=== PATIENT | male | born 1960 | race Caucasian/White ===

== ENCOUNTER 2018-05-01 13:42 | Emergency (ER) | payer OTHER ==
[2018-05-01 14:14] VITALS: TEMP 98.1
[2018-05-01] MEDS ORDERED: ONDANSETRON 4 MG/2 ML VIAL IVP STA (15:12)
[2018-05-01] MEDS ORDERED: SODIUM CHLORIDE 0.9% 1,000 ML IV STA (15:12)
--- NOTE | 2018-05-01 15:19 | ED ---
General Adult HPI - General Chief complaint: Abdominal Pain Stated complaint: vomiting/poss bowel obstruction-sent by Time Seen by Provider: 05/01/18 15:07 Source: patient, RN notes reviewed Mode of arrival: wheelchair Limitations: no limitations - History of Present Illness Initial comments: Patient 58-year-old male presenting to the emergency room today by his family doctor for rule out bowel obstruction. Patient does admit that he's had increased nausea vomiting. States he did not have a bowel today but did have 1 yesterday. States he was having diarrhea off and on. Does to some abdominal pain off and on over the last week. Patient denies any other complaints or symptoms. Patient denies any recent fever, chills, shortness of breath, chest pain, back pain, numbness or tingling, dysuria or hematuria, constipation, headaches or visual changes, or any other complaints. - Related Data Home Medications Medication Instructions Recorded Confirmed Lovastatin [Mevacor] 40 mg PO DAILY 05/01/18 05/01/18 Pioglitazone [Actos] 30 mg PO DAILY 05/01/18 05/01/18 metFORMIN HCL [Glucophage] 850 mg PO TID 05/01/18 05/01/18 Previous Rx's Medication Instructions Recorded Omeprazole [PriLOSEC] 20 mg PO AC-BRKFST 14 Days cap 05/01/18 Ondansetron Odt [Zofran ODT] 4 mg PO Q8HR PRN #20 tab 05/01/18 Allergies Allergy/AdvReac Type Severity Reaction Status Date / Time No Known Allergies Allergy Verified 05/01/18 15:24 Review of Systems ROS Statement: Those systems with pertinent positive or pertinent negative responses have been documented in the HPI. ROS Other: All systems not noted in ROS Statement are negative. Past Medical History Past Medical History: Diabetes Mellitus, Hyperlipidemia History of Any Multi-Drug Resistant Organisms: None Reported Past Surgical History: Orthopedic Surgery Past Psychological History: No Psychological Hx Reported Smoking Status: Never smoker Past Alcohol Use History: None Reported Past Drug Use History: None Reported General Exam - General Exam Comments Initial Comments: General: The patient is awake and alert, in no distress, and does not appear acutely ill. Eye: Pupils are equal, round and reactive to light, extra-ocular movements are intact. No nystagmus. There is normal conjunctiva bilaterally. No signs of icterus. Ears, nose, mouth and throat: There are moist mucous membranes and no oral lesions. Neck: The neck is supple, there is no tenderness or JVD. Cardiovascular: There is a regular rate and rhythm. No murmur, rub or gallop is appreciated. Respiratory: Lungs are clear to auscultation, respirations are non-labored, breath sounds are equal. No wheezes, stridor, rales, or rhonchi. Gastrointestinal: Soft, non-distended, non-tender abdomen without masses or organomegaly noted. There is no rebound or guarding present. No CVA tenderness. Musculoskeletal: Normal ROM, no tenderness. Strength 5/5. Sensation intact. Neurological: A&O x 3. CN II-XII intact, There are no obvious motor or sensory deficits. Coordination appears grossly intact. Speech is normal. Skin: Skin is warm and dry and no rashes or lesions are noted. Psychiatric: Cooperative, appropriate mood & affect, normal judgment. Limitations: no limitations Course Vital Signs 05/01/18 05/01/18 14:12 15:39 Temperature 98.1 F Pulse Rate 100 91 Respiratory 20 18 Rate Blood Pressure 135/89 153/103 O2 Sat by Pulse 99 98 Oximetry Medical Decision Making - Medical Decision Making Patient's labs were reviewed that showed 12,000 white count is had multiple episodes of nausea vomiting diarrhea over the last few weeks. Patient Creatinine mildly elevated was given fluids here in emergency room. Patient is resting comfortable. CT of the abdomen and pelvis does show inflammation obvious soft tissue is no sign of bowel obstruction. Shows chronic inflammation around terminal ileum. Results were discussed with patient. At this time patient resting, appears abdomen was soft. He said no nausea vomiting here in the emergency room. Patient will be discharged home on nausea medication and Prilosec for his symptoms. Advised to follow-up family doctor and also GI for further evaluation. Patient was returning if symptoms increase worsen. - Lab Data Result diagrams: 05/01/18 15:32 05/01/18 15:32 Lab Results 05/01/18 05/01/18 05/01/18 Range/Units 15:32 15:32 15:32 WBC 12.8 H (3.8-10.6) k/uL RBC 5.03 (4.30-5.90) m/uL Hgb 14.0 (13.0-17.5) gm/dL Hct 42.2 (39.0-53.0) % MCV 83.9 (80.0-100.0) fL MCH 27.9 (25.0-35.0) pg MCHC 33.2 (31.0-37.0) g/dL RDW 13.5 (11.5-15.5) % Plt Count 254 (150-450) k/uL Neutrophils % 81 % Lymphocytes % 12 % Monocytes % 4 % Eosinophils % 1 % Basophils % 0 % Neutrophils # 10.4 H (1.3-7.7) k/uL Lymphocytes # 1.5 (1.0-4.8) k/uL Monocytes # 0.6 (0-1.0) k/uL Eosinophils # 0.2 (0-0.7) k/uL Basophils # 0.0 (0-0.2) k/uL PT 10.5 (9.0-12.0) sec INR 1.1 (<1.2) APTT 22.3 (22.0-30.0) sec Sodium 137 (137-145) mmol/L Potassium 5.6 H (3.5-5.1) mmol/L Chloride 97 L (98-107) mmol/L Carbon Dioxide 26 (22-30) mmol/L Anion Gap 14 mmol/L BUN 31 H (9-20) mg/dL Creatinine 1.58 H (0.66-1.25) mg/dL Est GFR (CKD-EPI)AfAm 55 (>60 ml/min/1.73 sqM) Est GFR (CKD-EPI)NonAf 47 (>60 ml/min/1.73 sqM) Glucose 203 H (74-99) mg/dL Calcium 10.3 H (8.4-10.2) mg/dL Total Bilirubin 0.5 (0.2-1.3) mg/dL AST 22 (17-59) U/L ALT 37 (21-72) U/L Alkaline Phosphatase 62 (38-126) U/L Total Protein 7.4 (6.3-8.2) g/dL Albumin 4.8 (3.5-5.0) g/dL Amylase 40 (30-110) U/L Lipase 75 (23-300) U/L Urine Color Urine Appearance (Clear) Urine pH (5.0-8.0) Ur Specific [place] (1.001-1.035) Urine Protein (Negative) Urine Glucose (UA) (Negative) Urine Ketones (Negative) Urine Blood (Negative) Urine Nitrite (Negative) Urine Bilirubin (Negative) Urine Urobilinogen (<2.0) mg/dL Ur Leukocyte Esterase (Negative) 05/01/18 Range/Units 16:30 WBC (3.8-10.6) k/uL RBC (4.30-5.90) m/uL Hgb (13.0-17.5) gm/dL Hct (39.0-53.0) % MCV (80.0-100.0) fL MCH (25.0-35.0) pg MCHC (31.0-37.0) g/dL RDW (11.5-15.5) % Plt Count (150-450) k/uL Neutrophils % % Lymphocytes % % Monocytes % % Eosinophils % % Basophils % % Neutrophils # (1.3-7.7) k/uL Lymphocytes # (1.0-4.8) k/uL Monocytes # (0-1.0) k/uL Eosinophils # (0-0.7) k/uL Basophils # (0-0.2) k/uL PT (9.0-12.0) sec INR (<1.2) APTT (22.0-30.0) sec Sodium (137-145) mmol/L Potassium (3.5-5.1) mmol/L Chloride (98-107) mmol/L Carbon Dioxide (22-30) mmol/L Anion Gap mmol/L BUN (9-20) mg/dL Creatinine (0.66-1.25) mg/dL Est GFR (CKD-EPI)AfAm (>60 ml/min/1.73 sqM) Est GFR (CKD-EPI)NonAf (>60 ml/min/1.73 sqM) Glucose (74-99) mg/dL Calcium (8.4-10.2) mg/dL Total Bilirubin (0.2-1.3) mg/dL AST (17-59) U/L ALT (21-72) U/L Alkaline Phosphatase (38-126) U/L Total Protein (6.3-8.2) g/dL Albumin (3.5-5.0) g/dL Amylase (30-110) U/L Lipase (23-300) U/L Urine Color Yellow Urine Appearance Clear (Clear) Urine pH 5.0 (5.0-8.0) Ur Specific [place] 1.021 (1.001-1.035) Urine Protein Trace H (Negative) Urine Glucose (UA) 2+ H (Negative) Urine Ketones Negative (Negative) Urine Blood Negative (Negative) Urine Nitrite Negative (Negative) Urine Bilirubin Negative (Negative) Urine Urobilinogen <2.0 (<2.0) mg/dL Ur Leukocyte Esterase Negative (Negative) Disposition Clinical Impression: Esophagitis Disposition: HOME SELF-CARE Condition: Good Instructions: Esophagitis (ED) Additional Instructions: Please use medication as discussed. Please follow-up with GI/family doctor in the next 2 days. Please return to emergency room if the symptoms increase or worsen or for any other concerns. Prescriptions: Omeprazole [PriLOSEC] 20 mg PO AC-BRKFST 14 Days cap Ondansetron Odt [Zofran ODT] 4 mg PO Q8HR PRN #20 tab PRN Reason: Nausea Is patient prescribed a controlled substance at d/c from ED?: No Referrals: Romel Martinez DO [Primary Care Provider] - 1-2 days Madhavi Boland MD [STAFF PHYSICIAN] - 1-2 days Time of Disposition: 16:55
[2018-05-01 15:40] VITALS: RESP 18
[2018-05-01 15:44] LABS: Basophils % (A) 0 %; Eosinophils # (A) 0.2 k/uL (0-0.7); Eosinophils % (A) 1 %; HCT 42.2 % (39.0-53.0); Lymphocytes # (A) 1.5 k/uL (1.0-4.8); Lymphocytes % (A) 12 %; MCH 27.9 pg (25.0-35.0); MCHC 33.2 g/dL (31.0-37.0); MCV 83.9 fL (80.0-100.0); Mean Platelet Volume 7.5; Monocytes # (A) 0.6 k/uL (0-1.0); Monocytes % (A) 4 %; Neutrophils # (A) 10.4 k/uL (1.3-7.7); Neutrophils % (A) 81 %; Platelet Count 254 k/uL (150-450); RBC 5.03 m/uL (4.30-5.90); RDW 13.5 % (11.5-15.5); WBC 12.8 k/uL (3.8-10.6)
[2018-05-01 15:50] LABS: Albumin 4.8 g/dL (3.5-5.0); Calcium 10.3 mg/dL (8.4-10.2); Potassium 5.6 mmol/L (3.5-5.1); Total Bilirubin 0.5 mg/dL (0.2-1.3); Total Protein 7.4 g/dL (6.3-8.2)
[2018-05-01 16:26] LABS: INR 1.1 (<1.2); Partial Thromboplastin Time 22.3 sec (22.0-30.0); Prothrombin Time 10.5 sec (9.0-12.0)
--- NOTE | 2018-05-01 16:36 | CT ---
EXAMINATION TYPE: CT abdomen pelvis w con DATE OF EXAM: 05/01/2018 COMPARISON: None HISTORY: Abdominal pain and vomiting. CT DLP: 1502 mGycm Automated exposure control for dose reduction was used. TECHNIQUE: Helical acquisition of images was performed from the lung bases through the pelvis. CONTRAST: Performed without Oral Contrast and with IV Contrast, patient injected with 80 mL of Isovue M300. FINDINGS: LUNG BASES: No significant abnormality is appreciated. Circumferential distal esophageal mucosal thickening is likely related to incomplete distention. Alte rnatively esophagitis could be considered. No proximal dilatation to suggest obstruction. LIVER/GB: No significant abnormality is appreciated. No cholelithiasis. Gallbladder is partially cont racted. PANCREAS: No ductal dilatation. Pancreas enhances homogeneously. SPLEEN: No splenomegaly. ADRENALS: No nodularity or thickening. KIDNEYS: Few too small to accurately characterize bilateral cortical renal lesions may represent cyst s. FREE AIR: No free air is visualized. RETROPERITONEAL ADENOPATHY: No greater than 1 cm short axis lymph nodes are seen within the abdomen or pelvis. REPRODUCTIVE ORGANS: No significant abnormality is seen URINARY BLADDER: No significant abnormality is seen. OSSEOUS STRUCTURES: Patchy geographic areas of lucency are seen within the right femur with probable geode in the left femoral head and lucent lesions of the posterior acetabulum that could represent s ubchondral cyst formation. However further nonemergent evaluation with MRI is recommended of the hips . BOWEL: There is no evidence of dilated large or small bowel. Terminal ileum demonstrates submucosal fat deposition which could relate to chronic inflammatory change however no surrounding inflammatory changes seen on the current examination. Appendix is air-filled and within normal limits. OTHER: Abdominal aorta is of normal course and caliber with moderate calcific atheromatous changes. P ost coil changes are seen in the inguinal canals. IMPRESSION: 1. NO EVIDENCE OF BOWEL OBSTRUCTION OR ACUTE COLITIS ON CT. CIRCUMFERENTIAL DISTAL ESOPHAGEAL MUCOSAL THICKENING MAY RELATE TO INCOMPLETE DISTENTION OR MILD ESOPHAGITIS. ADDITIONALLY SUBMUCOSAL FAT DEPO SITION WITHIN THE TERMINAL ILEUM MAY RELATE TO A CHRONIC INFLAMMATORY PROCESS. 2. NONSPECIFIC FINDINGS WITHIN THE BILATERAL HIPS THAT COULD BE DEGENERATIVE ALTHOUGH BONE MARROW REP LACING PROCESS IS POSSIBLE AND THEREFORE NONEMERGENT FULL CHARACTERIZATION WITH MR OF THE HIPS IS REC OMMENDED.
[2018-05-01 16:43] LABS: Appearance,Urine Clear (Clear); Bilirubin,Urine Negative (Negative); Color,Urine Yellow; Glucose,Urine (UA) 2+ (Negative); Ketones,Urine Negative (Negative); Protein,Urine Trace (Negative); Specific Gravity,Urine 1.021 (1.001-1.035)
[2018-05-01 16:44] LABS: Blood,Urine Negative (Negative); Leukocyte Esterase,Urine Negative (Negative); Nitrite,Urine Negative (Negative); Urobilinogen,Urine <2.0 mg/dL (<2.0)
[2018-05-01 17:34] VITALS: BP 122/78; PULSE 89
== END 2018-05-01 17:28 | disposition home or self-care (01) ==
LOC: EC 13:42
DX: K20.9 Esophagitis, unspecified (principal); E11.9 Type 2 diabetes mellitus without complications; E78.5 Hyperlipidemia, unspecified; Z79.84 Long term (current) use of oral hypoglycemic drugs; Z79.899 Other long term (current) drug therapy
CPT/HCPCS: 36415; 80053; 82150; 83690; 85025; 85610; 85730; 81003; 74177; 99284; 96374; 96361; J2405; Q9967

== ENCOUNTER → 2018-06-14 | Outpatient (CLI) | payer OTHER ==
--- NOTE | 2018-06-15 06:47 | MR ---
EXAMINATION TYPE: MR hip LT wo con DATE OF EXAM: 06/14/2018 COMPARISON: CT abdomen and pelvis May 01, 2018 HISTORY: Lt hip lesion, Abnormal CT scan Standard multiplanar, multisequence MRI departmental protocol Multiplanar, multisequence images of the pelvis focusing on left hip were acquired. FINDINGS: Bone marrow signal intensity shows overall heterogeneity consistent with red marrow reconve rsion. No suspicious focal edema is seen. There is 8 mm oval lesion of T1 hypointensity and T2 hyperi ntensity in the superior lateral left femoral head felt to reflect benign etiology. No additional foc al osseous lesions are present. No linear T1 signal to suggest avascular necrosis is identified. Ther e is mild to moderate symmetric axial joint space loss in both hips with small symmetric hip joint ef fusions. Sacroiliac joints are maintained. Pubic symphysis is intact. No suspicious edema seen at lev el of greater or lesser trochanters bilaterally. Muscle bulk is fairly well preserved bilaterally. No suspicious groin adenopathy or hernias are seen. There is small to moderate-sized left scrotal fluid collection or hydrocele incidentally noted. Bladd er is poorly distended and thus suboptimally evaluated. Prostate gland is normal in size. No suspicio us bowel dilatation is seen. No concerning pelvic fluid collection is noted. IMPRESSION: No suspicious osseous edema is evident. Findings consistent with red marrow reconversion noted.
== END | disposition home or self-care (01) ==
LOC: RADMRIMAIN 18:03
PROVIDERS: ATTEND Family Medicine
DX: R93.8 Abnormal findings on diagnostic imaging of other specified body structures (principal)

== ENCOUNTER → 2018-09-11 | Outpatient (CLI) | payer OTHER ==
--- NOTE | 2018-09-11 15:15 | MR ---
EXAMINATION TYPE: MR brain/orbits wo/w con DATE OF EXAM: 09/11/2018 COMPARISON: NONE HISTORY: 6th Nerve palsy. Left-sided hearing loss and eye issues per patient. TECHNIQUE: Multiplanar, multisequence images of the brain and brainstem is performed without and with IV contras t, utilizing 7.5 mL intravenous Gadavist . Dedicated imaging of the orbits was also performed after b rain imaging. FINDINGS: Diffusion weighted images demonstrate no evidence of a recent infarct or other diffusion ab normality. There is no worrisome extra-axial fluid collection. There is mild ventricular and sulcal prominence consistent with mild age-related cerebral atrophy. There is occasional focus of T2 hyperin tensity seen throughout the deep and periventricular white matter. Lesions are nonspecific in appeara nce and distribution but most likely on basis of product of chronic small vessel ischemic change in p atient of this age. Midline structures demonstrate normal morphology. The craniocervical junction appears within normal limits. Post contrast images demonstrate no abnormal enhancement. The dural venous sinuses appear pa tent. No some patchy fluid signal right mastoid air cells is present axial image 6. The globes are in tact bilaterally. Rectus muscles are symmetric and felt within normal limits. No suspicious intracona l mass is identified. No suspicious asymmetric enhancement is identified. Optic chiasm is not effaced . IMPRESSION: No significant finding is seen to account for patient's symptoms of cranial nerve pals y. No suspicious mass or enhancement is appreciated.
== END | disposition home or self-care (01) ==
LOC: RADMRIMAIN 13:31
PROVIDERS: ATTEND Ophthalmology
DX: H49.20 Sixth [abducent] nerve palsy, unspecified eye (principal)
CPT/HCPCS: 82565; 84520; 70543; 70553; 36415; A9585

== ENCOUNTER 2022-06-17 12:40 | Inpatient (IN) | payer MEDICARE, OTHER ==
--- NOTE | 2022-06-17 13:25 | XR ---
EXAMINATION TYPE: XR chest 2V DATE OF EXAM: 06/17/2022 1:19 PM COMPARISON: none TECHNIQUE: XR chest 2V Frontal and lateral views of the chest. CLINICAL INDICATION:Male, 62 years old with history of difficulty breathing; FINDINGS: Lungs/Pleura: There is no evidence of pleural effusion, focal consolidation, or pneumothorax. Pulmonary vascularity: Pulmonary vascular congestion. Heart/mediastinum: Cardiomediastinal silhouette is enlarged and stable. Musculoskeletal: No acute osseous pathology. IMPRESSION: Cardiomegaly and mild pulmonary vascular congestion. Correlate with BNP for congestive heart failure.
[2022-06-17 13:26] LABS: Basophils # (A) 0.1 k/uL (0-0.2); Basophils % (A) 1 %; Eosinophils # (A) 0.4 k/uL (0-0.7); Eosinophils % (A) 4 %; HCT 32.6 % (39.0-53.0); HGB 10.6 gm/dL (13.0-17.5); Lymphocytes % (A) 10 %; MCH 28.5 pg (25.0-35.0); MCHC 32.5 g/dL (31.0-37.0); MCV 87.7 fL (80.0-100.0); Mean Platelet Volume 7.4; Monocytes # (A) 0.7 k/uL (0-1.0); Monocytes % (A) 8 %; Neutrophils # (A) 7.2 k/uL (1.3-7.7); Neutrophils % (A) 75 %; Platelet Count 272 k/uL (150-450); RBC 3.71 m/uL (4.30-5.90); RDW 13.7 % (11.5-15.5); WBC 9.6 k/uL (3.8-10.6)
[2022-06-17 13:37] LABS: Calcium 9.4 mg/dL (8.4-10.2); Magnesium 1.2 mg/dL (1.6-2.3); Partial Thromboplastin Time 26.5 sec (22.0-30.0); Total Bilirubin 0.5 mg/dL (0.2-1.3); Total Protein 6.4 g/dL (6.3-8.2)
[2022-06-17] MEDS ORDERED: FUROSEMIDE 10 MG/ML 4 ML VIAL IV STA (14:37)
--- NOTE | 2022-06-17 14:46 | ED ---
General Adult HPI - General Chief complaint: Shortness of Breath Stated complaint: Congestive heart failure Time Seen by Provider: 06/17/22 12:54 Source: patient, RN notes reviewed Mode of arrival: ambulatory Limitations: no limitations - History of Present Illness Initial comments: 62-year-old male presents emergency Department chief complaint of shortness of breath. Patient's been having increasing shortness breath, leg swelling. Patient states that he was sent in by [facility] for concerns of CHF. Patient states she's been having difficulty laying flat states he has sees multiples, states that he's noticed that his been fractured 30 pounds. He has no history of CHF does have a history of hypertension states she's positives medications. Patient states he recently moved patient states his legs are painful from the swelling, feels short of breath a short distances of walking. Patient denies any. Chills no cough or cold-like symptoms. - Related Data Home Medications Medication Instructions Recorded Confirmed Lovastatin [Mevacor] 40 mg PO DAILY 05/01/18 06/17/22 Ferrous Sulfate [Feosol] 325 mg PO DAILY 06/17/22 06/17/22 Glimepiride [Amaryl] 2 mg PO W/BRKFST 06/17/22 06/17/22 amLODIPine [Norvasc] 5 mg PO DAILY 06/17/22 06/17/22 lisinopriL 40 mg PO DAILY 06/17/22 06/17/22 metFORMIN HCL 1,000 mg PO BID-W/MEALS 06/17/22 06/17/22 Allergies Allergy/AdvReac Type Severity Reaction Status Date / Time No Known Allergies Allergy Verified 06/17/22 14:33 Review of Systems ROS Statement: Those systems with pertinent positive or pertinent negative responses have been documented in the HPI. ROS Other: All systems not noted in ROS Statement are negative. Past Medical History Past Medical History: Diabetes Mellitus, Hyperlipidemia History of Any Multi-Drug Resistant Organisms: None Reported Past Surgical History: Orthopedic Surgery Past Psychological History: No Psychological Hx Reported Smoking Status: Never smoker Past Alcohol Use History: None Reported Past Drug Use History: None Reported General Exam Limitations: no limitations General appearance: alert, in no apparent distress Head exam: Present: atraumatic, normocephalic, normal inspection Eye exam: Present: normal appearance, PERRL, EOMI. Absent: scleral icterus, conjunctival injection, periorbital swelling ENT exam: Present: normal exam, normal oropharynx, mucous membranes moist Neck exam: Present: normal inspection, full ROM. Absent: tenderness, mening ismus, lymphadenopathy Respiratory exam: Present: rales, decreased breath sounds. Absent: normal lung sounds bilaterally, respiratory distress, wheezes, rhonchi, stridor Cardiovascular Exam: Present: regular rate, normal rhythm, normal heart sounds. Absent: systolic murmur, diastolic murmur, rubs, gallop, clicks Extremities exam: Present: pedal edema (Significant pedal edema) Course Vital Signs 06/17/22 06/17/22 06/17/22 12:42 13:59 14:00 Temperature 98.3 F Pulse Rate 89 78 Respiratory 23 17 17 Rate Blood Pressure 187/92 153/77 O2 Sat by Pulse 96 92 L Oximetry Medical Decision Making - Lab Data Result diagrams: 06/17/22 12:52 06/17/22 12:52 Lab Results 06/17/22 06/17/22 06/17/22 Range/Units 12:52 12:52 12:52 WBC 9.6 (3.8-10.6) k/uL RBC 3.71 L (4.30-5.90) m/uL Hgb 10.6 L (13.0-17.5) gm/dL Hct 32.6 L (39.0-53.0) % MCV 87.7 (80.0-100.0) fL MCH 28.5 (25.0-35.0) pg MCHC 32.5 (31.0-37.0) g/dL RDW 13.7 (11.5-15.5) % Plt Count 272 (150-450) k/uL MPV 7.4 Neutrophils % 75 % Lymphocytes % 10 % Monocytes % 8 % Eosinophils % 4 % Basophils % 1 % Neutrophils # 7.2 (1.3-7.7) k/uL Lymphocytes # 1.0 (1.0-4.8) k/uL Monocytes # 0.7 (0-1.0) k/uL Eosinophils # 0.4 (0-0.7) k/uL Basophils # 0.1 (0-0.2) k/uL PT 11.0 (9.0-12.0) sec INR 1.0 (<1.2) APTT 26.5 (22.0-30.0) sec Sodium 132 L (137-145) mmol/L Potassium 5.0 (3.5-5.1) mmol/L Chloride 98 (98-107) mmol/L Carbon Dioxide 23 (22-30) mmol/L Anion Gap 11 mmol/L BUN 22 H (9-20) mg/dL Creatinine 1.36 H (0.66-1.25) mg/dL Est GFR (CKD-EPI)AfAm 64 (>60 ml/min/1.73 sqM) Est GFR (CKD-EPI)NonAf 55 (>60 ml/min/1.73 sqM) Glucose 130 H (74-99) mg/dL Calcium 9.4 (8.4-10.2) mg/dL Magnesium 1.2 L (1.6-2.3) mg/dL Total Bilirubin 0.5 (0.2-1.3) mg/dL AST 25 (17-59) U/L ALT 21 (4-49) U/L Alkaline Phosphatase 69 (38-126) U/L Troponin I (0.000-0.034) ng/mL NT-Pro-B Natriuret Pep pg/mL Total Protein 6.4 (6.3-8.2) g/dL Albumin 4.0 (3.5-5.0) g/dL 06/17/22 06/17/22 Range/Units 12:52 12:52 WBC (3.8-10.6) k/uL RBC (4.30-5.90) m/uL Hgb (13.0-17.5) gm/dL Hct (39.0-53.0) % MCV (80.0-100.0) fL MCH (25.0-35.0) pg MCHC (31.0-37.0) g/dL RDW (11.5-15.5) % Plt Count (150-450) k/uL MPV Neutrophils % % Lymphocytes % % Monocytes % % Eosinophils % % Basophils % % Neutrophils # (1.3-7.7) k/uL Lymphocytes # (1.0-4.8) k/uL Monocytes # (0-1.0) k/uL Eosinophils # (0-0.7) k/uL Basophils # (0-0.2) k/uL PT (9.0-12.0) sec INR (<1.2) APTT (22.0-30.0) sec Sodium (137-145) mmol/L Potassium (3.5-5.1) mmol/L Chloride (98-107) mmol/L Carbon Dioxide (22-30) mmol/L Anion Gap mmol/L BUN (9-20) mg/dL Creatinine (0.66-1.25) mg/dL Est GFR (CKD-EPI)AfAm (>60 ml/min/1.73 sqM) Est GFR (CKD-EPI)NonAf (>60 ml/min/1.73 sqM) Glucose (74-99) mg/dL Calcium (8.4-10.2) mg/dL Magnesium (1.6-2.3) mg/dL Total Bilirubin (0.2-1.3) mg/dL AST (17-59) U/L ALT (4-49) U/L Alkaline Phosphatase (38-126) U/L Troponin I <0.012 (0.000-0.034) ng/mL NT-Pro-B Natriuret Pep 726 pg/mL Total Protein (6.3-8.2) g/dL Albumin (3.5-5.0) g/dL Disposition Clinical Impression: Pulmonary edema, Hypoxia, Dyspnea Disposition: ADMITTED IP TO THIS HOSP Condition: Poor Referrals: None,Stated [Primary Care Provider] - 1-2 days Time of Disposition: 14:46
[2022-06-17] MEDS ORDERED: ASPIRIN 325 MG TAB PO STA (15:04)
[2022-06-17 16:12] LABS: Appearance,Urine Clear (Clear); Bacteria,Urine Rare /hpf; Bilirubin,Urine Negative (Negative); Blood,Urine Negative (Negative); Color,Urine Light Yellow; Glucose,Urine (UA) Negative (Negative); Ketones,Urine Negative (Negative); Leukocyte Esterase,Urine Negative (Negative); Mucus,Urine Rare /hpf; Nitrite,Urine Negative (Negative); PH, Urine 6.5 (5.0-8.0); Protein,Urine 2+ (Negative); RBC,Urine 1 /hpf (0-5); Specific Gravity,Urine 1.008 (1.001-1.035); Squamous Epithelial Cell,Urine <1 /hpf (0-4); Urobilinogen,Urine <2.0 mg/dL (<2.0); WBC,Urine 1 /hpf (0-5)
[2022-06-17] MEDS ORDERED: DEXTROSE 50% SYRINGE 50 ML IVP PRN ×2 (18:48)
--- NOTE | 2022-06-17 18:52 | P.HPIM ---
History of Present Illness H&P Date: 06/17/22 This is a pleasant 62-year-old male who presents to [facility] for increased shortness of breath and lower extremity edema over the past month. She has a past medical history of hypertension, diabetes, morbid obesity and hyperlipidemia. Patient had an appointment with his PCP earlier today and due to symptoms as described was sent to the hospital for further evaluation. She has noted that when he climbs up and down the stairs a he does get winded and has to stop to catch his breath. Patient also admits that it is difficult to lay flat on his back. She denies alcohol or drug abuse. Cup in the ER did reveal acute kidney injury with a creatinine of 1.36 sodium of 132 and magnesium 1.2. Further lab abnormalities include hemoglobin of 10.6 hematocrit 32.6. At time of examination, patient was resting in bed comfortably and did not look in acute distress. Patient denied chest pain. Patient further denied nausea vomiting fevers or chills. Patient admits to exertional dyspnea. Review of Systems A 14 point review of systems was assessed patient was only positive for those pertinent in HPI Past Medical History Past Medical History: Diabetes Mellitus, Hyperlipidemia History of Any Multi-Drug Resistant Organisms: None Reported Past Surgical History: Orthopedic Surgery Past Psychological History: No Psychological Hx Reported Smoking Status: Never smoker Past Alcohol Use History: None Reported Past Drug Use History: None Reported Medications and Allergies Home Medications Medication Instructions Recorded Confirmed Type Lovastatin [Mevacor] 40 mg PO DAILY 05/01/18 06/17/22 History Ferrous Sulfate [Feosol] 325 mg PO DAILY 06/17/22 06/17/22 History Glimepiride [Amaryl] 2 mg PO W/BRKFST 06/17/22 06/17/22 History amLODIPine [Norvasc] 5 mg PO DAILY 06/17/22 06/17/22 History lisinopriL 40 mg PO DAILY 06/17/22 06/17/22 History metFORMIN HCL 1,000 mg PO BID-W/MEALS 06/17/22 06/17/22 History Allergies Allergy/AdvReac Type Severity Reaction Status Date / Time No Known Allergies Allergy Verified 06/17/22 14:33 Physical Exam Osteopathic Statement: *. No significant issues noted on an osteopathic structu ral exam other than those noted in the History and Physical/Consult. Vitals: Vital Signs Temp Pulse Resp BP Pulse Ox 06/17/22 18:28 82 15 161/48 92 L 06/17/22 15:10 78 16 146/86 96 06/17/22 14:00 17 06/17/22 13:59 78 17 153/77 92 L 06/17/22 12:42 98.3 F 89 23 187/92 96 Intake and Output 06/17/22 06/17/22 06/17/22 06:59 14:59 22:59 Other: Weight 108.862 kg General: [non toxic], [no distress], [appears at stated age obese] Derm: [warm], [dry] Head: [atraumatic], [normocephalic], [symmetric] Eyes: [EOMI], [no lid lag], [anicteric sclera] Mouth: [no lip lesion], [mucus membranes moist] Cardiovascular: [S1S2 reg], [no murmur], [positive posterior tibial pulse bilateral] bilateral lower extremity edema +3, Lungs: [CTA bilateral], [no rhonchi, no rales] , [no accessory muscle use] Abdominal: [soft], [ nontender to palpation], [no guarding], [no appreciable organomegaly] Ext: [no gross muscle atrophy], [no edema], [no contractures] Neuro: [ CN II-XI grossly intact], [no focal neuro deficits] Psych: [Alert], [oriented], [appropriate affect] Results CBC & Chem 7: 06/17/22 12:52 06/17/22 12:52 Labs: Abnormal Lab Results - Last 24 Hours (Table) 06/17/22 06/17/22 06/17/22 Range/Units 12:52 12:52 16:01 RBC 3.71 L (4.30-5.90) m/uL Hgb 10.6 L (13.0-17.5) gm/dL Hct 32.6 L (39.0-53.0) % Sodium 132 L (137-145) mmol/L BUN 22 H (9-20) mg/dL Creatinine 1.36 H (0.66-1.25) mg/dL Glucose 130 H (74-99) mg/dL Magnesium 1.2 L (1.6-2.3) mg/dL Urine Protein 2+ H (Negative) Urine Bacteria Rare H (None) /hpf Urine Mucus Rare H (None) /hpf Thrombosis Risk Factor Assmnt - DVT/VTE Prophylaxis DVT/VTE Prophylaxis: Pharmacologic Prophylaxis ordered Assessment and Plan Assessment: 1. Exertional dyspnea with bilateral lower extremity edema likely due to acute exacerbation of CHF ProBNP elevated at 726 Chest x-ray revealed cardiomegaly and mild pulmonary vascular congestion Obtain echo consult cardiology Telemetry IV diuresis Strict I's and O's Check d-dimer 2. CKD creatinine today is 1.36 average is 1.5 Monitor BUN and creatinine 3. Normocytic anemia Check iron levels Trend CBC 4. History of hypertension At metoprolol 50 mg by mouth twice a day with parameters Continue lisinopril Monitor vitals 5. History of hyperlipidemia Restart statin and aspirin 6. History of diabetes mellitus type 2 [id number] Restart home medication Amaryl hold metformin Insulin sliding scale 7. Hypomagnesemia Magnesium sulfate ordered 8. GI DVT prophylaxis 9. A.m. labs Disposition home with home care Anticipated length of stay is greater than 2 midnight days Patient is a full code Greater than 40 minutes spent coordinating care documenting and counseling patient Time with Patient: Greater than 30
[2022-06-17] MEDS: MAGNESIUM SULFATE-D5W PMX 1 GM in DEXTROSE/WATER 1 100ML.BAG IVPB SCH ×4 (19:54→23:09)
[2022-06-17] MEDS: FUROSEMIDE 10 MG/ML 2 ML VIAL IV SCH (19:55)
[2022-06-17] MEDS: METOPROLOL TARTRATE 50 MG TAB PO SCH (19:55)
[2022-06-17] MEDS: ATORVASTATIN 10 MG TAB PO SCH (19:58)
[2022-06-17] MEDS: HEPARIN SODIUM,PORCINE/PF 5,000 UNIT/0.5 ML SYRINGE SQ SCH ×2 (19:58→23:10)
[2022-06-17] MEDS: FERROUS SULFATE 325 MG TAB PO SCH (19:58)
[2022-06-17] MEDS ORDERED: FAMOTIDINE 20 MG TAB PO SCH (21:00)
[2022-06-18 00:04] LABS: Glucose,Whole Blood 173 mg/dL (70-110)
[2022-06-18 06:14] LABS: Glucose,Whole Blood 159 mg/dL (70-110)
[2022-06-18] MEDS: INSULIN ASPART (NovoLOG) 100 UNIT/ML VIAL SQ SCH ×3 (07:29→16:38)
[2022-06-18] MEDS: HEPARIN SODIUM,PORCINE/PF 5,000 UNIT/0.5 ML SYRINGE SQ SCH ×2 (07:29→16:38)
[2022-06-18] MEDS: GLIMEPIRIDE 2 MG TAB PO SCH (07:29)
[2022-06-18] MEDS ORDERED: IPRATROPIUM-ALBUTEROL 3 ML NEB INHALATION PRN (07:45)
[2022-06-18] MEDS: METOPROLOL TARTRATE 50 MG TAB PO SCH ×2 (08:04→19:49)
[2022-06-18] MEDS: ATORVASTATIN 10 MG TAB PO SCH (08:04)
[2022-06-18] MEDS: FUROSEMIDE 10 MG/ML 2 ML VIAL IV SCH ×2 (08:04→19:50)
[2022-06-18] MEDS: lisinopriL 20 MG TAB PO SCH (08:04)
[2022-06-18] MEDS: ASPIRIN 81 MG PO SCH (08:04)
[2022-06-18] MEDS: FERROUS SULFATE 325 MG TAB PO SCH (08:04)
[2022-06-18 08:34] LABS: ALT 21 U/L (4-49); AST 27 U/L (17-59); African American GFR (CKD) 54 (>60 ml/min/1.73 sqM); Albumin 4.1 g/dL (3.5-5.0); Albumin/Globulin Ratio 1.8; Alkaline Phosphatase 73 U/L (38-126); Anion Gap 10 mmol/L; Blood Urea Nitrogen 24 mg/dL (9-20); Calcium 9.4 mg/dL (8.4-10.2); Carbon Dioxide 27 mmol/L (22-30); Chloride 94 mmol/L (98-107); Globulin 2.3 g/dL; Glucose 177 mg/dL (74-99); Magnesium 1.9 mg/dL (1.6-2.3); Non-African American GFR(CKD) 46 (>60 ml/min/1.73 sqM); Potassium 5.1 mmol/L (3.5-5.1); Sodium 131 mmol/L (137-145); Total Bilirubin 0.6 mg/dL (0.2-1.3); Total Protein 6.4 g/dL (6.3-8.2)
[2022-06-18] MEDS: amLODIPine 5 MG TAB PO SCH (08:39)
[2022-06-18] MEDS ORDERED: ASPIRIN 325 MG TAB PO SCH (09:00)
--- NOTE | 2022-06-18 09:15 | US ---
EXAMINATION TYPE: US venous doppler duplex LE DATE OF EXAM: 06/18/2022 8:41 AM COMPARISON: NONE CLINICAL HISTORY: elevated d-dimer. Bilateral lower extremity edema SIDE PERFORMED: Bilateral TECHNIQUE: The lower extremity deep venous system is examined utilizing real time linear array sonog onofre with graded compression, doppler sonography and color-flow sonography. VESSELS IMAGED: Common Femoral Vein Deep Femoral Vein Greater Saphenous Vein * Femoral Vein Popliteal Vein Small Saphenous Vein * Proximal Calf Veins (* superficial vessels) Right Leg: Negative for DVT Left Leg: Negative for DVT IMPRESSION: No evidence for DVT.
--- NOTE | 2022-06-18 09:19 | P.CRDCN ---
History of Present Illness History of present illness: HISTORY OF PRESENTING ILLNESS This is a pleasant 62-year-old male past medical history significant for type 2 diabetes, hypertension, dyslipidemia, chronic kidney disease. 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 He is unsure who was PCP is, currently goes to [facility]. We have been asked to see in consultation for congestive heart failure. Patient presents to the emergency room with worsening shortness of breath, dyspnea on exertion, bilateral lower extremity edema, symptoms of o rthopnea and weight gain. He also noticed walking up the stairs is more difficult and has increased shortness of breath. Patient initially presented to [facility] and patient was recommended to go to the emergency department. He denies any history of CAD, NE, stroke. He does endorse someone telling him that he had kidney problems. Family history includes father had an NE. He denies any alcohol, tobacco or illicit drug use. He denies any chest pain, lightheadedness, dizziness, syncope or near syncope, palpitations. On admission patient's blood pressure was elevated 180s/90s. Chest xray was concerning for fluid overload. Patient was started on IV Lasix. Patient with documented 2L u rine output. DIAGNOSTICS * EKG reveals sinus rhythm, rate 84, slow R wave progression, no acute STT wave abnormalities suggest ischemia * Chest xray cardiomegaly, pulmonary vascular congestion. * Laboratory reviewed, WBC 9.6, hemoglobin 10.6, platelets 272, d-dimer 2.0, sodium 132, potassium 5.0, BUN 22, serum creatinine 1.36, magnesium 1.2, hemoglobin A1c 8.6, troponin negative, proBNP 726, TSH within normal limits * Current home medications include metformin 1000 mg twice a day, amlodipine 5 g daily, lovastatin 40 mg daily, glimepiride 2 mg daily, lisinopril 40 mg daily, ferrous sulfate REVIEW OF SYSTEMS At the time of my exam: CONSTITUTIONAL: Denies fever or chills. CARDIOVASCULAR: Denies chest pain,+ shortness of breath, +orthopnea, +LE edema Denies PND or palpitations. RESPIRATORY: Denies cough. GASTROINTESTINAL: Denies abdominal pain, diarrhea, constipation, nausea or vomiting. MUSCULOSKELETAL: Denies myalgias. NEUROLOGIC: Denies numbness, tingling, headacbe or weakness. ENDOCRINE: Denies fatigue, weight change, polydipsia or polyurina. GENITOURINARY: Denies burning, hematuria or urgency with micturation. HEMATOLOGIC: Denies history of anemia or bleeding. PHYSICAL EXAMINATION Blood pressure 155/53, heart rate 96, afebrile, saturations 90% on room air CONSTITUTIONAL: No apparent distress. HEENT: Head is normocephalic. Pupils are equal, round. Sclerae anicteric. Mucous membranes of the mouth are moist. +JVD. No carotid bruit. CHEST EXAMINATION: Lungs are crackles in the bases to auscultation. No chest wall tenderness is noted on palpation or with deep breathing. HEART EXAMINATION: Regular rate and rhythm. S1, S2 heard. No murmurs, gallops or rub. ABDOMEN: Distended, positive bowel sounds EXTREMITIES: 2+ peripheral pulses, 1-2+ bilateral lower extremity edema and no calf tenderness. NEUROLOGIC EXAMINATION: Patient is awake, alert and oriented x3. ASSESSMENT New onset acute heart failure exacerbation, unknown EF, echo pending Type 2 diabetes Chronic kidney disease, stage III Hypertension Dyslipidemia PLAN Continue IV Lasix Monitor I/Os daily weights, renal function and electrolytes Obtain 2D echocardiogram and doppler study to assess cardiac structure and function. Continue lisinopril, amlodipine and statin Continue beta carrie Further recommendations based on clinical course Nurse practitioner note has been reviewed by physician. Signing provider agrees with the documented findings, assessment, and plan of care. Past Medical History Past Medical History: Diabetes Mellitus, Hyperlipidemia History of Any Multi-Drug Resistant Organisms: None Reported Past Surgical History: Orthopedic Surgery Past Anesthesia/Blood Transfusion Reactions: No Reported Reaction Past Psychological History: No Psychological Hx Reported Smoking Status: Never smoker Past Alcohol Use History: None Reported Past Drug Use History: None Reported Medications and Allergies Home Medications Medication Instructions Recorded Confirmed Type Lovastatin [Mevacor] 40 mg PO DAILY 05/01/18 06/17/22 History Ferrous Sulfate [Feosol] 325 mg PO DAILY 06/17/22 06/17/22 History Glimepiride [Amaryl] 2 mg PO W/BRKFST 06/17/22 06/17/22 History amLODIPine [Norvasc] 5 mg PO DAILY 06/17/22 06/17/22 History lisinopriL 40 mg PO DAILY 06/17/22 06/17/22 History metFORMIN HCL 1,000 mg PO BID-W/MEALS 06/17/22 06/17/22 History Allergies Allergy/AdvReac Type Severity Reaction Status Date / Time No Known Allergies Allergy Verified 06/17/22 14:33 Physical Exam Vitals: Vital Signs Temp Pulse Pulse Resp BP BP Pulse Ox 06/18/22 02:18 97.9 F 70 18 153/72 93 L 06/17/22 20:04 98.0 F 84 20 184/86 94 L 06/17/22 20:00 98.0 F 84 20 189/86 94 L 06/17/22 18:28 82 15 161/48 92 L 06/17/22 15:10 78 16 146/86 96 06/17/22 14:00 17 06/17/22 13:59 78 17 153/77 92 L 06/17/22 12:42 98.3 F 89 23 187/92 96 Intake and Output 06/17/22 06/18/22 06/18/22 22:59 06:59 14:59 Intake Total 620 220 Output Total 875 1150 Balance -255 -930 Intake: Intake, IV Titration 300 100 Amount Magnesium Sulfate-D5w Pmx 300 100 1 gm In Dextrose/Water 1 100ml.bag @ 100 mls/hr IVPB Q1H [facility] Rx#: [id number] Oral 320 120 Output: Urine 875 1150 Other: Weight 108.862 kg 176 kg Results 06/17/22 12:52 06/18/22 07:29 Cardiac Enzymes 06/17/22 06/17/22 Range/Units 12:52 12:52 AST 25 (17-59) U/L Troponin I <0.012 (0.000-0.034) ng/mL Coagulation 06/17/22 Range/Units 12:52 PT 11.0 (9.0-12.0) sec APTT 26.5 (22.0-30.0) sec CBC 06/17/22 Range/Units 12:52 WBC 9.6 (3.8-10.6) k/uL RBC 3.71 L (4.30-5.90) m/uL Hgb 10.6 L (13.0-17.5) gm/dL Hct 32.6 L (39.0-53.0) % Plt Count 272 (150-450) k/uL Comprehensive Metabolic Panel 06/17/22 Range/Units 12:52 Sodium 132 L (137-145) mmol/L Potassium 5.0 (3.5-5.1) mmol/L Chloride 98 (98-107) mmol/L Carbon Dioxide 23 (22-30) mmol/L BUN 22 H (9-20) mg/dL Creatinine 1.36 H (0.66-1.25) mg/dL Glucose 130 H (74-99) mg/dL Calcium 9.4 (8.4-10.2) mg/dL AST 25 (17-59) U/L ALT 21 (4-49) U/L Alkaline Phosphatase 69 (38-126) U/L Total Protein 6.4 (6.3-8.2) g/dL Albumin 4.0 (3.5-5.0) g/dL Current Medications Generic Name Dose Route Start Last Admin Trade Name Freq PRN Reason Stop Dose Admin Aspirin 325 mg 06/18/22 09:00 Aspirin 325 Mg Tab PO DAILY [facility] Atorvastatin Calcium 10 mg 06/17/22 18:45 06/17/22 19:58 Atorvastatin 10 Mg Tab PO 10 mg DAILY [facility] Administration Dextrose/Water 25 ml 06/17/22 18:48 Dextrose 50% Syringe 50 Ml IVP PER PROTOCOL PRN Hypoglycemia Protocol Dextrose/Water 50 ml 06/17/22 18:48 Dextrose 50% Syringe 50 Ml IVP PER PROTOCOL PRN Hypoglycemia Protocol Famotidine 40 mg 06/17/22 21:00 06/17/22 19:55 Famotidine 20 Mg Tab PO 40 mg HS [facility] Administration Ferrous Sulfate 325 mg 06/17/22 18:45 06/17/22 19:58 Ferrous Sulfate 325 Mg Tab PO 325 mg DAILY [facility] Administration Furosemide 20 mg 06/17/22 21:00 06/17/22 19:55 Furosemide 10 Mg/Ml 2 Ml Vial IV 20 mg Q12HR [facility] Administration Glimepiride 2 mg 06/18/22 07:30 Glimepiride 2 Mg Tab PO W/BRKFST [facility] Heparin Sodium (Porcine) 5,000 unit 06/17/22 18:45 06/17/22 23:10 Heparin Sodium,Porcine/Pf 5,000 Unit/0.5 Ml Syringe SQ 5,000 unit Q8HR [facility] Administration Insulin Aspart 0 unit 06/18/22 07:30 Insulin Aspart (Novolog) 100 Unit/Ml Vial SQ AC-TID [facility] Protocol Lisinopril 40 mg 06/18/22 09:00 Lisinopril 20 Mg Tab PO DAILY [facility] Metoprolol Tartrate 50 mg 06/17/22 21:00 06/17/22 19:55 Metoprolol Tartrate 50 Mg Tab PO 50 mg BID [facility] Administration Intake and Output 06/17/22 06/18/22 06/18/22 22:59 06:59 14:59 Intake Total 620 220 Output Total 875 1150 Balance -255 -930 Intake: Intake, IV Titration 300 100 Amount Magnesium Sulfate-D5w Pmx 300 100 1 gm In Dextrose/Water 1 100ml.bag @ 100 mls/hr IVPB Q1H [facility] Rx#: [id number] Oral 320 120 Output: Urine 875 1150 Other: Weight 108.862 kg 176 kg 06/17/22 12:52 06/17/22 12:52
[2022-06-18 11:21] LABS: Glucose,Whole Blood 152 mg/dL (70-110)
[2022-06-18 13:31] LABS: Basophils # (A) 0.07 X 10*3/uL (0.00-0.10); Basophils % (A) 0.6 %; Eosinophils # (A) 0.33 X 10*3/uL (0.04-0.35); Eosinophils % (A) 2.9 %; HGB 9.9 g/dL (13.0-17.0); Immature Grans, Automated 0.5 %; Lymphocytes # (A) 1.09 X 10*3/uL (0.90-5.00); Lymphocytes % (A) 9.5 %; MCH 28.7 pg (27.0-32.0); Mean Platelet Volume 10.8 fL (9.5-12.2); Monocytes # (A) 1.14 X 10*3/uL (0.20-1.00); NRBC Per 100 WBC 0 /100 WBCS (0.0-0.0); Neutrophils # (A) 8.74 X 10*3/uL (1.80-7.70); Neutrophils % (A) 76.5 %; Platelet Count 215 X 10*3/uL (140-440); RBC 3.45 X 10*6/uL (4.40-5.60); RDW 13.7 % (11.5-14.5); WBC 11.43 X 10*3/uL (4.50-10.00)
--- NOTE | 2022-06-18 15:25 | CA ---
Transthoracic Echo Report Name: Gopi York Age: 62 Gender: M : 1960 Exam Date: 06/18/2022 13:53 Exam Location: [place] [facility] Ht (in): 64 Wt (lb): 388 Ordering Physician: Cayden Novoa Attending/Referring Phys: [id number], Bright [employer]ing Cutter Honey Patel, RDCS Procedure CPT: Indications: Pulmonary edema, dyspnea Cardiac Hx: Technical Quality: Fair Contrast 1: Total Dose (mL): Contrast 2: Total Dose (mL): MEASUREMENTS (Male / Female) Normal Values 2D ECHO LV Diastolic Diameter PLAX 4.3 cm 4.2 - 5.9 / 3.9 - 5.3 cm LV Systolic Diameter PLAX 3.2 cm IVS Diastolic Thickness 1.3 cm 0.6 - 1.0 / 0.6 - 0.9 cm LVPW Diastolic Thickness 1.9 cm 0.6 - 1.0 / 0.6 - 0.9 cm LV Relative Wall Thickness 0.8 RV Internal Dim ED PLAX 3.8 cm M-MODE Aortic Root Diameter MM 3.3 cm DOPPLER MV Area PHT 3.8 cm??? Mitral E Point Velocity 80.4 cm/s Mitral A Point Velocity 77.3 cm/s Mitral E to A Ratio 1.0 MV Deceleration Time 197.4 ms FINDINGS Left Ventricle Left ventricular ejection fraction is estimated at 50-55%. Mildly increased left ventricular wall thickness. Right Ventricle Mild right ventricular dilatation. Right Atrium Normal right atrial size. Left Atrium Normal left atrial size. Mitral Valve Structurally normal mitral valve. Mild mitral regurgitation. Aortic Valve Trileaflet aortic valve. Tricuspid Valve Structurally normal tricuspid valve. Mild tricuspid regurgitation. Pulmonic Valve Structurally normal pulmonic valve. Pericardium Normal pericardium. Aorta Normal size aortic root and proximal ascending aorta. CONCLUSIONS Normal LV systolic function Mild mitral regurgitation Previewed by: Dr. Gabriel Boalnd MD (Electronically Signed) Final Date: 18 June 2022 15:24
--- NOTE | 2022-06-18 16:13 | NM ---
EXAMINATION TYPE: NM pul vent and perfuse DATE OF EXAM: 06/18/2022 COMPARISON: NONE HISTORY: Shortness of breath TECHNIQUE: Utilizing inhalation of 62.6 mCi Tc 99m DTPA aerosol and intravenous injection of 4.5 mCi of Tc 99m MAA, ventilation and perfusion images are acquired post injection in multiple projections. FINDINGS: A couple of a small matched defects noted right lower lobe. No pulmonary perfusion ventilation mismat ch seen. IMPRESSION: Low probability for pulmonary embolism.
[2022-06-18 16:30] LABS: Glucose,Whole Blood 181 mg/dL (70-110)
[2022-06-18 16:31] LABS: % Iron Saturation 6.21 (15.00-50.00); Iron 24 ug/dL (65-175); LDL Cholesterol,Calculated 60.5 mg/dL (0.0-131.0); Total Iron Binding Capacity 385 ug/dL (228-460); VLDL Calculation 18.04 mg/dL (5.00-40.00)
--- NOTE | 2022-06-18 16:44 | P.PN ---
Subjective Progress Note Date: 06/18/22 Principal diagnosis: Patient seen and examined at bedside patient denies chest pain. Patient does have exertional dyspnea. Lower extremity edema is persistent. VQ scan was low probability for PE lower extremity Dopplers were negative for DVT. Echo revealed a preserved EF. Objective - Vital Signs Vital signs: Vital Signs Temp 98.6 F 06/18/22 07:43 Pulse 96 06/18/22 07:43 Resp 17 06/18/22 07:43 BP 155/53 06/18/22 07:43 Pulse Ox 98 06/18/22 07:43 FiO2 Intake & Output 06/17/22 06/18/22 06/18/22 18:59 06:59 18:59 Intake Total 840 Output Total 2024 Balance -1185 -700 Weight 108.862 kg 176 kg 176 kg Intake: Intake, IV Titration 400 Amount Magnesium Sulfate-D5w Pmx 400 1 gm In Dextrose/Water 1 100ml.bag @ 100 mls/hr IVPB Q1H [facility] Rx#: [id number] Oral 440 Output: Urine 2024 Other: # Voids 2 # Bowel Movements 0 - Exam General: [non toxic], [no distress], [appears at stated age] Derm: [warm], [dry] Head: [atraumatic], [normocephalic], [symmetric] Eyes: [EOMI], [no lid lag], [anicteric sclera] Mouth: [no lip lesion], [mucus membranes moist] Cardiovascular: [S1S2 reg], [no murmur], [positive posterior tibial pulse bilateral], Lungs: [CTA bilateral], [no rhonchi, no rales] , [no accessory muscle use] Abdominal: [soft], [ nontender to palpation], [no guarding], [no appreciable organomegaly] Ext: [no gross muscle atrophy], [S2 bilateral lower extremity edema], [no contractures] Neuro: [ CN II-XI grossly intact], [no focal neuro deficits] Psych: [Alert], [oriented], [appropriate affect] - Labs CBC & Chem 7: 06/18/22 07:29 06/18/22 07:29 Labs: Abnormal Lab Results - Last 24 Hours (Table) 06/17/22 06/17/22 06/18/22 Range/Units 19:11 19:11 00:03 WBC (4.50-10.00) X 10*3/uL RBC (4.40-5.60) X 10*6/uL Hgb (13.0-17.0) g/dL Hct (39.6-50.0) % Immature Gran # (0.00-0.04) X 10*3/uL Neutrophils # (1.80-7.70) X 10*3/uL Monocytes # (0.20-1.00) X 10*3/uL D-Dimer 2.02 H (<0.60) mg/L FEU Sodium (137-145) mmol/L Chloride (98-107) mmol/L BUN (9-20) mg/dL Creatinine (0.66-1.25) mg/dL Glucose (74-99) mg/dL POC Glucose (mg/dL) 173 H (70-110) mg/dL Hemoglobin A1c 8.6 H (0.0-6.0) % Iron (65-175) ug/dL % Saturation (15.00-50.00) HDL Cholesterol (40.00-60.00) mg/dL 06/18/22 06/18/22 06/18/22 Range/Units 06:13 07:29 07:29 WBC 11.43 H (4.50-10.00) X 10*3/uL RBC 3.45 L (4.40-5.60) X 10*6/uL Hgb 9.9 L (13.0-17.0) g/dL Hct 30.0 L (39.6-50.0) % Immature Gran # 0.06 H (0.00-0.04) X 10*3/uL Neutrophils # 8.74 H (1.80-7.70) X 10*3/uL Monocytes # 1.14 H (0.20-1.00) X 10*3/uL D-Dimer (<0.60) mg/L FEU Sodium (137-145) mmol/L Chloride (98-107) mmol/L BUN (9-20) mg/dL Creatinine (0.66-1.25) mg/dL Glucose (74-99) mg/dL POC Glucose (mg/dL) 159 H (70-110) mg/dL Hemoglobin A1c 8.3 H (0.0-6.0) % Iron (65-175) ug/dL % Saturation (15.00-50.00) HDL Cholesterol (40.00-60.00) mg/dL 06/18/22 06/18/22 06/18/22 Range/Units 07:29 11:19 16:29 WBC (4.50-10.00) X 10*3/uL RBC (4.40-5.60) X 10*6/uL Hgb (13.0-17.0) g/dL Hct (39.6-50.0) % Immature Gran # (0.00-0.04) X 10*3/uL Neutrophils # (1.80-7.70) X 10*3/uL Monocytes # (0.20-1.00) X 10*3/uL D-Dimer (<0.60) mg/L FEU Sodium 131 L (137-145) mmol/L Chloride 94 L (98-107) mmol/L BUN 24 H (9-20) mg/dL Creatinine 1.57 H (0.66-1.25) mg/dL Glucose 177 H (74-99) mg/dL POC Glucose (mg/dL) 152 H 181 H (70-110) mg/dL Hemoglobin A1c (0.0-6.0) % Iron 24 L (65-175) ug/dL % Saturation 6.21 L (15.00-50.00) HDL Cholesterol 60.50 H (40.00-60.00) mg/dL Assessment and Plan Assessment: 1. Exertional dyspnea with bilateral lower extremity edema likely due to acute exacerbation of diastolic CHF Echo reveals preserved EF of 50-55% Cardiology recommendations appreciated Telemetry IV diuresis Strict I's and O's 2. CKD creatinine today is 1.36 average is 1.5 Monitor BUN and creatinine 3. Normocytic anemia ferrous sulfate BID 4. History of hypertension Continue beta carrie ACEI calcium channel carrie and Lasix Monitor vitals 5. History of hyperlipidemia Restart statin and aspirin 6. History of diabetes mellitus type 2 [id number] Restart home medication Amaryl hold metformin Insulin sliding scale 7. Hypomagnesemia replaced Magnesium sulfate ordered 8. GI DVT prophylaxis 9. A.m. labs Disposition home with home care Anticipated length of stay is greater than 2 midnight days Patient is a full code
[2022-06-18] MEDS: FAMOTIDINE 20 MG TAB PO SCH (19:50)
[2022-06-18 20:26] LABS: Glucose,Whole Blood 182 mg/dL (70-110)
[2022-06-18 23:58] LABS: Glucose,Whole Blood 154 mg/dL (70-110)
[2022-06-19] MEDS: HEPARIN SODIUM,PORCINE/PF 5,000 UNIT/0.5 ML SYRINGE SQ SCH ×3 (00:16→14:37)
[2022-06-19 06:13] LABS: Glucose,Whole Blood 145 mg/dL (70-110)
[2022-06-19 06:59] LABS: Glucose,Whole Blood 148 mg/dL (70-110)
[2022-06-19] MEDS: INSULIN ASPART (NovoLOG) 100 UNIT/ML VIAL SQ SCH ×3 (07:37→17:10)
[2022-06-19] MEDS: lisinopriL 20 MG TAB PO SCH (07:42)
[2022-06-19] MEDS: GLIMEPIRIDE 2 MG TAB PO SCH (07:42)
[2022-06-19] MEDS: METOPROLOL TARTRATE 50 MG TAB PO SCH ×2 (07:42→20:22)
[2022-06-19] MEDS: ASPIRIN 81 MG PO SCH (07:42)
[2022-06-19] MEDS: FERROUS SULFATE 325 MG TAB PO SCH (07:42)
[2022-06-19] MEDS: amLODIPine 5 MG TAB PO SCH (07:42)
[2022-06-19] MEDS: ATORVASTATIN 10 MG TAB PO SCH (07:42)
[2022-06-19] MEDS: FUROSEMIDE 10 MG/ML 2 ML VIAL IV SCH (07:43)
[2022-06-19 12:06] LABS: Glucose,Whole Blood 208 mg/dL (70-110)
[2022-06-19 12:09] LABS: Basophils # (A) 0.08 X 10*3/uL (0.00-0.10); Basophils % (A) 0.8 %; Eosinophils # (A) 0.23 X 10*3/uL (0.04-0.35); Eosinophils % (A) 2.3 %; HCT 29.3 % (39.6-50.0); HGB 9.9 g/dL (13.0-17.0); Immature Grans, Automated 0.5 %; Lymphocytes % (A) 11.9 %; MCH 28.8 pg (27.0-32.0); MCHC 33.8 g/dL (32.0-37.0); MCV 85.2 fL (80.0-97.0); Mean Platelet Volume 10.2 fL (9.5-12.2); Monocytes # (A) 0.95 X 10*3/uL (0.20-1.00); Monocytes % (A) 9.4 %; NRBC Per 100 WBC 0 /100 WBCS (0.0-0.0); Neutrophils # (A) 7.56 X 10*3/uL (1.80-7.70); Neutrophils % (A) 75.1 %; Platelet Count 277 X 10*3/uL (140-440); RBC 3.44 X 10*6/uL (4.40-5.60); RDW 13.4 % (11.5-14.5); WBC 10.07 X 10*3/uL (4.50-10.00)
[2022-06-19 12:13] LABS: African American GFR (CKD) 52.4 (60.0-200.0); Albumin 3.8 g/dL (3.8-4.9); Albumin/Globulin Ratio 1.58 (1.60-3.17); Anion Gap 13.8 mmol/L (10.00-18.00); BUN/Creat Ratio 17.75 Ratio (12.00-20.00); Blood Urea Nitrogen 28.4 mg/dL (9.0-27.0); Calcium 9.3 mg/dL (8.7-10.3); Carbon Dioxide 24.2 mmol/L (20.0-27.5); Globulin 2.4 g/dL (1.6-3.3); Non-African American GFR(CKD) 45.2 (60.0-200.0); Potassium 4.8 mmol/L (3.5-5.5); Total Bilirubin 0.3 mg/dL (0.30-1.20); Total Protein 6.2 g/dL (6.2-8.2)
--- NOTE | 2022-06-19 13:05 | P.PN ---
Subjective Progress Note Date: 06/19/22 The patient was seen at bedside, no acute events overnight. Reports that his breathing is overall getting better. Objective - Vital Signs Vital signs: Vital Signs Temp 97.8 F 06/19/22 07:33 Pulse 68 06/19/22 07:33 Resp 17 06/19/22 07:45 BP 150/79 06/19/22 07:33 Pulse Ox 91 L 06/19/22 09:52 FiO2 Intake & Output 06/18/22 06/19/22 06/19/22 18:59 06:59 18:59 Intake Total 240 Output Total 700 1350 300 Balance -700 -1110 -300 Weight 106 kg 187 kg Intake: Oral 240 Output: Urine 700 1350 300 Other: # Voids 2 # Bowel Movements 0 - Exam General: [non toxic], [no distress], [appears at stated age] Derm: [warm], [dry] Head: [atraumatic], [normocephalic], [symmetric] Eyes: [EOMI], [no lid lag], [anicteric sclera] Mouth: [no lip lesion], [mucus membranes moist] Cardiovascular: [S1S2 reg], [no murmur], [positive posterior tibial pulse bilateral], Lungs: [CTA bilateral], [no rhonchi, no rales] , [no accessory muscle use] Abdominal: [soft], [ nontender to palpation], [no guarding], [no appreciable organomegaly] Ext: [no gross muscle atrophy], [S2 bilateral lower extremity edema], [no contractures] Neuro: [ CN II-XI grossly intact], [no focal neuro deficits] Psych: [Alert], [oriented], [appropriate affect] - Labs CBC & Chem 7: 06/19/22 07:40 06/19/22 07:44 Labs: Abnormal Lab Results - Last 24 Hours (Table) 06/18/22 06/18/22 06/18/22 Range/Units 07:29 07:29 07:29 WBC 11.43 H (4.50-10.00) X 10*3/uL RBC 3.45 L (4.40-5.60) X 10*6/uL Hgb 9.9 L (13.0-17.0) g/dL Hct 30.0 L (39.6-50.0) % Immature Gran # 0.06 H (0.00-0.04) X 10*3/uL Neutrophils # 8.74 H (1.80-7.70) X 10*3/uL Monocytes # 1.14 H (0.20-1.00) X 10*3/uL Sodium (135-145) mmol/L Chloride (96-109) mmol/L BUN (9.0-27.0) mg/dL Creatinine (0.6-1.5) mg/dL Est GFR (CKD-EPI)AfAm (60.0-200.0) Est GFR (CKD-EPI)NonAf (60.0-200.0) Glucose (70-110) mg/dL POC Glucose (mg/dL) (70-110) mg/dL Hemoglobin A1c 8.3 H (0.0-6.0) % Iron 24 L (65-175) ug/dL % Saturation 6.21 L (15.00-50.00) Albumin/Globulin Ratio (1.60-3.17) g/dL HDL Cholesterol 60.50 H (40.00-60.00) mg/dL Vitamin D 25-Hydroxy 23.8 L (30.0-100.0) ng/mL 06/18/22 06/18/22 06/18/22 Range/Units 16:29 20:19 23:56 WBC (4.50-10.00) X 10*3/uL RBC (4.40-5.60) X 10*6/uL Hgb (13.0-17.0) g/dL Hct (39.6-50.0) % Immature Gran # (0.00-0.04) X 10*3/uL Neutrophils # (1.80-7.70) X 10*3/uL Monocytes # (0.20-1.00) X 10*3/uL Sodium (135-145) mmol/L Chloride (96-109) mmol/L BUN (9.0-27.0) mg/dL Creatinine (0.6-1.5) mg/dL Est GFR (CKD-EPI)AfAm (60.0-200.0) Est GFR (CKD-EPI)NonAf (60.0-200.0) Glucose (70-110) mg/dL POC Glucose (mg/dL) 181 H 182 H 154 H (70-110) mg/dL Hemoglobin A1c (0.0-6.0) % Iron (65-175) ug/dL % Saturation (15.00-50.00) Albumin/Globulin Ratio (1.60-3.17) g/dL HDL Cholesterol (40.00-60.00) mg/dL Vitamin D 25-Hydroxy (30.0-100.0) ng/mL 06/19/22 06/19/22 06/19/22 Range/Units 06:11 06:57 07:40 WBC 10.07 H (4.50-10.00) X 10*3/uL RBC 3.44 L (4.40-5.60) X 10*6/uL Hgb 9.9 L (13.0-17.0) g/dL Hct 29.3 L (39.6-50.0) % Immature Gran # 0.05 H (0.00-0.04) X 10*3/uL Neutrophils # (1.80-7.70) X 10*3/uL Monocytes # (0.20-1.00) X 10*3/uL Sodium (135-145) mmol/L Chloride (96-109) mmol/L BUN (9.0-27.0) mg/dL Creatinine (0.6-1.5) mg/dL Est GFR (CKD-EPI)AfAm (60.0-200.0) Est GFR (CKD-EPI)NonAf (60.0-200.0) Glucose (70-110) mg/dL POC Glucose (mg/dL) 145 H 148 H (70-110) mg/dL Hemoglobin A1c (0.0-6.0) % Iron (65-175) ug/dL % Saturation (15.00-50.00) Albumin/Globulin Ratio (1.60-3.17) g/dL HDL Cholesterol (40.00-60.00) mg/dL Vitamin D 25-Hydroxy (30.0-100.0) ng/mL 06/19/22 06/19/22 Range/Units 07:44 12:04 WBC (4.50-10.00) X 10*3/uL RBC (4.40-5.60) X 10*6/uL Hgb (13.0-17.0) g/dL Hct (39.6-50.0) % Immature Gran # (0.00-0.04) X 10*3/uL Neutrophils # (1.80-7.70) X 10*3/uL Monocytes # (0.20-1.00) X 10*3/uL Sodium 133 L (135-145) mmol/L Chloride 95 L (96-109) mmol/L BUN 28.4 H (9.0-27.0) mg/dL Creatinine 1.6 H (0.6-1.5) mg/dL Est GFR (CKD-EPI)AfAm 52.4 L (60.0-200.0) Est GFR (CKD-EPI)NonAf 45.2 L (60.0-200.0) Glucose 161 H (70-110) mg/dL POC Glucose (mg/dL) 208 H (70-110) mg/dL Hemoglobin A1c (0.0-6.0) % Iron (65-175) ug/dL % Saturation (15.00-50.00) Albumin/Globulin Ratio 1.58 L (1.60-3.17) g/dL HDL Cholesterol (40.00-60.00) mg/dL Vitamin D 25-Hydroxy (30.0-100.0) ng/mL Assessment and Plan Assessment: 1. Exertional dyspnea with bilateral lower extremity edema likely due to acute exacerbation of diastolic CHF Echo reveals preserved EF of 50-55% Cardiology recommendations appreciated Telemetry IV diuresis Strict I's and O's 2. CKD creatinine today is 1.36 average is 1.5 Monitor BUN and creatinine 3. Normocytic anemia ferrous sulfate BID 4. History of hypertension Continue beta carrie ACEI calcium channel carrie and Lasix Monitor vitals 5. History of hyperlipidemia Restart statin and aspirin 6. History of diabetes mellitus type 2 [id number] Restart home medication Amaryl hold metformin Insulin sliding scale 7. Hypomagnesemia replaced Magnesium sulfate ordered 8. GI DVT prophylaxis 9. A.m. labs Disposition home with home care Anticipated length of stay is greater than 2 midnight days Patient is a full code
[2022-06-19] MEDS: ISOSORBIDE MONONITRATE ER 30 MG TAB.ER.24H PO SCH (14:37)
--- NOTE | 2022-06-19 14:45 | P.PN ---
Subjective This is a pleasant 62-year-old male past medical history significant for type 2 diabetes, hypertension, dyslipidemia, chronic kidney disease. 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 He is unsure who was PCP is, currently goes to [facility]. We have been asked to see in consultation for congestive heart failure. Patient presents to the emergency room with worsening shortness of breath, dyspnea on exertion, bilateral lower extremity edema, symptoms of orthopnea and weight gain. He also noticed walking up the stairs is more difficult and has increased shortness of breath. Patient initially presented to [facility] and patient was recommended to go to the emergency department. He denies any history of CAD, [place], stroke. He does endorse someone telling him that he had kidney problems. Family history includes father had an ND. He denies any alcohol, tobacco or illicit drug use. He denies any chest pain, lightheadedness, dizziness, syncope or near syncope, palpitations. On admission patient's blood pressure was elevated 180s/90s. Chest xray was concerning for fluid overload. Patient was started on IV Lasix. Patient with documented 2L urine output. DIAGNOSTICS * EKG reveals sinus rhythm, rate 84, slow R wave progression, no acute STT wave abnormalities suggest ischemia * Chest xray cardiomegaly, pulmonary vascular congestion. * Echocardiogram revealed EF 50-55% with mild MR, mild TR and mild RV dilatation * Labs showed a BNP of 771 and an overweight patient 06/19/2022 Patient was seen and examined lying flat in bed. Labs today show worsening renal function. He is currently on Lasix IV push 20 mg every 12 hours. He overall feels his breathing is better. He feels his edema has improved. Blood pressure is elevated. Objective - Vital Signs Vital signs: Vital Signs Temp 97.8 F 06/19/22 07:33 Pulse 68 06/19/22 07:33 Resp 17 06/19/22 07:45 BP 150/79 06/19/22 07:33 Pulse Ox 91 L 06/19/22 09:52 FiO2 Intake & Output 06/18/22 06/19/22 06/19/22 18:59 06:59 18:59 Intake Total 240 Output Total 700 1350 300 Balance -700 -1110 -300 Weight 106 kg 187 kg Intake: Oral 240 Output: Urine 700 1350 300 Other: # Voids 2 # Bowel Movements 0 - Exam CONSTITUTIONAL: No apparent distress. HEENT: Head is normocephalic. Pupils are equal, round. Sclerae anicteric. Mucous membranes of the mouth are moist. +JVD. No carotid bruit. CHEST EXAMINATION: Lungs are clear to auscultation. No chest wall tenderness is noted on palpation or with deep breathing. HEART EXAMINATION: Regular rate and rhythm. S1, S2 heard. No murmurs, gallops or rub. ABDOMEN: Distended, positive bowel sounds EXTREMITIES: 2+ peripheral pulses, 1+ bilateral lower extremity edema and no calf tenderness. NEUROLOGIC EXAMINATION: Patient is awake, alert and oriented x3. - Labs CBC & Chem 7: 06/19/22 07:40 06/19/22 07:44 Labs: Abnormal Lab Results - Last 24 Hours (Table) 06/18/22 06/18/22 06/18/22 Range/Units 07:29 16:29 20:19 WBC (4.50-10.00) X 10*3/uL RBC (4.40-5.60) X 10*6/uL Hgb (13.0-17.0) g/dL Hct (39.6-50.0) % Immature Gran # (0.00-0.04) X 10*3/uL Sodium (135-145) mmol/L Chloride (96-109) mmol/L BUN (9.0-27.0) mg/dL Creatinine (0.6-1.5) mg/dL Est GFR (CKD-EPI)AfAm (60.0-200.0) Est GFR (CKD-EPI)NonAf (60.0-200.0) Glucose (70-110) mg/dL POC Glucose (mg/dL) 181 H 182 H (70-110) mg/dL Iron 24 L (65-175) ug/dL % Saturation 6.21 L (15.00-50.00) Albumin/Globulin Ratio (1.60-3.17) g/dL HDL Cholesterol 60.50 H (40.00-60.00) mg/dL Vitamin D 25-Hydroxy 23.8 L (30.0-100.0) ng/mL 06/18/22 06/19/22 06/19/22 Range/Units 23:56 06:11 06:57 WBC (4.50-10.00) X 10*3/uL RBC (4.40-5.60) X 10*6/uL Hgb (13.0-17.0) g/dL Hct (39.6-50.0) % Immature Gran # (0.00-0.04) X 10*3/uL Sodium (135-145) mmol/L Chloride (96-109) mmol/L BUN (9.0-27.0) mg/dL Creatinine (0.6-1.5) mg/dL Est GFR (CKD-EPI)AfAm (60.0-200.0) Est GFR (CKD-EPI)NonAf (60.0-200.0) Glucose (70-110) mg/dL POC Glucose (mg/dL) 154 H 145 H 148 H (70-110) mg/dL Iron (65-175) ug/dL % Saturation (15.00-50.00) Albumin/Globulin Ratio (1.60-3.17) g/dL HDL Cholesterol (40.00-60.00) mg/dL Vitamin D 25-Hydroxy (30.0-100.0) ng/mL 06/19/22 06/19/22 06/19/22 Range/Units 07:40 07:44 12:04 WBC 10.07 H (4.50-10.00) X 10*3/uL RBC 3.44 L (4.40-5.60) X 10*6/uL Hgb 9.9 L (13.0-17.0) g/dL Hct 29.3 L (39.6-50.0) % Immature Gran # 0.05 H (0.00-0.04) X 10*3/uL Sodium 133 L (135-145) mmol/L Chloride 95 L (96-109) mmol/L BUN 28.4 H (9.0-27.0) mg/dL Creatinine 1.6 H (0.6-1.5) mg/dL Est GFR (CKD-EPI)AfAm 52.4 L (60.0-200.0) Est GFR (CKD-EPI)NonAf 45.2 L (60.0-200.0) Glucose 161 H (70-110) mg/dL POC Glucose (mg/dL) 208 H (70-110) mg/dL Iron (65-175) ug/dL % Saturation (15.00-50.00) Albumin/Globulin Ratio 1.58 L (1.60-3.17) g/dL HDL Cholesterol (40.00-60.00) mg/dL Vitamin D 25-Hydroxy (30.0-100.0) ng/mL Assessment and Plan Assessment: New onset acute heart failure exacerbation with preserved ejection fraction Type 2 diabetes Chronic kidney disease, stage III Hypertension Dyslipidemia Plan: From cardiology perspective we will switch the patient to by mouth Lasix. We will add hydralazine and oral nitrate. Consider addition of SGLT2 inhibitor dep ending on renal function. We will continue to follow the patient provide further recommendations accordingly. MOTOR ASSEMBLER note has been reviewed, I agree with a documented findings and plan of care. Patient was seen and examined.
[2022-06-19 16:45] LABS: Glucose,Whole Blood 165 mg/dL (70-110)
[2022-06-19] MEDS: FUROSEMIDE 20 MG TAB PO SCH (17:10)
[2022-06-19 19:44] LABS: Glucose,Whole Blood 182 mg/dL (70-110)
[2022-06-19] MEDS: hydrALAZINE HCL 25 MG TAB PO SCH (20:22)
[2022-06-19] MEDS: FAMOTIDINE 20 MG TAB PO SCH (20:22)
[2022-06-20] MEDS: HEPARIN SODIUM,PORCINE/PF 5,000 UNIT/0.5 ML SYRINGE SQ SCH ×4 (02:08→23:36)
[2022-06-20 07:02] LABS: African American GFR (CKD) 58 (>60 ml/min/1.73 sqM); Anion Gap 12 mmol/L; Blood Urea Nitrogen 31 mg/dL (9-20); Calcium 9.2 mg/dL (8.4-10.2); Carbon Dioxide 27 mmol/L (22-30); Chloride 92 mmol/L (98-107); Glucose 114 mg/dL (74-99); Magnesium 1.6 mg/dL (1.6-2.3); Non-African American GFR(CKD) 50 (>60 ml/min/1.73 sqM); Phosphorus 4.5 mg/dL (2.5-4.5); Potassium 4.6 mmol/L (3.5-5.1); Sodium 131 mmol/L (137-145)
[2022-06-20 07:12] LABS: Glucose,Whole Blood 126 mg/dL (70-110)
[2022-06-20] MEDS: INSULIN ASPART (NovoLOG) 100 UNIT/ML VIAL SQ SCH ×3 (07:59→16:49)
[2022-06-20] MEDS: ASPIRIN 81 MG PO SCH (08:03)
[2022-06-20] MEDS: METOPROLOL TARTRATE 50 MG TAB PO SCH ×2 (08:04→20:24)
[2022-06-20] MEDS: GLIMEPIRIDE 2 MG TAB PO SCH (08:04)
[2022-06-20] MEDS: FUROSEMIDE 20 MG TAB PO SCH ×2 (08:04→16:48)
[2022-06-20] MEDS: ATORVASTATIN 10 MG TAB PO SCH (08:04)
[2022-06-20] MEDS: hydrALAZINE HCL 25 MG TAB PO SCH (08:04)
[2022-06-20] MEDS: amLODIPine 5 MG TAB PO SCH (08:04)
[2022-06-20] MEDS: ISOSORBIDE MONONITRATE ER 30 MG TAB.ER.24H PO SCH (08:04)
[2022-06-20] MEDS: FERROUS SULFATE 325 MG TAB PO SCH (08:04)
[2022-06-20] MEDS: lisinopriL 20 MG TAB PO SCH (08:04)
[2022-06-20 10:19] LABS: Basophils # (A) 0.08 X 10*3/uL (0.00-0.10); Basophils % (A) 0.9 %; Eosinophils # (A) 0.26 X 10*3/uL (0.04-0.35); Eosinophils % (A) 2.8 %; HCT 30.1 % (39.6-50.0); HGB 10.1 g/dL (13.0-17.0); Immature Grans, Automated 0.4 %; Lymphocytes % (A) 16.1 %; MCH 28.5 pg (27.0-32.0); MCHC 33.6 g/dL (32.0-37.0); MCV 84.8 fL (80.0-97.0); Mean Platelet Volume 10.3 fL (9.5-12.2); Monocytes # (A) 0.86 X 10*3/uL (0.20-1.00); Monocytes % (A) 9.2 %; NRBC Per 100 WBC 0 /100 WBCS (0.0-0.0); Neutrophils # (A) 6.59 X 10*3/uL (1.80-7.70); Neutrophils % (A) 70.6 %; Platelet Count 314 X 10*3/uL (140-440); RBC 3.55 X 10*6/uL (4.40-5.60); RDW 13.3 % (11.5-14.5); WBC 9.33 X 10*3/uL (4.50-10.00)
[2022-06-20 11:10] LABS: Glucose,Whole Blood 175 mg/dL (70-110)
--- NOTE | 2022-06-20 11:56 | P.PN ---
Subjective Progress Note Date: 06/20/22 This is a pleasant 62-year-old male past medical history significant for type 2 diabetes, hypertension, dyslipidemia, chronic kidney disease. 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 He is unsure who was PCP is, currently goes to [facility]. We have been asked to see in consultation for congestive heart failure. Patient presents to the emergency room with worsening shortness of breath, dyspnea on exertion, bilateral lower extremity edema, symptoms of orthopnea and weight gain. He also noticed walking up the stairs is more difficult and has increased shortness of breath. Patient initially presented to [facility] and patient was recommended to go to the emergency department. He denies any history of CAD, [place], stroke. He does endorse someone telling him that he had kidney problems. Family history includes father had an [place]. He denies any alcohol, tobacco or illicit drug use. He denies any chest pain, lightheadedness, dizziness, syncope or near syncope, palpitations. On admission patient's blood pressure was elevated 180s/90s. Chest xray was concerning for fluid overload. Patient was started on IV Lasix. Patient with documented 2L urine output. DIAGNOSTICS * EKG reveals sinus rhythm, rate 84, slow R wave progression, no acute STT wave abnormalities suggest ischemia * Chest xray cardiomegaly, pulmonary vascular congestion. * Echocardiogram revealed EF 50-55% with mild MR, mild TR and mild RV dilatation * Labs showed a BNP of 771 and an overweight patient 06/19/2022 Patient was seen and examined lying flat in bed. Labs today show worsening renal function. He is currently on Lasix IV push 20 mg every 12 hours. He overall feels his breathing is better. He feels his edema has improved. Blood pressure is elevated. 06/20/2022 The patient was seen and examined this morning resting comfortably in bed. He feels his breathing is stable. He has no orthopnea, PND, edema is minimal. Denies chest pain, palpitations or dizziness. Blood pressure remains elevated. Renal function is somewhat improved. Objective - Vital Signs Vital signs: Vital Signs Temp 97.9 F 06/20/22 07:29 Pulse 66 06/20/22 07:29 Resp 17 06/20/22 07:45 BP 188/67 06/20/22 07:29 Pulse Ox 91 L 06/20/22 07:29 FiO2 Intake & Output 06/19/22 06/20/22 06/20/22 18:59 06:59 18:59 Output Total 300 300 Balance -300 -300 Output: Urine 300 300 Other: Voiding Method Toilet Toilet Urinal Urinal - Exam CONSTITUTIONAL: No apparent distress. HEENT: Head is normocephalic. Pupils are equal, round. Sclerae anicteric. Mucous membranes of the mouth are moist. No JVD. No carotid bruit. CHEST EXAMINATION: Lungs are clear to auscultation. No chest wall tenderness is noted on palpation or with deep breathing. HEART EXAMINATION: Regular rate and rhythm. S1, S2 heard. No murmurs, gallops or rub. ABDOMEN: Distended, positive bowel sounds EXTREMITIES: 2+ peripheral pulses, trace bilateral lower extremity edema and no calf tenderness. NEUROLOGIC EXAMINATION: Patient is awake, alert and oriented x3. - Labs CBC & Chem 7: 06/20/22 05:25 06/20/22 05:25 Labs: Abnormal Lab Results - Last 24 Hours (Table) 06/19/22 06/19/22 06/19/22 Range/Units 07:40 07:44 12:04 WBC 10.07 H (4.50-10.00) X 10*3/uL RBC 3.44 L (4.40-5.60) X 10*6/uL Hgb 9.9 L (13.0-17.0) g/dL Hct 29.3 L (39.6-50.0) % Immature Gran # 0.05 H (0.00-0.04) X 10*3/uL Sodium 133 L (135-145) mmol/L Chloride 95 L (96-109) mmol/L BUN 28.4 H (9.0-27.0) mg/dL Creatinine 1.6 H (0.6-1.5) mg/dL Est GFR (CKD-EPI)AfAm 52.4 L (60.0-200.0) Est GFR (CKD-EPI)NonAf 45.2 L (60.0-200.0) Glucose 161 H (70-110) mg/dL POC Glucose (mg/dL) 208 H (70-110) mg/dL Albumin/Globulin Ratio 1.58 L (1.60-3.17) g/dL 06/19/22 06/19/22 06/20/22 Range/Units 16:43 19:43 05:25 WBC (4.50-10.00) X 10*3/uL RBC (4.40-5.60) X 10*6/uL Hgb (13.0-17.0) g/dL Hct (39.6-50.0) % Immature Gran # (0.00-0.04) X 10*3/uL Sodium 131 L (135-145) mmol/L Chloride 92 L (96-109) mmol/L BUN 31 H (9.0-27.0) mg/dL Creatinine 1.47 H (0.6-1.5) mg/dL Est GFR (CKD-EPI)AfAm (60.0-200.0) Est GFR (CKD-EPI)NonAf (60.0-200.0) Glucose 114 H (70-110) mg/dL POC Glucose (mg/dL) 165 H 182 H (70-110) mg/dL Albumin/Globulin Ratio (1.60-3.17) g/dL 06/20/22 06/20/22 06/20/22 Range/Units 05:25 07:11 11:09 WBC (4.50-10.00) X 10*3/uL RBC 3.55 L (4.40-5.60) X 10*6/uL Hgb 10.1 L (13.0-17.0) g/dL Hct 30.1 L (39.6-50.0) % Immature Gran # (0.00-0.04) X 10*3/uL Sodium (135-145) mmol/L Chloride (96-109) mmol/L BUN (9.0-27.0) mg/dL Creatinine (0.6-1.5) mg/dL Est GFR (CKD-EPI)AfAm (60.0-200.0) Est GFR (CKD-EPI)NonAf (60.0-200.0) Glucose (70-110) mg/dL POC Glucose (mg/dL) 126 H 175 H (70-110) mg/dL Albumin/Globulin Ratio (1.60-3.17) g/dL Assessment and Plan Assessment: New onset acute heart failure exacerbation with preserved ejection fraction Type 2 diabetes Chronic kidney disease, stage III Hypertension Dyslipidemia Plan: From cardiology perspective blood pressure remains elevated. We will increase the hydralazine. Continue to monitor the renal function and electrolytes. Consider addition of SGLT2 inhibitor. We will continue to follow the patient provide further recommendations accordingly. INSPECTOR FLOOR SUB ASSEMBLY note has been reviewed, I agree with a documented findings and plan of care. Patient was seen and examined.
[2022-06-20] MEDS: hydrALAZINE HCL 50 MG TAB PO SCH ×2 (11:57→20:24)
--- NOTE | 2022-06-20 13:32 | P.PN ---
Subjective Progress Note Date: 06/20/22 The patient was seen at bedside, no acute events overnight. Reports that his breathing is overall getting better. Objective - Vital Signs Vital signs: Vital Signs Temp 97.9 F 06/20/22 07:29 Pulse 66 06/20/22 07:29 Resp 17 06/20/22 07:45 BP 188/67 06/20/22 07:29 Pulse Ox 91 L 06/20/22 07:29 FiO2 Intake & Output 06/19/22 06/20/22 06/20/22 18:59 06:59 18:59 Output Total 300 300 Balance -300 -300 Output: Urine 300 300 Other: Voiding Method Toilet Toilet Urinal Urinal - Exam General: [non toxic], [no distress], [appears at stated age] Derm: [warm], [dry] Head: [atraumatic], [normocephalic], [symmetric] Eyes: [EOMI], [no lid lag], [anicteric sclera] Mouth: [no lip lesion], [mucus membranes moist] Cardiovascular: [S1S2 reg], [no murmur], [positive posterior tibial pulse bilateral], Lungs: [CTA bilateral], [no rhonchi, no rales] , [no accessory muscle use] Abdominal: [soft], [ nontender to palpation], [no guarding], [no appreciable organomegaly] Ext: [no gross muscle atrophy], [S2 bilateral lower extremity edema], [no contractures] Neuro: [ CN II-XI grossly intact], [no focal neuro deficits] Psych: [Alert], [oriented], [appropriate affect] - Labs CBC & Chem 7: 06/20/22 05:25 06/20/22 05:25 Labs: Abnormal Lab Results - Last 24 Hours (Table) 06/19/22 06/19/22 06/20/22 Range/Units 16:43 19:43 05:25 RBC (4.40-5.60) X 10*6/uL Hgb (13.0-17.0) g/dL Hct (39.6-50.0) % Sodium 131 L (137-145) mmol/L Chloride 92 L (98-107) mmol/L BUN 31 H (9-20) mg/dL Creatinine 1.47 H (0.66-1.25) mg/dL Glucose 114 H (74-99) mg/dL POC Glucose (mg/dL) 165 H 182 H (70-110) mg/dL 06/20/22 06/20/22 06/20/22 Range/Units 05:25 07:11 11:09 RBC 3.55 L (4.40-5.60) X 10*6/uL Hgb 10.1 L (13.0-17.0) g/dL Hct 30.1 L (39.6-50.0) % Sodium (137-145) mmol/L Chloride (98-107) mmol/L BUN (9-20) mg/dL Creatinine (0.66-1.25) mg/dL Glucose (74-99) mg/dL POC Glucose (mg/dL) 126 H 175 H (70-110) mg/dL Assessment and Plan Assessment: 1. Exertional dyspnea with bilateral lower extremity edema likely due to acute exacerbation of diastolic CHF Echo reveals preserved EF of 50-55% Cardiology recommendations appreciated Telemetry Switch to IV to oral Lasix Per Cardiology Strict I's and O's 2. CKD creatinine today is 1.36 average is 1.5 Monitor BUN and creatinine 3. Normocytic anemia ferrous sulfate BID 4. History of hypertension Continue beta carrie ACEI calcium channel carrie and Lasix Monitor vitals 5. History of hyperlipidemia Restart statin and aspirin 6. History of diabetes mellitus type 2 [id number] Restart home medication Amaryl hold metformin Insulin sliding scale We'll consider adding SGLT2 inhibitor on discharge 7. Hypomagnesemia replaced Magnesium sulfate ordered 8. GI DVT prophylaxis 9. A.m. labs Disposition home with home care Anticipated length of stay is greater than 2 midnight days Patient is a full code
[2022-06-20 16:06] LABS: Glucose,Whole Blood 214 mg/dL (70-110)
[2022-06-20 20:15] LABS: Glucose,Whole Blood 128 mg/dL (70-110)
[2022-06-20] MEDS: FAMOTIDINE 20 MG TAB PO SCH (20:24)
[2022-06-21 06:54] LABS: Glucose,Whole Blood 114 mg/dL (70-110)
[2022-06-21] MEDS: INSULIN ASPART (NovoLOG) 100 UNIT/ML VIAL SQ SCH ×3 (07:50→17:47)
[2022-06-21] MEDS: FERROUS SULFATE 325 MG TAB PO SCH (09:14)
[2022-06-21] MEDS: HEPARIN SODIUM,PORCINE/PF 5,000 UNIT/0.5 ML SYRINGE SQ SCH ×2 (09:14→17:47)
[2022-06-21] MEDS: amLODIPine 5 MG TAB PO SCH (09:14)
[2022-06-21] MEDS: GLIMEPIRIDE 2 MG TAB PO SCH (09:14)
[2022-06-21] MEDS: hydrALAZINE HCL 50 MG TAB PO SCH ×2 (09:14→22:05)
[2022-06-21] MEDS: ATORVASTATIN 10 MG TAB PO SCH (09:14)
[2022-06-21] MEDS: METOPROLOL TARTRATE 50 MG TAB PO SCH (09:14)
[2022-06-21] MEDS: lisinopriL 20 MG TAB PO SCH (09:14)
[2022-06-21] MEDS: FUROSEMIDE 20 MG TAB PO SCH ×2 (09:14→17:47)
[2022-06-21] MEDS: ISOSORBIDE MONONITRATE ER 30 MG TAB.ER.24H PO SCH (09:15)
[2022-06-21] MEDS: ASPIRIN 81 MG PO SCH (09:15)
--- NOTE | 2022-06-21 09:49 | P.PN ---
Subjective Progress Note Date: 06/21/22 HISTORY OF PRESENT ILLNESS: This is a pleasant 62-year-old male past medical history significant for type 2 diabetes, hypertension, dyslipidemia, chronic kidney disease. 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 He is unsure who was PCP is, currently goes to [facility]. We have been asked to see in consultation for congestive heart failure. Patient presents to the emergency room with worsening shortness of breath, dyspnea on exertion, bilateral lower extremity edema, symptoms of orthopnea and weight gain. He also noticed walking up the stairs is more difficult and has increased shortness of breath. Patient initially presented [facility] and patient was recommended to go to the emergency department. He denies any history of CAD, [place], stroke. He does endorse someone telling him that he had kidney problems. Family history includes father had an [place]. He ethan es any alcohol, tobacco or illicit drug use. He denies any chest pain, lightheadedness, dizziness, syncope or near syncope, palpitations. On admission patient's blood pressure was elevated 180s/90s. Chest xray was concerning for fluid overload. Patient was started on IV Lasix. Patient with documented 2L urine output. DIAGNOSTICS * EKG reveals sinus rhythm, rate 84, slow R wave progression, no acute STT wave abnormalities suggest ischemia * Chest xray cardiomegaly, pulmonary vascular congestion. * Echocardiogram revealed EF 50-55% with mild MR, mild TR and mild RV dilatation * Labs showed a BNP of 771 and an overweight patient 06/19/2022 Patient was seen and examined lying flat in bed. Labs today show worsening renal function. He is currently on Lasix IV push 20 mg every 12 hours. He o verall feels his breathing is better. He feels his edema has improved. Blood pressure is elevated. 06/20/2022 The patient was seen and examined this morning resting comfortably in bed. He feels his breathing is stable. He has no orthopnea, PND, edema is minimal. Denies chest pain, palpitations or dizziness. Blood pressure remains elevated. Renal function is somewhat improved. 06/21/2022 Patient examined this morning at the bedside. Patient denies chest pain or pressure. Patient currently denies shortness of breath. He continues to have lower extremity edema. He remains on oral Lasix 20 mg twice a day. Lab work from this morning is currently pending. Patient's blood pressure has improved today with a systolic in the 150s, down from the 180s yesterday. His hydr alazine was increased yesterday. PHYSICAL EXAM: VITAL SIGNS: Reviewed. GENERAL: Well-developed in no acute distress. NECK: Supple. No JVD or thyromegaly LUNGS: Respirations even and unlabored. Lungs essentially clear to auscultation bilaterally. HEART: Regular rate and rhythm. S1 and S2 heard. EXTREMITIES: Normal range of motion. No clubbing or cyanosis. Peripheral pulse s intact. 2+ bilateral lower extremity edema ASSESSMENT: New onset acute heart failure exacerbation with preserved ejection fraction Type 2 diabetes Chronic kidney disease, stage III Hypertension Dyslipidemia PLAN: Await blood work from this morning to monitor kidney function Increase Lasix to 40 mg twice a day Continue to monitor blood pressure and make adjustments as needed Further recommendations pending patient's course Nurse practitioner note has been reviewed by physician. Signing provider agrees with the documented findings, assessment, and plan of care. Objective - Vital Signs Vital signs: Vital Signs Temp 97.9 F 06/21/22 07:39 Pulse 68 06/21/22 07:39 Resp 18 06/21/22 07:39 BP 158/77 06/21/22 07:39 Pulse Ox 85 L 06/21/22 07:39 FiO2 Intake & Output 06/20/22 06/21/22 06/21/22 18:59 06:59 18:59 Intake Total 500 Output Total 900 Balance -400 Intake: Oral 500 Output: Urine 900 Other: Voiding Method Toilet Urinal Urinal - Labs CBC & Chem 7: 06/20/22 05:25 06/20/22 05:25 Labs: Abnormal Lab Results - Last 24 Hours (Table) 06/20/22 06/20/22 06/20/22 Range/Units 05:25 11:09 16:04 RBC 3.55 L (4.40-5.60) X 10*6/uL Hgb 10.1 L (13.0-17.0) g/dL Hct 30.1 L (39.6-50.0) % POC Glucose (mg/dL) 175 H 214 H (70-110) mg/dL 06/20/22 06/21/22 Range/Units 20:14 06:51 RBC (4.40-5.60) X 10*6/uL Hgb (13.0-17.0) g/dL Hct (39.6-50.0) % POC Glucose (mg/dL) 128 H 114 H (70-110) mg/dL
[2022-06-21 10:43] LABS: Eosinophils # (A) 0.32 X 10*3/uL (0.04-0.35); Eosinophils % (A) 3.3 %; HCT 31.3 % (39.6-50.0); HGB 10.4 g/dL (13.0-17.0); Immature Grans, Automated 0.8 %; Lymphocytes # (A) 1.74 X 10*3/uL (0.90-5.00); Lymphocytes % (A) 18.2 %; MCH 28.3 pg (27.0-32.0); MCHC 33.2 g/dL (32.0-37.0); MCV 85.3 fL (80.0-97.0); Mean Platelet Volume 10.1 fL (9.5-12.2); Monocytes # (A) 0.94 X 10*3/uL (0.20-1.00); Monocytes % (A) 9.8 %; NRBC Per 100 WBC 0 /100 WBCS (0.0-0.0); Neutrophils # (A) 6.38 X 10*3/uL (1.80-7.70); Neutrophils % (A) 66.9 %; Platelet Count 337 X 10*3/uL (140-440); RBC 3.67 X 10*6/uL (4.40-5.60); RDW 13.4 % (11.5-14.5); WBC 9.56 X 10*3/uL (4.50-10.00)
[2022-06-21 11:27] LABS: African American GFR (CKD) 52.4 (60.0-200.0); Anion Gap 12.8 mmol/L (10.00-18.00); BUN/Creat Ratio 20.63 Ratio (12.00-20.00); Calcium 9.3 mg/dL (8.7-10.3); Carbon Dioxide 26.2 mmol/L (20.0-27.5); Magnesium 1.9 mg/dL (1.5-2.4); Non-African American GFR(CKD) 45.2 (60.0-200.0); Phosphorus 4.2 mg/dL (2.4-5.1); Potassium 4.8 mmol/L (3.5-5.5)
[2022-06-21 11:27] LABS: Glucose,Whole Blood 211 mg/dL (70-110)
--- NOTE | 2022-06-21 14:38 | P.PN ---
Subjective Principal diagnosis: Patient seen and examined at bedside. Patient denies chest pain or shortness of breath. Patient states that he is feeling better while being treated at the hospital. Patient continues to have lower extremity edema and his blood pressure is still fluctuating on the higher end. Objective - Vital Signs Vital signs: Vital Signs Temp 97.9 F 06/21/22 07:39 Pulse 68 06/21/22 07:39 Resp 18 06/21/22 07:39 BP 158/77 06/21/22 07:39 Pulse Ox 85 L 06/21/22 07:39 FiO2 Intake & Output 06/20/22 06/21/22 06/21/22 18:59 06:59 18:59 Intake Total 500 Output Total 900 Balance -400 Intake: Oral 500 Output: Urine 900 Other: Voiding Method Toilet Urinal Urinal - Exam General: [non toxic], [no distress], [appears at stated age] Derm: [warm], [dry] Head: [atraumatic], [normocephalic], [symmetric] Eyes: [EOMI], [no lid lag], [anicteric sclera] Mouth: [no lip lesion], [mucus membranes moist] Cardiovascular: [S1S2 reg], [no murmur], [positive posterior tibial pulse bilateral], Lungs: [CTA bilateral], [no rhonchi, no rales] , [no accessory muscle use] Abdominal: [soft], [ nontender to palpation], [no guarding], [no appreciable organomegaly] Ext: [no gross muscle atrophy], [+2 bilateral edema], [no contractures] Neuro: [ CN II-XI grossly intact], [no focal neuro deficits] Psych: [Alert], [oriented], [appropriate affect] - Labs CBC & Chem 7: 06/21/22 07:35 06/21/22 07:35 Labs: Abnormal Lab Results - Last 24 Hours (Table) 06/20/22 06/20/22 06/21/22 Range/Units 16:04 20:14 06:51 RBC (4.40-5.60) X 10*6/uL Hgb (13.0-17.0) g/dL Hct (39.6-50.0) % Immature Gran # (0.00-0.04) X 10*3/uL Sodium (135-145) mmol/L Chloride (96-109) mmol/L BUN (9.0-27.0) mg/dL Creatinine (0.6-1.5) mg/dL Est GFR (CKD-EPI)AfAm (60.0-200.0) Est GFR (CKD-EPI)NonAf (60.0-200.0) BUN/Creatinine Ratio (12.00-20.00) Ratio Glucose (70-110) mg/dL POC Glucose (mg/dL) 214 H 128 H 114 H (70-110) mg/dL 06/21/22 06/21/22 06/21/22 Range/Units 07:35 07:35 11:24 RBC 3.67 L (4.40-5.60) X 10*6/uL Hgb 10.4 L (13.0-17.0) g/dL Hct 31.3 L (39.6-50.0) % Immature Gran # 0.08 H (0.00-0.04) X 10*3/uL Sodium 133 L (135-145) mmol/L Chloride 94 L (96-109) mmol/L BUN 33.0 H (9.0-27.0) mg/dL Creatinine 1.6 H (0.6-1.5) mg/dL Est GFR (CKD-EPI)AfAm 52.4 L (60.0-200.0) Est GFR (CKD-EPI)NonAf 45.2 L (60.0-200.0) BUN/Creatinine Ratio 20.63 H (12.00-20.00) Ratio Glucose 129 H (70-110) mg/dL POC Glucose (mg/dL) 211 H (70-110) mg/dL Assessment and Plan Assessment: 1. Exertional dyspnea with bilateral lower extremity edema likely due to acute exacerbation of diastolic CHF Echo reveals preserved EF of 50-55% Cardiology recommendations appreciated Telemetry IV diuresis Strict I's and O's 2. CKD creatinine today is 1.6 up from 1.36 on admission average is 1.5 consult nephrology to monitor renal function with diuresis 3. Normocytic anemia ferrous sulfate BID 4. History of hypertension DC amlodipine which can be exacerbating the lower extremity edema Change metoprolol to Coreg to add alpha blockade. Parameters placed Monitor BP 5. History of hyperlipidemia Restart statin and aspirin 6. History of diabetes mellitus type 2 [id number] Restart home medication Amaryl hold metformin Add SGLT2 inhibitor as an outpatient if renal function permits Insulin sliding scale 7. Hypomagnesemia replaced Magnesium sulfate ordered 8. GI DVT prophylaxis 9. A.m. labs Disposition home with home care Anticipated length of stay is greater than 2 midnight days Patient is a full code
[2022-06-21 16:30] LABS: Glucose,Whole Blood 165 mg/dL (70-110)
[2022-06-21] MEDS: carvediloL 12.5 MG TAB PO SCH (17:47)
[2022-06-21 20:12] LABS: Glucose,Whole Blood 144 mg/dL (70-110)
[2022-06-21] MEDS: FAMOTIDINE 20 MG TAB PO SCH (22:05)
[2022-06-22] MEDS: HEPARIN SODIUM,PORCINE/PF 5,000 UNIT/0.5 ML SYRINGE SQ SCH ×4 (00:21→23:58)
[2022-06-22 07:07] LABS: Glucose,Whole Blood 95 mg/dL (70-110)
[2022-06-22] MEDS: INSULIN ASPART (NovoLOG) 100 UNIT/ML VIAL SQ SCH ×3 (07:28→16:53)
[2022-06-22] MEDS: FERROUS SULFATE 325 MG TAB PO SCH (08:06)
[2022-06-22] MEDS: ISOSORBIDE MONONITRATE ER 30 MG TAB.ER.24H PO SCH (08:06)
[2022-06-22] MEDS: GLIMEPIRIDE 2 MG TAB PO SCH (08:06)
[2022-06-22] MEDS: FUROSEMIDE 20 MG TAB PO SCH ×2 (08:06→15:19)
[2022-06-22] MEDS: hydrALAZINE HCL 50 MG TAB PO SCH ×3 (08:06→20:39)
[2022-06-22] MEDS: ASPIRIN 81 MG PO SCH (08:06)
[2022-06-22] MEDS: lisinopriL 20 MG TAB PO SCH (08:06)
[2022-06-22] MEDS: ATORVASTATIN 10 MG TAB PO SCH (08:06)
[2022-06-22] MEDS: carvediloL 12.5 MG TAB PO SCH ×2 (08:06→16:52)
--- NOTE | 2022-06-22 09:58 | P.NPCON ---
History of Present Illness - Reason for Consult acute renal failure, chronic renal failure - History of Present Illness Reason for consultation: Acute kidney injury on chronic kidney disease History of present illness: Patient is a 62-year-old male seen in consultation for acute kidney injury on chronic kidney disease. Patient has chronic kidney disease stage IIIa with baseline creatinine near 1.5. Creatinine has been in the range of 1.36-1.6 this admission. Patient presented to the hospital on 06/17/2022 with worsening shortness of breath. Echocardiogram showed ejection fraction of 50-55% with mild mitral regurgitation. Patient does have long-standing history of diabetes. Patient states he gained about 30 pounds in the last 2 months. Patient has been diuresed this admission and is now on oral Lasix 40 mg twice daily. 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 Edema and shortness of breath of both improved. He denies hematuria. Denies regular use of nonsteroidals. Denies family history of renal disease. Blood pressure has been stable. No fever. No chest pain. Vital signs are stable. General: Awake. No acute distress. HEENT: Head exam is unremarkable. LUNGS: Breath sounds decreased. HEART: Rate and Rhythm are regular. ABDOMEN: Soft, no distention. EXTREMITITES: 1+ edema. Past Medical History Past Medical History: Diabetes Mellitus, Hyperlipidemia History of Any Multi-Drug Resistant Organisms: None Reported Past Surgical History: Orthopedic Surgery Past Anesthesia/Blood Transfusion Reactions: No Reported Reaction Past Psychological History: No Psychological Hx Reported Smoking Status: Never smoker Past Alcohol Use History: None Reported Past Drug Use History: None Reported Medications and Allergies Home Medications Medication Instructions Recorded Confirmed Type Lovastatin [Mevacor] 40 mg PO DAILY 05/01/18 06/17/22 History Ferrous Sulfate [Feosol] 325 mg PO DAILY 06/17/22 06/17/22 History Glimepiride [Amaryl] 2 mg PO W/BRKFST 06/17/22 06/17/22 History amLODIPine [Norvasc] 5 mg PO DAILY 06/17/22 06/17/22 History lisinopriL 40 mg PO DAILY 06/17/22 06/17/22 History metFORMIN HCL 1,000 mg PO BID-W/MEALS 06/17/22 06/17/22 History Allergies Allergy/AdvReac Type Severity Reaction Status Date / Time No Known Allergies Allergy Verified 06/17/22 14:33 Physical Exam Vitals: Vital Signs Temp Pulse Resp BP Pulse Ox 06/22/22 08:00 98.4 F 85 12 162/81 95 06/22/22 02:00 97.7 F 68 17 136/67 92 L 06/21/22 22:05 68 17 06/21/22 20:00 97.9 F 60 16 142/77 94 L 06/21/22 14:00 97.8 F 65 16 152/73 90 L Intake and Output 06/21/22 06/22/22 06/22/22 22:59 06:59 14:59 Intake Total 1080 Output Total 900 800 Balance 180 -800 Intake: Oral 1080 Output: Urine 900 800 Other: Voiding Method Urinal # Voids 600 # Bowel Movements 1 Weight 70 kg Results - Lab Results Most recent lab results Calcium 9.3 mg/dL (8.7-10.3) 06/21/22 07:35 Phosphorus 4.2 mg/dL (2.4-5.1) 06/21/22 07:35 Magnesium 1.9 mg/dL (1.5-2.4) 06/21/22 07:35 06/21/22 07:35 06/21/22 07:35 Assessment and Plan Plan: Assessment: 1. Chronic kidney disease stage III with baseline creatinine near 1.5 secondary to diabetic kidney disease. Component of cardiorenal syndrome. 2. Acute on chronic diastolic CHF with mild mitral regurgitation. 3. Hypertension with chronic kidney disease. 4. Volume overload. 5. Diabetes mellitus. 6. Hypervolemic hyponatremia. 7. Proteinuria. This is likely due to underlying diabetic kidney disease. Further workup outpatient. Albumin 4 on admission. Plan: Maintain oral Lasix. Check renal ultrasound. Avoid nephrotoxins. Increase frequency of hydralazine to 50 mg 3 times daily. Hold for systolic blood pressure less than 120. Patient was advised to monitor his weight at home and to notify physician if develops worsening edema greater than 3 pound weight gain in 1 week duration. He was also advised to maintain a low-salt diet and 40-45 oz fluid restriction per day. Thank you for the consultation. I will continue to follow the patient with you during his hospital stay.
--- NOTE | 2022-06-22 10:35 | US ---
EXAMINATION TYPE: US kidneys/renal and bladder DATE OF EXAM: 06/22/2022 COMPARISON: CT 05/11/2018 CLINICAL HISTORY: 62 year-old male acute kidney injury TECHNIQUE: Multiple sonographic images of the kidneys and bladder are obtained. FINDINGS: EXAM MEASUREMENTS: Right Kidney: 11.6 x 5.5 x 6.1 cm Left Kidney: 11.0 x 4.9 x 4.6 cm Right Kidney: No hydronephrosis. There is a small cyst lower/lateral measures 1.6 x 1.0 x 1.4 cm, and solid mass central midpole measuring 2.3 x 2.7 x 2.1 cm Left Kidney: No hydronephrosis or masses seen Bladder: Partially distended bladder shows no gross abnormality. IMPRESSION: 1. No hydronephrosis. 2. Possible solid mass measuring 2.7 cm at the central mid pole of the right kidney. Further contrast enhanced CT or MRI evaluation recommended.
--- NOTE | 2022-06-22 10:39 | P.PN ---
Subjective Progress Note Date: 06/22/22 HISTORY OF PRESENT ILLNESS: This is a pleasant 62-year-old male past medical history significant for type 2 diabetes, hypertension, dyslipidemia, chronic kidney disease. 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 He is unsure who was PCP is, currently goes to [facility]. We have been asked to see in consultation for congestive heart failure. Patient presents to the emergency room with worsening shortness of breath, dyspnea on exertion, bilateral lower extremity edema, symptoms of orthopnea and weight gain. He also noticed walking up the stairs is more difficult and has increased shortness of breath. Patient initially presented to [facility] and patient was recommended to go to the emergency department. He denies any history of CAD, OR, stroke. He does endorse someone telling him that he had kidney problems. Family history includes father had an OR. He ethan es any alcohol, tobacco or illicit drug use. He denies any chest pain, lightheadedness, dizziness, syncope or near syncope, palpitations. On admission patient's blood pressure was elevated 180s/90s. Chest xray was concerning for fluid overload. Patient was started on IV Lasix. Patient with documented 2L urine output. DIAGNOSTICS * EKG reveals sinus rhythm, rate 84, slow R wave progression, no acute STT wave abnormalities suggest ischemia * Chest xray cardiomegaly, pulmonary vascular congestion. * Echocardiogram revealed EF 50-55% with mild MR, mild TR and mild RV dilatation * Labs showed a BNP of 771 and an overweight patient 06/19/2022 Patient was seen and examined lying flat in bed. Labs today show worsening renal function. He is currently on Lasix IV push 20 mg every 12 hours. He o verall feels his breathing is better. He feels his edema has improved. Blood pressure is elevated. 06/20/2022 The patient was seen and examined this morning resting comfortably in bed. He feels his breathing is stable. He has no orthopnea, PND, edema is minimal. Denies chest pain, palpitations or dizziness. Blood pressure remains elevated. Renal function is somewhat improved. 06/21/2022 Patient examined this morning at the bedside. Patient denies chest pain or pressure. Patient currently denies shortness of breath. He continues to have lower extremity edema. He remains on oral Lasix 20 mg twice a day. Lab work from this morning is currently pending. Patient's blood pressure has improved today with a systolic in the 150s, down from the 180s yesterday. His hydr alazine was increased yesterday. 06/22/2022 Patient examined this morning at the bedside. He denies chest pain or pressure. Denies SOB. Maintaining an oral Lasix. Vital signs are stable. PHYSICAL EXAM: VITAL SIGNS: Reviewed. GENERAL: Well-developed in no acute distress. NECK: Supple. No JVD or thyromegaly LUNGS: Respirations even and unlabored. Lungs essentially clear to auscultation bilaterally. HEART: Regular rate and rhythm. S1 and S2 heard. EXTREMITIES: Normal range of motion. No clubbing or cyanosis. Peripheral pulses intact. 2+ bilateral lower extremity edema ASSESSMENT: New onset acute heart failure exacerbation with preserved ejection fraction Type 2 diabetes Chronic kidney disease, stage III Hypertension Dyslipidemia PLAN: Continue current cardiac medications Continue to monitor blood pressure Patient is stable for discharge home today from a cardiac standpoint We will sign off. Please reconsult if needed. Nurse practitioner note has been reviewed by physician. Signing provider agrees with the documented findings, assessment, and plan of care. Objective - Vital Signs Vital signs: Vital Signs Temp 98.4 F 06/22/22 08:00 Pulse 85 06/22/22 08:00 Resp 12 06/22/22 08:00 BP 162/81 06/22/22 08:00 Pulse Ox 95 06/22/22 08:00 FiO2 Intake & Output 06/21/22 06/22/22 06/22/22 18:59 06:59 18:59 Intake Total 1080 Output Total 900 800 Balance 180 -800 Weight 70 kg Intake: Oral 1080 Output: Urine 900 800 Other: Voiding Method Urinal Urinal # Voids 600 # Bowel Movements 1 - Labs CBC & Chem 7: 06/21/22 07:35 06/21/22 07:35 Labs: Abnormal Lab Results - Last 24 Hours (Table) 06/21/22 06/21/22 06/21/22 Range/Units 07:35 07:35 11:24 RBC 3.67 L (4.40-5.60) X 10*6/uL Hgb 10.4 L (13.0-17.0) g/dL Hct 31.3 L (39.6-50.0) % Immature Gran # 0.08 H (0.00-0.04) X 10*3/uL Sodium 133 L (135-145) mmol/L Chloride 94 L (96-109) mmol/L BUN 33.0 H (9.0-27.0) mg/dL Creatinine 1.6 H (0.6-1.5) mg/dL Est GFR (CKD-EPI)AfAm 52.4 L (60.0-200.0) Est GFR (CKD-EPI)NonAf 45.2 L (60.0-200.0) BUN/Creatinine Ratio 20.63 H (12.00-20.00) Ratio Glucose 129 H (70-110) mg/dL POC Glucose (mg/dL) 211 H (70-110) mg/dL 06/21/22 06/21/22 Range/Units 16:28 20:11 RBC (4.40-5.60) X 10*6/uL Hgb (13.0-17.0) g/dL Hct (39.6-50.0) % Immature Gran # (0.00-0.04) X 10*3/uL Sodium (135-145) mmol/L Chloride (96-109) mmol/L BUN (9.0-27.0) mg/dL Creatinine (0.6-1.5) mg/dL Est GFR (CKD-EPI)AfAm (60.0-200.0) Est GFR (CKD-EPI)NonAf (60.0-200.0) BUN/Creatinine Ratio (12.00-20.00) Ratio Glucose (70-110) mg/dL POC Glucose (mg/dL) 165 H 144 H (70-110) mg/dL
[2022-06-22 11:01] LABS: Basophils # (A) 0.08 X 10*3/uL (0.00-0.10); Eosinophils # (A) 0.26 X 10*3/uL (0.04-0.35); Eosinophils % (A) 3.3 %; HCT 30.2 % (39.6-50.0); Immature Grans, Automated 0.6 %; Lymphocytes # (A) 1.65 X 10*3/uL (0.90-5.00); Lymphocytes % (A) 21.2 %; MCH 28.4 pg (27.0-32.0); MCHC 33.1 g/dL (32.0-37.0); MCV 85.8 fL (80.0-97.0); Mean Platelet Volume 10.1 fL (9.5-12.2); Monocytes # (A) 0.83 X 10*3/uL (0.20-1.00); Monocytes % (A) 10.7 %; NRBC Per 100 WBC 0 /100 WBCS (0.0-0.0); Neutrophils # (A) 4.91 X 10*3/uL (1.80-7.70); Neutrophils % (A) 63.2 %; Platelet Count 325 X 10*3/uL (140-440); RBC 3.52 X 10*6/uL (4.40-5.60); RDW 13.6 % (11.5-14.5); WBC 7.78 X 10*3/uL (4.50-10.00)
[2022-06-22 11:29] LABS: African American GFR (CKD) 50.1 (60.0-200.0); Albumin/Globulin Ratio 1.63 (1.60-3.17); Anion Gap 12.2 mmol/L (10.00-18.00); BUN/Creat Ratio 18.25 Ratio (12.00-20.00); Blood Urea Nitrogen 30.3 mg/dL (9.0-27.0); Calcium 9.5 mg/dL (8.7-10.3); Carbon Dioxide 28.4 mmol/L (20.0-27.5); Globulin 2.4 g/dL (1.6-3.3); Non-African American GFR(CKD) 43.2 (60.0-200.0); Potassium 4.6 mmol/L (3.5-5.5); Total Bilirubin 0.3 mg/dL (0.30-1.20); Total Protein 6.4 g/dL (6.2-8.2)
[2022-06-22 11:38] LABS: Glucose,Whole Blood 138 mg/dL (70-110)
--- NOTE | 2022-06-22 13:25 | P.PN ---
Subjective Progress Note Date: 06/22/22 Principal diagnosis: SOB Hospital Course: 62-year-old male with a history of dyslipidemia, hypertension and diabetes presented for shortness of breath and lower extremity edema. Patient presented for acute exacerbation of diastolic CHF. Patient was previously on IV diuresis, now on oral diuretics. Her slight uptrend in his serum creatinine, nephrology following. Subjective: Patient seen and examined at bedside. No acute events overnight. He denies any orthopnea, PND, chest pain, shortness of breath, or abdominal pain. He denies any urinary complaints. Pertinent positives and negatives as discussed above, a complete review of systems was performed and all other systems are negative. Vitals Signs Reviewed. General: nontoxic, no distress, appears at stated age, obese Derm: warm, dry Head: atraumatic, normocephalic, symmetric Eyes: EOMI, no lid lag, anicteric sclera Mouth: no lip lesion, mucus membranes moist Cardiovascular: S1S2 reg, no murmur Lungs: CTA bilateral, no rhonchi, no rales , no accessory muscle use Abdominal: soft, nontender to palpation, no guarding, no appreciable organomegaly Ext: no gross muscle atrophy, 2+ pitting edema to knees, no contractures Neuro: CN II-XI grossly intact, no focal neuro deficits Psych: Alert, oriented, appropriate affect Assessment and Plan: Acute exacerbation of diastolic CHF - Echo shows EF 50-55% -Now on oral diuretics -Cardiology following -Strict I's and O's CKD with uptrending creatinine -Nephrology following -Recommending renal ultrasound Normocytic anemia -On ferrous sulfate Hypertension -Discontinue amlodipine -Change metoprolol to carvedilol - on lisinopril and imdur - also on hydralazine per nephro Dyslipidemia -Continue statin Diabetes mellitus, [id number] -Holding home medications -Sliding scale insulin DVT ppx: heparin sQ Code status: Full code Anticipated discharge place: Home Anticipated discharge time: Tomorrow Objective - Vital Signs Vital signs: Vital Signs Temp 98.4 F 06/22/22 08:00 Pulse 85 06/22/22 08:00 Resp 12 06/22/22 08:00 BP 162/81 06/22/22 08:00 Pulse Ox 95 06/22/22 08:00 FiO2 Intake & Output 06/21/22 06/22/22 06/22/22 18:59 06:59 18:59 Intake Total 1080 Output Total 900 800 850 Balance 180 -800 -850 Weight 70 kg Intake: Oral 1080 Output: Urine 900 800 850 Other: Voiding Method Urinal Urinal # Voids 600 # Bowel Movements 1 - Labs CBC & Chem 7: 06/22/22 07:07 06/22/22 07:07 Labs: Abnormal Lab Results - Last 24 Hours (Table) 06/21/22 06/21/22 06/22/22 Range/Units 16:28 20:11 07:07 RBC 3.52 L (4.40-5.60) X 10*6/uL Hgb 10.0 L (13.0-17.0) g/dL Hct 30.2 L (39.6-50.0) % Immature Gran # 0.05 H (0.00-0.04) X 10*3/uL Carbon Dioxide (20.0-27.5) mmol/L BUN (9.0-27.0) mg/dL Creatinine (0.6-1.5) mg/dL Est GFR (CKD-EPI)AfAm (60.0-200.0) Est GFR (CKD-EPI)NonAf (60.0-200.0) POC Glucose (mg/dL) 165 H 144 H (70-110) mg/dL 06/22/22 06/22/22 Range/Units 07:07 11:36 RBC (4.40-5.60) X 10*6/uL Hgb (13.0-17.0) g/dL Hct (39.6-50.0) % Immature Gran # (0.00-0.04) X 10*3/uL Carbon Dioxide 28.4 H (20.0-27.5) mmol/L BUN 30.3 H (9.0-27.0) mg/dL Creatinine 1.7 H (0.6-1.5) mg/dL Est GFR (CKD-EPI)AfAm 50.1 L (60.0-200.0) Est GFR (CKD-EPI)NonAf 43.2 L (60.0-200.0) POC Glucose (mg/dL) 138 H (70-110) mg/dL
[2022-06-22 16:20] LABS: Glucose,Whole Blood 186 mg/dL (70-110)
--- NOTE | 2022-06-22 17:51 | CT ---
EXAMINATION TYPE: CT abdomen w con DATE OF EXAM: 06/22/2022 COMPARISON: 05/01/2018 HISTORY: right renal mass CT DLP: 1611 mGycm Automated exposure control for dose reduction was used. CONTRAST: Performed with IV Contrast, patient injected with 70cc mL of Isovue 300. Images obtained from the diaphragm to the iliac crest with the IV contrast. There is some mild subsegmental atelectasis at the lung bases. There is mild pleural thickening and f luid at the right posterior lung base. Heart is enlarged. No pericardial effusion. There is small hia nino hernia present liver and spleen are intact. Stomach is intact. No pancreatic mass. There is likel y small calcified gallstones. The bile ducts are not dilated. No adrenal mass. Kidneys have normal si ze. No hydronephrosis. There is normal contrast opacification of the kidneys. Delayed images show nor mal renal excretion. Ureters are not dilated. No retroperitoneal adenopathy. There is no sign of mesenteric edema. There is no ascites or free air. No sign of a bowel obstruction . There is 7 mm cortical cyst lateral left kidney. There is 7 mm cortical cyst upper pole left kidney . IMPRESSION: Small left-sided renal cortical cysts. No evidence of a solid renal mass. No adverse change compared to old exam. No sign of a right renal mass. Mild cardiomegaly. Small right pleural effusion. Heart appears increased compared to the old exam. Co ngestive heart failure is also demonstrated by the chest x-ray of 06/17/2022.
[2022-06-22 20:04] LABS: Glucose,Whole Blood 193 mg/dL (70-110)
[2022-06-22] MEDS: FAMOTIDINE 20 MG TAB PO SCH (20:38)
[2022-06-23 01:53] VITALS: RESP 17
[2022-06-23 06:59] LABS: Glucose,Whole Blood 106 mg/dL (70-110)
[2022-06-23 07:08] LABS: African American GFR (CKD) 46 (>60 ml/min/1.73 sqM); Anion Gap 7 mmol/L; Blood Urea Nitrogen 32 mg/dL (9-20); Calcium 9.2 mg/dL (8.4-10.2); Carbon Dioxide 34 mmol/L (22-30); Chloride 96 mmol/L (98-107); Glucose 86 mg/dL (74-99); Magnesium 1.8 mg/dL (1.6-2.3); Non-African American GFR(CKD) 40 (>60 ml/min/1.73 sqM); Potassium 4.2 mmol/L (3.5-5.1); Sodium 137 mmol/L (137-145)
[2022-06-23] MEDS: INSULIN ASPART (NovoLOG) 100 UNIT/ML VIAL SQ SCH (07:22)
[2022-06-23] MEDS: ASPIRIN 81 MG PO SCH (07:32)
[2022-06-23] MEDS: carvediloL 12.5 MG TAB PO SCH (07:32)
[2022-06-23] MEDS: HEPARIN SODIUM,PORCINE/PF 5,000 UNIT/0.5 ML SYRINGE SQ SCH (07:32)
[2022-06-23] MEDS: FERROUS SULFATE 325 MG TAB PO SCH (07:32)
[2022-06-23] MEDS: ATORVASTATIN 10 MG TAB PO SCH (07:32)
[2022-06-23] MEDS: hydrALAZINE HCL 50 MG TAB PO SCH (07:32)
[2022-06-23] MEDS: ISOSORBIDE MONONITRATE ER 30 MG TAB.ER.24H PO SCH (07:32)
[2022-06-23] MEDS: FUROSEMIDE 20 MG TAB PO SCH (07:32)
[2022-06-23] MEDS: lisinopriL 20 MG TAB PO SCH (07:32)
[2022-06-23 07:43] VITALS: BP 162/79; PULSE 89; TEMP 96.5
--- NOTE | 2022-06-23 10:43 | P.PN ---
Subjective Patient is seen in follow-up for acute kidney injury on chronic kidney disease. Renal function stable. Good urine output. No vomiting or diarrhea. Denies chest pain or shortness of breath. On room air. Vital signs are stable. General: Awake. No acute distress. HEENT: Head exam is unremarkable. LUNGS: Breath sounds decreased. HEART: Rate and Rhythm are regular. ABDOMEN: Soft, no distention. EXTREMITITES: Trace edema. Objective - Vital Signs Vital signs: Vital Signs Temp 96.5 F L 06/23/22 07:42 Pulse 89 06/23/22 07:42 Resp 17 06/23/22 07:42 BP 162/79 06/23/22 07:42 Pulse Ox 92 L 06/23/22 07:42 FiO2 Intake & Output 06/22/22 06/23/22 06/23/22 18:59 06:59 18:59 Intake Total 500 Output Total 1250 2004 550 Balance -1250 -1505 -550 Weight 74 kg Intake: Oral 500 Output: Urine 1250 2004 550 Other: Voiding Method Urinal Urinal Urinal - Labs CBC & Chem 7: 06/22/22 07:07 06/23/22 06:27 Labs: Abnormal Lab Results - Last 24 Hours (Table) 06/22/22 06/22/22 06/22/22 Range/Units 07:07 07:07 11:36 RBC 3.52 L (4.40-5.60) X 10*6/uL Hgb 10.0 L (13.0-17.0) g/dL Hct 30.2 L (39.6-50.0) % Immature Gran # 0.05 H (0.00-0.04) X 10*3/uL Chloride (98-107) mmol/L Carbon Dioxide 28.4 H (20.0-27.5) mmol/L BUN 30.3 H (9.0-27.0) mg/dL Creatinine 1.7 H (0.6-1.5) mg/dL Est GFR (CKD-EPI)AfAm 50.1 L (60.0-200.0) Est GFR (CKD-EPI)NonAf 43.2 L (60.0-200.0) POC Glucose (mg/dL) 138 H (70-110) mg/dL 06/22/22 06/22/22 06/23/22 Range/Units 16:19 20:02 06:27 RBC (4.40-5.60) X 10*6/uL Hgb (13.0-17.0) g/dL Hct (39.6-50.0) % Immature Gran # (0.00-0.04) X 10*3/uL Chloride 96 L (98-107) mmol/L Carbon Dioxide 34 H (20.0-27.5) mmol/L BUN 32 H (9.0-27.0) mg/dL Creatinine 1.77 H (0.6-1.5) mg/dL Est GFR (CKD-EPI)AfAm (60.0-200.0) Est GFR (CKD-EPI)NonAf (60.0-200.0) POC Glucose (mg/dL) 186 H 193 H (70-110) mg/dL Assessment and Plan Plan: Assessment: 1. Chronic kidney disease stage III with baseline creatinine near 1.5 secondary to diabetic kidney disease. Component of cardiorenal syndrome. Received IV contrast on 06/22/[address] No hydronephrosis noted on kidney ultrasound. 2. Acute on chronic diastolic CHF with mild mitral regurgitation. 3. Hypertension with chronic kidney disease. 4. Volume overload. Improved with diuresis. 5. Diabetes mellitus. 6. Hypervolemic hyponatremia. Stable. 7. Proteinuria. This is likely due to underlying diabetic kidney disease. Further workup outpatient. Albumin 4 on admission. 8. Right kidney mass noted on ultrasound. However no masses noted on CT. Plan: Maintain oral Lasix. Avoid nephrotoxins. Increase dose of hydralazine. Hold for systolic blood pressure less than 120. Monitor for contrast-induced acute kidney injury. Patient was advised to monitor his weight at home and to notify physician if develops worsening edema greater than 3 pound weight gain in 1 week duration. He was also advised to maintain a low-salt diet and 40-45 oz fluid restriction per day.
--- NOTE | 2022-06-23 15:20 | P.DS ---
Providers Date of admission: 06/17/22 15:04 Expected date of discharge: 06/23/22 Attending physician: Charisma Castañeda DO Consults: 06/21/22 14:32 Consult Physician Routine Consulting Provider: Andrei Arguello Consult Reason/Comments: CON on CKD Do you want consulting provider notified?: Yes Primary care physician: Stated None Hospital Course: Discharge Diagnosis: New onset diastolic CHF exacerbation Hypertension Diabetes Hypervolemic hyponatremia Chronic kidney disease stage III Hospital Course: 62-year-old male with history of dyslipidemia, hypertension, chronic kidney disease, diabetes presented with shortness of breath and lower extremity edema. He was admitted for acute exacerbation of diastolic CHF. Started on IV diuretics initially, switched to oral diuretics. Patient was evaluated by cardiology. Echocardiogram showed LVEF 50-55%. With diuretics and heart failure exacerbation his creatinine was slightly elevated. His concern for acute kidney injury, nephrology was consulted. Further recommendations renal ultrasound was done. Her right renal mass was noted on renal ultrasound. Patient received abdomen CT with contrast which did not visualize the renal mass. Hypertension medications were also changed to reduce afterload as well as decreased lower extremity edema. Amlodipine was discontinued. Hydralazine, carvedilol, Lasix, Imdur was added. Patient would require a BMP in 2 days by primary. Patient seen and examined at bedside.[] Vital signs reviewed and stable. General: nontoxic, no distress, appears at stated age, obese Derm: warm, dry Head: atraumatic, normocephalic, symmetric Eyes: EOMI, no lid lag, anicteric sclera Mouth: no lip lesion, mucus membranes moist Cardiovascular: S1S2 reg, no murmur Lungs: CTA bilateral, no rhonchi, no rales , no accessory muscle use Abdominal: soft, nontender to palpation, no guarding, no appreciable organomegaly Ext: no gross muscle atrophy, 2+ pitting edema to mid chaparro, no contractures Neuro: CN II-XI grossly intact, no focal neuro deficits Psych: Alert, oriented, appropriate affect A total of 38 minutes of time were spent preparing this complex discharge summary. Patient was discharged on 06/23/22 at 9:56. Patient Condition at Discharge: Stable Plan - Discharge Summary Discharge Rx Participant: No New Discharge Prescriptions: New hydrALAZINE HCL [Apresoline] 50 mg PO TID #90 tab Aspirin 81 mg PO DAILY #30 tab carvediloL [Coreg*] 25 mg PO BID-W/MEALS #60 tab Furosemide [Lasix] 40 mg PO BID@0900,1600 #60 tab Famotidine [Pepcid] 20 mg PO HS #30 tab Isosorbide Mononitrate ER [Imdur] 30 mg PO DAILY #30 tab Continue Lovastatin [Mevacor] 40 mg PO DAILY Ferrous Sulfate [Iron (65 MG Elemental)] 325 mg PO DAILY lisinopriL 40 mg PO DAILY Changed Glimepiride [Amaryl] 1 mg PO W/BRKFST #0 metFORMIN HCL 1,000 mg PO DAILY #0 Discontinued amLODIPine [Norvasc] 5 mg PO DAILY Discharge Medication List Lovastatin [Mevacor] 40 mg PO DAILY 05/01/18 [History] Ferrous Sulfate [Iron (65 MG Elemental)] 325 mg PO DAILY 06/17/22 [History] lisinopriL 40 mg PO DAILY 06/17/22 [History] Aspirin 81 mg PO DAILY #30 tab 06/23/22 [Rx] Famotidine [Pepcid] 20 mg PO HS #30 tab 06/23/22 [Rx] Furosemide [Lasix] 40 mg PO BID@0900,1600 #60 tab 06/23/22 [Rx] Glimepiride [Amaryl] 1 mg PO W/BRKFST #0 06/23/22 [Rx] Isosorbide Mononitrate ER [Imdur] 30 mg PO DAILY #30 tab 06/23/22 [Rx] carvediloL [Coreg*] 25 mg PO BID-W/MEALS #60 tab 06/23/22 [Rx] hydrALAZINE HCL [Apresoline] 50 mg PO TID #90 tab 06/23/22 [Rx] metFORMIN HCL 1,000 mg PO DAILY #0 06/23/22 [Rx] Follow up Appointment(s)/Referral(s): Lio Tejada NPC [REFERRING] - 07/16/22 10:00 am Patient Instructions/Handouts: Famotidine (By mouth), Furosemide (By mouth), Aspirin (By mouth), Hydralazine (By mouth), Isosorbide Mononitrate (By mouth), Carvedilol (By mouth), Heart Failure (DC), Low-Sodium Diet (DC), Fluid Restriction (DC), Diabetic Kidney Disease (DC) Activity/Diet/Wound Care/Special Instructions: Please see your PCP in 1-2 days. You need get kidney function tests repeated in 2 days. Discharge Disposition: HOME SELF-CARE
[2022-06-23] MEDS ORDERED: hydrALAZINE HCL 50 MG TAB PO SCH (16:00)
== END 2022-06-23 12:39 | disposition home or self-care (01) | DRG 291 ==
LOC: EC 12:40 → 4SSUR 15:04
PROVIDERS: ADMIT Internal Medicine; ATTEND Internal Medicine
DX: I13.0 Hypertensive heart and chronic kidney disease with heart failure and stage 1 through stage 4 chronic kidney disease, or unspecified chronic kidney disease (principal); I50.31 Acute diastolic (congestive) heart failure; E87.1 Hypo-osmolality and hyponatremia; N17.9 Acute kidney failure, unspecified; D64.9 Anemia, unspecified; E78.5 Hyperlipidemia, unspecified; E83.42 Hypomagnesemia; E11.22 Type 2 diabetes mellitus with diabetic chronic kidney disease; E66.3 Overweight; Z68.28 Body mass index [BMI] 28.0-28.9, adult; N18.31 Chronic kidney disease, stage 3a; R80.9 Proteinuria, unspecified; N28.89 Other specified disorders of kidney and ureter; R09.02 Hypoxemia; Z79.84 Long term (current) use of oral hypoglycemic drugs; Z79.899 Other long term (current) drug therapy; Z82.49 Family history of ischemic heart disease and other diseases of the circulatory system
CPT/HCPCS: 36415; 71046; 74160; 76770; 78582; 80048; 80053; 80061; 81001; 82306; 82607; 82746; 83036; 83540; 83550; 83735; 83880; 84100; 84443; 84484; 85025; 85379; 85610; 85730; 87635; 93005; 93306; 93970; 94760; 96374; 99285

== ENCOUNTER 2022-08-05 10:17 | Emergency (ER) | payer MEDICARE ==
[2022-08-05 10:35] VITALS: RESP 18
--- NOTE | 2022-08-05 10:58 | ED ---
General Adult HPI - General Chief complaint: Syncope Stated complaint: Weakness Time Seen by Provider: 08/05/22 10:38 Source: patient, RN notes reviewed Mode of arrival: EMS Limitations: no limitations - History of Present Illness Initial comments: Patient is a 62 year old male presenting to the ER via EMS with a chief complaint of dizziness. Patient was at a local clinic getting routine lab work drawn when he became nauseous and dizzy. He denies LOC. He admits to eating a small breakfast this morning. Patient states he took all of his medications this morning and lately after taking his medications he has been feeling nauseous. Denies headache, chest pain/palpitations, shortness of breath, abdominal pain, vomiting, or diarrhea. No complaints at this time. - Related Data Home Medications Medication Instructions Recorded Confirmed Lovastatin [Mevacor] 40 mg PO DAILY 05/01/18 08/05/22 Ferrous Sulfate [Iron (65 MG 325 mg PO DAILY 06/17/22 08/05/22 Elemental)] lisinopriL 40 mg PO DAILY 06/17/22 08/05/22 Furosemide [Lasix] 40 mg PO BID@0900,1600 08/05/22 08/05/22 hydrALAZINE HCL [Apresoline] 100 mg PO TID 08/05/22 08/05/22 Previous Rx's Medication Instructions Recorded Aspirin 81 mg PO DAILY #30 tab 06/23/22 Famotidine [Pepcid] 20 mg PO HS #30 tab 06/23/22 Glimepiride [Amaryl] 1 mg PO W/BRKFST #0 06/23/22 Isosorbide Mononitrate ER [Imdur] 30 mg PO DAILY #30 tab 06/23/22 carvediloL [Coreg*] 25 mg PO BID-W/MEALS #60 tab 06/23/22 metFORMIN HCL 1,000 mg PO DAILY #0 06/23/22 Allergies Allergy/AdvReac Type Severity Reaction Status Date / Time No Known Allergies Allergy Verified 08/05/22 11:56 Review of Systems ROS Statement: Those systems with pertinent positive or pertinent negative responses have been documented in the HPI. ROS Other: All systems not noted in ROS Statement are negative. Past Medical History Past Medical History: Diabetes Mellitus, Hyperlipidemia History of Any Multi-Drug Resistant Organisms: None Reported Past Surgical History: Orthopedic Surgery, Tonsillectomy Past Anesthesia/Blood Transfusion Reactions: No Reported Reaction Past Psychological History: No Psychological Hx Reported Smoking Status: Never smoker Past Alcohol Use History: None Reported Past Drug Use History: None Reported General Exam General appearance: alert, in no apparent distress Head exam: Present: atraumatic, normocephalic, normal inspection Eye exam: Present: normal appearance, PERRL, EOMI. Absent: scleral icterus, conjunctival injection, periorbital swelling Neck exam: Present: normal inspection. Absent: tenderness, meningismus, lymphadenopathy Respiratory exam: Present: normal lung sounds bilaterally. Absent: respiratory distress, wheezes, rales, rhonchi, stridor Cardiovascular Exam: Present: regular rate, normal rhythm, normal heart sounds. Absent: systolic murmur, diastolic murmur, rubs, gallop, clicks GI/Abdominal exam: Present: soft, normal bowel sounds. Absent: distended, tenderness, guarding, rebound, rigid Extremities exam: Present: normal inspection, full ROM, normal capillary refill. Absent: tenderness, pedal edema, joint swelling, calf tenderness Neurological exam: Present: alert, oriented X3, CN II-XII intact Psychiatric exam: Present: normal affect, normal mood Skin exam: Present: warm, dry, intact, normal color. Absent: rash Course Vital Signs 08/05/22 08/05/22 08/05/22 10:29 10:35 11:35 Temperature 98.5 F Pulse Rate 69 76 71 Pulse Rate [ Stencil Typist ] Respiratory 18 18 18 Rate Blood Pressure 133/84 106/71 Blood Pressure [Left Arm] O2 Sat by Pulse 98 96 97 Oximetry 08/05/22 08/05/22 08/05/22 12:00 12:24 12:25 Temperature Pulse Rate 68 Pulse Rate [ 76 75 Stencil Typist ] Respiratory 18 18 18 Rate Blood Pressure 128/80 Blood Pressure 146/83 114/70 [Left Arm] O2 Sat by Pulse 94 L Oximetry 08/05/22 08/05/22 08/05/22 12:27 13:00 14:00 Temperature 97 F L Pulse Rate 71 76 Pulse Rate [ 75 Stencil Typist ] Respiratory 18 18 18 Rate Blood Pressure 141/88 131/82 Blood Pressure 91/53 [Left Arm] O2 Sat by Pulse 95 96 Oximetry 08/05/22 14:36 Temperature Pulse Rate 76 Pulse Rate [ Stencil Typist ] Respiratory 18 Rate Blood Pressure 142/80 Blood Pressure [Left Arm] O2 Sat by Pulse 97 Oximetry EKG Findings - EKG Comments: EKG Findings:: A performed at 11:15 interpreted by rate of 68 sinus rhythm OR 199 QRS 110 QT/QTC 389/407 - EKG Results: EKG: interpreted by JOSE Medical Decision Making - Medical Decision Making 62-year-old presented for near syncopal episode. Patient's has no symptoms at rest, patient denies any chest pain. Patient did have some mild orthostatic hypotension but is improved after IV fluids he is a bland day with no symptoms patient is requesting be discharged. Plan. - Lab Data Result diagrams: 08/05/22 12:07 08/05/22 12:12 Lab Results 08/05/22 08/05/22 08/05/22 Range/Units 12:07 12:12 12:12 WBC 10.7 H (3.8-10.6) k/uL RBC 4.66 (4.30-5.90) m/uL Hgb 13.4 (13.0-17.5) gm/dL Hct 39.3 (39.0-53.0) % MCV 84.3 (80.0-100.0) fL MCH 28.8 (25.0-35.0) pg MCHC 34.2 (31.0-37.0) g/dL RDW 13.2 (11.5-15.5) % Plt Count 268 (150-450) k/uL MPV 9.8 Neutrophils % 75 % Lymphocytes % 14 % Monocytes % 5 % Eosinophils % 4 % Basophils % 1 % Neutrophils # 8.0 H (1.3-7.7) k/uL Lymphocytes # 1.4 (1.0-4.8) k/uL Monocytes # 0.5 (0-1.0) k/uL Eosinophils # 0.4 (0-0.7) k/uL Basophils # 0.1 (0-0.2) k/uL PT 10.5 (9.0-12.0) sec INR 1.0 (<1.2) APTT 24.1 (22.0-30.0) sec Sodium 135 L (137-145) mmol/L Potassium 4.9 (3.5-5.1) mmol/L Chloride 99 (98-107) mmol/L Carbon Dioxide 28 (22-30) mmol/L Anion Gap 8 mmol/L BUN 36 H (9-20) mg/dL Creatinine 1.95 H (0.66-1.25) mg/dL Est GFR (CKD-EPI)AfAm 41 (>60 ml/min/1.73 sqM) Est GFR (CKD-EPI)NonAf 36 (>60 ml/min/1.73 sqM) Glucose 352 H (74-99) mg/dL Calcium 9.3 (8.4-10.2) mg/dL Magnesium 1.5 L (1.6-2.3) mg/dL Total Bilirubin 0.5 (0.2-1.3) mg/dL AST 27 (17-59) U/L ALT 30 (4-49) U/L Alkaline Phosphatase 97 (38-126) U/L Troponin I (0.000-0.034) ng/mL Total Protein 6.8 (6.3-8.2) g/dL Albumin 4.2 (3.5-5.0) g/dL 08/05/22 Range/Units 12:12 WBC (3.8-10.6) k/uL RBC (4.30-5.90) m/uL Hgb (13.0-17.5) gm/dL Hct (39.0-53.0) % MCV (80.0-100.0) fL MCH (25.0-35.0) pg MCHC (31.0-37.0) g/dL RDW (11.5-15.5) % Plt Count (150-450) k/uL MPV Neutrophils % % Lymphocytes % % Monocytes % % Eosinophils % % Basophils % % Neutrophils # (1.3-7.7) k/uL Lymphocytes # (1.0-4.8) k/uL Monocytes # (0-1.0) k/uL Eosinophils # (0-0.7) k/uL Basophils # (0-0.2) k/uL PT (9.0-12.0) sec INR (<1.2) APTT (22.0-30.0) sec Sodium (137-145) mmol/L Potassium (3.5-5.1) mmol/L Chloride (98-107) mmol/L Carbon Dioxide (22-30) mmol/L Anion Gap mmol/L BUN (9-20) mg/dL Creatinine (0.66-1.25) mg/dL Est GFR (CKD-EPI)AfAm (>60 ml/min/1.73 sqM) Est GFR (CKD-EPI)NonAf (>60 ml/min/1.73 sqM) Glucose (74-99) mg/dL Calcium (8.4-10.2) mg/dL Magnesium (1.6-2.3) mg/dL Total Bilirubin (0.2-1.3) mg/dL AST (17-59) U/L ALT (4-49) U/L Alkaline Phosphatase (38-126) U/L Troponin I <0.012 (0.000-0.034) ng/mL Total Protein (6.3-8.2) g/dL Albumin (3.5-5.0) g/dL Disposition Clinical Impression: Orthostatic hypotension, Vasovagal near syncope Disposition: HOME SELF-CARE Condition: Stable Instructions (If sedation given, give patient instructions): Syncope (ED) Is patient prescribed a controlled substance at d/c from ED?: No Referrals: Tawanna Canela MD [Primary Care Provider] - 1-2 days Time of Disposition: 14:40
[2022-08-05 12:18] LABS: Basophils # (A) 0.1 k/uL (0-0.2); Basophils % (A) 1 %; Eosinophils # (A) 0.4 k/uL (0-0.7); Eosinophils % (A) 4 %; HCT 39.3 % (39.0-53.0); HGB 13.4 gm/dL (13.0-17.5); Lymphocytes # (A) 1.4 k/uL (1.0-4.8); Lymphocytes % (A) 14 %; MCH 28.8 pg (25.0-35.0); MCHC 34.2 g/dL (31.0-37.0); MCV 84.3 fL (80.0-100.0); Mean Platelet Volume 9.8; Monocytes # (A) 0.5 k/uL (0-1.0); Monocytes % (A) 5 %; Neutrophils % (A) 75 %; Platelet Count 268 k/uL (150-450); RBC 4.66 m/uL (4.30-5.90); RDW 13.2 % (11.5-15.5); WBC 10.7 k/uL (3.8-10.6)
[2022-08-05 12:27] LABS: Partial Thromboplastin Time 24.1 sec (22.0-30.0); Prothrombin Time 10.5 sec (9.0-12.0)
[2022-08-05] MEDS ORDERED: SODIUM CHLORIDE 0.9% 1,000 ML IV ONE (12:37)
[2022-08-05 12:43] LABS: Albumin 4.2 g/dL (3.5-5.0); Calcium 9.3 mg/dL (8.4-10.2); Magnesium 1.5 mg/dL (1.6-2.3); Potassium 4.9 mmol/L (3.5-5.1); Total Bilirubin 0.5 mg/dL (0.2-1.3); Total Protein 6.8 g/dL (6.3-8.2)
[2022-08-05 14:36] VITALS: PULSE 76; TEMP 97
[2022-08-05 14:37] VITALS: BP 142/80
== END 2022-08-05 14:42 | disposition home or self-care (01) ==
LOC: EC 10:17
DX: R55 Syncope and collapse (principal); E11.9 Type 2 diabetes mellitus without complications; E78.5 Hyperlipidemia, unspecified
CPT/HCPCS: 36415; 80053; 83735; 84484; 85025; 85610; 85730; 93005; 96360; 99285

== ENCOUNTER 2022-12-15 05:59 | Day surgery (SDC) | payer MEDICARE ==
[2022-12-15] MEDS ORDERED: LACTATED RINGERS 1,000 ML IV SCH (06:04)
[2022-12-15] MEDS ORDERED: LIDOCAINE 1% (10MG/ML) FOR IV START INTRADERMA PRN (06:04)
[2022-12-15 06:41] VITALS: TEMP 96.9
[2022-12-15 06:52] LABS: Glucose,Whole Blood 157 mg/dL (70-110)
[2022-12-15] MEDS ORDERED: LIDOCAINE 2% INJ 20 MG/ML (2 ML VIAL) ONE (07:02)
--- NOTE | 2022-12-15 07:22 | P.PCN ---
Date of Procedure: 12/15/22 Procedure(s) Performed: Brief history: Patient is a pleasant 62-year-old white male scheduled for an elective upper endoscopy as well as colonoscopy as a part of evaluation of anemia and history of colon polyps. Last colonoscopy was 5 years ago Procedure performed: Esophagogastroduodenoscopy with biopsy Colonoscopy with biopsy Preoperative diagnosis: Anemia History of colon polyps Anesthesia: [facility] – [place] Procedure: After informed consent was obtained from the patient was brought into the endoscopy unit and IV sedation was administered by anesthesia under continuous monitoring. Initially upper endoscopy was done. The Olympus GF 160 video endoscope was inserted inserted into the mouth and esophagus intubated without any difficulty and was gradually advanced into the stomach and duodenum and carefully examined. The bulb of the duodenum appeared normal. In the second part of the duodenum there were 3 small duodenal polyps identified measuring about 3-4 mm in size which were removed by biopsy. The scope was then withdrawn into the stomach adequately insufflated with air and upon careful examination the antrum had mild had mild gastritis and biopsies were done from this area. Because of the body, cardia and fundus appeared normal. The scope was then withdrawn into the esophagus. The GE junction was located at 40 cm to the incisors. It appeared regular with no erythema erosions or ulcerations. Rest of the esophagus appeared normal. Patient tolerated the procedure well. At this time the patient continued to remain sedation. Initial digital rectal examination was normal. Olympus CF 160 video colonoscope was then inserted into the rectum and gradually advanced to the cecum without any difficulty. Careful examination was performed as the scope was gradually being withdrawn. The prep was excellent. The cecum had a 2 mm diminutive polyp removed by cold biopsy. In the ascending colon there was a 3 mm small sessile polyp removed by cold biopsy. In the transverse colon there was a 6 mm polyp removed by snare polypectomy.~, ascending colon, transverse colon, descending colon, sigmoid colon and rectum appeared normal. Retroflexion was performed in the rectum and no lesions were noted. Patient tolerated the procedure well. Impression: 1. Upper endoscopy revealed mild antral gastritis and 3 small polyps in the duodenum measuring between 3-4 mm in size status post biopsy 2. Colonoscopy revealed 2 mm cecal polyp, 3 mm ascending colon polyp status post cold biopsy and 6 mm transverse colon polyp status post polypectomy Recommendations: Findings of this examination were discussed with the patient as well as his family. He was advised to follow with the biopsy results. If the biopsy reveals adenoma he can have a repeat colonoscopy in 5 years.
[2022-12-15 07:31] VITALS: RESP 16
[2022-12-15 08:07] VITALS: BP 107/56; PULSE 68
== END 2022-12-15 08:08 | disposition home or self-care (01) ==
LOC: ORWHC2ENDO 05:59
PROVIDERS: ATTEND Internal Medicine Gastroenterology
DX: Z12.11 Encounter for screening for malignant neoplasm of colon (principal); D12.2 Benign neoplasm of ascending colon; D12.3 Benign neoplasm of transverse colon; K29.90 Gastroduodenitis, unspecified, without bleeding; D64.9 Anemia, unspecified; K31.7 Polyp of stomach and duodenum; K31.89 Other diseases of stomach and duodenum; Z98.890 Other specified postprocedural states; I11.0 Hypertensive heart disease with heart failure; I50.9 Heart failure, unspecified; E78.5 Hyperlipidemia, unspecified; E11.9 Type 2 diabetes mellitus without complications; Z85.828 Personal history of other malignant neoplasm of skin; H91.90 Unspecified hearing loss, unspecified ear; Z79.4 Long term (current) use of insulin; Z79.84 Long term (current) use of oral hypoglycemic drugs; Z79.899 Other long term (current) drug therapy; Z79.82 Long term (current) use of aspirin
CPT/HCPCS: 88305; 45380; 45385; 43239; J2001; 80053; 80061; 82306; 83735; 84443; 84550; 85025

== ENCOUNTER → 2023-01-07 | Outpatient (CLI) | payer MEDICARE ==
[2023-01-07 08:05] LABS: Basophils # (A) 0.1 k/uL (0-0.2); Basophils % (A) 1 %; Eosinophils # (A) 0.7 k/uL (0-0.7); Eosinophils % (A) 7 %; HGB 12.4 gm/dL (13.0-17.5); Lymphocytes # (A) 2.4 k/uL (1.0-4.8); Lymphocytes % (A) 22 %; MCH 29.2 pg (25.0-35.0); MCHC 33.4 g/dL (31.0-37.0); MCV 87.4 fL (80.0-100.0); Mean Platelet Volume 7.6; Monocytes # (A) 0.6 k/uL (0-1.0); Monocytes % (A) 5 %; Neutrophils # (A) 6.9 k/uL (1.3-7.7); Neutrophils % (A) 63 %; Platelet Count 290 k/uL (150-450); RBC 4.24 m/uL (4.30-5.90); RDW 13.4 % (11.5-15.5)
[2023-01-07 08:35] LABS: Albumin 4.2 g/dL (3.5-5.0); Calcium 9.7 mg/dL (8.4-10.2); Potassium 5.2 mmol/L (3.5-5.1); Total Bilirubin 0.3 mg/dL (0.2-1.3)
[2023-01-07 16:28] LABS: % Iron Saturation 11.68 (15.00-50.00)
== END | disposition home or self-care (01) ==
LOC: LAB 07:17
PROVIDERS: ATTEND Nurse Practitioner Family
DX: D64.9 Anemia, unspecified (principal); E87.5 Hyperkalemia
CPT/HCPCS: 80053; 82728; 83540; 83550; 85025

== ENCOUNTER → 2023-02-11 | Outpatient (CLI) | payer MEDICARE ==
[2023-02-11 15:28] LABS: African American GFR (CKD) 37.4 (60.0-200.0); BUN/Creat Ratio 17.19 Ratio (12.00-20.00); Blood Urea Nitrogen 36.1 mg/dL (9.0-27.0); Calcium 10.2 mg/dL (8.7-10.3); Magnesium 1.7 mg/dL (1.5-2.4); Non-African American GFR(CKD) 32.3 (60.0-200.0); Potassium 4.9 mmol/L (3.5-5.5)
== END | disposition home or self-care (01) ==
LOC: LABWHC1 09:33
PROVIDERS: ATTEND Internal Medicine
DX: N18.32 Chronic kidney disease, stage 3b (principal)
CPT/HCPCS: 36415; 80048; 83735

== ENCOUNTER → 2023-04-30 | Outpatient (CLI) | payer MEDICARE ==
[2023-04-30 13:23] LABS: Basophils # (A) 0.13 X 10*3/uL (0.00-0.10); Eosinophils # (A) 0.98 X 10*3/uL (0.04-0.35); Eosinophils % (A) 7.8 %; HCT 40.2 % (39.6-50.0); HGB 12.9 d/dL (13.0-17.0); Lymphocytes # (A) 2.21 X 10*3/uL (0.90-5.00); Lymphocytes % (A) 17.5 %; MCH 28.9 pg (27.0-32.0); MCHC 32.1 d/dL (32.0-37.0); MCV 89.9 FL (80.0-97.0); Mean Platelet Volume 10.6 FL (9.5-12.2); Monocytes # (A) 0.95 X 10*3/uL (0.20-1.00); Monocytes % (A) 7.5 %; NRBC Per 100 WBC 0 X 10*3/uL (0.00-0.01); Neutrophils # (A) 8.31 X 10*3/uL (1.80-7.70); Neutrophils % (A) 65.8 %; Platelet Count 321 X 10*3/uL (140-440); RBC 4.47 X 10*6/uL (4.40-5.60); RDW 14.4 % (11.5-14.5); WBC 12.63 X 10*3/uL (4.50-10.00)
[2023-04-30 13:41] LABS: Appearance,Urine Clear (Clear); Bilirubin,Urine Negative (Negative); Blood,Urine Negative (Negative); Color,Urine Yellow (Yellow); Ketones,Urine Negative (Negative); Nitrite,Urine Negative (Negative); Specific Gravity,Urine 1.012 (1.001-1.030); Urobilinogen,Urine 0.2 E.U./DL
[2023-04-30 13:44] LABS: % Iron Saturation 17.31 (15.00-50.00); ALT 33 U/L (10-49); AST 31 U/L (14-35); Albumin 4.5 d/dL (3.8-4.9); Albumin/Globulin Ratio 1.61 Ratio (1.60-3.17); Alkaline Phosphatase 83 U/L (41-126); BUN/Creat Ratio 12.58 Ratio (12.00-20.00); Blood Urea Nitrogen 23.9 mg/dL (9.0-27.0); Calcium 10.6 mg/dL (8.7-10.3); Carbon Dioxide 27.9 mmol/L (21.6-31.8); Chloride 96 mmol/L (96-109); Globulin 2.8 d/dL (1.6-3.3); Glucose 171 mg/dL (70-110); Iron 63 UG/DL (65-175); Magnesium 1.9 mg/dL (1.5-2.4); Phosphorus 4.2 mg/dL (2.4-5.1); Potassium 5.8 mmol/L (3.5-5.5); Sodium 138 mmol/L (135-145); Total Bilirubin 0.2 mg/dL (0.3-1.2); Total Iron Binding Capacity 364 UG/DL (228-460); Total Protein 7.3 d/dL (6.2-8.2); Uric Acid 5.9 mg/dL (3.7-8.7)
[2023-04-30 13:47] LABS: Bacteria,Urine None Seen (None Seen)
[2023-04-30 13:59] LABS: Urine Creatinine 39.8 mg/dL (39.0-259.0)
[2023-04-30 14:12] LABS: Hepatitis A Antibody IgM Nonreactive; Hepatitis B Core IgM Nonreactive; Hepatitis B Surface Antigen Nonreactive; Hepatitis C IgG Antibody Nonreactive
== END | disposition home or self-care (01) ==
LOC: LABWHC1 08:18
PROVIDERS: ATTEND Nurse Practitioner Family
DX: N25.81 Secondary hyperparathyroidism of renal origin (principal); N18.32 Chronic kidney disease, stage 3b; D63.1 Anemia in chronic kidney disease; E55.9 Vitamin D deficiency, unspecified; M10.9 Gout, unspecified
CPT/HCPCS: 36415; 80053; 80074; 81001; 82043; 82306; 82570; 82728; 83516; 83540; 83550; 83735; 83883; 83970; 84100; 84550; 85025; 86038; 86160; 86162; 86225; 86255; 86334

== ENCOUNTER 2023-05-06 12:04 | Inpatient (IN) | payer MEDICARE ==
[2023-05-06] MEDS ORDERED: SODIUM CHLORIDE 0.9% 1,000 ML IV ONE (14:19)
[2023-05-06 14:51] LABS: Basophils # (A) 0.1 k/uL (0-0.2); Basophils % (A) 1 %; Eosinophils # (A) 0.7 k/uL (0-0.7); Eosinophils % (A) 6 %; HCT 35.9 % (39.0-53.0); HGB 12.3 gm/dL (13.0-17.5); Lymphocytes # (A) 1.7 k/uL (1.0-4.8); Lymphocytes % (A) 15 %; MCH 29.8 pg (25.0-35.0); MCHC 34.2 g/dL (31.0-37.0); MCV 87.1 fL (80.0-100.0); Mean Platelet Volume 8.2; Monocytes # (A) 0.7 k/uL (0-1.0); Monocytes % (A) 6 %; Neutrophils # (A) 7.5 k/uL (1.3-7.7); Neutrophils % (A) 69 %; Platelet Count 250 k/uL (150-450); RBC 4.13 m/uL (4.30-5.90); RDW 14.6 % (11.5-15.5); WBC 10.9 k/uL (3.8-10.6)
[2023-05-06 15:07] LABS: ALT 25 U/L (4-49); AST 29 U/L (17-59); African American GFR (CKD) 42 (>60 ml/min/1.73 sqM); Albumin 4.1 g/dL (3.5-5.0); Alkaline Phosphatase 65 U/L (38-126); Anion Gap 9 mmol/L; Blood Urea Nitrogen 31 mg/dL (9-20); Calcium 9.8 mg/dL (8.4-10.2); Carbon Dioxide 31 mmol/L (22-30); Chloride 97 mmol/L (98-107); Glucose 156 mg/dL (74-99); Non-African American GFR(CKD) 36 (>60 ml/min/1.73 sqM); Potassium 4.7 mmol/L (3.5-5.1); Sodium 137 mmol/L (137-145); Total Bilirubin 0.4 mg/dL (0.2-1.3)
--- NOTE | 2023-05-06 15:48 | XR ---
EXAMINATION TYPE: XR hand complete LT DATE OF EXAM: 05/06/2023 CLINICAL HISTORY: Rule out osteomyelitis left second digit TECHNIQUE: Frontal, lateral and oblique images of the left hand are obtained. COMPARISON: None. FINDINGS: There is erosive change involving the subungual tuft of the left second digit in addition t o the left third digit subungual tuft region as well. Osteomyelitis is not excluded. There is no evid ence for fracture or bony lesion. Vascular calcifications are noted. IMPRESSION: Osteomyelitis is not excluded. Consider WBC or bone scan for further evaluation.
--- NOTE | 2023-05-06 16:33 | ED ---
General Adult HPI - General Chief complaint: Wound/Laceration Stated complaint: Left Finger Wound Time Seen by Provider: 05/06/23 13:19 Source: patient, RN notes reviewed Mode of arrival: ambulatory Limitations: no limitations - History of Present Illness Initial comments: 63-year-old male with past medical history significant for diabetes mellitus presents to the emergency department with a chief complaint of wound problem. Patient reports that he has had his finger had a chronic wound 4 months. He reports he was seen by his primary care physician who recommended he be evaluated in the emergency department. He denies any fevers, rash, lesions. He denies any known injury or trauma. He has not taken anything for pain. - Related Data Home Medications Medication Instructions Recorded Confirmed Lovastatin [Mevacor] 40 mg PO W/SUPPER 05/01/18 05/06/23 Ferrous Sulfate [Iron (65 MG 325 mg PO DAILY 06/17/22 05/06/23 Elemental)] Furosemide [Lasix] 40 mg PO QAM 08/05/22 05/06/23 hydrALAZINE HCL [Apresoline] 100 mg PO TID 08/05/22 05/06/23 Isosorbide Mononitrate ER [Imdur] 30 mg PO QAM 12/10/22 05/06/23 allopurinoL [Zyloprim] 200 mg PO DAILY 12/10/22 05/06/23 Dapagliflozin Propanediol [Farxiga] 5 mg PO DAILY 05/06/23 05/06/23 Dulaglutide [Trulicity] 1.5 mg SQ WE 05/06/23 05/06/23 Famotidine [Pepcid] 20 mg PO HS PRN 05/06/23 05/06/23 Glimepiride [Amaryl] 8 mg PO DAILY 05/06/23 05/06/23 carvediloL [Coreg] 25 mg PO BID-W/MEALS 05/06/23 05/06/23 metFORMIN HCL ER [Glucophage XR] 1,000 mg PO BID 05/06/23 05/06/23 Allergies Allergy/AdvReac Type Severity Reaction Status Date / Time No Known Allergies Allergy Verified 05/06/23 17:28 Review of Systems ROS Statement: Those systems with pertinent positive or pertinent negative responses have been documented in the HPI. ROS Other: All systems not noted in ROS Statement are negative. Past Medical History Past Medical History: Diabetes Mellitus, Hyperlipidemia History of Any Multi-Drug Resistant Organisms: None Reported Past Surgical History: Orthopedic Surgery, Tonsillectomy Past Anesthesia/Blood Transfusion Reactions: No Reported Reaction Past Psychological History: No Psychological Hx Reported Smoking Status: Never smoker Past Alcohol Use History: None Reported Past Drug Use History: None Reported General Exam - General Exam Comments Initial Comments: General: Alert, in no acute distress Head: atraumatic normocephalic. Eyes PERRL, EOMI intact, mucous membranes moist Respiratory: Lungs clear to auscultation bilaterally Cardiovascular: Rate regular rate and rhythm Abdominal: Soft without guarding or rebound Extremities: Normal inspection with full range of motion and normal capillary refill, left second digit with necrotic-appearing fingertip. Distal neurovascularly intact. 2+ radial pulses. Neuroogic: alert and oriented 3, CN II-XII intact, able to ambulate with steady gait Skin: warm dry and intact with normal color Limitations: no limitations Course Vital Signs 05/06/23 05/06/23 12:14 16:30 Temperature 99.2 F 99.3 F Pulse Rate 79 82 Respiratory 20 20 Rate Blood Pressure 140/84 137/80 O2 Sat by Pulse 96 97 Oximetry Medical Decision Making - Medical Decision Making Was pt. sent in by a medical professional or institution (, PA, BAKERY SALES CLERK, urgent care, hospital, or penitentiary...) When possible be specific @ -[No] Did you speak to anyone other than the patient for history (EMS, parent, family, police, friend...)? What history was obtained from this source @ -[No] Did you review nursing and triage notes (agree or disagree)? Why? @ -[I reviewed and agree with nursing and triage notes] Were old charts reviewed (outside hosp., previous admission, EMS record, old EKG, old radiological studies, urgent care reports/EKG's, penitentiary records)? Report findings @ -[No old charts were reviewed] Differential Diagnosis (chest pain, altered mental status, abdominal pain women, abdominal pain men, vaginal bleeding, weakness, fever, dyspnea, syncope, headache, dizziness, GI bleed, back pain, seizure, CVA, palpatations, mental health, musculoskeletal)? @ -[not applicable] EKG interpreted by me (3pts min.). @ -[As above] X-rays interpreted by me (1pt min.). @ -X-ray of left hand cannot exclude osteomyelitis CT interpreted by me (1pt min.). @ -[None done] U/S interpreted by me (1pt. min.). @ -[None done] What testing was considered but not performed or refused? (CT, X-rays, U/S, labs)? Why? @ -[None] What meds were considered but not given or refused? Why? @ -[None] Did you discuss the management of the patient with other professionals (professionals i.e. , PA, BAKERY SALES CLERK, lab, RT, psych nurse, social insurance adviser, road design draftsperson, teacher, identification officer, correctional casework specialist)? Give summary @ -[No] Was smoking cessation discussed for >3mins.? @ -[No] Was critical care preformed (if so, how long)? @ -[No] Were there social determinants of health that impacted care today? How? (Homelessness, low income, unemployed, alcoholism, drug addiction, transportation, low edu. Level, literacy, decrease access to med. care, skilled nursing, rehab)? @ -[No] Was there de-escalation of care discussed even if they declined (Discuss DNR or withdrawal of care, Hospice)? DNR status @ -[No] What co-morbidities impacted this encounter? (DM, HTN, Smoking, COPD, CAD, Cancer, CVA, ARF, Chemo, Hep., AIDS, mental health diagnosis, sleep apnea, morbid obesity)? @ -[None] Was patient admitted / discharged? Hospital course, mention meds given and route, prescriptions, significant lab abnormalities, going to OR and other pertinent info. @ -Admission. This is a 63-year-old male with a past medical history significant for diabetes mellitus who presents to the emergency department for wound problem. Patient had a thorough history and physical exam performed while in the ED. Left second digit with what appears necrotic tissue at the distal aspect. 2+ radial pulses. Patient had lab work and imaging which revealed: WBC count 10.2. Blood cultures are pending. X-ray cannot exclude osteomyelitis. I discussed the results in detail with the patient verbalized understanding and all questions and concerns were addressed. He is agreeable for the plan of admission. Case discussed with Dr. Lewis, [facility] who agrees and accepts the patient for further observation with recommend consult to infectious disease. Kefzol Was started. Case discussed with Dr. Orozco P who agrees with plan of care Undiagnosed new problem with uncertain prognosis? @ -[No] Drug Therapy requiring intensive monitoring for toxicity (Heparin, Nitro, Insulin, Cardizem)? @ -[No] Were any procedures done? @ -[No] Diagnosis/symptom? @ -Left wound of 2nd left digit - Osteomyelitis - Hx of Diabetes Mellitus Acute, or Chronic, or Acute on Chronic? @ -Acute on Chronic Uncomplicated (without systemic symptoms) or Complicated (systemic symptoms)? @ -Uncomplicated Side effects of treatment? @ -[No] Exacerbation, Progression, or Severe Exacerbation? @ -[No] Poses a threat to life or bodily function? How? (Chest pain, USA, SC, pneumonia, PE, COPD, DKA, ARF, appy, cholecystitis, CVA, Diverticulitis, Homicidal, Suicidal, threat to staff... and all critical care pts) @ -Moderate likelihood - Lab Data Result diagrams: 05/06/23 14:39 05/06/23 14:39 Lab Results 05/06/23 05/06/23 05/06/23 Range/Units 14:39 14:39 14:39 WBC 10.9 H (3.8-10.6) k/uL RBC 4.13 L (4.30-5.90) m/uL Hgb 12.3 L (13.0-17.5) gm/dL Hct 35.9 L (39.0-53.0) % MCV 87.1 (80.0-100.0) fL MCH 29.8 (25.0-35.0) pg MCHC 34.2 (31.0-37.0) g/dL RDW 14.6 (11.5-15.5) % Plt Count 250 (150-450) k/uL MPV 8.2 Neutrophils % 69 % Lymphocytes % 15 % Monocytes % 6 % Eosinophils % 6 % Basophils % 1 % Neutrophils # 7.5 (1.3-7.7) k/uL Lymphocytes # 1.7 (1.0-4.8) k/uL Monocytes # 0.7 (0-1.0) k/uL Eosinophils # 0.7 (0-0.7) k/uL Basophils # 0.1 (0-0.2) k/uL Sodium 137 (137-145) mmol/L Potassium 4.7 (3.5-5.1) mmol/L Chloride 97 L (98-107) mmol/L Carbon Dioxide 31 H (22-30) mmol/L Anion Gap 9 mmol/L BUN 31 H (9-20) mg/dL Creatinine 1.91 H (0.66-1.25) mg/dL Est GFR (CKD-EPI)AfAm 42 (>60 ml/min/1.73 sqM) Est GFR (CKD-EPI)NonAf 36 (>60 ml/min/1.73 sqM) Glucose 156 H (74-99) mg/dL Plasma Lactic Acid Portillo 2.0 (0.7-2.0) mmol/L Calcium 9.8 (8.4-10.2) mg/dL Total Bilirubin 0.4 (0.2-1.3) mg/dL AST 29 (17-59) U/L ALT 25 (4-49) U/L Alkaline Phosphatase 65 (38-126) U/L C-Reactive Protein (<1.0) mg/dL Total Protein 7.0 (6.3-8.2) g/dL Albumin 4.1 (3.5-5.0) g/dL 05/06/23 Range/Units 14:49 WBC (3.8-10.6) k/uL RBC (4.30-5.90) m/uL Hgb (13.0-17.5) gm/dL Hct (39.0-53.0) % MCV (80.0-100.0) fL MCH (25.0-35.0) pg MCHC (31.0-37.0) g/dL RDW (11.5-15.5) % Plt Count (150-450) k/uL MPV Neutrophils % % Lymphocytes % % Monocytes % % Eosinophils % % Basophils % % Neutrophils # (1.3-7.7) k/uL Lymphocytes # (1.0-4.8) k/uL Monocytes # (0-1.0) k/uL Eosinophils # (0-0.7) k/uL Basophils # (0-0.2) k/uL Sodium (137-145) mmol/L Potassium (3.5-5.1) mmol/L Chloride (98-107) mmol/L Carbon Dioxide (22-30) mmol/L Anion Gap mmol/L BUN (9-20) mg/dL Creatinine (0.66-1.25) mg/dL Est GFR (CKD-EPI)AfAm (>60 ml/min/1.73 sqM) Est GFR (CKD-EPI)NonAf (>60 ml/min/1.73 sqM) Glucose (74-99) mg/dL Plasma Lactic Acid Portillo (0.7-2.0) mmol/L Calcium (8.4-10.2) mg/dL Total Bilirubin (0.2-1.3) mg/dL AST (17-59) U/L ALT (4-49) U/L Alkaline Phosphatase (38-126) U/L C-Reactive Protein 3.2 H (<1.0) mg/dL Total Protein (6.3-8.2) g/dL Albumin (3.5-5.0) g/dL Disposition Clinical Impression: Osteomyelitis, Diabetes Disposition: ADMITTED IP TO THIS HOSP Condition: Stable Time of Disposition: 16:33
[2023-05-06] MEDS ORDERED: NALOXONE 0.4 MG/ML 1 ML VIAL IV PRN (16:34)
[2023-05-06] MEDS ORDERED: ACETAMINOPHEN TAB 325 MG TAB PO PRN (16:34)
[2023-05-06] MEDS: SODIUM CHLORIDE 0.9% 1,000 ML IV SCH (16:48)
--- NOTE | 2023-05-06 19:23 | HP ---
HISTORY AND PHYSICAL CHIEF COMPLAINT: Left finger wound. HISTORY OF PRESENT ILLNESS: This is a 63-year-old gentleman with a past medical history of diabetes mellitus and hyperlipidemia, was complaining of left finger wound for about 4 months. There is no history of any fever, rigor, or chills at this time. PAST MEDICAL HISTORY: Diabetes mellitus and hyperlipidemia. HOME MEDICATIONS: Reviewed, metformin. Doses and rest of the medications are reviewed. They are not confirmed. ALLERGIES: None. FAMILY HISTORY: No history of heart disease or strokes in the family. SOCIAL HISTORY: No history of smoking or alcohol. REVIEW OF SYSTEMS: Fourteen-point review is negative except as mentioned earlier. PHYSICAL EXAMINATION: VITAL SIGNS: Pulse is 79, blood pressure 140/85, respirations 20. HEENT: Conjunctivae are normal. NECK: No jugular venous distention. CARDIOVASCULAR: S1 and S2 muffled. RESPIRATORY: Breath sounds diminished at the bases. ABDOMEN: Soft. LEGS: No edema. NERVOUS SYSTEM: Nonfocal. HANDS: Examination of the left hand second digit, some atrophy and infection. Some tenderness present. SKIN: No ulcers or rashes. JOINTS: No active deforming arthropathy. LABORATORY DATA: Reviewed. ASSESSMENT: 1. Left finger infection. Rule out osteomyelitis or peripheral vascular disease. 2. Chronic kidney disease. 3. Anemia. 4. Diabetes mellitus, type 2. 5. Hyperlipidemia. RECOMMENDATIONS AND DISCUSSION: In this 63-year-old gentleman presented with multiple complex medical issues, we will monitor the patient closely. Recommend antibiotics and Infectious Disease evaluation and also recommend Nephrology evaluation. We will also do the serum testing for scleroderma. Empiric antibiotics initiated. Further recommendations to follow. IV fluids. See orders for the details. Prognosis is guarded. MMODL / IJN: [id number] /
[2023-05-06] MEDS: hydrALAZINE HCL 50 MG TAB PO SCH (20:06)
[2023-05-06 20:07] LABS: Glucose,Whole Blood 157 mg/dL (70-110)
[2023-05-06] MEDS: INSULIN ASPART (NovoLOG) 100 UNIT/ML VIAL SQ SCH (21:36)
[2023-05-07] MEDS: SODIUM CHLORIDE 0.9% 1,000 ML IV SCH (05:34)
[2023-05-07 06:01] LABS: Scleroderma SC-70 Ab <0.2 AI
[2023-05-07 07:22] LABS: Glucose,Whole Blood 82 mg/dL (70-110)
[2023-05-07] MEDS: INSULIN ASPART (NovoLOG) 100 UNIT/ML VIAL SQ SCH ×4 (07:32→21:10)
--- NOTE | 2023-05-07 09:11 | P.GSCN ---
History of Present Illness Consult date: 05/07/23 Reason for Consult: Nonhealing wound left index finger. History of present illness: Patient is a 63-year-old male who was admitted to the hospital after being evaluated in the emergency department due to a wound of the distal tip of the index finger of the left upper extremity. According to the patient this wound has been present for at least 2 months. A few weeks ago he did lose the nail of this digit. He denies any trauma or other known causative event. He does not complain of any pain nor does he complain of chills or fevers. No previous similar symptoms. Past Medical History Past Medical History: Diabetes Mellitus, Hyperlipidemia History of Any Multi-Drug Resistant Organisms: None Reported Past Surgical History: Orthopedic Surgery, Tonsillectomy Additional Past Surgical History / Comment(s): tip of rt middle finger removed from work injury Past Anesthesia/Blood Transfusion Reactions: No Reported Reaction Past Psychological History: No Psychological Hx Reported Smoking Status: Never smoker Past Alcohol Use History: None Reported Past Drug Use History: None Reported Medications and Allergies Home Medications Medication Instructions Recorded Confirmed Type Lovastatin [Mevacor] 40 mg PO W/SUPPER 05/01/18 05/06/23 History Ferrous Sulfate [Iron (65 MG 325 mg PO DAILY 06/17/22 05/06/23 History Elemental)] Furosemide [Lasix] 40 mg PO QAM 08/05/22 05/06/23 History hydrALAZINE HCL [Apresoline] 100 mg PO TID 08/05/22 05/06/23 History Isosorbide Mononitrate ER [Imdur] 30 mg PO QAM 12/10/22 05/06/23 History allopurinoL [Zyloprim] 200 mg PO DAILY 12/10/22 05/06/23 History Dapagliflozin Propanediol [Farxiga] 5 mg PO DAILY 05/06/23 05/06/23 History Dulaglutide [Trulicity] 1.5 mg SQ WE 05/06/23 05/06/23 History Famotidine [Pepcid] 20 mg PO HS PRN 05/06/23 05/06/23 History Glimepiride [Amaryl] 8 mg PO DAILY 05/06/23 05/06/23 History carvediloL [Coreg] 25 mg PO BID-W/MEALS 05/06/23 05/06/23 History metFORMIN HCL ER [Glucophage XR] 1,000 mg PO BID 05/06/23 05/06/23 History Allergies Allergy/AdvReac Type Severity Reaction Status Date / Time No Known Allergies Allergy Verified 05/06/23 17:28 Surgical - Exam Osteopathic Statement: *. No significant issues noted on an osteopathic structural exam other than those noted in the History and Physical/Consult. Vital Signs Temp Pulse Resp BP Pulse Ox 99.2 F 79 20 140/84 96 05/06/23 12:14 05/06/23 12:14 05/06/23 12:14 05/06/23 12:14 05/06/23 12:14 Patient was awake, alert cooperative in no apparent distress. Neck: No carotid bruit or palpable adenopathy noted. Heart: Regular rate and rhythm without murmur. Lungs: Clear auscultation bilaterally. Extremities: Axillary, brachial and radial as well as femoral, popliteal and posterior tibial pulses are intact bilaterally. Dry gangrenous changes are identified at the distal tip of the index finger on the left. The hand is fully functional. There is no evidence of cellulitis or other infectious issue ongoing. Results - Labs 05/06/23 14:39 05/06/23 14:39 Abnormal Lab Results - Last 24 Hours (Table) 05/06/23 05/06/23 05/06/23 Range/Units 14:39 14:39 14:39 WBC 10.9 H (3.8-10.6) k/uL RBC 4.13 L (4.30-5.90) m/uL Hgb 12.3 L (13.0-17.5) gm/dL Hct 35.9 L (39.0-53.0) % ESR 49 H (0-15) mm/hr Chloride 97 L (98-107) mmol/L Carbon Dioxide 31 H (22-30) mmol/L BUN 31 H (9-20) mg/dL Creatinine 1.91 H (0.66-1.25) mg/dL Glucose 156 H (74-99) mg/dL POC Glucose (mg/dL) (70-110) mg/dL C-Reactive Protein (<1.0) mg/dL 05/06/23 05/06/23 Range/Units 14:49 20:05 WBC (3.8-10.6) k/uL RBC (4.30-5.90) m/uL Hgb (13.0-17.5) gm/dL Hct (39.0-53.0) % ESR (0-15) mm/hr Chloride (98-107) mmol/L Carbon Dioxide (22-30) mmol/L BUN (9-20) mg/dL Creatinine (0.66-1.25) mg/dL Glucose (74-99) mg/dL POC Glucose (mg/dL) 157 H (70-110) mg/dL C-Reactive Protein 3.2 H (<1.0) mg/dL Diabetes panel 05/06/23 Range/Units 14:39 Sodium 137 (137-145) mmol/L Potassium 4.7 (3.5-5.1) mmol/L Chloride 97 L (98-107) mmol/L Carbon Dioxide 31 H (22-30) mmol/L BUN 31 H (9-20) mg/dL Creatinine 1.91 H (0.66-1.25) mg/dL Glucose 156 H (74-99) mg/dL Calcium 9.8 (8.4-10.2) mg/dL AST 29 (17-59) U/L ALT 25 (4-49) U/L Alkaline Phosphatase 65 (38-126) U/L Total Protein 7.0 (6.3-8.2) g/dL Albumin 4.1 (3.5-5.0) g/dL Calcium panel 05/06/23 Range/Units 14:39 Calcium 9.8 (8.4-10.2) mg/dL Albumin 4.1 (3.5-5.0) g/dL Pituitary panel 05/06/23 Range/Units 14:39 Sodium 137 (137-145) mmol/L Potassium 4.7 (3.5-5.1) mmol/L Chloride 97 L (98-107) mmol/L Carbon Dioxide 31 H (22-30) mmol/L BUN 31 H (9-20) mg/dL Creatinine 1.91 H (0.66-1.25) mg/dL Glucose 156 H (74-99) mg/dL Calcium 9.8 (8.4-10.2) mg/dL Adrenal panel 05/06/23 Range/Units 14:39 Sodium 137 (137-145) mmol/L Potassium 4.7 (3.5-5.1) mmol/L Chloride 97 L (98-107) mmol/L Carbon Dioxide 31 H (22-30) mmol/L BUN 31 H (9-20) mg/dL Creatinine 1.91 H (0.66-1.25) mg/dL Glucose 156 H (74-99) mg/dL Calcium 9.8 (8.4-10.2) mg/dL Total Bilirubin 0.4 (0.2-1.3) mg/dL AST 29 (17-59) U/L ALT 25 (4-49) U/L Alkaline Phosphatase 65 (38-126) U/L Total Protein 7.0 (6.3-8.2) g/dL Albumin 4.1 (3.5-5.0) g/dL - Imaging Additional studies: Results of left hand x-ray reviewed. Assessment and Plan Assessment: 1: Chronic wound distal tuft left second finger. 2: Greater than 30 year history of diabetes mellitus. 3: Dyslipidemia. 4: Possible small vessel disease upper extremity. Plan: 1: We'll obtain arterial Doppler study of the upper extremities with digital pressures. 2: No evidence of ongoing infection or advancement in ischemia. 3: Patient may benefit from amputation of the distal tuft of the left index finger. 4: No plan for vascular surgical intervention. Time with Patient: Less than 30
[2023-05-07 10:16] LABS: Basophils # (A) 0.09 X 10*3/uL (0.00-0.10); Basophils % (A) 0.8 %; Eosinophils # (A) 0.77 X 10*3/uL (0.04-0.35); Eosinophils % (A) 6.6 %; HCT 36.6 % (39.6-50.0); HGB 11.9 d/dL (13.0-17.0); Lymphocytes # (A) 2.05 X 10*3/uL (0.90-5.00); Lymphocytes % (A) 17.6 %; MCH 28.5 pg (27.0-32.0); MCHC 32.5 d/dL (32.0-37.0); MCV 87.8 FL (80.0-97.0); Mean Platelet Volume 10.5 FL (9.5-12.2); Monocytes # (A) 0.98 X 10*3/uL (0.20-1.00); Monocytes % (A) 8.4 %; NRBC Per 100 WBC 0 X 10*3/uL (0.00-0.01); Neutrophils # (A) 7.69 X 10*3/uL (1.80-7.70); Neutrophils % (A) 66.1 %; Platelet Count 273 X 10*3/uL (140-440); RBC 4.17 X 10*6/uL (4.40-5.60); RDW 14.3 % (11.5-14.5); WBC 11.64 X 10*3/uL (4.50-10.00)
[2023-05-07] MEDS: hydrALAZINE HCL 50 MG TAB PO SCH ×3 (10:23→21:11)
[2023-05-07 11:46] LABS: Glucose,Whole Blood 200 mg/dL (70-110)
[2023-05-07 11:59] LABS: BUN/Creat Ratio 12.56 Ratio (12.00-20.00); Blood Urea Nitrogen 22.6 mg/dL (9.0-27.0); Calcium 10.1 mg/dL (8.7-10.3); Carbon Dioxide 26.7 mmol/L (21.6-31.8); Chloride 99 mmol/L (96-109); Glucose 77 mg/dL (70-110); Potassium 4.4 mmol/L (3.5-5.5); Sodium 139 mmol/L (135-145)
[2023-05-07] MEDS ORDERED: FAMOTIDINE 20 MG TAB PO PRN (12:08)
[2023-05-07] MEDS: amLODIPine 10 MG TAB PO SCH (12:50)
--- NOTE | 2023-05-07 13:44 | PN ---
PROGRESS NOTE DATE OF SERVICE: 05/07/2023 SUBJECTIVE: This is a 63 gentleman admitted with left index finger wound is being evaluated for arterial insufficiency, microvascular ischemia is also possible. No chest pain, no palpitation. OBJECTIVE: VITAL SIGNS: Pulse 81, blood pressure 160/83, respirations 18. CHEST: Clear to auscultation. CARDIOVASCULAR: S1, S2. ABDOMEN: Soft. MUSCULOSKELETAL: Osteomyelitis infection. LABORATORY DATA: Reviewed. ASSESSMENT: 1. Left finger infection, rule out osteomyelitis and peripheral arterial disease. 2. Chronic kidney disease. 3. Anemia. 4. Diabetes mellitus, type 2. 5. Hyperlipidemia. RECOMMENDATIONS: Recommended to continue current medications. Continue symptomatic treatment. Otherwise, I would recommend repeat labs and I will add Norvasc to the current regimen. Further recommendations to follow. MMODL / IJN: [id number] /
--- NOTE | 2023-05-07 14:02 | P.NPCON ---
History of Present Illness - Reason for Consult acute renal failure - History of Present Illness Patient is a 63-year-old male with history of type 2 diabetes, hypertension, hyperlipidemia who was admitted to the hospital with with complaints of wound on his left index finger. Patient has had this wound for about 2 months but has significantly gotten worse recently. No history of fever or chills Serum creatinine was 1.9 mg/dL on admission. It is 1.8 today. Patient does have underlying chronic kidney disease, NKF stage III B with baseline creatinine around 1.9-2 mg/dL. Etiology is nephrosclerosis. Blood pressure has not been low. Maintained on metformin and farxiga as outpatient. No urinary symptoms. Review of Systems As per HPI. Past Medical History Past Medical History: Diabetes Mellitus, Hyperlipidemia History of Any Multi-Drug Resistant Organisms: None Reported Past Surgical History: Orthopedic Surgery, Tonsillectomy Additional Past Surgical History / Comment(s): tip of rt middle finger removed from work injury Past Anesthesia/Blood Transfusion Reactions: No Reported Reaction Past Psychological History: No Psychological Hx Reported Smoking Status: Never smoker Past Alcohol Use History: None Reported Past Drug Use History: None Reported Medications and Allergies Home Medications Medication Instructions Recorded Confirmed Type Lovastatin [Mevacor] 40 mg PO W/SUPPER 05/01/18 05/06/23 History Ferrous Sulfate [Iron (65 MG 325 mg PO DAILY 06/17/22 05/06/23 History Elemental)] Furosemide [Lasix] 40 mg PO QAM 08/05/22 05/06/23 History hydrALAZINE HCL [Apresoline] 100 mg PO TID 08/05/22 05/06/23 History Isosorbide Mononitrate ER [Imdur] 30 mg PO QAM 12/10/22 05/06/23 History allopurinoL [Zyloprim] 200 mg PO DAILY 12/10/22 05/06/23 History Dapagliflozin Propanediol [Farxiga] 5 mg PO DAILY 05/06/23 05/06/23 History Dulaglutide [Trulicity] 1.5 mg SQ WE 05/06/23 05/06/23 History Famotidine [Pepcid] 20 mg PO HS PRN 05/06/23 05/06/23 History Glimepiride [Amaryl] 8 mg PO DAILY 05/06/23 05/06/23 History carvediloL [Coreg] 25 mg PO BID-W/MEALS 05/06/23 05/06/23 History metFORMIN HCL ER [Glucophage XR] 1,000 mg PO BID 05/06/23 05/06/23 History Allergies Allergy/AdvReac Type Severity Reaction Status Date / Time No Known Allergies Allergy Verified 05/06/23 17:28 Physical Exam Vitals: Vital Signs Temp Pulse Pulse Resp BP BP Pulse Ox 05/07/23 11:15 98.4 F 77 16 187/98 95 05/07/23 06:56 98.3 F 81 16 165/83 91 L 05/07/23 02:23 98.8 F 82 16 158/75 93 L 05/06/23 20:04 188/97 05/06/23 19:33 98.6 F 80 18 186/103 93 L 05/06/23 17:30 99.3 F 81 20 147/79 98 05/06/23 17:09 97.9 F 74 14 184/90 97 05/06/23 16:30 99.3 F 82 20 137/80 97 Intake and Output 05/06/23 05/07/23 05/07/23 22:59 06:59 14:59 Other: # Voids 1 Weight 93.894 kg Awake, comfortable, in no acute distress Examination of the heart S1 and S2 Examination of the lungs bilateral breath sounds are heard Abdomen is soft nontender Examination of lower extremity shows no significant edema Left index finger is dressed MEDICAL AFFAIRS SPECIALIST exam grossly intact Results - Lab Results Most recent lab results Calcium 10.1 mg/dL (8.7-10.3) 05/07/23 05:39 05/07/23 05:39 05/07/23 05:39 Assessment and Plan Assessment: 1. Chronic kidney disease NKF stage IIIB secondary to nephrosclerosis. Baseline creatinine around 1.9-2 mg/dL. 2. Left index finger wound which is chronic. Being followed by vascular surgery. 3. Type 2 diabetes maintained on farxiga and metformin as outpatient 4. Hypertension with CK D, uncontrolled. DC IV fluids Plan: DC IV fluids. Continue hydralazine and amlodipine and Coreg for blood pressure control. Can increase farxiga 10 mg daily. Continue with Lasix Repeat labs in a.m. Consider adding low-dose angiotensin receptor blockers down the road. Thank you for the consultation. We will continue to follow the patient with you during his hospitalization
[2023-05-07] MEDS ORDERED: NON FORMULARY DRUG (Hydralazine Hcl [Apresoline] 100 MG Tablet) PO SCH (16:00)
[2023-05-07] MEDS: ATORVASTATIN 10 MG TAB PO SCH (16:44)
[2023-05-07 17:19] LABS: Glucose,Whole Blood 212 mg/dL (70-110)
[2023-05-07] MEDS ORDERED: NON FORMULARY DRUG (Carvedilol [Coreg] 25 MG Tablet) PO SCH (17:30)
[2023-05-07 20:06] LABS: Glucose,Whole Blood 251 mg/dL (70-110)
[2023-05-07] MEDS: metFORMIN 500 MG TAB PO SCH (21:11)
[2023-05-07] MEDS: carvediloL 12.5 MG TAB PO SCH (21:16)
--- NOTE | 2023-05-07 22:01 | P.CONS ---
History of Present Illness - Reason for Consult Consult date: 05/07/23 - History of Present Illness Patient is a 63-year-old male with a past medical history significant for diabetes mellitus hyperlipidemia did have a problem with the nonhealing wound to the right index finger that has been there for almost 4 months now , patient is not very clear how it started initially however has been treated in the outpatient setting by his primary care physician patient apparently was evaluated in the office yesterday and there x-ray machine was not working and his PCP was concerned for possible cellulitis for the patient was advised to go to the hospital patient denies having any fever or any chills, has been complaining of discoloration of the tip of the index finger with some swelling and redness to the distal phalanx however did not have an open wound or any drainage patient did have a x-ray of the hand we did shows gross injuries involving the tuft of the left second digit concerning for possible osteomyelitis patient on presentation to the hospital did have a low-grade fever of 99.2 no fever have recorded subsequently he did have white count 8.9 elevated sed rate creatinine is 1.8 CRP 3.0 blood cultures done currently pending patient received a dose of cefazolin in the ER subsequently has been admitted to hospital infectious disease was consulted for further management of antibiotic therepy Past Medical History Past Medical History: Diabetes Mellitus, Hyperlipidemia History of Any Multi-Drug Resistant Organisms: None Reported Past Surgical History: Orthopedic Surgery, Tonsillectomy Additional Past Surgical History / Comment(s): tip of rt middle finger removed from work injury Past Anesthesia/Blood Transfusion Reactions: No Reported Reaction Past Psychological History: No Psychological Hx Reported Smoking Status: Never smoker Past Alcohol Use History: None Reported Past Drug Use History: None Reported Medications and Allergies Home Medications Medication Instructions Recorded Confirmed Type Lovastatin [Mevacor] 40 mg PO W/SUPPER 05/01/18 05/06/23 History Ferrous Sulfate [Iron (65 MG 325 mg PO DAILY 06/17/22 05/06/23 History Elemental)] Furosemide [Lasix] 40 mg PO QAM 08/05/22 05/06/23 History hydrALAZINE HCL [Apresoline] 100 mg PO TID 08/05/22 05/06/23 History Isosorbide Mononitrate ER [Imdur] 30 mg PO QAM 12/10/22 05/06/23 History allopurinoL [Zyloprim] 200 mg PO DAILY 12/10/22 05/06/23 History Dapagliflozin Propanediol [Farxiga] 5 mg PO DAILY 05/06/23 05/06/23 History Dulaglutide [Trulicity] 1.5 mg SQ WE 05/06/23 05/06/23 History Famotidine [Pepcid] 20 mg PO HS PRN 05/06/23 05/06/23 History Glimepiride [Amaryl] 8 mg PO DAILY 05/06/23 05/06/23 History carvediloL [Coreg] 25 mg PO BID-W/MEALS 05/06/23 05/06/23 History metFORMIN HCL ER [Glucophage XR] 1,000 mg PO BID 05/06/23 05/06/23 History Allergies Allergy/AdvReac Type Severity Reaction Status Date / Time No Known Allergies Allergy Verified 05/06/23 17:28 Physical Exam Vitals: Vital Signs Temp Pulse Resp BP Pulse Ox 05/07/23 18:47 98.1 F 89 18 145/79 95 05/07/23 16:44 153/78 05/07/23 11:15 98.4 F 77 16 187/98 95 05/07/23 06:56 98.3 F 81 16 165/83 91 L 05/07/23 02:23 98.8 F 82 16 158/75 93 L Intake and Output 05/07/23 05/07/23 05/07/23 06:59 14:59 22:59 Other: # Voids 1 Results CBC & Chem 7: 05/08/23 05:54 05/08/23 05:54 Labs: Abnormal Lab Results - Last 24 Hours (Table) 05/07/23 05/07/23 05/07/23 Range/Units 05:39 05:39 11:19 WBC 11.64 H (4.50-10.00) X 10*3/uL RBC 4.17 L (4.40-5.60) X 10*6/uL Hgb 11.9 L (13.0-17.0) d/dL Hct 36.6 L (39.6-50.0) % Eosinophils # 0.77 H (0.04-0.35) X 10*3/uL ESR (0-15) mm/hr Anion Gap 13.30 H (4.00-12.00) mmol/L Creatinine 1.8 H (0.6-1.5) mg/dL Est GFR (CKD-EPI) 42 L (>=60) POC Glucose (mg/dL) 200 H (70-110) mg/dL C-Reactive Protein (<1.0) mg/dL 05/07/23 05/07/23 05/07/23 Range/Units 12:42 12:42 17:18 WBC (4.50-10.00) X 10*3/uL RBC (4.40-5.60) X 10*6/uL Hgb (13.0-17.0) d/dL Hct (39.6-50.0) % Eosinophils # (0.04-0.35) X 10*3/uL ESR 50 H (0-15) mm/hr Anion Gap (4.00-12.00) mmol/L Creatinine (0.6-1.5) mg/dL Est GFR (CKD-EPI) (>=60) POC Glucose (mg/dL) 212 H (70-110) mg/dL C-Reactive Protein 3.0 H (<1.0) mg/dL 05/07/23 Range/Units 20:05 WBC (4.50-10.00) X 10*3/uL RBC (4.40-5.60) X 10*6/uL Hgb (13.0-17.0) d/dL Hct (39.6-50.0) % Eosinophils # (0.04-0.35) X 10*3/uL ESR (0-15) mm/hr Anion Gap (4.00-12.00) mmol/L Creatinine (0.6-1.5) mg/dL Est GFR (CKD-EPI) (>=60) POC Glucose (mg/dL) 251 H (70-110) mg/dL C-Reactive Protein (<1.0) mg/dL Assessment and Plan Plan: 1patient with right index finger distal phalanx discoloration and some cellulitis abnormality on the x-ray suspicious for possible osteomyelitis in this patient underlying diabetes and symptom has been going on for almost 4 months. 2patient benefit from evaluation by hand surgery for possible debridement and deep culture that will determine his discharge antibiotics. 3we will start the patient on Unasyn 3 g every 6 hours while waiting for the work-up to be completed We will follow on clinical condition and cultures to further adjust medication if needed Thank you for this consultation we will follow the patient along with you Dictation was produced using [employer] dictation software. please excuse any grammatical, word or spelling errors. Time with Patient: Greater than 30
[2023-05-08] MEDS: AMPICILLIN-SULBACTAM 3 GM in SODIUM CHLORIDE 0.9% 100 ML IVPB SCH ×4 (00:14→20:56)
[2023-05-08 06:57] LABS: Glucose,Whole Blood 175 mg/dL (70-110)
[2023-05-08] MEDS: INSULIN ASPART (NovoLOG) 100 UNIT/ML VIAL SQ SCH ×4 (08:42→20:57)
[2023-05-08] MEDS: FUROSEMIDE 40 MG TAB PO SCH (09:12)
[2023-05-08] MEDS: carvediloL 12.5 MG TAB PO SCH ×2 (09:12→16:35)
[2023-05-08] MEDS: GLIMEPIRIDE 4 MG TAB PO SCH (09:12)
[2023-05-08] MEDS: ISOSORBIDE MONONITRATE ER 30 MG TAB.ER.24H PO SCH (09:12)
[2023-05-08] MEDS: FERROUS SULFATE 325 MG TAB PO SCH (09:12)
[2023-05-08] MEDS: DAPAGLIFLOZIN PROPANEDIOL 5 MG TABLET PO SCH (09:12)
[2023-05-08] MEDS: allopurinoL 100 MG TAB PO SCH (09:12)
[2023-05-08] MEDS: amLODIPine 10 MG TAB PO SCH (09:13)
[2023-05-08] MEDS: hydrALAZINE HCL 50 MG TAB PO SCH ×3 (09:13→20:56)
[2023-05-08] MEDS: metFORMIN 500 MG TAB PO SCH ×2 (09:13→20:57)
[2023-05-08 10:46] LABS: Basophils # (A) 0.09 X 10*3/uL (0.00-0.10); Basophils % (A) 0.7 %; Eosinophils # (A) 0.75 X 10*3/uL (0.04-0.35); Eosinophils % (A) 5.8 %; HCT 37.7 % (39.6-50.0); HGB 12.3 d/dL (13.0-17.0); Lymphocytes # (A) 2.17 X 10*3/uL (0.90-5.00); Lymphocytes % (A) 16.7 %; MCH 29.1 pg (27.0-32.0); MCHC 32.6 d/dL (32.0-37.0); MCV 89.3 FL (80.0-97.0); Mean Platelet Volume 10.4 FL (9.5-12.2); Monocytes % (A) 7.7 %; NRBC Per 100 WBC 0 X 10*3/uL (0.00-0.01); Neutrophils # (A) 8.92 X 10*3/uL (1.80-7.70); Neutrophils % (A) 68.8 %; Platelet Count 288 X 10*3/uL (140-440); RBC 4.22 X 10*6/uL (4.40-5.60); RDW 14.5 % (11.5-14.5); WBC 12.97 X 10*3/uL (4.50-10.00)
[2023-05-08 11:17] LABS: Glucose,Whole Blood 185 mg/dL (70-110)
[2023-05-08 12:19] LABS: BUN/Creat Ratio 10.78 Ratio (12.00-20.00); Blood Urea Nitrogen 19.4 mg/dL (9.0-27.0); Calcium 9.3 mg/dL (8.7-10.3); Carbon Dioxide 25.8 mmol/L (21.6-31.8); Chloride 101 mmol/L (96-109); Glucose 132 mg/dL (70-110); Potassium 4.6 mmol/L (3.5-5.5); Sodium 139 mmol/L (135-145)
--- NOTE | 2023-05-08 12:21 | P.PN ---
Subjective Patient is seen for follow-up for chronic kidney disease. Renal function is stable. Admitted with wound on left index finger. This is chronic No significant complaints today. 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 - Labs CBC & Chem 7: 05/08/23 05:54 05/07/23 05:39 Labs: Abnormal Lab Results - Last 24 Hours (Table) 05/07/23 05/07/23 05/07/23 Range/Units 12:42 12:42 17:18 WBC (4.50-10.00) X 10*3/uL RBC (4.40-5.60) X 10*6/uL Hgb (13.0-17.0) d/dL Hct (39.6-50.0) % Neutrophils # (1.80-7.70) X 10*3/uL Eosinophils # (0.04-0.35) X 10*3/uL ESR 50 H (0-15) mm/hr POC Glucose (mg/dL) 212 H (70-110) mg/dL C-Reactive Protein 3.0 H (<1.0) mg/dL 05/07/23 05/08/23 05/08/23 Range/Units 20:05 05:54 06:56 WBC 12.97 H (4.50-10.00) X 10*3/uL RBC 4.22 L (4.40-5.60) X 10*6/uL Hgb 12.3 L (13.0-17.0) d/dL Hct 37.7 L (39.6-50.0) % Neutrophils # 8.92 H (1.80-7.70) X 10*3/uL Eosinophils # 0.75 H (0.04-0.35) X 10*3/uL ESR (0-15) mm/hr POC Glucose (mg/dL) 251 H 175 H (70-110) mg/dL C-Reactive Protein (<1.0) mg/dL 05/08/23 Range/Units 11:10 WBC (4.50-10.00) X 10*3/uL RBC (4.40-5.60) X 10*6/uL Hgb (13.0-17.0) d/dL Hct (39.6-50.0) % Neutrophils # (1.80-7.70) X 10*3/uL Eosinophils # (0.04-0.35) X 10*3/uL ESR (0-15) mm/hr POC Glucose (mg/dL) 185 H (70-110) mg/dL C-Reactive Protein (<1.0) mg/dL Microbiology - Last 24 Hours (Table) 05/06/23 14:39 Blood Culture Gram Stain - Preliminary Blood Assessment and Plan Assessment: 1. Chronic kidney disease NKF stage IIIB secondary to nephrosclerosis. Baseline creatinine around 1.9-2 mg/dL. 2. Left index finger wound which is chronic. Being followed by vascular surgery. 3. Type 2 diabetes maintained on farxiga and metformin as outpatient 4. Hypertension with CK D, uncontrolled. DC IV fluids Plan: Continue hydralazine and amlodipine and Coreg for blood pressure control. Can increase farxiga 10 mg daily. Continue with Lasix Repeat labs in a.m. Continue with Lasix
[2023-05-08] MEDS: ATORVASTATIN 10 MG TAB PO SCH (16:35)
[2023-05-08 17:07] LABS: Glucose,Whole Blood 151 mg/dL (70-110)
--- NOTE | 2023-05-08 17:09 | P.PN ---
Subjective Progress Note Date: 05/08/23 Principal diagnosis: Right index finger tip gangrene and cellulitis Patient is a 63-year-old male with a past medical history significant for diabetes mellitus hyperlipidemia did have a problem with the nonhealing wound to the right index finger that has been there for almost 4 months now , patient is not very clear how it started initially, presented to hospital for worsening redness concerning for possible cellulitis and did have abnormal x-ray suspicious for Osteomyelitis. on today's evaluation that is 05/08/2023, the patient denies having any fever or chills, the patient is breathing comfortably on room air no chest pain or shortness of cough no nausea and abdominal abdominal pain denies any worsening pain to the right index finger, swelling redness slightly decreased Patient did have a white count of 12.97, creatinine is 1.8, blood cultures with coagulase negative staph Objective - Vital Signs Vital signs: Vital Signs Temp 97.8 F 05/08/23 11:08 Pulse 75 05/08/23 11:08 Resp 16 05/08/23 11:08 BP 150/73 05/08/23 16:34 Pulse Ox 91 L 05/08/23 11:08 FiO2 Intake & Output 05/07/23 05/08/23 05/08/23 18:59 06:59 18:59 Other: # Voids 1 - Exam GENERAL DESCRIPTION: A middle-age male lying in bed in no distress RESPIRATORY SYSTEM: Unlabored breathing , decreased breath sounds at bases HEART: S1 S2 regular rate and rhythm , ABDOMEN: Soft , no tenderness EXTREMITIES: Right index finger tip with discoloration swelling redness slightly decreased - Labs CBC & Chem 7: 05/08/23 05:54 05/08/23 05:54 Labs: Abnormal Lab Results - Last 24 Hours (Table) 05/07/23 05/07/23 05/08/23 Range/Units 17:18 20:05 05:54 WBC 12.97 H (4.50-10.00) X 10*3/uL RBC 4.22 L (4.40-5.60) X 10*6/uL Hgb 12.3 L (13.0-17.0) d/dL Hct 37.7 L (39.6-50.0) % Neutrophils # 8.92 H (1.80-7.70) X 10*3/uL Eosinophils # 0.75 H (0.04-0.35) X 10*3/uL Anion Gap (4.00-12.00) mmol/L Creatinine (0.6-1.5) mg/dL Est GFR (CKD-EPI) (>=60) BUN/Creatinine Ratio (12.00-20.00) Ratio Glucose (70-110) mg/dL POC Glucose (mg/dL) 212 H 251 H (70-110) mg/dL 05/08/23 05/08/23 05/08/23 Range/Units 05:54 06:56 11:10 WBC (4.50-10.00) X 10*3/uL RBC (4.40-5.60) X 10*6/uL Hgb (13.0-17.0) d/dL Hct (39.6-50.0) % Neutrophils # (1.80-7.70) X 10*3/uL Eosinophils # (0.04-0.35) X 10*3/uL Anion Gap 12.20 H (4.00-12.00) mmol/L Creatinine 1.8 H (0.6-1.5) mg/dL Est GFR (CKD-EPI) 42 L (>=60) BUN/Creatinine Ratio 10.78 L (12.00-20.00) Ratio Glucose 132 H (70-110) mg/dL POC Glucose (mg/dL) 175 H 185 H (70-110) mg/dL Microbiology - Last 24 Hours (Table) 05/06/23 14:39 Blood Culture Gram Stain - Preliminary Blood Blood Culture - Preliminary Coagulase Negative Staph Assessment and Plan (1) Positive blood culture Current Visit: Yes Status: Acute Code(s): R78.81 - BACTEREMIA SNOMED Code(s): 368954464 (2) Osteomyelitis Current Visit: Yes Status: Acute Code(s): M86.9 - OSTEOMYELITIS, UNSPECIFIED SNOMED Code(s): 89613550 Plan: 1patient with right index finger distal phalanx discoloration and some cellulitis abnormality on the x-ray suspicious for possible osteomyelitis in this patient underlying diabetes and symptom has been going on for almost 4 months. 2patient will benefit from evaluation by hand surgery for possible debridement and deep culture 3-positive blood culture with coagulase negative staph possibly contamination blood cultures will be repeated document clearance of his bacteremia 4patient to continue with Unasyn 3 g every 6 hours while waiting for the work- up to be completed Dictation was produced using [employer] software. please excuse any grammatical, word or spelling errors. Time with Patient: Less than 30
--- NOTE | 2023-05-08 18:17 | US ---
EXAMINATION TYPE: US arterial UE single level DATE OF EXAM: 05/07/2023 10:26 AM CLINICAL INDICATION: Male, 63 years old with history of digit ischemia; Digit ischemia, digit wavefor ms shown, 1st digit pressures performed. History of: Smoker: Never Hypertension: Yes Diabetic: Yes Hyperlipidemia: Yes TIA/CVA: No Previous Vascular Surgery: No CAD: No SD: No Vascular Ulcers: No Black second left digit. Patient feels numbness in his fingers bilaterally.* Doppler Waveforms: Right: Axillary: Biphasic Brachial: Multiphasic Radial: Multiphasic Ulnar: Biphasic Left: Axillary: Multiphasic Brachial: Multiphasic Radial: Biphasic Ulnar: Biphasic Wrist Brachial Indices: Right: 1.23 right RA, right UA could not occlude. Left: 1.22 IMPRESSION: Indices within normal limits.
[2023-05-08 20:54] LABS: Glucose,Whole Blood 406 mg/dL (70-110)
--- NOTE | 2023-05-09 02:26 | PN ---
PROGRESS NOTE DATE OF SERVICE: 05/08/2023 SUBJECTIVE: This is a 63-year-old gentleman who was admitted with left hand index finger wound and possible osteomyelitis also being evaluated for peripheral artery disease. No chest pain. No palpitations Infectious Disease is following the patient closely. Cultures are showing coag-negative staph in the blood. EXAM: VITAL SIGNS: Pulse is 75, blood pressure , respirations 16. CHEST: Clear to auscultation. CARDIOVASCULAR: S1, S2. ABDOMEN: Soft. EXTREMITIES: Left index finger wound present. LABORATORY DATA: Reviewed. ASSESSMENT: 1. Left finger infection, rule out osteomyelitis or peripheral artery disease. 2. Chronic kidney disease. 3. Anemia. 4. Diabetes mellitus, type 2. 5. Hyperlipidemia. 6. Chronic kidney stage 3. RECOMMENDATIONS AND DISCUSSION: I recommend to continue current medications with antibiotics. Closely follow with vascular surgeon, Infectious Disease. We will repeat labs tomorrow. Prognosis guarded. Further recommendations to follow. MMODL / IJN: [id number] /
[2023-05-09] MEDS: AMPICILLIN-SULBACTAM 3 GM in SODIUM CHLORIDE 0.9% 100 ML IVPB SCH ×3 (03:41→21:10)
[2023-05-09 07:08] LABS: Glucose,Whole Blood 136 mg/dL (70-110)
[2023-05-09] MEDS: INSULIN ASPART (NovoLOG) 100 UNIT/ML VIAL SQ SCH ×4 (07:33→21:14)
[2023-05-09] MEDS: hydrALAZINE HCL 50 MG TAB PO SCH ×3 (08:16→21:11)
[2023-05-09] MEDS: carvediloL 12.5 MG TAB PO SCH ×2 (08:16→17:41)
[2023-05-09] MEDS: GLIMEPIRIDE 4 MG TAB PO SCH (08:16)
[2023-05-09] MEDS: DAPAGLIFLOZIN PROPANEDIOL 5 MG TABLET PO SCH (08:16)
[2023-05-09] MEDS: FUROSEMIDE 40 MG TAB PO SCH (08:16)
[2023-05-09] MEDS: metFORMIN 500 MG TAB PO SCH ×2 (08:16→21:10)
[2023-05-09] MEDS: FERROUS SULFATE 325 MG TAB PO SCH (08:17)
[2023-05-09] MEDS: ISOSORBIDE MONONITRATE ER 30 MG TAB.ER.24H PO SCH (08:17)
[2023-05-09] MEDS: amLODIPine 10 MG TAB PO SCH (08:17)
[2023-05-09] MEDS: allopurinoL 100 MG TAB PO SCH (08:17)
[2023-05-09 12:19] LABS: Glucose,Whole Blood 188 mg/dL (70-110)
--- NOTE | 2023-05-09 12:56 | P.CNOR ---
History of Present Illness - HPI Consult date: 05/09/23 Consult reason: other (Left index finger infection) History of present illness: The patient is a 63 y/o male with a medical history including diabetes who presented to the ER last week with increasing redness and swelling to the left index finger. He states there has been a wound on the finger for a couple melvina hs and he gets wounds on his fingers occasionally. X-rays in the ER reveal possible bony destruction from osteomyelitis to the left index and middle fingers. He has been on IV antibiotics since last Tuesday with improvement of swelling and redness. Orthopedic hand surgery was consulted today for further evaluation and treatment. Vascular surgery has also evaluated the patient. Review of Systems Constitutional: Denies chills, Denies fatigue, Denies fever Cardiovascular: Denies chest pain, Denies shortness of breath Respiratory: Denies cough Gastrointestinal: Denies diarrhea, Denies nausea, Denies vomiting Musculoskeletal: left: hand pain, hand swelling Past Medical History Past Medical History: Diabetes Mellitus, Hyperlipidemia History of Any Multi-Drug Resistant Organisms: None Reported Past Surgical History: Orthopedic Surgery, Tonsillectomy Additional Past Surgical History / Comment(s): tip of rt middle finger removed from work injury Past Anesthesia/Blood Transfusion Reactions: No Reported Reaction Past Psychological History: No Psychological Hx Reported Smoking Status: Never smoker Past Alcohol Use History: None Reported Past Drug Use History: None Reported Medications and Allergies Home Medications Medication Instructions Recorded Confirmed Type Lovastatin [Mevacor] 40 mg PO W/SUPPER 05/01/18 05/06/23 History Ferrous Sulfate [Iron (65 MG 325 mg PO DAILY 06/17/22 05/06/23 History Elemental)] Furosemide [Lasix] 40 mg PO QAM 08/05/22 05/06/23 History hydrALAZINE HCL [Apresoline] 100 mg PO TID 08/05/22 05/06/23 History Isosorbide Mononitrate ER [Imdur] 30 mg PO QAM 12/10/22 05/06/23 History allopurinoL [Zyloprim] 200 mg PO DAILY 12/10/22 05/06/23 History Dapagliflozin Propanediol [Farxiga] 5 mg PO DAILY 05/06/23 05/06/23 History Dulaglutide [Trulicity] 1.5 mg SQ WE 05/06/23 05/06/23 History Famotidine [Pepcid] 20 mg PO HS PRN 05/06/23 05/06/23 History Glimepiride [Amaryl] 8 mg PO DAILY 05/06/23 05/06/23 History carvediloL [Coreg] 25 mg PO BID-W/MEALS 05/06/23 05/06/23 History metFORMIN HCL ER [Glucophage XR] 1,000 mg PO BID 05/06/23 05/06/23 History Allergies Allergy/AdvReac Type Severity Reaction Status Date / Time No Known Allergies Allergy Verified 05/06/23 17:28 Physical Examination The patient is a 63 y/o male in no acute distress. He is alert and oriented x3. Exam of the left hand reveals stable necrotic tissue to the finger tip of the left index finger. There is chronic skin thickening to the left middle finger tip as well. No drainage present. No erythema present. Swelling is minimal to the finger. Chronic finger numbness is present. Circulatory status is intact. Results X-rays of the left hand reveal bony destruction to the distal phalanx of the left index and middle fingers. - Labs Labs: Abnormal Lab Results - Last 24 Hours (Table) 05/08/23 05/08/23 05/09/23 Range/Units 17:05 20:52 07:07 POC Glucose (mg/dL) 151 H 406 H 136 H (70-110) mg/dL 05/09/23 Range/Units 12:18 POC Glucose (mg/dL) 188 H (70-110) mg/dL Microbiology - Last 24 Hours (Table) 05/06/23 14:39 Blood Culture Gram Stain - Preliminary Blood Blood Culture - Preliminary Coagulase Negative Staph H & H 05/06/23 05/07/23 05/08/23 Range/Units 14:39 05:39 05:54 Hgb 12.3 L 11.9 L 12.3 L (13.0-17.5) gm/dL Hct 35.9 L 36.6 L 37.7 L (39.0-53.0) % Result Diagrams: 05/09/23 06:34 05/09/23 06:34 Assessment and Plan (1) Finger infection Current Visit: Yes Status: Acute Code(s): L08.9 - LOCAL INFECTION OF THE SKIN AND SUBCUTANEOUS TISSUE, UNSP SNOMED Code(s): 826115645 (2) Osteomyelitis Current Visit: Yes Status: Acute Code(s): M86.9 - OSTEOMYELITIS, UNSPECIFIED SNOMED Code(s): 35217274 Plan: The clinical and x-ray findings were discussed with the patient. The case was discussed with Dr. Gomes. We discussed operative and nonoperative treatment. We also discussed use of antibiotics at this time. There is no evidence of worsening active infection at this time that would warrant immediate operative treatment. We recommend that he wait to see if the finger improves on antibiotics and close follow up for possible amputation on an outpatient basis. Patient agrees with the plan. He will follow up in our office in 1 week after discharge for further care and close observation.
--- NOTE | 2023-05-09 13:10 | P.PN ---
Subjective Progress Note Date: 05/09/23 Principal diagnosis: Gangrene finger Patient was seen and examined today as a follow-up. He has no acute complaints. Denies any fevers or chills. No significant pain in his right hand. Arterial ultrasound of bilateral upper extremities reviewed with normal flow. Objective - Vital Signs Vital signs: Vital Signs Temp 97.8 F 05/09/23 07:06 Pulse 79 05/09/23 07:06 Resp 14 05/09/23 07:06 BP 155/84 05/09/23 07:06 Pulse Ox 96 05/09/23 07:06 FiO2 Intake & Output 05/08/23 05/09/23 05/09/23 18:59 06:59 18:59 Intake Total 240 Balance 240 Intake: Oral 240 Other: # Voids 2 - Exam General appearance: The patient is alert, oriented, appears in no acute distress. HET: Head is normocephalic and atraumatic. Neck: Supple. Abdomen: Soft,, nondistended. Extremities: Palpable bilateral radial pulses. Dry gangrenous changes to the distal tip of index finger on left hand. Hands are fully functional. No eviden ce of cellulitis or other infectious issues. Neurological: No focal deficits. Strength and sensation are grossly intact. - Labs CBC & Chem 7: 05/08/23 05:54 05/08/23 05:54 Labs: Abnormal Lab Results - Last 24 Hours (Table) 05/08/23 05/08/23 05/08/23 Range/Units 05:54 05:54 11:10 WBC 12.97 H (4.50-10.00) X 10*3/uL RBC 4.22 L (4.40-5.60) X 10*6/uL Hgb 12.3 L (13.0-17.0) d/dL Hct 37.7 L (39.6-50.0) % Neutrophils # 8.92 H (1.80-7.70) X 10*3/uL Eosinophils # 0.75 H (0.04-0.35) X 10*3/uL Anion Gap 12.20 H (4.00-12.00) mmol/L Creatinine 1.8 H (0.6-1.5) mg/dL Est GFR (CKD-EPI) 42 L (>=60) BUN/Creatinine Ratio 10.78 L (12.00-20.00) Ratio Glucose 132 H (70-110) mg/dL POC Glucose (mg/dL) 185 H (70-110) mg/dL 05/08/23 05/08/23 05/09/23 Range/Units 17:05 20:52 07:07 WBC (4.50-10.00) X 10*3/uL RBC (4.40-5.60) X 10*6/uL Hgb (13.0-17.0) d/dL Hct (39.6-50.0) % Neutrophils # (1.80-7.70) X 10*3/uL Eosinophils # (0.04-0.35) X 10*3/uL Anion Gap (4.00-12.00) mmol/L Creatinine (0.6-1.5) mg/dL Est GFR (CKD-EPI) (>=60) BUN/Creatinine Ratio (12.00-20.00) Ratio Glucose (70-110) mg/dL POC Glucose (mg/dL) 151 H 406 H 136 H (70-110) mg/dL Microbiology - Last 24 Hours (Table) 05/06/23 14:39 Blood Culture Gram Stain - Preliminary Blood Blood Culture - Preliminary Coagulase Negative Staph Assessment and Plan Assessment: 1. Chronic wound distal to her left second finger 2. Greater than 30 year history of diabetes mellitus 3. Dyslipidemia 4. Probable small vessel disease of upper extremity Plan: 1. Arterial Doppler study ordered and reviewed with normal flow 2. No evidence of ongoing infection or advancement and ischemia 3. No plans for any vascular surgical intervention 4. Recommend outpatient follow-up with hand surgeon for possible amputation of the distal tuft of left index finger Thank you for this consultation, patient is clear from vascular surgery for discharge The impression and plan of care has been dictated as directed. I performed a history and examination of this patient, discussed the same with the dictator. I agree with the dictator's note ,documented as a scribe. Any additional findings or plans will be noted.
--- NOTE | 2023-05-09 13:31 | P.PN ---
Subjective Patient is seen for follow-up for chronic kidney disease. Renal function is stable. Admitted with wound on left index finger. This is chronic No significant complaints today. Objective - Vital Signs Vital signs: Vital Signs Temp 98 F 05/09/23 11:15 Pulse 86 05/09/23 11:15 Resp 20 05/09/23 11:15 BP 156/83 05/09/23 11:15 Pulse Ox 92 L 05/09/23 11:15 FiO2 Intake & Output 05/08/23 05/09/23 05/09/23 18:59 06:59 18:59 Intake Total 240 Balance 240 Intake: Oral 240 Other: # Voids 2 - Exam Awake, comfortable, in no acute distress Examination of the heart S1 and S2 Examination of the lungs bilateral breath sounds are heard Abdomen is soft nontender Examination of lower extremity shows no significant edema Left index finger shows discoloration at the tip with chronic changes 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 Chronic kidney disease NKF stage IIIB secondary to nephrosclerosis. Baseline creatinine around 1.9-2 mg/dL. 2. Left index finger wound which is chronic. Being followed by vascular surgery. 3. Type 2 diabetes maintained on farxiga and metformin as outpatient 4. Hypertension with CK D, uncontrolled. DC IV fluids Plan: Continue hydralazine and amlodipine and Coreg for blood pressure control. Can increase farxiga 10 mg daily. Continue with Lasix Continue with Lasix Okay to discharge from nephrology standpoint.
[2023-05-09 14:41] LABS: BUN/Creat Ratio 13.26 Ratio (12.00-20.00); Blood Urea Nitrogen 25.2 mg/dL (9.0-27.0); Calcium 9.6 mg/dL (8.7-10.3); Carbon Dioxide 24.2 mmol/L (21.6-31.8); Chloride 100 mmol/L (96-109); Glucose 137 mg/dL (70-110); Potassium 4.9 mmol/L (3.5-5.5); Sodium 139 mmol/L (135-145)
[2023-05-09 14:58] LABS: HCT 36.6 % (39.6-50.0); HGB 11.9 d/dL (13.0-17.0); MCH 29.2 pg (27.0-32.0); MCHC 32.5 d/dL (32.0-37.0); MCV 89.7 FL (80.0-97.0); Mean Platelet Volume 10.8 FL (9.5-12.2); NRBC Per 100 WBC 0 X 10*3/uL (0.00-0.01); Platelet Count 287 X 10*3/uL (140-440); RBC 4.08 X 10*6/uL (4.40-5.60); RDW 14.5 % (11.5-14.5); WBC 13.21 X 10*3/uL (4.50-10.00)
[2023-05-09 14:59] LABS: Basophils # (A) 0.08 X 10*3/uL (0.00-0.10); Basophils % (A) 0.6 %; Eosinophils # (A) 0.71 X 10*3/uL (0.04-0.35); Eosinophils % (A) 5.4 %; Lymphocytes # (A) 2.25 X 10*3/uL (0.90-5.00); Monocytes # (A) 0.82 X 10*3/uL (0.20-1.00); Monocytes % (A) 6.2 %; Neutrophils # (A) 9.27 X 10*3/uL (1.80-7.70); Neutrophils % (A) 70.2 %
[2023-05-09 17:10] LABS: Glucose,Whole Blood 151 mg/dL (70-110)
[2023-05-09] MEDS: ATORVASTATIN 10 MG TAB PO SCH (17:41)
[2023-05-09 20:58] LABS: Glucose,Whole Blood 182 mg/dL (70-110)
--- NOTE | 2023-05-09 22:52 | P.PN ---
Subjective This is a pleasant 63 years old comes presents with osteomyelitis of the left second digit affecting mainly the distal phalanx with area swollen right and tender up to less than 0.5 cm from the tip and worked. Patient denies any other symptom Patient developed by vascular surgery and orthopedic team and recommended outpatient follow-up in one week, patient informed and he agrees. At that time he would be evaluated for possible amputation. Patient remains on Unasyn per ID team. Possible patient will need a PICC line and IV antibiotics upon discharge, this will be evaluated for tomorrow. Patient therefore discharged from nephrology standpoint and his blood pressures were controlled. WBC 13. Hemoglobin 11.2. Creatinine at baseline for 1.9. No other new complaint. Objective - Vital Signs Vital signs: Vital Signs Temp 98 F 05/09/23 11:15 Pulse 86 05/09/23 11:15 Resp 20 05/09/23 11:15 BP 156/83 05/09/23 11:15 Pulse Ox 92 L 05/09/23 11:15 FiO2 Intake & Output 05/08/23 05/09/23 05/09/23 18:59 06:59 18:59 Intake Total 240 Balance 240 Intake: Oral 240 Other: # Voids 2 - Exam GENERAL: The patient is alert and oriented x3, not in any acute distress. Well developed, well nourished. HEENT: Pupils are round and equally reacting to light. EOMI. No scleral icterus. No conjunctival pallor. Normocephalic, atraumatic. No pharyngeal erythema. No thyromegaly. CARDIOVASCULAR: S1 and S2 present. No murmurs, rubs, or gallops. PULMONARY: Chest is clear to auscultation, no wheezing , no crackles. ABDOMEN: Soft, nontender, nondistended, normoactive bowel sounds. No palpable organomegaly. MUSCULOSKELETAL: No joint swelling or deformity. -EXTREMITIES: No cyanosis, clubbing, or pedal edema. Movement tip of the left second index finger NEUROLOGICAL: Gross neurological examination did not reveal any focal deficits. SKIN: No rashes. no petechiae. - Labs CBC & Chem 7: 05/09/23 06:34 05/09/23 06:34 Labs: Abnormal Lab Results - Last 24 Hours (Table) 05/08/23 05/08/23 05/09/23 Range/Units 17:05 20:52 07:07 POC Glucose (mg/dL) 151 H 406 H 136 H (70-110) mg/dL 05/09/23 Range/Units 12:18 POC Glucose (mg/dL) 188 H (70-110) mg/dL Microbiology - Last 24 Hours (Table) 05/06/23 14:39 Blood Culture Gram Stain - Preliminary Blood Blood Culture - Preliminary Coagulase Negative Staph Assessment and Plan Assessment: Osteomyelitis of the left second digit Chronic kidney disease stage III Positive blood culture with grimace negative staph, most likely contamination Mild leukocytosis Plan: Continue with antibiotic, IV Unasyn per ID team Possible need for PICC line and IV antibiotic per ID team. We will reevaluate in the 24 hours. Patient did for discharge by nephrology, orthopedic and vascular surgery team Labs and medication were reviewed.. Continue same treatment. Continue with symptomatic treatment. Resume home medication. Monitor labs and vitals. DVT and GI prophylaxis. Further recommendations as per clinical course of the patient DVT prophylaxis: Subcutaneous heparin GI Prophylaxis: Pepcid PT/OT: Pending Prognosis is guarded
[2023-05-10] MEDS: AMPICILLIN-SULBACTAM 3 GM in SODIUM CHLORIDE 0.9% 100 ML IVPB SCH ×2 (04:23→12:13)
[2023-05-10 07:05] LABS: Glucose,Whole Blood 110 mg/dL (70-110)
[2023-05-10] MEDS: INSULIN ASPART (NovoLOG) 100 UNIT/ML VIAL SQ SCH ×2 (07:26→12:13)
[2023-05-10] MEDS: hydrALAZINE HCL 50 MG TAB PO SCH ×2 (09:28→15:11)
[2023-05-10] MEDS: FERROUS SULFATE 325 MG TAB PO SCH (09:28)
[2023-05-10] MEDS: carvediloL 12.5 MG TAB PO SCH (09:28)
[2023-05-10] MEDS: allopurinoL 100 MG TAB PO SCH (09:28)
[2023-05-10] MEDS: FUROSEMIDE 40 MG TAB PO SCH (09:28)
[2023-05-10] MEDS: metFORMIN 500 MG TAB PO SCH (09:28)
[2023-05-10] MEDS: amLODIPine 10 MG TAB PO SCH (09:28)
[2023-05-10] MEDS: GLIMEPIRIDE 4 MG TAB PO SCH (09:28)
[2023-05-10] MEDS: ISOSORBIDE MONONITRATE ER 30 MG TAB.ER.24H PO SCH (09:28)
[2023-05-10] MEDS: DAPAGLIFLOZIN PROPANEDIOL 5 MG TABLET PO SCH (09:28)
[2023-05-10 11:52] LABS: Glucose,Whole Blood 214 mg/dL (70-110)
[2023-05-10 12:48] VITALS: BP 127/70; PULSE 78; RESP 16; TEMP 98
--- NOTE | 2023-05-10 13:32 | P.PN ---
Subjective Patient is seen for follow-up for chronic kidney disease. Renal function is stable. Admitted with wound on left index finger. This is chronic No significant complaints today. Objective - Vital Signs Vital signs: Vital Signs Temp 98.0 F 05/10/23 12:37 Pulse 78 05/10/23 12:37 Resp 16 05/10/23 12:37 BP 127/70 05/10/23 12:37 Pulse Ox 94 L 05/10/23 12:37 FiO2 Intake & Output 05/09/23 05/10/23 05/10/23 18:59 06:59 18:59 Other: # Voids 2 1 - Exam Awake, comfortable, in no acute distress Examination of lower extremity shows no significant edema Left index finger shows discoloration at the tip with chronic changes UPSTAIRS MAID exam grossly intact - Labs CBC & Chem 7: 05/09/23 06:34 05/09/23 06:34 Labs: Abnormal Lab Results - Last 24 Hours (Table) 05/09/23 05/09/23 05/09/23 Range/Units 06:34 06:34 17:08 WBC 13.21 H (4.50-10.00) X 10*3/uL RBC 4.08 L (4.40-5.60) X 10*6/uL Hgb 11.9 L (13.0-17.0) d/dL Hct 36.6 L (39.6-50.0) % Neutrophils # 9.27 H (1.80-7.70) X 10*3/uL Eosinophils # 0.71 H (0.04-0.35) X 10*3/uL Anion Gap 14.80 H (4.00-12.00) mmol/L Creatinine 1.9 H (0.6-1.5) mg/dL Est GFR (CKD-EPI) 39 L (>=60) Glucose 137 H (70-110) mg/dL POC Glucose (mg/dL) 151 H (70-110) mg/dL 05/09/23 05/10/23 Range/Units 20:56 11:50 WBC (4.50-10.00) X 10*3/uL RBC (4.40-5.60) X 10*6/uL Hgb (13.0-17.0) d/dL Hct (39.6-50.0) % Neutrophils # (1.80-7.70) X 10*3/uL Eosinophils # (0.04-0.35) X 10*3/uL Anion Gap (4.00-12.00) mmol/L Creatinine (0.6-1.5) mg/dL Est GFR (CKD-EPI) (>=60) Glucose (70-110) mg/dL POC Glucose (mg/dL) 182 H 214 H (70-110) mg/dL Microbiology - Last 24 Hours (Table) 05/06/23 14:39 Blood Culture Gram Stain - Final Blood Blood Culture - Final Staphylococcus hominis Assessment and Plan Assessment: 1. Chronic kidney disease NKF stage IIIB secondary to nephrosclerosis. Bas mckay creatinine around 1.9-2 mg/dL. 2. Left index finger wound which is chronic. Being followed by vascular surgery. 3. Type 2 diabetes maintained on farxiga and metformin as outpatient 4. Hypertension with CK D, uncontrolled. DC IV fluids Plan: Continue hydralazine and amlodipine and Coreg for blood pressure control. Can increase farxiga 10 mg daily. Continue with Lasix Continue with Lasix Okay to discharge from nephrology standpoint.
--- NOTE | 2023-05-10 21:31 | P.DS ---
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 Do you want consulting provider notified?: Yes 05/09/23 08:45 Consult Physician Urgent Consulting Provider: Mamie Gomes Consult Reason/Comments: finger om Do you want consulting provider notified?: Yes Primary care physician: Tawanna Canela Hospital Course: Diagnoses: Osteomyelitis of the left second digit Chronic kidney disease stage III Positive blood culture with grimace negative staph, most likely contamination Mild leukocytosis Hospital course: This is a pleasant 63 years old comes presents with osteomyelitis of the left second digit affecting mainly the distal phalanx with area swollen right and tender up to less than 0.5 cm from the tip of the left index finger. Patient evaluated by several consultants including ID team, vascular surgery team and orthopedic team. Patient was treated with IV Unasyn and he showed interval improvement Vascular surgery team and orthopedic team both of them did not recommend any surgical intervention while in-house, anesthetic they recommended follow-up as an outpatient in 1 week and patient informed and he agrees Patient remained clinically stable and he was showing slow improvement. I discussed the case with Dr. Galdamez today who is going to discharge him on oral antibiotic, Augmentin [see discharge instruction] Also patient evaluated by voting machine mechanic for chronic kidney disease and hypertension which is controlled on the current medication Patient denies any other new symptoms and plan discussed with him in details and he agrees to follow up as an outpatient and take oral antibiotic as prescribed Patient was cleared for discharge by all consultants including infectious disease team, orthopedic team, vascular surgery team and voting machine mechanic. Problems and management plan were discussed with the patient and he verbalized understanding and acceptance Patient was found stable and can be discharged home in guarded prognosis however he needs follow-up as an outpatient. Patient was instructed to follow up with PCP Dr. mcgee within one week and patient agrees Physical exam Gen: patient is a AAOx3, no distress CVS: S1-S2, RRR, no murmur Lungs: B/L CTA, no wheezing Abdomen: soft, no distention, no tenderness, positive bowel sounds -Extremity: no leg edema or induration. Left second finger: Inflamed tip with m ild swelling and redness Time spent more than 35 minutes Patient Condition at Discharge: Stable Plan - Discharge Summary Discharge Rx Participant: No New Discharge Prescriptions: New amLODIPine [Norvasc] 10 mg PO DAILY #30 tab Amoxic-Pot Clav 500-125 mg [Augmentin 500-125 mg] 1 tab PO Q8HR #36 tab Continue Lovastatin [Mevacor] 40 mg PO W/SUPPER Ferrous Sulfate [Iron (65 MG Elemental)] 325 mg PO DAILY hydrALAZINE HCL [Apresoline] 100 mg PO TID Furosemide [Lasix] 40 mg PO QAM allopurinoL [Zyloprim] 200 mg PO DAILY Isosorbide Mononitrate ER [Imdur] 30 mg PO QAM Glimepiride [Amaryl] 8 mg PO DAILY Famotidine [Pepcid] 20 mg PO HS PRN PRN Reason: GERD carvediloL [Coreg] 25 mg PO BID-W/MEALS Dapagliflozin Propanediol [Farxiga] 5 mg PO DAILY Dulaglutide [Trulicity] 1.5 mg SQ WE metFORMIN HCL ER [Glucophage XR] 1,000 mg PO BID Discharge Medication List Lovastatin [Mevacor] 40 mg PO W/SUPPER 05/01/18 [History] Ferrous Sulfate [Iron (65 MG Elemental)] 325 mg PO DAILY 06/17/22 [History] Furosemide [Lasix] 40 mg PO QAM 08/05/22 [History] hydrALAZINE HCL [Apresoline] 100 mg PO TID 08/05/22 [History] Isosorbide Mononitrate ER [Imdur] 30 mg PO QAM 12/10/22 [History] allopurinoL [Zyloprim] 200 mg PO DAILY 12/10/22 [History] Dapagliflozin Propanediol [Farxiga] 5 mg PO DAILY 05/06/23 [History] Dulaglutide [Trulicity] 1.5 mg SQ WE 05/06/23 [History] Famotidine [Pepcid] 20 mg PO HS PRN 05/06/23 [History] Glimepiride [Amaryl] 8 mg PO DAILY 05/06/23 [History] carvediloL [Coreg] 25 mg PO BID-W/MEALS 05/06/23 [History] metFORMIN HCL ER [Glucophage XR] 1,000 mg PO BID 05/06/23 [History] Amoxic-Pot Clav 500-125 mg [Augmentin 500-125 mg] 1 tab PO Q8HR #36 tab 05/10/23 [Rx] amLODIPine [Norvasc] 10 mg PO DAILY #30 tab 05/10/23 [Rx] Follow up Appointment(s)/Referral(s): Mamie Gomes DO [Doctor of Osteopathic Medicine] - 05/18/23 10:30 am Chad Barragan DO [Doctor of Osteopathic Medicine] - 05/26/23 1:15 pm Tawanna Canela MD [Primary Care Provider] - 1-2 days (The office was not available to make follow up appointment please call and make follow up appointment.) Evelyne Galdamez MD [STAFF PHYSICIAN] - 2 Weeks (Office will call you for a follow up appointment ) Activity/Diet/Wound Care/Special Instructions: Heart healthy diet, low carbohydrate 1600 kcal per day activity is restricted till you see your doctor Check your glucose 4 times a day before each meal and at bedtime, keep the results in a log book and bring it to your doctor on your appointment date If you have glucose less than 70 or more than 400 and call 911 and come to emergency room Discharge Disposition: HOME SELF-CARE
[2023-05-11] MEDS ORDERED: NON FORMULARY DRUG (Dulaglutide [Trulicity] 1.5 MG/0.5 ML Each) SQ SCH (09:00)
== END 2023-05-10 17:35 | disposition home or self-care (01) | DRG 300 ==
LOC: EC 12:04 → 5NMEDONC 16:28
PROVIDERS: ADMIT Hospitalist; ATTEND Hospitalist
DX: E11.52 Type 2 diabetes mellitus with diabetic peripheral angiopathy with gangrene (principal); I96 Gangrene, not elsewhere classified; M86.8X4 Other osteomyelitis, hand; R78.81 Bacteremia; E11.69 Type 2 diabetes mellitus with other specified complication; E11.22 Type 2 diabetes mellitus with diabetic chronic kidney disease; I12.9 Hypertensive chronic kidney disease with stage 1 through stage 4 chronic kidney disease, or unspecified chronic kidney disease; S60.941A Unspecified superficial injury of left index finger, initial encounter; N18.32 Chronic kidney disease, stage 3b; D63.1 Anemia in chronic kidney disease; E78.5 Hyperlipidemia, unspecified; Z79.85 Long-term (current) use of injectable non-insulin antidiabetic drugs; Z79.84 Long term (current) use of oral hypoglycemic drugs; Z79.899 Other long term (current) drug therapy
CPT/HCPCS: 36415; 80048; 80053; 83605; 85025; 85652; 86038; 86140; 86235; 87040; 87077; 87186; 93922; 96361; 96365; 96366; 99285

== ENCOUNTER → 2023-05-17 | Outpatient (CLI) | payer MEDICARE ==
[2023-05-17 11:00] LABS: Appearance,Urine Clear (Clear); Bilirubin,Urine Negative (Negative); Blood,Urine Negative (Negative); Color,Urine Yellow (Yellow); Ketones,Urine Negative (Negative); Nitrite,Urine Negative (Negative); Specific Gravity,Urine 1.014 (1.001-1.030); Urobilinogen,Urine 0.2 E.U./DL
[2023-05-17 11:05] LABS: Bacteria,Urine None Seen (None Seen)
[2023-05-17 11:23] LABS: Hepatitis A Antibody IgM Nonreactive; Hepatitis B Core IgM Nonreactive; Hepatitis B Surface Antigen Nonreactive; Hepatitis C IgG Antibody Nonreactive
[2023-05-17 11:38] LABS: Urine Creatinine 47.2 mg/dL (39.0-259.0)
[2023-05-17 14:28] LABS: Free Kappa Lt Chain Qnt, Serum 5.42 mg/dL (0.33-1.94); Free Lambda Lt Chain Qnt, Seru 3.43 mg/dL (0.57-2.63)
[2023-05-17 15:07] LABS: DNA Double-Stranded Indetermin (Negative)
[2023-05-17 15:33] LABS: HCT 37.6 % (39.6-50.0); HGB 12.1 d/dL (13.0-17.0); MCHC 32.2 d/dL (32.0-37.0); MCV 90.2 FL (80.0-97.0); NRBC Per 100 WBC 0 X 10*3/uL (0.00-0.01); Platelet Count 326 X 10*3/uL (140-440); RBC 4.17 X 10*6/uL (4.40-5.60); RDW 14.6 % (11.5-14.5); WBC 11.52 X 10*3/uL (4.50-10.00)
[2023-05-17 16:04] LABS: % Iron Saturation 13.27 (15.00-50.00); ALT 27 U/L (10-49); AST 26 U/L (14-35); Albumin 4.6 d/dL (3.8-4.9); Albumin/Globulin Ratio 1.64 Ratio (1.60-3.17); Alkaline Phosphatase 75 U/L (41-126); BUN/Creat Ratio 13.55 Ratio (12.00-20.00); Blood Urea Nitrogen 27.1 mg/dL (9.0-27.0); Calcium 10.1 mg/dL (8.7-10.3); Carbon Dioxide 22.5 mmol/L (21.6-31.8); Chloride 96 mmol/L (96-109); Globulin 2.8 d/dL (1.6-3.3); Glucose 176 mg/dL (70-110); Iron 45 UG/DL (65-175); Magnesium 1.8 mg/dL (1.5-2.4); Phosphorus 4.6 mg/dL (2.4-5.1); Potassium 5.8 mmol/L (3.5-5.5); Sodium 137 mmol/L (135-145); Total Bilirubin 0.2 mg/dL (0.3-1.2); Total Iron Binding Capacity 339 UG/DL (228-460); Total Protein 7.4 d/dL (6.2-8.2); Uric Acid 5.7 mg/dL (3.7-8.7)
[2023-05-18 14:14] LABS: C-ANCA <1:20 Titer (<1:20)
== END | disposition home or self-care (01) ==
LOC: LABWHC1 07:04
PROVIDERS: ATTEND Internal Medicine Nephrology
DX: N25.81 Secondary hyperparathyroidism of renal origin (principal); N18.32 Chronic kidney disease, stage 3b; D63.1 Anemia in chronic kidney disease; E55.9 Vitamin D deficiency, unspecified; N39.0 Urinary tract infection, site not specified; M10.9 Gout, unspecified; R53.83 Other fatigue
CPT/HCPCS: 36415; 80053; 80074; 81001; 82043; 82306; 82570; 82728; 83516; 83540; 83550; 83735; 83883; 83970; 84100; 84550; 85027; 86038; 86160; 86162; 86225; 86255; 86334

== ENCOUNTER → 2023-05-20 | Outpatient (CLI) | payer MEDICARE ==
[2023-05-20 15:52] LABS: ALT 26 U/L (10-49); AST 25 U/L (14-35); Albumin 4.5 d/dL (3.8-4.9); Albumin/Globulin Ratio 1.67 Ratio (1.60-3.17); Alkaline Phosphatase 71 U/L (41-126); BUN/Creat Ratio 12.33 Ratio (12.00-20.00); Blood Urea Nitrogen 25.9 mg/dL (9.0-27.0); Calcium 10.3 mg/dL (8.7-10.3); Carbon Dioxide 27.6 mmol/L (21.6-31.8); Chloride 94 mmol/L (96-109); Globulin 2.7 d/dL (1.6-3.3); Glucose 155 mg/dL (70-110); Potassium 4.8 mmol/L (3.5-5.5); Sodium 137 mmol/L (135-145); Total Bilirubin <0.2 mg/dL (0.3-1.2); Total Protein 7.2 d/dL (6.2-8.2)
== END | disposition home or self-care (01) ==
LOC: LABWHC1 06:54
PROVIDERS: ATTEND Internal Medicine
DX: N18.32 Chronic kidney disease, stage 3b (principal)
CPT/HCPCS: 36415; 80053

== ENCOUNTER → 2023-06-07 | Outpatient (CLI) | payer MEDICARE ==
--- NOTE | 2023-06-07 19:57 | US ---
EXAMINATION TYPE: US kidneys/renal and bladder DATE OF EXAM: 06/07/2023 COMPARISON: US 06/17/2027 CLINICAL INDICATION: Male, 63 years old with history of N18.32 CHRONIC KIDNEY DISEASE, STAGE 3B; CKD EXAM MEASUREMENTS: Right Kidney: 11.5 x 5.2 x 5.0 cm Left Kidney: 10.1 x 4.9 x 4.6 cm Right Kidney: Benign cyst at the lower pole measuring 1.5 x 0.8 x 1 1.2 cm. The previously visualized isoechoic/solid area measuring 3.0 x 2.8 cm mid kidney still visualized on today's exam when compare d to prior. Possibly measuring 2.7 cm on 06/22/2022 CT. Left Kidney: No hydronephrosis. Bladder: wnl Bilateral Jets seen: Only left jet visualized Incidental echogenic liver parenchyma suggesting fatty infiltration. IMPRESSION: 1. Focal rounded isoechoic solid area measuring 3.0 x 2.8 cm in the mid right kidney. Possibly measur ing 2.7 cm on prior 06/22/2022 CT. Findings may reflect variant anatomy with focal cortical lobulation . Subtle underlying indolent or benign mass is not excluded at this time. Recommend ongoing annual rogers rveillance follow-up. 2. No hydronephrosis.
== END | disposition home or self-care (01) ==
LOC: RADUSWWP 14:10
PROVIDERS: ATTEND Internal Medicine Nephrology
DX: N18.32 Chronic kidney disease, stage 3b (principal)
CPT/HCPCS: 76770

== ENCOUNTER → 2023-08-01 | Outpatient (CLI) | payer MEDICARE ==
--- NOTE | 2023-08-02 09:46 | MR ---
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 CT 05/01/2018, 06/22/2022 . TECHNIQUE: Multiplanar multi-sequence imaging was performed without contrast. Post contrast imaging was performed. Post IV contrast subtraction images were also submitted for review. IV Contrast: 9.5 cc Gadavist FINDINGS: LOWER CHEST: No gross irregularity. ABDOMEN Liver: No evidence for cirrhosis. Gallbladder and Bile ducts: No evidence for ductal dilation, or biliary stricture or evidence of chol edocholithiasis. The gallbladder is within normal limits. Pancreas: No ductal dilation. No evidence for solid mass. Spleen: Normal for size. Adrenal glands: Unremarkable. Kidneys: Right: kidney high T2 signal nonenhancing renal cysts present. Right renal mass measuring 3.4 x 3.0 cm, previously not visualized on 05/01/2018 and on 06/22/2022 where it measured 2.7 x 2.0 cm. This lesion does demonstrate heterogenous postcontrast enhancement. No hyd ronephrosis. Additional right-sided intrinsic high T1 signal proteinaceous/hemorrhagic cyst measuring 11 mm. Left: No evidence for mass tiny hiatal intrinsic high T1 signal hemorrhagic/proteinaceous cyst on the left measuring 4 mm. Additional high T2 signal nonenhancing renal cysts. A hemorrhagic cyst measurin g 12 mm with dependent high T1 signal is also present. No hydronephrosis. Stomach and Bowel: No evidence for bowel wall thickening or evidence for obstruction. The appendix is normal. Peritoneum: No evidence of pneumoperitoneum or free fluid. Vasculature: No aortic aneurysm. Musculoskeletal: The osseous structures appear intact. Lymph Nodes: No gross evidence for lymphadenopathy. Abdominal wall: Unremarkable. IMPRESSION: Slowly growing right renal mass measuring up to 3.4 cm concerning for renal cell carcinoma until prov en otherwise.
== END | disposition home or self-care (01) ==
LOC: RADMRIMAIN 20:30
PROVIDERS: ATTEND Urology
DX: D41.01 Neoplasm of uncertain behavior of right kidney (principal); N28.89 Other specified disorders of kidney and ureter
CPT/HCPCS: 74183; A9585

== ENCOUNTER → 2023-08-19 | Outpatient (CLI) | payer MEDICARE ==
[2023-08-19 11:52] LABS: HCT 37.1 % (39.6-50.0); MCHC 32.3 g/dL (32.0-37.0); MCV 86.7 FL (80.0-97.0); Mean Platelet Volume 10.5 FL (9.5-12.2); NRBC Per 100 WBC 0 X 10*3/uL (0.00-0.01); Platelet Count 290 X 10*3/uL (140-440); RBC 4.28 X 10*6/uL (4.40-5.60); WBC 12.43 X 10*3/uL (4.50-10.00)
[2023-08-19 12:30] LABS: % Iron Saturation 13.16 (15.00-50.00); ALT 19 U/L (10-49); AST 22 U/L (14-35); Albumin 4.2 g/dL (3.8-4.9); Albumin/Globulin Ratio 1.56 Ratio (1.60-3.17); Alkaline Phosphatase 87 U/L (41-126); BUN/Creat Ratio 11.33 Ratio (12.00-20.00); Blood Urea Nitrogen 27.2 mg/dL (9.0-27.0); Calcium 9.4 mg/dL (8.7-10.3); Carbon Dioxide 23.3 mmol/L (21.6-31.8); Chloride 95 mmol/L (96-109); Globulin 2.7 g/dL (1.6-3.3); Glucose 200 mg/dL (70-110); Iron 40 UG/DL (65-175); Potassium 4.5 mmol/L (3.5-5.5); Sodium 134 mmol/L (135-145); Total Bilirubin 0.2 mg/dL (0.3-1.2); Total Iron Binding Capacity 304 UG/DL (228-460); Total Protein 6.9 g/dL (6.2-8.2); Uric Acid 5.6 mg/dL (3.7-8.7)
[2023-08-19 14:06] LABS: DNA Double-Stranded Indetermin (Negative)
[2023-08-20 00:55] LABS: Appearance,Urine Clear (Clear); Bilirubin,Urine Negative (Negative); Blood,Urine Negative (Negative); Color,Urine Yellow (Yellow); Ketones,Urine Negative (Negative); Nitrite,Urine Negative (Negative); Urobilinogen,Urine 0.2 E.U./DL
[2023-08-20 01:14] LABS: Urine Creatinine 84.1 mg/dL (39.0-259.0)
== END | disposition home or self-care (01) ==
LOC: LABWHC1 07:05
PROVIDERS: ATTEND Nurse Practitioner Family
DX: N25.81 Secondary hyperparathyroidism of renal origin (principal); N18.32 Chronic kidney disease, stage 3b; D63.1 Anemia in chronic kidney disease; N39.0 Urinary tract infection, site not specified; E55.9 Vitamin D deficiency, unspecified; M10.9 Gout, unspecified; R80.9 Proteinuria, unspecified
CPT/HCPCS: 36415; 80053; 81003; 82043; 82306; 82570; 82728; 83540; 83550; 83735; 83970; 84100; 84550; 85027; 86225

== ENCOUNTER → 2023-09-15 | Outpatient (CLI) | payer MEDICARE ==
--- NOTE | 2023-10-03 12:30 | MR ---
EXAMINATION TYPE: MR hand LT wo con DATE OF EXAM: 09/15/2023 COMPARISON: Radiographs 05/06/2023 HISTORY: 63-year-old male L08.9, Left hand, 2nd digit, distal phalanx, evaluation for infection TECHNIQUE: Multiplanar, multisequence images of the left hand were obtained without IV contrast. FINDINGS: The patient returned on 09/28/2023 for additional sagittal T1-weighted sequences through the second and third digits. The exam is made available for review on 10/03/2023. Despite the soft tissue and bony loss at the tips of the second and third digits as well as the corre sponding right T2 signal within the corresponding distal phalanges, no suspicious bone marrow replace ment is identified within either distal phalanx. Small subcortical cysts within the carpal bones. Scattered mild patchy osseous edema in the carpal latia kirstie are Possible marginal erosions at the metatarsal heads but without any significant joint effusion here. Scattered subcutaneous soft tissue swelling. Prominent edema along the musculature of the thenar liz ence and scattered within the intrinsic muscles of the hand. Mild to moderate osteoarthritic change of the first CMC joint. No acute or healing fracture is seen. IMPRESSION: 1. Soft tissue loss at the tips of the second and third digits as well as corresponding bone loss of the underlying distal phalangeal dianne. There is soft tissue swelling here and underlying osseous cher ma of the distal phalanges compatible with osteitis. However, no corresponding T1-weighted bone marro w replacement is identified to indicate a contiguous osteomyelitis at this time. 2. Scattered osteoarthritic change. Query any history of old inflammatory arthropathy given small mar ginal erosions at the metacarpal heads and scattered subcortical cysts in the carpal bones. 3. Prominent edema within the musculature of the thenar eminence. Consider muscle strain or other sof t tissue injury. 4. Scattered patchy edema within the intrinsic muscles of the hand is nonspecific. Correlate for any underlying diabetes or neuropathic change.
== END | disposition home or self-care (01) ==
LOC: RADMRIMAIN 11:57
PROVIDERS: ATTEND Internal Medicine
DX: L08.9 Local infection of the skin and subcutaneous tissue, unspecified (principal); M19.042 Primary osteoarthritis, left hand; R60.0 Localized edema

== ENCOUNTER → 2023-10-27 | Outpatient (CLI) | payer MEDICARE ==
[2023-10-27 09:43] LABS: INR 1.2 (<1.2); Partial Thromboplastin Time 29.7 sec (22.0-30.0); Prothrombin Time 12.7 sec (10.0-12.5)
[2023-10-27 15:43] LABS: BUN/Creat Ratio 12.76 Ratio (12.00-20.00); Blood Urea Nitrogen 26.8 mg/dL (9.0-27.0); Calcium 9.8 mg/dL (8.7-10.3); Carbon Dioxide 25.6 mmol/L (21.6-31.8); Chloride 97 mmol/L (96-109); Glucose 230 mg/dL (70-110); Potassium 4.5 mmol/L (3.5-5.5); Sodium 137 mmol/L (135-145)
== END | disposition home or self-care (01) ==
LOC: LABWHC1 08:01
PROVIDERS: ATTEND Internal Medicine Cardiovascular Disease
DX: I50.32 Chronic diastolic (congestive) heart failure (principal); N28.89 Other specified disorders of kidney and ureter
CPT/HCPCS: 36415; 80048; 85610; 85730

== ENCOUNTER → 2023-12-30 | Outpatient (CLI) | payer MEDICARE ==
[2023-12-30 15:48] LABS: HGB 13.4 g/dL (13.0-17.0); MCH 27.5 pg (27.0-32.0); MCHC 31.9 g/dL (32.0-37.0); MCV 86.1 FL (80.0-97.0); Mean Platelet Volume 10.2 FL (9.5-12.2); NRBC Per 100 WBC 0 X 10*3/uL (0.00-0.01); Platelet Count 243 X 10*3/uL (140-440); RBC 4.88 X 10*6/uL (4.40-5.60); RDW 15.9 % (11.5-14.5)
[2023-12-30 16:15] LABS: Magnesium 2.4 mg/dL (1.5-2.4); Phosphorus 4.4 mg/dL (2.4-5.1)
[2023-12-30 16:16] LABS: % Iron Saturation 14.65 (15.00-50.00); ALT 16 U/L (10-49); AST 20 U/L (14-35); Albumin 4.4 g/dL (3.8-4.9); Albumin/Globulin Ratio 1.42 Ratio (1.60-3.17); Alkaline Phosphatase 109 U/L (41-126); BUN/Creat Ratio 13.81 Ratio (12.00-20.00); Carbon Dioxide 24.1 mmol/L (21.6-31.8); Chloride 98 mmol/L (96-109); Globulin 3.1 g/dL (1.6-3.3); Glucose 186 mg/dL (70-110); Iron 46 UG/DL (65-175); Potassium 4.3 mmol/L (3.5-5.5); Sodium 138 mmol/L (135-145); Total Bilirubin 0.3 mg/dL (0.3-1.2); Total Iron Binding Capacity 314 UG/DL (228-460); Total Protein 7.5 g/dL (6.2-8.2)
[2023-12-30 16:27] LABS: Appearance,Urine Clear (Clear); Bilirubin,Urine Negative (Negative); Blood,Urine Negative (Negative); Color,Urine Yellow (Yellow); Ketones,Urine Negative (Negative); Nitrite,Urine Negative (Negative); Specific Gravity,Urine 1.019 (1.001-1.030); Urobilinogen,Urine 0.2 E.U./DL
[2023-12-31 01:44] LABS: DNA Double-Stranded Indetermin (Negative)
== END | disposition home or self-care (01) ==
LOC: LABWHC1 08:20
PROVIDERS: ATTEND Internal Medicine Nephrology
DX: N18.32 Chronic kidney disease, stage 3b (principal)
CPT/HCPCS: 36415; 80053; 81003; 82043; 82306; 82570; 82728; 83540; 83550; 83735; 83970; 84100; 84550; 85027; 86225

== ENCOUNTER → 2024-04-03 | Outpatient (CLI) | payer MEDICARE ==
[2024-04-03 10:37] LABS: HCT 37.5 % (39.6-50.0); HGB 12.2 g/dL (13.0-17.0); MCH 27.6 pg (27.0-32.0); MCHC 32.5 g/dL (32.0-37.0); MCV 84.8 FL (80.0-97.0); Mean Platelet Volume 9.7 FL (9.5-12.2); NRBC Per 100 WBC 0 X 10*3/uL (0.00-0.01); Platelet Count 334 X 10*3/uL (140-440); RBC 4.42 X 10*6/uL (4.40-5.60); RDW 16.1 % (11.5-14.5)
[2024-04-03 11:14] LABS: % Iron Saturation 10.95 (15.00-50.00); ALT 16 U/L (10-49); AST 19 U/L (14-35); Albumin 4.3 g/dL (3.8-4.9); Albumin/Globulin Ratio 1.34 Ratio (1.60-3.17); Alkaline Phosphatase 106 U/L (41-126); Blood Urea Nitrogen 26.6 mg/dL (9.0-27.0); Calcium 9.6 mg/dL (8.7-10.3); Carbon Dioxide 23.8 mmol/L (21.6-31.8); Chloride 100 mmol/L (96-109); Globulin 3.2 g/dL (1.6-3.3); Glucose 136 mg/dL (70-110); Iron 30 UG/DL (65-175); Magnesium 2.2 mg/dL (1.5-2.4); Phosphorus 4.3 mg/dL (2.4-5.1); Potassium 4.6 mmol/L (3.5-5.5); Sodium 139 mmol/L (135-145); Total Bilirubin 0.2 mg/dL (0.3-1.2); Total Iron Binding Capacity 274 UG/DL (228-460); Total Protein 7.5 g/dL (6.2-8.2); Uric Acid 5.4 mg/dL (3.7-8.7)
[2024-04-03 11:31] LABS: Appearance,Urine Turbid (Clear); Bilirubin,Urine Negative (Negative); Blood,Urine Small (Negative); Color,Urine Yellow (Yellow); Ketones,Urine Negative (Negative); Nitrite,Urine Negative (Negative); Specific Gravity,Urine 1.019 (1.001-1.030)
[2024-04-03 11:35] LABS: Urine Creatinine 64.2 mg/dL (39.0-259.0)
[2024-04-03 12:20] LABS: Bacteria,Urine 4+ (None Seen); Yeast (UA) Present (None Seen)
[2024-04-03 13:51] LABS: DNA Double-Stranded Indetermin (Negative)
[2024-04-04 07:41] LABS: Angiotensin-1 Converting Enz. 23 U/L (8-52)
[2024-04-04 18:38] LABS: Vitamin D, 1, 25-Dihydroxy 18 pg/mL (20 - 79)
== END | disposition home or self-care (01) ==
LOC: LABWHC1 06:58
PROVIDERS: ATTEND Family Medicine
DX: N18.32 Chronic kidney disease, stage 3b (principal); N25.81 Secondary hyperparathyroidism of renal origin
CPT/HCPCS: 36415; 80053; 81001; 82043; 82164; 82306; 82570; 82652; 82728; 83540; 83550; 83735; 83970; 84100; 84550; 85027; 86225

== ENCOUNTER → 2024-04-12 | Outpatient (CLI) | payer MEDICARE ==
[2024-04-12 11:31] LABS: BUN/Creat Ratio 14.17 Ratio (12.00-20.00); Blood Urea Nitrogen 32.6 mg/dL (9.0-27.0); Calcium 9.3 mg/dL (8.7-10.3); Carbon Dioxide 24.4 mmol/L (21.6-31.8); Chloride 103 mmol/L (96-109); Glucose 156 mg/dL (70-110); Potassium 4.8 mmol/L (3.5-5.5); Sodium 140 mmol/L (135-145)
== END | disposition home or self-care (01) ==
LOC: LABWHC1 07:04
PROVIDERS: ATTEND Internal Medicine
DX: N18.32 Chronic kidney disease, stage 3b (principal)
CPT/HCPCS: 36415; 80048

== ENCOUNTER 2024-04-25 17:10 | Inpatient (IN) | payer MEDICARE ==
--- NOTE | 2024-04-25 17:25 | ED ---
Weakness HPI - General Chief complaint: Weakness Stated complaint: failure to thrive Time Seen by Provider: 04/25/24 17:13 Source: patient, RN notes reviewed Mode of arrival: EMS Limitations: no limitations - History of Present Illness Initial comments: This is a 64-year-old male who presents to the emergency department for weakness and failure to thrive. Patient states that he has felt increasingly weak over the last few days. He collapsed last night as a result of weakness and crawled into bed. He did not hit his head. He then called his sister this morning because of how he has been feeling. States that he has not been eating as he does not have the will to. He does have some nausea. Denies any abdominal pain, chest pain, or shortness of breath. He does have a large blister on his left index finger. Patient states that this is not painful. He only noticed this yesterday. MD Complaint: generalized weakness - Related Data Home Medications Medication Instructions Recorded Confirmed Lovastatin [Mevacor] 40 mg PO W/SUPPER 05/01/18 04/25/24 Ferrous Sulfate [Iron (65 MG 325 mg PO DAILY 06/17/22 04/25/24 Elemental)] Furosemide [Lasix] 40 mg PO BID@0900,1600 08/05/22 04/25/24 hydrALAZINE HCL [Apresoline] 100 mg PO TID 08/05/22 04/25/24 Isosorbide Mononitrate ER [Imdur] 30 mg PO DAILY 12/10/22 04/25/24 allopurinoL [Zyloprim] 100 mg PO BID 12/10/22 04/25/24 Famotidine [Pepcid] 20 mg PO HS 05/06/23 04/25/24 Glimepiride [Amaryl] 4 mg PO BID 05/06/23 04/25/24 carvediloL [Coreg] 25 mg PO BID-W/MEALS 05/06/23 04/25/24 metFORMIN HCL ER [Glucophage XR] 500 mg PO DAILY 05/06/23 04/25/24 Aspirin EC [Ecotrin Low Dose] 81 mg PO DAILY 04/25/24 04/25/24 Cholecalciferol [Vitamin D3 (25 25 mcg PO DAILY 04/25/24 04/25/24 Mcg = 1000 Iu)] Dapagliflozin Propanediol [Farxiga] 5 mg PO DAILY 04/25/24 04/25/24 Dulaglutide [Trulicity] 3 mg SQ TU 04/25/24 04/25/24 Magnesium Oxide [Mag-Ox] 400 mg PO DAILY 04/25/24 04/25/24 amLODIPine [Norvasc] 5 mg PO DAILY 04/25/24 04/25/24 lisinopriL [Zestril] 2.5 mg PO DAILY 04/25/24 04/25/24 Allergies Allergy/AdvReac Type Severity Reaction Status Date / Time No Known Allergies Allergy Verified 04/25/24 18:47 Review of Systems ROS Statement: Those systems with pertinent positive or pertinent negative responses have been documented in the HPI. ROS Other: All systems not noted in ROS Statement are negative. Past Medical History Past Medical History: Diabetes Mellitus, Hyperlipidemia History of Any Multi-Drug Resistant Organisms: None Reported Past Surgical History: Orthopedic Surgery, Tonsillectomy Additional Past Surgical History / Comment(s): tip of rt middle finger removed from work injury Past Anesthesia/Blood Transfusion Reactions: No Reported Reaction Smoking Status: Never smoker General Exam Limitations: no limitations General appearance: alert, in no apparent distress Head exam: Present: atraumatic, normocephalic, normal inspection Respiratory exam: Present: normal lung sounds bilaterally. Absent: respiratory distress, wheezes, rales, rhonchi, stridor Cardiovascular Exam: Present: regular rate, normal rhythm, normal heart sounds. Absent: systolic murmur, diastolic murmur, rubs, gallop, clicks GI/Abdominal exam: Present: soft, normal bowel sounds. Absent: distended, tenderness, guarding, rebound, rigid Extremities exam: Present: other (Infection at the tip of the left index finger that has had a prior amputation. There appears to be purulent material underneath the skin. No tenderness.) Neurological exam: Present: alert, oriented X3, CN II-XII intact Psychiatric exam: Present: normal affect, normal mood Skin exam: Present: warm, dry, intact, normal color. Absent: rash Course Vital Signs 04/25/24 04/25/24 04/25/24 17:25 18:00 18:20 Temperature 100.1 F H Pulse Rate 84 85 Pulse Rate [ Pulse Oximetery ] Respiratory 14 16 40 H Rate Blood Pressure 112/75 106/70 106/70 Blood Pressure [Right Arm] O2 Sat by Pulse 95 94 L Oximetry 04/25/24 04/25/24 04/25/24 18:30 18:40 19:12 Temperature 98.3 F Pulse Rate 82 84 Pulse Rate [ Pulse Oximetery ] Respiratory 18 15 Rate Blood Pressure 106/70 99/66 Blood Pressure [Right Arm] O2 Sat by Pulse 98 Oximetry 04/25/24 04/25/24 04/25/24 20:47 20:59 21:00 Temperature 98.1 F 97.5 F L 98.1 F Pulse Rate 68 65 Pulse Rate [ 55 L Pulse Oximetery ] Respiratory 20 14 20 Rate Blood Pressure 97/63 101/65 Blood Pressure 109/64 [Right Arm] O2 Sat by Pulse 97 96 91 L Oximetry 04/25/24 21:44 Temperature 98.0 F Pulse Rate 61 Pulse Rate [ Pulse Oximetery ] Respiratory 21 Rate Blood Pressure 108/65 Blood Pressure [Right Arm] O2 Sat by Pulse 96 Oximetry Medical Decision Making - Medical Decision Making This is a 64 year old male who presents to the emergency department for weakness and failure to thrive. Was pt. sent in by a medical professional or institution? @ -No Did you speak to anyone other than the patient for history? @ -No Did you review nursing and triage notes? @ -Yes, and I agree, it is accurate with regards to the patient's symptoms. Were old charts reviewed? @ -No Differential Diagnosis? @ -Differential Weakness: Hypoglycemia, shock, sepsis, hyponatremia, anemia, infection, HI, ETOH, adverse medicine reaction, overdose, stroke, this is not meant to be an all-inclusive list. EKG interpreted by me (3pts min.)? @ -EKG interpreted by me demonstrating the following: Sinus rhythm. Ventricular rate 84 bpm, MI interval 204 ms, QRS duration 106 ms, QTc 420 ms. X-rays interpreted by me (1pt min.)? @ -Chest x-ray obtained, my interpretation identifies no localized consolidations or infiltrates. X-ray of the left index finger obtained. My interpretation identifies no acute fractures. CT interpreted by me (1pt min.)? @ -Not obtained U/S interpreted by me (1pt. min.)? @ -Not obtained What testing was considered but not performed? (CT, X-rays, U/S, labs)? Why? @ -None What meds were considered but not given? Why? @ -None Did you discuss the management of the patient with other professionals? @ -Yes, Roma Griffin with [facility], who accepts the patient for admission. Did you reconcile home meds? @ -Yes Was smoking cessation discussed for >3mins.? @ -No Was critical care preformed (if so, how long)? @ -No Were there social determinants of health that impacted care today? How? ( Homelessness, low income, unemployed, alcoholism, drug addiction, transportation, low edu. Level, literacy, decrease access to med. care, penitentiary, rehab)? @ -No Was there de-escalation of care discussed even if they declined? (Discuss DNR or withdrawal of care, Hospice)? @ -No What co-morbidities impacted this encounter? (DM, HTN, Smoking, COPD, CAD, Cancer, CVA, Hep., AIDS, mental health diagnosis, sleep apnea, morbid obesity)? @ -DM, HLD Was patient admitted / discharged? @ -Admitted. Patient had a temperature of 100.1 F on arrival. Lab work also demonstrates leukocytosis with a white blood cell count of 15.6 and an CON. COVID, influenza, and RSV testing negative. Chest x-ray demonstrates low lung volumes with a generalized hazy appearance suggestive of atelectasis versus pulmonary edema. BNP 2250. X-ray of the left index finger demonstrates previous amputation of the middle phalanx with soft tissue swelling. There is no evidence of osseous erosion. He was given IV fluids and Tylenol, which improved the temperature. At the point of admission patient appeared to have signs of infection based on the findings in his left index finger as well as the elevated temperature and leukocytosis. Urinalysis was still pending at the time of admission. Rocephin administered to cover for both cellulitis and potential UTI. Patient admitted to medicine for further management of weakness, CON, and infection of left index finger. Consult placed for orthopedics for potential I&D of the finger. Physical and Occupational Therapy consulted as well due to patient's weakness and failure to thrive. Case discussed with Dr. Johnson. Chart reviewed the following day and urine was positive for infection. Urine was sent for culture. Patient had been given Rocephin. Undiagnosed new problem with uncertain prognosis? @ -None Drug Therapy requiring intensive monitoring for toxicity (Heparin, Nitro, Insulin, Cardizem)? @ -None Were any procedures done? @ -None Diagnosis/symptom? @ -Weakness, CON, left index finger infection, UTI Acute, or Chronic, or Acute on Chronic? @ -Acute Uncomplicated (without systemic symptoms) or Complicated (systemic symptoms)? @ -Complicated Side effects of treatment? @ -None Exacerbation, Progression, or Severe Exacerbation] @ -Not applicable Poses a threat to life or bodily function? @ -Yes, patient is currently unable to function on his own. - Lab Data Result diagrams: 04/25/24 17:49 04/25/24 17:49 Lab Results 04/25/24 04/25/24 04/25/24 Range/Units 17:49 17:49 17:49 WBC 15.6 H (3.8-10.6) k/uL RBC 4.21 L (4.30-5.90) m/uL Hgb 11.9 L (13.0-17.5) gm/dL Hct 35.9 L (39.0-53.0) % MCV 85.2 (80.0-100.0) fL MCH 28.3 (25.0-35.0) pg MCHC 33.2 (31.0-37.0) g/dL RDW 16.4 H (11.5-15.5) % Plt Count 333 (150-450) k/uL MPV 8.0 Neutrophils % 85 % Lymphocytes % 5 % Monocytes % 7 % Eosinophils % 1 % Basophils % 0 % Neutrophils # 13.3 H (1.3-7.7) k/uL Lymphocytes # 0.8 L (1.0-4.8) k/uL Monocytes # 1.1 H (0-1.0) k/uL Eosinophils # 0.1 (0-0.7) k/uL Basophils # 0.1 (0-0.2) k/uL Anisocytosis Slight PT 12.0 (10.0-12.5) sec INR 1.1 (<1.2) APTT 33.9 H (22.0-30.0) sec Sodium 131 L (137-145) mmol/L Potassium 4.4 (3.5-5.1) mmol/L Chloride 98 (98-107) mmol/L Carbon Dioxide 17 L (22-30) mmol/L Anion Gap 16 mmol/L BUN 71 H (9-20) mg/dL Creatinine 3.37 H (0.66-1.25) mg/dL Est GFR (CKD-EPI)AfAm 21 (>60 ml/min/1.73 sqM) Est GFR (CKD-EPI)NonAf 18 (>60 ml/min/1.73 sqM) Glucose 228 H (74-99) mg/dL Plasma Lactic Acid Portillo (0.7-2.0) mmol/L Calcium 8.7 (8.4-10.2) mg/dL Phosphorus 6.5 H (2.5-4.5) mg/dL Magnesium 2.1 (1.6-2.3) mg/dL Total Bilirubin 0.8 (0.2-1.3) mg/dL AST 46 (17-59) U/L ALT 63 H (4-49) U/L Alkaline Phosphatase 153 H (38-126) U/L Creatine Kinase 184 H (55-170) U/L Troponin I (0.000-0.034) ng/mL NT-Pro-B Natriuret Pep pg/mL Total Protein 6.5 (6.3-8.2) g/dL Albumin 3.5 (3.5-5.0) g/dL Influenza Type A (PCR) (Not Detectd) Influenza Type B (PCR) (Not Detectd) RSV (PCR) (Not Detectd) SARS-CoV-2 (PCR) (Not Detectd) 04/25/24 04/25/24 04/25/24 Range/Units 17:49 17:49 17:49 WBC (3.8-10.6) k/uL RBC (4.30-5.90) m/uL Hgb (13.0-17.5) gm/dL Hct (39.0-53.0) % MCV (80.0-100.0) fL MCH (25.0-35.0) pg MCHC (31.0-37.0) g/dL RDW (11.5-15.5) % Plt Count (150-450) k/uL MPV Neutrophils % % Lymphocytes % % Monocytes % % Eosinophils % % Basophils % % Neutrophils # (1.3-7.7) k/uL Lymphocytes # (1.0-4.8) k/uL Monocytes # (0-1.0) k/uL Eosinophils # (0-0.7) k/uL Basophils # (0-0.2) k/uL Anisocytosis PT (10.0-12.5) sec INR (<1.2) APTT (22.0-30.0) sec Sodium (137-145) mmol/L Potassium (3.5-5.1) mmol/L Chloride (98-107) mmol/L Carbon Dioxide (22-30) mmol/L Anion Gap mmol/L BUN (9-20) mg/dL Creatinine (0.66-1.25) mg/dL Est GFR (CKD-EPI)AfAm (>60 ml/min/1.73 sqM) Est GFR (CKD-EPI)NonAf (>60 ml/min/1.73 sqM) Glucose (74-99) mg/dL Plasma Lactic Acid Portillo 1.3 (0.7-2.0) mmol/L Calcium (8.4-10.2) mg/dL Phosphorus (2.5-4.5) mg/dL Magnesium (1.6-2.3) mg/dL Total Bilirubin (0.2-1.3) mg/dL AST (17-59) U/L ALT (4-49) U/L Alkaline Phosphatase (38-126) U/L Creatine Kinase (55-170) U/L Troponin I <0.012 (0.000-0.034) ng/mL NT-Pro-B Natriuret Pep pg/mL Total Protein (6.3-8.2) g/dL Albumin (3.5-5.0) g/dL Influenza Type A (PCR) Not Detected (Not Detectd) Influenza Type B (PCR) Not Detected (Not Detectd) RSV (PCR) Not Detected (Not Detectd) SARS-CoV-2 (PCR) Not Detected (Not Detectd) 04/25/24 Range/Units 17:49 WBC (3.8-10.6) k/uL RBC (4.30-5.90) m/uL Hgb (13.0-17.5) gm/dL Hct (39.0-53.0) % MCV (80.0-100.0) fL MCH (25.0-35.0) pg MCHC (31.0-37.0) g/dL RDW (11.5-15.5) % Plt Count (150-450) k/uL MPV Neutrophils % % Lymphocytes % % Monocytes % % Eosinophils % % Basophils % % Neutrophils # (1.3-7.7) k/uL Lymphocytes # (1.0-4.8) k/uL Monocytes # (0-1.0) k/uL Eosinophils # (0-0.7) k/uL Basophils # (0-0.2) k/uL Anisocytosis PT (10.0-12.5) sec INR (<1.2) APTT (22.0-30.0) sec Sodium (137-145) mmol/L Potassium (3.5-5.1) mmol/L Chloride (98-107) mmol/L Carbon Dioxide (22-30) mmol/L Anion Gap mmol/L BUN (9-20) mg/dL Creatinine (0.66-1.25) mg/dL Est GFR (CKD-EPI)AfAm (>60 ml/min/1.73 sqM) Est GFR (CKD-EPI)NonAf (>60 ml/min/1.73 sqM) Glucose (74-99) mg/dL Plasma Lactic Acid Portillo (0.7-2.0) mmol/L Calcium (8.4-10.2) mg/dL Phosphorus (2.5-4.5) mg/dL Magnesium (1.6-2.3) mg/dL Total Bilirubin (0.2-1.3) mg/dL AST (17-59) U/L ALT (4-49) U/L Alkaline Phosphatase (38-126) U/L Creatine Kinase (55-170) U/L Troponin I (0.000-0.034) ng/mL NT-Pro-B Natriuret Pep 2250 pg/mL Total Protein (6.3-8.2) g/dL Albumin (3.5-5.0) g/dL Influenza Type A (PCR) (Not Detectd) Influenza Type B (PCR) (Not Detectd) RSV (PCR) (Not Detectd) SARS-CoV-2 (PCR) (Not Detectd) - Radiology Data Radiology results: report reviewed, image reviewed Disposition Clinical Impression: Weakness, CON (acute kidney injury), Finger infection, UTI (urinary tract infection) Disposition: ADMITTED IP TO THIS HOSP
[2024-04-25] MEDS: ACETAMINOPHEN TAB 500 MG TAB PO STA (18:11)
[2024-04-25] MEDS: ONDANSETRON 4 MG/2 ML VIAL IVP STA (18:11)
[2024-04-25] MEDS: SODIUM CHLORIDE 0.9% 1,000 ML IV STA ×2 (18:12→18:58)
[2024-04-25 18:16] LABS: INR 1.1 (<1.2); Partial Thromboplastin Time 33.9 sec (22.0-30.0)
[2024-04-25 18:18] LABS: Anisocytosis Slight; Basophils # (A) 0.1 k/uL (0-0.2); Basophils % (A) 0 %; Eosinophils # (A) 0.1 k/uL (0-0.7); Eosinophils % (A) 1 %; HCT 35.9 % (39.0-53.0); HGB 11.9 gm/dL (13.0-17.5); Lymphocytes # (A) 0.8 k/uL (1.0-4.8); Lymphocytes % (A) 5 %; MCH 28.3 pg (25.0-35.0); MCHC 33.2 g/dL (31.0-37.0); MCV 85.2 fL (80.0-100.0); Monocytes # (A) 1.1 k/uL (0-1.0); Monocytes % (A) 7 %; Neutrophils # (A) 13.3 k/uL (1.3-7.7); Neutrophils % (A) 85 %; Platelet Count 333 k/uL (150-450); RBC 4.21 m/uL (4.30-5.90); RDW 16.4 % (11.5-15.5); WBC 15.6 k/uL (3.8-10.6)
[2024-04-25 18:30] LABS: ALT 63 U/L (4-49); AST 46 U/L (17-59); African American GFR (CKD) 21 (>60 ml/min/1.73 sqM); Albumin 3.5 g/dL (3.5-5.0); Alkaline Phosphatase 153 U/L (38-126); Anion Gap 16 mmol/L; Blood Urea Nitrogen 71 mg/dL (9-20); Calcium 8.7 mg/dL (8.4-10.2); Carbon Dioxide 17 mmol/L (22-30); Chloride 98 mmol/L (98-107); Creatine Kinase 184 U/L (55-170); Glucose 228 mg/dL (74-99); Magnesium 2.1 mg/dL (1.6-2.3); Non-African American GFR(CKD) 18 (>60 ml/min/1.73 sqM); Phosphorus 6.5 mg/dL (2.5-4.5); Potassium 4.4 mmol/L (3.5-5.1); Sodium 131 mmol/L (137-145); Total Bilirubin 0.8 mg/dL (0.2-1.3); Total Protein 6.5 g/dL (6.3-8.2)
[2024-04-25] MEDS: SODIUM CHLORIDE 0.9% 500 ML 500 ML IV STA (18:56)
--- NOTE | 2024-04-25 19:21 | XR ---
EXAMINATION TYPE: XR finger LT DATE OF EXAM: 04/25/2024 6:54 PM CLINICAL INDICATION:Male, 64 years old with history of Left index finger infection; [facility] COMPARISON: None TECHNIQUE: XR finger LT Frontal, lateral and oblique views were obtained. FINDINGS/IMPRESSION: 1. Amputation of the second digit middle phalanx. There is soft tissue swelling no obvious erosion o r evidence of osteomyelitis.. 2. No evidence of fracture.
--- NOTE | 2024-04-25 19:21 | XR ---
EXAMINATION TYPE: XR chest 2V DATE OF EXAM: 04/25/2024 6:54 PM CLINICAL INDICATION:Male, 64 years old with history of Weakness; [facility] COMPARISON: Chest radiographs from 06/17/2022 TECHNIQUE: XR chest 2V Frontal view of the chest. FINDINGS: Lungs/Pleura: Low lung volumes are present. There is no evidence of pleural effusion, focal consolida tion, or pneumothorax. Pulmonary vascularity: Unremarkable. Heart/mediastinum: Cardiomediastinal silhouette is enlarged and stable. Musculoskeletal: No acute osseous pathology. IMPRESSION: Low lung volumes with a generalized hazy appearance which could represent atelectasis versus pulmonar y edema correlate with serum BNP.
[2024-04-25] MEDS ORDERED: NALOXONE 0.4 MG/ML 1 ML VIAL IV PRN (19:39)
[2024-04-25] MEDS ORDERED: HYDROcodone/APAP 5-325MG 1 EACH TAB PO PRN (19:39)
[2024-04-25] MEDS ORDERED: ONDANSETRON 4 MG/2 ML VIAL IVP PRN (19:39)
[2024-04-25] MEDS ORDERED: MORPHINE SULFATE 4 MG/ML SYRINGE IV PRN (19:39)
[2024-04-25] MEDS ORDERED: ACETAMINOPHEN TAB 325 MG TAB PO PRN (19:39)
[2024-04-25 20:33] LABS: Appearance,Urine Turbid (Clear); Bacteria,Urine Many /hpf; Bilirubin,Urine Negative (Negative); Blood,Urine Moderate (Negative); Color,Urine Yellow; Glucose,Urine (UA) 3+ (Negative); Ketones,Urine Trace (Negative); Leukocyte Esterase,Urine Large (Negative); Nitrite,Urine Negative (Negative); PH, Urine 5.5 (5.0-8.0); Protein,Urine 2+ (Negative); RBC,Urine 19 /hpf (0-5); Specific Gravity,Urine 1.014 (1.001-1.035); Urobilinogen,Urine <2.0 mg/dL (<2.0); WBC,Urine >182 /hpf (0-5)
[2024-04-25] MEDS: allopurinoL 100 MG TAB PO SCH (20:45)
[2024-04-25] MEDS: FAMOTIDINE 20 MG TAB PO SCH (20:45)
[2024-04-25 20:56] LABS: Glucose,Whole Blood 185 mg/dL (70-110)
[2024-04-25] MEDS: GLIMEPIRIDE 4 MG TAB PO SCH (21:42)
[2024-04-25] MEDS: hydrALAZINE HCL 50 MG TAB PO SCH (22:31)
[2024-04-25 23:32] LABS: Glucose,Whole Blood 99 mg/dL (70-110)
[2024-04-26 05:59] LABS: Glucose,Whole Blood 84 mg/dL (70-110)
[2024-04-26] MEDS: carvediloL 12.5 MG TAB PO SCH (06:47)
[2024-04-26] MEDS: ACETAMINOPHEN TAB 500 MG TAB PO STA (07:20)
[2024-04-26] MEDS ORDERED: metFORMIN 500 MG TAB PO SCH (09:00)
[2024-04-26] MEDS: MAGNESIUM OXIDE 400 MG TAB PO SCH (10:07)
[2024-04-26] MEDS: DAPAGLIFLOZIN PROPANEDIOL 5 MG TABLET PO SCH (10:07)
[2024-04-26] MEDS: ISOSORBIDE MONONITRATE ER 30 MG TAB.ER.24H PO SCH (10:07)
[2024-04-26] MEDS: CHOLECALCIFEROL 25 MCG (1000 IU) TABLET PO SCH (10:07)
[2024-04-26] MEDS: ASPIRIN 81 MG PO SCH (10:07)
[2024-04-26] MEDS: amLODIPine 5 MG TAB PO SCH (10:07)
[2024-04-26] MEDS: FUROSEMIDE 40 MG TAB PO SCH (10:10)
[2024-04-26] MEDS: FERROUS SULFATE 325 MG TAB PO SCH (10:11)
[2024-04-26 10:44] LABS: Basophils # (A) 0.02 X 10*3/uL (0.00-0.10); Basophils % (A) 0.2 %; Eosinophils # (A) 0.04 X 10*3/uL (0.04-0.35); Eosinophils % (A) 0.3 %; Lymphocytes % (A) 4.7 %; MCH 27.6 pg (27.0-32.0); MCHC 33.3 g/dL (32.0-37.0); MCV 82.7 FL (80.0-97.0); Mean Platelet Volume 10.1 FL (9.5-12.2); Monocytes # (A) 0.92 X 10*3/uL (0.20-1.00); Monocytes % (A) 7.2 %; NRBC Per 100 WBC 0 X 10*3/uL (0.00-0.01); Neutrophils # (A) 11.06 X 10*3/uL (1.80-7.70); Platelet Count 326 X 10*3/uL (140-440); RBC 3.99 X 10*6/uL (4.40-5.60); RDW 16.5 % (11.5-14.5); WBC 12.71 X 10*3/uL (4.50-10.00)
[2024-04-26 10:55] LABS: BUN/Creat Ratio 21.12 Ratio (12.00-20.00); Blood Urea Nitrogen 69.7 mg/dL (9.0-27.0); Calcium 8.2 mg/dL (8.7-10.3); Carbon Dioxide 18.8 mmol/L (21.6-31.8); Chloride 101 mmol/L (96-109); Glucose 95 mg/dL (70-110); Potassium 4.3 mmol/L (3.5-5.5); Sodium 139 mmol/L (135-145)
--- NOTE | 2024-04-26 11:11 | P.HPIM ---
History of Present Illness This is a pleasant 64 years old male with past medical history of diabetes mellitus and hyperlipidemia Who presents because of generalized weakness. He states that he fell about 2 days ago when he was getting out of his restroom for urination He denies dizziness syncope. No chest pain or dyspnea. No abdominal pain vomiting and diarrhea Patient denies urgency or dysuria. He denies smoking alcohol or illicit drugs He states yesterday he noticed that there is a blister on the tip of his right index finger. He states that he has history of amputation of the distal phalanx about 1 year ago because of the infection get to the bone He denies smoking alcohol or illicit drugs On admission he was afebrile but this morning he had a fever of 103.2. He is slightly tachypneic and tachycardic Creatinine is above baseline of 2.0-2.2 currently 3.3 on admission Leukocytosis 15,012.7 Hemoglobin 11.0 Sodium 131 proBNP is 2250 Urine analysis is suspicious for infection EKG showing sinus rhythm at [address] changes Chest x-ray showing low volume with generalized hazy appearance could be atelectasis CHF versus pneumonia X-ray of the finger showed amputation of the second digit finger with soft tissue swelling with no obvious osteomyelitis and no fracture Review of Systems Review of systems CONSTITUTIONAL: No fever, no malaise, no fatigue. HEENT: No recent visual problems or hearing problems. Denied any sore throat. CARDIOVASCULAR: No orthopnea, PND, no palpitations, no syncope. PULMONARY: No shortness of breath, no cough, no hemoptysis. GASTROINTESTINAL: No diarrhea, no nausea, no vomiting, no abdominal pain. Normoactive bowel sounds. NEUROLOGICAL: No headaches, no weakness, no numbness. HEMATOLOGICAL: Denies any bleeding or petechiae. GENITOURINARY: Denies any burning micturition, frequency, or urgency. MUSCULOSKELETAL/RHEUMATOLOGICAL: Denies any joint pain, swelling, or any muscle pain. ENDOCRINE: Denies any polyuria or polydipsia. Past Medical History Past Medical History: Diabetes Mellitus, Hyperlipidemia History of Any Multi-Drug Resistant Organisms: None Reported Past Surgical History: Orthopedic Surgery, Tonsillectomy Additional Past Surgical History / Comment(s): tip of rt middle finger removed from work injury Past Anesthesia/Blood Transfusion Reactions: No Reported Reaction Smoking Status: Never smoker Medications and Allergies Home Medications Medication Instructions Recorded Confirmed Type Lovastatin [Mevacor] 40 mg PO W/SUPPER 05/01/18 04/25/24 History Ferrous Sulfate [Iron (65 MG 325 mg PO DAILY 06/17/22 04/25/24 History Elemental)] Furosemide [Lasix] 40 mg PO BID@0900,1600 08/05/22 04/25/24 History hydrALAZINE HCL [Apresoline] 100 mg PO TID 08/05/22 04/25/24 History Isosorbide Mononitrate ER [Imdur] 30 mg PO DAILY 12/10/22 04/25/24 History allopurinoL [Zyloprim] 100 mg PO BID 12/10/22 04/25/24 History Famotidine [Pepcid] 20 mg PO HS 05/06/23 04/25/24 History Glimepiride [Amaryl] 4 mg PO BID 05/06/23 04/25/24 History carvediloL [Coreg] 25 mg PO BID-W/MEALS 05/06/23 04/25/24 History metFORMIN HCL ER [Glucophage XR] 500 mg PO DAILY 05/06/23 04/25/24 History Aspirin EC [Ecotrin Low Dose] 81 mg PO DAILY 04/25/24 04/25/24 History Cholecalciferol [Vitamin D3 (25 25 mcg PO DAILY 04/25/24 04/25/24 History Mcg = 1000 Iu)] Dapagliflozin Propanediol [Farxiga] 5 mg PO DAILY 04/25/24 04/25/24 History Dulaglutide [Trulicity] 3 mg SQ TU 04/25/24 04/25/24 History Magnesium Oxide [Mag-Ox] 400 mg PO DAILY 04/25/24 04/25/24 History amLODIPine [Norvasc] 5 mg PO DAILY 04/25/24 04/25/24 History lisinopriL [Zestril] 2.5 mg PO DAILY 04/25/24 04/25/24 History Allergies Allergy/AdvReac Type Severity Reaction Status Date / Time No Known Allergies Allergy Verified 04/25/24 18:47 Physical Exam Vitals: Vital Signs Temp Pulse Pulse Resp BP BP Pulse Ox 04/26/24 09:51 96 04/26/24 07:10 103.2 F H 94 20 145/72 96 04/26/24 05:58 98.0 F 93 15 139/73 04/26/24 01:42 97.4 F L 53 L 18 110/63 97 04/25/24 21:44 98.0 F 61 21 108/65 96 04/25/24 21:00 98.1 F 65 20 101/65 91 L 04/25/24 20:59 97.5 F L 55 L 14 109/64 96 04/25/24 20:47 98.1 F 68 20 97/63 97 04/25/24 19:12 98.3 F 84 15 99/66 98 04/25/24 18:40 106/70 04/25/24 18:30 82 18 04/25/24 18:20 40 H 106/70 04/25/24 18:00 85 16 106/70 94 L 04/25/24 17:25 100.1 F H 84 14 112/75 95 Intake and Output 04/25/24 04/26/24 04/26/24 22:59 06:59 14:59 Other: # Voids 1 # Bowel Movements 1 Weight 74.843 kg GENERAL: The patient is alert and oriented x3, not in any acute distress. Well developed, well nourished. HEENT: Pupils are round and equally reacting to light. EOMI. No scleral icterus. No conjunctival pallor. Normocephalic, atraumatic. No pharyngeal erythema. No thyromegaly. CARDIOVASCULAR: S1 and S2 present. No murmurs, rubs, or gallops. PULMONARY: Chest is clear to auscultation, no wheezing , no crackles. ABDOMEN: Soft, nontender, nondistended, normoactive bowel sounds. No palpable organomegaly. MUSCULOSKELETAL: No joint swelling or deformity. -EXTREMITIES: No cyanosis, clubbing, or pedal edema. A blister at the tip of the right index finger with history of amputation of the distal phalanx NEUROLOGICAL: Gross neurological examination did not reveal any focal deficits. SKIN: No rashes. no petechiae. Results CBC & Chem 7: 04/26/24 07:11 04/25/24 17:49 Labs: Abnormal Lab Results - Last 24 Hours (Table) 04/25/24 04/25/24 04/25/24 Range/Units 17:49 17:49 17:49 WBC 15.6 H (3.8-10.6) k/uL RBC 4.21 L (4.30-5.90) m/uL Hgb 11.9 L (13.0-17.5) gm/dL Hct 35.9 L (39.0-53.0) % RDW 16.4 H (11.5-15.5) % Immature Gran # (0.00-0.04) X 10*3/uL Neutrophils # 13.3 H (1.3-7.7) k/uL Lymphocytes # 0.8 L (1.0-4.8) k/uL Monocytes # 1.1 H (0-1.0) k/uL APTT 33.9 H (22.0-30.0) sec Sodium 131 L (137-145) mmol/L Carbon Dioxide 17 L (22-30) mmol/L BUN 71 H (9-20) mg/dL Creatinine 3.37 H (0.66-1.25) mg/dL Glucose 228 H (74-99) mg/dL POC Glucose (mg/dL) (70-110) mg/dL Phosphorus 6.5 H (2.5-4.5) mg/dL ALT 63 H (4-49) U/L Alkaline Phosphatase 153 H (38-126) U/L Creatine Kinase 184 H (55-170) U/L Urine Protein (Negative) Urine Glucose (UA) (Negative) Urine Ketones (Negative) Urine Blood (Negative) Ur Leukocyte Esterase (Negative) Urine RBC (0-5) /hpf Urine WBC (0-5) /hpf Urine WBC Clumps (None) /hpf Urine Bacteria (None) /hpf 04/25/24 04/25/24 04/26/24 Range/Units 20:00 20:54 07:11 WBC 12.71 H (3.8-10.6) k/uL RBC 3.99 L (4.30-5.90) m/uL Hgb 11.0 L (13.0-17.5) gm/dL Hct 33.0 L (39.0-53.0) % RDW 16.5 H (11.5-15.5) % Immature Gran # 0.07 H (0.00-0.04) X 10*3/uL Neutrophils # 11.06 H (1.3-7.7) k/uL Lymphocytes # 0.60 L (1.0-4.8) k/uL Monocytes # (0-1.0) k/uL APTT (22.0-30.0) sec Sodium (137-145) mmol/L Carbon Dioxide (22-30) mmol/L BUN (9-20) mg/dL Creatinine (0.66-1.25) mg/dL Glucose (74-99) mg/dL POC Glucose (mg/dL) 185 H (70-110) mg/dL Phosphorus (2.5-4.5) mg/dL ALT (4-49) U/L Alkaline Phosphatase (38-126) U/L Creatine Kinase (55-170) U/L Urine Protein 2+ H (Negative) Urine Glucose (UA) 3+ H (Negative) Urine Ketones Trace H (Negative) Urine Blood Moderate H (Negative) Ur Leukocyte Esterase Large H (Negative) Urine RBC 19 H (0-5) /hpf Urine WBC >182 H (0-5) /hpf Urine WBC Clumps Many H (None) /hpf Urine Bacteria Many H (None) /hpf Thrombosis Risk Factor Assmnt - Choose All That Apply Any of the Below Risk Factors Present?: Yes Each Factor Represents 1 point: Obesity (BMI >25) Other Risk Factors: Yes Each Risk Factor Represents 2 Points: Age 61-74 years Thrombosis Risk Factor Assessment Total Risk Factor Score: 3 Thrombosis Risk Factor Assessment Level: Moderate Risk Assessment and Plan Assessment: Acute urinary tract infection/pyelonephritis Sepsis secondary to above Acute kidney injury on CKD Stage III Nausea and poor appetite Generalized weakness and fall A blister on the tip of his already amputated right index finger ( h/o osteomyeitits about 1 yr ago as per pt) Diabetes mellitus Hyperlipidemia Plan: Start ceftriaxone Follow-up urine culture Continue with insulin sliding scale while holding metformin and Amaryl Orthopedic team already consulted Follow-up creatinine this morning if no improvement may consider nephrology consult Labs and medication were reviewed.. Continue same treatment. Continue with symptomatic treatment. Resume home medication. Monitor labs and vitals. DVT and GI prophylaxis. Further recommendations as per clinical course of the patient DVT prophylaxis: Subcutaneous heparin GI Prophylaxis: Pepcid PT/OT: Pending Prognosis is guarded
[2024-04-26 11:35] LABS: Glucose,Whole Blood 87 mg/dL (70-110)
--- NOTE | 2024-04-26 12:25 | P.CNOR ---
History of Present Illness - HPI Consult date: 04/26/24 Consult reason: other (left index finger blister) History of present illness: Gopi is a 64-year-old male who is well known to our office for a left index finger infection in September of this year. He underwent a partial amputation of fingertip on 10/18/[address] Gomes. He had healed well after that surgery with no further issues. He now presents to the hospital with weakness and was admitted with acute kidney injury. The patient was found to have a blister on the tip of his left index finger and orthopedic hand surgery was consulted. he states he does not remember any trauma to the finger lately but does have numbness in all his fingertips. He denies fever and chills. Review of Systems Constitutional: Denies chills, Denies fever Cardiovascular: Denies chest pain, Denies shortness of breath Respiratory: Denies cough Gastrointestinal: Denies diarrhea, Denies nausea, Denies vomiting Musculoskeletal: left: hand stiffness (left index finger blistering) Past Medical History Past Medical History: Diabetes Mellitus, Hyperlipidemia History of Any Multi-Drug Resistant Organisms: None Reported Past Surgical History: Orthopedic Surgery, Tonsillectomy Additional Past Surgical History / Comment(s): tip of rt middle finger removed from work injury Past Anesthesia/Blood Transfusion Reactions: No Reported Reaction Smoking Status: Never smoker Medications and Allergies Home Medications Medication Instructions Recorded Confirmed Type Lovastatin [Mevacor] 40 mg PO W/SUPPER 05/01/18 04/25/24 History Ferrous Sulfate [Iron (65 MG 325 mg PO DAILY 06/17/22 04/25/24 History Elemental)] Furosemide [Lasix] 40 mg PO BID@0900,1600 08/05/22 04/25/24 History hydrALAZINE HCL [Apresoline] 100 mg PO TID 08/05/22 04/25/24 History Isosorbide Mononitrate ER [Imdur] 30 mg PO DAILY 12/10/22 04/25/24 History allopurinoL [Zyloprim] 100 mg PO BID 12/10/22 04/25/24 History Famotidine [Pepcid] 20 mg PO HS 05/06/23 04/25/24 History Glimepiride [Amaryl] 4 mg PO BID 05/06/23 04/25/24 History carvediloL [Coreg] 25 mg PO BID-W/MEALS 05/06/23 04/25/24 History metFORMIN HCL ER [Glucophage XR] 500 mg PO DAILY 05/06/23 04/25/24 History Aspirin EC [Ecotrin Low Dose] 81 mg PO DAILY 04/25/24 04/25/24 History Cholecalciferol [Vitamin D3 (25 25 mcg PO DAILY 04/25/24 04/25/24 History Mcg = 1000 Iu)] Dapagliflozin Propanediol [Farxiga] 5 mg PO DAILY 04/25/24 04/25/24 History Dulaglutide [Trulicity] 3 mg SQ TU 04/25/24 04/25/24 History Magnesium Oxide [Mag-Ox] 400 mg PO DAILY 04/25/24 04/25/24 History amLODIPine [Norvasc] 5 mg PO DAILY 04/25/24 04/25/24 History lisinopriL [Zestril] 2.5 mg PO DAILY 04/25/24 04/25/24 History Allergies Allergy/AdvReac Type Severity Reaction Status Date / Time No Known Allergies Allergy Verified 04/25/24 18:47 Physical Examination The patient is a 64-year-old male in no acute distress. He is alert and oriented 3. Exam of the left index finger reveals a fluid-filled blister. There is no proximal red streaking or pain in the finger. No pain along the flexor tendons. No signs or symptoms of infection noted at this time. There is decreased sensation to the fingertips his left hand. Circulatory status is intact. Results X-ray of the left index finger reveals no sign of osteomyelitis. Previous amputation to the middle phalanx level. - Labs Labs: Abnormal Lab Results - Last 24 Hours (Table) 04/25/24 04/25/24 04/25/24 Range/Units 17:49 17:49 17:49 WBC 15.6 H (3.8-10.6) k/uL RBC 4.21 L (4.30-5.90) m/uL Hgb 11.9 L (13.0-17.5) gm/dL Hct 35.9 L (39.0-53.0) % RDW 16.4 H (11.5-15.5) % Immature Gran # (0.00-0.04) X 10*3/uL Neutrophils # 13.3 H (1.3-7.7) k/uL Lymphocytes # 0.8 L (1.0-4.8) k/uL Monocytes # 1.1 H (0-1.0) k/uL APTT 33.9 H (22.0-30.0) sec Sodium 131 L (137-145) mmol/L Carbon Dioxide 17 L (22-30) mmol/L Anion Gap (4.00-12.00) mmol/L BUN 71 H (9-20) mg/dL Creatinine 3.37 H (0.66-1.25) mg/dL Est GFR (CKD-EPI) (>=60) BUN/Creatinine Ratio (12.00-20.00) Ratio Glucose 228 H (74-99) mg/dL POC Glucose (mg/dL) (70-110) mg/dL Calcium (8.7-10.3) mg/dL Phosphorus 6.5 H (2.5-4.5) mg/dL ALT 63 H (4-49) U/L Alkaline Phosphatase 153 H (38-126) U/L Creatine Kinase 184 H (55-170) U/L Urine Protein (Negative) Urine Glucose (UA) (Negative) Urine Ketones (Negative) Urine Blood (Negative) Ur Leukocyte Esterase (Negative) Urine RBC (0-5) /hpf Urine WBC (0-5) /hpf Urine WBC Clumps (None) /hpf Urine Bacteria (None) /hpf 04/25/24 04/25/24 04/26/24 Range/Units 20:00 20:54 07:11 WBC 12.71 H (3.8-10.6) k/uL RBC 3.99 L (4.30-5.90) m/uL Hgb 11.0 L (13.0-17.5) gm/dL Hct 33.0 L (39.0-53.0) % RDW 16.5 H (11.5-15.5) % Immature Gran # 0.07 H (0.00-0.04) X 10*3/uL Neutrophils # 11.06 H (1.3-7.7) k/uL Lymphocytes # 0.60 L (1.0-4.8) k/uL Monocytes # (0-1.0) k/uL APTT (22.0-30.0) sec Sodium (137-145) mmol/L Carbon Dioxide (22-30) mmol/L Anion Gap (4.00-12.00) mmol/L BUN (9-20) mg/dL Creatinine (0.66-1.25) mg/dL Est GFR (CKD-EPI) (>=60) BUN/Creatinine Ratio (12.00-20.00) Ratio Glucose (74-99) mg/dL POC Glucose (mg/dL) 185 H (70-110) mg/dL Calcium (8.7-10.3) mg/dL Phosphorus (2.5-4.5) mg/dL ALT (4-49) U/L Alkaline Phosphatase (38-126) U/L Creatine Kinase (55-170) U/L Urine Protein 2+ H (Negative) Urine Glucose (UA) 3+ H (Negative) Urine Ketones Trace H (Negative) Urine Blood Moderate H (Negative) Ur Leukocyte Esterase Large H (Negative) Urine RBC 19 H (0-5) /hpf Urine WBC >182 H (0-5) /hpf Urine WBC Clumps Many H (None) /hpf Urine Bacteria Many H (None) /hpf 04/26/24 Range/Units 07:11 WBC (3.8-10.6) k/uL RBC (4.30-5.90) m/uL Hgb (13.0-17.5) gm/dL Hct (39.0-53.0) % RDW (11.5-15.5) % Immature Gran # (0.00-0.04) X 10*3/uL Neutrophils # (1.3-7.7) k/uL Lymphocytes # (1.0-4.8) k/uL Monocytes # (0-1.0) k/uL APTT (22.0-30.0) sec Sodium (137-145) mmol/L Carbon Dioxide 18.8 L (22-30) mmol/L Anion Gap 19.20 H (4.00-12.00) mmol/L BUN 69.7 H (9-20) mg/dL Creatinine 3.3 H (0.66-1.25) mg/dL Est GFR (CKD-EPI) 20 L (>=60) BUN/Creatinine Ratio 21.12 H (12.00-20.00) Ratio Glucose (74-99) mg/dL POC Glucose (mg/dL) (70-110) mg/dL Calcium 8.2 L (8.7-10.3) mg/dL Phosphorus (2.5-4.5) mg/dL ALT (4-49) U/L Alkaline Phosphatase (38-126) U/L Creatine Kinase (55-170) U/L Urine Protein (Negative) Urine Glucose (UA) (Negative) Urine Ketones (Negative) Urine Blood (Negative) Ur Leukocyte Esterase (Negative) Urine RBC (0-5) /hpf Urine WBC (0-5) /hpf Urine WBC Clumps (None) /hpf Urine Bacteria (None) /hpf H & H 04/25/24 04/26/24 Range/Units 17:49 07:11 Hgb 11.9 L 11.0 L (13.0-17.5) gm/dL Hct 35.9 L 33.0 L (39.0-53.0) % Coagulation 04/25/24 Range/Units 17:49 INR 1.1 (<1.2) Result Diagrams: 04/26/24 07:11 04/26/24 07:11 Assessment and Plan (1) Blister of finger without infection Current Visit: Yes Status: Acute Code(s): S60.429A - BLISTER (NONTHERMAL) OF UNSPECIFIED FINGER, INIT ENCNTR SNOMED Code(s): 10060263 (2) CON (acute kidney injury) Current Visit: Yes Status: Acute Code(s): N17.9 - ACUTE KIDNEY FAILURE, UNSPECIFIED SNOMED Code(s): 36141782 (3) UTI (urinary tract infection) Current Visit: Yes Status: Acute Code(s): N39.0 - URINARY TRACT INFECTION, SITE NOT SPECIFIED SNOMED Code(s): 10679387 (4) Weakness Current Visit: Yes Status: Acute Code(s): R53.1 - WEAKNESS SNOMED Code(s): 10623836 Plan: The clinical and x-ray findings were discussed with the patient. The case was discussed at length with Dr. Gomes. The patient does not have obvious signs of infection in the left index finger at this time. We will give the finger more time to see what the blister will do. Nursing staff will place on a dressing to protect the finger today. We will continue to follow patient while he is in the hospital and he likely follow-up on an outpatient basis.
[2024-04-26 16:24] LABS: Glucose,Whole Blood 111 mg/dL (70-110)
[2024-04-26] MEDS: ATORVASTATIN 10 MG TAB PO SCH (17:13)
[2024-04-26 20:52] LABS: Glucose,Whole Blood 111 mg/dL (70-110)
[2024-04-27 07:07] LABS: Glucose,Whole Blood 62 mg/dL (70-110)
[2024-04-27 07:49] LABS: Glucose,Whole Blood 71 mg/dL (70-110)
--- NOTE | 2024-04-27 09:12 | P.PN ---
Subjective Progress Note Date: 04/27/24 Principal diagnosis: Left index finger blistering Gopi is a 64-year-old male who is well known to our office for a left index finger infection in September of this year. He underwent a partial amputation of fingertip on 10/18/[address] Gomes. He had healed well after that surgery with no further issues. He now presents to the hospital with weakness and was admitted with acute kidney injury. The patient was found to have a blister on the tip of his left index finger and orthopedic hand surgery was consulted. he states he does not remember any trauma to the finger lately but does have numbness in all his fingertips. He denies fever and chills. 04/27/2024: No changes to the finger. No signs of infection at this time. No new complaints. Objective - Vital Signs Vital signs: Vital Signs Temp 98.1 F 04/27/24 07:23 Pulse 75 04/27/24 07:23 Resp 17 04/27/24 07:23 BP 152/78 04/27/24 07:23 Pulse Ox 96 04/27/24 07:23 FiO2 Intake & Output 04/26/24 04/27/24 04/27/24 18:59 06:59 18:59 Output Total 725 Balance -725 Output: Urine 450 Post Void Residual 275 Other: # Voids 1 - Exam The patient is a 64-year-old male in no acute distress. He is alert and oriented 3. Exam of the left index finger reveals a fluid-filled blister. There is no proximal red streaking or pain in the finger. No pain along the flexor tendons. No signs or symptoms of infection noted at this time. There is decreased sensation to the fingertips his left hand. Circulatory status is intact. - Labs CBC & Chem 7: 04/26/24 07:11 04/26/24 07:11 Labs: Abnormal Lab Results - Last 24 Hours (Table) 04/26/24 04/26/24 04/26/24 Range/Units 07:11 07:11 16:23 WBC 12.71 H (4.50-10.00) X 10*3/uL RBC 3.99 L (4.40-5.60) X 10*6/uL Hgb 11.0 L (13.0-17.0) g/dL Hct 33.0 L (39.6-50.0) % RDW 16.5 H (11.5-14.5) % Immature Gran # 0.07 H (0.00-0.04) X 10*3/uL Neutrophils # 11.06 H (1.80-7.70) X 10*3/uL Lymphocytes # 0.60 L (0.90-5.00) X 10*3/uL Carbon Dioxide 18.8 L (21.6-31.8) mmol/L Anion Gap 19.20 H (4.00-12.00) mmol/L BUN 69.7 H (9.0-27.0) mg/dL Creatinine 3.3 H (0.6-1.5) mg/dL Est GFR (CKD-EPI) 20 L (>=60) BUN/Creatinine Ratio 21.12 H (12.00-20.00) Ratio POC Glucose (mg/dL) 111 H (70-110) mg/dL Calcium 8.2 L (8.7-10.3) mg/dL 04/26/24 04/27/24 Range/Units 20:50 07:06 WBC (4.50-10.00) X 10*3/uL RBC (4.40-5.60) X 10*6/uL Hgb (13.0-17.0) g/dL Hct (39.6-50.0) % RDW (11.5-14.5) % Immature Gran # (0.00-0.04) X 10*3/uL Neutrophils # (1.80-7.70) X 10*3/uL Lymphocytes # (0.90-5.00) X 10*3/uL Carbon Dioxide (21.6-31.8) mmol/L Anion Gap (4.00-12.00) mmol/L BUN (9.0-27.0) mg/dL Creatinine (0.6-1.5) mg/dL Est GFR (CKD-EPI) (>=60) BUN/Creatinine Ratio (12.00-20.00) Ratio POC Glucose (mg/dL) 111 H 62 L (70-110) mg/dL Calcium (8.7-10.3) mg/dL Microbiology - Last 24 Hours (Table) 04/25/24 20:00 Urine Culture - Preliminary Urine,Voided Gram Neg Bacilli Assessment and Plan (1) Blister of finger without infection Current Visit: Yes Status: Acute Code(s): S60.429A - BLISTER (NONTHERMAL) OF UNSPECIFIED FINGER, INIT ENCNTR SNOMED Code(s): 42624736 (2) CON (acute kidney injury) Current Visit: Yes Status: Acute Code(s): N17.9 - ACUTE KIDNEY FAILURE, UNSPECIFIED SNOMED Code(s): 01167567 (3) UTI (urinary tract infection) Current Visit: Yes Status: Acute Code(s): N39.0 - URINARY TRACT INFECTION, SITE NOT SPECIFIED SNOMED Code(s): 29076165 (4) Weakness Current Visit: Yes Status: Acute Code(s): R53.1 - WEAKNESS SNOMED Code(s): 59953856 Plan: The clinical and x-ray findings were discussed with the patient. The case was discussed at length with Dr. Gomes. The patient does not have obvious signs of infection in the left index finger at this time. We will give the finger more time to see what the blister will do. Dressing as needed to the finger. We will continue to follow patient while he is in the hospital and he likely follow-up on an outpatient basis.
--- NOTE | 2024-04-27 13:10 | P.NPCON ---
History of Present Illness - Reason for Consult Consult date: 04/27/24 acute renal failure - History of Present Illness Mr. York is a 64 year old male with past medical history of Chronic kidney disease stage 3B baseline creatinine of 2 admitted to the floor 3 days ago due to generalized weakness and had a fall while in the bathroom. He was seen this morning at bedside. No overnight events reported per nurse. He denied any fever, chills, shortness of breath, chest pain, diarrhea, constipation, and leg swelling. He is able to urinate but still reports some burning sensation. 450 ml of urine charted. Hypotension noted with systolic blood pressure in the 90s. No NSAIDs noted. Patient is maintained on MYLES inhibitors. Currently on hold. His urinalysis showed large amount of leukocyte esterase and wbc at 182 on 04/25. Urine culture on 04/25 showed gram negative bacilli. He is noted to have increased creatinine at 3.3 on 04/26 compare to his baseline of 2.0-2.3 in March of 2024. Review of Systems Constitutional: Reports as per HPI Past Medical History Past Medical History: Diabetes Mellitus, Hyperlipidemia History of Any Multi-Drug Resistant Organisms: None Reported Past Surgical History: Orthopedic Surgery, Tonsillectomy Additional Past Surgical History / Comment(s): tip of rt middle finger removed from work injury Past Anesthesia/Blood Transfusion Reactions: No Reported Reaction Smoking Status: Never smoker Medications and Allergies Home Medications Medication Instructions Recorded Confirmed Type Lovastatin [Mevacor] 40 mg PO W/SUPPER 05/01/18 04/25/24 History Ferrous Sulfate [Iron (65 MG 325 mg PO DAILY 06/17/22 04/25/24 History Elemental)] Furosemide [Lasix] 40 mg PO BID@0900,1600 08/05/22 04/25/24 History hydrALAZINE HCL [Apresoline] 100 mg PO TID 08/05/22 04/25/24 History Isosorbide Mononitrate ER [Imdur] 30 mg PO DAILY 12/10/22 04/25/24 History allopurinoL [Zyloprim] 100 mg PO BID 12/10/22 04/25/24 History Famotidine [Pepcid] 20 mg PO HS 05/06/23 04/25/24 History Glimepiride [Amaryl] 4 mg PO BID 05/06/23 04/25/24 History carvediloL [Coreg] 25 mg PO BID-W/MEALS 05/06/23 04/25/24 History metFORMIN HCL ER [Glucophage XR] 500 mg PO DAILY 05/06/23 04/25/24 History Aspirin EC [Ecotrin Low Dose] 81 mg PO DAILY 04/25/24 04/25/24 History Cholecalciferol [Vitamin D3 (25 25 mcg PO DAILY 04/25/24 04/25/24 History Mcg = 1000 Iu)] Dapagliflozin Propanediol [Farxiga] 5 mg PO DAILY 04/25/24 04/25/24 History Dulaglutide [Trulicity] 3 mg SQ TU 04/25/24 04/25/24 History Magnesium Oxide [Mag-Ox] 400 mg PO DAILY 04/25/24 04/25/24 History amLODIPine [Norvasc] 5 mg PO DAILY 04/25/24 04/25/24 History lisinopriL [Zestril] 2.5 mg PO DAILY 04/25/24 04/25/24 History Allergies Allergy/AdvReac Type Severity Reaction Status Date / Time No Known Allergies Allergy Verified 04/25/24 18:47 Physical Exam Vitals: Vital Signs Temp Pulse Resp BP Pulse Ox 04/27/24 07:23 98.1 F 75 17 152/78 96 04/27/24 02:26 97.7 F 65 17 135/60 97 04/26/24 19:34 97.9 F 69 19 138/62 95 04/26/24 14:25 97.5 F L 69 18 117/63 94 L Intake and Output 04/26/24 04/27/24 04/27/24 22:59 06:59 14:59 Output Total 450 Balance -450 Output: Urine 450 Other: Voiding Method Diaper # Voids 1 General: Alert and oriented, not in acute distress Cardiovascular: Regular heart rate, no murmurs Respiratory: Clear to auscultation bilaterally, no wheezing/rhonchi/stridor Abdominal: Soft, nontender to palpation, nondistended Extremity: No leg swelling Results - Lab Results Most recent lab results Calcium 8.2 mg/dL (8.7-10.3) L 04/26/24 07:11 Phosphorus 6.5 mg/dL (2.5-4.5) H 04/25/24 17:49 Magnesium 2.1 mg/dL (1.6-2.3) 04/25/24 17:49 04/26/24 07:11 04/26/24 07:11 Assessment and Plan Assessment: 1. Acute kidney injury, non oliguric ATN secondary to hypotension, status post IV fluids, hold lasix, UA suggested of UTI, ultrasound on 06/07/23 showed no obstructive uropathy - creatinine decreased from 3.37 on 04/25 to 3.3 on 04/26. 2. Urinary tract infection, urine culture revealed gram negative bacilli, urinalysis showed large leukocyte esterase, and >182 WBC, patient is maintained on Farxega, this may need to be discontinued if he continues to have repeated UTI - patient is on rocephin 2 gm. 3. Chronic kidney disease, stage 3B, secondary to diabetic kidney disease with baseline creatinine around 2mg/dl, type 2 diabetes maintained on metformin, glimepiride, farxega, trulicity 4. Hypertension with CKD stage 3B, maintained on coreg, norvasc, and lisinopril. Lisinopril is on hold. Patient also on hydralazine PO. Plan: 1. Add gentle IV hydration 2. Hold diuretics 3. Continue to hold MYLES inhibitors 4. Avoid hypotension 5. May continue Farxega for now but may need to hold if patient has repeated UTIs 6. Check ultrasound if renal function does not improve further. 7. Continue to hold metformin for now. 8. Repeat labs in AM. Thank you for the consultation we will continue to follow this care during this hospitalization. Patient is seen and examined with the resident. Agree with findings, assessment and plan.
[2024-04-27] MEDS: SODIUM CHLORIDE 0.9% 1,000 ML IV SCH (15:50)
--- NOTE | 2024-04-27 16:59 | P.PN ---
Subjective Progress Note Date: 04/27/24 64 years old male with past medical history of diabetes mellitus and hyperlipidemia Who presents because of generalized weakness. He states that he fell about 2 days ago when he was getting out of his restroom for urination He denies dizziness syncope. No chest pain or dyspnea. No abdominal pain vomiting and diarrhea Patient denies urgency or dysuria. He denies smoking alcohol or illicit drugs He states yesterday he noticed that there is a blister on the tip of his right index finger. He states that he has history of amputation of the distal phalanx about 1 year ago because of the infection get to the bone He denies smoking alcohol or illicit drugs On admission he was afebrile but this morning he had a fever of 103.2. He is slightly tachypneic and tachycardic Creatinine is above baseline of 2.0-2.2 currently 3.3 on admission Leukocytosis 15,012.7 Hemoglobin 11.0 Sodium 131 proBNP is 2250 Urine analysis is suspicious for infection EKG showing sinus rhythm at [address] changes Chest x-ray showing low volume with generalized hazy appearance could be atelectasis CHF versus pneumonia X-ray of the finger showed amputation of the second digit finger with soft tissue swelling with no obvious osteomyelitis and no fracture Objective - Vital Signs Vital signs: Vital Signs Temp 98.1 F 04/27/24 07:23 Pulse 75 04/27/24 07:23 Resp 17 04/27/24 07:23 BP 152/78 04/27/24 07:23 Pulse Ox 96 04/27/24 07:23 FiO2 Intake & Output 04/26/24 04/27/24 04/27/24 18:59 06:59 18:59 Output Total 725 Balance -725 Output: Urine 450 Post Void Residual 275 Other: Voiding Method Diaper # Voids 1 - Exam GENERAL: The patient is alert and oriented x3, not in any acute distress. Well developed, well nourished. HEENT: Pupils are round and equally reacting to light. EOMI. No scleral icterus. No conjunctival pallor. Normocephalic, atraumatic. No pharyngeal erythema. No thyromegaly. CARDIOVASCULAR: S1 and S2 present. No murmurs, rubs, or gallops. PULMONARY: Chest is clear to auscultation, no wheezing , no crackles. ABDOMEN: Soft, nontender, nondistended, normoactive bowel sounds. No palpable organomegaly. MUSCULOSKELETAL: No joint swelling or deformity. -EXTREMITIES: No cyanosis, clubbing, or pedal edema. A blister at the tip of the right index finger with history of amputation of the distal phalanx NEUROLOGICAL: Gross neurological examination did not reveal any focal deficits. SKIN: No rashes. no petechiae. - Labs CBC & Chem 7: 04/26/24 07:11 04/26/24 07:11 Labs: Abnormal Lab Results - Last 24 Hours (Table) 04/26/24 04/26/24 04/27/24 Range/Units 16:23 20:50 07:06 POC Glucose (mg/dL) 111 H 111 H 62 L (70-110) mg/dL Microbiology - Last 24 Hours (Table) 04/25/24 20:00 Urine Culture - Preliminary Urine,Voided Gram Neg Bacilli Assessment and Plan Assessment: Acute urinary tract infection/pyelonephritis Sepsis secondary to above Acute kidney injury on CKD Stage III Nausea and poor appetite Generalized weakness and fall A blister on the tip of his already amputated right index finger ( h/o osteomyeitits about 1 yr ago as per pt) Diabetes mellitus Hyperlipidemia Plan: Start ceftriaxone Follow-up urine culture Continue with insulin sliding scale while holding metformin and Amaryl Orthopedic team already consulted Follow-up creatinine this morning if no improvement may consider nephrology consult Labs and medication were reviewed.. Continue same treatment. Continue with symptomatic treatment. Resume home medication. Monitor labs and vitals. DVT and GI prophylaxis. Further recommendations as per clinical course of the patient DVT prophylaxis: Subcutaneous heparin GI Prophylaxis: Pepcid PT/OT: Pending
[2024-04-28 05:52] LABS: Glucose,Whole Blood 138 mg/dL (70-110)
--- NOTE | 2024-04-28 08:47 | P.CONS ---
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 Gomes on 10/18/2023 patient did have healing of the wound he is now presenting to the hospital with weakness and also has developed a blister on the tip of his left index finger that apparently started few days before the patient presented to the hospital patient denies any history of any trauma to the area he did have some dull aching pain mild in intensity without any radiation denies having any drainage or any fever on presentation to the hospital patient did have a low-grade fever of 100.1 F subsequently spiked a fever to 103.2 F yesterday morning patient was nontachycardic hypotensive or hypoxic patient did have a white count of 15.6 BUN/creatinine has been elevated urine has been positive influenza RSV COVID testing negative urine culture currently growing gram-negative patient did have a finger x-ray soft tissue swelling and no obvious erosion or evidence of osteomyelitis to the right index finger chest x-ray low lung volumes with generalized hazy appearance could represent atelectasis versus pulmonary edema patient has been evaluated by orthopedics not recommending any drainage of this blister patient is currently on Rocephin infectious disease was consulted concerning for UTI and finger blister Review of Systems Positive point and negatives has been mentioned in the HPI, complete review of systems was performed and all other systems are negative Past Medical History Past Medical History: Diabetes Mellitus, Hyperlipidemia History of Any Multi-Drug Resistant Organisms: None Reported Past Surgical History: Orthopedic Surgery, Tonsillectomy Additional Past Surgical History / Comment(s): tip of rt middle finger removed from work injury Past Anesthesia/Blood Transfusion Reactions: No Reported Reaction Smoking Status: Never smoker Medications and Allergies Home Medications Medication Instructions Recorded Confirmed Type Lovastatin [Mevacor] 40 mg PO W/SUPPER 05/01/18 04/25/24 History Ferrous Sulfate [Iron (65 MG 325 mg PO DAILY 06/17/22 04/25/24 History Elemental)] Furosemide [Lasix] 40 mg PO BID@0900,1600 08/05/22 04/25/24 History hydrALAZINE HCL [Apresoline] 100 mg PO TID 08/05/22 04/25/24 History Isosorbide Mononitrate ER [Imdur] 30 mg PO DAILY 12/10/22 04/25/24 History allopurinoL [Zyloprim] 100 mg PO BID 12/10/22 04/25/24 History Famotidine [Pepcid] 20 mg PO HS 05/06/23 04/25/24 History Glimepiride [Amaryl] 4 mg PO BID 05/06/23 04/25/24 History carvediloL [Coreg] 25 mg PO BID-W/MEALS 05/06/23 04/25/24 History metFORMIN HCL ER [Glucophage XR] 500 mg PO DAILY 05/06/23 04/25/24 History Aspirin EC [Ecotrin Low Dose] 81 mg PO DAILY 04/25/24 04/25/24 History Cholecalciferol [Vitamin D3 (25 25 mcg PO DAILY 04/25/24 04/25/24 History Mcg = 1000 Iu)] Dapagliflozin Propanediol [Farxiga] 5 mg PO DAILY 04/25/24 04/25/24 History Dulaglutide [Trulicity] 3 mg SQ TU 04/25/24 04/25/24 History Magnesium Oxide [Mag-Ox] 400 mg PO DAILY 04/25/24 04/25/24 History amLODIPine [Norvasc] 5 mg PO DAILY 04/25/24 04/25/24 History lisinopriL [Zestril] 2.5 mg PO DAILY 04/25/24 04/25/24 History Allergies Allergy/AdvReac Type Severity Reaction Status Date / Time No Known Allergies Allergy Verified 04/25/24 18:47 Physical Exam Vitals: Vital Signs Temp Pulse Resp BP Pulse Ox 04/27/24 07:23 98.1 F 75 17 152/78 96 04/27/24 02:26 97.7 F 65 17 135/60 97 04/26/24 19:34 97.9 F 69 19 138/62 95 04/26/24 14:25 97.5 F L 69 18 117/63 94 L Intake and Output 04/26/24 04/27/24 04/27/24 22:59 06:59 14:59 Output Total 450 Balance -450 Output: Urine 450 Other: Voiding Method Diaper # Voids 1 GENERAL DESCRIPTION: Elderly male lying in bed, no distress. No tachypnea or accessory muscle of respiration use. HEENT: Shows Pallor , no scleral icterus. Oral mucous membrane is dry. No ph aryngeal erythema or thrush NECK: Trachea central, no thyromegaly. LUNGS: Unlabored breathing. Clear to auscultation anteriorly. No wheeze or crackle. HEART: S1, S2, regular rate and rhythm. No loud murmur ABDOMEN: Soft, no tenderness , guarding or rigidity, no organomegaly EXTREMITIES: Right index finger tip did have a blister with some cloudy fluid no significant surrounding redness SKIN: No rash, no masses palpable. NEUROLOGICAL: The patient is awake, alert, oriented x3, mood and affect normal. Results CBC & Chem 7: 04/26/24 07:11 04/28/24 07:23 Labs: Abnormal Lab Results - Last 24 Hours (Table) 04/26/24 04/26/24 04/27/24 Range/Units 16:23 20:50 07:06 POC Glucose (mg/dL) 111 H 111 H 62 L (70-110) mg/dL Microbiology - Last 24 Hours (Table) 04/25/24 20:00 Urine Culture - Preliminary Urine,Voided Gram Neg Bacilli Assessment and Plan (1) Finger infection Current Visit: Yes Status: Acute Code(s): L08.9 - LOCAL INFECTION OF THE SKIN AND SUBCUTANEOUS TISSUE, UNSP SNOMED Code(s): 118016030 (2) UTI (urinary tract infection) Current Visit: Yes Status: Acute Code(s): N39.0 - URINARY TRACT INFECTION, SITE NOT SPECIFIED SNOMED Code(s): 82145557 Plan: 1patient presented to hospital with weakness and this patient also noted to have a fever source likely UTI however the patient also have a blister to the tip of his right index finger with a previous partial amputation fluid is slightly cloudy finger infection not entirely excluded 2-patient benefit from debridement and deep culture and we will follow-up on the urine culture to finalize 3-Rocephin 2 g IV to continue while waiting for the culture to finalize We will follow on clinical condition and cultures to further adjust medication if needed Thank you for this consultation we will follow the patient along with you Dictation was produced using dragon dictation software. please excuse any grammatical, word or spelling errors. Time with Patient: Greater than 30
[2024-04-28 09:38] LABS: African American GFR (CKD) 37 (>60 ml/min/1.73 sqM); Anion Gap 10 mmol/L; Blood Urea Nitrogen 62 mg/dL (9-20); Carbon Dioxide 18 mmol/L (22-30); Chloride 109 mmol/L (98-107); Glucose 140 mg/dL (74-99); Non-African American GFR(CKD) 32 (>60 ml/min/1.73 sqM); Sodium 137 mmol/L (137-145)
--- NOTE | 2024-04-28 09:45 | P.PN ---
Subjective Progress Note Date: 04/28/24 Principal diagnosis: Left index finger blistering Gopi is a 64-year-old male who is well known to our office for a left index finger infection in September of this year. He underwent a partial amputation of fingertip on 10/18/[address] Gomes. He had healed well after that surgery with no further issues. He now presents to the hospital with weakness and was admitted with acute kidney injury. The patient was found to have a blister on the tip of his left index finger and orthopedic hand surgery was consulted. he states he does not remember any trauma to the finger lately but does have numbness in all his fingertips. He denies fever and chills. 04/28/2024: No changes to the finger. No signs of infection at this time. No new complaints. Objective - Vital Signs Vital signs: Vital Signs Temp 97.3 F L 04/28/24 08:00 Pulse 65 04/28/24 08:00 Resp 18 04/28/24 08:00 BP 128/69 04/28/24 08:00 Pulse Ox 97 04/28/24 08:00 FiO2 Intake & Output 04/27/24 04/28/24 04/28/24 18:59 06:59 18:59 Other: Voiding Method Diaper # Voids 3 4 - Exam The patient is a 64-year-old male in no acute distress. He is alert and oriented 3. Exam of the left index finger reveals a fluid-filled blister. There is no proximal red streaking or pain in the finger. No pain along the flexor tendons. No signs or symptoms of infection noted at this time. There is decreased sensation to the fingertips his left hand. Circulatory status is int act. - Labs CBC & Chem 7: 04/26/24 07:11 04/26/24 07:11 Labs: Abnormal Lab Results - Last 24 Hours (Table) 04/28/24 Range/Units 05:51 POC Glucose (mg/dL) 138 H (70-110) mg/dL Microbiology - Last 24 Hours (Table) 04/25/24 20:00 Urine Culture - Final Urine,Voided Enterobacter cloacae Assessment and Plan (1) Blister of finger without infection Current Visit: Yes Status: Acute Code(s): S60.429A - BLISTER (NONTHERMAL) OF UNSPECIFIED FINGER, INIT ENCNTR SNOMED Code(s): 13218259 (2) CON (acute kidney injury) Current Visit: Yes Status: Acute Code(s): N17.9 - ACUTE KIDNEY FAILURE, UNSPECIFIED SNOMED Code(s): 30790964 (3) UTI (urinary tract infection) Current Visit: Yes Status: Acute Code(s): N39.0 - URINARY TRACT INFECTION, SITE NOT SPECIFIED SNOMED Code(s): 27652898 (4) Weakness Current Visit: Yes Status: Acute Code(s): R53.1 - WEAKNESS SNOMED Code(s): 44631275 Plan: The clinical and x-ray findings were discussed with the patient. The case was discussed at length with Dr. Gomes. The patient does not have obvious signs of infection in the left index finger at this time. We will give the finger more time to see what the blister will do. Dressing as needed to the finger. He will follow up in our office upon discharge if need.
[2024-04-28 09:51] LABS: Potassium 4.7 mmol/L (3.5-5.1)
--- NOTE | 2024-04-28 15:39 | P.PN ---
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 Gomes on 10/18/2023 now presented to hospital with weakness noticed to have a blister to the right index finger and also positive UA. On today's evaluation that is 04/28/2024,the patient remains to be afebrile, patient is on room air not requiring supplemental oxygen and denies any shortness of breath no chest pain or cough.Patient denies having any nausea or vomiting, no abdominal pain and no diarrhea has been reported, denies pain to the right index finger blister daily. Patient did have a creatinine 2.12 no CBC was done today urine is growing Enterobacter sensitive to ceftriaxone Objective - Vital Signs Vital signs: Vital Signs Temp 97.5 F L 04/28/24 14:00 Pulse 62 04/28/24 14:00 Resp 18 04/28/24 14:00 BP 134/74 04/28/24 14:00 Pulse Ox 94 L 04/28/24 14:00 FiO2 Intake & Output 04/27/24 04/28/24 04/28/24 18:59 06:59 18:59 Other: Voiding Method Diaper # Voids 3 4 - Exam GENERAL DESCRIPTION: An elderly male lying in bed in no distress RESPIRATORY SYSTEM: Unlabored breathing , decreased breath sounds at bases HEART: S1 S2 regular rate and rhythm , ABDOMEN: Soft , no tenderness EXTREMITIES: Right index finger tip did have a blister with mostly cloudy fluid - Labs CBC & Chem 7: 04/26/24 07:11 04/28/24 07:23 Labs: Abnormal Lab Results - Last 24 Hours (Table) 04/28/24 04/28/24 Range/Units 05:51 07:23 Chloride 109 H (98-107) mmol/L Carbon Dioxide 18 L (22-30) mmol/L BUN 62 H (9-20) mg/dL Creatinine 2.12 H (0.66-1.25) mg/dL Glucose 140 H (74-99) mg/dL POC Glucose (mg/dL) 138 H (70-110) mg/dL Microbiology - Last 24 Hours (Table) 04/25/24 20:00 Urine Culture - Final Urine,Voided Enterobacter cloacae Assessment and Plan (1) Finger infection Current Visit: Yes Status: Acute Code(s): L08.9 - LOCAL INFECTION OF THE SKIN AND SUBCUTANEOUS TISSUE, UNSP SNOMED Code(s): 662492357 (2) UTI (urinary tract infection) Current Visit: Yes Status: Acute Code(s): N39.0 - URINARY TRACT INFECTION, SITE NOT SPECIFIED SNOMED Code(s): 67684818 Plan: 1patient presented to hospital with weakness and this patient also noted to have a fever source likely UTI however the patient also have a blister to the tip of his right index finger with a previous partial amputation fluid is slightly cloudy finger infection not entirely excluded and the patient will benefit from debridement and deep culture Ortho is following the patient. 2urine has been finalized with Enterobacter that is sensitive to ceftriaxone to continue to check an ultrasound kidney bladder because of his elevated kidney function to make sure evidence of a obstructive uropathy Dictation was produced using [employer] dictation software. please excuse any grammatical, word or spelling errors. Time with Patient: Less than 30
--- NOTE | 2024-04-28 17:22 | US ---
EXAMINATION TYPE: US kidneys/renal and bladder DATE OF EXAM: 04/28/2024 COMPARISON: NONE CLINICAL INDICATION: Male, 64 years old with history of uti and bacteremia; UTI. Bacteremia EXAM MEASUREMENTS: Right Kidney: 12.0 x 5.6 x 5.1 cm Left Kidney: 10.8 x 5.5 x 4.9 cm Right Kidney: isoechoic/solid area = 3.2 x 3.1 x 2.9cm (vs 3.0 x 2.7 x 2.3cm, previously). Central pa rapelvic cyst lower pole = 1.1 x 0.6 x 1.0cm as seen on prior exams. No hydronephrosis. Left Kidney: no evidence of hydronephrosis Bladder: wnl Bilateral Jets seen: no IMPRESSION: 1. No hydronephrosis. 2. Again, gradually enlarging solid right renal mass measuring 3.2 cm vs 3.0 cm, previously. Appropr iate followup recommended as RCC remains to be excluded.
--- NOTE | 2024-04-28 17:54 | P.PN ---
Subjective Patient is seen for follow-up for acute kidney injury. Status post IV fluids on initial admission. Creatinine improved to 2.1 today. No significant complaints. Objective - Vital Signs Vital signs: Vital Signs Temp 97.5 F L 04/28/24 14:00 Pulse 62 04/28/24 14:00 Resp 18 04/28/24 14:00 BP 134/74 04/28/24 14:00 Pulse Ox 94 L 04/28/24 14:00 FiO2 Intake & Output 04/27/24 04/28/24 04/28/24 18:59 06:59 18:59 Other: Voiding Method Diaper # Voids 3 4 - Exam Patient is awake, comfortable, no acute distress. Examination of the heart S1 and S2 Examination of the lungs bilateral breath sounds are heard Abdomen is soft nontender Examination of lower extremities showed no significant edema - Labs CBC & Chem 7: 04/26/24 07:11 04/28/24 07:23 Labs: Abnormal Lab Results - Last 24 Hours (Table) 04/28/24 04/28/24 Range/Units 05:51 07:23 Chloride 109 H (98-107) mmol/L Carbon Dioxide 18 L (22-30) mmol/L BUN 62 H (9-20) mg/dL Creatinine 2.12 H (0.66-1.25) mg/dL Glucose 140 H (74-99) mg/dL POC Glucose (mg/dL) 138 H (70-110) mg/dL Microbiology - Last 24 Hours (Table) 04/25/24 20:00 Urine Culture - Final Urine,Voided Enterobacter cloacae Assessment and Plan Assessment: 1. Acute kidney injury, non oliguric ATN secondary to hypotension, status post IV fluids, diuretics on hold. UA suggestive of UTI, ultrasound on 06/07/23 showed no obstructive uropathy - creatinine decreased from 3.37 on admission to 2.1 . 2. Urinary tract infection, urine culture revealed gram negative bacilli, urinalysis showed large leukocyte esterase, and >182 WBC, patient is maintained on Farxega, this may need to be discontinued if he continues to have repeated UTI -maintained on on Rocephin 2 gm. 3. Chronic kidney disease, stage 3B, secondary to diabetic kidney disease with baseline creatinine around 2mg/dl. 4. Type 2 diabetes maintained on metformin, glimepiride, farxega, trulicity 5. Hypertension with CKD stage 3B, maintained on coreg, norvasc, hydralazine and lisinopril. Lisinopril is on hold. 6. Metabolic acidosis secondary to acute kidney injury Plan: Continue with IV fluids. Possibly discontinue in a.m. Add oral sodium bicarb Decrease Coreg if blood pressure remains on the lower side. Repeat labs in a.m.
--- NOTE | 2024-04-28 18:04 | P.PN ---
Subjective Progress Note Date: 04/28/24 64 years old male with past medical history of diabetes mellitus and hyperlipidemia Who presents because of generalized weakness. He states that he fell about 2 days ago when he was getting out of his restroom for urination He denies dizziness syncope. No chest pain or dyspnea. No abdominal pain vomiting and diarrhea Patient denies urgency or dysuria. He denies smoking alcohol or illicit drugs He states yesterday he noticed that there is a blister on the tip of his right index finger. He states that he has history of amputation of the distal phalanx about 1 year ago because of the infection get to the bone He denies smoking alcohol or illicit drugs On admission he was afebrile but this morning he had a fever of 103.2. He is slightly tachypneic and tachycardic Creatinine is above baseline of 2.0-2.2 currently 3.3 on admission Leukocytosis 15,012.7 Hemoglobin 11.0 Sodium 131 proBNP is 2250 Urine analysis is suspicious for infection EKG showing sinus rhythm at [address] changes Chest x-ray showing low volume with generalized hazy appearance could be atelectasis CHF versus pneumonia X-ray of the finger showed amputation of the second digit finger with soft tissue swelling with no obvious osteomyelitis and no fracture 04/28/2024 ---the patient remains to be afebrile, patient is on room air not requiring supplemental oxygen and denies any shortness of breath no chest pain or cough.Patient denies having any nausea or vomiting, no abdominal pain and no diarrhea has been reported, denies pain to the right index finger blister daily. Patient did have a creatinine 2.12 no CBC was done today urine is growing Enterobacter sensitive to ceftriaxone patient presented to hospital with weakness and this patient also noted to have a fever source likely UTI however the patient also have a blister to the tip of his right index finger with a previous partial amputation fluid is slightly cloudy finger infection not entirely excluded and the patient will benefit from debridement and deep culture Ortho is following the patient. urine has been finalized with Enterobacter that is sensitive to ceftriaxone to continue to check an ultrasound kidney bladder because of his elevated kidney function to make sure evidence of a obstructive uropathy Objective - Vital Signs Vital signs: Vital Signs Temp 97.5 F L 04/28/24 14:00 Pulse 62 04/28/24 14:00 Resp 18 04/28/24 14:00 BP 134/74 04/28/24 14:00 Pulse Ox 94 L 04/28/24 14:00 FiO2 Intake & Output 04/27/24 04/28/24 04/28/24 18:59 06:59 18:59 Other: Voiding Method Diaper # Voids 3 4 3 - Exam GENERAL: The patient is alert and oriented x3, not in any acute distress. Well developed, well nourished. HEENT: Pupils are round and equally reacting to light. EOMI. No scleral icterus. No conjunctival pallor. Normocephalic, atraumatic. No pharyngeal erythema. No thyromegaly. CARDIOVASCULAR: S1 and S2 present. No murmurs, rubs, or gallops. PULMONARY: Chest is clear to auscultation, no wheezing , no crackles. ABDOMEN: Soft, nontender, nondistended, normoactive bowel sounds. No palpable organomegaly. MUSCULOSKELETAL: No joint swelling or deformity. -EXTREMITIES: No cyanosis, clubbing, or pedal edema. A blister at the tip of the right index finger with history of amputation of the distal phalanx NEUROLOGICAL: Gross neurological examination did not reveal any focal deficits. SKIN: No rashes. no petechiae. - Labs CBC & Chem 7: 04/26/24 07:11 04/28/24 07:23 Labs: Abnormal Lab Results - Last 24 Hours (Table) 04/28/24 04/28/24 Range/Units 05:51 07:23 Chloride 109 H (98-107) mmol/L Carbon Dioxide 18 L (22-30) mmol/L BUN 62 H (9-20) mg/dL Creatinine 2.12 H (0.66-1.25) mg/dL Glucose 140 H (74-99) mg/dL POC Glucose (mg/dL) 138 H (70-110) mg/dL Microbiology - Last 24 Hours (Table) 04/25/24 20:00 Urine Culture - Final Urine,Voided Enterobacter cloacae Assessment and Plan Assessment: Acute urinary tract infection/pyelonephritis Sepsis secondary to above Acute kidney injury on CKD Stage III Nausea and poor appetite Generalized weakness and fall A blister on the tip of his already amputated right index finger ( h/o osteomyeitits about 1 yr ago as per pt) Diabetes mellitus Hyperlipidemia Plan: Start ceftriaxone Follow-up urine culture Continue with insulin sliding scale while holding metformin and Amaryl Orthopedic team already consulted Follow-up creatinine this morning if no improvement may consider nephrology consult Labs and medication were reviewed.. Continue same treatment. Continue with symptomatic treatment. Resume home medication. Monitor labs and vitals. DVT and GI prophylaxis. Further recommendations as per clinical course of the patient DVT prophylaxis: Subcutaneous heparin GI Prophylaxis: Pepcid PT/OT: Pending
[2024-04-28] MEDS: SODIUM BICARBONATE TAB 650 MG TAB PO SCH (21:26)
[2024-04-28 21:54] LABS: Glucose,Whole Blood 244 mg/dL (70-110)
[2024-04-29 06:29] LABS: Glucose,Whole Blood 137 mg/dL (70-110)
[2024-04-29 09:37] LABS: Basophils # (A) 0.08 X 10*3/uL (0.00-0.10); Basophils % (A) 0.8 %; Eosinophils # (A) 0.39 X 10*3/uL (0.04-0.35); HCT 35.8 % (39.6-50.0); HGB 11.5 g/dL (13.0-17.0); Lymphocytes # (A) 1.56 X 10*3/uL (0.90-5.00); Lymphocytes % (A) 15.9 %; MCH 27.1 pg (27.0-32.0); MCHC 32.1 g/dL (32.0-37.0); MCV 84.2 FL (80.0-97.0); Monocytes # (A) 0.78 X 10*3/uL (0.20-1.00); Monocytes % (A) 7.9 %; NRBC Per 100 WBC 0 X 10*3/uL (0.00-0.01); Neutrophils # (A) 6.83 X 10*3/uL (1.80-7.70); Neutrophils % (A) 69.6 %; Platelet Count 364 X 10*3/uL (140-440); RBC 4.25 X 10*6/uL (4.40-5.60); RDW 16.5 % (11.5-14.5); WBC 9.82 X 10*3/uL (4.50-10.00)
--- NOTE | 2024-04-29 12:57 | P.PN ---
Subjective Patient is seen for follow-up for acute kidney injury. Status post IV fluids on initial admission. Creatinine improved to 2.1 yesterday. No significant complaints. Objective - Vital Signs Vital signs: Vital Signs Temp 97.3 F L 04/29/24 07:15 Pulse 66 04/29/24 07:50 Resp 18 04/29/24 07:50 BP 153/79 04/29/24 07:15 Pulse Ox 98 04/29/24 07:15 FiO2 Intake & Output 04/28/24 04/29/24 04/29/24 18:59 06:59 18:59 Other: Voiding Method Diaper # Voids 3 2 - Exam Patient is awake, comfortable, no acute distress. OCCUPATIONAL HYGIENIST exam grossly intact Examination of lower extremities showed no significant edema - Labs CBC & Chem 7: 04/29/24 06:09 04/28/24 07:23 Labs: Abnormal Lab Results - Last 24 Hours (Table) 04/28/24 04/29/24 04/29/24 Range/Units 21:25 06:09 06:20 RBC 4.25 L (4.40-5.60) X 10*6/uL Hgb 11.5 L (13.0-17.0) g/dL Hct 35.8 L (39.6-50.0) % RDW 16.5 H (11.5-14.5) % Immature Gran # 0.18 H (0.00-0.04) X 10*3/uL Eosinophils # 0.39 H (0.04-0.35) X 10*3/uL POC Glucose (mg/dL) 244 H 137 H (70-110) mg/dL Assessment and Plan Assessment: 1. Acute kidney injury, non oliguric ATN secondary to hypotension, status post IV fluids, diuretics on hold. UA suggestive of UTI, ultrasound on 06/07/23 showed no obstructive uropathy - creatinine decreased from 3.37 on admission to 2.1 . 2. Urinary tract infection, urine culture revealed gram negative bacilli, urinalysis showed large leukocyte esterase, and >182 WBC, patient is maintained on Farxega, this may need to be discontinued if he continues to have repeated UTI -maintained on on Rocephin 2 gm. 3. Chronic kidney disease, stage 3B, secondary to diabetic kidney disease with baseline creatinine around 2mg/dl. 4. Type 2 diabetes maintained on metformin, glimepiride, farxega, trulicity 5. Hypertension with CKD stage 3B, maintained on coreg, norvasc, hydralazine and lisinopril. Lisinopril is on hold. 6. Metabolic acidosis secondary to acute kidney injury 7. Blister on stump off right index finger amputation Plan: check labs continue oral sodium bicarb Repeat labs in a.m.
--- NOTE | 2024-04-29 15:52 | P.PN ---
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 Gomes on 10/18/2023 now presented to hospital with weakness noticed to have a blister to the right index finger and also positive UA. On today's evaluation that is 04/29/2024, the patient continues to be afebrile, the patient is on room air and breathing comfortably, the Pt denies having any chest pain or cough, the patient denies having any abdominal pain no vomiting or any diarrhea patient denies pain to the index fingertip and no drainage. Patient white count is 9.82 creatinine is 2.12 abdominal ultrasound with no hydronephrosis however there is a right renal mass Objective - Vital Signs Vital signs: Vital Signs Temp 97.3 F L 04/29/24 14:45 Pulse 57 L 04/29/24 14:45 Resp 18 04/29/24 14:45 BP 129/74 04/29/24 14:45 Pulse Ox 99 04/29/24 14:45 FiO2 Intake & Output 04/28/24 04/29/24 04/29/24 18:59 06:59 18:59 Other: Voiding Method Diaper # Voids 3 2 - Exam GENERAL DESCRIPTION: An elderly male lying in bed in no distress RESPIRATORY SYSTEM: Unlabored breathing , decreased breath sounds at bases HEART: S1 S2 regular rate and rhythm , ABDOMEN: Soft , no tenderness EXTREMITIES: Right index finger tip did have a blister with mostly cloudy fluid - Labs CBC & Chem 7: 04/29/24 06:09 04/28/24 07:23 Labs: Abnormal Lab Results - Last 24 Hours (Table) 04/28/24 04/29/24 04/29/24 Range/Units 21:25 06:09 06:20 RBC 4.25 L (4.40-5.60) X 10*6/uL Hgb 11.5 L (13.0-17.0) g/dL Hct 35.8 L (39.6-50.0) % RDW 16.5 H (11.5-14.5) % Immature Gran # 0.18 H (0.00-0.04) X 10*3/uL Eosinophils # 0.39 H (0.04-0.35) X 10*3/uL POC Glucose (mg/dL) 244 H 137 H (70-110) mg/dL Assessment and Plan (1) Finger infection Current Visit: Yes Status: Acute Code(s): L08.9 - LOCAL INFECTION OF THE SKIN AND SUBCUTANEOUS TISSUE, UNSP SNOMED Code(s): 659365472 (2) UTI (urinary tract infection) Current Visit: Yes Status: Acute Code(s): N39.0 - URINARY TRACT INFECTION, SITE NOT SPECIFIED SNOMED Code(s): 21972482 Plan: 1patient presented to hospital with weakness and this patient also noted to have a fever source likely UTI however the patient also have a blister to the tip of his right index finger with a previous partial amputation fluid is slightly cloudy finger infection not entirely excluded and the patient will benefit from debridement and deep culture Ortho is following the patient. 2urine has been finalized with Enterobacter that is sensitive to ceftriaxone to continue to ultrasound has been suggestive of a right lateral mass will benefit from urology evaluation or a CT and monitor clinical course closely Dictation was produced using [employer] dictation software. please excuse any grammatical, word or spelling errors. Time with Patient: Less than 30
[2024-04-29 16:25] LABS: African American GFR (CKD) 44 (>60 ml/min/1.73 sqM); Anion Gap 7 mmol/L; Blood Urea Nitrogen 50 mg/dL (9-20); Calcium 8.9 mg/dL (8.4-10.2); Carbon Dioxide 21 mmol/L (22-30); Chloride 111 mmol/L (98-107); Glucose 141 mg/dL (74-99); Non-African American GFR(CKD) 38 (>60 ml/min/1.73 sqM); Potassium 4.1 mmol/L (3.5-5.1); Sodium 139 mmol/L (137-145)
--- NOTE | 2024-04-29 17:16 | P.PN ---
Subjective Progress Note Date: 04/29/24 64 years old male with past medical history of diabetes mellitus and hyperlipidemia Who presents because of generalized weakness. He states that he fell about 2 days ago when he was getting out of his restroom for urination He denies dizziness syncope. No chest pain or dyspnea. No abdominal pain vomiting and diarrhea Patient denies urgency or dysuria. He denies smoking alcohol or illicit drugs He states yesterday he noticed that there is a blister on the tip of his right index finger. He states that he has history of amputation of the distal phalanx about 1 year ago because of the infection get to the bone He denies smoking alcohol or illicit drugs On admission he was afebrile but this morning he had a fever of 103.2. He is slightly tachypneic and tachycardic Creatinine is above baseline of 2.0-2.2 currently 3.3 on admission Leukocytosis 15,012.7 Hemoglobin 11.0 Sodium 131 proBNP is 2250 Urine analysis is suspicious for infection EKG showing sinus rhythm at [address] changes Chest x-ray showing low volume with generalized hazy appearance could be atelectasis CHF versus pneumonia X-ray of the finger showed amputation of the second digit finger with soft tissue swelling with no obvious osteomyelitis and no fracture 04/28/2024 ---the patient remains to be afebrile, patient is on room air not requiring supplemental oxygen and denies any shortness of breath no chest pain or cough.Patient denies having any nausea or vomiting, no abdominal pain and no diarrhea has been reported, denies pain to the right index finger blister daily. Patient did have a creatinine 2.12 no CBC was done today urine is growing Enterobacter sensitive to ceftriaxone patient presented to hospital with weakness and this patient also noted to have a fever source likely UTI however the patient also have a blister to the tip of his right index finger with a previous partial amputation fluid is slightly cloudy finger infection not entirely excluded and the patient will benefit from debridement and deep culture Ortho is following the patient. urine has been finalized with Enterobacter that is sensitive to ceftriaxone to continue to check an ultrasound kidney bladder because of his elevated kidney function to make sure evidence of a obstructive uropathy 04/29/2024 --the patient is seen and evaluated in room at bedside; continues to be afebrile, the patient is on room air and breathing comfortably, the Pt denies having any chest pain or cough, the patient denies having any abdominal pain no vomiting or any diarrhea patient denies pain to the index fingertip and no drainage. Patient white count is 9.82 creatinine is 2.12 abdominal ultrasound with no hydronephrosis however there is a right renal mass patient presented to hospital with weakness and this patient also noted to have a fever source likely UTI however the patient also have a blister to the tip of his right index finger with a previous partial amputation fluid is slightly cloudy finger infection not entirely excluded and the patient will benefit from debridement and deep culture Ortho is following the patient. urine has been finalized with Enterobacter that is sensitive to ceftriaxone to continue to ultrasound has been suggestive of a right renal mass; will consult urology Objective - Vital Signs Vital signs: Vital Signs Temp 97.3 F L 04/29/24 07:15 Pulse 66 04/29/24 07:50 Resp 18 04/29/24 07:50 BP 153/79 04/29/24 07:15 Pulse Ox 98 04/29/24 07:15 FiO2 Intake & Output 04/28/24 04/29/24 04/29/24 18:59 06:59 18:59 Other: Voiding Method Diaper # Voids 3 2 - Exam GENERAL: The patient is alert and oriented x3, not in any acute distress. Well developed, well nourished. HEENT: Pupils are round and equally reacting to light. EOMI. No scleral icterus. No conjunctival pallor. Normocephalic, atraumatic. No pharyngeal erythema. No thyromegaly. CARDIOVASCULAR: S1 and S2 present. No murmurs, rubs, or gallops. PULMONARY: Chest is clear to auscultation, no wheezing , no crackles. ABDOMEN: Soft, nontender, nondistended, normoactive bowel sounds. No palpable organomegaly. MUSCULOSKELETAL: No joint swelling or deformity. -EXTREMITIES: No cyanosis, clubbing, or pedal edema. A blister at the tip of the right index finger with history of amputation of the distal phalanx NEUROLOGICAL: Gross neurological examination did not reveal any focal deficits. SKIN: No rashes. no petechiae. - Labs CBC & Chem 7: 04/29/24 06:09 04/29/24 06:09 Labs: Abnormal Lab Results - Last 24 Hours (Table) 04/28/24 04/29/24 04/29/24 Range/Units 21:25 06:09 06:20 RBC 4.25 L (4.40-5.60) X 10*6/uL Hgb 11.5 L (13.0-17.0) g/dL Hct 35.8 L (39.6-50.0) % RDW 16.5 H (11.5-14.5) % Immature Gran # 0.18 H (0.00-0.04) X 10*3/uL Eosinophils # 0.39 H (0.04-0.35) X 10*3/uL POC Glucose (mg/dL) 244 H 137 H (70-110) mg/dL Assessment and Plan Assessment: Acute urinary tract infection/pyelonephritis Sepsis secondary to above Acute kidney injury on CKD Stage III Nausea and poor appetite Generalized weakness and fall A blister on the tip of his already amputated right index finger ( h/o osteomyeitits about 1 yr ago as per pt) Diabetes mellitus Hyperlipidemia Plan: Start ceftriaxone Follow-up urine culture Continue with insulin sliding scale while holding metformin and Amaryl Orthopedic team already consulted Follow-up creatinine this morning if no improvement may consider nephrology consult Labs and medication were reviewed.. Continue same treatment. Continue with symptomatic treatment. Resume home medication. Monitor labs and vitals. DVT and GI prophylaxis. Further recommendations as per clinical course of the patient DVT prophylaxis: Subcutaneous heparin GI Prophylaxis: Pepcid PT/OT: Pending
[2024-04-29 20:59] LABS: Glucose,Whole Blood 221 mg/dL (70-110)
[2024-04-30 06:03] LABS: Glucose,Whole Blood 171 mg/dL (70-110)
[2024-04-30 07:25] VITALS: BP 156/76; PULSE 71; RESP 18; TEMP 97.5
[2024-04-30 11:33] LABS: Glucose,Whole Blood 252 mg/dL (70-110)
[2024-05-01] MEDS ORDERED: NON FORMULARY DRUG (Dulaglutide [Trulicity] 3 MG/0.5 ML Each) SQ SCH (09:00)
[2024-05-23 09:54] LABS: Glucose 150 mg/dL (74-99)
[2024-05-23 09:55] LABS: Anion Gap 8 mmol/L; Blood Urea Nitrogen 42 mg/dL (9-20); Calcium 9.2 mg/dL (8.4-10.2); Carbon Dioxide 22 mmol/L (22-30); Chloride 110 mmol/L (98-107); Potassium 4.5 mmol/L (3.5-5.1); Sodium 140 mmol/L (137-145)
== END 2024-04-30 15:38 | disposition home or self-care (01) | DRG 871 ==
LOC: EC 17:10 → 4SSUR 19:40 → OBSVTOIN 19:41 → 4SSUR 21:10
PROVIDERS: ADMIT Hospitalist; ATTEND Hospitalist
DX: A41.59 Other Gram-negative sepsis (principal); N17.0 Acute kidney failure with tubular necrosis; N12 Tubulo-interstitial nephritis, not specified as acute or chronic; E87.20 Acidosis, unspecified; T87.41 Infection of amputation stump, right upper extremity; R62.7 Adult failure to thrive; R65.20 Severe sepsis without septic shock; E11.22 Type 2 diabetes mellitus with diabetic chronic kidney disease; E78.5 Hyperlipidemia, unspecified; I12.9 Hypertensive chronic kidney disease with stage 1 through stage 4 chronic kidney disease, or unspecified chronic kidney disease; L08.9 Local infection of the skin and subcutaneous tissue, unspecified; N13.9 Obstructive and reflux uropathy, unspecified; N18.32 Chronic kidney disease, stage 3b; N28.89 Other specified disorders of kidney and ureter; S60.420A Blister (nonthermal) of right index finger, initial encounter; S60.421A Blister (nonthermal) of left index finger, initial encounter; Z79.4 Long term (current) use of insulin; Z79.82 Long term (current) use of aspirin; Z79.84 Long term (current) use of oral hypoglycemic drugs; Z79.899 Other long term (current) drug therapy; Z79.85 Long-term (current) use of injectable non-insulin antidiabetic drugs; Z11.52 Encounter for screening for COVID-19; Z68.28 Body mass index [BMI] 28.0-28.9, adult; Z91.81 History of falling
CPT/HCPCS: 36415; 71046; 76770; 80048; 80053; 81001; 82550; 83605; 83735; 83880; 84100; 84484; 85025; 85610; 85730; 87077; 87086; 87186; 87636; 93005; 94760; 96361; 96365; 96375; 99285

== ENCOUNTER → 2024-07-14 | Outpatient (CLI) | payer MEDICARE ==
[2024-07-14 13:17] LABS: Basophils # (A) 0.11 X 10*3/uL (0.00-0.10); Basophils % (A) 1.1 %; Eosinophils # (A) 0.53 X 10*3/uL (0.04-0.35); Eosinophils % (A) 5.1 %; HCT 39.1 % (39.6-50.0); HGB 13.3 g/dL (13.0-17.0); Lymphocytes # (A) 2.15 X 10*3/uL (0.90-5.00); Lymphocytes % (A) 20.9 %; MCH 29.6 pg (27.0-32.0); MCV 86.9 FL (80.0-97.0); Mean Platelet Volume 10.2 FL (9.5-12.2); Monocytes # (A) 1.15 X 10*3/uL (0.20-1.00); Monocytes % (A) 11.2 %; NRBC Per 100 WBC 0 X 10*3/uL (0.00-0.01); Neutrophils # (A) 6.27 X 10*3/uL (1.80-7.70); Neutrophils % (A) 60.7 %; Platelet Count 292 X 10*3/uL (140-440); RDW 15.2 % (11.5-14.5); WBC 10.31 X 10*3/uL (4.50-10.00)
[2024-07-14 13:58] LABS: Urine Creatinine 54.1 mg/dL (39.0-259.0)
[2024-07-14 15:11] LABS: Appearance,Urine Turbid (Clear); Bilirubin,Urine Negative (Negative); Blood,Urine Small (Negative); Color,Urine Yellow (Yellow); Ketones,Urine Negative (Negative); Nitrite,Urine Negative (Negative); Urobilinogen,Urine 0.2 E.U./DL
[2024-07-14 15:54] LABS: % Iron Saturation 13.27 (15.00-50.00); ALT 10 U/L (10-49); AST 13 U/L (14-35); Albumin 4.2 g/dL (3.8-4.9); Albumin/Globulin Ratio 1.31 Ratio (1.60-3.17); Alkaline Phosphatase 107 U/L (41-126); BUN/Creat Ratio 13.04 Ratio (12.00-20.00); Blood Urea Nitrogen 32.6 mg/dL (9.0-27.0); Calcium 9.6 mg/dL (8.7-10.3); Carbon Dioxide 27.8 mmol/L (21.6-31.8); Chloride 95 mmol/L (96-109); Globulin 3.2 g/dL (1.6-3.3); Glucose 300 mg/dL (70-110); Iron 39 UG/DL (65-175); Magnesium 2.3 mg/dL (1.5-2.4); Phosphorus 4.5 mg/dL (2.4-5.1); Potassium 4.7 mmol/L (3.5-5.5); Sodium 137 mmol/L (135-145); Total Bilirubin 0.2 mg/dL (0.3-1.2); Total Iron Binding Capacity 294 UG/DL (228-460); Total Protein 7.4 g/dL (6.2-8.2); Uric Acid 6.6 mg/dL (3.7-8.7)
[2024-07-14 17:24] LABS: Bacteria,Urine 1+ (None Seen); Yeast (UA) Present (None Seen)
== END | disposition home or self-care (01) ==
LOC: LABWHC1 07:54
PROVIDERS: ATTEND Internal Medicine
CPT/HCPCS: 36415; 80053; 81001; 82043; 82306; 82570; 82728; 83540; 83550; 83735; 83970; 84100; 84550; 85025

== ENCOUNTER → 2024-07-24 | Outpatient (CLI) | payer MEDICARE ==
[2024-07-24 15:44] LABS: ALT 18 U/L (10-49); AST 17 U/L (14-35); Albumin/Globulin Ratio 1.38 Ratio (1.60-3.17); Alkaline Phosphatase 107 U/L (41-126); BUN/Creat Ratio 19.37 Ratio (12.00-20.00); Blood Urea Nitrogen 36.8 mg/dL (9.0-27.0); Calcium 9.5 mg/dL (8.7-10.3); Carbon Dioxide 26.7 mmol/L (21.6-31.8); Chloride 99 mmol/L (96-109); Globulin 2.9 g/dL (1.6-3.3); Glucose 390 mg/dL (70-110); Potassium 4.1 mmol/L (3.5-5.5); Sodium 138 mmol/L (135-145); Total Bilirubin 0.3 mg/dL (0.3-1.2); Total Protein 6.9 g/dL (6.2-8.2)
== END | disposition home or self-care (01) ==
LOC: LABWHC1 08:08
PROVIDERS: ATTEND Internal Medicine Nephrology
DX: N18.32 Chronic kidney disease, stage 3b (principal)
CPT/HCPCS: 36415; 80053

== ENCOUNTER → 2024-08-22 | Outpatient (CLI) | payer MEDICARE ==
[2024-08-22 16:05] LABS: HCT 38.5 % (39.6-50.0); HGB 13.1 g/dL (13.0-17.0); MCH 29.8 pg (27.0-32.0); MCV 87.7 FL (80.0-97.0); Mean Platelet Volume 10.7 FL (9.5-12.2); NRBC Per 100 WBC 0 X 10*3/uL (0.00-0.01); Platelet Count 299 X 10*3/uL (140-440); RBC 4.39 X 10*6/uL (4.40-5.60); RDW 13.8 % (11.5-14.5); WBC 12.63 X 10*3/uL (4.50-10.00)
[2024-08-22 16:28] LABS: % Iron Saturation 18.81 (15.00-50.00); BUN/Creat Ratio 19.25 Ratio (12.00-20.00); Blood Urea Nitrogen 38.5 mg/dL (9.0-27.0); Calcium 9.4 mg/dL (8.7-10.3); Carbon Dioxide 23.9 mmol/L (21.6-31.8); Chloride 97 mmol/L (96-109); Glucose 343 mg/dL (70-110); Iron 60 UG/DL (65-175); Magnesium 2.2 mg/dL (1.5-2.4); Potassium 4.2 mmol/L (3.5-5.5); Sodium 136 mmol/L (135-145); Total Iron Binding Capacity 319 UG/DL (228-460); Uric Acid 5.6 mg/dL (3.7-8.7)
[2024-08-22 19:03] LABS: Appearance,Urine Clear (Clear); Bilirubin,Urine Negative (Negative); Blood,Urine Negative (Negative); Color,Urine Yellow (Yellow); Ketones,Urine Negative (Negative); Nitrite,Urine Negative (Negative); Specific Gravity,Urine 1.015 (1.001-1.030); Urobilinogen,Urine 0.2 E.U./DL
[2024-08-22 19:13] LABS: Bacteria,Urine None Seen (None Seen)
[2024-08-23 09:56] LABS: Urine Creatinine 25.8 mg/dL (39.0-259.0)
== END | disposition home or self-care (01) ==
LOC: LABWHC1 12:29
PROVIDERS: ATTEND Nurse Practitioner Family
DX: N18.32 Chronic kidney disease, stage 3b (principal); D63.1 Anemia in chronic kidney disease; N39.0 Urinary tract infection, site not specified; E55.9 Vitamin D deficiency, unspecified; N25.81 Secondary hyperparathyroidism of renal origin; M10.9 Gout, unspecified; R80.9 Proteinuria, unspecified
CPT/HCPCS: 36415; 80048; 81001; 82043; 82306; 82570; 82728; 83540; 83550; 83735; 83970; 84100; 84550; 85027

== ENCOUNTER 2024-09-04 16:36 | Inpatient (IN) | payer MEDICARE ==
--- NOTE | 2024-09-04 16:55 | ED ---
Altered Mental Status HPI - General Chief Complaint: Altered Mental Status Stated Complaint: AMS Time Seen by Provider: 09/04/24 16:42 Source: EMS, RN notes reviewed, old records reviewed Mode of arrival: EMS Limitations: altered mental status - History of Present Illness Initial Comments: This is a 64 male who presents today for evaluation patient is presenting for evaluation in regards to being found on the ground for unknown amount of time. Last seen 2 weeks ago, EMS was called to patient's unresponsive state MD Complaint: altered mental status, confusion, decreased responsiveness, weakness -: week(s) Consistency of Symptoms: getting worse Associated Symptoms: denies other symptoms Treatments Prior to Arrival: oxygen - Related Data Home Medications Medication Instructions Recorded Confirmed Lovastatin [Mevacor] 40 mg PO W/SUPPER 05/01/18 09/04/24 Ferrous Sulfate [Iron (65 MG 325 mg PO DAILY 06/17/22 09/04/24 Elemental)] Furosemide [Lasix] 40 mg PO BID@0900,1600 08/05/22 09/04/24 hydrALAZINE HCL [Apresoline] 100 mg PO TID 08/05/22 09/04/24 Isosorbide Mononitrate ER [Imdur] 30 mg PO DAILY 12/10/22 09/04/24 allopurinoL [Zyloprim] 100 mg PO BID 12/10/22 09/04/24 Famotidine [Pepcid] 20 mg PO HS PRN 05/06/23 09/04/24 Glimepiride [Amaryl] 8 mg PO W/BRKFST 05/06/23 09/04/24 carvediloL [Coreg] 25 mg PO BID-W/MEALS 05/06/23 09/04/24 metFORMIN HCL ER [Glucophage XR] 500 mg PO DAILY 05/06/23 09/04/24 Dulaglutide [Trulicity] 3 mg SQ Q7D 04/25/24 09/04/24 amLODIPine [Norvasc] 5 mg PO DAILY 04/25/24 09/04/24 lisinopriL [Zestril] 2.5 mg PO DAILY 04/25/24 09/04/24 Dapagliflozin Propanediol [Farxiga] 5 mg PO DAILY 09/04/24 09/04/24 Tamsulosin [Flomax] 0.4 mg PO HS 09/04/24 09/04/24 calcitrioL [Rocaltrol] 0.25 mcg PO Q7D 09/04/24 09/04/24 Allergies Allergy/AdvReac Type Severity Reaction Status Date / Time No Known Allergies Allergy Verified 09/04/24 19:37 Review of Systems ROS Statement: Those systems with pertinent positive or pertinent negative responses have been documented in the HPI. ROS Other: All systems not noted in ROS Statement are negative. Past Medical History Past Medical History: Diabetes Mellitus, Hyperlipidemia History of Any Multi-Drug Resistant Organisms: None Reported Past Surgical History: Orthopedic Surgery, Tonsillectomy Additional Past Surgical History / Comment(s): tip of rt middle finger removed from work injury Past Anesthesia/Blood Transfusion Reactions: No Reported Reaction Past Psychological History: No Psychological Hx Reported Smoking Status: Never smoker Past Alcohol Use History: Unable to Obtain Past Drug Use History: Unable to Obtain General Exam Limitations: altered mental status General appearance: alert, anxious, lethargic, obtunded, in distress Head exam: Present: atraumatic, normocephalic, normal inspection Eye exam: Present: normal appearance, PERRL, EOMI. Absent: scleral icterus, conjunctival injection, periorbital swelling ENT exam: Present: normal exam, mucous membranes moist Neck exam: Present: normal inspection. Absent: tenderness, meningismus, lymphadenopathy Respiratory exam: Present: normal lung sounds bilaterally. Absent: respiratory distress, wheezes, rales, rhonchi, stridor Cardiovascular Exam: Present: normal rhythm, tachycardia, normal heart sounds. Absent: systolic murmur, diastolic murmur, rubs, gallop, clicks GI/Abdominal exam: Present: soft, normal bowel sounds. Absent: distended, tenderness, guarding, rebound, rigid Extremities exam: Present: normal inspection, full ROM, normal capillary refill. Absent: tenderness, pedal edema, joint swelling, calf tenderness Back exam: Present: normal inspection Neurological exam: Present: alert, oriented X3, CN II-XII intact Psychiatric exam: Present: normal affect, normal mood Skin exam: Present: warm, dry, intact, normal color. Absent: rash Course Vital Signs 09/04/24 09/04/24 09/04/24 16:39 16:41 17:06 Temperature 97.7 F Pulse Rate 89 88 86 Respiratory Rate Blood Pressure 80/60 82/62 88/68 O2 Sat by Pulse 91 L 91 L 91 L Oximetry 09/04/24 09/04/24 09/04/24 18:44 18:49 20:00 Temperature Pulse Rate 76 70 78 Respiratory 26 H Rate Blood Pressure 119/78 O2 Sat by Pulse 95 Oximetry 09/04/24 20:40 Temperature 97.5 F L Pulse Rate 64 Respiratory 26 H Rate Blood Pressure 120/76 O2 Sat by Pulse 95 Oximetry - Reevaluation(s) Reevaluation #1: 09/04/24 18:12 Medical record is Reviewed Reevaluation #2: 09/04/24 18:13 Patient symptoms unchanged Reevaluation #3: 09/04/24 18:13 Patient remains significantly altered here in the ER Reevaluation #4: Was pt. sent in by a medical professional or institution (AMY Villafana, [employer], urgent care, hospital, or intermediate...) When possible be specific @ -no Did you speak to anyone other than the patient for history (EMS, parent, family, police, friend...)? What history was obtained from this source @ -no Did you review nursing and triage notes (agree or disagree)? Why? @ -agree Are old charts reviewed (outside hosp., previous admission, EMS record, old EKG, old radiological studies, urgent care reports/EKG's, intermediate records)? Report findings @ -yes Differential Diagnosis (chest pain, altered mental status, abdominal pain women, abdominal pain men, vaginal bleeding, weakness, fever, dyspnea, syncope, headache, dizziness, GI bleed, back pain, seizure, CVA, palpatations, mental health, musculoskeletal)? @ -prior EKG interpreted by me (3pts min.). @ -yes X-rays interpreted by me (1pt min.). @ -Yes positive for pneumonia CT interpreted by me (1pt min.). @ -yes negative for acute disease U/S interpreted by me (1pt. min.). @ -no What testing was considered but not performed or refused? (CT, X-rays, U/S, labs)? Why? @ -none What meds were considered but not given or refused? Why? @ -none Did you discuss the management of the patient with other professionals (robyn foremanonaljaymie i.e. [facility]Y Villafana, [employer], lab, RT, psych nurse, administrator social welfare, photo retoucher, teacher, transit police officer, continuous pillowcase cutter)? Give summary @ -no Was smoking cessation discussed for >3mins.? @ -no Was critical care preformed (if so, how long)? @ -yes32 Were there social determinants of health that impacted care today? How? (Homelessness, low income, unemployed, alcoholism, drug addiction, transportation, low edu. Level, literacy, decrease access to med. care, long term, rehab)? @ -none Was there de-escalation of care discussed even if they declined (Discuss DNR or withdrawal of care, Hospice)? DNR status @ -no What co-morbidities impacted this encounter? (DM, HTN, Smoking, COPD, CAD, Cancer, CVA, ARF, Chemo, Hep., AIDS, mental health diagnosis, sleep apnea, morbid obesity)? @ -none Was patient admitted / discharged? Hospital course, mention meds given and route, prescriptions, significant lab abnormalities, going to OR and other pertinent info. @ - 64 male to be admitted for acute rhabdomyolysis versus debility of unknown cause, patient was found down, no history of substance abuse, found to have pneumonia suspect aspiration, patient significant renal failure Admitted Undiagnosed new problem with uncertain prognosis? @ -no Drug Therapy requiring intensive monitoring for toxicity (Heparin, Nitro, Insulin, Cardizem)? @ -no Were any procedures done? @ -no Diagnosis/symptom? @ -Significant renal failure, pneumonia, sepsis Acute, or Chronic, or Acute on Chronic? @ -Acute Uncomplicated (without systemic symptoms) or Complicated (systemic symptoms)? @ -Complicated Side effects of treatment? @ -no Exacerbation, Progression, or Severe Exacerbation? @ -exacerbation Poses a threat to life or bodily function? How? (Chest pain, [place], [place], pneumonia, PE, COPD, DKA, ARF, appy, cholecystitis, CVA, Diverticulitis, Homicidal, Suicidal, threat to staff... and all critical care pts) @ -yes significant renal failure Reevaluation #5: Differential Altered Mental Status: Hypoglycemia, DKA, hypercapnia, ETOH, overdose, CO poisoning, trauma, myxedema coma, HTN encephalopathy, infection, encephalitis, psychosis, intercranial hemorrhage, hepatic encephalopathy, meningitis, CVA, this is not meant to be an all-inclusive list Differential Dyspnea: Coronary syndrome, arrhythmia, tamponade, asthma, COPD, pulmonary embolism, pneumonia, pneumothorax, pulmonary effusion, anaphylaxis, diabetic ketoacidosis, flailed chest, pulmonary contusion, diaphragmatic rupture, anemia, neuromuscular, this is not meant to be an all-inclusive list. - Consultations Consultation #1: Spoke with [facility] who agrees to admit this patient Medical Decision Making - Medical Decision Making 64 male to be admitted for acute rhabdomyolysis versus debility of unknown cause, patient was found down, no history of substance abuse, found to have pneumonia suspect aspiration, patient significant renal failure - Lab Data Result diagrams: 09/10/24 03:40 09/10/24 03:40 Lab Results 09/04/24 09/04/24 09/04/24 Range/Units 16:55 16:56 17:04 WBC (3.8-10.6) k/uL RBC (4.30-5.90) m/uL Hgb (13.0-17.5) gm/dL Hct (39.0-53.0) % MCV (80.0-100.0) fL MCH (25.0-35.0) pg MCHC (31.0-37.0) g/dL RDW (11.5-15.5) % Plt Count (150-450) k/uL MPV Neutrophils % % Lymphocytes % % Monocytes % % Eosinophils % % Basophils % % Neutrophils # (1.3-7.7) k/uL Lymphocytes # (1.0-4.8) k/uL Monocytes # (0-1.0) k/uL Eosinophils # (0-0.7) k/uL Basophils # (0-0.2) k/uL Hypochromasia PT (10.0-12.5) sec INR (<1.2) APTT (22.0-30.0) sec Sodium 136 L (137-145) mmol/L Potassium 5.7 H (3.5-5.1) mmol/L Chloride 95 L (98-107) mmol/L Carbon Dioxide 14 L (22-30) mmol/L Anion Gap 27 mmol/L BUN 137 H* (9-20) mg/dL Creatinine 8.82 H* (0.66-1.25) mg/dL Est GFR (CKD-EPI)AfAm 7 (>60 ml/min/1.73 sqM) Est GFR (CKD-EPI)NonAf 6 (>60 ml/min/1.73 sqM) Glucose 578 H* (74-99) mg/dL POC Glucose (mg/dL) 557 H* (70-110) mg/dL POC Glu Medical Record Librarians Teacher ID Dee Cooper Lactic Ac Sepsis Rflx Plasma Lactic Acid Protillo (0.7-2.0) mmol/L Calcium 8.2 L (8.4-10.2) mg/dL Phosphorus 10.6 H* (2.5-4.5) mg/dL Magnesium 2.7 H (1.6-2.3) mg/dL Total Bilirubin 0.9 (0.2-1.3) mg/dL AST 150 H (17-59) U/L ALT 71 H (4-49) U/L Alkaline Phosphatase 112 (38-126) U/L Creatine Kinase 7555 H* (55-170) U/L Troponin I (0.000-0.034) ng/mL NT-Pro-B Natriuret Pep 4510 pg/mL Total Protein 6.9 (6.3-8.2) g/dL Albumin 3.9 (3.5-5.0) g/dL Salicylates <1.0 mg/dL Acetaminophen <10.0 ug/mL Serum Alcohol <10 mg/dL Acetone, Qual Positive (Negative) Blood Type A Negative Blood Type Confirm Blood Type Recheck No Previous Record Bld Type Recheck Status CABO Indicated Antibody Screen NEGATIVE Spec Expiration Date 09/07/2024 - 235409/04/24 09/04/24 09/04/24 Range/Units 17:04 17:04 17:04 WBC 17.3 H (3.8-10.6) k/uL RBC 4.79 (4.30-5.90) m/uL Hgb 14.6 (13.0-17.5) gm/dL Hct 45.1 (39.0-53.0) % MCV 94.1 (80.0-100.0) fL MCH 30.5 (25.0-35.0) pg MCHC 32.4 (31.0-37.0) g/dL RDW 14.5 (11.5-15.5) % Plt Count 226 (150-450) k/uL MPV 9.1 Neutrophils % 93 % Lymphocytes % 3 % Monocytes % 3 % Eosinophils % 0 % Basophils % 0 % Neutrophils # 16.0 H (1.3-7.7) k/uL Lymphocytes # 0.5 L (1.0-4.8) k/uL Monocytes # 0.5 (0-1.0) k/uL Eosinophils # 0.0 (0-0.7) k/uL Basophils # 0.0 (0-0.2) k/uL Hypochromasia Slight PT 10.3 (10.0-12.5) sec INR 0.9 (<1.2) APTT 27.6 (22.0-30.0) sec Sodium (137-145) mmol/L Potassium (3.5-5.1) mmol/L Chloride (98-107) mmol/L Carbon Dioxide (22-30) mmol/L Anion Gap mmol/L BUN (9-20) mg/dL Creatinine (0.66-1.25) mg/dL Est GFR (CKD-EPI)AfAm (>60 ml/min/1.73 sqM) Est GFR (CKD-EPI)NonAf (>60 ml/min/1.73 sqM) Glucose (74-99) mg/dL POC Glucose (mg/dL) (70-110) mg/dL POC Glu Medical Record Librarians Teacher ID Lactic Ac Sepsis Rflx Plasma Lactic Acid Portillo 2.6 H* (0.7-2.0) mmol/L Calcium (8.4-10.2) mg/dL Phosphorus (2.5-4.5) mg/dL Magnesium (1.6-2.3) mg/dL Total Bilirubin (0.2-1.3) mg/dL AST (17-59) U/L ALT (4-49) U/L Alkaline Phosphatase (38-126) U/L Creatine Kinase (55-170) U/L Troponin I (0.000-0.034) ng/mL NT-Pro-B Natriuret Pep pg/mL Total Protein (6.3-8.2) g/dL Albumin (3.5-5.0) g/dL Salicylates mg/dL Acetaminophen ug/mL Serum Alcohol mg/dL Acetone, Qual (Negative) Blood Type Blood Type Confirm Blood Type Recheck Bld Type Recheck Status Antibody Screen Spec Expiration Date 12/07/1909/04/24 09/04/24 Range/Units 17:04 17:20 17:59 WBC (3.8-10.6) k/uL RBC (4.30-5.90) m/uL Hgb (13.0-17.5) gm/dL Hct (39.0-53.0) % MCV (80.0-100.0) fL MCH (25.0-35.0) pg MCHC (31.0-37.0) g/dL RDW (11.5-15.5) % Plt Count (150-450) k/uL MPV Neutrophils % % Lymphocytes % % Monocytes % % Eosinophils % % Basophils % % Neutrophils # (1.3-7.7) k/uL Lymphocytes # (1.0-4.8) k/uL Monocytes # (0-1.0) k/uL Eosinophils # (0-0.7) k/uL Basophils # (0-0.2) k/uL Hypochromasia PT (10.0-12.5) sec INR (<1.2) APTT (22.0-30.0) sec Sodium (137-145) mmol/L Potassium (3.5-5.1) mmol/L Chloride (98-107) mmol/L Carbon Dioxide (22-30) mmol/L Anion Gap mmol/L BUN (9-20) mg/dL Creatinine (0.66-1.25) mg/dL Est GFR (CKD-EPI)AfAm (>60 ml/min/1.73 sqM) Est GFR (CKD-EPI)NonAf (>60 ml/min/1.73 sqM) Glucose (74-99) mg/dL POC Glucose (mg/dL) (70-110) mg/dL POC Glu Medical Record Librarians Teacher ID Lactic Ac Sepsis Rflx Y Plasma Lactic Acid Portillo (0.7-2.0) mmol/L Calcium (8.4-10.2) mg/dL Phosphorus (2.5-4.5) mg/dL Magnesium (1.6-2.3) mg/dL Total Bilirubin (0.2-1.3) mg/dL AST (17-59) U/L ALT (4-49) U/L Alkaline Phosphatase (38-126) U/L Creatine Kinase (55-170) U/L Troponin I 0.043 H* (0.000-0.034) ng/mL NT-Pro-B Natriuret Pep pg/mL Total Protein (6.3-8.2) g/dL Albumin (3.5-5.0) g/dL Salicylates mg/dL Acetaminophen ug/mL Serum Alcohol mg/dL Acetone, Qual (Negative) Blood Type Blood Type Confirm A Negative Blood Type Recheck Bld Type Recheck Status Antibody Screen Spec Expiration Date - EKG Data -: EKG Interpreted by Me (EKG reviewed GA 180 QRS 79 QTc 410) - Radiology Data Radiology results: report reviewed (CT brain negative for acute disease chest x- ray positive pneumonia), image reviewed Critical Care Time Critical Care Time: Yes Total Critical Care Time: 32 Disposition Clinical Impression: CON (acute kidney injury), Diabetes, Weakness, Dyspnea, Hypoxia, Altered mental status, Delirium due to general medical condition, Pneumonia, Rhabdomyolysis, Pulmonary edema, Sepsis Disposition: ADMITTED IP TO THIS HOSP Condition: Critical Is patient prescribed a controlled substance at d/c from ED?: No Time of Disposition: 18:00
[2024-09-04] MEDS: SODIUM CHLORIDE 0.9% 1,000 ML IV STA ×2 (16:56→17:01)
[2024-09-04 17:00] LABS: Glucose,Whole Blood 557 mg/dL (70-110)
[2024-09-04] MEDS: SODIUM BICARB 8.4% 50 ML SYR (1 MEQ/ML) IV STA ×2 (17:00)
--- NOTE | 2024-09-04 17:13 | XR ---
EXAMINATION TYPE: XR chest 1V portable DATE OF EXAM: 09/04/2024 5:04 PM COMPARISON: 04/25/2024 CLINICAL INDICATION: Male, 64 years old with history of ams, TECHNIQUE: XR chest 1V portable view(s) obtained. FINDINGS: The heart size is the prominent. The pulmonary vasculature is normal. There is some mild linear opacity within the left peripheral midlung. Correlate for atelectasis. Timoteo y pneumonia could be considered. IMPRESSION: 1. Mild linear infiltrate within the mid left lung may be atelectasis or early pneumonia. Follow-up c an be as clinically indicated. [facility], , 09/04/2024 5:10 PM
[2024-09-04 17:18] LABS: Basophils % (A) 0 %; Eosinophils % (A) 0 %; HCT 45.1 % (39.0-53.0); HGB 14.6 gm/dL (13.0-17.5); Hypochromasia Slight; Lymphocytes # (A) 0.5 k/uL (1.0-4.8); Lymphocytes % (A) 3 %; MCH 30.5 pg (25.0-35.0); MCHC 32.4 g/dL (31.0-37.0); MCV 94.1 fL (80.0-100.0); Mean Platelet Volume 9.1; Monocytes # (A) 0.5 k/uL (0-1.0); Monocytes % (A) 3 %; Neutrophils % (A) 93 %; Platelet Count 226 k/uL (150-450); RBC 4.79 m/uL (4.30-5.90); RDW 14.5 % (11.5-15.5); WBC 17.3 k/uL (3.8-10.6)
[2024-09-04 17:25] LABS: INR 0.9 (<1.2); Partial Thromboplastin Time 27.6 sec (22.0-30.0); Prothrombin Time 10.3 sec (10.0-12.5)
[2024-09-04] MEDS: SODIUM CHLORIDE 0.9% 500 ML 500 ML IV STA (17:28)
[2024-09-04 17:29] LABS: ALT 71 U/L (4-49); AST 150 U/L (17-59); Acetaminophen <10.0 ug/mL; African American GFR (CKD) 7 (>60 ml/min/1.73 sqM); Albumin 3.9 g/dL (3.5-5.0); Alcohol <10 mg/dL; Alkaline Phosphatase 112 U/L (38-126); Anion Gap 27 mmol/L; Calcium 8.2 mg/dL (8.4-10.2); Carbon Dioxide 14 mmol/L (22-30); Chloride 95 mmol/L (98-107); Magnesium 2.7 mg/dL (1.6-2.3); Non-African American GFR(CKD) 6 (>60 ml/min/1.73 sqM); Potassium 5.7 mmol/L (3.5-5.1); Salicylate <1.0 mg/dL; Sodium 136 mmol/L (137-145); Total Bilirubin 0.9 mg/dL (0.2-1.3); Total Protein 6.9 g/dL (6.3-8.2)
[2024-09-04 17:35] LABS: NT-Pro-B-Type Natriuretic Pept 4510 pg/mL
--- NOTE | 2024-09-04 17:54 | CT ---
EXAMINATION TYPE: CT brain jeetine wo con DATE OF EXAM: 09/04/2024 5:30 PM COMPARISON: None. CLINICAL INDICATION: Male, 64 years old with history of ams, FOUND ON FLOOR TECHNIQUE: CT of the brain is performed utilizing 3 mm thick sections through the posterior fossa and 3 mm thick sections through the remaining calvarium. Study is performed within 24 hours of arrival to the hospital. Contrast used: mL of , (none if empty) CT DLP: 1305.3 mGycm, Automated exposure control for dose reduction was used. FINDINGS: No abnormal hyperdensity is present to suggest an acute intracranial hemorrhage. No mass lesion is evident. No acute infarcts are evident. Ventricles and sulci are appropriate for the patient age. Paranasal sinuses and mastoid air cells within the [id number] are clear. IMPRESSIONS: 1. No acute intracranial process. Follow-up MRI can be performed as clinically indicated. CT cervical spine. COMPARISON: None TECHNIQUE: CT of the cervical spine is performed in the axial plane at 2 mm thick sections. Reconstr ucted images in the coronal, and sagittal plane are reviewed on the computer. FINDINGS: No acute fractures are evident. Spina bifida occulta of C1 is present, normal variant Vertebral body alignment is normal. These narrowing of disc height is present greatest at C5-6. Vertebral body heights are preserved. No spinal canal stenosis is evident. No neural foraminal stenosis is evident. IMPRESSION: 1. No acute osseous abnormality cervical spine. 2. Mild diffuse degenerative disc changes, greatest C5-6 [facility], , 09/04/2024 5:51 PM
[2024-09-04 17:59] LABS: Blood Urea Nitrogen 137 mg/dL (9-20); Glucose 578 mg/dL (74-99)
[2024-09-04 18:00] LABS: Phosphorus 10.6 mg/dL (2.5-4.5)
[2024-09-04] MEDS ORDERED: PNEUMONIA PROTOCOL UTILIZED 1 EACH MISC PO PRN (18:07)
[2024-09-04] MEDS ORDERED: NALOXONE 0.4 MG/ML 1 ML VIAL IV PRN (18:07)
[2024-09-04] MEDS: IPRATROPIUM-ALBUTEROL 3 ML NEB INHALATION PRN (18:42)
[2024-09-04 18:43] LABS: Creatine Kinase 7555 U/L (55-170)
[2024-09-04 18:48] LABS: Bacteria,Urine Many /hpf; RBC,Urine >182 /hpf (0-5); WBC,Urine >182 /hpf (0-5)
[2024-09-04 18:52] LABS: Appearance,Urine Turbid (Clear)
[2024-09-04 18:53] LABS: Color,Urine Brown
[2024-09-04 19:02] LABS: VBG PH 7.3 (7.31-7.41)
[2024-09-04] MEDS: AZITHROMYCIN 500 MG in SODIUM CHLORIDE 0.9% 250 ML IVPB STA (19:03)
[2024-09-04] MEDS: PANTOPRAZOLE 40 MG/10 ML VIAL IV SCH (19:07)
[2024-09-04] MEDS: DEXTROSE 5% IN WATER 1,000 ML with SODIUM BICARB (1 MEQ/ML) 150 ML IV SCH (19:11)
[2024-09-04 21:01] LABS: Glucose,Whole Blood 538 mg/dL (70-110)
[2024-09-04 22:12] LABS: Glucose,Whole Blood 549 mg/dL (70-110)
[2024-09-04] MEDS: INSULIN REGULAR 100 UNIT in SODIUM CHLORIDE 0.9% 100 ML IV SCH (22:12)
[2024-09-04 23:24] LABS: Glucose,Whole Blood 557 mg/dL (70-110)
[2024-09-04 23:58] LABS: Potassium 4.7 mmol/L (3.5-5.1)
[2024-09-04 23:59] LABS: African American GFR (CKD) 8 (>60 ml/min/1.73 sqM); Anion Gap 21 mmol/L; Carbon Dioxide 16 mmol/L (22-30); Chloride 102 mmol/L (98-107); Non-African American GFR(CKD) 7 (>60 ml/min/1.73 sqM); Sodium 139 mmol/L (137-145)
[2024-09-05 00:13] LABS: Blood Urea Nitrogen 141 mg/dL (9-20); Glucose 540 mg/dL (74-99)
[2024-09-05 00:19] LABS: Glucose,Whole Blood 517 mg/dL (70-110)
[2024-09-05] MEDS: metroNIDAZOLE-NS PMX 500 MG in SALINE 1 100ML.BAG IVPB SCH (00:57)
--- NOTE | 2024-09-05 00:59 | XR ---
EXAMINATION TYPE: XR chest 1V portable DATE OF EXAM: 09/05/2024 CLINICAL HISTORY: Difficulty breathing progress study. TECHNIQUE: Single AP portable semiupright view of the chest is obtained. COMPARISON: Chest x-ray from one day earlier FINDINGS: Stable mild cardiomegaly and mild interstitial edema. No pleural effusion or pneumothorax seen bilaterally. Osseous structures are intact. IMPRESSION: Suspect mild CHF exacerbation/fluid overload state. Correlate clinically. [facility], , 09/05/2024 12:57 AM
[2024-09-05 01:23] LABS: Glucose,Whole Blood 477 mg/dL (70-110)
[2024-09-05 02:12] LABS: Glucose,Whole Blood 488 mg/dL (70-110)
[2024-09-05 02:29] LABS: Amphetamine Screen,Urine Not Detected (NotDetected); Barbiturate Screen,Urine Not Detected (NotDetected); Benzodiazepines Screen,Urine Not Detected (NotDetected); Cocaine Screen,Urine Not Detected (NotDetected); Methadone Screen, Urine Not Detected (NotDetected); Opiate Screen,Urine Not Detected (NotDetected); Oxycodone Screen, Urine Not Detected (NotDetected); Phencyclidine Screen,Urine Not Detected (NotDetected); Tricyclic Antidepressant,Urine Not Detected (NotDetected); Urn Cannabinoid Scrn Not Detected (NotDetected)
[2024-09-05 03:07] LABS: Glucose,Whole Blood 367 mg/dL (70-110)
[2024-09-05 04:06] LABS: Glucose,Whole Blood 276 mg/dL (70-110)
[2024-09-05 04:55] LABS: Glucose,Whole Blood 254 mg/dL (70-110)
[2024-09-05 06:00] LABS: Basophils % (A) 0 %; Eosinophils % (A) 0 %; HCT 37.8 % (39.0-53.0); HGB 12.3 gm/dL (13.0-17.5); Lymphocytes # (A) 0.2 k/uL (1.0-4.8); Lymphocytes % (A) 2 %; MCH 29.4 pg (25.0-35.0); MCHC 32.6 g/dL (31.0-37.0); MCV 90.1 fL (80.0-100.0); Mean Platelet Volume 9.4; Monocytes # (A) 0.3 k/uL (0-1.0); Monocytes % (A) 2 %; Neutrophils # (A) 14.1 k/uL (1.3-7.7); Neutrophils % (A) 95 %; Platelet Count 173 k/uL (150-450); RDW 14.9 % (11.5-15.5); WBC 14.8 k/uL (3.8-10.6)
--- NOTE | 2024-09-05 06:00 | P.CNPUL ---
History of Present Illness Consult date: 09/05/24 Requesting physician: Bradford Cooper Reason for consult: other (ICU management) Chief complaint: Fall History of present illness: Patient is a 64-year-old male with past medical history significant for diabetes mellitus, chronic kidney disease, hyperlipidemia, hypertension, among other things. Patient is currently in the intensive care unit, he is a poor historian. Unable to provide reliable history. The ER provider did not contact me. Per the ER documentation, patient was found on the ground for an unknown known amount of time, last seen well 2 weeks prior by his sister. He was found to be in acute rhabdomyolysis with acute renal failure. He was also found with elevated blood sugars. CT of the brain and C-spine without contrast showing no acute intracranial process and no acute osseous abnormalities of the C-spine. Initial labs include a CBC: WBC count 17.3, hemoglobin 14.6, hematocrit 45.1, platelets 226. CMP: Sodium 136, potassium 5.7, chloride 95, serum bicarb 14, BUN 137, creatinine 8.82, glucose 578. Lactic 1.5. Magnesium 2.7. LFTs mildly elevated. Troponin 0.043. NT proBNP 4510. EKG: normal sinus rhythm, rate 88 bpm, incomplete RBB pattern, without obvious acute ischemic changes. Urine drug screen unremarkable. Serum ETOH < 10. Currently evaluating this patient in the intensive care unit. CPK was 7555 on arrival. Did receive 1.5 L normal saline bolus in in ED and started on normal saline at 130 ml/hr. Subsequently started on sodium bicarbonate infusion 3 A in D5W at 100 mL/h. urine output is in the order of 30 to 50 cc/h. Nephrology is managing. Repeat potassium is down to 4.7. On arrival blood glucose 578, serum bicarb 12, anion gap 27, acetone positive. Patient has also been started on insulin infusion Per protocol. He did develop some respiratory distress, breathing in the high 40s. I did ask for the pateint to be placed on BiPAP with settings 10/5 and FiO2 to be titrated appropriately. Chest x-ray showing cardiomegaly. There is a left midlung linear infiltrates concerning for atelectasis or early pneumonia. Patient does have bruising to his left lateral chest. It is painful to palpation without crepitus or subcutaneous emphysema. Patient was empirically started on antibiotics in the ED.Current vitals: 97.6 F, blood pressure 115/85 mmHg, heart rate 78 bpm, tachypneic breathing in the high 40s, SpO2 is 100% on BiPAP with settings 10/5 FiO2 100%. Prognosis is guarded. Review of Systems ROS unobtainable: due to mental status Past Medical History Past Medical History: Diabetes Mellitus, Hyperlipidemia History of Any Multi-Drug Resistant Organisms: None Reported Past Surgical History: Orthopedic Surgery, Tonsillectomy Additional Past Surgical History / Comment(s): tip of rt middle finger removed from work injury Past Anesthesia/Blood Transfusion Reactions: No Reported Reaction Past Psychological History: No Psychological Hx Reported Smoking Status: Never smoker Past Alcohol Use History: Unable to Obtain Past Drug Use History: Unable to Obtain Medications and Allergies Home Medications Medication Instructions Recorded Confirmed Type Lovastatin [Mevacor] 40 mg PO W/SUPPER 05/01/18 09/04/24 History Ferrous Sulfate [Iron (65 MG 325 mg PO DAILY 06/17/22 09/04/24 History Elemental)] Furosemide [Lasix] 40 mg PO BID@0900,1600 08/05/22 09/04/24 History hydrALAZINE HCL [Apresoline] 100 mg PO TID 08/05/22 09/04/24 History Isosorbide Mononitrate ER [Imdur] 30 mg PO DAILY 12/10/22 09/04/24 History allopurinoL [Zyloprim] 100 mg PO BID 12/10/22 09/04/24 History Famotidine [Pepcid] 20 mg PO HS PRN 05/06/23 09/04/24 History Glimepiride [Amaryl] 8 mg PO W/BRKFST 05/06/23 09/04/24 History carvediloL [Coreg] 25 mg PO BID-W/MEALS 05/06/23 09/04/24 History metFORMIN HCL ER [Glucophage XR] 500 mg PO DAILY 05/06/23 09/04/24 History Dulaglutide [Trulicity] 3 mg SQ Q7D 04/25/24 09/04/24 History amLODIPine [Norvasc] 5 mg PO DAILY 04/25/24 09/04/24 History lisinopriL [Zestril] 2.5 mg PO DAILY 04/25/24 09/04/24 History Dapagliflozin Propanediol [Farxiga] 5 mg PO DAILY 09/04/24 09/04/24 History Tamsulosin [Flomax] 0.4 mg PO HS 09/04/24 09/04/24 History calcitrioL [Rocaltrol] 0.25 mcg PO Q7D 09/04/24 09/04/24 History Allergies Allergy/AdvReac Type Severity Reaction Status Date / Time No Known Allergies Allergy Verified 09/04/24 19:37 Physical Exam Vitals: Vital Signs Temp Pulse Resp BP Pulse Ox FiO2 09/04/24 23:00 45 H 115/85 100 09/04/24 22:20 100 09/04/24 22:19 100 09/04/24 22:10 39 H 115/85 95 09/04/24 21:00 97.6 F 47 H 115/85 94 L 09/04/24 20:40 97.5 F L 64 26 H 120/76 95 09/04/24 20:00 78 26 H 119/78 95 09/04/24 18:49 70 09/04/24 18:44 76 09/04/24 17:06 86 24 88/68 91 L 09/04/24 16:41 88 24 82/62 91 L 09/04/24 16:39 97.7 F 89 24 80/60 91 L Intake and Output 09/04/24 09/04/24 09/05/24 14:59 22:59 06:59 Intake Total 460 106.875 Output Total 85 40 Balance 375 66.875 Intake: IV 460 100 Dextrose 5% in Water 1, 200 100 000 ml @ 100 mls/hr IV . [id number] MONI with Sodium Bicarb (1 Meq/ml) 150 ml Rx#:[id number] Sodium Chloride 0.9% 1, 260 000 ml @ 130 mls/hr IV . Q7H42M STA Rx#:[id number] Intake, IV Titration 6.875 Amount Insulin Regular 100 unit 6.875 In Sodium Chloride 0.9% 100 ml @ Titrate IV .Q0M MONI Rx#:[id number] Output: Urine 85 40 Other: Voiding Method Indwelling Catheter Weight 68.039 kg GENERAL EXAM: Alert, 64-year-old male in respiratory distress on BiPAP HEAD: Normocephalic and atraumatic EYES: Normal reaction of pupils, equal size. NOSE: Clear with pink turbinates. THROAT: No erythema or exudates. NECK: No masses, no JVD. CHEST: Left chest ecchymosis/erythema, painful to palpation, no obvious crepitus or subcutaneous emphysema LUNGS: Equal air entry with no crackles, wheeze, rhonchi or dullness. On BiPAP with settings 10/5 FiO2 100%. Respiratory rate mid 40s, tidal volumes 6 to 700 cc. CVS: S1 and S2 normal with no audible murmur, regular rhythm. No extra heart sounds ABDOMEN: No hepatosplenomegaly, active bowel sounds, no guarding or rigidity. SPINE: No scoliosis or deformity SKIN: No rashes CENTRAL NERVOUS SYSTEM: Alert, follows simple commands, generalized weakness, no obvious focal deficits, tone is normal in all 4 extremities. EXTREMITIES: There is no peripheral edema, clubbing, or cyanosis. Peripheral pulses are intact. Results - Laboratory Findings CBC and BMP: 09/04/24 17:04 09/04/24 23:17 PT/INR, D-dimer PT 10.3 sec (10.0-12.5) 09/04/24 17:04 INR 0.9 (<1.2) 09/04/24 17:04 Abnormal lab findings: Abnormal Labs 09/04/24 09/04/24 09/04/24 16:56 17:04 17:04 WBC 17.3 H Neutrophils # 16.0 H Lymphocytes # 0.5 L VBG pH VBG HCO3 Sodium 136 L Potassium 5.7 H Chloride 95 L Carbon Dioxide 14 L BUN 137 H* Creatinine 8.82 H* Glucose 578 H* POC Glucose (mg/dL) 557 H* Plasma Lactic Acid Portillo Calcium 8.2 L Phosphorus 10.6 H* Magnesium 2.7 H AST 150 H ALT 71 H Creatine Kinase 7555 H* Troponin I Urine RBC Urine WBC Urine WBC Clumps Urine Bacteria 09/04/24 09/04/24 09/04/24 17:04 17:04 18:20 WBC Neutrophils # Lymphocytes # VBG pH 7.30 L VBG HCO3 18 L Sodium Potassium Chloride Carbon Dioxide BUN Creatinine Glucose POC Glucose (mg/dL) Plasma Lactic Acid Portillo 2.6 H* Calcium Phosphorus Magnesium AST ALT Creatine Kinase Troponin I 0.043 H* Urine RBC Urine WBC Urine WBC Clumps Urine Bacteria 12/07/1909/04/24 09/04/24 18:24 21:00 22:11 WBC Neutrophils # Lymphocytes # VBG pH VBG HCO3 Sodium Potassium Chloride Carbon Dioxide BUN Creatinine Glucose POC Glucose (mg/dL) 538 H* 549 H* Plasma Lactic Acid Portillo Calcium Phosphorus Magnesium AST ALT Creatine Kinase Troponin I Urine RBC >182 H Urine WBC >182 H Urine WBC Clumps Many H Urine Bacteria Many H 09/04/24 23:22 WBC Neutrophils # Lymphocytes # VBG pH VBG HCO3 Sodium Potassium Chloride Carbon Dioxide BUN Creatinine Glucose POC Glucose (mg/dL) 557 H* Plasma Lactic Acid Portillo Calcium Phosphorus Magnesium AST ALT Creatine Kinase Troponin I Urine RBC Urine WBC Urine WBC Clumps Urine Bacteria - Diagnostic Findings Chest x-ray: image reviewed Assessment and Plan Assessment: Fall, last known well was 2 weeks prior, CT of the brain and C-spine without contrast showing no acute intracranial process and no acute osseous abnormalities of the C-spine Acute rhabdomyelosis, CPK elevated at 7555 Acute kidney injury, secondary to above Acute diabetic ketoacidosis, blood glucose 578, serum bicarb 14, anion gap 27, acetone positive Hyperkalemia, potassium improved down to 4.7 Anion gap metabolic acidosis Altered mental status, likely secondary to acute metabolic encephalopathy secondary to combination of above Acute hypoxemic respiratory failure, was placed on BiPAP to support work of breathing, chest x-ray showing cardiomegaly and pulmonary vascular congestion, concerning for fluid overload. Left midlung linear infiltrate concerning for atelectasis or early pneumonia. Patient does have some traumatic bruising to his left lateral chest wall. Acute leukocytosis Elevated troponins, in the setting of acute renal failure History of hypertension History of hyperlipidemia History of type 2 diabetes mellitus Chronic kidney disease stage IIIb History of frequent urinary tract infections Plan: Patient's medications, labs, imaging reviewed Continue patient on BiPAP to support work of breathing, may titrate FiO2 as appropriate Empirically covered on antibiotics in the ED. blood cultures are pending. Check procalcitonin. Continue IV fluids as ordered, monitor CPK, monitor urine output, nephrology is consulted and aware Continue insulin infusion per protocol GI prophylaxis: Protonix DVT prophylaxis: Subcutaneous heparin Patient is currently admitted to the intensive care unit, his respiratory status is tenuous, we will continue to follow and additional recommendations are forthcoming. Dictation was performed using [employer] software, please excuse grammatical errors I have personally seen and examined the patient, performed the documentation and the assessment and plan as written. Number of minutes spent on the visit:20 .. Time with Patient: Greater than 30
[2024-09-05 06:16] LABS: Glucose,Whole Blood 222 mg/dL (70-110)
[2024-09-05 06:16] LABS: African American GFR (CKD) 8 (>60 ml/min/1.73 sqM); Anion Gap 18 mmol/L; Calcium 7.3 mg/dL (8.4-10.2); Carbon Dioxide 23 mmol/L (22-30); Chloride 104 mmol/L (98-107); Glucose 190 mg/dL (74-99); Non-African American GFR(CKD) 7 (>60 ml/min/1.73 sqM); Potassium 3.5 mmol/L (3.5-5.1); Sodium 145 mmol/L (137-145)
[2024-09-05] MEDS: FUROSEMIDE 10 MG/ML 10 ML VIAL IV STA (06:21)
[2024-09-05 06:24] LABS: ABG Base Excess 3.1 mmol/L; ABG HCO3 25 mmol/L (21-25); ABG PCO2 28 mmHg (35-45); ABG PO2 178 mmHg (83-108); ABG TCO2 25 mmol/L (19-24); Allen Test Performed? Yes
[2024-09-05 06:27] LABS: ABG PH 7.56 (7.35-7.45)
[2024-09-05 07:07] LABS: Glucose,Whole Blood 140 mg/dL (70-110)
[2024-09-05 07:55] LABS: Blood Urea Nitrogen 147 mg/dL (9-20)
[2024-09-05 07:59] LABS: Glucose,Whole Blood 110 mg/dL (70-110)
[2024-09-05 08:55] LABS: Creatine Kinase 9320 U/L (55-170)
[2024-09-05] MEDS ORDERED: ONDANSETRON 4 MG/2 ML VIAL IVP PRN (09:41)
[2024-09-05 09:48] LABS: Glucose,Whole Blood 122 mg/dL (70-110)
[2024-09-05 09:55] LABS: Glucose,Whole Blood 140 mg/dL (70-110)
[2024-09-05] MEDS: MORPHINE SULFATE 4 MG/ML SYRINGE IVP STA (10:28)
[2024-09-05] MEDS: LORazepam 2 MG/ML INJ IV STA (10:29)
[2024-09-05] MEDS: SUCCINYLCHOLINE CHLORIDE 200 MG/10 ML VIAL IV STA (10:30)
--- NOTE | 2024-09-05 10:32 | CA ---
Transthoracic Echo Report Name: Gopi York Age: 64 Gender: M : 1960 Exam Date: 09/05/2024 08:22 Exam Location: [facility] Ht (in): 63 Wt (lb): 165 Ordering Physician: Gil Garcia Attending/Referring Phys: Maintenance Machine Repairer Lily Whyte RDCS Procedure CPT: Indications: evaluate LV function Cardiac Hx: Technical Quality: Technically difficult study Contrast 1: Definity Total Dose (mL): 1 Contrast 2: Total Dose (mL): MEASUREMENTS (Male / Female) Normal Values 2D ECHO LV Diastolic Diameter PLAX 4.1 cm 4.2 - 5.9 / 3.9 - 5.3 cm LV Systolic Diameter PLAX 3.6 cm IVS Diastolic Thickness 1.1 cm 0.6 - 1.0 / 0.6 - 0.9 cm LVPW Diastolic Thickness 0.9 cm 0.6 - 1.0 / 0.6 - 0.9 cm LV Relative Wall Thickness 0.5 LVOT Diameter 2.3 cm LV Diastolic Volume MOD BP 77.2 cm??? 67 - 155 / 56 - 104 cm??? LV Systolic Volume MOD BP 48.1 cm??? 22 - 58 / 19 - 49 cm??? LV Ejection Fraction MOD BP 37.7 % >= 55 % LV Cardiac Index MOD BP 1384.2 cm???/min???m??? LV Diastolic Volume MOD 4C 92.3 cm??? LV Systolic Volume MOD 4C 55.3 cm??? LV Ejection Fraction MOD 4C 40.1 % LV Cardiac Index MOD 4C 1760.5 cm???/min???m??? LV Diastolic Length 4C 6.8 cm LV Systolic Length 4C 6.1 cm LV Diastolic Volume MOD 2C 64.0 cm??? LV Systolic Volume MOD 2C 39.6 cm??? LV Ejection Fraction MOD 2C 38.1 % LV Cardiac Index MOD 2C 1162.0 cm???/min???m??? LV Diastolic Length 2C 6.7 cm LV Systolic Length 2C 5.7 cm LA Volume 25.8 cm??? 18 - 58 / 22 - 52 cm??? LA Volume Index 14.0 cm???/m??? 16 - 28 cm???/m??? Ascending Aorta Diameter 3.8 cm DOPPLER AV Peak Velocity 117.3 cm/s AV Peak Gradient 5.5 mmHg AV Mean Velocity 95.0 cm/s AV Mean Gradient 3.8 mmHg AV Velocity Time Integral 16.0 cm LVOT Peak Velocity 84.7 cm/s LVOT Peak Gradient 2.9 mmHg LVOT Velocity Time Integral 10.5 cm LVOT Stroke Volume 45.4 cm??? LVOT Stroke Volume Index 25.5 ml/m??? LVOT Cardiac Index 2164.4 cm???/min???m??? AV Area Cont Eq vti 2.8 cm??? AV Area Cont Eq pk 3.1 cm??? MV Area PHT 4.7 cm??? Mitral E Point Velocity 33.0 cm/s Mitral A Point Velocity 56.8 cm/s Mitral E to A Ratio 0.6 MV Deceleration Time 162.7 ms PV Peak Velocity 67.1 cm/s PV Peak Gradient 1.8 mmHg FINDINGS Left Ventricle Left ventricular ejection fraction is estimated at 30-35 %. Moderately decreased left ventricular ejection fraction with regional variability. Right Ventricle Right ventricle not well visualized. Right Atrium Right atrium not well visualized. Left Atrium Normal left atrial size. Mitral Valve Structurally normal mitral valve. No mitral stenosis, regurgitation or prolapse. Aortic Valve Trileaflet aortic valve. Aortic valve sclerosis. No aortic valve stenosis or regurgitation. Tricuspid Valve Structurally normal tricuspid valve. No tricuspid stenosis. No tricuspid regurgitation. Pulmonic Valve Pulmonic valve not well visualized. No pulmonic stenosis. No pulmonic regurgitation. Pericardium No pericardial effusion. Aorta Normal size aortic root and proximal ascending aorta. CONCLUSIONS Left ventricle is at upper limits of normal with the global decrease in contractility estimated ejection fraction of about 30%. Doppler exam did not reveal any significant abnormality. There is no pericardial effusion. Right ventricle was poorly seen Previewed by: Dr. Faye Lerma MD (Electronically Signed) Final Date: 05 September 2024 10:30
[2024-09-05] MEDS: CISATRACURIUM 2 MG/ML 5 ML VIAL IV ONE (10:35)
[2024-09-05] MEDS: NOREPINEPHRINE 4 MG in SODIUM CHLORIDE 0.9% 250 ML IV SCH (11:00)
--- NOTE | 2024-09-05 11:19 | PCN ---
PROCEDURE NOTE PROCEDURE PERFORMED: Endotracheal intubation. PREOPERATIVE DIAGNOSIS: Respiratory failure. POSTOPERATIVE DIAGNOSIS: Respiratory failure. CIRCULATION CLERK: Dr. Leon. He was assisted by Dr. Elkin Bennett and also Dr. Mounika Roberson. DESCRIPTION OF PROCEDURE: The patient's procedure took place in room 260. There was informed consent. The patient was intubated with a #8 endotracheal tube. We used a standard laryngoscope and a #3 Magnolia blade. The endotracheal tube had a stylet in place. The patient was sedated with 2 mg of Ativan, 4 mg of morphine, and then, 3 mL or 60 mg of succinylcholine. A rapid sequence intubation was performed. The endotracheal tube was seen to pass through the glottic opening into the trachea. There was good bilateral breath sound. The stylet was removed. The balloon on the endotracheal tube was inflated. There was good color change on the CO2 monitor. The endotracheal tube was secured, and the patient was connected to the ventilator. There was no immediate complication. A chest x-ray was ordered. MMODL / IJN: [id number] /
--- NOTE | 2024-09-05 11:25 | PCN ---
PROCEDURE NOTE PROCEDURE PERFORMED: Right radial arterial line. PREOPERATIVE DIAGNOSES: Frequent blood draws and blood gas monitoring. POSTOPERATIVE DIAGNOSES: Frequent blood draws and blood gas monitoring. INDICATIONS: Hemodynamic monitoring. DESCRIPTION OF PROCEDURE: A time-out was completed verifying correct patient, procedure, site, positioning, and implant(s) or special equipment if applicable. Chad's test was performed to ensure adequate perfusion. The patient's right wrist was prepped and draped in sterile fashion. 1% Lidocaine was used to anesthetize the area. An 18G Arrow arterial line was introduced into the right radial artery. The catheter was threaded over the guide wire and the needle was removed with appropriate pulsatile blood return. Blood loss was minimal. The catheter was then sutured in place to the skin and a sterile dressing applied. Perfusion to the extremity distal to the point of catheter insertion was checked and found to be adequate. There was good blood return and waveform. The patient tolerated the procedure well. The catheter was sutured in place. A sterile dressing was applied by the nurse. There was no immediate complication. OPERATORS: Dr. Leon, Dr. Elkin Bennett, and Dr. Mounika Roberson. The patient's procedure took place in room 260. MMODL / IJN: [id number] /
--- NOTE | 2024-09-05 11:26 | PCN ---
PROCEDURE NOTE PROCEDURE PERFORMED: Left internal jugular triple-lumen catheter. PREOPERATIVE DIAGNOSIS: Administration of fluids and pressors. POSTOPERATIVE DIAGNOSIS: Administration of fluids and pressors. OPERATORS: Dr. Bennett, Dr. Leon, and Dr. Roberson. DESCRIPTION OF PROCEDURE: There was informed consent and universal timeout. The patient's procedure took place in room 260. We used the internal jugular site on the left. We did a posterior approach. There was no immediate complication. The patient tolerated the procedure well. There was good blood return from all three ports. The catheter was sutured in place. Sterile dressing applied by the nurse. A chest x-ray was ordered. The tip of the catheter was seen at the junction of superior vena cava and right atrium. MMODL / IJN: [id number] /
[2024-09-05 11:29] LABS: ABG Base Excess 3.2 mmol/L; ABG HCO3 27 mmol/L (21-25); ABG Oxygen Saturation >100.0 % (94-97); ABG PCO2 35 mmHg (35-45); ABG PH 7.49 (7.35-7.45); ABG PO2 321 mmHg (83-108); ABG TCO2 28 mmol/L (19-24)
--- NOTE | 2024-09-05 11:30 | XR ---
EXAMINATION TYPE: XR chest 1V portable DATE OF EXAM: 09/05/2024 11:20 AM COMPARISON: Chest radiographs from 09/05/2024 TECHNIQUE: XR chest 1V portable Portable AP radiograph of the chest. CLINICAL INDICATION:Male, 64 years old with history of Intubation; FINDINGS: Patient is rotated which limits evaluation. Lungs/Pleura: There is no evidence of pleural effusion, focal consolidation, or pneumothorax. Linear atelectasis within the left midlung. Mild interstitial edema. Heart/mediastinum: Cardiomediastinal silhouette is enlarged and stable. Atherosclerotic calcificatio ns are seen in the aorta. Musculoskeletal: No acute osseous pathology. Lines/Tubes: Endotracheal tube with distal tip 1.2 cm above the nicol Left IJ central venous catheter with distal tip terminating at the superior cavoatrial junction. There is coiled tubing overlying the upper neck. IMPRESSION: 1. Interval placement of endotracheal tube with distal tip approximately 1.2 cm above the nicol. Co nsider retraction 1 cm. 2. Interval placement of left IJ central venous catheter distal tip at the superior cavoatrial junct ion. No pneumothorax. 3. Cardiomegaly with mild interstitial edema. Correlate for CHF exacerbation/fluid overload state. 4. Coiled tubing overlying the neck which may represent a malpositioned enteric tube. Correlate clin ically. [facility], , 09/05/2024 11:27 AM
[2024-09-05 11:32] LABS: Allen Test Performed? no
[2024-09-05] MEDS: ACETAMINOPHEN IV (For NPO) 1,000 MG in EMPTY BAG 1 BAG IVPB PRN (11:48)
[2024-09-05] MEDS: HEPARIN SODIUM,PORCINE 5,000 UNIT/ML 1 ML VIAL SQ SCH (11:49)
[2024-09-05] MEDS: FAMOTIDINE 20 MG/2 ML VIAL IV SCH (11:51)
[2024-09-05 11:55] LABS: Glucose,Whole Blood 256 mg/dL (70-110)
--- NOTE | 2024-09-05 12:21 | P.NPCON ---
History of Present Illness - Reason for Consult acute renal failure - History of Present Illness Patient is a 64-year-old male with history of type 2 diabetes,stage IIIB to 4 with baseline creatinine at 1.8-2.0 mg/dL. Patient is admitted to the hospital as he was found unresponsive. Patient was last seen about 2 weeks ago. He is noted to have rhabdo my lysis with CK at 9320. Serum creatinine was eleva mohamud at 8.2 mg/dL with potassium at 5.7. Patient was also acidotic. Has been started on bicarb drip. Urine output was about 40-50 mL an hour initially but dropped to 5-10 mL an hour early this morning. Patient was noted to be significantly hypotensive. An art line has been placed and he has been started on levo fed. Patient was also intubated this morning. Serum potassium at 3.5 today. Metabolic acidosis has improved with CO2 of 23. Patient received 2 L of fluid bolus this morning. Past Medical History Past Medical History: Diabetes Mellitus, Hyperlipidemia History of Any Multi-Drug Resistant Organisms: None Reported Past Surgical History: Orthopedic Surgery, Tonsillectomy Additional Past Surgical History / Comment(s): tip of rt middle finger removed from work injury Past Anesthesia/Blood Transfusion Reactions: No Reported Reaction Past Psychological History: No Psychological Hx Reported Smoking Status: Never smoker Past Alcohol Use History: Unable to Obtain Past Drug Use History: Unable to Obtain Medications and Allergies Home Medications Medication Instructions Recorded Confirmed Type Lovastatin [Mevacor] 40 mg PO W/SUPPER 05/01/18 09/04/24 History Ferrous Sulfate [Iron (65 MG 325 mg PO DAILY 06/17/22 09/04/24 History Elemental)] Furosemide [Lasix] 40 mg PO BID@0900,1600 08/05/22 09/04/24 History hydrALAZINE HCL [Apresoline] 100 mg PO TID 08/05/22 09/04/24 History Isosorbide Mononitrate ER [Imdur] 30 mg PO DAILY 12/10/22 09/04/24 History allopurinoL [Zyloprim] 100 mg PO BID 12/10/22 09/04/24 History Famotidine [Pepcid] 20 mg PO HS PRN 05/06/23 09/04/24 History Glimepiride [Amaryl] 8 mg PO W/BRKFST 05/06/23 09/04/24 History carvediloL [Coreg] 25 mg PO BID-W/MEALS 05/06/23 09/04/24 History metFORMIN HCL ER [Glucophage XR] 500 mg PO DAILY 05/06/23 09/04/24 History Dulaglutide [Trulicity] 3 mg SQ Q7D 04/25/24 09/04/24 History amLODIPine [Norvasc] 5 mg PO DAILY 04/25/24 09/04/24 History lisinopriL [Zestril] 2.5 mg PO DAILY 04/25/24 09/04/24 History Dapagliflozin Propanediol [Farxiga] 5 mg PO DAILY 09/04/24 09/04/24 History Tamsulosin [Flomax] 0.4 mg PO HS 09/04/24 09/04/24 History calcitrioL [Rocaltrol] 0.25 mcg PO Q7D 09/04/24 09/04/24 History Allergies Allergy/AdvReac Type Severity Reaction Status Date / Time No Known Allergies Allergy Verified 09/04/24 19:37 Physical Exam Vitals: Vital Signs Temp Pulse Resp BP Pulse Ox FiO2 09/05/24 11:32 40 09/05/24 10:41 100 09/05/24 10:32 100 09/05/24 09:12 92 09/05/24 09:01 90 40 09/05/24 07:00 82 41 H 105/44 97 09/05/24 06:00 95 46 H 109/64 99 09/05/24 05:00 47 H 96/78 99 09/05/24 04:13 60 09/05/24 04:00 100.2 F H 48 H 109/69 100 100 09/05/24 03:00 96 45 H 123/68 09/05/24 02:00 51 H 114/85 09/05/24 01:00 96 49 H 128/112 98 09/05/24 00:47 60 09/05/24 00:00 99.3 F 47 H 117/73 99 100 09/04/24 23:04 44 H 115/85 100 09/04/24 23:00 45 H 115/85 100 09/04/24 22:20 100 09/04/24 22:10 39 H 115/85 95 09/04/24 21:00 97.6 F 47 H 115/85 94 L 09/04/24 20:40 97.5 F L 64 26 H 120/76 95 09/04/24 20:00 78 26 H 119/78 95 09/04/24 18:49 70 09/04/24 18:44 76 09/04/24 17:06 86 24 88/68 91 L 09/04/24 16:41 88 24 82/62 91 L 09/04/24 16:39 97.7 F 89 24 80/60 91 L Intake and Output 09/04/24 09/05/24 09/05/24 22:59 06:59 14:59 Intake Total 460 994.683 164.500 Output Total 85 190 10 Balance 375 804.683 154.500 Intake: IV 460 900 100 Dextrose 5% in Water 1, 200 800 100 000 ml @ 130 mls/hr IV . Q8H51M MONI with Sodium Bicarb (1 Meq/ml) 150 ml Rx#:[id number] Sodium Chloride 0.9% 1, 260 000 ml @ 130 mls/hr IV . Q7H42M STA Rx#:[id number] metroNIDAZOLE-NS PMX 500 100 mg In Saline 1 100ml.bag @ 100 mls/hr IVPB Q8HR MONI Rx#:[id number] Intake, IV Titration 94.683 64.500 Amount Insulin Regular 100 unit 94.683 64.500 In Sodium Chloride 0.9% 100 ml @ Titrate IV .Q0M [facility] Rx#:[id number] Output: Urine 85 190 10 Other: Voiding Method Indwelling Catheter Weight 68.039 kg 75 kg patient is sedated and intubated. Examination of the heart S1 and S2 Examination of the lungs bilateral breath sounds are heard Abdomen is soft nontender Examination of lower extremities shows no significant edema Results - Lab Results Most recent lab results ABG pH 7.49 (7.35-7.45) H 09/05/24 11:27 ABG pCO2 35 mmHg (35-45) 09/05/24 11:27 ABG pO2 321 mmHg (83-108) H 09/05/24 11:27 ABG HCO3 27 mmol/L (21-25) H 09/05/24 11:27 ABG O2 Saturation >100.0 % (94-97) H 09/05/24 11:27 Calcium 7.3 mg/dL (8.4-10.2) L 09/05/24 05:30 Phosphorus 10.6 mg/dL (2.5-4.5) H* 09/04/24 17:04 Magnesium 2.7 mg/dL (1.6-2.3) H 09/04/24 17:04 09/05/24 05:30 09/05/24 05:30 Assessment and Plan Assessment: 1. Acute kidney injury ATN from hypotension, underlying infection and rhabdomyolysis, initially nonoliguric currently oliguric secondary to worsening hypotension. Maintained on vasopressors now and receiving IV fluid boluses. No acute indication for hemodialysis today. UA is suggestive of UTI 2. Anion gap metabolic acidosis secondary to diabetic ketoacidosis and acute kidney injury, status post bicarb drip 3. Rhabdo my lysis with CK at 9320 4. Acute hypoxic respiratory failure 5. Hyperkalemia associated with acute kidney injury, metabolic acidosis and rhabdomyolysis Plan: DC bicarb drip Continue with IV fluids Repeat labs later today Check ultrasound of the kidneys Continue with antibiotics and pressor support Continue to monitor on a daily basis for need for renal replacement therapy.
[2024-09-05] MEDS: IPRATROPIUM-ALBUTEROL 3 ML NEB INHALATION SCH (12:30)
[2024-09-05 13:01] LABS: Glucose,Whole Blood 232 mg/dL (70-110)
[2024-09-05 13:59] LABS: Glucose,Whole Blood 189 mg/dL (70-110)
--- NOTE | 2024-09-05 14:10 | P.HPIM ---
History of Present Illness H&P Date: 09/05/24 This is a 64-year-old male with medical history significant for hyperlipidemia, diabetes mellitus, heart failure, chronic kidney disease, hypertension. Medical history is obtained from the patient's sister who is at the bedside. Patient is currently on the mechanical ventilator. Patient presented to the hospital yesterday afternoon after being found on the ground responsive by family. Sister states that she goes over to the patient's house every Tuesday to set up his medications for the week. Patient had another family member in the room states that they had spoken over the phone on . When patient's sister arrived to the house on Tuesday after not hearing from him for a few days she found him on the ground unresponsive and states that none of his medications from his pack were taken on Tuesday or Tuesday. This brought into the hospital by ambulance. He is currently intubated and sedated on the mechanical ventilator. Chest x-ray reveals mild linear infiltrate within the mid left lung may be atelectasis or early pneumonia. EKG reveals normal sinus rhythm heart r ate of 88 EKG reads as possible right ventricular hypertrophy with inferior VA probably old and an anterior lateral VA of indeterminate age. Brain CT and cervical spine CT revealed no acute changes no evidence for any fracture or stroke. Initial blood work reveals a white blood cell count of 17.3, sodium level of 136 potassium of 5.7, BUN of 137, creatinine of 8.82, blood glucose of 578, lactic acid of 2.6, Phos level 10.6, magnesium of 2.7, AST of 150 ALT of 71, creat kinase of 7555, troponin level is 0.043, proBNP of 4510. Urinalysis is completed with brown turbid urine with greater than 182 RBCs greater than 182 WBCs with many bacteria. His urine drug toxicology is negative serum alcohol is less than 10 he is acetone positive. His viral panel and Legionella screenings are all negative. Was admitted to the hospital intensive care unit secondary to the diabetic ketoacidosis and rhabdomyolysis. There is concern for underlying infection or sepsis he is started empirically on IV azithromycin and IV ceftriaxone. Patient was fluid resuscitated with 2 L of normal saline given in the ER and an infusion of normal saline at 130 mL/h. He did have a repeat chest x-ray completed this morning which is concerning for congestive heart failure and was given a dose of IV Lasix. 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 Echocardiogram has been ordered and is currently pending at this time. REVIEW OF SYSTEMS: Unable to complete review of systems at this time patient is currently intubated and sedated. PHYSICAL EXAMINATION: GENERAL: The patient is sedated and on the mechanical ventilator, not in any acute distress. Well developed, well nourished. HEENT: Pupils are round and equally reacting to light. EOMI. No scleral icterus. No conjunctival pallor. Normocephalic, atraumatic. No pharyngeal erythema. No thyromegaly. CARDIOVASCULAR: S1 and S2 present. No murmurs, rubs, or gallops. PULMONARY: Chest is clear to auscultation, no wheezing or crackles. ABDOMEN: Soft, nontender, nondistended, normoactive bowel sounds. No palpable organomegaly. Bruise on the left upper abdomen. MUSCULOSKELETAL: No joint swelling or deformity. EXTREMITIES: No cyanosis, clubbing, or pedal edema. NEUROLOGICAL: Gross neurological examination did not reveal any focal deficits. SKIN: No rashes. Assessment and plan Altered mental status secondary to acute metabolic encephalopathy Sepsis with fever and lactic acidosis Acute hypoxemic respiratory failure requiring mechanical intubation Diabetic ketoacidosis Anion gap metabolic acidosis Acute kidney injury acute tubular necrosis secondary to sepsis Acute rhabdomyolysis secondary to prolonged downtime with creatinine as of 7555 on admission Aute on chronic diastolic heart failure Chronic Kidney disease Troponin elevation likely type II VA although need to rule out NSTEMI Transaminitis Abnormal urinalysis could be due to dehydration and acute tubular necrosis unable to rule out an acute urinary tract infection at this time as his urinalysis is significantly abnormal. Leukocytosis Diabetes mellitus type 2 uncontrolled Hyperlipidemia Hypertension maintained on lisinopril which is currently being held secondary to the renal dysfunction GI prophylaxis DVT prophylaxis Full Code Plan Nephrology consultation Hold nephrotoxic home medications including metformin, lisinopril Hold Farxiga due to the renal dysfunction Echocardiogram ordered and pending Trend troponin levels and consult cardiology Fluids have been discontinued due to the concern for pulmonary edema on the chest xray IV lasix x 1 given by nephrology Blood culture and urine cultures are taken and pending Continue IV cefepime and ID has been consulted for evaluation Repeat blood work in the AM The impression and plan of care has been dictated by Kristin Huynh, Nurse Practitioner as directed. Dr. Iwona MD I have performed a history and physical examination and medical decision making of this patient, discussed the same with the dictator, and agree with the dictators assessment and plan as written, documented as a scribe. Based on total visit time, I have performed more than 50% of this visit. Past Medical History Past Medical History: Diabetes Mellitus, Hyperlipidemia History of Any Multi-Drug Resistant Organisms: None Reported Past Surgical History: Orthopedic Surgery, Tonsillectomy Additional Past Surgical History / Comment(s): tip of rt middle finger removed from work injury Past Anesthesia/Blood Transfusion Reactions: No Reported Reaction Past Psychological History: No Psychological Hx Reported Smoking Status: Never smoker Past Alcohol Use History: Unable to Obtain Past Drug Use History: Unable to Obtain Medications and Allergies Home Medications Medication Instructions Recorded Confirmed Type Lovastatin [Mevacor] 40 mg PO W/SUPPER 05/01/18 09/04/24 History Ferrous Sulfate [Iron (65 MG 325 mg PO DAILY 06/17/22 09/04/24 History Elemental)] Furosemide [Lasix] 40 mg PO BID@0900,1600 08/05/22 09/04/24 History hydrALAZINE HCL [Apresoline] 100 mg PO TID 08/05/22 09/04/24 History Isosorbide Mononitrate ER [Imdur] 30 mg PO DAILY 12/10/22 09/04/24 History allopurinoL [Zyloprim] 100 mg PO BID 12/10/22 09/04/24 History Famotidine [Pepcid] 20 mg PO HS PRN 05/06/23 09/04/24 History Glimepiride [Amaryl] 8 mg PO W/BRKFST 05/06/23 09/04/24 History carvediloL [Coreg] 25 mg PO BID-W/MEALS 05/06/23 09/04/24 History metFORMIN HCL ER [Glucophage XR] 500 mg PO DAILY 05/06/23 09/04/24 History Dulaglutide [Trulicity] 3 mg SQ Q7D 04/25/24 09/04/24 History amLODIPine [Norvasc] 5 mg PO DAILY 04/25/24 09/04/24 History lisinopriL [Zestril] 2.5 mg PO DAILY 04/25/24 09/04/24 History Dapagliflozin Propanediol [Farxiga] 5 mg PO DAILY 09/04/24 09/04/24 History Tamsulosin [Flomax] 0.4 mg PO HS 09/04/24 09/04/24 History calcitrioL [Rocaltrol] 0.25 mcg PO Q7D 09/04/24 09/04/24 History Allergies Allergy/AdvReac Type Severity Reaction Status Date / Time No Known Allergies Allergy Verified 09/04/24 19:37 Physical Exam Vitals: Vital Signs Temp Pulse Resp BP Pulse Ox FiO2 09/05/24 09:12 92 09/05/24 09:01 90 40 09/05/24 07:00 82 41 H 105/44 97 09/05/24 06:00 95 46 H 109/64 99 09/05/24 05:00 47 H 96/78 99 09/05/24 04:13 60 09/05/24 04:00 100.2 F H 48 H 109/69 100 100 09/05/24 03:00 96 45 H 123/68 09/05/24 02:00 51 H 114/85 09/05/24 01:00 96 49 H 128/112 98 09/05/24 00:47 60 09/05/24 00:00 99.3 F 47 H 117/73 99 100 09/04/24 23:04 44 H 115/85 100 09/04/24 23:00 45 H 115/85 100 09/04/24 22:20 100 09/04/24 22:19 100 09/04/24 22:10 39 H 115/85 95 09/04/24 21:00 97.6 F 47 H 115/85 94 L 09/04/24 20:40 97.5 F L 64 26 H 120/76 95 09/04/24 20:00 78 26 H 119/78 95 09/04/24 18:49 70 09/04/24 18:44 76 09/04/24 17:06 86 24 88/68 91 L 09/04/24 16:41 88 24 82/62 91 L 09/04/24 16:39 97.7 F 89 24 80/60 91 L Intake and Output 09/04/24 09/05/24 09/05/24 22:59 06:59 14:59 Intake Total 460 994.683 164.500 Output Total 85 190 10 Balance 375 804.683 154.500 Intake: IV 460 900 100 Dextrose 5% in Water 1, 200 800 100 000 ml @ 130 mls/hr IV . Q8H51M MONI with Sodium Bicarb (1 Meq/ml) 150 ml Rx#:[id number] Sodium Chloride 0.9% 1, 260 000 ml @ 130 mls/hr IV . Q7H42M STA Rx#:[id number] metroNIDAZOLE-NS PMX 500 100 mg In Saline 1 100ml.bag @ 100 mls/hr IVPB Q8HR [facility]I Rx#:[id number] Intake, IV Titration 94.683 64.500 Amount Insulin Regular 100 unit 94.683 64.500 In Sodium Chloride 0.9% 100 ml @ Titrate IV .Q0M MONI Rx#:[id number] Output: Urine 85 190 10 Other: Voiding Method Indwelling Catheter Weight 68.039 kg 75 kg Results CBC & Chem 7: 09/05/24 05:30 09/05/24 05:30 Labs: Abnormal Lab Results - Last 24 Hours (Table) 09/04/24 09/04/24 09/04/24 Range/Units 16:56 17:04 17:04 WBC 17.3 H (3.8-10.6) k/uL RBC (4.30-5.90) m/uL Hgb (13.0-17.5) gm/dL Hct (39.0-53.0) % Neutrophils # 16.0 H (1.3-7.7) k/uL Lymphocytes # 0.5 L (1.0-4.8) k/uL ABG pH (7.35-7.45) ABG pCO2 (35-45) mmHg ABG pO2 (83-108) mmHg ABG Total CO2 (19-24) mmol/L ABG O2 Saturation (94-97) % VBG pH (7.31-7.41) VBG HCO3 (24-28) mmol/L Hemoglobin (13.0-17.5) gm/dL Sodium 136 L (137-145) mmol/L Potassium 5.7 H (3.5-5.1) mmol/L Chloride 95 L (98-107) mmol/L Carbon Dioxide 14 L (22-30) mmol/L BUN 137 H* (9-20) mg/dL Creatinine 8.82 H* (0.66-1.25) mg/dL Glucose 578 H* (74-99) mg/dL POC Glucose (mg/dL) 557 H* (70-110) mg/dL Plasma Lactic Acid Portillo (0.7-2.0) mmol/L Calcium 8.2 L (8.4-10.2) mg/dL Phosphorus 10.6 H* (2.5-4.5) mg/dL Magnesium 2.7 H (1.6-2.3) mg/dL AST 150 H (17-59) U/L ALT 71 H (4-49) U/L Creatine Kinase 7555 H* (55-170) U/L Troponin I (0.000-0.034) ng/mL Urine RBC (0-5) /hpf Urine WBC (0-5) /hpf Urine WBC Clumps (None) /hpf Urine Bacteria (None) /hpf 09/04/24 09/04/24 09/04/24 Range/Units 17:04 17:04 18:20 WBC (3.8-10.6) k/uL RBC (4.30-5.90) m/uL Hgb (13.0-17.5) gm/dL Hct (39.0-53.0) % Neutrophils # (1.3-7.7) k/uL Lymphocytes # (1.0-4.8) k/uL ABG pH (7.35-7.45) ABG pCO2 (35-45) mmHg ABG pO2 (83-108) mmHg ABG Total CO2 (19-24) mmol/L ABG O2 Saturation (94-97) % VBG pH 7.30 L (7.31-7.41) VBG HCO3 18 L (24-28) mmol/L Hemoglobin (13.0-17.5) gm/dL Sodium (137-145) mmol/L Potassium (3.5-5.1) mmol/L Chloride (98-107) mmol/L Carbon Dioxide (22-30) mmol/L BUN (9-20) mg/dL Creatinine (0.66-1.25) mg/dL Glucose (74-99) mg/dL POC Glucose (mg/dL) (70-110) mg/dL Plasma Lactic Acid Portillo 2.6 H* (0.7-2.0) mmol/L Calcium (8.4-10.2) mg/dL Phosphorus (2.5-4.5) mg/dL Magnesium (1.6-2.3) mg/dL AST (17-59) U/L ALT (4-49) U/L Creatine Kinase (55-170) U/L Troponin I 0.043 H* (0.000-0.034) ng/mL Urine RBC (0-5) /hpf Urine WBC (0-5) /hpf Urine WBC Clumps (None) /hpf Urine Bacteria (None) /hpf 09/04/24 09/04/24 09/04/24 Range/Units 18:24 21:00 22:11 WBC (3.8-10.6) k/uL RBC (4.30-5.90) m/uL Hgb (13.0-17.5) gm/dL Hct (39.0-53.0) % Neutrophils # (1.3-7.7) k/uL Lymphocytes # (1.0-4.8) k/uL ABG pH (7.35-7.45) ABG pCO2 (35-45) mmHg ABG pO2 (83-108) mmHg ABG Total CO2 (19-24) mmol/L ABG O2 Saturation (94-97) % VBG pH (7.31-7.41) VBG HCO3 (24-28) mmol/L Hemoglobin (13.0-17.5) gm/dL Sodium (137-145) mmol/L Potassium (3.5-5.1) mmol/L Chloride (98-107) mmol/L Carbon Dioxide (22-30) mmol/L BUN (9-20) mg/dL Creatinine (0.66-1.25) mg/dL Glucose (74-99) mg/dL POC Glucose (mg/dL) 538 H* 549 H* (70-110) mg/dL Plasma Lactic Acid Portillo (0.7-2.0) mmol/L Calcium (8.4-10.2) mg/dL Phosphorus (2.5-4.5) mg/dL Magnesium (1.6-2.3) mg/dL AST (17-59) U/L ALT (4-49) U/L Creatine Kinase (55-170) U/L Troponin I (0.000-0.034) ng/mL Urine RBC >182 H (0-5) /hpf Urine WBC >182 H (0-5) /hpf Urine WBC Clumps Many H (None) /hpf Urine Bacteria Many H (None) /hpf 09/04/24 09/04/24 09/05/24 Range/Units 23:17 23:22 00:18 WBC (3.8-10.6) k/uL RBC (4.30-5.90) m/uL Hgb (13.0-17.5) gm/dL Hct (39.0-53.0) % Neutrophils # (1.3-7.7) k/uL Lymphocytes # (1.0-4.8) k/uL ABG pH (7.35-7.45) ABG pCO2 (35-45) mmHg ABG pO2 (83-108) mmHg ABG Total CO2 (19-24) mmol/L ABG O2 Saturation (94-97) % VBG pH (7.31-7.41) VBG HCO3 (24-28) mmol/L Hemoglobin (13.0-17.5) gm/dL Sodium (137-145) mmol/L Potassium (3.5-5.1) mmol/L Chloride (98-107) mmol/L Carbon Dioxide 16 L (22-30) mmol/L BUN 141 H* (9-20) mg/dL Creatinine 7.78 H* (0.66-1.25) mg/dL Glucose 540 H* (74-99) mg/dL POC Glucose (mg/dL) 557 H* 517 H* (70-110) mg/dL Plasma Lactic Acid Portillo (0.7-2.0) mmol/L Calcium 7.0 L (8.4-10.2) mg/dL Phosphorus (2.5-4.5) mg/dL Magnesium (1.6-2.3) mg/dL AST (17-59) U/L ALT (4-49) U/L Creatine Kinase (55-170) U/L Troponin I (0.000-0.034) ng/mL Urine RBC (0-5) /hpf Urine WBC (0-5) /hpf Urine WBC Clumps (None) /hpf Urine Bacteria (None) /hpf 09/05/24 09/05/24 09/05/24 Range/Units 01:21 02:11 03:06 WBC (3.8-10.6) k/uL RBC (4.30-5.90) m/uL Hgb (13.0-17.5) gm/dL Hct (39.0-53.0) % Neutrophils # (1.3-7.7) k/uL Lymphocytes # (1.0-4.8) k/uL ABG pH (7.35-7.45) ABG pCO2 (35-45) mmHg ABG pO2 (83-108) mmHg ABG Total CO2 (19-24) mmol/L ABG O2 Saturation (94-97) % VBG pH (7.31-7.41) VBG HCO3 (24-28) mmol/L Hemoglobin (13.0-17.5) gm/dL Sodium (137-145) mmol/L Potassium (3.5-5.1) mmol/L Chloride (98-107) mmol/L Carbon Dioxide (22-30) mmol/L BUN (9-20) mg/dL Creatinine (0.66-1.25) mg/dL Glucose (74-99) mg/dL POC Glucose (mg/dL) 477 H 488 H 367 H (70-110) mg/dL Plasma Lactic Acid Portillo (0.7-2.0) mmol/L Calcium (8.4-10.2) mg/dL Phosphorus (2.5-4.5) mg/dL Magnesium (1.6-2.3) mg/dL AST (17-59) U/L ALT (4-49) U/L Creatine Kinase (55-170) U/L Troponin I (0.000-0.034) ng/mL Urine RBC (0-5) /hpf Urine WBC (0-5) /hpf Urine WBC Clumps (None) /hpf Urine Bacteria (None) /hpf 09/05/24 09/05/24 09/05/24 Range/Units 04:05 04:54 05:30 WBC (3.8-10.6) k/uL RBC (4.30-5.90) m/uL Hgb (13.0-17.5) gm/dL Hct (39.0-53.0) % Neutrophils # (1.3-7.7) k/uL Lymphocytes # (1.0-4.8) k/uL ABG pH (7.35-7.45) ABG pCO2 (35-45) mmHg ABG pO2 (83-108) mmHg ABG Total CO2 (19-24) mmol/L ABG O2 Saturation (94-97) % VBG pH (7.31-7.41) VBG HCO3 (24-28) mmol/L Hemoglobin (13.0-17.5) gm/dL Sodium (137-145) mmol/L Potassium (3.5-5.1) mmol/L Chloride (98-107) mmol/L Carbon Dioxide (22-30) mmol/L BUN 147 H* (9-20) mg/dL Creatinine 7.44 H* (0.66-1.25) mg/dL Glucose 190 H (74-99) mg/dL POC Glucose (mg/dL) 276 H 254 H (70-110) mg/dL Plasma Lactic Acid Portillo (0.7-2.0) mmol/L Calcium 7.3 L (8.4-10.2) mg/dL Phosphorus (2.5-4.5) mg/dL Magnesium (1.6-2.3) mg/dL AST (17-59) U/L ALT (4-49) U/L Creatine Kinase 9320 H* (55-170) U/L Troponin I (0.000-0.034) ng/mL Urine RBC (0-5) /hpf Urine WBC (0-5) /hpf Urine WBC Clumps (None) /hpf Urine Bacteria (None) /hpf 09/05/24 09/05/24 09/05/24 Range/Units 05:30 06:15 06:20 WBC 14.8 H (3.8-10.6) k/uL RBC 4.20 L (4.30-5.90) m/uL Hgb 12.3 L (13.0-17.5) gm/dL Hct 37.8 L (39.0-53.0) % Neutrophils # 14.1 H (1.3-7.7) k/uL Lymphocytes # 0.2 L (1.0-4.8) k/uL ABG pH 7.56 H* (7.35-7.45) ABG pCO2 28 L (35-45) mmHg ABG pO2 178 H (83-108) mmHg ABG Total CO2 25 H (19-24) mmol/L ABG O2 Saturation 100.0 H (94-97) % VBG pH (7.31-7.41) VBG HCO3 (24-28) mmol/L Hemoglobin 12.2 L (13.0-17.5) gm/dL Sodium (137-145) mmol/L Potassium (3.5-5.1) mmol/L Chloride (98-107) mmol/L Carbon Dioxide (22-30) mmol/L BUN (9-20) mg/dL Creatinine (0.66-1.25) mg/dL Glucose (74-99) mg/dL POC Glucose (mg/dL) 222 H (70-110) mg/dL Plasma Lactic Acid Portillo (0.7-2.0) mmol/L Calcium (8.4-10.2) mg/dL Phosphorus (2.5-4.5) mg/dL Magnesium (1.6-2.3) mg/dL AST (17-59) U/L ALT (4-49) U/L Creatine Kinase (55-170) U/L Troponin I (0.000-0.034) ng/mL Urine RBC (0-5) /hpf Urine WBC (0-5) /hpf Urine WBC Clumps (None) /hpf Urine Bacteria (None) /hpf 09/05/24 Range/Units 07:06 WBC (3.8-10.6) k/uL RBC (4.30-5.90) m/uL Hgb (13.0-17.5) gm/dL Hct (39.0-53.0) % Neutrophils # (1.3-7.7) k/uL Lymphocytes # (1.0-4.8) k/uL ABG pH (7.35-7.45) ABG pCO2 (35-45) mmHg ABG pO2 (83-108) mmHg ABG Total CO2 (19-24) mmol/L ABG O2 Saturation (94-97) % VBG pH (7.31-7.41) VBG HCO3 (24-28) mmol/L Hemoglobin (13.0-17.5) gm/dL Sodium (137-145) mmol/L Potassium (3.5-5.1) mmol/L Chloride (98-107) mmol/L Carbon Dioxide (22-30) mmol/L BUN (9-20) mg/dL Creatinine (0.66-1.25) mg/dL Glucose (74-99) mg/dL POC Glucose (mg/dL) 140 H (70-110) mg/dL Plasma Lactic Acid Portillo (0.7-2.0) mmol/L Calcium (8.4-10.2) mg/dL Phosphorus (2.5-4.5) mg/dL Magnesium (1.6-2.3) mg/dL AST (17-59) U/L ALT (4-49) U/L Creatine Kinase (55-170) U/L Troponin I (0.000-0.034) ng/mL Urine RBC (0-5) /hpf Urine WBC (0-5) /hpf Urine WBC Clumps (None) /hpf Urine Bacteria (None) /hpf Assessment and Plan Time with Patient: Greater than 30
[2024-09-05 15:08] LABS: African American GFR (CKD) 8 (>60 ml/min/1.73 sqM); Anion Gap 13 mmol/L; Calcium 6.7 mg/dL (8.4-10.2); Carbon Dioxide 26 mmol/L (22-30); Chloride 104 mmol/L (98-107); Glucose 163 mg/dL (74-99); Non-African American GFR(CKD) 7 (>60 ml/min/1.73 sqM); Potassium 3.1 mmol/L (3.5-5.1); Sodium 143 mmol/L (137-145)
[2024-09-05 15:16] LABS: Blood Urea Nitrogen 139 mg/dL (9-20)
--- NOTE | 2024-09-05 15:24 | US ---
EXAMINATION TYPE: US kidneys/renal and bladder DATE OF EXAM: 09/05/2024 COMPARISON: Renal ultrasound 04/28/2024, MR kidney 08/01/2023 CLINICAL INDICATION: Male, 64 years old with history of Tegan; TEGAN TECHNIQUE: Grayscale imaging of the bilateral kidneys and urinary bladder: FINDINGS: EXAM MEASUREMENTS: Right Kidney: 11.7 x 5.6 x 5.1 cm Left Kidney: 10.5 x 6.0 x 4.1 cm Right Kidney: No hydronephrosis or masses seen Left Kidney: Limited due to bowel gas. Bladder: Cather in. Bilateral Jets seen: no There is no evidence for hydronephrosis at this point in time. No nephrolithiasis is seen. Previousl y seen right renal masses not well seen on today's exam. No left renal mass identified. The urinary b ladder is poorly visualized due to decompression with Santiago catheter. Echogenic appearance of the vis ualized liver. IMPRESSION: 1. No hydronephrosis or nephrolithiasis. 2. Previously seen right renal mass is not well-visualized on today's exam. 3. Hepatic steatosis. [facility], , 09/05/2024 3:21 PM
[2024-09-05] MEDS: CEFEPIME 1 GM in SODIUM CHLORIDE 0.9% 50 ML IVPB SCH (15:57)
[2024-09-05 15:58] LABS: Glucose,Whole Blood 159 mg/dL (70-110)
[2024-09-05 17:05] LABS: Glucose,Whole Blood 83 mg/dL (70-110)
[2024-09-05] MEDS ORDERED: AZITHROMYCIN 500 MG in SODIUM CHLORIDE 0.9% 250 ML IVPB SCH (18:00)
[2024-09-05 18:07] LABS: Glucose,Whole Blood 45 mg/dL (70-110)
[2024-09-05] MEDS: DEXTROSE 50% SYRINGE 50 ML IVP PRN (18:14)
[2024-09-05 18:23] LABS: Glucose,Whole Blood 124 mg/dL (70-110)
[2024-09-05 19:06] LABS: Glucose,Whole Blood 119 mg/dL (70-110)
[2024-09-05] MEDS ORDERED: Potassium Replacement Protocol 1 EACH MISC MISCELLANE PRN (19:08)
[2024-09-05] MEDS ORDERED: POTASSIUM CHLORIDE 20 MEQ in WATER FOR INJECTION 1 100ML.BAG IVPB SCH (19:15)
[2024-09-05 20:13] LABS: Glucose,Whole Blood 144 mg/dL (70-110)
[2024-09-05] MEDS: TAMSULOSIN 0.4 MG CAP.ER.24H PO SCH (20:46)
[2024-09-05 21:06] LABS: Glucose,Whole Blood 163 mg/dL (70-110)
--- NOTE | 2024-09-05 21:43 | XR ---
EXAMINATION TYPE: XR chest 1V DATE OF EXAM: 09/05/2024 9:31 PM COMPARISON: None. CLINICAL INDICATION: Male, 64 years old with history of NG placement, TECHNIQUE: XR chest 1V view(s) obtained. FINDINGS: The heart size is normal. The pulmonary vasculature is normal. Appears to be some air bronchograms and infiltrate in the right lower lobe correlate for pneumonia an d atelectasis. Endotracheal tube is present with the tip 4.5 cm above the nicol. Right costophrenic angle is excluded from [id number]. Is a gastric tube transverse the thorax with tip in the abdomen. Left central venous catheter tip is within the distal superior vena cava region IMPRESSION: 1. Clinical correlation recommended for lobe infiltrate. [facility], , 09/05/2024 9:41 PM
--- NOTE | 2024-09-05 21:49 | P.CONS ---
History of Present Illness - Reason for Consult Consult date: 09/05/24 Fever sepsis Requesting physician: Kristin Huynh - Chief Complaint Found on the floor unresponsive x 1 day - History of Present Illness Patient is a 64-year-old male with a past medical history significant for diabetes mellitus hyperlipidemia, chronic kidney disease patient has been brought to the hospital after the patient was found on the ground for unknown amount of time last seen well 2 weeks prior by his sister on arrival to the ER patient was afebrile however he did spike a fever of 102.2 F this morning patient was not tachycardic but hypotensive requiring pressor support and got intubated currently in the ICU patient did have elevated white to 17.3 he did have elevated BUN and creatinine potassium was 4.7 glucose was elevated did have elevated CK as well as troponin urine has been turbid with more than 1-2 WBC urine drug screen was negative influenza RSV COVID testing is negative patient did have a chest x-ray mild linear infiltrate within the mid lung may be atelectasis or early pneumonia patient be started on Rocephin and Zithromax infectious disease was consulted for further management of antibiotic therapy most information has been obtained from review the chart talking to the family as the patient cannot provide any history Review of Systems Positive points has been mentioned in HPI complete review could not be obtained because patient intubated on the vent Past Medical History Past Medical History: Diabetes Mellitus, Hyperlipidemia History of Any Multi-Drug Resistant Organisms: None Reported Past Surgical History: Orthopedic Surgery, Tonsillectomy Additional Past Surgical History / Comment(s): tip of rt middle finger removed from work injury Past Anesthesia/Blood Transfusion Reactions: No Reported Reaction Past Psychological History: No Psychological Hx Reported Smoking Status: Never smoker Past Alcohol Use History: Unable to Obtain Past Drug Use History: Unable to Obtain Medications and Allergies Home Medications Medication Instructions Recorded Confirmed Type Lovastatin [Mevacor] 40 mg PO W/SUPPER 05/01/18 09/04/24 History Ferrous Sulfate [Iron (65 MG 325 mg PO DAILY 06/17/22 09/04/24 History Elemental)] Furosemide [Lasix] 40 mg PO BID@0900,1600 08/05/22 09/04/24 History hydrALAZINE HCL [Apresoline] 100 mg PO TID 08/05/22 09/04/24 History Isosorbide Mononitrate ER [Imdur] 30 mg PO DAILY 12/10/22 09/04/24 History allopurinoL [Zyloprim] 100 mg PO BID 12/10/22 09/04/24 History Famotidine [Pepcid] 20 mg PO HS PRN 05/06/23 09/04/24 History Glimepiride [Amaryl] 8 mg PO W/BRKFST 05/06/23 09/04/24 History carvediloL [Coreg] 25 mg PO BID-W/MEALS 05/06/23 09/04/24 History metFORMIN HCL ER [Glucophage XR] 500 mg PO DAILY 05/06/23 09/04/24 History Dulaglutide [Trulicity] 3 mg SQ Q7D 04/25/24 09/04/24 History amLODIPine [Norvasc] 5 mg PO DAILY 04/25/24 09/04/24 History lisinopriL [Zestril] 2.5 mg PO DAILY 04/25/24 09/04/24 History Dapagliflozin Propanediol [Farxiga] 5 mg PO DAILY 09/04/24 09/04/24 History Tamsulosin [Flomax] 0.4 mg PO HS 09/04/24 09/04/24 History calcitrioL [Rocaltrol] 0.25 mcg PO Q7D 09/04/24 09/04/24 History Allergies Allergy/AdvReac Type Severity Reaction Status Date / Time No Known Allergies Allergy Verified 09/04/24 19:37 Physical Exam Vitals: Vital Signs Temp Pulse Resp BP Pulse Ox FiO2 09/05/24 09:12 92 09/05/24 09:01 90 40 09/05/24 07:00 82 41 H 105/44 97 09/05/24 06:00 95 46 H 109/64 99 09/05/24 05:00 47 H 96/78 99 09/05/24 04:13 60 09/05/24 04:00 100.2 F H 48 H 109/69 100 100 09/05/24 03:00 96 45 H 123/68 09/05/24 02:00 51 H 114/85 09/05/24 01:00 96 49 H 128/112 98 09/05/24 00:47 60 09/05/24 00:00 99.3 F 47 H 117/73 99 100 09/04/24 23:04 44 H 115/85 100 09/04/24 23:00 45 H 115/85 100 09/04/24 22:20 100 09/04/24 22:19 100 09/04/24 22:10 39 H 115/85 95 09/04/24 21:00 97.6 F 47 H 115/85 94 L 09/04/24 20:40 97.5 F L 64 26 H 120/76 95 09/04/24 20:00 78 26 H 119/78 95 09/04/24 18:49 70 09/04/24 18:44 76 09/04/24 17:06 86 24 88/68 91 L 09/04/24 16:41 88 24 82/62 91 L 09/04/24 16:39 97.7 F 89 24 80/60 91 L Intake and Output 09/04/24 09/05/24 09/05/24 22:59 06:59 14:59 Intake Total 460 994.683 164.500 Output Total 85 190 10 Balance 375 804.683 154.500 Intake: IV 460 900 100 Dextrose 5% in Water 1, 200 800 100 000 ml @ 130 mls/hr IV . Q8H51M MONI with Sodium Bicarb (1 Meq/ml) 150 ml Rx#:[id number] Sodium Chloride 0.9% 1, 260 000 ml @ 130 mls/hr IV . Q7H42M STA Rx#:[id number] metroNIDAZOLE-NS PMX 500 100 mg In Saline 1 100ml.bag @ 100 mls/hr IVPB Q8HR MONI Rx#:[id number] Intake, IV Titration 94.683 64.500 Amount Insulin Regular 100 unit 94.683 64.500 In Sodium Chloride 0.9% 100 ml @ Titrate IV .Q0M [facility] Rx#:[id number] Output: Urine 85 190 10 Other: Voiding Method Indwelling Catheter Weight 68.039 kg 75 kg GENERAL DESCRIPTION: Elderly male intubated on the vent HEENT: Shows Pallor , no scleral icterus. Oral mucous membrane is dry. NECK: Trachea central, no thyromegaly. LUNGS: Unlabored breathing. Decreased breath sounds at the base HEART: S1, S2, regular rate and rhythm. No loud murmur ABDOMEN: Soft, no tenderness , guarding or rigidity, no organomegaly EXTREMITIES: No edema of feet. SKIN: No rash, no masses palpable. NEUROLOGICAL: The patient is sedated on the vent Results CBC & Chem 7: 09/05/24 05:30 09/05/24 14:24 Labs: Abnormal Lab Results - Last 24 Hours (Table) 09/04/24 09/04/24 09/04/24 Range/Units 16:56 17:04 17:04 WBC 17.3 H (3.8-10.6) k/uL RBC (4.30-5.90) m/uL Hgb (13.0-17.5) gm/dL Hct (39.0-53.0) % Neutrophils # 16.0 H (1.3-7.7) k/uL Lymphocytes # 0.5 L (1.0-4.8) k/uL ABG pH (7.35-7.45) ABG pCO2 (35-45) mmHg ABG pO2 (83-108) mmHg ABG Total CO2 (19-24) mmol/L ABG O2 Saturation (94-97) % VBG pH (7.31-7.41) VBG HCO3 (24-28) mmol/L Hemoglobin (13.0-17.5) gm/dL Sodium 136 L (137-145) mmol/L Potassium 5.7 H (3.5-5.1) mmol/L Chloride 95 L (98-107) mmol/L Carbon Dioxide 14 L (22-30) mmol/L BUN 137 H* (9-20) mg/dL Creatinine 8.82 H* (0.66-1.25) mg/dL Glucose 578 H* (74-99) mg/dL POC Glucose (mg/dL) 557 H* (70-110) mg/dL Plasma Lactic Acid Portillo (0.7-2.0) mmol/L Calcium 8.2 L (8.4-10.2) mg/dL Phosphorus 10.6 H* (2.5-4.5) mg/dL Magnesium 2.7 H (1.6-2.3) mg/dL AST 150 H (17-59) U/L ALT 71 H (4-49) U/L Creatine Kinase 7555 H* (55-170) U/L Troponin I (0.000-0.034) ng/mL Urine RBC (0-5) /hpf Urine WBC (0-5) /hpf Urine WBC Clumps (None) /hpf Urine Bacteria (None) /hpf 09/04/24 09/04/24 09/04/24 Range/Units 17:04 17:04 18:20 WBC (3.8-10.6) k/uL RBC (4.30-5.90) m/uL Hgb (13.0-17.5) gm/dL Hct (39.0-53.0) % Neutrophils # (1.3-7.7) k/uL Lymphocytes # (1.0-4.8) k/uL ABG pH (7.35-7.45) ABG pCO2 (35-45) mmHg ABG pO2 (83-108) mmHg ABG Total CO2 (19-24) mmol/L ABG O2 Saturation (94-97) % VBG pH 7.30 L (7.31-7.41) VBG HCO3 18 L (24-28) mmol/L Hemoglobin (13.0-17.5) gm/dL Sodium (137-145) mmol/L Potassium (3.5-5.1) mmol/L Chloride (98-107) mmol/L Carbon Dioxide (22-30) mmol/L BUN (9-20) mg/dL Creatinine (0.66-1.25) mg/dL Glucose (74-99) mg/dL POC Glucose (mg/dL) (70-110) mg/dL Plasma Lactic Acid Portillo 2.6 H* (0.7-2.0) mmol/L Calcium (8.4-10.2) mg/dL Phosphorus (2.5-4.5) mg/dL Magnesium (1.6-2.3) mg/dL AST (17-59) U/L ALT (4-49) U/L Creatine Kinase (55-170) U/L Troponin I 0.043 H* (0.000-0.034) ng/mL Urine RBC (0-5) /hpf Urine WBC (0-5) /hpf Urine WBC Clumps (None) /hpf Urine Bacteria (None) /hpf 09/04/24 09/04/24 09/04/24 Range/Units 18:24 21:00 22:11 WBC (3.8-10.6) k/uL RBC (4.30-5.90) m/uL Hgb (13.0-17.5) gm/dL Hct (39.0-53.0) % Neutrophils # (1.3-7.7) k/uL Lymphocytes # (1.0-4.8) k/uL ABG pH (7.35-7.45) ABG pCO2 (35-45) mmHg ABG pO2 (83-108) mmHg ABG Total CO2 (19-24) mmol/L ABG O2 Saturation (94-97) % VBG pH (7.31-7.41) VBG HCO3 (24-28) mmol/L Hemoglobin (13.0-17.5) gm/dL Sodium (137-145) mmol/L Potassium (3.5-5.1) mmol/L Chloride (98-107) mmol/L Carbon Dioxide (22-30) mmol/L BUN (9-20) mg/dL Creatinine (0.66-1.25) mg/dL Glucose (74-99) mg/dL POC Glucose (mg/dL) 538 H* 549 H* (70-110) mg/dL Plasma Lactic Acid Portillo (0.7-2.0) mmol/L Calcium (8.4-10.2) mg/dL Phosphorus (2.5-4.5) mg/dL Magnesium (1.6-2.3) mg/dL AST (17-59) U/L ALT (4-49) U/L Creatine Kinase (55-170) U/L Troponin I (0.000-0.034) ng/mL Urine RBC >182 H (0-5) /hpf Urine WBC >182 H (0-5) /hpf Urine WBC Clumps Many H (None) /hpf Urine Bacteria Many H (None) /hpf 09/04/24 09/04/24 09/05/24 Range/Units 23:17 23:22 00:18 WBC (3.8-10.6) k/uL RBC (4.30-5.90) m/uL Hgb (13.0-17.5) gm/dL Hct (39.0-53.0) % Neutrophils # (1.3-7.7) k/uL Lymphocytes # (1.0-4.8) k/uL ABG pH (7.35-7.45) ABG pCO2 (35-45) mmHg ABG pO2 (83-108) mmHg ABG Total CO2 (19-24) mmol/L ABG O2 Saturation (94-97) % VBG pH (7.31-7.41) VBG HCO3 (24-28) mmol/L Hemoglobin (13.0-17.5) gm/dL Sodium (137-145) mmol/L Potassium (3.5-5.1) mmol/L Chloride (98-107) mmol/L Carbon Dioxide 16 L (22-30) mmol/L BUN 141 H* (9-20) mg/dL Creatinine 7.78 H* (0.66-1.25) mg/dL Glucose 540 H* (74-99) mg/dL POC Glucose (mg/dL) 557 H* 517 H* (70-110) mg/dL Plasma Lactic Acid Portillo (0.7-2.0) mmol/L Calcium 7.0 L (8.4-10.2) mg/dL Phosphorus (2.5-4.5) mg/dL Magnesium (1.6-2.3) mg/dL AST (17-59) U/L ALT (4-49) U/L Creatine Kinase (55-170) U/L Troponin I (0.000-0.034) ng/mL Urine RBC (0-5) /hpf Urine WBC (0-5) /hpf Urine WBC Clumps (None) /hpf Urine Bacteria (None) /hpf 09/05/24 09/05/24 09/05/24 Range/Units 01:21 02:11 03:06 WBC (3.8-10.6) k/uL RBC (4.30-5.90) m/uL Hgb (13.0-17.5) gm/dL Hct (39.0-53.0) % Neutrophils # (1.3-7.7) k/uL Lymphocytes # (1.0-4.8) k/uL ABG pH (7.35-7.45) ABG pCO2 (35-45) mmHg ABG pO2 (83-108) mmHg ABG Total CO2 (19-24) mmol/L ABG O2 Saturation (94-97) % VBG pH (7.31-7.41) VBG HCO3 (24-28) mmol/L Hemoglobin (13.0-17.5) gm/dL Sodium (137-145) mmol/L Potassium (3.5-5.1) mmol/L Chloride (98-107) mmol/L Carbon Dioxide (22-30) mmol/L BUN (9-20) mg/dL Creatinine (0.66-1.25) mg/dL Glucose (74-99) mg/dL POC Glucose (mg/dL) 477 H 488 H 367 H (70-110) mg/dL Plasma Lactic Acid Portillo (0.7-2.0) mmol/L Calcium (8.4-10.2) mg/dL Phosphorus (2.5-4.5) mg/dL Magnesium (1.6-2.3) mg/dL AST (17-59) U/L ALT (4-49) U/L Creatine Kinase (55-170) U/L Troponin I (0.000-0.034) ng/mL Urine RBC (0-5) /hpf Urine WBC (0-5) /hpf Urine WBC Clumps (None) /hpf Urine Bacteria (None) /hpf 09/05/24 09/05/24 09/05/24 Range/Units 04:05 04:54 05:30 WBC (3.8-10.6) k/uL RBC (4.30-5.90) m/uL Hgb (13.0-17.5) gm/dL Hct (39.0-53.0) % Neutrophils # (1.3-7.7) k/uL Lymphocytes # (1.0-4.8) k/uL ABG pH (7.35-7.45) ABG pCO2 (35-45) mmHg ABG pO2 (83-108) mmHg ABG Total CO2 (19-24) mmol/L ABG O2 Saturation (94-97) % VBG pH (7.31-7.41) VBG HCO3 (24-28) mmol/L Hemoglobin (13.0-17.5) gm/dL Sodium (137-145) mmol/L Potassium (3.5-5.1) mmol/L Chloride (98-107) mmol/L Carbon Dioxide (22-30) mmol/L BUN 147 H* (9-20) mg/dL Creatinine 7.44 H* (0.66-1.25) mg/dL Glucose 190 H (74-99) mg/dL POC Glucose (mg/dL) 276 H 254 H (70-110) mg/dL Plasma Lactic Acid Portillo (0.7-2.0) mmol/L Calcium 7.3 L (8.4-10.2) mg/dL Phosphorus (2.5-4.5) mg/dL Magnesium (1.6-2.3) mg/dL AST (17-59) U/L ALT (4-49) U/L Creatine Kinase 9320 H* (55-170) U/L Troponin I (0.000-0.034) ng/mL Urine RBC (0-5) /hpf Urine WBC (0-5) /hpf Urine WBC Clumps (None) /hpf Urine Bacteria (None) /hpf 09/05/24 09/05/24 09/05/24 Range/Units 05:30 06:15 06:20 WBC 14.8 H (3.8-10.6) k/uL RBC 4.20 L (4.30-5.90) m/uL Hgb 12.3 L (13.0-17.5) gm/dL Hct 37.8 L (39.0-53.0) % Neutrophils # 14.1 H (1.3-7.7) k/uL Lymphocytes # 0.2 L (1.0-4.8) k/uL ABG pH 7.56 H* (7.35-7.45) ABG pCO2 28 L (35-45) mmHg ABG pO2 178 H (83-108) mmHg ABG Total CO2 25 H (19-24) mmol/L ABG O2 Saturation 100.0 H (94-97) % VBG pH (7.31-7.41) VBG HCO3 (24-28) mmol/L Hemoglobin 12.2 L (13.0-17.5) gm/dL Sodium (137-145) mmol/L Potassium (3.5-5.1) mmol/L Chloride (98-107) mmol/L Carbon Dioxide (22-30) mmol/L BUN (9-20) mg/dL Creatinine (0.66-1.25) mg/dL Glucose (74-99) mg/dL POC Glucose (mg/dL) 222 H (70-110) mg/dL Plasma Lactic Acid Portillo (0.7-2.0) mmol/L Calcium (8.4-10.2) mg/dL Phosphorus (2.5-4.5) mg/dL Magnesium (1.6-2.3) mg/dL AST (17-59) U/L ALT (4-49) U/L Creatine Kinase (55-170) U/L Troponin I (0.000-0.034) ng/mL Urine RBC (0-5) /hpf Urine WBC (0-5) /hpf Urine WBC Clumps (None) /hpf Urine Bacteria (None) /hpf 09/05/24 09/05/24 09/05/24 Range/Units 07:06 09:47 09:54 WBC (3.8-10.6) k/uL RBC (4.30-5.90) m/uL Hgb (13.0-17.5) gm/dL Hct (39.0-53.0) % Neutrophils # (1.3-7.7) k/uL Lymphocytes # (1.0-4.8) k/uL ABG pH (7.35-7.45) ABG pCO2 (35-45) mmHg ABG pO2 (83-108) mmHg ABG Total CO2 (19-24) mmol/L ABG O2 Saturation (94-97) % VBG pH (7.31-7.41) VBG HCO3 (24-28) mmol/L Hemoglobin (13.0-17.5) gm/dL Sodium (137-145) mmol/L Potassium (3.5-5.1) mmol/L Chloride (98-107) mmol/L Carbon Dioxide (22-30) mmol/L BUN (9-20) mg/dL Creatinine (0.66-1.25) mg/dL Glucose (74-99) mg/dL POC Glucose (mg/dL) 140 H 122 H 140 H (70-110) mg/dL Plasma Lactic Acid Portillo (0.7-2.0) mmol/L Calcium (8.4-10.2) mg/dL Phosphorus (2.5-4.5) mg/dL Magnesium (1.6-2.3) mg/dL AST (17-59) U/L ALT (4-49) U/L Creatine Kinase (55-170) U/L Troponin I (0.000-0.034) ng/mL Urine RBC (0-5) /hpf Urine WBC (0-5) /hpf Urine WBC Clumps (None) /hpf Urine Bacteria (None) /hpf Assessment and Plan (1) Sepsis Current Visit: Yes Status: Acute Code(s): A41.9 - SEPSIS, UNSPECIFIED ORGANISM SNOMED Code(s): 20132408 (2) Pneumonia Current Visit: Yes Status: Acute Code(s): J18.9 - PNEUMONIA, UNSPECIFIED ORGANISM SNOMED Code(s): 734907179 (3) UTI (urinary tract infection) Current Visit: No Status: Acute Code(s): N39.0 - URINARY TRACT INFECTION, SITE NOT SPECIFIED SNOMED Code(s): 38662719 Plan: 1patient with sepsis in this patient who did have a fever hyortension requiring pressor support maintaining criteria for SIRS source is likely UTI pneumonia not entirely excluded 2-blood culture has been obtained sputum and urine culture have been requested 3-patient is empirically covered with Rocephin and Zithromax while waiting for the workup to be completed Family at the bedside questions answered We will follow on clinical condition and cultures to further adjust medication if needed Thank you for this consultation we will follow the patient along with you Dictation was produced using [employer] dictation software. please excuse any grammatical, word or spelling errors. Time with Patient: Greater than 30
[2024-09-05 22:53] LABS: Glucose,Whole Blood 175 mg/dL (70-110)
[2024-09-05 23:19] LABS: Glucose,Whole Blood 191 mg/dL (70-110)
[2024-09-06 00:05] LABS: Glucose,Whole Blood 197 mg/dL (70-110)
[2024-09-06 01:09] LABS: Glucose,Whole Blood 178 mg/dL (70-110)
[2024-09-06 02:10] LABS: Glucose,Whole Blood 169 mg/dL (70-110)
[2024-09-06 03:10] LABS: Glucose,Whole Blood 139 mg/dL (70-110)
[2024-09-06 04:16] LABS: Glucose,Whole Blood 124 mg/dL (70-110)
[2024-09-06 05:10] LABS: Basophils % (A) 0 %; Eosinophils # (A) 0.2 k/uL (0-0.7); Eosinophils % (A) 1 %; HCT 33.1 % (39.0-53.0); HGB 11.2 gm/dL (13.0-17.5); Lymphocytes # (A) 0.4 k/uL (1.0-4.8); Lymphocytes % (A) 3 %; MCH 29.9 pg (25.0-35.0); MCHC 33.8 g/dL (31.0-37.0); MCV 88.2 fL (80.0-100.0); Mean Platelet Volume 10.2; Monocytes # (A) 0.5 k/uL (0-1.0); Monocytes % (A) 4 %; Neutrophils # (A) 12.4 k/uL (1.3-7.7); Neutrophils % (A) 92 %; Platelet Count 119 k/uL (150-450); RBC 3.75 m/uL (4.30-5.90); RDW 14.9 % (11.5-15.5); WBC 13.6 k/uL (3.8-10.6)
[2024-09-06 05:26] LABS: ALT 113 U/L (4-49); AST 304 U/L (17-59); African American GFR (CKD) 8 (>60 ml/min/1.73 sqM); Albumin 2.3 g/dL (3.5-5.0); Alkaline Phosphatase 135 U/L (38-126); Anion Gap 13 mmol/L; Calcium 6.6 mg/dL (8.4-10.2); Carbon Dioxide 23 mmol/L (22-30); Chloride 107 mmol/L (98-107); Glucose 137 mg/dL (74-99); Magnesium 2.1 mg/dL (1.6-2.3); Non-African American GFR(CKD) 7 (>60 ml/min/1.73 sqM); Potassium 3.8 mmol/L (3.5-5.1); Sodium 143 mmol/L (137-145); Total Bilirubin 2.2 mg/dL (0.2-1.3); Total Protein 4.8 g/dL (6.3-8.2)
[2024-09-06 05:34] LABS: ABG Base Excess 0.2 mmol/L; ABG HCO3 24 mmol/L (21-25); ABG Oxygen Saturation 95.2 % (94-97); ABG PCO2 34 mmHg (35-45); ABG PH 7.46 (7.35-7.45); ABG PO2 72 mmHg (83-108); ABG TCO2 25 mmol/L (19-24); Allen Test Performed? Yes
[2024-09-06 05:52] LABS: Blood Urea Nitrogen 138 mg/dL (9-20)
[2024-09-06 06:22] LABS: Creatine Kinase 6149 U/L (55-170)
[2024-09-06 07:59] LABS: Glucose,Whole Blood 164 mg/dL (70-110)
--- NOTE | 2024-09-06 07:59 | XR ---
EXAMINATION TYPE: XR chest 1V portable DATE OF EXAM: 09/06/2024 5:18 AM COMPARISON: 09/05/2024 CLINICAL INDICATION: Male, 64 years old with history of mechanical ventilation, TECHNIQUE: XR chest 1V portable view(s) obtained. FINDINGS: The heart size is enlarged. The pulmonary vasculature is somewhat prominent. Mild right lower lobe infiltrate is present. Correlate for atelectasis or pneumonia. Findings have wo rsened. Endotracheal tube tip is 4.7 cm above nicol. Nasogastric tube transverses the thorax left central ve nous catheter tip is in the distal superior vena cava region IMPRESSION: 1. Mild worsening right lower lobe infiltrate. Correlate for atelectasis or developing pneumonia. 2. Lines and catheters discussed above [facility], , 09/06/2024 7:57 AM
[2024-09-06 09:10] LABS: Glucose,Whole Blood 196 mg/dL (70-110)
--- NOTE | 2024-09-06 09:48 | P.CRDCN ---
History of Present Illness Consult date: 09/06/24 Consult reason: congestive heart failure History of present illness: The patient is a 64-year-old male who presented to the hospital status post m echanical fall with prolonged downtime. Patient has been found to be in rhabdomyolysis with acute renal failure. Patient was intubated to protect his airway with mental status changes. Cardiology has been consulted for elevated troponins and BNP. DIAGNOSTICS: EKG shows sinus rhythm with incomplete right bundle branch block Lab data: WBC 13.6, hemoglobin 11.2, hematocrit 33.1, platelet 119, sodium 143, potassium 3.8, BUN 138, creatinine 7.6, calcium 6.6, phosphorus 5.0, magnesium 2.1, AST 304, ALT 113, ALP 135, creatinine kinase 6149, troponin 0.04, 0.04, BNP 4510, procalcitonin over 100, drug screen negative Initial chest x-ray shows mild linear infiltrate on the left lung consistent wit h atelectasis and early pneumonia Echocardiogram shows reduced LV function at 30% without significant valvular abnormalities REVIEW OF SYSTEMS: Patient is currently sedated on ventilator PHYSICAL EXAMINATION: This is a 64-year-old male. Sedated on ventilator HEENT: Head is atraumatic, normocephalic. Pupils are equal, round. There is no jugular venous distention. No carotid bruit is heard. CHEST EXAMINATION: Lungs are diminished to auscultation. No chest wall tenderness is noted on palpation or with deep breathing. HEART EXAMINATION: regular rate and rhythm. Notably tachycardic. S1, S2 heard. No murmurs, gallops or rub. ABDOMEN: Soft, nontender. Bowel sounds are heard. No organomegaly noted. EXTREMITIES: 2+ peripheral pulses with no evidence of peripheral edema and no calf tenderness noted. FINAL ASSESSMENT AND PLAN: Metabolic encephalopathy Sepsis Acute hypoxic respiratory failure Acute rhabdomyolysis Congestive heart failure, systolic Acute kidney injury Troponin elevation, likely type II myocardial infarction History of diabetes PLAN: Continue supportive treatment Start beta-blockers when off vasopressors Start statins when liver enzymes improve Further recommendations to be based upon clinical course I am dictating on behalf of Dr Chucho Aguilera's history/physical and assessment/plan. Past Medical History Past Medical History: Diabetes Mellitus, Hyperlipidemia History of Any Multi-Drug Resistant Organisms: None Reported Past Surgical History: Orthopedic Surgery, Tonsillectomy Additional Past Surgical History / Comment(s): tip of rt middle finger removed from work injury Past Anesthesia/Blood Transfusion Reactions: No Reported Reaction Past Psychological History: No Psychological Hx Reported Smoking Status: Never smoker Past Alcohol Use History: Unable to Obtain Past Drug Use History: Unable to Obtain Medications and Allergies Home Medications Medication Instructions Recorded Confirmed Type Lovastatin [Mevacor] 40 mg PO W/SUPPER 05/01/18 09/04/24 History Ferrous Sulfate [Iron (65 MG 325 mg PO DAILY 06/17/22 09/04/24 History Elemental)] Furosemide [Lasix] 40 mg PO BID@0900,1600 08/05/22 09/04/24 History hydrALAZINE HCL [Apresoline] 100 mg PO TID 08/05/22 09/04/24 History Isosorbide Mononitrate ER [Imdur] 30 mg PO DAILY 12/10/22 09/04/24 History allopurinoL [Zyloprim] 100 mg PO BID 12/10/22 09/04/24 History Famotidine [Pepcid] 20 mg PO HS PRN 05/06/23 09/04/24 History Glimepiride [Amaryl] 8 mg PO W/BRKFST 05/06/23 09/04/24 History carvediloL [Coreg] 25 mg PO BID-W/MEALS 05/06/23 09/04/24 History metFORMIN HCL ER [Glucophage XR] 500 mg PO DAILY 05/06/23 09/04/24 History Dulaglutide [Trulicity] 3 mg SQ Q7D 04/25/24 09/04/24 History amLODIPine [Norvasc] 5 mg PO DAILY 04/25/24 09/04/24 History lisinopriL [Zestril] 2.5 mg PO DAILY 04/25/24 09/04/24 History Dapagliflozin Propanediol [Farxiga] 5 mg PO DAILY 09/04/24 09/04/24 History Tamsulosin [Flomax] 0.4 mg PO HS 09/04/24 09/04/24 History calcitrioL [Rocaltrol] 0.25 mcg PO Q7D 09/04/24 09/04/24 History Allergies Allergy/AdvReac Type Severity Reaction Status Date / Time No Known Allergies Allergy Verified 09/04/24 19:37 Physical Exam Vitals: Vital Signs Temp Pulse Resp BP Pulse Ox FiO2 09/06/24 08:50 92 09/06/24 08:34 96 09/06/24 08:32 40 09/06/24 07:00 51 L 23 96 09/06/24 06:00 28 H 96 09/06/24 05:00 97 27 H 95 09/06/24 04:00 99.6 F 91 21 99 40 09/06/24 03:34 90 09/06/24 03:27 87 40 09/06/24 03:00 87 20 100 09/06/24 02:00 87 20 100 09/06/24 01:00 88 20 99 09/06/24 00:05 91 20 100 09/06/24 00:00 99.2 F 90 20 99 40 09/05/24 23:49 91 09/05/24 23:42 90 09/05/24 23:41 40 09/05/24 23:00 92 21 99 09/05/24 22:00 90 22 100 09/05/24 21:00 86 23 97 09/05/24 20:29 90 09/05/24 20:23 93 40 09/05/24 20:00 101.1 F H 93 25 H 98 40 09/05/24 19:00 92 18 100 09/05/24 18:00 77 16 100 09/05/24 17:00 76 20 98 09/05/24 16:25 82 09/05/24 16:10 86 09/05/24 16:09 40 09/05/24 16:00 37.0 F L 80 20 100 40 09/05/24 15:07 40 09/05/24 15:00 83 20 100 09/05/24 14:00 98 21 100 09/05/24 13:00 90 21 100 09/05/24 12:47 92 09/05/24 12:41 40 09/05/24 12:30 89 09/05/24 12:00 99.6 F 92 22 99 40 09/05/24 11:32 40 09/05/24 11:00 97 20 95/51 09/05/24 10:32 100 09/05/24 10:00 92 12 105/50 97 Intake and Output 09/05/24 09/06/24 09/06/24 22:59 06:59 14:59 Intake Total 0227.191 6749.936 523.446 Output Total 230 250 95 Balance 780.136 780.936 428.446 Intake: IV 800 800 400 Cefepime 1 gm In Sodium 100 Chloride 0.9% 50 ml @ 12. 5 mls/hr IVPB DAILY [facility] Rx#:[id number] LR 800 800 300 Intake, IV Titration 210.136 230.936 123.446 Amount Insulin Regular 100 unit 23.25 21.35 In Sodium Chloride 0.9% 100 ml @ Titrate IV .Q0M [facility] Rx#:[id number] Norepinephrine 4 mg In 186.886 109.586 123.446 Sodium Chloride 0.9% 250 ml @ 0.03 MCG/KG/MIN 8. 573 mls/hr IV .Q24H [facility] Rx#:[id number] propofoL 1,000 mg In 100 Empty Bag 1 bag @ 15 MCG/ KG/MIN 6.75 mls/hr IV . [id number] [facility] Rx#:[id number] Output: Urine 230 250 95 Other: Voiding Method Indwelling Catheter Indwelling Catheter Indwelling Catheter Weight 80.7 kg ABP, PAP, CO, CI - Last 8 Hours Arterial Blood Pressure 113/52 Arterial Blood Pressure 115/55 Arterial Blood Pressure 114/53 Arterial Blood Pressure 115/62 Arterial Blood Pressure 109/59 Arterial Blood Pressure 116/61 Results 09/07/24 04:40 09/07/24 04:40 Cardiac Enzymes 09/05/24 09/05/24 09/06/24 Range/Units 09:52 14:24 04:47 AST 304 H (17-59) U/L Troponin I 0.050 H* 0.044 H* (0.000-0.034) ng/mL CBC 09/06/24 Range/Units 04:47 WBC 13.6 H (3.8-10.6) k/uL RBC 3.75 L (4.30-5.90) m/uL Hgb 11.2 L (13.0-17.5) gm/dL Hct 33.1 L (39.0-53.0) % Plt Count 119 L (150-450) k/uL Comprehensive Metabolic Panel 09/05/24 09/06/24 Range/Units 14:24 04:47 Sodium 143 143 (137-145) mmol/L Potassium 3.1 L 3.8 (3.5-5.1) mmol/L Chloride 104 107 (98-107) mmol/L Carbon Dioxide 26 23 (22-30) mmol/L BUN 139 H* 138 H* (9-20) mg/dL Creatinine 7.75 H* 7.61 H* (0.66-1.25) mg/dL Glucose 163 H 137 H (74-99) mg/dL Calcium 6.7 L 6.6 L (8.4-10.2) mg/dL AST 304 H (17-59) U/L ALT 113 H (4-49) U/L Alkaline Phosphatase 135 H (38-126) U/L Total Protein 4.8 L (6.3-8.2) g/dL Albumin 2.3 L (3.5-5.0) g/dL Current Medications Generic Name Dose Route Start Last Admin Trade Name Freq PRN Reason Stop Dose Admin Albuterol/Ipratropium 3 ml 09/04/24 18:07 09/05/24 09:01 Ipratropium-Albuterol 3 Ml Neb INHALATION 3 ml RT-Q4H PRN Administration shortness of breath Albuterol/Ipratropium 3 ml 09/05/24 12:00 09/06/24 08:34 Ipratropium-Albuterol 3 Ml Neb INHALATION 3 ml RT-Q4H [facility] Administration Dextrose/Water 25 ml 09/04/24 21:43 Dextrose 50% Syringe 50 Ml IVP PER PROTOCOL PRN Hypoglycemia Protocol Dextrose/Water 50 ml 09/04/24 21:43 09/05/24 18:14 Dextrose 50% Syringe 50 Ml IVP 50 ml PER PROTOCOL PRN Administration Hypoglycemia Protocol Famotidine 20 mg 09/05/24 09:45 09/06/24 08:46 Famotidine 20 Mg/2 Ml Vial IV 20 mg DAILY [facility] Administration Heparin Sodium (Porcine) 5,000 unit 09/05/24 09:00 09/06/24 08:46 Heparin Sodium,Porcine 5,000 Unit/Ml 1 Ml Vial SQ 5,000 unit Q12HR [facility]I Administration Insulin Human Regular 100 unit 100 mls @ 0 mls/hr 09/04/24 22:15 09/06/24 03:11 / Sodium Chloride IV 0 units/hr .Q0M [facility] 0 mls/hr Titration Protocol Titrate Cefepime HCl 1 gm/ Sodium 50 mls @ 12.5 mls/hr 09/05/24 14:00 09/06/24 08:46 Chloride IVPB 12.5 mls/hr DAILY [facility] Administration Norepinephrine Bitartrate 4 mg 254 mls @ 8.573 mls/hr 09/05/24 14:15 09/06/24 07:02 / Sodium Chloride IV 0.09 mcg/kg/min .Q24H [facility] 25.718 mls/hr Administration Protocol 0.03 MCG/KG/MIN Propofol 1,000 mg/ IV Solution 100 mls @ 6.75 mls/hr 09/05/24 20:00 09/06/24 05:04 IV 40 mcg/kg/min .[id number] [facility] 18 mls/hr Administration Protocol 15 MCG/KG/MIN Lactated Ringer's 1,000 mls @ 100 mls/hr 09/06/24 09:45 Lactated Ringers IV .Q10H [facility] Naloxone HCl 0.2 mg 09/04/24 18:07 Naloxone 0.4 Mg/Ml 1 Ml Vial IV Q2M PRN Opioid Reversal Ondansetron HCl 4 mg 09/05/24 09:41 Ondansetron 4 Mg/2 Ml Vial IVP Q6HR PRN Nausea And Vomiting Tamsulosin HCl 0.4 mg 09/05/24 21:00 09/05/24 20:46 Tamsulosin 0.4 Mg Cap.Er.24h PO Not Given HS [facility]I Intake and Output 09/05/24 09/06/24 09/06/24 22:59 06:59 14:59 Intake Total 4280.967 8227.936 523.446 Output Total 230 250 95 Balance 780.136 780.936 428.446 Intake: IV 800 800 400 Cefepime 1 gm In Sodium 100 Chloride 0.9% 50 ml @ 12. 5 mls/hr IVPB DAILY [facility] Rx#:[id number] LR 800 800 300 Intake, IV Titration 210.136 230.936 123.446 Amount Insulin Regular 100 unit 23.25 21.35 In Sodium Chloride 0.9% 100 ml @ Titrate IV .Q0M [facility] Rx#:[id number] Norepinephrine 4 mg In 186.886 109.586 123.446 Sodium Chloride 0.9% 250 ml @ 0.03 MCG/KG/MIN 8. 573 mls/hr IV .Q24H [facility] Rx#:[id number] propofoL 1,000 mg In 100 Empty Bag 1 bag @ 15 MCG/ KG/MIN 6.75 mls/hr IV . [id number] [facility] Rx#:[id number] Output: Urine 230 250 95 Other: Voiding Method Indwelling Catheter Indwelling Catheter Indwelling Catheter Weight 80.7 kg 09/06/24 04:47 09/06/24 04:47
--- NOTE | 2024-09-06 10:43 | P.PN ---
Subjective Progress Note Date: 09/06/24 histpry of present illness: Patient is a 64-year-old male with past medical history significant for diabetes mellitus, chronic kidney disease, hyperlipidemia, hypertension, among other things. Patient is currently in the intensive care unit, he is a poor historian. Unable to provide reliable hi story. The ER provider did not contact me. Per the ER documentation, patient was found on the ground for an unknown known amount of time, last seen well 2 weeks prior by his sister. He was found to be in acute rhabdomyolysis with acute renal failure. He was also found with elevated blood sugars. CT of the brain and C-spine without contrast showing no acute intracranial process and no acute osseous abnormalities of the C-spine. Initial labs include a CBC: WBC count 17.3, hemoglobin 14.6, hematocrit 45.1, platelets 226. CMP: Sodium 136, potassium 5.7, chloride 95, serum bicarb 14, BUN 137, creatinine 8.82, glucose 578. Lactic 1.5. Magnesium 2.7. LFTs mildly elevated. Troponin 0.043. NT proBNP 4510. EKG: normal sinus rhythm, rate 88 bpm, incomplete RBB pattern, without obvious acute ischemic changes. Urine drug screen unremarkable. Serum ETOH < 10. Currently evaluating this patient in the intensive care unit. CPK was 7555 on arrival. Did receive 1.5 L normal saline bolus in in ED and started on normal saline at 130 ml/hr. Subsequently started on sodium bicarbonate infusion 3 A in D5W at 100 mL/h. urine output is in the order of 30 to 50 cc/h. Nephrology is managing. Repeat potassium is down to 4.7. On arrival blood glucose 578, serum bicarb 12, anion gap 27, acetone positive. Patient has also been started on insulin infusion Per protocol. He did develop some respiratory distress, breathing in the high 40s. I did ask for the pateint to be placed on BiPAP with settings 10/5 and FiO2 to be titrated appropriately. Chest x-ray showing cardiomegaly. There is a left midlung linear infiltrates concerning for atelectasis or early pneumonia. Patient does have bruising to his left lateral chest. It is painful to palpation without crepitus or subcutaneous emphysema. Patient was empirically started on antibiotics in the ED.Current vitals: 97.6 F, blood pressure 115/85 mmHg, heart rate 78 bpm, tachypneic breathing in the high 40s, SpO2 is 100% on BiPAP with settings 10/5 FiO2 100%. Prognosis is guarded. 09/06/24 - Patient seen at bedside this morning, remaining in the ICU, day 2 of hospitalization, admitted on 09/05/24 and in the ICU since that time. He was placed to mechanical ventilation with intubation yesterday (09/05/24). He is on assist-control with a rate of 20, volume 450, FiO2 40%, PEEP of 5. ABG this morning showed pO2 72, pCO2 34, pH 7.46, indicating respiratory alkalosis with relative hypoxemia. Initial improvement in his WBCs down to 13.6 (from 14.8) this morning, his hemoglobin decreased to 11.2. His BUN is 138, creatinine 7.6 1. Increase in AST, 3-4, and ALT, up to 113. Phosphorus 5.0, remaining 9, calcium 6.6, remaining well. Creatinine Kinase remains elevated, showing improvements, to 6149. His procalcitonin returned at > 100. His blood cultures were positive for Enterobacter cloacae without resistance noted, patient placed on cefepime - discontinued Rocephin and Zithromax. Patient remained Levophed at 0.09 mcg/kg/min (7.26 mcg/min) and propofol 40 mcg/kg/min. Blood pressure this morning 113/52. He will be started on vital HP 10 cc/h, with a goal being 37 cc/h. REVIEW OF SYSTEMS: Unable to assess the patient allan intubated mechanically ventilated. PHYSICAL EXAMINATION: GENERAL: Patient currently intubated mechanically ventilated. HEENT:No scleral icterus. No conjunctival pallor. Normocephalic, atraumatic. CARDIOVASCULAR: S1 and S2 present. No murmurs, rubs, or gallops. PULMONARY: Chest is clear to auscultation, no wheezing or crackles. ABDOMEN: Soft, nontender, nondistended, normoactive bowel sounds. No palpable organomegaly. MUSCULOSKELETAL: No joint swelling or deformity. EXTREMITIES: No cyanosis, clubbing, or pedal edema. NEUROLOGICAL: Intubated, mechanically ventilated, sedated. Unable to fully assess. SKIN: No rashes. Assessment and plan #Acute hypoxic respiratory failure, requiring mechanical ventilation and intubation on 09/05/24 -Rate of 20, volume 450, FiO2 40%, PEEP of 5 -ABG this morning showed pO2 72, pCO2 34, pH 7.46 indicating respiratory alkalosis -Additionally indicating relative hypoxemia -Continue to monitor ABGs and adjust the settings of the ventilator as able and tolerated #Acute rhabdomyolysis #Acute kidney injury; Acute tubular necrosis #Elevated troponins, in setting of acute renal failure -Initial creatinine kinase 7555, increased to 9320 -Creatinine kinase this morning 6149 -Patient continuing on lactated ringer 100 cc/h -Nephrology consulted; consult made for temporary hemodialysis catheter to be placed #Sepsis, verified Enterobacter cloacae infection #Hypertension, secondary to above -WBCs remain elevated, Tmax 102.2 F -Blood cultures positive for Enterobacter Cloacae -Patient started on cefepime 1 g daily; discontinued Rocephin and Zithromax -Patient maintained on Levophed 0.09 mcg/kg/min (7.26 mcg/min) -Infectious disease consulted #Mechanical fall, is on home 2 weeks prior -CT of the brain and CT spine without contrast showed no acute intracranial process and no acute osseous abnormalities in the C-spine #Hyperkalemia, resolved #Anion gap metabolic acidosis, improving #Hyperphosphatemia, improving #Hypocalcemia likely secondary to decreased albumin -Continue to monitor BMP #Hx of HTN #Hx of HLD #Hx of T2DM #Chronic kidney disease stage IIIb #Hx of frequent UTIs GI prophylaxis: Pepcid 20 mg IV daily DVT Prophylaxis: 5000 units heparin SQ every 12 hours Dictation was produced using [employer] dictation software. please excuse any grammatical, word or spelling errors. Objective - Vital Signs Vital signs: Vital Signs Temp 99.6 F 09/06/24 04:00 Pulse 96 09/06/24 08:34 Resp 23 09/06/24 07:00 BP 95/51 09/05/24 11:00 Pulse Ox 96 09/06/24 07:00 FiO2 40 09/06/24 08:32 Intake & Output 09/05/24 09/06/24 09/06/24 18:59 06:59 18:59 Intake Total 3000.000 1617.822 223.446 Output Total 85 405 35 Balance 2915.000 1212.822 188.446 Weight 80.7 kg Intake: IV 2900 1200 100 0.9 1100 Cefepime 1 gm In Sodium 100 Chloride 0.9% 50 ml @ 12. 5 mls/hr IVPB DAILY MONI Rx#:[id number] Dextrose 5% in Water 1, 100 000 ml @ 130 mls/hr IV . Q8H51M MONI with Sodium Bicarb (1 Meq/ml) 150 ml Rx#:[id number] LR 1600 1200 100 Intake, IV Titration 100.000 417.822 123.446 Amount Insulin Regular 100 unit 100.000 21.35 In Sodium Chloride 0.9% 100 ml @ Titrate IV .Q0M [facility]I Rx#:[id number] Norepinephrine 4 mg In 296.472 123.446 Sodium Chloride 0.9% 250 ml @ 0.03 MCG/KG/MIN 8. 573 mls/hr IV .Q24H MONI Rx#:[id number] propofoL 1,000 mg In 100 Empty Bag 1 bag @ 15 MCG/ KG/MIN 6.75 mls/hr IV . [id number] MONI Rx#:[id number] Output: Urine 85 405 35 Other: Voiding Method Indwelling Catheter Indwelling Catheter ABP, PAP, CO, CI - Last Documented Arterial Blood Pressure 113/52 - Labs CBC & Chem 7: 09/06/24 04:47 09/06/24 04:47 Labs: Abnormal Lab Results - Last 24 Hours (Table) 09/05/24 09/05/24 09/05/24 Range/Units 05:30 05:30 09:47 WBC (3.8-10.6) k/uL RBC (4.30-5.90) m/uL Hgb (13.0-17.5) gm/dL Hct (39.0-53.0) % Plt Count (150-450) k/uL Neutrophils # (1.3-7.7) k/uL Lymphocytes # (1.0-4.8) k/uL ABG pH (7.35-7.45) ABG pCO2 (35-45) mmHg ABG pO2 (83-108) mmHg ABG HCO3 (21-25) mmol/L ABG Total CO2 (19-24) mmol/L ABG O2 Saturation (94-97) % Hemoglobin (13.0-17.5) gm/dL Potassium (3.5-5.1) mmol/L BUN (9-20) mg/dL Creatinine (0.66-1.25) mg/dL Glucose (74-99) mg/dL POC Glucose (mg/dL) 122 H (70-110) mg/dL Calcium (8.4-10.2) mg/dL Phosphorus (2.5-4.5) mg/dL Total Bilirubin (0.2-1.3) mg/dL AST (17-59) U/L ALT (4-49) U/L Alkaline Phosphatase (38-126) U/L Creatine Kinase 9320 H* (55-170) U/L Troponin I (0.000-0.034) ng/mL Total Protein (6.3-8.2) g/dL Albumin (3.5-5.0) g/dL Procalcitonin >100.00 H (0.02-0.50) ng/mL 09/05/24 09/05/24 09/05/24 Range/Units 09:52 09:54 11:27 WBC (3.8-10.6) k/uL RBC (4.30-5.90) m/uL Hgb (13.0-17.5) gm/dL Hct (39.0-53.0) % Plt Count (150-450) k/uL Neutrophils # (1.3-7.7) k/uL Lymphocytes # (1.0-4.8) k/uL ABG pH 7.49 H (7.35-7.45) ABG pCO2 (35-45) mmHg ABG pO2 321 H (83-108) mmHg ABG HCO3 27 H (21-25) mmol/L ABG Total CO2 28 H (19-24) mmol/L ABG O2 Saturation >100.0 H (94-97) % Hemoglobin 10.8 L (13.0-17.5) gm/dL Potassium (3.5-5.1) mmol/L BUN (9-20) mg/dL Creatinine (0.66-1.25) mg/dL Glucose (74-99) mg/dL POC Glucose (mg/dL) 140 H (70-110) mg/dL Calcium (8.4-10.2) mg/dL Phosphorus (2.5-4.5) mg/dL Total Bilirubin (0.2-1.3) mg/dL AST (17-59) U/L ALT (4-49) U/L Alkaline Phosphatase (38-126) U/L Creatine Kinase (55-170) U/L Troponin I 0.050 H* (0.000-0.034) ng/mL Total Protein (6.3-8.2) g/dL Albumin (3.5-5.0) g/dL Procalcitonin (0.02-0.50) ng/mL 09/05/24 09/05/24 09/05/24 Range/Units 11:54 12:59 13:58 WBC (3.8-10.6) k/uL RBC (4.30-5.90) m/uL Hgb (13.0-17.5) gm/dL Hct (39.0-53.0) % Plt Count (150-450) k/uL Neutrophils # (1.3-7.7) k/uL Lymphocytes # (1.0-4.8) k/uL ABG pH (7.35-7.45) ABG pCO2 (35-45) mmHg ABG pO2 (83-108) mmHg ABG HCO3 (21-25) mmol/L ABG Total CO2 (19-24) mmol/L ABG O2 Saturation (94-97) % Hemoglobin (13.0-17.5) gm/dL Potassium (3.5-5.1) mmol/L BUN (9-20) mg/dL Creatinine (0.66-1.25) mg/dL Glucose (74-99) mg/dL POC Glucose (mg/dL) 256 H 232 H 189 H (70-110) mg/dL Calcium (8.4-10.2) mg/dL Phosphorus (2.5-4.5) mg/dL Total Bilirubin (0.2-1.3) mg/dL AST (17-59) U/L ALT (4-49) U/L Alkaline Phosphatase (38-126) U/L Creatine Kinase (55-170) U/L Troponin I (0.000-0.034) ng/mL Total Protein (6.3-8.2) g/dL Albumin (3.5-5.0) g/dL Procalcitonin (0.02-0.50) ng/mL 09/05/24 09/05/24 09/05/24 Range/Units 14:24 14:24 15:57 WBC (3.8-10.6) k/uL RBC (4.30-5.90) m/uL Hgb (13.0-17.5) gm/dL Hct (39.0-53.0) % Plt Count (150-450) k/uL Neutrophils # (1.3-7.7) k/uL Lymphocytes # (1.0-4.8) k/uL ABG pH (7.35-7.45) ABG pCO2 (35-45) mmHg ABG pO2 (83-108) mmHg ABG HCO3 (21-25) mmol/L ABG Total CO2 (19-24) mmol/L ABG O2 Saturation (94-97) % Hemoglobin (13.0-17.5) gm/dL Potassium 3.1 L (3.5-5.1) mmol/L BUN 139 H* (9-20) mg/dL Creatinine 7.75 H* (0.66-1.25) mg/dL Glucose 163 H (74-99) mg/dL POC Glucose (mg/dL) 159 H (70-110) mg/dL Calcium 6.7 L (8.4-10.2) mg/dL Phosphorus (2.5-4.5) mg/dL Total Bilirubin (0.2-1.3) mg/dL AST (17-59) U/L ALT (4-49) U/L Alkaline Phosphatase (38-126) U/L Creatine Kinase (55-170) U/L Troponin I 0.044 H* (0.000-0.034) ng/mL Total Protein (6.3-8.2) g/dL Albumin (3.5-5.0) g/dL Procalcitonin (0.02-0.50) ng/mL 09/05/24 09/05/24 09/05/24 Range/Units 18:04 18:22 19:05 WBC (3.8-10.6) k/uL RBC (4.30-5.90) m/uL Hgb (13.0-17.5) gm/dL Hct (39.0-53.0) % Plt Count (150-450) k/uL Neutrophils # (1.3-7.7) k/uL Lymphocytes # (1.0-4.8) k/uL ABG pH (7.35-7.45) ABG pCO2 (35-45) mmHg ABG pO2 (83-108) mmHg ABG HCO3 (21-25) mmol/L ABG Total CO2 (19-24) mmol/L ABG O2 Saturation (94-97) % Hemoglobin (13.0-17.5) gm/dL Potassium (3.5-5.1) mmol/L BUN (9-20) mg/dL Creatinine (0.66-1.25) mg/dL Glucose (74-99) mg/dL POC Glucose (mg/dL) 45 L* 124 H 119 H (70-110) mg/dL Calcium (8.4-10.2) mg/dL Phosphorus (2.5-4.5) mg/dL Total Bilirubin (0.2-1.3) mg/dL AST (17-59) U/L ALT (4-49) U/L Alkaline Phosphatase (38-126) U/L Creatine Kinase (55-170) U/L Troponin I (0.000-0.034) ng/mL Total Protein (6.3-8.2) g/dL Albumin (3.5-5.0) g/dL Procalcitonin (0.02-0.50) ng/mL 09/05/24 09/05/24 09/05/24 Range/Units 20:12 21:04 22:17 WBC (3.8-10.6) k/uL RBC (4.30-5.90) m/uL Hgb (13.0-17.5) gm/dL Hct (39.0-53.0) % Plt Count (150-450) k/uL Neutrophils # (1.3-7.7) k/uL Lymphocytes # (1.0-4.8) k/uL ABG pH (7.35-7.45) ABG pCO2 (35-45) mmHg ABG pO2 (83-108) mmHg ABG HCO3 (21-25) mmol/L ABG Total CO2 (19-24) mmol/L ABG O2 Saturation (94-97) % Hemoglobin (13.0-17.5) gm/dL Potassium (3.5-5.1) mmol/L BUN (9-20) mg/dL Creatinine (0.66-1.25) mg/dL Glucose (74-99) mg/dL POC Glucose (mg/dL) 144 H 163 H 175 H (70-110) mg/dL Calcium (8.4-10.2) mg/dL Phosphorus (2.5-4.5) mg/dL Total Bilirubin (0.2-1.3) mg/dL AST (17-59) U/L ALT (4-49) U/L Alkaline Phosphatase (38-126) U/L Creatine Kinase (55-170) U/L Troponin I (0.000-0.034) ng/mL Total Protein (6.3-8.2) g/dL Albumin (3.5-5.0) g/dL Procalcitonin (0.02-0.50) ng/mL 09/05/24 09/06/24 09/06/24 Range/Units 23:17 00:04 01:07 WBC (3.8-10.6) k/uL RBC (4.30-5.90) m/uL Hgb (13.0-17.5) gm/dL Hct (39.0-53.0) % Plt Count (150-450) k/uL Neutrophils # (1.3-7.7) k/uL Lymphocytes # (1.0-4.8) k/uL ABG pH (7.35-7.45) ABG pCO2 (35-45) mmHg ABG pO2 (83-108) mmHg ABG HCO3 (21-25) mmol/L ABG Total CO2 (19-24) mmol/L ABG O2 Saturation (94-97) % Hemoglobin (13.0-17.5) gm/dL Potassium (3.5-5.1) mmol/L BUN (9-20) mg/dL Creatinine (0.66-1.25) mg/dL Glucose (74-99) mg/dL POC Glucose (mg/dL) 191 H 197 H 178 H (70-110) mg/dL Calcium (8.4-10.2) mg/dL Phosphorus (2.5-4.5) mg/dL Total Bilirubin (0.2-1.3) mg/dL AST (17-59) U/L ALT (4-49) U/L Alkaline Phosphatase (38-126) U/L Creatine Kinase (55-170) U/L Troponin I (0.000-0.034) ng/mL Total Protein (6.3-8.2) g/dL Albumin (3.5-5.0) g/dL Procalcitonin (0.02-0.50) ng/mL 09/06/24 09/06/24 09/06/24 Range/Units 02:09 03:07 04:15 WBC (3.8-10.6) k/uL RBC (4.30-5.90) m/uL Hgb (13.0-17.5) gm/dL Hct (39.0-53.0) % Plt Count (150-450) k/uL Neutrophils # (1.3-7.7) k/uL Lymphocytes # (1.0-4.8) k/uL ABG pH (7.35-7.45) ABG pCO2 (35-45) mmHg ABG pO2 (83-108) mmHg ABG HCO3 (21-25) mmol/L ABG Total CO2 (19-24) mmol/L ABG O2 Saturation (94-97) % Hemoglobin (13.0-17.5) gm/dL Potassium (3.5-5.1) mmol/L BUN (9-20) mg/dL Creatinine (0.66-1.25) mg/dL Glucose (74-99) mg/dL POC Glucose (mg/dL) 169 H 139 H 124 H (70-110) mg/dL Calcium (8.4-10.2) mg/dL Phosphorus (2.5-4.5) mg/dL Total Bilirubin (0.2-1.3) mg/dL AST (17-59) U/L ALT (4-49) U/L Alkaline Phosphatase (38-126) U/L Creatine Kinase (55-170) U/L Troponin I (0.000-0.034) ng/mL Total Protein (6.3-8.2) g/dL Albumin (3.5-5.0) g/dL Procalcitonin (0.02-0.50) ng/mL 09/06/24 09/06/24 09/06/24 Range/Units 04:47 04:47 05:30 WBC 13.6 H (3.8-10.6) k/uL RBC 3.75 L (4.30-5.90) m/uL Hgb 11.2 L (13.0-17.5) gm/dL Hct 33.1 L (39.0-53.0) % Plt Count 119 L (150-450) k/uL Neutrophils # 12.4 H (1.3-7.7) k/uL Lymphocytes # 0.4 L (1.0-4.8) k/uL ABG pH 7.46 H (7.35-7.45) ABG pCO2 34 L (35-45) mmHg ABG pO2 72 L (83-108) mmHg ABG HCO3 (21-25) mmol/L ABG Total CO2 25 H (19-24) mmol/L ABG O2 Saturation (94-97) % Hemoglobin 11.3 L (13.0-17.5) gm/dL Potassium (3.5-5.1) mmol/L BUN 138 H* (9-20) mg/dL Creatinine 7.61 H* (0.66-1.25) mg/dL Glucose 137 H (74-99) mg/dL POC Glucose (mg/dL) (70-110) mg/dL Calcium 6.6 L (8.4-10.2) mg/dL Phosphorus 5.0 H (2.5-4.5) mg/dL Total Bilirubin 2.2 H (0.2-1.3) mg/dL AST 304 H (17-59) U/L ALT 113 H (4-49) U/L Alkaline Phosphatase 135 H (38-126) U/L Creatine Kinase 6149 H* (55-170) U/L Troponin I (0.000-0.034) ng/mL Total Protein 4.8 L (6.3-8.2) g/dL Albumin 2.3 L (3.5-5.0) g/dL Procalcitonin (0.02-0.50) ng/mL 09/06/24 Range/Units 07:57 WBC (3.8-10.6) k/uL RBC (4.30-5.90) m/uL Hgb (13.0-17.5) gm/dL Hct (39.0-53.0) % Plt Count (150-450) k/uL Neutrophils # (1.3-7.7) k/uL Lymphocytes # (1.0-4.8) k/uL ABG pH (7.35-7.45) ABG pCO2 (35-45) mmHg ABG pO2 (83-108) mmHg ABG HCO3 (21-25) mmol/L ABG Total CO2 (19-24) mmol/L ABG O2 Saturation (94-97) % Hemoglobin (13.0-17.5) gm/dL Potassium (3.5-5.1) mmol/L BUN (9-20) mg/dL Creatinine (0.66-1.25) mg/dL Glucose (74-99) mg/dL POC Glucose (mg/dL) 164 H (70-110) mg/dL Calcium (8.4-10.2) mg/dL Phosphorus (2.5-4.5) mg/dL Total Bilirubin (0.2-1.3) mg/dL AST (17-59) U/L ALT (4-49) U/L Alkaline Phosphatase (38-126) U/L Creatine Kinase (55-170) U/L Troponin I (0.000-0.034) ng/mL Total Protein (6.3-8.2) g/dL Albumin (3.5-5.0) g/dL Procalcitonin (0.02-0.50) ng/mL Microbiology - Last 24 Hours (Table) 09/05/24 12:38 Gram Stain - Preliminary Sputum 09/04/24 22:22 Urine Culture - Preliminary Urine,Voided Gram Neg Bacilli 09/04/24 17:04 Blood Culture Gram Stain - Preliminary Blood Blood Culture - Preliminary Molecular ID
[2024-09-06] MEDS: LACTATED RINGERS 1,000 ML IV SCH (10:46)
--- NOTE | 2024-09-06 11:04 | P.GSCN ---
History of Present Illness Consult date: 09/06/24 Reason for Consult: Temporary HD catheter Requesting physician: Hanh Han History of present illness: This is a 64-year-old male who was brought in by EMS after his sister had found him at home on the ground for unknown disclosed amount of time. He was admitted with rhabdomyolysis and acute kidney injury. Patient was initially on BiPAP however yesterday was still quite obtunded and he was intubated to protect his airway. History is obtained from the patient's chart and nursing. Patient has past medical history including diabetes mellitus chronic kidney disease, hyperlipidemia and hypertension. Patient's kidney function continues to deteriorate. He is still making urine however BUN and creatinine are rising. Nephrology has been following patient and consulting vascular surgery for temporary HD catheter placement. Review of Systems ROS unobtainable: due to endotracheal tube Past Medical History Past Medical History: Diabetes Mellitus, Hyperlipidemia History of Any Multi-Drug Resistant Organisms: None Reported Past Surgical History: Orthopedic Surgery, Tonsillectomy Additional Past Surgical History / Comment(s): tip of rt middle finger removed from work injury Past Anesthesia/Blood Transfusion Reactions: No Reported Reaction Past Psychological History: No Psychological Hx Reported Smoking Status: Never smoker Past Alcohol Use History: Unable to Obtain Past Drug Use History: Unable to Obtain Medications and Allergies Home Medications Medication Instructions Recorded Confirmed Type Lovastatin [Mevacor] 40 mg PO W/SUPPER 05/01/18 09/04/24 History Ferrous Sulfate [Iron (65 MG 325 mg PO DAILY 06/17/22 09/04/24 History Elemental)] Furosemide [Lasix] 40 mg PO BID@0900,1600 08/05/22 09/04/24 History hydrALAZINE HCL [Apresoline] 100 mg PO TID 08/05/22 09/04/24 History Isosorbide Mononitrate ER [Imdur] 30 mg PO DAILY 12/10/22 09/04/24 History allopurinoL [Zyloprim] 100 mg PO BID 12/10/22 09/04/24 History Famotidine [Pepcid] 20 mg PO HS PRN 05/06/23 09/04/24 History Glimepiride [Amaryl] 8 mg PO W/BRKFST 05/06/23 09/04/24 History carvediloL [Coreg] 25 mg PO BID-W/MEALS 05/06/23 09/04/24 History metFORMIN HCL ER [Glucophage XR] 500 mg PO DAILY 05/06/23 09/04/24 History Dulaglutide [Trulicity] 3 mg SQ Q7D 04/25/24 09/04/24 History amLODIPine [Norvasc] 5 mg PO DAILY 04/25/24 09/04/24 History lisinopriL [Zestril] 2.5 mg PO DAILY 04/25/24 09/04/24 History Dapagliflozin Propanediol [Farxiga] 5 mg PO DAILY 09/04/24 09/04/24 History Tamsulosin [Flomax] 0.4 mg PO HS 09/04/24 09/04/24 History calcitrioL [Rocaltrol] 0.25 mcg PO Q7D 09/04/24 09/04/24 History Allergies Allergy/AdvReac Type Severity Reaction Status Date / Time No Known Allergies Allergy Verified 09/04/24 19:37 Surgical - Exam Vital Signs Temp Pulse Resp BP Pulse Ox 97.7 F 89 24 80/60 91 L 09/04/24 16:39 09/04/24 16:39 09/04/24 16:39 09/04/24 16:39 09/04/24 16:39 General appearance: The patient is sedated and intubated.. HET: Head is normocephalic and atraumatic. Neck: Supple. Heart: Regular. Lungs: Equal expansion, on mechanical ventilation. Abdomen: Soft, nondistended. Extremities: Normal skin color and turgor. Neurological: Intubated and sedated. Results - Labs 09/06/24 04:47 09/06/24 04:47 Abnormal Lab Results - Last 24 Hours (Table) 09/05/24 09/05/24 09/05/24 Range/Units 05:30 09:52 11:27 WBC (3.8-10.6) k/uL RBC (4.30-5.90) m/uL Hgb (13.0-17.5) gm/dL Hct (39.0-53.0) % Plt Count (150-450) k/uL Neutrophils # (1.3-7.7) k/uL Lymphocytes # (1.0-4.8) k/uL ABG pH 7.49 H (7.35-7.45) ABG pCO2 (35-45) mmHg ABG pO2 321 H (83-108) mmHg ABG HCO3 27 H (21-25) mmol/L ABG Total CO2 28 H (19-24) mmol/L ABG O2 Saturation >100.0 H (94-97) % Hemoglobin 10.8 L (13.0-17.5) gm/dL Potassium (3.5-5.1) mmol/L BUN (9-20) mg/dL Creatinine (0.66-1.25) mg/dL Glucose (74-99) mg/dL POC Glucose (mg/dL) (70-110) mg/dL Calcium (8.4-10.2) mg/dL Phosphorus (2.5-4.5) mg/dL Total Bilirubin (0.2-1.3) mg/dL AST (17-59) U/L ALT (4-49) U/L Alkaline Phosphatase (38-126) U/L Creatine Kinase (55-170) U/L Troponin I 0.050 H* (0.000-0.034) ng/mL Total Protein (6.3-8.2) g/dL Albumin (3.5-5.0) g/dL Procalcitonin >100.00 H (0.02-0.50) ng/mL 09/05/24 09/05/24 09/05/24 Range/Units 11:54 12:59 13:58 WBC (3.8-10.6) k/uL RBC (4.30-5.90) m/uL Hgb (13.0-17.5) gm/dL Hct (39.0-53.0) % Plt Count (150-450) k/uL Neutrophils # (1.3-7.7) k/uL Lymphocytes # (1.0-4.8) k/uL ABG pH (7.35-7.45) ABG pCO2 (35-45) mmHg ABG pO2 (83-108) mmHg ABG HCO3 (21-25) mmol/L ABG Total CO2 (19-24) mmol/L ABG O2 Saturation (94-97) % Hemoglobin (13.0-17.5) gm/dL Potassium (3.5-5.1) mmol/L BUN (9-20) mg/dL Creatinine (0.66-1.25) mg/dL Glucose (74-99) mg/dL POC Glucose (mg/dL) 256 H 232 H 189 H (70-110) mg/dL Calcium (8.4-10.2) mg/dL Phosphorus (2.5-4.5) mg/dL Total Bilirubin (0.2-1.3) mg/dL AST (17-59) U/L ALT (4-49) U/L Alkaline Phosphatase (38-126) U/L Creatine Kinase (55-170) U/L Troponin I (0.000-0.034) ng/mL Total Protein (6.3-8.2) g/dL Albumin (3.5-5.0) g/dL Procalcitonin (0.02-0.50) ng/mL 09/05/24 09/05/24 09/05/24 Range/Units 14:24 14:24 15:57 WBC (3.8-10.6) k/uL RBC (4.30-5.90) m/uL Hgb (13.0-17.5) gm/dL Hct (39.0-53.0) % Plt Count (150-450) k/uL Neutrophils # (1.3-7.7) k/uL Lymphocytes # (1.0-4.8) k/uL ABG pH (7.35-7.45) ABG pCO2 (35-45) mmHg ABG pO2 (83-108) mmHg ABG HCO3 (21-25) mmol/L ABG Total CO2 (19-24) mmol/L ABG O2 Saturation (94-97) % Hemoglobin (13.0-17.5) gm/dL Potassium 3.1 L (3.5-5.1) mmol/L BUN 139 H* (9-20) mg/dL Creatinine 7.75 H* (0.66-1.25) mg/dL Glucose 163 H (74-99) mg/dL POC Glucose (mg/dL) 159 H (70-110) mg/dL Calcium 6.7 L (8.4-10.2) mg/dL Phosphorus (2.5-4.5) mg/dL Total Bilirubin (0.2-1.3) mg/dL AST (17-59) U/L ALT (4-49) U/L Alkaline Phosphatase (38-126) U/L Creatine Kinase (55-170) U/L Troponin I 0.044 H* (0.000-0.034) ng/mL Total Protein (6.3-8.2) g/dL Albumin (3.5-5.0) g/dL Procalcitonin (0.02-0.50) ng/mL 09/05/24 09/05/24 09/05/24 Range/Units 18:04 18:22 19:05 WBC (3.8-10.6) k/uL RBC (4.30-5.90) m/uL Hgb (13.0-17.5) gm/dL Hct (39.0-53.0) % Plt Count (150-450) k/uL Neutrophils # (1.3-7.7) k/uL Lymphocytes # (1.0-4.8) k/uL ABG pH (7.35-7.45) ABG pCO2 (35-45) mmHg ABG pO2 (83-108) mmHg ABG HCO3 (21-25) mmol/L ABG Total CO2 (19-24) mmol/L ABG O2 Saturation (94-97) % Hemoglobin (13.0-17.5) gm/dL Potassium (3.5-5.1) mmol/L BUN (9-20) mg/dL Creatinine (0.66-1.25) mg/dL Glucose (74-99) mg/dL POC Glucose (mg/dL) 45 L* 124 H 119 H (70-110) mg/dL Calcium (8.4-10.2) mg/dL Phosphorus (2.5-4.5) mg/dL Total Bilirubin (0.2-1.3) mg/dL AST (17-59) U/L ALT (4-49) U/L Alkaline Phosphatase (38-126) U/L Creatine Kinase (55-170) U/L Troponin I (0.000-0.034) ng/mL Total Protein (6.3-8.2) g/dL Albumin (3.5-5.0) g/dL Procalcitonin (0.02-0.50) ng/mL 09/05/24 09/05/24 09/05/24 Range/Units 20:12 21:04 22:17 WBC (3.8-10.6) k/uL RBC (4.30-5.90) m/uL Hgb (13.0-17.5) gm/dL Hct (39.0-53.0) % Plt Count (150-450) k/uL Neutrophils # (1.3-7.7) k/uL Lymphocytes # (1.0-4.8) k/uL ABG pH (7.35-7.45) ABG pCO2 (35-45) mmHg ABG pO2 (83-108) mmHg ABG HCO3 (21-25) mmol/L ABG Total CO2 (19-24) mmol/L ABG O2 Saturation (94-97) % Hemoglobin (13.0-17.5) gm/dL Potassium (3.5-5.1) mmol/L BUN (9-20) mg/dL Creatinine (0.66-1.25) mg/dL Glucose (74-99) mg/dL POC Glucose (mg/dL) 144 H 163 H 175 H (70-110) mg/dL Calcium (8.4-10.2) mg/dL Phosphorus (2.5-4.5) mg/dL Total Bilirubin (0.2-1.3) mg/dL AST (17-59) U/L ALT (4-49) U/L Alkaline Phosphatase (38-126) U/L Creatine Kinase (55-170) U/L Troponin I (0.000-0.034) ng/mL Total Protein (6.3-8.2) g/dL Albumin (3.5-5.0) g/dL Procalcitonin (0.02-0.50) ng/mL 09/05/24 09/06/24 09/06/24 Range/Units 23:17 00:04 01:07 WBC (3.8-10.6) k/uL RBC (4.30-5.90) m/uL Hgb (13.0-17.5) gm/dL Hct (39.0-53.0) % Plt Count (150-450) k/uL Neutrophils # (1.3-7.7) k/uL Lymphocytes # (1.0-4.8) k/uL ABG pH (7.35-7.45) ABG pCO2 (35-45) mmHg ABG pO2 (83-108) mmHg ABG HCO3 (21-25) mmol/L ABG Total CO2 (19-24) mmol/L ABG O2 Saturation (94-97) % Hemoglobin (13.0-17.5) gm/dL Potassium (3.5-5.1) mmol/L BUN (9-20) mg/dL Creatinine (0.66-1.25) mg/dL Glucose (74-99) mg/dL POC Glucose (mg/dL) 191 H 197 H 178 H (70-110) mg/dL Calcium (8.4-10.2) mg/dL Phosphorus (2.5-4.5) mg/dL Total Bilirubin (0.2-1.3) mg/dL AST (17-59) U/L ALT (4-49) U/L Alkaline Phosphatase (38-126) U/L Creatine Kinase (55-170) U/L Troponin I (0.000-0.034) ng/mL Total Protein (6.3-8.2) g/dL Albumin (3.5-5.0) g/dL Procalcitonin (0.02-0.50) ng/mL 09/06/24 09/06/24 09/06/24 Range/Units 02:09 03:07 04:15 WBC (3.8-10.6) k/uL RBC (4.30-5.90) m/uL Hgb (13.0-17.5) gm/dL Hct (39.0-53.0) % Plt Count (150-450) k/uL Neutrophils # (1.3-7.7) k/uL Lymphocytes # (1.0-4.8) k/uL ABG pH (7.35-7.45) ABG pCO2 (35-45) mmHg ABG pO2 (83-108) mmHg ABG HCO3 (21-25) mmol/L ABG Total CO2 (19-24) mmol/L ABG O2 Saturation (94-97) % Hemoglobin (13.0-17.5) gm/dL Potassium (3.5-5.1) mmol/L BUN (9-20) mg/dL Creatinine (0.66-1.25) mg/dL Glucose (74-99) mg/dL POC Glucose (mg/dL) 169 H 139 H 124 H (70-110) mg/dL Calcium (8.4-10.2) mg/dL Phosphorus (2.5-4.5) mg/dL Total Bilirubin (0.2-1.3) mg/dL AST (17-59) U/L ALT (4-49) U/L Alkaline Phosphatase (38-126) U/L Creatine Kinase (55-170) U/L Troponin I (0.000-0.034) ng/mL Total Protein (6.3-8.2) g/dL Albumin (3.5-5.0) g/dL Procalcitonin (0.02-0.50) ng/mL 09/06/24 09/06/24 09/06/24 Range/Units 04:47 04:47 05:30 WBC 13.6 H (3.8-10.6) k/uL RBC 3.75 L (4.30-5.90) m/uL Hgb 11.2 L (13.0-17.5) gm/dL Hct 33.1 L (39.0-53.0) % Plt Count 119 L (150-450) k/uL Neutrophils # 12.4 H (1.3-7.7) k/uL Lymphocytes # 0.4 L (1.0-4.8) k/uL ABG pH 7.46 H (7.35-7.45) ABG pCO2 34 L (35-45) mmHg ABG pO2 72 L (83-108) mmHg ABG HCO3 (21-25) mmol/L ABG Total CO2 25 H (19-24) mmol/L ABG O2 Saturation (94-97) % Hemoglobin 11.3 L (13.0-17.5) gm/dL Potassium (3.5-5.1) mmol/L BUN 138 H* (9-20) mg/dL Creatinine 7.61 H* (0.66-1.25) mg/dL Glucose 137 H (74-99) mg/dL POC Glucose (mg/dL) (70-110) mg/dL Calcium 6.6 L (8.4-10.2) mg/dL Phosphorus 5.0 H (2.5-4.5) mg/dL Total Bilirubin 2.2 H (0.2-1.3) mg/dL AST 304 H (17-59) U/L ALT 113 H (4-49) U/L Alkaline Phosphatase 135 H (38-126) U/L Creatine Kinase 6149 H* (55-170) U/L Troponin I (0.000-0.034) ng/mL Total Protein 4.8 L (6.3-8.2) g/dL Albumin 2.3 L (3.5-5.0) g/dL Procalcitonin (0.02-0.50) ng/mL 09/06/24 09/06/24 Range/Units 07:57 09:09 WBC (3.8-10.6) k/uL RBC (4.30-5.90) m/uL Hgb (13.0-17.5) gm/dL Hct (39.0-53.0) % Plt Count (150-450) k/uL Neutrophils # (1.3-7.7) k/uL Lymphocytes # (1.0-4.8) k/uL ABG pH (7.35-7.45) ABG pCO2 (35-45) mmHg ABG pO2 (83-108) mmHg ABG HCO3 (21-25) mmol/L ABG Total CO2 (19-24) mmol/L ABG O2 Saturation (94-97) % Hemoglobin (13.0-17.5) gm/dL Potassium (3.5-5.1) mmol/L BUN (9-20) mg/dL Creatinine (0.66-1.25) mg/dL Glucose (74-99) mg/dL POC Glucose (mg/dL) 164 H 196 H (70-110) mg/dL Calcium (8.4-10.2) mg/dL Phosphorus (2.5-4.5) mg/dL Total Bilirubin (0.2-1.3) mg/dL AST (17-59) U/L ALT (4-49) U/L Alkaline Phosphatase (38-126) U/L Creatine Kinase (55-170) U/L Troponin I (0.000-0.034) ng/mL Total Protein (6.3-8.2) g/dL Albumin (3.5-5.0) g/dL Procalcitonin (0.02-0.50) ng/mL Microbiology - Last 24 Hours (Table) 09/04/24 17:04 Blood Culture Gram Stain - Preliminary Blood Blood Culture - Preliminary Enterobacter cloacae Complex Serratia marcescens Molecular ID 09/05/24 12:38 Gram Stain - Preliminary Sputum 09/04/24 22:22 Urine Culture - Preliminary Urine,Voided Gram Neg Bacilli Diabetes panel 09/05/24 09/06/24 Range/Units 14:24 04:47 Sodium 143 143 (137-145) mmol/L Potassium 3.1 L 3.8 (3.5-5.1) mmol/L Chloride 104 107 (98-107) mmol/L Carbon Dioxide 26 23 (22-30) mmol/L BUN 139 H* 138 H* (9-20) mg/dL Creatinine 7.75 H* 7.61 H* (0.66-1.25) mg/dL Glucose 163 H 137 H (74-99) mg/dL Calcium 6.7 L 6.6 L (8.4-10.2) mg/dL AST 304 H (17-59) U/L ALT 113 H (4-49) U/L Alkaline Phosphatase 135 H (38-126) U/L Total Protein 4.8 L (6.3-8.2) g/dL Albumin 2.3 L (3.5-5.0) g/dL Calcium panel 09/05/24 09/06/24 Range/Units 14:24 04:47 Calcium 6.7 L 6.6 L (8.4-10.2) mg/dL Phosphorus 5.0 H (2.5-4.5) mg/dL Albumin 2.3 L (3.5-5.0) g/dL Pituitary panel 09/05/24 09/06/24 Range/Units 14:24 04:47 Sodium 143 143 (137-145) mmol/L Potassium 3.1 L 3.8 (3.5-5.1) mmol/L Chloride 104 107 (98-107) mmol/L Carbon Dioxide 26 23 (22-30) mmol/L BUN 139 H* 138 H* (9-20) mg/dL Creatinine 7.75 H* 7.61 H* (0.66-1.25) mg/dL Glucose 163 H 137 H (74-99) mg/dL Calcium 6.7 L 6.6 L (8.4-10.2) mg/dL Adrenal panel 09/05/24 09/06/24 Range/Units 14:24 04:47 Sodium 143 143 (137-145) mmol/L Potassium 3.1 L 3.8 (3.5-5.1) mmol/L Chloride 104 107 (98-107) mmol/L Carbon Dioxide 26 23 (22-30) mmol/L BUN 139 H* 138 H* (9-20) mg/dL Creatinine 7.75 H* 7.61 H* (0.66-1.25) mg/dL Glucose 163 H 137 H (74-99) mg/dL Calcium 6.7 L 6.6 L (8.4-10.2) mg/dL Total Bilirubin 2.2 H (0.2-1.3) mg/dL AST 304 H (17-59) U/L ALT 113 H (4-49) U/L Alkaline Phosphatase 135 H (38-126) U/L Total Protein 4.8 L (6.3-8.2) g/dL Albumin 2.3 L (3.5-5.0) g/dL Assessment and Plan Assessment: 1. Acute kidney injury requiring hemodialysis 2. Altered mental status changes 3. Rhabdomyolysis 4. Positive UTI 5. Bacteremia Plan: 1. Will plan for bedside temporary HD catheter placement 2. Hemodialysis per recommendations from nephrology 3. Rest of medical management per primary medical team and load planner Thank you for this consultation, we will continue to follow. The impression and plan of care has been dictated as directed. Dr. Santiago I performed a history and examination of this patient, discussed the same with the dictator. I agree with the dictator's note ,documented as a scribe. Any additional findings or plans will be noted.
[2024-09-06 11:29] LABS: Glucose,Whole Blood 168 mg/dL (70-110)
--- NOTE | 2024-09-06 12:00 | P.PN ---
Subjective patient is seen for follow-up for acute kidney injury. Patient remains on the vent. FiO2 at 40% Urine output at 30 -60 ml/hr. Serum creatinine remains elevated at 7.6. [place] 6149 Objective - Vital Signs Vital signs: Vital Signs Temp 99.3 F 09/06/24 08:00 Pulse 98 09/06/24 09:00 Resp 20 09/06/24 09:00 BP 95/51 09/05/24 11:00 Pulse Ox 97 09/06/24 09:00 FiO2 40 09/06/24 08:32 Intake & Output 09/05/24 09/06/24 09/06/24 18:59 06:59 18:59 Intake Total 3000.000 1617.822 523.446 Output Total 85 405 95 Balance 2915.000 1212.822 428.446 Weight 80.7 kg Intake: IV 2900 1200 400 0.9 1100 Cefepime 1 gm In Sodium 100 100 Chloride 0.9% 50 ml @ 12. 5 mls/hr IVPB DAILY MONI Rx#:[id number] Dextrose 5% in Water 1, 100 000 ml @ 130 mls/hr IV . Q8H51M MONI with Sodium Bicarb (1 Meq/ml) 150 ml Rx#:[id number] LR 1600 1200 300 Intake, IV Titration 100.000 417.822 123.446 Amount Insulin Regular 100 unit 100.000 21.35 In Sodium Chloride 0.9% 100 ml @ Titrate IV .Q0M MONI Rx#:[id number] Norepinephrine 4 mg In 296.472 123.446 Sodium Chloride 0.9% 250 ml @ 0.03 MCG/KG/MIN 8. 573 mls/hr IV .Q24H MONI Rx#:[id number] propofoL 1,000 mg In 100 Empty Bag 1 bag @ 15 MCG/ KG/MIN 6.75 mls/hr IV . [id number] MONI Rx#:[id number] Output: Urine 85 405 95 Other: Voiding Method Indwelling Catheter Indwelling Catheter Indwelling Catheter ABP, PAP, CO, CI - Last Documented Arterial Blood Pressure 111/42 - Exam patient is sedated and intubated. Examination of the heart S1 and S2 Examination of the lungs bilateral breath sounds are heard Abdomen is soft nontender Examination of lower extremities shows no significant edema - Labs CBC & Chem 7: 09/06/24 04:47 09/06/24 04:47 Labs: Abnormal Lab Results - Last 24 Hours (Table) 09/05/24 09/05/24 09/05/24 Range/Units 05:30 11:54 12:59 WBC (3.8-10.6) k/uL RBC (4.30-5.90) m/uL Hgb (13.0-17.5) gm/dL Hct (39.0-53.0) % Plt Count (150-450) k/uL Neutrophils # (1.3-7.7) k/uL Lymphocytes # (1.0-4.8) k/uL ABG pH (7.35-7.45) ABG pCO2 (35-45) mmHg ABG pO2 (83-108) mmHg ABG Total CO2 (19-24) mmol/L Hemoglobin (13.0-17.5) gm/dL Potassium (3.5-5.1) mmol/L BUN (9-20) mg/dL Creatinine (0.66-1.25) mg/dL Glucose (74-99) mg/dL POC Glucose (mg/dL) 256 H 232 H (70-110) mg/dL Calcium (8.4-10.2) mg/dL Phosphorus (2.5-4.5) mg/dL Total Bilirubin (0.2-1.3) mg/dL AST (17-59) U/L ALT (4-49) U/L Alkaline Phosphatase (38-126) U/L Creatine Kinase (55-170) U/L Troponin I (0.000-0.034) ng/mL Total Protein (6.3-8.2) g/dL Albumin (3.5-5.0) g/dL Procalcitonin >100.00 H (0.02-0.50) ng/mL 09/05/24 09/05/24 09/05/24 Range/Units 13:58 14:24 14:24 WBC (3.8-10.6) k/uL RBC (4.30-5.90) m/uL Hgb (13.0-17.5) gm/dL Hct (39.0-53.0) % Plt Count (150-450) k/uL Neutrophils # (1.3-7.7) k/uL Lymphocytes # (1.0-4.8) k/uL ABG pH (7.35-7.45) ABG pCO2 (35-45) mmHg ABG pO2 (83-108) mmHg ABG Total CO2 (19-24) mmol/L Hemoglobin (13.0-17.5) gm/dL Potassium 3.1 L (3.5-5.1) mmol/L BUN 139 H* (9-20) mg/dL Creatinine 7.75 H* (0.66-1.25) mg/dL Glucose 163 H (74-99) mg/dL POC Glucose (mg/dL) 189 H (70-110) mg/dL Calcium 6.7 L (8.4-10.2) mg/dL Phosphorus (2.5-4.5) mg/dL Total Bilirubin (0.2-1.3) mg/dL AST (17-59) U/L ALT (4-49) U/L Alkaline Phosphatase (38-126) U/L Creatine Kinase (55-170) U/L Troponin I 0.044 H* (0.000-0.034) ng/mL Total Protein (6.3-8.2) g/dL Albumin (3.5-5.0) g/dL Procalcitonin (0.02-0.50) ng/mL 09/05/24 09/05/24 09/05/24 Range/Units 15:57 18:04 18:22 WBC (3.8-10.6) k/uL RBC (4.30-5.90) m/uL Hgb (13.0-17.5) gm/dL Hct (39.0-53.0) % Plt Count (150-450) k/uL Neutrophils # (1.3-7.7) k/uL Lymphocytes # (1.0-4.8) k/uL ABG pH (7.35-7.45) ABG pCO2 (35-45) mmHg ABG pO2 (83-108) mmHg ABG Total CO2 (19-24) mmol/L Hemoglobin (13.0-17.5) gm/dL Potassium (3.5-5.1) mmol/L BUN (9-20) mg/dL Creatinine (0.66-1.25) mg/dL Glucose (74-99) mg/dL POC Glucose (mg/dL) 159 H 45 L* 124 H (70-110) mg/dL Calcium (8.4-10.2) mg/dL Phosphorus (2.5-4.5) mg/dL Total Bilirubin (0.2-1.3) mg/dL AST (17-59) U/L ALT (4-49) U/L Alkaline Phosphatase (38-126) U/L Creatine Kinase (55-170) U/L Troponin I (0.000-0.034) ng/mL Total Protein (6.3-8.2) g/dL Albumin (3.5-5.0) g/dL Procalcitonin (0.02-0.50) ng/mL 09/05/24 09/05/24 09/05/24 Range/Units 19:05 20:12 21:04 WBC (3.8-10.6) k/uL RBC (4.30-5.90) m/uL Hgb (13.0-17.5) gm/dL Hct (39.0-53.0) % Plt Count (150-450) k/uL Neutrophils # (1.3-7.7) k/uL Lymphocytes # (1.0-4.8) k/uL ABG pH (7.35-7.45) ABG pCO2 (35-45) mmHg ABG pO2 (83-108) mmHg ABG Total CO2 (19-24) mmol/L Hemoglobin (13.0-17.5) gm/dL Potassium (3.5-5.1) mmol/L BUN (9-20) mg/dL Creatinine (0.66-1.25) mg/dL Glucose (74-99) mg/dL POC Glucose (mg/dL) 119 H 144 H 163 H (70-110) mg/dL Calcium (8.4-10.2) mg/dL Phosphorus (2.5-4.5) mg/dL Total Bilirubin (0.2-1.3) mg/dL AST (17-59) U/L ALT (4-49) U/L Alkaline Phosphatase (38-126) U/L Creatine Kinase (55-170) U/L Troponin I (0.000-0.034) ng/mL Total Protein (6.3-8.2) g/dL Albumin (3.5-5.0) g/dL Procalcitonin (0.02-0.50) ng/mL 09/05/24 09/05/24 09/06/24 Range/Units 22:17 23:17 00:04 WBC (3.8-10.6) k/uL RBC (4.30-5.90) m/uL Hgb (13.0-17.5) gm/dL Hct (39.0-53.0) % Plt Count (150-450) k/uL Neutrophils # (1.3-7.7) k/uL Lymphocytes # (1.0-4.8) k/uL ABG pH (7.35-7.45) ABG pCO2 (35-45) mmHg ABG pO2 (83-108) mmHg ABG Total CO2 (19-24) mmol/L Hemoglobin (13.0-17.5) gm/dL Potassium (3.5-5.1) mmol/L BUN (9-20) mg/dL Creatinine (0.66-1.25) mg/dL Glucose (74-99) mg/dL POC Glucose (mg/dL) 175 H 191 H 197 H (70-110) mg/dL Calcium (8.4-10.2) mg/dL Phosphorus (2.5-4.5) mg/dL Total Bilirubin (0.2-1.3) mg/dL AST (17-59) U/L ALT (4-49) U/L Alkaline Phosphatase (38-126) U/L Creatine Kinase (55-170) U/L Troponin I (0.000-0.034) ng/mL Total Protein (6.3-8.2) g/dL Albumin (3.5-5.0) g/dL Procalcitonin (0.02-0.50) ng/mL 09/06/24 09/06/24 09/06/24 Range/Units 01:07 02:09 03:07 WBC (3.8-10.6) k/uL RBC (4.30-5.90) m/uL Hgb (13.0-17.5) gm/dL Hct (39.0-53.0) % Plt Count (150-450) k/uL Neutrophils # (1.3-7.7) k/uL Lymphocytes # (1.0-4.8) k/uL ABG pH (7.35-7.45) ABG pCO2 (35-45) mmHg ABG pO2 (83-108) mmHg ABG Total CO2 (19-24) mmol/L Hemoglobin (13.0-17.5) gm/dL Potassium (3.5-5.1) mmol/L BUN (9-20) mg/dL Creatinine (0.66-1.25) mg/dL Glucose (74-99) mg/dL POC Glucose (mg/dL) 178 H 169 H 139 H (70-110) mg/dL Calcium (8.4-10.2) mg/dL Phosphorus (2.5-4.5) mg/dL Total Bilirubin (0.2-1.3) mg/dL AST (17-59) U/L ALT (4-49) U/L Alkaline Phosphatase (38-126) U/L Creatine Kinase (55-170) U/L Troponin I (0.000-0.034) ng/mL Total Protein (6.3-8.2) g/dL Albumin (3.5-5.0) g/dL Procalcitonin (0.02-0.50) ng/mL 09/06/24 09/06/24 09/06/24 Range/Units 04:15 04:47 04:47 WBC 13.6 H (3.8-10.6) k/uL RBC 3.75 L (4.30-5.90) m/uL Hgb 11.2 L (13.0-17.5) gm/dL Hct 33.1 L (39.0-53.0) % Plt Count 119 L (150-450) k/uL Neutrophils # 12.4 H (1.3-7.7) k/uL Lymphocytes # 0.4 L (1.0-4.8) k/uL ABG pH (7.35-7.45) ABG pCO2 (35-45) mmHg ABG pO2 (83-108) mmHg ABG Total CO2 (19-24) mmol/L Hemoglobin (13.0-17.5) gm/dL Potassium (3.5-5.1) mmol/L BUN 138 H* (9-20) mg/dL Creatinine 7.61 H* (0.66-1.25) mg/dL Glucose 137 H (74-99) mg/dL POC Glucose (mg/dL) 124 H (70-110) mg/dL Calcium 6.6 L (8.4-10.2) mg/dL Phosphorus 5.0 H (2.5-4.5) mg/dL Total Bilirubin 2.2 H (0.2-1.3) mg/dL AST 304 H (17-59) U/L ALT 113 H (4-49) U/L Alkaline Phosphatase 135 H (38-126) U/L Creatine Kinase 6149 H* (55-170) U/L Troponin I (0.000-0.034) ng/mL Total Protein 4.8 L (6.3-8.2) g/dL Albumin 2.3 L (3.5-5.0) g/dL Procalcitonin (0.02-0.50) ng/mL 09/06/24 09/06/24 09/06/24 Range/Units 05:30 07:57 09:09 WBC (3.8-10.6) k/uL RBC (4.30-5.90) m/uL Hgb (13.0-17.5) gm/dL Hct (39.0-53.0) % Plt Count (150-450) k/uL Neutrophils # (1.3-7.7) k/uL Lymphocytes # (1.0-4.8) k/uL ABG pH 7.46 H (7.35-7.45) ABG pCO2 34 L (35-45) mmHg ABG pO2 72 L (83-108) mmHg ABG Total CO2 25 H (19-24) mmol/L Hemoglobin 11.3 L (13.0-17.5) gm/dL Potassium (3.5-5.1) mmol/L BUN (9-20) mg/dL Creatinine (0.66-1.25) mg/dL Glucose (74-99) mg/dL POC Glucose (mg/dL) 164 H 196 H (70-110) mg/dL Calcium (8.4-10.2) mg/dL Phosphorus (2.5-4.5) mg/dL Total Bilirubin (0.2-1.3) mg/dL AST (17-59) U/L ALT (4-49) U/L Alkaline Phosphatase (38-126) U/L Creatine Kinase (55-170) U/L Troponin I (0.000-0.034) ng/mL Total Protein (6.3-8.2) g/dL Albumin (3.5-5.0) g/dL Procalcitonin (0.02-0.50) ng/mL 09/06/24 Range/Units 11:28 WBC (3.8-10.6) k/uL RBC (4.30-5.90) m/uL Hgb (13.0-17.5) gm/dL Hct (39.0-53.0) % Plt Count (150-450) k/uL Neutrophils # (1.3-7.7) k/uL Lymphocytes # (1.0-4.8) k/uL ABG pH (7.35-7.45) ABG pCO2 (35-45) mmHg ABG pO2 (83-108) mmHg ABG Total CO2 (19-24) mmol/L Hemoglobin (13.0-17.5) gm/dL Potassium (3.5-5.1) mmol/L BUN (9-20) mg/dL Creatinine (0.66-1.25) mg/dL Glucose (74-99) mg/dL POC Glucose (mg/dL) 168 H (70-110) mg/dL Calcium (8.4-10.2) mg/dL Phosphorus (2.5-4.5) mg/dL Total Bilirubin (0.2-1.3) mg/dL AST (17-59) U/L ALT (4-49) U/L Alkaline Phosphatase (38-126) U/L Creatine Kinase (55-170) U/L Troponin I (0.000-0.034) ng/mL Total Protein (6.3-8.2) g/dL Albumin (3.5-5.0) g/dL Procalcitonin (0.02-0.50) ng/mL Microbiology - Last 24 Hours (Table) 09/04/24 17:04 Blood Culture Gram Stain - Preliminary Blood Blood Culture - Preliminary Enterobacter cloacae Complex Serratia marcescens Molecular ID 09/05/24 12:38 Gram Stain - Preliminary Sputum 09/04/24 22:22 Urine Culture - Preliminary Urine,Voided Gram Neg Bacilli Assessment and Plan Assessment: 1. Acute kidney injury ATN from hypotension, underlying infection and rhabdomyolysis, initially nonoliguric currently oliguric secondary to worsening hypotension. Maintained on vasopressors now and receiving IV fluid boluses. UA is suggestive of UTI. We will proceed with renal replacement therapy as there is no improvement in renal function. 2. Anion gap metabolic acidosis secondary to diabetic ketoacidosis and acute kidney injury, status post bicarb drip 3. Rhabdo my lysis with CK at 9320 4. Acute hypoxic respiratory failure 5. Hyperkalemia associated with acute kidney injury, metabolic acidosis and rhabdomyolysis 6. History of right renal mass with previous MRI in 2022 showing enlarging lesion in the right kidney. This was not seen clearly on ultrasound performed this admission. Patient will need further evaluation and follow-up down the road. Plan: proceed with renal replacement therapy and consult vascular surgery for dialysis catheter placement. We will plan for first treatment today Continue with IV fluids Check ultrasound of the kidneys Continue with antibiotics and pressor support Further evaluation of right renal mass down the road
--- NOTE | 2024-09-06 12:02 | P.OP ---
Date of Procedure: 09/06/24 Description of Procedure: SURGEON: Natividad Santiago DO GLASS CARRIER: None PREOPERATIVE DIAGNOSIS: CON, need for dialysis POSTOPERATIVE DIAGNOSIS: Same OPERATION: Ultrasound-guided right common femoral vein access, placement of temporary dialysis catheter in the central venous system DESCRIPTION OF PROCEDURE: The groin was prepped and draped in usual sterile fashion. A preprocedure timeout was performed, all parties were in agreement. An ultrasound was utilized and the right common femoral vein was identified. It was patent and compressible. The skin overlying the vein was anesthetized with 1% lidocaine plain. A multipurpose needle was utilized and the femoral vein was accessed under ultrasound guidance on first attempt with return of dark venous, nonpulsatile blood. The guidewire was passed easily. Serial dilation was performed of the subcutaneous tissues. The catheter was placed and secured with suture. It aspirated and flushed freely. A dressing including a Biopatch was applied. The patient tolerated the procedure well.
--- NOTE | 2024-09-06 15:13 | P.PN ---
Subjective Progress Note Date: 09/06/24 Principal diagnosis: Reason for follow-up is sepsis and bacteremia Patient is a 64-year-old male with a past medical history significant for diabetes mellitus hyperlipidemia, chronic kidney disease patient has been brought to the hospital after the patient was found on the ground for unknown amount of time patient was noted to be septic requiring admission to the ICU on the ventilator subsequent did have a positive blood culture with Enterobacter. On today's evaluation that is 09/06/2024,the patient did have a low-grade fever 100.3 at noon and also temperature of 101 F last night patient remains to be on the ventilator FiO2 is currently at 40% no significant purulent secretion through the ET or any other changes reported by nursing staff. Patient white count is down to 13.6, creatinine 7.61 liver enzymes elevated abdominal bladder ultrasound did not made any comment on the liver gallbladder Objective - Vital Signs Vital signs: Vital Signs Temp 100.3 F H 09/06/24 12:00 Pulse 92 09/06/24 12:08 Resp 30 H 09/06/24 12:00 BP 95/51 09/05/24 11:00 Pulse Ox 97 09/06/24 12:00 FiO2 40 09/06/24 12:00 Intake & Output 09/05/24 09/06/24 09/06/24 18:59 06:59 18:59 Intake Total 3000.000 1617.822 943.446 Output Total 85 405 155 Balance 2915.000 1212.822 788.446 Weight 80.7 kg Intake: IV 2900 1200 700 0.9 1100 Cefepime 1 gm In Sodium 100 100 Chloride 0.9% 50 ml @ 12. 5 mls/hr IVPB DAILY MONI Rx#:[id number] Dextrose 5% in Water 1, 100 000 ml @ 130 mls/hr IV . Q8H51M MONI with Sodium Bicarb (1 Meq/ml) 150 ml Rx#:[id number] LR 1600 1200 600 Intake, IV Titration 100.000 417.822 223.446 Amount Insulin Regular 100 unit 100.000 21.35 In Sodium Chloride 0.9% 100 ml @ Titrate IV .Q0M MONI Rx#:[id number] Norepinephrine 4 mg In 296.472 123.446 Sodium Chloride 0.9% 250 ml @ 0.03 MCG/KG/MIN 8. 573 mls/hr IV .Q24H MONI Rx#:[id number] propofoL 1,000 mg In 100 100 Empty Bag 1 bag @ 15 MCG/ KG/MIN 6.75 mls/hr IV . [id number] MONI Rx#:[id number] Tube Feeding 20 Output: Urine 85 405 155 Other: Voiding Method Indwelling Catheter Indwelling Catheter Indwelling Catheter ABP, PAP, CO, CI - Last Documented Arterial Blood Pressure 130/62 - Exam GENERAL DESCRIPTION: An elderly male intubated on the vent RESPIRATORY SYSTEM: Unlabored breathing , decreased breath sounds at bases HEART: S1 S2 regular rate and rhythm , ABDOMEN: Soft , no tenderness EXTREMITIES: No edema feet - Labs CBC & Chem 7: 09/06/24 04:47 09/06/24 04:47 Labs: Abnormal Lab Results - Last 24 Hours (Table) 09/05/24 09/05/24 09/05/24 Range/Units 05:30 12:59 13:58 WBC (3.8-10.6) k/uL RBC (4.30-5.90) m/uL Hgb (13.0-17.5) gm/dL Hct (39.0-53.0) % Plt Count (150-450) k/uL Neutrophils # (1.3-7.7) k/uL Lymphocytes # (1.0-4.8) k/uL ABG pH (7.35-7.45) ABG pCO2 (35-45) mmHg ABG pO2 (83-108) mmHg ABG Total CO2 (19-24) mmol/L Hemoglobin (13.0-17.5) gm/dL Potassium (3.5-5.1) mmol/L BUN (9-20) mg/dL Creatinine (0.66-1.25) mg/dL Glucose (74-99) mg/dL POC Glucose (mg/dL) 232 H 189 H (70-110) mg/dL Calcium (8.4-10.2) mg/dL Phosphorus (2.5-4.5) mg/dL Total Bilirubin (0.2-1.3) mg/dL AST (17-59) U/L ALT (4-49) U/L Alkaline Phosphatase (38-126) U/L Creatine Kinase (55-170) U/L Troponin I (0.000-0.034) ng/mL Total Protein (6.3-8.2) g/dL Albumin (3.5-5.0) g/dL Procalcitonin >100.00 H (0.02-0.50) ng/mL 09/05/24 09/05/24 09/05/24 Range/Units 14:24 14:24 15:57 WBC (3.8-10.6) k/uL RBC (4.30-5.90) m/uL Hgb (13.0-17.5) gm/dL Hct (39.0-53.0) % Plt Count (150-450) k/uL Neutrophils # (1.3-7.7) k/uL Lymphocytes # (1.0-4.8) k/uL ABG pH (7.35-7.45) ABG pCO2 (35-45) mmHg ABG pO2 (83-108) mmHg ABG Total CO2 (19-24) mmol/L Hemoglobin (13.0-17.5) gm/dL Potassium 3.1 L (3.5-5.1) mmol/L BUN 139 H* (9-20) mg/dL Creatinine 7.75 H* (0.66-1.25) mg/dL Glucose 163 H (74-99) mg/dL POC Glucose (mg/dL) 159 H (70-110) mg/dL Calcium 6.7 L (8.4-10.2) mg/dL Phosphorus (2.5-4.5) mg/dL Total Bilirubin (0.2-1.3) mg/dL AST (17-59) U/L ALT (4-49) U/L Alkaline Phosphatase (38-126) U/L Creatine Kinase (55-170) U/L Troponin I 0.044 H* (0.000-0.034) ng/mL Total Protein (6.3-8.2) g/dL Albumin (3.5-5.0) g/dL Procalcitonin (0.02-0.50) ng/mL 09/05/24 09/05/24 09/05/24 Range/Units 18:04 18:22 19:05 WBC (3.8-10.6) k/uL RBC (4.30-5.90) m/uL Hgb (13.0-17.5) gm/dL Hct (39.0-53.0) % Plt Count (150-450) k/uL Neutrophils # (1.3-7.7) k/uL Lymphocytes # (1.0-4.8) k/uL ABG pH (7.35-7.45) ABG pCO2 (35-45) mmHg ABG pO2 (83-108) mmHg ABG Total CO2 (19-24) mmol/L Hemoglobin (13.0-17.5) gm/dL Potassium (3.5-5.1) mmol/L BUN (9-20) mg/dL Creatinine (0.66-1.25) mg/dL Glucose (74-99) mg/dL POC Glucose (mg/dL) 45 L* 124 H 119 H (70-110) mg/dL Calcium (8.4-10.2) mg/dL Phosphorus (2.5-4.5) mg/dL Total Bilirubin (0.2-1.3) mg/dL AST (17-59) U/L ALT (4-49) U/L Alkaline Phosphatase (38-126) U/L Creatine Kinase (55-170) U/L Troponin I (0.000-0.034) ng/mL Total Protein (6.3-8.2) g/dL Albumin (3.5-5.0) g/dL Procalcitonin (0.02-0.50) ng/mL 09/05/24 09/05/24 09/05/24 Range/Units 20:12 21:04 22:17 WBC (3.8-10.6) k/uL RBC (4.30-5.90) m/uL Hgb (13.0-17.5) gm/dL Hct (39.0-53.0) % Plt Count (150-450) k/uL Neutrophils # (1.3-7.7) k/uL Lymphocytes # (1.0-4.8) k/uL ABG pH (7.35-7.45) ABG pCO2 (35-45) mmHg ABG pO2 (83-108) mmHg ABG Total CO2 (19-24) mmol/L Hemoglobin (13.0-17.5) gm/dL Potassium (3.5-5.1) mmol/L BUN (9-20) mg/dL Creatinine (0.66-1.25) mg/dL Glucose (74-99) mg/dL POC Glucose (mg/dL) 144 H 163 H 175 H (70-110) mg/dL Calcium (8.4-10.2) mg/dL Phosphorus (2.5-4.5) mg/dL Total Bilirubin (0.2-1.3) mg/dL AST (17-59) U/L ALT (4-49) U/L Alkaline Phosphatase (38-126) U/L Creatine Kinase (55-170) U/L Troponin I (0.000-0.034) ng/mL Total Protein (6.3-8.2) g/dL Albumin (3.5-5.0) g/dL Procalcitonin (0.02-0.50) ng/mL 09/05/24 09/06/24 09/06/24 Range/Units 23:17 00:04 01:07 WBC (3.8-10.6) k/uL RBC (4.30-5.90) m/uL Hgb (13.0-17.5) gm/dL Hct (39.0-53.0) % Plt Count (150-450) k/uL Neutrophils # (1.3-7.7) k/uL Lymphocytes # (1.0-4.8) k/uL ABG pH (7.35-7.45) ABG pCO2 (35-45) mmHg ABG pO2 (83-108) mmHg ABG Total CO2 (19-24) mmol/L Hemoglobin (13.0-17.5) gm/dL Potassium (3.5-5.1) mmol/L BUN (9-20) mg/dL Creatinine (0.66-1.25) mg/dL Glucose (74-99) mg/dL POC Glucose (mg/dL) 191 H 197 H 178 H (70-110) mg/dL Calcium (8.4-10.2) mg/dL Phosphorus (2.5-4.5) mg/dL Total Bilirubin (0.2-1.3) mg/dL AST (17-59) U/L ALT (4-49) U/L Alkaline Phosphatase (38-126) U/L Creatine Kinase (55-170) U/L Troponin I (0.000-0.034) ng/mL Total Protein (6.3-8.2) g/dL Albumin (3.5-5.0) g/dL Procalcitonin (0.02-0.50) ng/mL 09/06/24 09/06/24 09/06/24 Range/Units 02:09 03:07 04:15 WBC (3.8-10.6) k/uL RBC (4.30-5.90) m/uL Hgb (13.0-17.5) gm/dL Hct (39.0-53.0) % Plt Count (150-450) k/uL Neutrophils # (1.3-7.7) k/uL Lymphocytes # (1.0-4.8) k/uL ABG pH (7.35-7.45) ABG pCO2 (35-45) mmHg ABG pO2 (83-108) mmHg ABG Total CO2 (19-24) mmol/L Hemoglobin (13.0-17.5) gm/dL Potassium (3.5-5.1) mmol/L BUN (9-20) mg/dL Creatinine (0.66-1.25) mg/dL Glucose (74-99) mg/dL POC Glucose (mg/dL) 169 H 139 H 124 H (70-110) mg/dL Calcium (8.4-10.2) mg/dL Phosphorus (2.5-4.5) mg/dL Total Bilirubin (0.2-1.3) mg/dL AST (17-59) U/L ALT (4-49) U/L Alkaline Phosphatase (38-126) U/L Creatine Kinase (55-170) U/L Troponin I (0.000-0.034) ng/mL Total Protein (6.3-8.2) g/dL Albumin (3.5-5.0) g/dL Procalcitonin (0.02-0.50) ng/mL 09/06/24 09/06/24 09/06/24 Range/Units 04:47 04:47 05:30 WBC 13.6 H (3.8-10.6) k/uL RBC 3.75 L (4.30-5.90) m/uL Hgb 11.2 L (13.0-17.5) gm/dL Hct 33.1 L (39.0-53.0) % Plt Count 119 L (150-450) k/uL Neutrophils # 12.4 H (1.3-7.7) k/uL Lymphocytes # 0.4 L (1.0-4.8) k/uL ABG pH 7.46 H (7.35-7.45) ABG pCO2 34 L (35-45) mmHg ABG pO2 72 L (83-108) mmHg ABG Total CO2 25 H (19-24) mmol/L Hemoglobin 11.3 L (13.0-17.5) gm/dL Potassium (3.5-5.1) mmol/L BUN 138 H* (9-20) mg/dL Creatinine 7.61 H* (0.66-1.25) mg/dL Glucose 137 H (74-99) mg/dL POC Glucose (mg/dL) (70-110) mg/dL Calcium 6.6 L (8.4-10.2) mg/dL Phosphorus 5.0 H (2.5-4.5) mg/dL Total Bilirubin 2.2 H (0.2-1.3) mg/dL AST 304 H (17-59) U/L ALT 113 H (4-49) U/L Alkaline Phosphatase 135 H (38-126) U/L Creatine Kinase 6149 H* (55-170) U/L Troponin I (0.000-0.034) ng/mL Total Protein 4.8 L (6.3-8.2) g/dL Albumin 2.3 L (3.5-5.0) g/dL Procalcitonin (0.02-0.50) ng/mL 09/06/24 09/06/24 09/06/24 Range/Units 07:57 09:09 11:28 WBC (3.8-10.6) k/uL RBC (4.30-5.90) m/uL Hgb (13.0-17.5) gm/dL Hct (39.0-53.0) % Plt Count (150-450) k/uL Neutrophils # (1.3-7.7) k/uL Lymphocytes # (1.0-4.8) k/uL ABG pH (7.35-7.45) ABG pCO2 (35-45) mmHg ABG pO2 (83-108) mmHg ABG Total CO2 (19-24) mmol/L Hemoglobin (13.0-17.5) gm/dL Potassium (3.5-5.1) mmol/L BUN (9-20) mg/dL Creatinine (0.66-1.25) mg/dL Glucose (74-99) mg/dL POC Glucose (mg/dL) 164 H 196 H 168 H (70-110) mg/dL Calcium (8.4-10.2) mg/dL Phosphorus (2.5-4.5) mg/dL Total Bilirubin (0.2-1.3) mg/dL AST (17-59) U/L ALT (4-49) U/L Alkaline Phosphatase (38-126) U/L Creatine Kinase (55-170) U/L Troponin I (0.000-0.034) ng/mL Total Protein (6.3-8.2) g/dL Albumin (3.5-5.0) g/dL Procalcitonin (0.02-0.50) ng/mL Microbiology - Last 24 Hours (Table) 09/05/24 12:38 Gram Stain - Preliminary Sputum Sputum Culture - Preliminary 09/04/24 17:04 Blood Culture Gram Stain - Preliminary Blood Blood Culture - Preliminary Enterobacter cloacae Complex Serratia marcescens Molecular ID 09/04/24 22:22 Urine Culture - Preliminary Urine,Voided Gram Neg Bacilli Assessment and Plan (1) Sepsis Current Visit: Yes Status: Acute Code(s): A41.9 - SEPSIS, UNSPECIFIED ORGANISM SNOMED Code(s): 67932388 (2) Pneumonia Current Visit: Yes Status: Acute Code(s): J18.9 - PNEUMONIA, UNSPECIFIED ORGANISM SNOMED Code(s): 813473788 (3) UTI (urinary tract infection) Current Visit: No Status: Acute Code(s): N39.0 - URINARY TRACT INFECTION, SITE NOT SPECIFIED SNOMED Code(s): 75982373 Plan: 1patient with sepsis in this patient who did have a fever hyortension requiring pressor support maintaining criteria for SIRS source is likely UTI pneumonia not entirely excluded 2-blood culture came back positive with Enterobacter and Serratia 3-patient antibiotic adjusted to cefepime appropriately will benefit from CT abdominal pelvis once stable to rule out intra-abdominal source keeping in mind polymicrobial bacteremia Dictation was produced using [employer] dictation software. please excuse any grammatical, word or spelling errors. Time with Patient: Less than 30
[2024-09-06 16:15] LABS: Glucose,Whole Blood 143 mg/dL (70-110)
--- NOTE | 2024-09-06 16:42 | P.PN ---
Subjective Progress Note Date: 09/06/24 This is a 64-year-old male with medical history significant for hyperlipidemia, diabetes mellitus, heart failure, chronic kidney disease, hypertension. Medical history is obtained from the patient's sister who is at the bedside. Patient is currently on the mechanical ventilator. Patient presented to the hospital yesterday afternoon after being found on the ground responsive by family. Sister states that she goes over to the patient's house every Tuesday to set up his medications for the week. Patient had another family member in the room states that they had spoken over the phone on . When patient's sister arrived to the house on Tuesday after not hearing from him for a few days she found him on the ground unresponsive and states that none of his medications from his pack were taken on Tuesday or Tuesday. This brought into the hospital by ambulance. He is currently intubated and sedated on the mechanical ventilator. Chest x-ray reveals mild linear infiltrate within the mid left lung may be atelectasis or early pneumonia. EKG reveals normal sinus rhythm heart rate of 88 EKG reads as possible right ventricular hypertrophy with inferior SC probably old and an anterior lateral SC of indeterminate age. Brain CT and cervical spine CT revealed no acute changes no evidence for any fracture or stroke. Initial blood work reveals a white blood cell count of 17.3, sodium level of 136 potassium of 5.7, BUN of 137, creatinine of 8.82, blood glucose of 578, lactic acid of 2.6, Phos level 10.6, magnesium of 2.7, AST of 150 ALT of 71, creat kinase of 7555, troponin level is 0.043, proBNP of 4510. Urinalysis is completed with brown turbid urine with greater than 182 RBCs greater than 182 WBCs with many bacteria. His urine drug toxicology is negative serum alcohol is less than 10 he is acetone positive. His viral panel and Legionella screenings are all negative. Was admitted to the hospital intensive care unit secondary to the diabetic ketoacidosis and rhabdomyolysis. There is concern for underlying infection or sepsis he is started empirically on IV azithromycin and IV ceftriaxone. Patient was fluid resuscitated with 2 L of normal saline given in the ER and an infusion of normal saline at 130 mL/h. He did have a repeat chest x-ray completed this morning which is concerning for congestive heart failure and was given a dose of IV Lasix. Multiple consults in place including nephrology and pulmonary secondary school registrar. Echocardiogram has been ordered and is currently pending at this time. 09/06/2024 Patient is seen in follow-up in the ICU continues on mechanical ventilation with an FiO2 of 40% and PEEP is 5 maintaining good oxygen saturations. Patient's kidney functions worsened showing a creatinine of 7.61 with a BUN of 138 and vascular surgery was consulted and patient is being initiated on hemodialysis. Creatinine kinase is trending down and currently 6149, maintained on fluids. Insulin drip has been placed on hold and will initiate sliding scale with Accu- Cheks per protocol. Patient continues on pressor support along with sedation. Patient continues on IV antibiotics with infectious disease following as well. REVIEW OF SYSTEMS: Unable to complete review of systems at this time patient is currently intubated and sedated. PHYSICAL EXAMINATION: GENERAL: The patient is sedated and on the mechanical ventilator, FiO2 is 40% with a PEEP of 5. Not in any acute distress. Well developed, well nourished. Ill-appearing, obese, elderly appearing HEENT: Pupils are round and equally reacting to light. EOMI. No scleral icterus. No conjunctival pallor. Normocephalic, atraumatic. No pharyngeal erythema. No thyromegaly. CARDIOVASCULAR: S1 and S2 muffled, tachy PULMONARY: Diminished breath sounds bilaterally otherwise chest is clear to auscultation, no wheezing or crackles. ABDOMEN: Soft, nontender, nondistended, normoactive bowel sounds. No palpable organomegaly. Bruise on the left upper abdomen. MUSCULOSKELETAL: No joint swelling or deformity. EXTREMITIES: No cyanosis, clubbing, or pedal edema. NEUROLOGICAL: Unable to completely assess as patient is on mechanical ventilation and sedated SKIN: No rashes. Pale Assessment and plan Altered mental status secondary to acute metabolic encephalopathy Sepsis with fever and lactic acidosis Acute hypoxemic respiratory failure requiring mechanical intubation, FiO2 is 40% with a PEEP of 5 Diabetic ketoacidosis, improving and patient being transitioned off insulin drip will continue sliding scale along with long-acting if needed Anion gap metabolic acidosis Acute kidney injury acute tubular necrosis secondary to sepsis, worsening kidney functions now requiring hemodialysis, dialysis catheter being placed on 09/06/2024 Acute rhabdomyolysis secondary to prolonged downtime with CK of 7555 on admission Acute on chronic diastolic heart failure Chronic Kidney disease Troponin elevation likely type II SC, although need to rule out NSTEMI Transaminitis Abnormal urinalysis could be due to dehydration and acute tubular necrosis unable to rule out an acute urinary tract infection at this time as his urinalysis is significantly abnormal. Leukocytosis Diabetes mellitus type 2 uncontrolled with DKA Hyperlipidemia Hypertension maintained on lisinopril which is currently being held secondary to the renal dysfunction, currently hypotensive, requiring pressor support GI prophylaxis DVT prophylaxis Full Code Plan: Nephrology consultation and has consulted vascular surgery for hemodialysis catheter placement for emergent dialysis Hold nephrotoxic home medications including metformin, lisinopril Hold Farxiga due to the renal dysfunction Echocardiogram was done showing a reduced EF of 30 to 35% with no pericardial effusion with aortic valve sclerosis Trend troponin levels and consult cardiology Blood culture and urine cultures are taken and pending infectious diseases following and appreciate input and recommendations. Continue with IV cefepime Repeat blood work in the AM The impression and plan of care has been dictated by Eneida James, Nurse Practitioner as directed. Dr. Iwona MD I have performed a history and physical examination and medical decision making of this patient, discussed the same with the dictator, and agree with the dictators assessment and plan as written, documented as a scribe. Based on total visit time, I have performed more than 50% of this visit. Objective - Vital Signs Vital signs: Vital Signs Temp 99.6 F 09/06/24 04:00 Pulse 92 09/06/24 08:50 Resp 23 09/06/24 07:00 BP 95/51 09/05/24 11:00 Pulse Ox 96 09/06/24 07:00 FiO2 40 09/06/24 08:32 Intake & Output 09/05/24 09/06/24 09/06/24 18:59 06:59 18:59 Intake Total 3000.000 1617.822 523.446 Output Total 85 405 95 Balance 2915.000 1212.822 428.446 Weight 80.7 kg Intake: IV 2900 1200 400 0.9 1100 Cefepime 1 gm In Sodium 100 100 Chloride 0.9% 50 ml @ 12. 5 mls/hr IVPB DAILY MONI Rx#:[id number] Dextrose 5% in Water 1, 100 000 ml @ 130 mls/hr IV . Q8H51M MONI with Sodium Bicarb (1 Meq/ml) 150 ml Rx#:[id number] LR 1600 1200 300 Intake, IV Titration 100.000 417.822 123.446 Amount Insulin Regular 100 unit 100.000 21.35 In Sodium Chloride 0.9% 100 ml @ Titrate IV .Q0M MONI Rx#:[id number] Norepinephrine 4 mg In 296.472 123.446 Sodium Chloride 0.9% 250 ml @ 0.03 MCG/KG/MIN 8. 573 mls/hr IV .Q24H MONI Rx#:[id number] propofoL 1,000 mg In 100 Empty Bag 1 bag @ 15 MCG/ KG/MIN 6.75 mls/hr IV . [id number] MONI Rx#:[id number] Output: Urine 85 405 95 Other: Voiding Method Indwelling Catheter Indwelling Catheter Indwelling Catheter ABP, PAP, CO, CI - Last Documented Arterial Blood Pressure 113/52 - Labs CBC & Chem 7: 09/06/24 04:47 09/06/24 04:47 Labs: Abnormal Lab Results - Last 24 Hours (Table) 09/05/24 09/05/24 09/05/24 Range/Units 05:30 09:47 09:52 WBC (3.8-10.6) k/uL RBC (4.30-5.90) m/uL Hgb (13.0-17.5) gm/dL Hct (39.0-53.0) % Plt Count (150-450) k/uL Neutrophils # (1.3-7.7) k/uL Lymphocytes # (1.0-4.8) k/uL ABG pH (7.35-7.45) ABG pCO2 (35-45) mmHg ABG pO2 (83-108) mmHg ABG HCO3 (21-25) mmol/L ABG Total CO2 (19-24) mmol/L ABG O2 Saturation (94-97) % Hemoglobin (13.0-17.5) gm/dL Potassium (3.5-5.1) mmol/L BUN (9-20) mg/dL Creatinine (0.66-1.25) mg/dL Glucose (74-99) mg/dL POC Glucose (mg/dL) 122 H (70-110) mg/dL Calcium (8.4-10.2) mg/dL Phosphorus (2.5-4.5) mg/dL Total Bilirubin (0.2-1.3) mg/dL AST (17-59) U/L ALT (4-49) U/L Alkaline Phosphatase (38-126) U/L Creatine Kinase (55-170) U/L Troponin I 0.050 H* (0.000-0.034) ng/mL Total Protein (6.3-8.2) g/dL Albumin (3.5-5.0) g/dL Procalcitonin >100.00 H (0.02-0.50) ng/mL 09/05/24 09/05/24 09/05/24 Range/Units 09:54 11:27 11:54 WBC (3.8-10.6) k/uL RBC (4.30-5.90) m/uL Hgb (13.0-17.5) gm/dL Hct (39.0-53.0) % Plt Count (150-450) k/uL Neutrophils # (1.3-7.7) k/uL Lymphocytes # (1.0-4.8) k/uL ABG pH 7.49 H (7.35-7.45) ABG pCO2 (35-45) mmHg ABG pO2 321 H (83-108) mmHg ABG HCO3 27 H (21-25) mmol/L ABG Total CO2 28 H (19-24) mmol/L ABG O2 Saturation >100.0 H (94-97) % Hemoglobin 10.8 L (13.0-17.5) gm/dL Potassium (3.5-5.1) mmol/L BUN (9-20) mg/dL Creatinine (0.66-1.25) mg/dL Glucose (74-99) mg/dL POC Glucose (mg/dL) 140 H 256 H (70-110) mg/dL Calcium (8.4-10.2) mg/dL Phosphorus (2.5-4.5) mg/dL Total Bilirubin (0.2-1.3) mg/dL AST (17-59) U/L ALT (4-49) U/L Alkaline Phosphatase (38-126) U/L Creatine Kinase (55-170) U/L Troponin I (0.000-0.034) ng/mL Total Protein (6.3-8.2) g/dL Albumin (3.5-5.0) g/dL Procalcitonin (0.02-0.50) ng/mL 09/05/24 09/05/24 09/05/24 Range/Units 12:59 13:58 14:24 WBC (3.8-10.6) k/uL RBC (4.30-5.90) m/uL Hgb (13.0-17.5) gm/dL Hct (39.0-53.0) % Plt Count (150-450) k/uL Neutrophils # (1.3-7.7) k/uL Lymphocytes # (1.0-4.8) k/uL ABG pH (7.35-7.45) ABG pCO2 (35-45) mmHg ABG pO2 (83-108) mmHg ABG HCO3 (21-25) mmol/L ABG Total CO2 (19-24) mmol/L ABG O2 Saturation (94-97) % Hemoglobin (13.0-17.5) gm/dL Potassium (3.5-5.1) mmol/L BUN (9-20) mg/dL Creatinine (0.66-1.25) mg/dL Glucose (74-99) mg/dL POC Glucose (mg/dL) 232 H 189 H (70-110) mg/dL Calcium (8.4-10.2) mg/dL Phosphorus (2.5-4.5) mg/dL Total Bilirubin (0.2-1.3) mg/dL AST (17-59) U/L ALT (4-49) U/L Alkaline Phosphatase (38-126) U/L Creatine Kinase (55-170) U/L Troponin I 0.044 H* (0.000-0.034) ng/mL Total Protein (6.3-8.2) g/dL Albumin (3.5-5.0) g/dL Procalcitonin (0.02-0.50) ng/mL 09/05/24 09/05/24 09/05/24 Range/Units 14:24 15:57 18:04 WBC (3.8-10.6) k/uL RBC (4.30-5.90) m/uL Hgb (13.0-17.5) gm/dL Hct (39.0-53.0) % Plt Count (150-450) k/uL Neutrophils # (1.3-7.7) k/uL Lymphocytes # (1.0-4.8) k/uL ABG pH (7.35-7.45) ABG pCO2 (35-45) mmHg ABG pO2 (83-108) mmHg ABG HCO3 (21-25) mmol/L ABG Total CO2 (19-24) mmol/L ABG O2 Saturation (94-97) % Hemoglobin (13.0-17.5) gm/dL Potassium 3.1 L (3.5-5.1) mmol/L BUN 139 H* (9-20) mg/dL Creatinine 7.75 H* (0.66-1.25) mg/dL Glucose 163 H (74-99) mg/dL POC Glucose (mg/dL) 159 H 45 L* (70-110) mg/dL Calcium 6.7 L (8.4-10.2) mg/dL Phosphorus (2.5-4.5) mg/dL Total Bilirubin (0.2-1.3) mg/dL AST (17-59) U/L ALT (4-49) U/L Alkaline Phosphatase (38-126) U/L Creatine Kinase (55-170) U/L Troponin I (0.000-0.034) ng/mL Total Protein (6.3-8.2) g/dL Albumin (3.5-5.0) g/dL Procalcitonin (0.02-0.50) ng/mL 09/05/24 09/05/24 09/05/24 Range/Units 18:22 19:05 20:12 WBC (3.8-10.6) k/uL RBC (4.30-5.90) m/uL Hgb (13.0-17.5) gm/dL Hct (39.0-53.0) % Plt Count (150-450) k/uL Neutrophils # (1.3-7.7) k/uL Lymphocytes # (1.0-4.8) k/uL ABG pH (7.35-7.45) ABG pCO2 (35-45) mmHg ABG pO2 (83-108) mmHg ABG HCO3 (21-25) mmol/L ABG Total CO2 (19-24) mmol/L ABG O2 Saturation (94-97) % Hemoglobin (13.0-17.5) gm/dL Potassium (3.5-5.1) mmol/L BUN (9-20) mg/dL Creatinine (0.66-1.25) mg/dL Glucose (74-99) mg/dL POC Glucose (mg/dL) 124 H 119 H 144 H (70-110) mg/dL Calcium (8.4-10.2) mg/dL Phosphorus (2.5-4.5) mg/dL Total Bilirubin (0.2-1.3) mg/dL AST (17-59) U/L ALT (4-49) U/L Alkaline Phosphatase (38-126) U/L Creatine Kinase (55-170) U/L Troponin I (0.000-0.034) ng/mL Total Protein (6.3-8.2) g/dL Albumin (3.5-5.0) g/dL Procalcitonin (0.02-0.50) ng/mL 09/05/24 09/05/24 09/05/24 Range/Units 21:04 22:17 23:17 WBC (3.8-10.6) k/uL RBC (4.30-5.90) m/uL Hgb (13.0-17.5) gm/dL Hct (39.0-53.0) % Plt Count (150-450) k/uL Neutrophils # (1.3-7.7) k/uL Lymphocytes # (1.0-4.8) k/uL ABG pH (7.35-7.45) ABG pCO2 (35-45) mmHg ABG pO2 (83-108) mmHg ABG HCO3 (21-25) mmol/L ABG Total CO2 (19-24) mmol/L ABG O2 Saturation (94-97) % Hemoglobin (13.0-17.5) gm/dL Potassium (3.5-5.1) mmol/L BUN (9-20) mg/dL Creatinine (0.66-1.25) mg/dL Glucose (74-99) mg/dL POC Glucose (mg/dL) 163 H 175 H 191 H (70-110) mg/dL Calcium (8.4-10.2) mg/dL Phosphorus (2.5-4.5) mg/dL Total Bilirubin (0.2-1.3) mg/dL AST (17-59) U/L ALT (4-49) U/L Alkaline Phosphatase (38-126) U/L Creatine Kinase (55-170) U/L Troponin I (0.000-0.034) ng/mL Total Protein (6.3-8.2) g/dL Albumin (3.5-5.0) g/dL Procalcitonin (0.02-0.50) ng/mL 09/06/24 09/06/24 09/06/24 Range/Units 00:04 01:07 02:09 WBC (3.8-10.6) k/uL RBC (4.30-5.90) m/uL Hgb (13.0-17.5) gm/dL Hct (39.0-53.0) % Plt Count (150-450) k/uL Neutrophils # (1.3-7.7) k/uL Lymphocytes # (1.0-4.8) k/uL ABG pH (7.35-7.45) ABG pCO2 (35-45) mmHg ABG pO2 (83-108) mmHg ABG HCO3 (21-25) mmol/L ABG Total CO2 (19-24) mmol/L ABG O2 Saturation (94-97) % Hemoglobin (13.0-17.5) gm/dL Potassium (3.5-5.1) mmol/L BUN (9-20) mg/dL Creatinine (0.66-1.25) mg/dL Glucose (74-99) mg/dL POC Glucose (mg/dL) 197 H 178 H 169 H (70-110) mg/dL Calcium (8.4-10.2) mg/dL Phosphorus (2.5-4.5) mg/dL Total Bilirubin (0.2-1.3) mg/dL AST (17-59) U/L ALT (4-49) U/L Alkaline Phosphatase (38-126) U/L Creatine Kinase (55-170) U/L Troponin I (0.000-0.034) ng/mL Total Protein (6.3-8.2) g/dL Albumin (3.5-5.0) g/dL Procalcitonin (0.02-0.50) ng/mL 09/06/24 09/06/24 09/06/24 Range/Units 03:07 04:15 04:47 WBC (3.8-10.6) k/uL RBC (4.30-5.90) m/uL Hgb (13.0-17.5) gm/dL Hct (39.0-53.0) % Plt Count (150-450) k/uL Neutrophils # (1.3-7.7) k/uL Lymphocytes # (1.0-4.8) k/uL ABG pH (7.35-7.45) ABG pCO2 (35-45) mmHg ABG pO2 (83-108) mmHg ABG HCO3 (21-25) mmol/L ABG Total CO2 (19-24) mmol/L ABG O2 Saturation (94-97) % Hemoglobin (13.0-17.5) gm/dL Potassium (3.5-5.1) mmol/L BUN 138 H* (9-20) mg/dL Creatinine 7.61 H* (0.66-1.25) mg/dL Glucose 137 H (74-99) mg/dL POC Glucose (mg/dL) 139 H 124 H (70-110) mg/dL Calcium 6.6 L (8.4-10.2) mg/dL Phosphorus 5.0 H (2.5-4.5) mg/dL Total Bilirubin 2.2 H (0.2-1.3) mg/dL AST 304 H (17-59) U/L ALT 113 H (4-49) U/L Alkaline Phosphatase 135 H (38-126) U/L Creatine Kinase 6149 H* (55-170) U/L Troponin I (0.000-0.034) ng/mL Total Protein 4.8 L (6.3-8.2) g/dL Albumin 2.3 L (3.5-5.0) g/dL Procalcitonin (0.02-0.50) ng/mL 09/06/24 09/06/24 09/06/24 Range/Units 04:47 05:30 07:57 WBC 13.6 H (3.8-10.6) k/uL RBC 3.75 L (4.30-5.90) m/uL Hgb 11.2 L (13.0-17.5) gm/dL Hct 33.1 L (39.0-53.0) % Plt Count 119 L (150-450) k/uL Neutrophils # 12.4 H (1.3-7.7) k/uL Lymphocytes # 0.4 L (1.0-4.8) k/uL ABG pH 7.46 H (7.35-7.45) ABG pCO2 34 L (35-45) mmHg ABG pO2 72 L (83-108) mmHg ABG HCO3 (21-25) mmol/L ABG Total CO2 25 H (19-24) mmol/L ABG O2 Saturation (94-97) % Hemoglobin 11.3 L (13.0-17.5) gm/dL Potassium (3.5-5.1) mmol/L BUN (9-20) mg/dL Creatinine (0.66-1.25) mg/dL Glucose (74-99) mg/dL POC Glucose (mg/dL) 164 H (70-110) mg/dL Calcium (8.4-10.2) mg/dL Phosphorus (2.5-4.5) mg/dL Total Bilirubin (0.2-1.3) mg/dL AST (17-59) U/L ALT (4-49) U/L Alkaline Phosphatase (38-126) U/L Creatine Kinase (55-170) U/L Troponin I (0.000-0.034) ng/mL Total Protein (6.3-8.2) g/dL Albumin (3.5-5.0) g/dL Procalcitonin (0.02-0.50) ng/mL 09/06/24 Range/Units 09:09 WBC (3.8-10.6) k/uL RBC (4.30-5.90) m/uL Hgb (13.0-17.5) gm/dL Hct (39.0-53.0) % Plt Count (150-450) k/uL Neutrophils # (1.3-7.7) k/uL Lymphocytes # (1.0-4.8) k/uL ABG pH (7.35-7.45) ABG pCO2 (35-45) mmHg ABG pO2 (83-108) mmHg ABG HCO3 (21-25) mmol/L ABG Total CO2 (19-24) mmol/L ABG O2 Saturation (94-97) % Hemoglobin (13.0-17.5) gm/dL Potassium (3.5-5.1) mmol/L BUN (9-20) mg/dL Creatinine (0.66-1.25) mg/dL Glucose (74-99) mg/dL POC Glucose (mg/dL) 196 H (70-110) mg/dL Calcium (8.4-10.2) mg/dL Phosphorus (2.5-4.5) mg/dL Total Bilirubin (0.2-1.3) mg/dL AST (17-59) U/L ALT (4-49) U/L Alkaline Phosphatase (38-126) U/L Creatine Kinase (55-170) U/L Troponin I (0.000-0.034) ng/mL Total Protein (6.3-8.2) g/dL Albumin (3.5-5.0) g/dL Procalcitonin (0.02-0.50) ng/mL Microbiology - Last 24 Hours (Table) 09/05/24 12:38 Gram Stain - Preliminary Sputum 09/04/24 22:22 Urine Culture - Preliminary Urine,Voided Gram Neg Bacilli 09/04/24 17:04 Blood Culture Gram Stain - Preliminary Blood Blood Culture - Preliminary Molecular ID
[2024-09-06] MEDS ORDERED: INSULIN ASPART (NovoLOG) 100 UNIT/ML VIAL SQ SCH (17:30)
[2024-09-06] MEDS: INSULIN ASPART (NovoLOG) 100 UNIT/ML VIAL SQ SCH (17:51)
[2024-09-06 17:52] LABS: Glucose,Whole Blood 166 mg/dL (70-110)
[2024-09-06] MEDS: CHLORHEXIDINE GLUCONATE 15 ML CUP MUCOUS MEM SCH (19:50)
[2024-09-06 21:22] LABS: Hepatitis B Surface Antigen Nonreactive (Nonreactive)
[2024-09-06 21:50] LABS: Hepatitis B Surface AB- Quant 3.5 mIU/mL
[2024-09-06 23:58] LABS: Glucose,Whole Blood 273 mg/dL (70-110)
[2024-09-07 05:01] LABS: African American GFR (CKD) 14 (>60 ml/min/1.73 sqM); Anion Gap 9 mmol/L; Blood Urea Nitrogen 88 mg/dL (9-20); Carbon Dioxide 22 mmol/L (22-30); Chloride 103 mmol/L (98-107); Glucose 176 mg/dL (74-99); Non-African American GFR(CKD) 12 (>60 ml/min/1.73 sqM); Potassium 3.6 mmol/L (3.5-5.1); Sodium 134 mmol/L (137-145)
[2024-09-07 05:07] LABS: HCT 29.6 % (39.0-53.0); HGB 10.1 gm/dL (13.0-17.5); MCH 30.8 pg (25.0-35.0); MCHC 34.2 g/dL (31.0-37.0); Mean Platelet Volume 9.3; RBC 3.29 m/uL (4.30-5.90); RDW 14.7 % (11.5-15.5); WBC 9.9 k/uL (3.8-10.6)
[2024-09-07 05:10] LABS: Calcium 6.4 mg/dL (8.4-10.2)
[2024-09-07 05:18] LABS: Glucose,Whole Blood 237 mg/dL (70-110)
[2024-09-07 05:37] LABS: Platelet Count 76 k/uL (150-450)
[2024-09-07 06:03] LABS: ABG Base Excess 0.9 mmol/L; ABG HCO3 25 mmol/L (21-25); ABG Oxygen Saturation 91.4 % (94-97); ABG PCO2 34 mmHg (35-45); ABG PH 7.46 (7.35-7.45); ABG TCO2 26 mmol/L (19-24); Allen Test Performed? Yes
[2024-09-07 06:05] LABS: ABG PO2 59 mmHg (83-108)
--- NOTE | 2024-09-07 06:40 | XR ---
EXAMINATION TYPE: XR chest 1V portable DATE OF EXAM: 09/07/2024 5:16 AM COMPARISON: 09/06/2024 CLINICAL INDICATION: Male, 64 years old with history of pneumonia, TECHNIQUE: XR chest 1V portable view(s) obtained. FINDINGS: The heart size is prominent. The pulmonary vasculature is prominent. Mild diffuse increased lung markings are present. Correlate for congestive heart failure Endotracheal tube tip is 3 cm above the nicol. Nasogastric tube transverses the thorax. The central venous catheter tip is in the proximal right atrial region IMPRESSION: 1. Clinical consideration for worsening congestive heart failure [facility], , 09/07/2024 6:38 AM
[2024-09-07] MEDS: CALCIUM GLUCONATE IN NACL 1 GM in SALINE 1 100ML.BAG IVPB ONE (06:50)
[2024-09-07] MEDS ORDERED: MAGNESIUM SULFATE-D5W PMX 1 GM in DEXTROSE/WATER 1 100ML.BAG IVPB ONE (08:00)
--- NOTE | 2024-09-07 09:48 | P.PN ---
Subjective Progress Note Date: 09/07/24 Principal diagnosis: Acute kidney injury requiring hemodialysis Patient is seen and examined today as a follow-up. He remains sedated and intubated. He had a right femoral temporary HD catheter placed yesterday. Nursing reported he had hemodialysis yesterday without any complications. There is no bleeding from the groin. Objective - Vital Signs Vital signs: Vital Signs Temp 96.8 F L 09/07/24 04:00 Pulse 83 09/07/24 07:00 Resp 20 09/07/24 07:00 BP 114/56 09/06/24 16:16 Pulse Ox 95 09/07/24 07:00 FiO2 50 09/07/24 06:06 Intake & Output 09/06/24 09/07/24 09/07/24 18:59 06:59 18:59 Intake Total 2390.164 2450.874 Output Total 800 215 Balance 5359.558 3189.874 Weight 80.7 kg 81.6 kg Intake: IV 1300 1436 A Line 36 Calcium Gluconate in NaCl 100 1 gm In Saline 1 100ml. bag @ 100 mls/hr IVPB ONCE ONE Rx#:[id number] Cefepime 1 gm In Sodium 100 Chloride 0.9% 50 ml @ 12. 5 mls/hr IVPB DAILY MONI Rx#:[id number] LR 1200 1300 Intake, IV Titration 500.164 614.874 Amount Norepinephrine 4 mg In 346.764 389.199 Sodium Chloride 0.9% 250 ml @ 0.03 MCG/KG/MIN 8. 573 mls/hr IV .Q24H MONI Rx#:[id number] propofoL 1,000 mg In 153.4 225.675 Empty Bag 1 bag @ 15 MCG/ KG/MIN 6.75 mls/hr IV . [id number] MONI Rx#:[id number] Tube Feeding 90 310 Hemodialysis 500 Other 90 Output: Urine 300 215 Hemodialysis 500 Hemodialysis Net Amount 0 Other: Voiding Method Indwelling Catheter Indwelling Catheter # Bowel Movements 1 ABP, PAP, CO, CI - Last Documented Arterial Blood Pressure 90/45 - Exam General appearance: The patient is sedated and intubated HET: Head is normocephalic and atraumatic. Neck: Supple. Heart: Regular. Lungs: Equal expansion, on mechanical ventilation. Abdomen: Soft, nondistended. Extremities: Normal skin color and turgor. Right groin with temporary HD catheter with dressing, clean dry and intact. Neurological: Sedated and intubated. - Labs CBC & Chem 7: 09/07/24 04:40 09/07/24 04:40 Labs: Abnormal Lab Results - Last 24 Hours (Table) 09/06/24 09/06/24 09/06/24 Range/Units 07:57 09:09 11:28 RBC (4.30-5.90) m/uL Hgb (13.0-17.5) gm/dL Hct (39.0-53.0) % Plt Count (150-450) k/uL ABG pH (7.35-7.45) ABG pCO2 (35-45) mmHg ABG pO2 (83-108) mmHg ABG Total CO2 (19-24) mmol/L ABG O2 Saturation (94-97) % Hemoglobin (13.0-17.5) gm/dL Sodium (137-145) mmol/L BUN (9-20) mg/dL Creatinine (0.66-1.25) mg/dL Glucose (74-99) mg/dL POC Glucose (mg/dL) 164 H 196 H 168 H (70-110) mg/dL Calcium (8.4-10.2) mg/dL Ionized Calcium Antony (4.5-5.3) mg/dL 09/06/24 09/06/24 09/06/24 Range/Units 16:13 17:50 23:56 RBC (4.30-5.90) m/uL Hgb (13.0-17.5) gm/dL Hct (39.0-53.0) % Plt Count (150-450) k/uL ABG pH (7.35-7.45) ABG pCO2 (35-45) mmHg ABG pO2 (83-108) mmHg ABG Total CO2 (19-24) mmol/L ABG O2 Saturation (94-97) % Hemoglobin (13.0-17.5) gm/dL Sodium (137-145) mmol/L BUN (9-20) mg/dL Creatinine (0.66-1.25) mg/dL Glucose (74-99) mg/dL POC Glucose (mg/dL) 143 H 166 H 273 H (70-110) mg/dL Calcium (8.4-10.2) mg/dL Ionized Calcium Antony (4.5-5.3) mg/dL 09/07/24 09/07/24 09/07/24 Range/Units 04:40 04:40 05:17 RBC 3.29 L (4.30-5.90) m/uL Hgb 10.1 L (13.0-17.5) gm/dL Hct 29.6 L (39.0-53.0) % Plt Count 76 L (150-450) k/uL ABG pH (7.35-7.45) ABG pCO2 (35-45) mmHg ABG pO2 (83-108) mmHg ABG Total CO2 (19-24) mmol/L ABG O2 Saturation (94-97) % Hemoglobin (13.0-17.5) gm/dL Sodium 134 L (137-145) mmol/L BUN 88 H (9-20) mg/dL Creatinine 4.68 H (0.66-1.25) mg/dL Glucose 176 H (74-99) mg/dL POC Glucose (mg/dL) 237 H (70-110) mg/dL Calcium 6.4 L* (8.4-10.2) mg/dL Ionized Calcium Antony (4.5-5.3) mg/dL 09/07/24 09/07/24 Range/Units 05:25 05:55 RBC (4.30-5.90) m/uL Hgb (13.0-17.5) gm/dL Hct (39.0-53.0) % Plt Count (150-450) k/uL ABG pH 7.46 H (7.35-7.45) ABG pCO2 34 L (35-45) mmHg ABG pO2 59 L* (83-108) mmHg ABG Total CO2 26 H (19-24) mmol/L ABG O2 Saturation 91.4 L (94-97) % Hemoglobin 9.9 L (13.0-17.5) gm/dL Sodium (137-145) mmol/L BUN (9-20) mg/dL Creatinine (0.66-1.25) mg/dL Glucose (74-99) mg/dL POC Glucose (mg/dL) (70-110) mg/dL Calcium (8.4-10.2) mg/dL Ionized Calcium Antony 3.7 L (4.5-5.3) mg/dL Microbiology - Last 24 Hours (Table) 09/04/24 22:22 Urine Culture - Preliminary Urine,Voided Gram Neg Bacilli 09/05/24 14:30 Blood Culture - Preliminary Blood 09/05/24 12:38 Gram Stain - Preliminary Sputum Sputum Culture - Preliminary 09/04/24 17:04 Blood Culture Gram Stain - Preliminary Blood Blood Culture - Preliminary Enterobacter cloacae Complex Serratia marcescens Molecular ID Assessment and Plan Assessment: 1. Acute kidney injury requiring hemodialysis status post temporary HD catheter placement 2. Altered mental status changes 3. Rhabdomyolysis 4. Positive UTI 5. Bacteremia Plan: 1. Hemodialysis per recommendations from nephrology Thank you for this consultation, vascular surgery will be on standby if further needed please do not hesitate to call us back. The impression and plan of care has been dictated as directed. Dr. Santiago I performed a history and examination of this patient, discussed the same with the dictator. I agree with the dictator's note ,documented as a scribe. Any additional findings or plans will be noted.
--- NOTE | 2024-09-07 10:41 | P.PN ---
Subjective Progress Note Date: 09/07/24 histpry of present illness: Patient is a 64-year-old male with past medical history significant for diabetes mellitus, chronic kidney disease, hyperlipidemia, hypertension, among other things. Patient is currently in the intensive care unit, he is a poor historian. Unable to provide reliable hi story. The ER provider did not contact me. Per the ER documentation, patient was found on the ground for an unknown known amount of time, last seen well 2 weeks prior by his sister. He was found to be in acute rhabdomyolysis with acute renal failure. He was also found with elevated blood sugars. CT of the brain and C-spine without contrast showing no acute intracranial process and no acute osseous abnormalities of the C-spine. Initial labs include a CBC: WBC count 17.3, hemoglobin 14.6, hematocrit 45.1, platelets 226. CMP: Sodium 136, potassium 5.7, chloride 95, serum bicarb 14, BUN 137, creatinine 8.82, glucose 578. Lactic 1.5. Magnesium 2.7. LFTs mildly elevated. Troponin 0.043. NT proBNP 4510. EKG: normal sinus rhythm, rate 88 bpm, incomplete RBB pattern, without obvious acute ischemic changes. Urine drug screen unremarkable. Serum ETOH < 10. Currently evaluating this patient in the intensive care unit. CPK was 7555 on arrival. Did receive 1.5 L normal saline bolus in in ED and started on normal saline at 130 ml/hr. Subsequently started on sodium bicarbonate infusion 3 A in D5W at 100 mL/h. urine output is in the order of 30 to 50 cc/h. Nephrology is managing. Repeat potassium is down to 4.7. On arrival blood glucose 578, serum bicarb 12, anion gap 27, acetone positive. Patient has also been started on insulin infusion Per protocol. He did develop some respiratory distress, breathing in the high 40s. I did ask for the pateint to be placed on BiPAP with settings 10/5 and FiO2 to be titrated appropriately. Chest x-ray showing cardiomegaly. There is a left midlung linear infiltrates concerning for atelectasis or early pneumonia. Patient does have bruising to his left lateral chest. It is painful to palpation without crepitus or subcutaneous emphysema. Patient was empirically started on antibiotics in the ED.Current vitals: 97.6 F, blood pressure 115/85 mmHg, heart rate 78 bpm, tachypneic breathing in the high 40s, SpO2 is 100% on BiPAP with settings 10/5 FiO2 100%. Prognosis is guarded. 09/06/24 - Patient seen at bedside this morning, remaining in the ICU, day 2 of hospitalization, admitted on 09/05/24 and in the ICU since that time. He was placed to mechanical ventilation with intubation yesterday (09/05/24). He is on assist-control with a rate of 20, volume 450, FiO2 40%, PEEP of 5. ABG this morning showed pO2 72, pCO2 34, pH 7.46, indicating respiratory alkalosis with relative hypoxemia. Initial improvement in his WBCs down to 13.6 (from 14.8) this morning, his hemoglobin decreased to 11.2. His BUN is 138, creatinine 7.6 1. Increase in AST, 3-4, and ALT, up to 113. Phosphorus 5.0, remaining 9, calcium 6.6, remaining well. Creatinine Kinase remains elevated, showing improvements, to 6149. His procalcitonin returned at > 100. His blood cultures were positive for Enterobacter cloacae without resistance noted, patient placed on cefepime - discontinued Rocephin and Zithromax. Patient remained Levophed at 0.09 mcg/kg/min (7.26 mcg/min) and propofol 40 mcg/kg/min. Blood pressure this morning 113/52. He will be started on vital HP 10 cc/h, with a goal being 37 cc/h. 09/07/24 - Patient seen at bedside today, remaining in the ICU, day 3 of hospitalization. Admitted on 09/05/24 and in the ICU since that time. He has been intubated on mechanical ventilation since 09/05/24. He remains on assist- control with a rate of 20, volume 450, FiO2 50% and a PEEP of 8. ABG this morning showed pO2 59, pCO2 34, pH 7.46 which indicated respiratory alkalosis with some metabolic alkalosis - this was done while the patient was on an FiO2 of 40%. At that time, patient's FiO2 was up to 50% and his PEEP was increased to 8, since that time he has been saturating well. This morning his WBCs are 9.9, hemoglobin 10.1, platelet count 76, sodium 134, BUN 88, creatinine 4.68, calcium 6.4 and ionized calcium 3.7. Most recent creatinine kinase 2760. Because of the patient's relative hypocalcemia he received 1 g of calcium gluconate. The CVP has been slightly elevated since its insertion, at the time of insertion read ~9, however when seen the patient it was reading 6 indicated the patient is likely euvolemic. Patient remains on Levophed 0.01 mcg/kg/min (8 mcg/min), and on propofol 40 mcg/kg/min and vital HP at 30 cc/h (goal of 37 cc/h). He remains on cefepime and lactated ringer 100 cc/h. His urine was positive, preliminarily, for gram-negative bacilli. Preliminary results of blood culture showed Enterobacter cloacae and Serratia marcescens. REVIEW OF SYSTEMS: Unable to assess the patient allan intubated mechanically ventilated. PHYSICAL EXAMINATION: GENERAL: Patient currently intubated mechanically ventilated. HEENT:No scleral icterus. No conjunctival pallor. Normocephalic, atraumatic. CARDIOVASCULAR: S1 and S2 present. No murmurs, rubs, or gallops. PULMONARY: Chest is clear to auscultation, no wheezing or crackles. ABDOMEN: Soft, nontender, nondistended, normoactive bowel sounds. No palpable organomegaly. MUSCULOSKELETAL: No joint swelling or deformity. EXTREMITIES: No cyanosis, clubbing, or pedal edema. NEUROLOGICAL: Intubated, mechanically ventilated, sedated. Unable to fully assess. SKIN: No rashes. Assessment and plan #Acute hypoxic respiratory failure, requiring mechanical ventilation and intubation on 09/05/24 -Rate of 20, volume 450, FiO2 40%, PEEP of 5; upon receiving the ABG this morning, settings changed to rate of 20, volume 450, FiO2 50%, PEEP of 8 -ABG this morning showed pO2 59, pCO2 34, pH 7.46 indicating respiratory alkalosis -Additionally indicating relative hypoxemia -Continue to monitor ABGs and adjust the settings of the ventilator as able and tolerated #Acute rhabdomyolysis #Acute kidney injury; Acute tubular necrosis #Elevated troponins, in setting of acute renal failure -Initial creatinine kinase 7555, increased to 9320, decreased to 6149 -Creatinine kinase this morning 2760 -Patient continuing on lactated ringer 100 cc/h -Nephrology consulted; consult made for temporary hemodialysis catheter to be placed -Patient to receive hemodialysis today #Sepsis, verified Enterobacter cloacae infection #Hypertension, secondary to above -WBCs remain elevated, Tmax 102.2 F (09/05/24) -Blood cultures preliminarily positive for Enterobacter Cloacae and Serratia marcescens -Urine culture preliminarily positive for gram-negative bacilli -Patient started on cefepime 1 g daily; discontinued Rocephin and Zithromax -Patient maintained on Levophed 0.1 mcg/kg/min (~8 mcg/min) -Infectious disease consulted #Mechanical fall, is on home 2 weeks prior -CT of the brain and CT spine without contrast showed no acute intracranial process and no acute osseous abnormalities in the C-spine #Hyperkalemia, resolved #Anion gap metabolic acidosis, improving #Hyperphosphatemia, improving #Hypocalcemia likely secondary to decreased albumin -Continue to monitor BMP #Hx of HTN #Hx of HLD #Hx of T2DM #Chronic kidney disease stage IIIb #Hx of frequent UTIs GI prophylaxis: Pepcid 20 mg IV daily DVT Prophylaxis: 5000 units heparin SQ every 12 hours Dictation was produced using [employer] dictation software. please excuse any grammatical, word or spelling errors. Objective - Vital Signs Vital signs: Vital Signs Temp 100.0 F H 09/07/24 08:00 Pulse 84 09/07/24 09:33 Resp 29 H 09/07/24 08:00 BP 114/56 09/06/24 16:16 Pulse Ox 96 09/07/24 08:00 FiO2 50 09/07/24 10:12 Intake & Output 09/06/24 09/07/24 09/07/24 18:59 06:59 18:59 Intake Total 2390.164 2450.874 498.858 Output Total 800 215 30 Balance 8067.835 1230.874 468.858 Weight 80.7 kg 81.6 kg Intake: IV 1300 1436 306 A Line 36 6 Calcium Gluconate in NaCl 100 1 gm In Saline 1 100ml. bag @ 100 mls/hr IVPB ONCE ONE Rx#:[id number] Cefepime 1 gm In Sodium 100 100 Chloride 0.9% 50 ml @ 12. 5 mls/hr IVPB DAILY [facility] Rx#:[id number] LR 1200 1300 200 Intake, IV Titration 500.164 614.874 132.858 Amount Norepinephrine 4 mg In 346.764 389.199 40.72 Sodium Chloride 0.9% 250 ml @ 0.03 MCG/KG/MIN 8. 573 mls/hr IV .Q24H [facility] Rx#:[id number] propofoL 1,000 mg In 153.4 225.675 92.138 Empty Bag 1 bag @ 15 MCG/ KG/MIN 6.75 mls/hr IV . [id number] [facility] Rx#:[id number] Tube Feeding 90 310 60 Hemodialysis 500 Other 90 Output: Urine 300 215 30 Hemodialysis 500 Hemodialysis Net Amount 0 Other: Voiding Method Indwelling Catheter Indwelling Catheter Indwelling Catheter # Bowel Movements 1 ABP, PAP, CO, CI - Last Documented Arterial Blood Pressure 110/55 - Labs CBC & Chem 7: 09/07/24 04:40 09/07/24 04:40 Labs: Abnormal Lab Results - Last 24 Hours (Table) 09/06/24 09/06/24 09/06/24 Range/Units 11:28 16:13 17:50 RBC (4.30-5.90) m/uL Hgb (13.0-17.5) gm/dL Hct (39.0-53.0) % Plt Count (150-450) k/uL ABG pH (7.35-7.45) ABG pCO2 (35-45) mmHg ABG pO2 (83-108) mmHg ABG Total CO2 (19-24) mmol/L ABG O2 Saturation (94-97) % Hemoglobin (13.0-17.5) gm/dL Sodium (137-145) mmol/L BUN (9-20) mg/dL Creatinine (0.66-1.25) mg/dL Glucose (74-99) mg/dL POC Glucose (mg/dL) 168 H 143 H 166 H (70-110) mg/dL Calcium (8.4-10.2) mg/dL Ionized Calcium Antony (4.5-5.3) mg/dL Creatine Kinase (55-170) U/L 09/06/24 09/07/24 09/07/24 Range/Units 23:56 04:40 04:40 RBC 3.29 L (4.30-5.90) m/uL Hgb 10.1 L (13.0-17.5) gm/dL Hct 29.6 L (39.0-53.0) % Plt Count 76 L (150-450) k/uL ABG pH (7.35-7.45) ABG pCO2 (35-45) mmHg ABG pO2 (83-108) mmHg ABG Total CO2 (19-24) mmol/L ABG O2 Saturation (94-97) % Hemoglobin (13.0-17.5) gm/dL Sodium 134 L (137-145) mmol/L BUN 88 H (9-20) mg/dL Creatinine 4.68 H (0.66-1.25) mg/dL Glucose 176 H (74-99) mg/dL POC Glucose (mg/dL) 273 H (70-110) mg/dL Calcium 6.4 L* (8.4-10.2) mg/dL Ionized Calcium Antony (4.5-5.3) mg/dL Creatine Kinase (55-170) U/L 09/07/24 09/07/24 09/07/24 Range/Units 05:17 05:25 05:55 RBC (4.30-5.90) m/uL Hgb (13.0-17.5) gm/dL Hct (39.0-53.0) % Plt Count (150-450) k/uL ABG pH 7.46 H (7.35-7.45) ABG pCO2 34 L (35-45) mmHg ABG pO2 59 L* (83-108) mmHg ABG Total CO2 26 H (19-24) mmol/L ABG O2 Saturation 91.4 L (94-97) % Hemoglobin 9.9 L (13.0-17.5) gm/dL Sodium (137-145) mmol/L BUN (9-20) mg/dL Creatinine (0.66-1.25) mg/dL Glucose (74-99) mg/dL POC Glucose (mg/dL) 237 H (70-110) mg/dL Calcium (8.4-10.2) mg/dL Ionized Calcium Antony 3.7 L (4.5-5.3) mg/dL Creatine Kinase (55-170) U/L 09/07/24 Range/Units 09:30 RBC (4.30-5.90) m/uL Hgb (13.0-17.5) gm/dL Hct (39.0-53.0) % Plt Count (150-450) k/uL ABG pH (7.35-7.45) ABG pCO2 (35-45) mmHg ABG pO2 (83-108) mmHg ABG Total CO2 (19-24) mmol/L ABG O2 Saturation (94-97) % Hemoglobin (13.0-17.5) gm/dL Sodium (137-145) mmol/L BUN (9-20) mg/dL Creatinine (0.66-1.25) mg/dL Glucose (74-99) mg/dL POC Glucose (mg/dL) (70-110) mg/dL Calcium (8.4-10.2) mg/dL Ionized Calcium Antony (4.5-5.3) mg/dL Creatine Kinase 2760 H* (55-170) U/L Microbiology - Last 24 Hours (Table) 09/05/24 12:38 Gram Stain - Final Sputum Sputum Culture - Final 09/04/24 22:22 Urine Culture - Preliminary Urine,Voided Gram Neg Bacilli 09/05/24 14:30 Blood Culture - Preliminary Blood 09/04/24 17:04 Blood Culture Gram Stain - Preliminary Blood Blood Culture - Preliminary Enterobacter cloacae Complex Serratia marcescens Molecular ID
[2024-09-07 11:36] LABS: Glucose,Whole Blood 148 mg/dL (70-110)
--- NOTE | 2024-09-07 15:24 | P.PN ---
Subjective patient is seen for follow-up for acute kidney injury. Patient remains on the vent. FiO2 at 40% Urine output at 10-30 ml/hr. Started on dialysis on 09/06/2024 Currently seen on dialysis. Tolerating treatment well. Chest x-ray shows pulmonary vascular congestion. We will increase UF with hemodialysis today. Objective - Vital Signs Vital signs: Vital Signs Temp 98.2 F 09/07/24 13:52 Pulse 92 09/07/24 14:00 Resp 33 H 09/07/24 14:00 BP 135/62 09/07/24 13:52 Pulse Ox 95 09/07/24 14:00 FiO2 50 09/07/24 12:08 Intake & Output 09/06/24 09/07/24 09/07/24 18:59 06:59 18:59 Intake Total 2390.164 2450.874 1177.858 Output Total 592 271 2632 Balance 7333.182 5496.874 -402.142 Weight 80.7 kg 81.6 kg Intake: IV 1300 1436 321 A Line 36 21 Calcium Gluconate in NaCl 100 1 gm In Saline 1 100ml. bag @ 100 mls/hr IVPB ONCE ONE Rx#:[id number] Cefepime 1 gm In Sodium 100 100 Chloride 0.9% 50 ml @ 12. 5 mls/hr IVPB DAILY [facility] Rx#:[id number] LR 1200 1300 200 Intake, IV Titration 500.164 614.874 132.858 Amount Norepinephrine 4 mg In 346.764 389.199 40.72 Sodium Chloride 0.9% 250 ml @ 0.03 MCG/KG/MIN 8. 573 mls/hr IV .Q24H [facility] Rx#:[id number] propofoL 1,000 mg In 153.4 225.675 92.138 Empty Bag 1 bag @ 15 MCG/ KG/MIN 6.75 mls/hr IV . [id number] [facility] Rx#:[id number] Tube Feeding 90 310 224 Hemodialysis 500 500 Other 90 Output: Urine 300 215 80 Hemodialysis 500 1000 Hemodialysis Net Amount 0 500 Other: Voiding Method Indwelling Catheter Indwelling Catheter Indwelling Catheter # Bowel Movements 1 ABP, PAP, CO, CI - Last Documented Arterial Blood Pressure 115/55 - Exam patient is sedated and intubated. Examination of the heart S1 and S2 Examination of the lungs bilateral breath sounds are heard Abdomen is soft nontender Examination of lower extremities shows no significant edema - Labs CBC & Chem 7: 09/07/24 04:40 09/07/24 04:40 Labs: Abnormal Lab Results - Last 24 Hours (Table) 09/06/24 09/06/24 09/06/24 Range/Units 16:13 17:50 23:56 RBC (4.30-5.90) m/uL Hgb (13.0-17.5) gm/dL Hct (39.0-53.0) % Plt Count (150-450) k/uL ABG pH (7.35-7.45) ABG pCO2 (35-45) mmHg ABG pO2 (83-108) mmHg ABG Total CO2 (19-24) mmol/L ABG O2 Saturation (94-97) % Hemoglobin (13.0-17.5) gm/dL Sodium (137-145) mmol/L BUN (9-20) mg/dL Creatinine (0.66-1.25) mg/dL Glucose (74-99) mg/dL POC Glucose (mg/dL) 143 H 166 H 273 H (70-110) mg/dL Calcium (8.4-10.2) mg/dL Ionized Calcium Antony (4.5-5.3) mg/dL Creatine Kinase (55-170) U/L 09/07/24 09/07/24 09/07/24 Range/Units 04:40 04:40 05:17 RBC 3.29 L (4.30-5.90) m/uL Hgb 10.1 L (13.0-17.5) gm/dL Hct 29.6 L (39.0-53.0) % Plt Count 76 L (150-450) k/uL ABG pH (7.35-7.45) ABG pCO2 (35-45) mmHg ABG pO2 (83-108) mmHg ABG Total CO2 (19-24) mmol/L ABG O2 Saturation (94-97) % Hemoglobin (13.0-17.5) gm/dL Sodium 134 L (137-145) mmol/L BUN 88 H (9-20) mg/dL Creatinine 4.68 H (0.66-1.25) mg/dL Glucose 176 H (74-99) mg/dL POC Glucose (mg/dL) 237 H (70-110) mg/dL Calcium 6.4 L* (8.4-10.2) mg/dL Ionized Calcium Antony (4.5-5.3) mg/dL Creatine Kinase (55-170) U/L 09/07/24 09/07/24 09/07/24 Range/Units 05:25 05:55 09:30 RBC (4.30-5.90) m/uL Hgb (13.0-17.5) gm/dL Hct (39.0-53.0) % Plt Count (150-450) k/uL ABG pH 7.46 H (7.35-7.45) ABG pCO2 34 L (35-45) mmHg ABG pO2 59 L* (83-108) mmHg ABG Total CO2 26 H (19-24) mmol/L ABG O2 Saturation 91.4 L (94-97) % Hemoglobin 9.9 L (13.0-17.5) gm/dL Sodium (137-145) mmol/L BUN (9-20) mg/dL Creatinine (0.66-1.25) mg/dL Glucose (74-99) mg/dL POC Glucose (mg/dL) (70-110) mg/dL Calcium (8.4-10.2) mg/dL Ionized Calcium Antony 3.7 L (4.5-5.3) mg/dL Creatine Kinase 2760 H* (55-170) U/L 09/07/24 Range/Units 11:35 RBC (4.30-5.90) m/uL Hgb (13.0-17.5) gm/dL Hct (39.0-53.0) % Plt Count (150-450) k/uL ABG pH (7.35-7.45) ABG pCO2 (35-45) mmHg ABG pO2 (83-108) mmHg ABG Total CO2 (19-24) mmol/L ABG O2 Saturation (94-97) % Hemoglobin (13.0-17.5) gm/dL Sodium (137-145) mmol/L BUN (9-20) mg/dL Creatinine (0.66-1.25) mg/dL Glucose (74-99) mg/dL POC Glucose (mg/dL) 148 H (70-110) mg/dL Calcium (8.4-10.2) mg/dL Ionized Calcium Antony (4.5-5.3) mg/dL Creatine Kinase (55-170) U/L Microbiology - Last 24 Hours (Table) 09/05/24 12:38 Gram Stain - Final Sputum Sputum Culture - Final 09/04/24 22:22 Urine Culture - Preliminary Urine,Voided Gram Neg Bacilli 09/05/24 14:30 Blood Culture - Preliminary Blood 09/04/24 17:04 Blood Culture Gram Stain - Preliminary Blood Blood Culture - Preliminary Enterobacter cloacae Complex Serratia marcescens Molecular ID Assessment and Plan Assessment: 1. Acute kidney injury ATN from hypotension, underlying infection and rhabdomyolysis, initially nonoliguric currently oliguric secondary to worsening hypotension. Maintained on vasopressors and status post IV fluid boluses. UA is suggestive of UTI. Started hemodialysis on 09/06/2024 2. Anion gap metabolic acidosis secondary to diabetic ketoacidosis and acute kidney injury, status post bicarb drip 3. Rhabdomyolysis with CK trending down 4. Acute hypoxic respiratory failure 5. Hyperkalemia associated with acute kidney injury, metabolic acidosis and rhabdomyolysis 6. History of right renal mass with previous MRI in 2022 showing enlarging lesion in the right kidney. This was not seen clearly on ultrasound performed this admission. Patient will need further evaluation and follow-up down the road. Plan: Repeat hemodialysis in a.m. Increase UF to about 1 L as tolerated DC IV fluids Continue with antibiotics and pressor support Further evaluation of right renal mass down the road
[2024-09-07] MEDS: HYDROmorphone 1 MG/ML 1 ML SYRINGE IVP PRN (16:09)
[2024-09-07 17:40] LABS: Glucose,Whole Blood 208 mg/dL (70-110)
[2024-09-07] MEDS: FUROSEMIDE 10 MG/ML 10 ML VIAL IV ONE (20:22)
[2024-09-07] MEDS: AMIODARONE 200 MG TAB PO SCH (20:22)
--- NOTE | 2024-09-07 21:13 | P.PN ---
Subjective Progress Note Date: 09/07/24 Patient is a 64-year-old male who presented to the hospital after a mechanical fall, subsequently suffering from rhabdomyolysis, metabolic encephalopathy and acute hypoxic respiratory failure. Cardiology has been consulted for congestive heart failure and elevated troponins. Patient has been intubated for airway protection and now will be undergoing bedside dialysis. Echocardiogram has revealed reduced LV function at 30-35% GENERAL: Well-appearing, well-nourished and in no acute distress. Sedated on ventilator NECK: Supple without JVD or thyromegaly. LUNGS: Breath sounds diminished to auscultation bilaterally. Respiration equal and unlabored. No wheezes rales or rhonchi. HEART: Regular rate and rhythm without murmurs, rubs or gallops. S1 and S2 heard. EXTREMITIES: Normal range of motion, +1 edema. No clubbing or cyanosis. Peripheral pulses intact and strong. TELEMETRY: Sinus rhythm to sinus tachycardia LABS: WBC 9.9, hemoglobin 10.1, hematocrit 29.6, platelets 76, sodium 134, potassium 3.6, BUN 88, creatinine 4.68 IMPRESSION: Metabolic encephalopathy Sepsis Thrombocytopenia Acute hypoxic respiratory failure Acute rhabdomyolysis Systolic heart failure Acute kidney injury Troponin elevation, likely type II myocardial infarction History of diabetes PLAN: Continue supportive treatment Patient to undergo dialysis today Start statin once liver enzymes improve Further recommendations to be based upon clinical course. Prognosis is guarded. I am dictating on behalf of Dr Chucho Aguilera's history/physical and assessment/plan. Objective - Vital Signs Vital signs: Vital Signs Temp 97.7 F 09/07/24 20:00 Pulse 92 09/07/24 21:00 Resp 26 H 09/07/24 21:00 BP 135/62 09/07/24 13:52 Pulse Ox 90 L 09/07/24 21:00 FiO2 50 09/07/24 20:54 Intake & Output 09/07/24 09/07/24 09/08/24 06:59 18:59 06:59 Intake Total 2450.874 1843.910 132.36 Output Total 215 1605 50 Balance 2235.874 238.910 82.36 Weight 81.6 kg Intake: IV 1436 373 39 A Line 36 33 9 Calcium Gluconate in NaCl 100 1 gm In Saline 1 100ml. bag @ 100 mls/hr IVPB ONCE ONE Rx#:[id number] Cefepime 1 gm In Sodium 100 Chloride 0.9% 50 ml @ 12. 5 mls/hr IVPB DAILY [facility] Rx#:[id number] LR 1300 240 30 Intake, IV Titration 614.874 598.910 56.36 Amount Norepinephrine 4 mg In 389.199 365.110 18.86 Sodium Chloride 0.9% 250 ml @ 0.03 MCG/KG/MIN 8. 573 mls/hr IV .Q24H [facility] Rx#:[id number] propofoL 1,000 mg In 225.675 233.800 37.5 Empty Bag 1 bag @ 15 MCG/ KG/MIN 6.75 mls/hr IV . [id number] [facility] Rx#:[id number] Tube Feeding 310 372 37 Hemodialysis 500 Other 90 Output: Urine 215 105 50 Hemodialysis 1000 Hemodialysis Net Amount 500 Other: Voiding Method Indwelling Catheter Indwelling Catheter Indwelling Catheter # Bowel Movements 1 1 ABP, PAP, CO, CI - Last Documented Arterial Blood Pressure 95/48 - Labs CBC & Chem 7: 09/07/24 04:40 09/07/24 04:40 Labs: Abnormal Lab Results - Last 24 Hours (Table) 09/06/24 09/07/24 09/07/24 Range/Units 23:56 04:40 04:40 RBC 3.29 L (4.30-5.90) m/uL Hgb 10.1 L (13.0-17.5) gm/dL Hct 29.6 L (39.0-53.0) % Plt Count 76 L (150-450) k/uL ABG pH (7.35-7.45) ABG pCO2 (35-45) mmHg ABG pO2 (83-108) mmHg ABG Total CO2 (19-24) mmol/L ABG O2 Saturation (94-97) % Hemoglobin (13.0-17.5) gm/dL Sodium 134 L (137-145) mmol/L BUN 88 H (9-20) mg/dL Creatinine 4.68 H (0.66-1.25) mg/dL Glucose 176 H (74-99) mg/dL POC Glucose (mg/dL) 273 H (70-110) mg/dL Calcium 6.4 L* (8.4-10.2) mg/dL Ionized Calcium Antony (4.5-5.3) mg/dL Creatine Kinase (55-170) U/L 09/07/24 09/07/24 09/07/24 Range/Units 05:17 05:25 05:55 RBC (4.30-5.90) m/uL Hgb (13.0-17.5) gm/dL Hct (39.0-53.0) % Plt Count (150-450) k/uL ABG pH 7.46 H (7.35-7.45) ABG pCO2 34 L (35-45) mmHg ABG pO2 59 L* (83-108) mmHg ABG Total CO2 26 H (19-24) mmol/L ABG O2 Saturation 91.4 L (94-97) % Hemoglobin 9.9 L (13.0-17.5) gm/dL Sodium (137-145) mmol/L BUN (9-20) mg/dL Creatinine (0.66-1.25) mg/dL Glucose (74-99) mg/dL POC Glucose (mg/dL) 237 H (70-110) mg/dL Calcium (8.4-10.2) mg/dL Ionized Calcium Antony 3.7 L (4.5-5.3) mg/dL Creatine Kinase (55-170) U/L 09/07/24 09/07/24 09/07/24 Range/Units 09:30 11:35 17:38 RBC (4.30-5.90) m/uL Hgb (13.0-17.5) gm/dL Hct (39.0-53.0) % Plt Count (150-450) k/uL ABG pH (7.35-7.45) ABG pCO2 (35-45) mmHg ABG pO2 (83-108) mmHg ABG Total CO2 (19-24) mmol/L ABG O2 Saturation (94-97) % Hemoglobin (13.0-17.5) gm/dL Sodium (137-145) mmol/L BUN (9-20) mg/dL Creatinine (0.66-1.25) mg/dL Glucose (74-99) mg/dL POC Glucose (mg/dL) 148 H 208 H (70-110) mg/dL Calcium (8.4-10.2) mg/dL Ionized Calcium Antony (4.5-5.3) mg/dL Creatine Kinase 2760 H* (55-170) U/L Microbiology - Last 24 Hours (Table) 09/05/24 14:30 Blood Culture - Preliminary Blood 09/05/24 12:38 Gram Stain - Final Sputum Sputum Culture - Final 09/04/24 22:22 Urine Culture - Preliminary Urine,Voided Gram Neg Bacilli
[2024-09-07] MEDS: NOREPINEPHRINE 8 MG in SODIUM CHLORIDE 0.9% 250 ML IV SCH (21:19)
[2024-09-08 00:15] LABS: Glucose,Whole Blood 174 mg/dL (70-110)
[2024-09-08 05:03] LABS: ABG Base Excess -1.3 mmol/L; ABG HCO3 22 mmol/L (21-25); ABG Oxygen Saturation 92.3 % (94-97); ABG PCO2 32 mmHg (35-45); ABG PH 7.45 (7.35-7.45); ABG PO2 60 mmHg (83-108); ABG TCO2 23 mmol/L (19-24); Allen Test Performed? Yes
--- NOTE | 2024-09-08 05:09 | XR ---
EXAMINATION TYPE: XR chest 1V portable DATE OF EXAM: 09/08/2024 CLINICAL HISTORY: Difficulty breathing progress study. TECHNIQUE: Single AP portable semiupright view of the chest is obtained. COMPARISON: Chest x-ray from one day earlier FINDINGS: Stable endotracheal and orogastric tubes. Stable left-sided central venous catheter. Cardiac silhouette size stable and upper limits of normal. Persistent mild to moderate central vascul ar congestion bilaterally. Osseous structures are intact. IMPRESSION: Persistent mild/moderate central vascular congestion bilaterally consistent with fluid ov erload state. [facility], , 09/08/2024 5:07 AM
[2024-09-08 05:38] LABS: ALT 52 U/L (4-49); AST 96 U/L (17-59); African American GFR (CKD) 18 (>60 ml/min/1.73 sqM); Albumin 1.8 g/dL (3.5-5.0); Alkaline Phosphatase 177 U/L (38-126); Anion Gap 9 mmol/L; Blood Urea Nitrogen 63 mg/dL (9-20); Calcium 6.7 mg/dL (8.4-10.2); Carbon Dioxide 20 mmol/L (22-30); Chloride 104 mmol/L (98-107); Glucose 274 mg/dL (74-99); Non-African American GFR(CKD) 15 (>60 ml/min/1.73 sqM); Potassium 3.9 mmol/L (3.5-5.1); Sodium 133 mmol/L (137-145); Total Bilirubin 4.9 mg/dL (0.2-1.3); Total Protein 4.3 g/dL (6.3-8.2)
[2024-09-08 05:46] LABS: HCT 28.1 % (39.0-53.0); HGB 9.4 gm/dL (13.0-17.5); MCH 30.1 pg (25.0-35.0); MCHC 33.3 g/dL (31.0-37.0); MCV 90.4 fL (80.0-100.0); Mean Platelet Volume 10.6; RBC 3.11 m/uL (4.30-5.90); RDW 15.2 % (11.5-15.5); WBC 10.2 k/uL (3.8-10.6)
[2024-09-08 05:47] LABS: Platelet Count 87 k/uL (150-450)
[2024-09-08 05:54] LABS: Glucose,Whole Blood 295 mg/dL (70-110)
[2024-09-08] MEDS: POTASSIUM BICARBONATE/CIT AC 20 MEQ TABLET.EFF NG-TUBE SCH (05:56)
--- NOTE | 2024-09-08 07:15 | P.PN ---
Subjective Progress Note Date: 09/07/24 This is a 64-year-old male with medical history significant for hyperlipidemia, diabetes mellitus, heart failure, chronic kidney disease, hypertension. Medical history is obtained from the patient's sister who is at the bedside. Patient is currently on the mechanical ventilator. Patient presented to the hospital yesterday afternoon after being found on the ground responsive by family. Sister states that she goes over to the patient's house every Tuesday to set up his medications for the week. Patient had another family member in the room states that they had spoken over the phone on . When patient's sister arrived to the house on Tuesday after not hearing from him for a few days she f ound him on the ground unresponsive and states that none of his medications from his pack were taken on Tuesday or Tuesday. This brought into the hospital by ambulance. He is currently intubated and sedated on the mechanical ventilator. Chest x-ray reveals mild linear infiltrate within the mid left lung may be atelectasis or early pneumonia. EKG reveals normal sinus rhythm heart rate of 88 EKG reads as possible right ventricular hypertrophy with inferior MO probably old and an anterior lateral MO of indeterminate age. Brain CT and cervical spine CT revealed no acute changes no evidence for any fracture or stroke. Initial blood work reveals a white blood cell count of 17.3, sodium level of 136 potassium of 5.7, BUN of 137, creatinine of 8.82, blood glucose of 578, lactic acid of 2.6, Phos level 10.6, magnesium of 2.7, AST of 150 ALT of 71, creat kinase of 7555, troponin level is 0.043, proBNP of 4510. Urinalysis is completed with brown turbid urine with greater than 182 RBCs greater than 182 WBCs with many bacteria. His urine drug toxicology is negative serum alcohol is less than 10 he is acetone positive. His viral panel and Legionella screenings are all negative. Was admitted to the hospital intensive care unit secondary to the diabetic ketoacidosis and rhabdomyolysis. There is concern for underlying infection or sepsis he is started empirically on IV azithromycin and IV ceftriaxone. Patient was fluid resuscitated with 2 L of normal saline given in the ER and an infusion of normal saline at 130 mL/h. He did have a repeat chest x-ray completed this morning which is concerning for congestive heart failure and was given a dose of IV Lasix. Multiple consults in place including nephrology and pulmonary water quality technician. Echocardiogram has been ordered and is currently pending at this time. 09/06/2024 Patient is seen in follow-up in the ICU continues on mechanical ventilation with an FiO2 of 40% and PEEP is 5 maintaining good oxygen saturations. Patient's kidney functions worsened showing a creatinine of 7.61 with a BUN of 138 and vascular surgery was consulted and patient is being initiated on hemodialysis. Creatinine kinase is trending down and currently 6149, maintained on fluids. Insulin drip has been placed on hold and will initiate sliding scale with Accu- Cheks per protocol. Patient continues on pressor support along with sedation. Patient continues on IV antibiotics with infectious disease following as well. 09/07/2024 Patient evaluated in follow up in the ICU. Remains on the mechanical ventilator with FiO2 of 40% PEEP of 5. Propofol on hold he is responding to stimuli at this time. Patient received temporary dialysis catheter and has undergone hemodialysis yesterday and again today. Labs today show significant improvement in his renal function with BUN of 88 and creatinine of 4.68. Blood culture coming back with serratia marcescens and enterobacter cloacae complex. Urine culture also showing enterobacter cloacae. ID following and patient remains on IV antibiotics. Chest xray reveals possible worsening CHF. REVIEW OF SYSTEMS: Unable to complete review of systems at this time patient is currently intubated and sedated. PHYSICAL EXAMINATION: GENERAL: The patient is sedated and on the mechanical ventilator, FiO2 is 40% with a PEEP of 5. Not in any acute distress. Well developed, well nourished. Ill-appearing, obese, elderly appearing HEENT: Pupils are round and equally reacting to light. EOMI. No scleral icterus. No conjunctival pallor. Normocephalic, atraumatic. No pharyngeal erythema. No thyromegaly. CARDIOVASCULAR: S1 and S2 muffled, tachy PULMONARY: Diminished breath sounds bilaterally otherwise chest is clear to auscultation, no wheezing or crackles. ABDOMEN: Soft, nontender, nondistended, normoactive bowel sounds. No palpable organomegaly. Bruise on the left upper abdomen. MUSCULOSKELETAL: No joint swelling or deformity. EXTREMITIES: No cyanosis, clubbing, or pedal edema. NEUROLOGICAL: Unable to completely assess as patient is on mechanical ventilation and sedated SKIN: No rashes. Pale Assessment and plan Altered mental status secondary to acute metabolic encephalopathy Sepsis with fever and lactic acidosis Acute UTI with sepsis and septic shock; requiring pressor support present on admission Bacteremia from the UTI Acute hypoxemic respiratory failure requiring mechanical intubation, FiO2 is 40% with a PEEP of 5 Diabetic ketoacidosis, improving and patient being transitioned off insulin drip will continue sliding scale along with long-acting if needed Anion gap metabolic acidosis Acute kidney injury acute tubular necrosis secondary to sepsis, worsening kidney functions now requiring hemodialysis, dialysis catheter being placed on 09/06/2024 Acute rhabdomyolysis secondary to prolonged downtime with CK of 7555 on admission Acute on chronic systolic heart failure Chronic Kidney disease Troponin elevation likely type II MO, although need to rule out NSTEMI Transaminitis Leukocytosis Diabetes mellitus type 2 uncontrolled with DKA Hyperlipidemia Hypertension maintained on lisinopril which is currently being held secondary to the renal dysfunction, currently hypotensive, requiring pressor support GI prophylaxis DVT prophylaxis Full Code Plan: Nephrology consultation and has consulted vascular surgery for hemodialysis catheter placement for emergent dialysis Hold nephrotoxic home medications including metformin, lisinopril Hold Farxiga due to the renal dysfunction Echocardiogram was done showing a reduced EF of 30 to 35% with no pericardial effusion with aortic valve sclerosis Cardiology consultation in place. Continue IV cefepime Repeat blood work in the AM The impression and plan of care has been dictated by Eneida James, Nurse Pr actitioner as directed. Dr. Iwona MD I have performed a history and physical examination and medical decision making of this patient, discussed the same with the dictator, and agree with the dicta tors assessment and plan as written, documented as a scribe. Based on total visit time, I have performed more than 50% of this visit. Objective - Vital Signs Vital signs: Vital Signs Temp 100.0 F H 09/07/24 08:00 Pulse 88 09/07/24 08:00 Resp 29 H 09/07/24 08:00 BP 114/56 09/06/24 16:16 Pulse Ox 96 09/07/24 08:00 FiO2 40 09/07/24 08:00 Intake & Output 09/06/24 09/07/24 09/07/24 18:59 06:59 18:59 Intake Total 2390.164 2450.874 498.858 Output Total 800 215 30 Balance 3668.528 3229.874 468.858 Weight 80.7 kg 81.6 kg Intake: IV 1300 1436 306 A Line 36 6 Calcium Gluconate in NaCl 100 1 gm In Saline 1 100ml. bag @ 100 mls/hr IVPB ONCE ONE Rx#:[id number] Cefepime 1 gm In Sodium 100 100 Chloride 0.9% 50 ml @ 12. 5 mls/hr IVPB DAILY [facility] Rx#:[id number] LR 1200 1300 200 Intake, IV Titration 500.164 614.874 132.858 Amount Norepinephrine 4 mg In 346.764 389.199 40.72 Sodium Chloride 0.9% 250 ml @ 0.03 MCG/KG/MIN 8. 573 mls/hr IV .Q24H [facility] Rx#:[id number] propofoL 1,000 mg In 153.4 225.675 92.138 Empty Bag 1 bag @ 15 MCG/ KG/MIN 6.75 mls/hr IV . [id number] [facility] Rx#:[id number] Tube Feeding 90 310 60 Hemodialysis 500 Other 90 Output: Urine 300 215 30 Hemodialysis 500 Hemodialysis Net Amount 0 Other: Voiding Method Indwelling Catheter Indwelling Catheter Indwelling Catheter # Bowel Movements 1 ABP, PAP, CO, CI - Last Documented Arterial Blood Pressure 110/55 - Labs CBC & Chem 7: 09/08/24 05:00 09/08/24 05:00 Labs: Abnormal Lab Results - Last 24 Hours (Table) 09/06/24 09/06/24 09/06/24 Range/Units 11:28 16:13 17:50 RBC (4.30-5.90) m/uL Hgb (13.0-17.5) gm/dL Hct (39.0-53.0) % Plt Count (150-450) k/uL ABG pH (7.35-7.45) ABG pCO2 (35-45) mmHg ABG pO2 (83-108) mmHg ABG Total CO2 (19-24) mmol/L ABG O2 Saturation (94-97) % Hemoglobin (13.0-17.5) gm/dL Sodium (137-145) mmol/L BUN (9-20) mg/dL Creatinine (0.66-1.25) mg/dL Glucose (74-99) mg/dL POC Glucose (mg/dL) 168 H 143 H 166 H (70-110) mg/dL Calcium (8.4-10.2) mg/dL Ionized Calcium Antony (4.5-5.3) mg/dL 09/06/24 09/07/24 09/07/24 Range/Units 23:56 04:40 04:40 RBC 3.29 L (4.30-5.90) m/uL Hgb 10.1 L (13.0-17.5) gm/dL Hct 29.6 L (39.0-53.0) % Plt Count 76 L (150-450) k/uL ABG pH (7.35-7.45) ABG pCO2 (35-45) mmHg ABG pO2 (83-108) mmHg ABG Total CO2 (19-24) mmol/L ABG O2 Saturation (94-97) % Hemoglobin (13.0-17.5) gm/dL Sodium 134 L (137-145) mmol/L BUN 88 H (9-20) mg/dL Creatinine 4.68 H (0.66-1.25) mg/dL Glucose 176 H (74-99) mg/dL POC Glucose (mg/dL) 273 H (70-110) mg/dL Calcium 6.4 L* (8.4-10.2) mg/dL Ionized Calcium Antony (4.5-5.3) mg/dL 09/07/24 09/07/24 09/07/24 Range/Units 05:17 05:25 05:55 RBC (4.30-5.90) m/uL Hgb (13.0-17.5) gm/dL Hct (39.0-53.0) % Plt Count (150-450) k/uL ABG pH 7.46 H (7.35-7.45) ABG pCO2 34 L (35-45) mmHg ABG pO2 59 L* (83-108) mmHg ABG Total CO2 26 H (19-24) mmol/L ABG O2 Saturation 91.4 L (94-97) % Hemoglobin 9.9 L (13.0-17.5) gm/dL Sodium (137-145) mmol/L BUN (9-20) mg/dL Creatinine (0.66-1.25) mg/dL Glucose (74-99) mg/dL POC Glucose (mg/dL) 237 H (70-110) mg/dL Calcium (8.4-10.2) mg/dL Ionized Calcium Antony 3.7 L (4.5-5.3) mg/dL Microbiology - Last 24 Hours (Table) 09/05/24 12:38 Gram Stain - Final Sputum Sputum Culture - Final 09/04/24 22:22 Urine Culture - Preliminary Urine,Voided Gram Neg Bacilli 09/05/24 14:30 Blood Culture - Preliminary Blood 09/04/24 17:04 Blood Culture Gram Stain - Preliminary Blood Blood Culture - Preliminary Enterobacter cloacae Complex Serratia marcescens Molecular ID Assessment and Plan Time with Patient: Less than 30
--- NOTE | 2024-09-08 07:47 | P.PN ---
Subjective Progress Note Date: 09/08/24 histpry of present illness: Patient is a 64-year-old male with past medical history significant for diabetes mellitus, chronic kidney disease, hyperlipidemia, hypertension, among other things. Patient is currently in the intensive care unit, he is a poor historian. Unable to provide reliable hi story. The ER provider did not contact me. Per the ER documentation, patient was found on the ground for an unknown known amount of time, last seen well 2 weeks prior by his sister. He was found to be in acute rhabdomyolysis with acute renal failure. He was also found with elevated blood sugars. CT of the brain and C-spine without contrast showing no acute intracranial process and no acute osseous abnormalities of the C-spine. Initial labs include a CBC: WBC count 17.3, hemoglobin 14.6, hematocrit 45.1, platelets 226. CMP: Sodium 136, potassium 5.7, chloride 95, serum bicarb 14, BUN 137, creatinine 8.82, glucose 578. Lactic 1.5. Magnesium 2.7. LFTs mildly elevated. Troponin 0.043. NT proBNP 4510. EKG: normal sinus rhythm, rate 88 bpm, incomplete RBB pattern, without obvious acute ischemic changes. Urine drug screen unremarkable. Serum ETOH < 10. Currently evaluating this patient in the intensive care unit. CPK was 7555 on arrival. Did receive 1.5 L normal saline bolus in in ED and started on normal saline at 130 ml/hr. Subsequently started on sodium bicarbonate infusion 3 A in D5W at 100 mL/h. urine output is in the order of 30 to 50 cc/h. Nephrology is managing. Repeat potassium is down to 4.7. On arrival blood glucose 578, serum bicarb 12, anion gap 27, acetone positive. Patient has also been started on insulin infusion Per protocol. He did develop some respiratory distress, breathing in the high 40s. I did ask for the pateint to be placed on BiPAP with settings 10/5 and FiO2 to be titrated appropriately. Chest x-ray showing cardiomegaly. There is a left midlung linear infiltrates concerning for atelectasis or early pneumonia. Patient does have bruising to his left lateral chest. It is painful to palpation without crepitus or subcutaneous emphysema. Patient was empirically started on antibiotics in the ED.Current vitals: 97.6 F, blood pressure 115/85 mmHg, heart rate 78 bpm, tachypneic breathing in the high 40s, SpO2 is 100% on BiPAP with settings 10/5 FiO2 100%. Prognosis is guarded. 09/06/24 - Patient seen at bedside this morning, remaining in the ICU, day 2 of hospitalization, admitted on 09/05/24 and in the ICU since that time. He was placed to mechanical ventilation with intubation yesterday (09/05/24). He is on assist-control with a rate of 20, volume 450, FiO2 40%, PEEP of 5. ABG this morning showed pO2 72, pCO2 34, pH 7.46, indicating respiratory alkalosis with relative hypoxemia. Initial improvement in his WBCs down to 13.6 (from 14.8) this morning, his hemoglobin decreased to 11.2. His BUN is 138, creatinine 7.6 1. Increase in AST, 3-4, and ALT, up to 113. Phosphorus 5.0, remaining 9, calcium 6.6, remaining well. Creatinine Kinase remains elevated, showing improvements, to 6149. His procalcitonin returned at > 100. His blood cultures were positive for Enterobacter cloacae without resistance noted, patient placed on cefepime - discontinued Rocephin and Zithromax. Patient remained Levophed at 0.09 mcg/kg/min (7.26 mcg/min) and propofol 40 mcg/kg/min. Blood pressure this morning 113/52. He will be started on vital HP 10 cc/h, with a goal being 37 cc/h. 09/07/24 - Patient seen at bedside today, remaining in the ICU, day 3 of hospitalization. Admitted on 09/05/24 and in the ICU since that time. He has been intubated on mechanical ventilation since 09/05/24. He remains on assist- control with a rate of 20, volume 450, FiO2 50% and a PEEP of 8. ABG this morning showed pO2 59, pCO2 34, pH 7.46 which indicated respiratory alkalosis with some metabolic alkalosis - this was done while the patient was on an FiO2 of 40%. At that time, patient's FiO2 was up to 50% and his PEEP was increased to 8, since that time he has been saturating well. This morning his WBCs are 9.9, hemoglobin 10.1, platelet count 76, sodium 134, BUN 88, creatinine 4.68, calcium 6.4 and ionized calcium 3.7. Most recent creatinine kinase 2760. Because of the patient's relative hypocalcemia he received 1 g of calcium gluconate. The CVP has been slightly elevated since its insertion, at the time of insertion read ~9, however when seen the patient it was reading 6 indicated the patient is likely euvolemic. Patient remains on Levophed 0.01 mcg/kg/min (8 mcg/min), and on propofol 40 mcg/kg/min and vital HP at 30 cc/h (goal of 37 cc/h). He remains on cefepime and lactated ringer 100 cc/h. His urine was positive, preliminarily, for gram-negative bacilli. Preliminary results of blood culture showed Enterobacter cloacae and Serratia marcescens. 09/08/24 - Patient seen at bedside today, remaining in the ICU, day 4 of hospitalization. Admitted on 09/05/24 and in the ICU since that time. He has been intubated and mechanically ventilated since 09/05/24. He remains on assist-control with a rate of 20, volume 450, FiO2 50% and PEEP of 8. ABG done this morning showed pO2 60, pCO2 32, pH 7.45 indicating a respiratory alkalosis with some evidence of metabolic alkalosis. Patient uneventful overnight. WBCs 10.2, hemoglobin 9.4, sodium 133, BUN 63, creatinine 3.91, calcium 6.7. Patient CVP has been elevated, most recently at 12, indicating some possible hypervolemia. Patient allan on propofol 30 mcg/kg/min, Levophed 0.23 mcg/kg/min (~19 mcg/min), and cefepime. Patient's hemodialysis yesterday, 500 cc was removed. Per the hemodialysis nurse, patient's blood pressure dropped at the start of treatment, leading to pressors being increased at that time. Urine culture now final, positive for Enterobacter cloacae. Blood culture remains preliminary at this time for Enterobacter cloacae and Serratia marcescens. REVIEW OF SYSTEMS: Unable to assess the patient allan intubated mechanically ventilated. PHYSICAL EXAMINATION: GENERAL: Patient currently intubated mechanically ventilated. HEENT:No scleral icterus. No conjunctival pallor. Normocephalic, atraumatic. CARDIOVASCULAR: S1 and S2 present. No murmurs, rubs, or gallops. PULMONARY: Chest is clear to auscultation, no wheezing or crackles. ABDOMEN: Soft, nontender, nondistended, normoactive bowel sounds. No palpable o rganomegaly. MUSCULOSKELETAL: No joint swelling or deformity. EXTREMITIES: No cyanosis, clubbing, or pedal edema. NEUROLOGICAL: Intubated, mechanically ventilated, sedated. Unable to fully assess. SKIN: No rashes. Assessment and plan #Acute hypoxic respiratory failure, requiring mechanical ventilation and intubation on 09/05/24 -Rate of 20, volume 450, FiO2 50%, PEEP of 8 -ABG this morning showed pO2 60, pCO2 32, pH 7.45 indicating respiratory alkalosis -Additionally indicating relative hypoxemia -Continue to monitor ABGs and adjust the settings of the ventilator as able and tolerated #Acute rhabdomyolysis, resolved #Acute kidney injury; Acute tubular necrosis #Elevated troponins, in setting of acute renal failure -Initial creatinine kinase 7555, increased to 9320, decreased to 6149 and decreased to 2760 -Patient had been on lactated ringer 100 cc/h -Nephrology consulted; consult made for temporary hemodialysis catheter to be placed -Received hemodialysis yesterday and had 500 cc removed -Will receive hemodialysis this morning with increased UF to ~1 as tolerated #Sepsis, verified Enterobacter cloacae infection #Hypertension, secondary to above -WBCs remain elevated, Tmax 102.2 F (09/05/24) -Blood cultures preliminarily positive for Enterobacter Cloacae and Serratia marcescens -Urine culture verified, final culture, positive for gram-negative bacilli -Patient started on cefepime 1 g daily; discontinued Rocephin and Zithromax -Patient maintained on Levophed 0.23 mcg/kg/min (~19 mcg/min) -Infectious disease consulted #Mechanical fall, is on home 2 weeks prior -CT of the brain and CT spine without contrast showed no acute intracranial process and no acute osseous abnormalities in the C-spine #Hyperkalemia, resolved #Anion gap metabolic acidosis, resolved #Hyperphosphatemia, improving #Hypocalcemia likely secondary to decreased albumin -Received supplementation on 09/07/24 -Continue to monitor BMP #Hx of HTN #Hx of HLD #Hx of T2DM #Chronic kidney disease stage IIIb #Hx of frequent UTIs GI prophylaxis: DVT Prophylaxis: 5000 units heparin SQ every 12 hours Dictation was produced using dragon dictation software. please excuse any grammatical, word or spelling errors. Objective - Vital Signs Vital signs: Vital Signs Temp 98.0 F 09/08/24 04:00 Pulse 92 09/08/24 06:00 Resp 20 09/08/24 06:00 BP 135/62 09/07/24 13:52 Pulse Ox 93 L 09/08/24 06:00 FiO2 50 09/08/24 04:00 Intake & Output 09/07/24 09/08/24 09/08/24 18:59 06:59 18:59 Intake Total 1843.910 794.723 85.713 Output Total 1605 220 5 Balance 238.910 574.723 80.713 Weight 82.3 kg Intake: IV 373 156 13 A Line 33 36 3 Cefepime 1 gm In Sodium 100 Chloride 0.9% 50 ml @ 12. 5 mls/hr IVPB DAILY [facility] Rx#:[id number] LR 240 120 10 Intake, IV Titration 598.910 601.723 72.713 Amount Norepinephrine 4 mg In 365.110 187.548 Sodium Chloride 0.9% 250 ml @ 0.03 MCG/KG/MIN 8. 573 mls/hr IV .Q24H [facility] Rx#:[id number] Norepinephrine 8 mg In 301.500 Sodium Chloride 0.9% 250 ml @ 0.03 MCG/KG/MIN 4. 737 mls/hr IV .Q24H [facility] Rx#:[id number] propofoL 1,000 mg In 233.800 112.675 72.713 Empty Bag 1 bag @ 15 MCG/ KG/MIN 6.75 mls/hr IV . [id number] [facility] Rx#:[id number] Tube Feeding 372 37 Hemodialysis 500 Output: Urine 105 120 5 Oral Regurgitation 100 Hemodialysis 1000 Hemodialysis Net Amount 500 Other: Voiding Method Indwelling Catheter Indwelling Catheter # Bowel Movements 1 ABP, PAP, CO, CI - Last Documented Arterial Blood Pressure 114/50 - Labs CBC & Chem 7: 09/08/24 05:00 09/08/24 05:00 Labs: Abnormal Lab Results - Last 24 Hours (Table) 09/07/24 09/07/24 09/07/24 Range/Units 09:30 11:35 17:38 RBC (4.30-5.90) m/uL Hgb (13.0-17.5) gm/dL Hct (39.0-53.0) % Plt Count (150-450) k/uL ABG pCO2 (35-45) mmHg ABG pO2 (83-108) mmHg ABG O2 Saturation (94-97) % Hemoglobin (13.0-17.5) gm/dL Sodium (137-145) mmol/L Carbon Dioxide (22-30) mmol/L BUN (9-20) mg/dL Creatinine (0.66-1.25) mg/dL Glucose (74-99) mg/dL POC Glucose (mg/dL) 148 H 208 H (70-110) mg/dL Calcium (8.4-10.2) mg/dL Total Bilirubin (0.2-1.3) mg/dL AST (17-59) U/L ALT (4-49) U/L Alkaline Phosphatase (38-126) U/L Creatine Kinase 2760 H* (55-170) U/L Total Protein (6.3-8.2) g/dL Albumin (3.5-5.0) g/dL 09/08/24 09/08/24 09/08/24 Range/Units 00:14 05:00 05:00 RBC 3.11 L (4.30-5.90) m/uL Hgb 9.4 L (13.0-17.5) gm/dL Hct 28.1 L (39.0-53.0) % Plt Count 87 L (150-450) k/uL ABG pCO2 32 L (35-45) mmHg ABG pO2 60 L (83-108) mmHg ABG O2 Saturation 92.3 L (94-97) % Hemoglobin 9.8 L (13.0-17.5) gm/dL Sodium (137-145) mmol/L Carbon Dioxide (22-30) mmol/L BUN (9-20) mg/dL Creatinine (0.66-1.25) mg/dL Glucose (74-99) mg/dL POC Glucose (mg/dL) 174 H (70-110) mg/dL Calcium (8.4-10.2) mg/dL Total Bilirubin (0.2-1.3) mg/dL AST (17-59) U/L ALT (4-49) U/L Alkaline Phosphatase (38-126) U/L Creatine Kinase (55-170) U/L Total Protein (6.3-8.2) g/dL Albumin (3.5-5.0) g/dL 09/08/24 09/08/24 Range/Units 05:00 05:52 RBC (4.30-5.90) m/uL Hgb (13.0-17.5) gm/dL Hct (39.0-53.0) % Plt Count (150-450) k/uL ABG pCO2 (35-45) mmHg ABG pO2 (83-108) mmHg ABG O2 Saturation (94-97) % Hemoglobin (13.0-17.5) gm/dL Sodium 133 L (137-145) mmol/L Carbon Dioxide 20 L (22-30) mmol/L BUN 63 H (9-20) mg/dL Creatinine 3.91 H (0.66-1.25) mg/dL Glucose 274 H (74-99) mg/dL POC Glucose (mg/dL) 295 H (70-110) mg/dL Calcium 6.7 L (8.4-10.2) mg/dL Total Bilirubin 4.9 H (0.2-1.3) mg/dL AST 96 H (17-59) U/L ALT 52 H (4-49) U/L Alkaline Phosphatase 177 H (38-126) U/L Creatine Kinase (55-170) U/L Total Protein 4.3 L (6.3-8.2) g/dL Albumin 1.8 L (3.5-5.0) g/dL Microbiology - Last 24 Hours (Table) 09/04/24 22:22 Urine Culture - Final Urine,Voided Enterobacter cloacae 09/05/24 14:30 Blood Culture - Preliminary Blood 09/05/24 12:38 Gram Stain - Final Sputum Sputum Culture - Final
[2024-09-08] MEDS: INSULIN DETEMIR (LEVEMIR) 100 UNIT/ML SYR SQ SCH ×2 (09:50→19:39)
[2024-09-08] MEDS: ALTEPLASE 2 MG VIAL (CATHFLO) IV STA ×2 (09:53→09:54)
[2024-09-08 09:58] LABS: Glucose,Whole Blood 175 mg/dL (70-110)
[2024-09-08 11:53] LABS: Glucose,Whole Blood 214 mg/dL (70-110)
--- NOTE | 2024-09-08 12:02 | P.PN ---
Subjective patient is seen for follow-up for acute kidney injury. Patient remains on the vent. FiO2 at 40% Urine output at 0-10 ml/hr. Started on dialysis on 09/06/2024 dialysis catheter had very poor flows of around 200 today. UF 600 ML today Objective - Vital Signs Vital signs: Vital Signs Temp 96.5 F L 09/08/24 10:30 Pulse 93 09/08/24 11:52 Resp 35 H 09/08/24 11:00 BP 144/58 09/08/24 10:30 Pulse Ox 93 L 09/08/24 11:00 FiO2 50 09/08/24 11:53 Intake & Output 09/07/24 09/08/24 09/08/24 18:59 06:59 18:59 Intake Total 1843.910 741.297 2764.000 Output Total 7178 950 6592 Balance 238.910 574.723 160.000 Weight 82.3 kg Intake: IV 373 156 65 A Line 33 36 15 Cefepime 1 gm In Sodium 100 Chloride 0.9% 50 ml @ 12. 5 mls/hr IVPB DAILY [facility] Rx#:[id number] LR 240 120 50 Intake, IV Titration 598.910 601.723 100.000 Amount Norepinephrine 4 mg In 365.110 187.548 Sodium Chloride 0.9% 250 ml @ 0.03 MCG/KG/MIN 8. 573 mls/hr IV .Q24H [facility] Rx#:[id number] Norepinephrine 8 mg In 301.500 Sodium Chloride 0.9% 250 ml @ 0.03 MCG/KG/MIN 4. 737 mls/hr IV .Q24H [facility] Rx#:[id number] propofoL 1,000 mg In 233.800 112.675 100.000 Empty Bag 1 bag @ 15 MCG/ KG/MIN 6.75 mls/hr IV . [id number] [facility] Rx#:[id number] Tube Feeding 372 37 Hemodialysis 500 1400 Output: Urine 105 120 5 Oral Regurgitation 100 Hemodialysis 1000 800 Hemodialysis Net Amount 500 600 Other: Voiding Method Indwelling Catheter Indwelling Catheter Indwelling Catheter # Bowel Movements 1 ABP, PAP, CO, CI - Last Documented Arterial Blood Pressure 135/55 - Exam Patient is sedated and intubated. Examination of the heart S1 and S2 Examination of the lungs bilateral breath sounds are heard Abdomen is soft nontender Examination of lower extremities shows no significant edema - Labs CBC & Chem 7: 09/08/24 05:00 09/08/24 05:00 Labs: Abnormal Lab Results - Last 24 Hours (Table) 09/07/24 09/08/24 09/08/24 Range/Units 17:38 00:14 05:00 RBC (4.30-5.90) m/uL Hgb (13.0-17.5) gm/dL Hct (39.0-53.0) % Plt Count (150-450) k/uL ABG pCO2 32 L (35-45) mmHg ABG pO2 60 L (83-108) mmHg ABG O2 Saturation 92.3 L (94-97) % Hemoglobin 9.8 L (13.0-17.5) gm/dL Sodium (137-145) mmol/L Carbon Dioxide (22-30) mmol/L BUN (9-20) mg/dL Creatinine (0.66-1.25) mg/dL Glucose (74-99) mg/dL POC Glucose (mg/dL) 208 H 174 H (70-110) mg/dL Calcium (8.4-10.2) mg/dL Total Bilirubin (0.2-1.3) mg/dL AST (17-59) U/L ALT (4-49) U/L Alkaline Phosphatase (38-126) U/L Total Protein (6.3-8.2) g/dL Albumin (3.5-5.0) g/dL 09/08/24 09/08/24 09/08/24 Range/Units 05:00 05:00 05:52 RBC 3.11 L (4.30-5.90) m/uL Hgb 9.4 L (13.0-17.5) gm/dL Hct 28.1 L (39.0-53.0) % Plt Count 87 L (150-450) k/uL ABG pCO2 (35-45) mmHg ABG pO2 (83-108) mmHg ABG O2 Saturation (94-97) % Hemoglobin (13.0-17.5) gm/dL Sodium 133 L (137-145) mmol/L Carbon Dioxide 20 L (22-30) mmol/L BUN 63 H (9-20) mg/dL Creatinine 3.91 H (0.66-1.25) mg/dL Glucose 274 H (74-99) mg/dL POC Glucose (mg/dL) 295 H (70-110) mg/dL Calcium 6.7 L (8.4-10.2) mg/dL Total Bilirubin 4.9 H (0.2-1.3) mg/dL AST 96 H (17-59) U/L ALT 52 H (4-49) U/L Alkaline Phosphatase 177 H (38-126) U/L Total Protein 4.3 L (6.3-8.2) g/dL Albumin 1.8 L (3.5-5.0) g/dL 09/08/24 09/08/24 Range/Units 09:57 11:52 RBC (4.30-5.90) m/uL Hgb (13.0-17.5) gm/dL Hct (39.0-53.0) % Plt Count (150-450) k/uL ABG pCO2 (35-45) mmHg ABG pO2 (83-108) mmHg ABG O2 Saturation (94-97) % Hemoglobin (13.0-17.5) gm/dL Sodium (137-145) mmol/L Carbon Dioxide (22-30) mmol/L BUN (9-20) mg/dL Creatinine (0.66-1.25) mg/dL Glucose (74-99) mg/dL POC Glucose (mg/dL) 175 H 214 H (70-110) mg/dL Calcium (8.4-10.2) mg/dL Total Bilirubin (0.2-1.3) mg/dL AST (17-59) U/L ALT (4-49) U/L Alkaline Phosphatase (38-126) U/L Total Protein (6.3-8.2) g/dL Albumin (3.5-5.0) g/dL Microbiology - Last 24 Hours (Table) 09/04/24 22:22 Urine Culture - Final Urine,Voided Enterobacter cloacae 09/05/24 14:30 Blood Culture - Preliminary Blood 09/05/24 12:38 Gram Stain - Final Sputum Sputum Culture - Final Assessment and Plan Assessment: 1. Acute kidney injury ATN from hypotension, underlying infection and rhabdomyolysis, initially nonoliguric currently oliguric secondary to worsening hypotension. Maintained on vasopressors and status post IV fluid boluses. UA is suggestive of UTI. Started hemodialysis on 09/06/2024 2. Anion gap metabolic acidosis secondary to diabetic ketoacidosis and acute kidney injury, status post bicarb drip 3. Rhabdomyolysis with CK trending down 4. Acute hypoxic respiratory failure 5. Hyperkalemia associated with acute kidney injury, metabolic acidosis and rhabdomyolysis 6. History of right renal mass with previous MRI in 2022 showing enlarging lesion in the right kidney. This was not seen clearly on ultrasound performed this admission. Patient will need further evaluation and follow-up down the road. Plan: continue off of IV fluids Repeat hemodialysis on 09/10/2024 Continue with antibiotics and pressor support Further evaluation of right renal mass down the road
--- NOTE | 2024-09-08 12:25 | P.PN ---
Subjective Progress Note Date: 09/08/24 The patient is a 64-year-old male who presented to the hospital after a mechanical fall, subsequently suffering from rhabdomyolysis, metabolic encephalopathy and acute hypoxic respiratory failure. Cardiology has been consulted for congestive heart failure and elevated troponins. Patient has been intubated for airway protection and is undergoing bedside dialysis. Echocardiogram has revealed reduced LV function at 30-35%. Lab work over the last 24 hours has significantly improved with dialysis. Patient remains intubated and sedated on ventilator. GENERAL: Well-appearing, well-nourished and in no acute distress. Sedated on ventilator NECK: Supple without JVD or thyromegaly. LUNGS: Breath sounds diminished to auscultation bilaterally. Respiration equal and unlabored. No wheezes rales or rhonchi. HEART: Regular rate and rhythm without murmurs, rubs or gallops. S1 and S2 heard. EXTREMITIES: Normal range of motion, +1 edema. No clubbing or cyanosis. Peripheral pulses intact and strong. TELEMETRY: Sinus rhythm to sinus tachycardia, rates in the 90's LABS: WBC 10.2, hemoglobin 9.4, hematocrit 28.1, platelet 87, sodium 133, potassium 3.9, BUN 63, creatinine 3.91, AST 96, ALT 52, ALP 177 IMPRESSION: Metabolic encephalopathy Sepsis Thrombocytopenia Acute hypoxic respiratory failure Acute rhabdomyolysis Systolic heart failure Acute kidney injury Troponin elevation, likely type II myocardial infarction History of diabetes PLAN: Continue supportive treatment Start low-dose statin with elevated troponins Resume beta-blockers once off Levophed No further recommendations from the cardiac standpoint I am dictating on behalf of Dr Chucho Aguilera's history/physical and assessment/plan. Objective - Vital Signs Vital signs: Vital Signs Temp 98.0 F 09/08/24 04:00 Pulse 93 09/08/24 08:38 Resp 20 09/08/24 06:00 BP 135/62 09/07/24 13:52 Pulse Ox 93 L 09/08/24 06:00 FiO2 50 09/08/24 08:34 Intake & Output 09/07/24 09/08/24 09/08/24 18:59 06:59 18:59 Intake Total 1843.910 794.723 113.000 Output Total 1605 220 5 Balance 238.910 574.723 108.000 Weight 82.3 kg Intake: IV 373 156 13 A Line 33 36 3 Cefepime 1 gm In Sodium 100 Chloride 0.9% 50 ml @ 12. 5 mls/hr IVPB DAILY [facility] Rx#:[id number] LR 240 120 10 Intake, IV Titration 598.910 601.723 100.000 Amount Norepinephrine 4 mg In 365.110 187.548 Sodium Chloride 0.9% 250 ml @ 0.03 MCG/KG/MIN 8. 573 mls/hr IV .Q24H [facility] Rx#:[id number] Norepinephrine 8 mg In 301.500 Sodium Chloride 0.9% 250 ml @ 0.03 MCG/KG/MIN 4. 737 mls/hr IV .Q24H [facility] Rx#:[id number] propofoL 1,000 mg In 233.800 112.675 100.000 Empty Bag 1 bag @ 15 MCG/ KG/MIN 6.75 mls/hr IV . [id number] [facility] Rx#:[id number] Tube Feeding 372 37 Hemodialysis 500 Output: Urine 105 120 5 Oral Regurgitation 100 Hemodialysis 1000 Hemodialysis Net Amount 500 Other: Voiding Method Indwelling Catheter Indwelling Catheter # Bowel Movements 1 ABP, PAP, CO, CI - Last Documented Arterial Blood Pressure 114/50 - Labs CBC & Chem 7: 09/08/24 05:00 09/08/24 05:00 Labs: Abnormal Lab Results - Last 24 Hours (Table) 09/07/24 09/07/24 09/07/24 Range/Units 09:30 11:35 17:38 RBC (4.30-5.90) m/uL Hgb (13.0-17.5) gm/dL Hct (39.0-53.0) % Plt Count (150-450) k/uL ABG pCO2 (35-45) mmHg ABG pO2 (83-108) mmHg ABG O2 Saturation (94-97) % Hemoglobin (13.0-17.5) gm/dL Sodium (137-145) mmol/L Carbon Dioxide (22-30) mmol/L BUN (9-20) mg/dL Creatinine (0.66-1.25) mg/dL Glucose (74-99) mg/dL POC Glucose (mg/dL) 148 H 208 H (70-110) mg/dL Calcium (8.4-10.2) mg/dL Total Bilirubin (0.2-1.3) mg/dL AST (17-59) U/L ALT (4-49) U/L Alkaline Phosphatase (38-126) U/L Creatine Kinase 2760 H* (55-170) U/L Total Protein (6.3-8.2) g/dL Albumin (3.5-5.0) g/dL 09/08/24 09/08/24 09/08/24 Range/Units 00:14 05:00 05:00 RBC 3.11 L (4.30-5.90) m/uL Hgb 9.4 L (13.0-17.5) gm/dL Hct 28.1 L (39.0-53.0) % Plt Count 87 L (150-450) k/uL ABG pCO2 32 L (35-45) mmHg ABG pO2 60 L (83-108) mmHg ABG O2 Saturation 92.3 L (94-97) % Hemoglobin 9.8 L (13.0-17.5) gm/dL Sodium (137-145) mmol/L Carbon Dioxide (22-30) mmol/L BUN (9-20) mg/dL Creatinine (0.66-1.25) mg/dL Glucose (74-99) mg/dL POC Glucose (mg/dL) 174 H (70-110) mg/dL Calcium (8.4-10.2) mg/dL Total Bilirubin (0.2-1.3) mg/dL AST (17-59) U/L ALT (4-49) U/L Alkaline Phosphatase (38-126) U/L Creatine Kinase (55-170) U/L Total Protein (6.3-8.2) g/dL Albumin (3.5-5.0) g/dL 09/08/24 09/08/24 09/08/24 Range/Units 05:00 05:52 09:57 RBC (4.30-5.90) m/uL Hgb (13.0-17.5) gm/dL Hct (39.0-53.0) % Plt Count (150-450) k/uL ABG pCO2 (35-45) mmHg ABG pO2 (83-108) mmHg ABG O2 Saturation (94-97) % Hemoglobin (13.0-17.5) gm/dL Sodium 133 L (137-145) mmol/L Carbon Dioxide 20 L (22-30) mmol/L BUN 63 H (9-20) mg/dL Creatinine 3.91 H (0.66-1.25) mg/dL Glucose 274 H (74-99) mg/dL POC Glucose (mg/dL) 295 H 175 H (70-110) mg/dL Calcium 6.7 L (8.4-10.2) mg/dL Total Bilirubin 4.9 H (0.2-1.3) mg/dL AST 96 H (17-59) U/L ALT 52 H (4-49) U/L Alkaline Phosphatase 177 H (38-126) U/L Creatine Kinase (55-170) U/L Total Protein 4.3 L (6.3-8.2) g/dL Albumin 1.8 L (3.5-5.0) g/dL Microbiology - Last 24 Hours (Table) 09/04/24 22:22 Urine Culture - Final Urine,Voided Enterobacter cloacae 09/05/24 14:30 Blood Culture - Preliminary Blood 09/05/24 12:38 Gram Stain - Final Sputum Sputum Culture - Final
[2024-09-08] MEDS ORDERED: IOPAMIDOL CONTRAST (ORAL USE) VIAL PO PRN (12:48)
--- NOTE | 2024-09-08 12:48 | P.PN ---
Subjective Progress Note Date: 09/08/24 Principal diagnosis: Reason for follow-up is sepsis and bacteremia Patient is a 64-year-old male with a past medical history significant for diabetes mellitus hyperlipidemia, chronic kidney disease patient has been brought to the hospital after the patient was found on the ground for unknown amount of time patient was noted to be septic requiring admission to the ICU on the ventilator subsequent did have a positive blood culture with Enterobacter. On today's evaluation that is 09/08/2024, patient did have resolution of his fever and the patient is afebrile this morning patient is hemodynamically stable patient remains to be debated on the vent FiO2 is down to 40% no significant purulent secretion the 90 on 818 reported by the nursing staff. Patient white count is 10.2 creatinine 3.91, urine is growing Enterobacter blood culture with Enterobacter and Serratia Objective - Vital Signs Vital signs: Vital Signs Temp 98.4 F 09/08/24 12:00 Pulse 94 09/08/24 12:16 Resp 36 H 09/08/24 12:00 BP 144/58 09/08/24 10:30 Pulse Ox 94 L 09/08/24 12:00 FiO2 40 09/08/24 12:00 Intake & Output 09/07/24 09/08/24 09/08/24 18:59 06:59 18:59 Intake Total 1843.910 119.379 8744.000 Output Total 6829 351 1499 Balance 238.910 574.723 173.000 Weight 82.3 kg Intake: IV 373 156 78 A Line 33 36 18 Cefepime 1 gm In Sodium 100 Chloride 0.9% 50 ml @ 12. 5 mls/hr IVPB DAILY [facility] Rx#:[id number] LR 240 120 60 Intake, IV Titration 598.910 601.723 100.000 Amount Norepinephrine 4 mg In 365.110 187.548 Sodium Chloride 0.9% 250 ml @ 0.03 MCG/KG/MIN 8. 573 mls/hr IV .Q24H [facility] Rx#:[id number] Norepinephrine 8 mg In 301.500 Sodium Chloride 0.9% 250 ml @ 0.03 MCG/KG/MIN 4. 737 mls/hr IV .Q24H [facility] Rx#:[id number] propofoL 1,000 mg In 233.800 112.675 100.000 Empty Bag 1 bag @ 15 MCG/ KG/MIN 6.75 mls/hr IV . [id number] [facility] Rx#:[id number] Tube Feeding 372 37 Hemodialysis 500 1400 Output: Urine 105 120 5 Oral Regurgitation 100 Hemodialysis 1000 800 Hemodialysis Net Amount 500 600 Other: Voiding Method Indwelling Catheter Indwelling Catheter Indwelling Catheter # Bowel Movements 1 ABP, PAP, CO, CI - Last Documented Arterial Blood Pressure 115/48 - Exam GENERAL DESCRIPTION: An elderly male intubated on the vent RESPIRATORY SYSTEM: Unlabored breathing , decreased breath sounds at bases HEART: S1 S2 regular rate and rhythm , ABDOMEN: Soft , no tenderness EXTREMITIES: No edema feet - Labs CBC & Chem 7: 09/08/24 05:00 09/08/24 05:00 Labs: Abnormal Lab Results - Last 24 Hours (Table) 09/07/24 09/08/24 09/08/24 Range/Units 17:38 00:14 05:00 RBC (4.30-5.90) m/uL Hgb (13.0-17.5) gm/dL Hct (39.0-53.0) % Plt Count (150-450) k/uL ABG pCO2 32 L (35-45) mmHg ABG pO2 60 L (83-108) mmHg ABG O2 Saturation 92.3 L (94-97) % Hemoglobin 9.8 L (13.0-17.5) gm/dL Sodium (137-145) mmol/L Carbon Dioxide (22-30) mmol/L BUN (9-20) mg/dL Creatinine (0.66-1.25) mg/dL Glucose (74-99) mg/dL POC Glucose (mg/dL) 208 H 174 H (70-110) mg/dL Calcium (8.4-10.2) mg/dL Total Bilirubin (0.2-1.3) mg/dL AST (17-59) U/L ALT (4-49) U/L Alkaline Phosphatase (38-126) U/L Total Protein (6.3-8.2) g/dL Albumin (3.5-5.0) g/dL 09/08/24 09/08/24 09/08/24 Range/Units 05:00 05:00 05:52 RBC 3.11 L (4.30-5.90) m/uL Hgb 9.4 L (13.0-17.5) gm/dL Hct 28.1 L (39.0-53.0) % Plt Count 87 L (150-450) k/uL ABG pCO2 (35-45) mmHg ABG pO2 (83-108) mmHg ABG O2 Saturation (94-97) % Hemoglobin (13.0-17.5) gm/dL Sodium 133 L (137-145) mmol/L Carbon Dioxide 20 L (22-30) mmol/L BUN 63 H (9-20) mg/dL Creatinine 3.91 H (0.66-1.25) mg/dL Glucose 274 H (74-99) mg/dL POC Glucose (mg/dL) 295 H (70-110) mg/dL Calcium 6.7 L (8.4-10.2) mg/dL Total Bilirubin 4.9 H (0.2-1.3) mg/dL AST 96 H (17-59) U/L ALT 52 H (4-49) U/L Alkaline Phosphatase 177 H (38-126) U/L Total Protein 4.3 L (6.3-8.2) g/dL Albumin 1.8 L (3.5-5.0) g/dL 09/08/24 09/08/24 Range/Units 09:57 11:52 RBC (4.30-5.90) m/uL Hgb (13.0-17.5) gm/dL Hct (39.0-53.0) % Plt Count (150-450) k/uL ABG pCO2 (35-45) mmHg ABG pO2 (83-108) mmHg ABG O2 Saturation (94-97) % Hemoglobin (13.0-17.5) gm/dL Sodium (137-145) mmol/L Carbon Dioxide (22-30) mmol/L BUN (9-20) mg/dL Creatinine (0.66-1.25) mg/dL Glucose (74-99) mg/dL POC Glucose (mg/dL) 175 H 214 H (70-110) mg/dL Calcium (8.4-10.2) mg/dL Total Bilirubin (0.2-1.3) mg/dL AST (17-59) U/L ALT (4-49) U/L Alkaline Phosphatase (38-126) U/L Total Protein (6.3-8.2) g/dL Albumin (3.5-5.0) g/dL Microbiology - Last 24 Hours (Table) 09/04/24 22:22 Urine Culture - Final Urine,Voided Enterobacter cloacae 09/05/24 14:30 Blood Culture - Preliminary Blood 09/05/24 12:38 Gram Stain - Final Sputum Sputum Culture - Final Assessment and Plan (1) Sepsis Current Visit: Yes Status: Acute Code(s): A41.9 - SEPSIS, UNSPECIFIED ORGANISM SNOMED Code(s): 89869616 (2) Pneumonia Current Visit: Yes Status: Acute Code(s): J18.9 - PNEUMONIA, UNSPECIFIED ORGANISM SNOMED Code(s): 030809270 (3) UTI (urinary tract infection) Current Visit: No Status: Acute Code(s): N39.0 - URINARY TRACT INFECTION, SITE NOT SPECIFIED SNOMED Code(s): 05178322 Plan: 1patient with sepsis in this patient who did have a fever hyortension requiring pressor support maintaining criteria for SIRS source is likely UTI pneumonia not entirely excluded 2-blood culture came back positive with Enterobacter and Serratia, urine is growing gram-negative 3-patient is covered with cefepime awaiting finalization of the blood cultures, we will get CT abdominal pelvis to make sure no GI source for this polymicrobial bacteremia Dictation was produced using [employer] dictation software. please excuse any grammatical, word or spelling errors. Time with Patient: Less than 30
--- NOTE | 2024-09-08 12:48 | P.PN ---
Subjective Progress Note Date: 09/07/24 Principal diagnosis: Reason for follow-up is sepsis and bacteremia Patient is a 64-year-old male with a past medical history significant for diabetes mellitus hyperlipidemia, chronic kidney disease patient has been brought to the hospital after the patient was found on the ground for unknown amount of time patient was noted to be septic requiring admission to the ICU on the ventilator subsequent did have a positive blood culture with Enterobacter. On today's evaluation that is 09/07/2024, the patient did have a low-grade fever 100 F this morning patient is afebrile since then patient remains to be intubated on the vent FiO2 is currently at 50% no significant purulent secretions in the ED or any other changes reported by the nursing staff. Patient white count normalized to 9.9 creatinine is 4.68 Objective - Vital Signs Vital signs: Vital Signs Temp 100.0 F H 09/07/24 08:00 Pulse 84 09/07/24 09:33 Resp 29 H 09/07/24 08:00 BP 114/56 09/06/24 16:16 Pulse Ox 96 09/07/24 08:00 FiO2 50 09/07/24 10:12 Intake & Output 09/06/24 09/07/24 09/07/24 18:59 06:59 18:59 Intake Total 2390.164 2450.874 498.858 Output Total 800 215 30 Balance 9524.952 9732.874 468.858 Weight 80.7 kg 81.6 kg Intake: IV 1300 1436 306 A Line 36 6 Calcium Gluconate in NaCl 100 1 gm In Saline 1 100ml. bag @ 100 mls/hr IVPB ONCE ONE Rx#:[id number] Cefepime 1 gm In Sodium 100 100 Chloride 0.9% 50 ml @ 12. 5 mls/hr IVPB DAILY [facility] Rx#:[id number] LR 1200 1300 200 Intake, IV Titration 500.164 614.874 132.858 Amount Norepinephrine 4 mg In 346.764 389.199 40.72 Sodium Chloride 0.9% 250 ml @ 0.03 MCG/KG/MIN 8. 573 mls/hr IV .Q24H [facility] Rx#:[id number] propofoL 1,000 mg In 153.4 225.675 92.138 Empty Bag 1 bag @ 15 MCG/ KG/MIN 6.75 mls/hr IV . [id number] [facility] Rx#:[id number] Tube Feeding 90 310 60 Hemodialysis 500 Other 90 Output: Urine 300 215 30 Hemodialysis 500 Hemodialysis Net Amount 0 Other: Voiding Method Indwelling Catheter Indwelling Catheter Indwelling Catheter # Bowel Movements 1 ABP, PAP, CO, CI - Last Documented Arterial Blood Pressure 110/55 - Exam GENERAL DESCRIPTION: An elderly male intubated on the vent RESPIRATORY SYSTEM: Unlabored breathing , decreased breath sounds at bases HEART: S1 S2 regular rate and rhythm , ABDOMEN: Soft , no tenderness EXTREMITIES: No edema feet - Labs CBC & Chem 7: 09/08/24 05:00 09/08/24 05:00 Labs: Abnormal Lab Results - Last 24 Hours (Table) 09/06/24 09/06/24 09/06/24 Range/Units 11:28 16:13 17:50 RBC (4.30-5.90) m/uL Hgb (13.0-17.5) gm/dL Hct (39.0-53.0) % Plt Count (150-450) k/uL ABG pH (7.35-7.45) ABG pCO2 (35-45) mmHg ABG pO2 (83-108) mmHg ABG Total CO2 (19-24) mmol/L ABG O2 Saturation (94-97) % Hemoglobin (13.0-17.5) gm/dL Sodium (137-145) mmol/L BUN (9-20) mg/dL Creatinine (0.66-1.25) mg/dL Glucose (74-99) mg/dL POC Glucose (mg/dL) 168 H 143 H 166 H (70-110) mg/dL Calcium (8.4-10.2) mg/dL Ionized Calcium Antony (4.5-5.3) mg/dL Creatine Kinase (55-170) U/L 09/06/24 09/07/24 09/07/24 Range/Units 23:56 04:40 04:40 RBC 3.29 L (4.30-5.90) m/uL Hgb 10.1 L (13.0-17.5) gm/dL Hct 29.6 L (39.0-53.0) % Plt Count 76 L (150-450) k/uL ABG pH (7.35-7.45) ABG pCO2 (35-45) mmHg ABG pO2 (83-108) mmHg ABG Total CO2 (19-24) mmol/L ABG O2 Saturation (94-97) % Hemoglobin (13.0-17.5) gm/dL Sodium 134 L (137-145) mmol/L BUN 88 H (9-20) mg/dL Creatinine 4.68 H (0.66-1.25) mg/dL Glucose 176 H (74-99) mg/dL POC Glucose (mg/dL) 273 H (70-110) mg/dL Calcium 6.4 L* (8.4-10.2) mg/dL Ionized Calcium Antony (4.5-5.3) mg/dL Creatine Kinase (55-170) U/L 09/07/24 09/07/24 09/07/24 Range/Units 05:17 05:25 05:55 RBC (4.30-5.90) m/uL Hgb (13.0-17.5) gm/dL Hct (39.0-53.0) % Plt Count (150-450) k/uL ABG pH 7.46 H (7.35-7.45) ABG pCO2 34 L (35-45) mmHg ABG pO2 59 L* (83-108) mmHg ABG Total CO2 26 H (19-24) mmol/L ABG O2 Saturation 91.4 L (94-97) % Hemoglobin 9.9 L (13.0-17.5) gm/dL Sodium (137-145) mmol/L BUN (9-20) mg/dL Creatinine (0.66-1.25) mg/dL Glucose (74-99) mg/dL POC Glucose (mg/dL) 237 H (70-110) mg/dL Calcium (8.4-10.2) mg/dL Ionized Calcium Antony 3.7 L (4.5-5.3) mg/dL Creatine Kinase (55-170) U/L 09/07/24 Range/Units 09:30 RBC (4.30-5.90) m/uL Hgb (13.0-17.5) gm/dL Hct (39.0-53.0) % Plt Count (150-450) k/uL ABG pH (7.35-7.45) ABG pCO2 (35-45) mmHg ABG pO2 (83-108) mmHg ABG Total CO2 (19-24) mmol/L ABG O2 Saturation (94-97) % Hemoglobin (13.0-17.5) gm/dL Sodium (137-145) mmol/L BUN (9-20) mg/dL Creatinine (0.66-1.25) mg/dL Glucose (74-99) mg/dL POC Glucose (mg/dL) (70-110) mg/dL Calcium (8.4-10.2) mg/dL Ionized Calcium Antony (4.5-5.3) mg/dL Creatine Kinase 2760 H* (55-170) U/L Microbiology - Last 24 Hours (Table) 09/05/24 12:38 Gram Stain - Final Sputum Sputum Culture - Final 09/04/24 22:22 Urine Culture - Preliminary Urine,Voided Gram Neg Bacilli 09/05/24 14:30 Blood Culture - Preliminary Blood 09/04/24 17:04 Blood Culture Gram Stain - Preliminary Blood Blood Culture - Preliminary Enterobacter cloacae Complex Serratia marcescens Molecular ID Assessment and Plan (1) Sepsis Current Visit: Yes Status: Acute Code(s): A41.9 - SEPSIS, UNSPECIFIED ORGANISM SNOMED Code(s): 73469042 (2) Pneumonia Current Visit: Yes Status: Acute Code(s): J18.9 - PNEUMONIA, UNSPECIFIED ORGANISM SNOMED Code(s): 882633056 (3) UTI (urinary tract infection) Current Visit: No Status: Acute Code(s): N39.0 - URINARY TRACT INFECTION, SITE NOT SPECIFIED SNOMED Code(s): 82551610 Plan: 1patient with sepsis in this patient who did have a fever hyortension requiring pressor support maintaining criteria for SIRS source is likely UTI pneumonia not entirely excluded 2-blood culture came back positive with Enterobacter and Serratia, urine is growing gram-negative 3-patient is currently being treated with the cefepime awaiting sensitivity once hemodynamically stable will recommend CT abdominal pelvis Dictation was produced using [employer] dictation software. please excuse any grammatical, word or spelling errors. Time with Patient: Less than 30
--- NOTE | 2024-09-08 13:17 | P.PN ---
Subjective Progress Note Date: 09/08/24 This is a 64-year-old male with medical history significant for hyperlipidemia, diabetes mellitus, heart failure, chronic kidney disease, hypertension. Medical history is obtained from the patient's sister who is at the bedside. Patient is currently on the mechanical ventilator. Patient presented to the hospital yesterday afternoon after being found on the ground responsive by family. Sister states that she goes over to the patient's house every Tuesday to set up his medications for the week. Patient had another family member in the room states that they had spoken over the phone on . When patient's sister arrived to the house on Tuesday after not hearing from him for a few days she f ound him on the ground unresponsive and states that none of his medications from his pack were taken on Tuesday or Tuesday. This brought into the hospital by ambulance. He is currently intubated and sedated on the mechanical ventilator. Chest x-ray reveals mild linear infiltrate within the mid left lung may be atelectasis or early pneumonia. EKG reveals normal sinus rhythm heart rate of 88 EKG reads as possible right ventricular hypertrophy with inferior MO probably old and an anterior lateral MO of indeterminate age. Brain CT and cervical spine CT revealed no acute changes no evidence for any fracture or stroke. Initial blood work reveals a white blood cell count of 17.3, sodium level of 136 potassium of 5.7, BUN of 137, creatinine of 8.82, blood glucose of 578, lactic acid of 2.6, Phos level 10.6, magnesium of 2.7, AST of 150 ALT of 71, creat kinase of 7555, troponin level is 0.043, proBNP of 4510. Urinalysis is completed with brown turbid urine with greater than 182 RBCs greater than 182 WBCs with many bacteria. His urine drug toxicology is negative serum alcohol is less than 10 he is acetone positive. His viral panel and Legionella screenings are all negative. Was admitted to the hospital intensive care unit secondary to the diabetic ketoacidosis and rhabdomyolysis. There is concern for underlying infection or sepsis he is started empirically on IV azithromycin and IV ceftriaxone. Patient was fluid resuscitated with 2 L of normal saline given in the ER and an infusion of normal saline at 130 mL/h. He did have a repeat chest x-ray completed this morning which is concerning for congestive heart failure and was given a dose of IV Lasix. Multiple consults in place including nephrology and pulmonary packaging line attendant. Echocardiogram has been ordered and is currently pending at this time. 09/06/2024 Patient is seen in follow-up in the ICU continues on mechanical ventilation with an FiO2 of 40% and PEEP is 5 maintaining good oxygen saturations. Patient's kidney functions worsened showing a creatinine of 7.61 with a BUN of 138 and vascular surgery was consulted and patient is being initiated on hemodialysis. Creatinine kinase is trending down and currently 6149, maintained on fluids. Insulin drip has been placed on hold and will initiate sliding scale with Accu- Cheks per protocol. Patient continues on pressor support along with sedation. Patient continues on IV antibiotics with infectious disease following as well. 09/07/2024 Patient evaluated in follow up in the ICU. Remains on the mechanical ventilator with FiO2 of 40% PEEP of 5. Propofol on hold he is responding to stimuli at this time. Patient received temporary dialysis catheter and has undergone hemodialysis yesterday and again today. Labs today show significant improvement in his renal function with BUN of 88 and creatinine of 4.68. Blood culture coming back with serratia marcescens and enterobacter cloacae complex. Urine culture also showing enterobacter cloacae. ID following and patient remains on IV antibiotics. Chest xray reveals possible worsening CHF. Chest xray reveals persistent mild/moderate central vascular congestion bilaterally consistent with fluid overload state. 09/08/2024 Patient is eval today in follow-up in the intensive care unit patient remains in the mechanical ventilator with an FiO2 of 40%, PEEP of 5. Patient is currently sedated with propofol. Patient has been started on hemodialysis and had third session of dialysis today was cut short as patient was unable to obtain ultrafiltration goal secondary to decreased blood pressures. Additionally there was an issue with the hemodialysis catheter and has received dose of alteplase x 2. Patient was started on Levophed 36 mL/h currently. Received an 80 mg dose of IV lasix last night. Blood pressure today in the low 100s systolic. REVIEW OF SYSTEMS: Unable to complete review of systems at this time patient is currently intubated and sedated. PHYSICAL EXAMINATION: GENERAL: The patient is sedated and on the mechanical ventilator, FiO2 is 40% with a PEEP of 5. Not in any acute distress. Well developed, well nourished. Ill-appearing, obese, elderly appearing HEENT: Pupils are round and equally reacting to light. EOMI. No scleral icterus. No conjunctival pallor. Normocephalic, atraumatic. No pharyngeal erythema. No thyromegaly. CARDIOVASCULAR: S1 and S2 muffled, tachy PULMONARY: Diminished breath sounds bilaterally otherwise chest is clear to auscultation, no wheezing or crackles. ABDOMEN: Soft, nontender, nondistended, normoactive bowel sounds. No palpable organomegaly. Bruise on the left upper abdomen. MUSCULOSKELETAL: No joint swelling or deformity. EXTREMITIES: No cyanosis, clubbing, or pedal edema. NEUROLOGICAL: Unable to completely assess as patient is on mechanical ventilation and sedated SKIN: No rashes. Pale Assessment and plan Altered mental status secondary to acute metabolic encephalopathy Sepsis with fever and lactic acidosis Acute UTI with sepsis and septic shock; requiring pressor support present on admission Bacteremia with enterobacter and serratia. Acute hypoxemic respiratory failure requiring mechanical intubation, FiO2 is 40% with a PEEP of 5 Diabetic ketoacidosis, improving and patient being transitioned off insulin drip will continue sliding scale along with long-acting if needed Anion gap metabolic acidosis Acute kidney injury acute tubular necrosis secondary to sepsis, worsening kidney functions now requiring hemodialysis, dialysis catheter being placed on 09/06/2024 Acute rhabdomyolysis secondary to prolonged downtime with CK of 7555 on admission Acute on chronic systolic heart failure Chronic Kidney disease Troponin elevation likely type II MO, although need to rule out NSTEMI Transaminitis Leukocytosis Diabetes mellitus type 2 uncontrolled with DKA Hyperlipidemia Hypertension maintained on lisinopril which is currently being held secondary to the renal dysfunction, currently hypotensive, requiring pressor support GI prophylaxis DVT prophylaxis Full Code Plan: Nephrology consultation and has consulted vascular surgery for hemodialysis catheter placement for emergent dialysis Patient continues with hemodialysis per nephrology. Hold nephrotoxic home medications including metformin, lisinopril Hold Farxiga due to the renal dysfunction Echocardiogram was done showing a reduced EF of 30 to 35% with no pericardial effusion with aortic valve sclerosis Cardiology consultation in place. Continue IV cefepime Repeat blood cultures have been ordered and pending at this time. Urine culture showing enterobacter cloacae. Repeat blood work in the AM The impression and plan of care has been dictated by Enedia James, Nurse Practitioner as directed. Dr. Iwona MD I have performed a history and physical examination and medical decision making of this patient, discussed the same with the dictator, and agree with the dictators assessment and plan as written, documented as a scribe. Based on total visit time, I have performed more than 50% of this visit. Objective - Vital Signs Vital signs: Vital Signs Temp 98.4 F 09/08/24 12:00 Pulse 94 09/08/24 12:16 Resp 36 H 09/08/24 12:00 BP 144/58 09/08/24 10:30 Pulse Ox 94 L 09/08/24 12:00 FiO2 40 09/08/24 12:00 Intake & Output 09/07/24 09/08/24 09/08/24 18:59 06:59 18:59 Intake Total 1843.910 534.884 0993.000 Output Total 8578 741 8794 Balance 238.910 574.723 173.000 Weight 82.3 kg Intake: IV 373 156 78 A Line 33 36 18 Cefepime 1 gm In Sodium 100 Chloride 0.9% 50 ml @ 12. 5 mls/hr IVPB DAILY [facility] Rx#:[id number] LR 240 120 60 Intake, IV Titration 598.910 601.723 100.000 Amount Norepinephrine 4 mg In 365.110 187.548 Sodium Chloride 0.9% 250 ml @ 0.03 MCG/KG/MIN 8. 573 mls/hr IV .Q24H [facility] Rx#:[id number] Norepinephrine 8 mg In 301.500 Sodium Chloride 0.9% 250 ml @ 0.03 MCG/KG/MIN 4. 737 mls/hr IV .Q24H [facility] Rx#:[id number] propofoL 1,000 mg In 233.800 112.675 100.000 Empty Bag 1 bag @ 15 MCG/ KG/MIN 6.75 mls/hr IV . [id number] [facility] Rx#:[id number] Tube Feeding 372 37 Hemodialysis 500 1400 Output: Urine 105 120 5 Oral Regurgitation 100 Hemodialysis 1000 800 Hemodialysis Net Amount 500 600 Other: Voiding Method Indwelling Catheter Indwelling Catheter Indwelling Catheter # Bowel Movements 1 ABP, PAP, CO, CI - Last Documented Arterial Blood Pressure 115/48 - Labs CBC & Chem 7: 09/08/24 05:00 09/08/24 05:00 Labs: Abnormal Lab Results - Last 24 Hours (Table) 09/07/24 09/08/24 09/08/24 Range/Units 17:38 00:14 05:00 RBC (4.30-5.90) m/uL Hgb (13.0-17.5) gm/dL Hct (39.0-53.0) % Plt Count (150-450) k/uL ABG pCO2 32 L (35-45) mmHg ABG pO2 60 L (83-108) mmHg ABG O2 Saturation 92.3 L (94-97) % Hemoglobin 9.8 L (13.0-17.5) gm/dL Sodium (137-145) mmol/L Carbon Dioxide (22-30) mmol/L BUN (9-20) mg/dL Creatinine (0.66-1.25) mg/dL Glucose (74-99) mg/dL POC Glucose (mg/dL) 208 H 174 H (70-110) mg/dL Calcium (8.4-10.2) mg/dL Total Bilirubin (0.2-1.3) mg/dL AST (17-59) U/L ALT (4-49) U/L Alkaline Phosphatase (38-126) U/L Total Protein (6.3-8.2) g/dL Albumin (3.5-5.0) g/dL 09/08/24 09/08/24 09/08/24 Range/Units 05:00 05:00 05:52 RBC 3.11 L (4.30-5.90) m/uL Hgb 9.4 L (13.0-17.5) gm/dL Hct 28.1 L (39.0-53.0) % Plt Count 87 L (150-450) k/uL ABG pCO2 (35-45) mmHg ABG pO2 (83-108) mmHg ABG O2 Saturation (94-97) % Hemoglobin (13.0-17.5) gm/dL Sodium 133 L (137-145) mmol/L Carbon Dioxide 20 L (22-30) mmol/L BUN 63 H (9-20) mg/dL Creatinine 3.91 H (0.66-1.25) mg/dL Glucose 274 H (74-99) mg/dL POC Glucose (mg/dL) 295 H (70-110) mg/dL Calcium 6.7 L (8.4-10.2) mg/dL Total Bilirubin 4.9 H (0.2-1.3) mg/dL AST 96 H (17-59) U/L ALT 52 H (4-49) U/L Alkaline Phosphatase 177 H (38-126) U/L Total Protein 4.3 L (6.3-8.2) g/dL Albumin 1.8 L (3.5-5.0) g/dL 09/08/24 09/08/24 Range/Units 09:57 11:52 RBC (4.30-5.90) m/uL Hgb (13.0-17.5) gm/dL Hct (39.0-53.0) % Plt Count (150-450) k/uL ABG pCO2 (35-45) mmHg ABG pO2 (83-108) mmHg ABG O2 Saturation (94-97) % Hemoglobin (13.0-17.5) gm/dL Sodium (137-145) mmol/L Carbon Dioxide (22-30) mmol/L BUN (9-20) mg/dL Creatinine (0.66-1.25) mg/dL Glucose (74-99) mg/dL POC Glucose (mg/dL) 175 H 214 H (70-110) mg/dL Calcium (8.4-10.2) mg/dL Total Bilirubin (0.2-1.3) mg/dL AST (17-59) U/L ALT (4-49) U/L Alkaline Phosphatase (38-126) U/L Total Protein (6.3-8.2) g/dL Albumin (3.5-5.0) g/dL Microbiology - Last 24 Hours (Table) 09/04/24 22:22 Urine Culture - Final Urine,Voided Enterobacter cloacae 09/05/24 14:30 Blood Culture - Preliminary Blood 09/05/24 12:38 Gram Stain - Final Sputum Sputum Culture - Final Assessment and Plan Time with Patient: Less than 30
[2024-09-08 18:17] LABS: Glucose,Whole Blood 200 mg/dL (70-110)
[2024-09-08] MEDS: ACETAMINOPHEN IV (For NPO) 1,000 MG in EMPTY BAG 1 BAG IVPB STA (19:11)
[2024-09-08] MEDS: PRAVASTATIN SODIUM 20 MG TAB PO SCH (19:39)
[2024-09-08 19:58] LABS: Glucose,Whole Blood 249 mg/dL (70-110)
[2024-09-08 23:01] LABS: Glucose,Whole Blood 300 mg/dL (70-110)
[2024-09-09 05:13] LABS: ABG HCO3 23 mmol/L (21-25); ABG PCO2 33 mmHg (35-45); ABG PH 7.45 (7.35-7.45); ABG PO2 86 mmHg (83-108); ABG TCO2 24 mmol/L (19-24); Allen Test Performed? Yes
--- NOTE | 2024-09-09 05:14 | XR ---
EXAMINATION TYPE: XR chest 1V portable DATE OF EXAM: 09/09/2024 CLINICAL HISTORY: Difficulty breathing progress study. TECHNIQUE: Single AP portable frontal view of the chest is obtained. COMPARISON: Chest x-ray from one day earlier FINDINGS: Stable endotracheal and orogastric tubes. Stable left-sided central venous catheter. Cardiac silhouette size stable and upper limits of normal. Persistent mild to moderate central vascul ar congestion bilaterally. Osseous structures are intact. IMPRESSION: Persistent mild/moderate central vascular congestion bilaterally consistent with fluid ov erload state. No significant change from one day earlier. [facility], , 09/09/2024 5:12 AM
[2024-09-09 05:30] LABS: HCT 28.5 % (39.0-53.0); HGB 9.6 gm/dL (13.0-17.5); MCH 30.7 pg (25.0-35.0); MCHC 33.7 g/dL (31.0-37.0); MCV 91.1 fL (80.0-100.0); Mean Platelet Volume 10.3; Platelet Count 119 k/uL (150-450); RBC 3.13 m/uL (4.30-5.90); RDW 14.9 % (11.5-15.5); WBC 13.5 k/uL (3.8-10.6)
[2024-09-09 05:50] LABS: ALT 48 U/L (4-49); AST 78 U/L (17-59); African American GFR (CKD) 21 (>60 ml/min/1.73 sqM); Albumin 1.8 g/dL (3.5-5.0); Alkaline Phosphatase 238 U/L (38-126); Anion Gap 7 mmol/L; Blood Urea Nitrogen 59 mg/dL (9-20); Calcium 6.8 mg/dL (8.4-10.2); Carbon Dioxide 21 mmol/L (22-30); Chloride 105 mmol/L (98-107); Glucose 245 mg/dL (74-99); Non-African American GFR(CKD) 18 (>60 ml/min/1.73 sqM); Potassium 3.9 mmol/L (3.5-5.1); Sodium 133 mmol/L (137-145); Total Bilirubin 6.8 mg/dL (0.2-1.3); Total Protein 4.4 g/dL (6.3-8.2)
[2024-09-09 06:06] LABS: Glucose,Whole Blood 224 mg/dL (70-110)
[2024-09-09] MEDS ORDERED: INSULIN DETEMIR (LEVEMIR) 100 UNIT/ML SYR SQ SCH (07:00)
[2024-09-09] MEDS: VASOPRESSIN 60 UNIT in SODIUM CHLORIDE 0.9% 150 ML IV SCH (09:38)
[2024-09-09 11:18] LABS: Glucose,Whole Blood 243 mg/dL (70-110)
--- NOTE | 2024-09-09 11:26 | P.PN ---
Subjective Progress Note Date: 09/09/24 histpry of present illness: Patient is a 64-year-old male with past medical history significant for diabetes mellitus, chronic kidney disease, hyperlipidemia, hypertension, among other things. Patient is currently in the intensive care unit, he is a poor historian. Unable to provide reliable h istory. The ER provider did not contact me. Per the ER documentation, patient was found on the ground for an unknown known amount of time, last seen well 2 weeks prior by his sister. He was found to be in acute rhabdomyolysis with acute renal failure. He was also found with elevated blood sugars. CT of the brain and C-spine without contrast showing no acute intracranial process and no acute osseous abnormalities of the C-spine. Initial labs include a CBC: WBC count 17.3, hemoglobin 14.6, hematocrit 45.1, platelets 226. CMP: Sodium 136, potassium 5.7, chloride 95, serum bicarb 14, BUN 137, creatinine 8.82, glucose 578. Lactic 1.5. Magnesium 2.7. LFTs mildly elevated. Troponin 0.043. NT proBNP 4510. EKG: normal sinus rhythm, rate 88 bpm, incomplete RBB pattern, without obvious acute ischemic changes. Urine drug screen unremarkable. Serum ETOH < 10. Currently evaluating this patient in the intensive care unit. CPK was 7555 on arrival. Did receive 1.5 L normal saline bolus in in ED and started on normal saline at 130 ml/hr. Subsequently started on sodium bicarbonate infusion 3 A in D5W at 100 mL/h. urine output is in the order of 30 to 50 cc/h. Nephrology is managing. Repeat potassium is down to 4.7. On arrival blood glucose 578, serum bicarb 12, anion gap 27, acetone positive. Patient has also been started on insulin infusion Per protocol. He did develop some respiratory distress, breathing in the high 40s. I did ask for the pateint to be placed on BiPAP with settings 10/5 and FiO2 to be titrated appropriately. Chest x-ray showing cardiomegaly. There is a left midlung linear infiltrates concerning for atelectasis or early pneumonia. Patient does have bruising to his left lateral chest. It is painful to palpation without crepitus or subcutaneous emphysema. Patient was empirically started on antibiotics in the ED.Current vitals: 97.6 F, blood pressure 115/85 mmHg, heart rate 78 bpm, tachypneic breathing in the high 40s, SpO2 is 100% on BiPAP with settings 10/5 FiO2 100%. Prognosis is guarded. 09/06/24 - Patient seen at bedside this morning, remaining in the ICU, day 2 of hospitalization, admitted on 09/05/24 and in the ICU since that time. He was placed to mechanical ventilation with intubation yesterday (09/05/24). He is on assist-control with a rate of 20, volume 450, FiO2 40%, PEEP of 5. ABG this morning showed pO2 72, pCO2 34, pH 7.46, indicating respiratory alkalosis with relative hypoxemia. Initial improvement in his WBCs down to 13.6 (from 14.8) this morning, his hemoglobin decreased to 11.2. His BUN is 138, creatinine 7. 61. Increase in AST, 3-4, and ALT, up to 113. Phosphorus 5.0, remaining 9, calcium 6.6, remaining well. Creatinine Kinase remains elevated, showing improvements, to 6149. His procalcitonin returned at > 100. His blood cultures were positive for Enterobacter cloacae without resistance noted, patient placed on cefepime - discontinued Rocephin and Zithromax. Patient remained Levophed at 0.09 mcg/kg/min (7.26 mcg/min) and propofol 40 mcg/kg/min. Blood pressure this morning 113/52. He will be started on vital HP 10 cc/h, with a goal being 37 cc/h. 09/07/24 - Patient seen at bedside today, remaining in the ICU, day 3 of hospitalization. Admitted on 09/05/24 and in the ICU since that time. He has been intubated on mechanical ventilation since 09/05/24. He remains on assist- control with a rate of 20, volume 450, FiO2 50% and a PEEP of 8. ABG this morning showed pO2 59, pCO2 34, pH 7.46 which indicated respiratory alkalosis with some metabolic alkalosis - this was done while the patient was on an FiO2 of 40%. At that time, patient's FiO2 was up to 50% and his PEEP was increased to 8, since that time he has been saturating well. This morning his WBCs are 9.9, hemoglobin 10.1, platelet count 76, sodium 134, BUN 88, creatinine 4.68, calcium 6.4 and ionized calcium 3.7. Most recent creatinine kinase 2760. Because of the patient's relative hypocalcemia he received 1 g of calcium gluconate. The CVP has been slightly elevated since its insertion, at the time of insertion read ~9, however when seen the patient it was reading 6 indicated the patient is likely euvolemic. Patient remains on Levophed 0.01 mcg/kg/min (8 mcg/min), and on propofol 40 mcg/kg/min and vital HP at 30 cc/h (goal of 37 cc/h). He remains on cefepime and lactated ringer 100 cc/h. His urine was positive, preliminarily, for gram-negative bacilli. Preliminary results of blood culture showed Enterobacter cloacae and Serratia marcescens. 09/08/24 - Patient seen at bedside today, remaining in the ICU, day 4 of hospitalization. Admitted on 09/05/24 and in the ICU since that time. He has been intubated and mechanically ventilated since 09/05/24. He remains on assist-control with a rate of 20, volume 450, FiO2 50% and PEEP of 8. ABG done this morning showed pO2 60, pCO2 32, pH 7.45 indicating a respiratory alkalosis with some evidence of metabolic alkalosis. Patient uneventful overnight. WBCs 10.2, hemoglobin 9.4, sodium 133, BUN 63, creatinine 3.91, calcium 6.7. Patient CVP has been elevated, most recently at 12, indicating some possible hypervolemia. Patient allan on propofol 30 mcg/kg/min, Levophed 0.23 mcg/kg/min (~19 mcg/min), and cefepime. Patient's hemodialysis yesterday, 500 cc was removed. Per the hemodialysis nurse, patient's blood pressure dropped at the start of treatment, leading to pressors being increased at that time. Urine culture now final, positive for Enterobacter cloacae. Blood culture remains preliminary at this time for Enterobacter cloacae and Serratia marcescens. The patient is seen today September 09, 2024 in follow-up in the intensive care unit. He remains intubated on the mechanical ventilator and assist-control mode at a rate of 20, tidal volume 450, FiO2 50% and a PEEP of 8. Morning blood gases revealed a PaO2 of 86, pCO2 33 and a pH of 7.45. He is currently on norepinephrine at 27 mcg/min. Vasopressin at 0.03 units/min. Propofol at 30 mcg/kg/min. Lactated Ringer's at 10 mL/h. Receiving vital HP at 37 mL/h which is goal. He remains on cefepime for Enterobacter Cloacae in the urine. Enterobacter Cloacae and Serratia marcescens in the blood. Have a Tmax last night of 103.4. Currently 99.4. White count 13.5. Hemoglobin 9.6. Platelets 119. Sodium 133. Potassium 3.9. Bicarb 21. BUN 59. Creatinine 3.35. Glucose 245. He is continued on DuoNeb and elations. Heparin for DVT prophylaxis. Remains on Levemir and Lovenox sliding scale. He is currently in a +1.8 L balance. Chest x-ray shows persistent mild to moderate central vascular congestion bilaterally. He has been receiving hemodialysis. Objective - Vital Signs Vital signs: Vital Signs Temp 99.4 F 09/09/24 08:00 Pulse 76 09/09/24 10:00 Resp 30 H 09/09/24 10:00 BP 144/58 09/08/24 10:30 Pulse Ox 98 09/09/24 10:00 FiO2 50 09/09/24 08:14 Intake & Output 09/08/24 09/09/24 09/09/24 18:59 06:59 18:59 Intake Total 2805.153 4621.632 501.841 Output Total 1455 90 15 Balance 124.708 4299.632 486.841 Weight 83.2 kg Intake: IV 156 169 79 A Line 36 39 9 Cefepime 1 gm In Sodium 50 Chloride 0.9% 50 ml @ 12. 5 mls/hr IVPB DAILY [facility] Rx#:[id number] LR 120 130 20 Intake, IV Titration 352.209 804.632 291.841 Amount Norepinephrine 8 mg In 176.159 628.457 240.316 Sodium Chloride 0.9% 250 ml @ 0.03 MCG/KG/MIN 4. 737 mls/hr IV .Q24H [facility] Rx#:[id number] propofoL 1,000 mg In 176.050 176.175 51.525 Empty Bag 1 bag @ 15 MCG/ KG/MIN 6.75 mls/hr IV . [id number] [facility] Rx#:[id number] Tube Feeding 444 111 Hemodialysis 1400 Other 90 20 Output: Urine 55 90 15 Hemodialysis 800 Hemodialysis Net Amount 600 Other: Voiding Method Indwelling Catheter Indwelling Catheter Indwelling Catheter # Bowel Movements 0 ABP, PAP, CO, CI - Last Documented Arterial Blood Pressure 147/55 - Exam GENERAL EXAM: Intubated, sedated 64-year-old male patient on the mechanical ventilator, in no apparent distress. HEAD: Normocephalic. EYES: Normal reaction of pupils, equal size. NOSE: Clear with pink turbinates. THROAT: Oral endotracheal and gastric tube secured in place. No erythema or exudates. NECK: No masses, no JVD. CHEST: No chest wall deformity. LUNGS: Equal air entry with coarse scattered rhonchi. CVS: Distant heart tones. S1 and S2 normal with no audible murmur, regular rhythm. ABDOMEN: No hepatosplenomegaly, normal bowel sounds, no guarding or rigidity. SPINE: No scoliosis or deformity SKIN: No rashes CENTRAL NERVOUS SYSTEM: No focal deficits, tone is normal in all 4 extremities. EXTREMITIES: There is 1+ peripheral edema. No clubbing, no cyanosis. Peripheral pulses are intact. - Labs CBC & Chem 7: 09/09/24 05:15 09/09/24 05:15 Labs: Abnormal Lab Results - Last 24 Hours (Table) 09/08/24 09/08/24 09/08/24 Range/Units 11:52 18:16 19:56 WBC (3.8-10.6) k/uL RBC (4.30-5.90) m/uL Hgb (13.0-17.5) gm/dL Hct (39.0-53.0) % Plt Count (150-450) k/uL ABG pCO2 (35-45) mmHg ABG O2 Saturation (94-97) % Hemoglobin (13.0-17.5) gm/dL Sodium (137-145) mmol/L Carbon Dioxide (22-30) mmol/L BUN (9-20) mg/dL Creatinine (0.66-1.25) mg/dL Glucose (74-99) mg/dL POC Glucose (mg/dL) 214 H 200 H 249 H (70-110) mg/dL Calcium (8.4-10.2) mg/dL Total Bilirubin (0.2-1.3) mg/dL AST (17-59) U/L Alkaline Phosphatase (38-126) U/L Total Protein (6.3-8.2) g/dL Albumin (3.5-5.0) g/dL 09/08/24 09/09/24 09/09/24 Range/Units 22:59 05:09 05:15 WBC 13.5 H (3.8-10.6) k/uL RBC 3.13 L (4.30-5.90) m/uL Hgb 9.6 L (13.0-17.5) gm/dL Hct 28.5 L (39.0-53.0) % Plt Count 119 L (150-450) k/uL ABG pCO2 33 L (35-45) mmHg ABG O2 Saturation 98.0 H (94-97) % Hemoglobin 9.9 L (13.0-17.5) gm/dL Sodium (137-145) mmol/L Carbon Dioxide (22-30) mmol/L BUN (9-20) mg/dL Creatinine (0.66-1.25) mg/dL Glucose (74-99) mg/dL POC Glucose (mg/dL) 300 H (70-110) mg/dL Calcium (8.4-10.2) mg/dL Total Bilirubin (0.2-1.3) mg/dL AST (17-59) U/L Alkaline Phosphatase (38-126) U/L Total Protein (6.3-8.2) g/dL Albumin (3.5-5.0) g/dL 09/09/24 09/09/24 Range/Units 05:15 06:04 WBC (3.8-10.6) k/uL RBC (4.30-5.90) m/uL Hgb (13.0-17.5) gm/dL Hct (39.0-53.0) % Plt Count (150-450) k/uL ABG pCO2 (35-45) mmHg ABG O2 Saturation (94-97) % Hemoglobin (13.0-17.5) gm/dL Sodium 133 L (137-145) mmol/L Carbon Dioxide 21 L (22-30) mmol/L BUN 59 H (9-20) mg/dL Creatinine 3.35 H (0.66-1.25) mg/dL Glucose 245 H (74-99) mg/dL POC Glucose (mg/dL) 224 H (70-110) mg/dL Calcium 6.8 L (8.4-10.2) mg/dL Total Bilirubin 6.8 H (0.2-1.3) mg/dL AST 78 H (17-59) U/L Alkaline Phosphatase 238 H (38-126) U/L Total Protein 4.4 L (6.3-8.2) g/dL Albumin 1.8 L (3.5-5.0) g/dL Microbiology - Last 24 Hours (Table) 09/05/24 14:30 Blood Culture - Preliminary Blood Assessment and Plan Assessment: Acute hypoxic respiratory failure, requiring mechanical ventilation and intubation on 09/05/24 Acute rhabdomyolysis, resolved Acute kidney injury; Acute tubular necrosis Elevated troponins, in setting of acute renal failure Sepsis, verified Enterobacter cloacae infection Febrile illness secondary to above Leukocytosis secondary to above Hypertension Mechanical fall, is on home 2 weeks prior Hyperkalemia, resolved Anion gap metabolic acidosis, resolved Hyperphosphatemia, improving Hypocalcemia likely secondary to decreased albumin Hx of HTN Hx of HLD Hx of T2DM Chronic kidney disease stage IIIb Hx of frequent UTIs Plan: The patient was seen and evaluated Chest x-ray, ABGs, labs and medications reviewed Microbiology reviewed Continue cefepime Titrate down the pressors as tolerated Continue bronchodilators Heparin for DVT prophylaxis Give Lasix 40 mg IVP x 1 Continue hemodialysis per nephrology We will continue to follow and make further recommendations based on his clinical status I have personally seen and examined the patient, performed the documentation and the assessment and plan as written. Number of minutes spent on the visit: 20. Dictation was produced using [employer] dictation software. Please excuse any grammatical, word or spelling errors.
--- NOTE | 2024-09-09 13:42 | P.PN ---
Subjective patient is seen for follow-up for acute kidney injury. Patient remains on the vent. FiO2 at 40% Urine output at 0- 5 ml/hr. Started on dialysis on 09/06/2024 dialysis catheter had very poor flows of around 200 yesterday and tPA was placed to dwell overnight. Objective - Vital Signs Vital signs: Vital Signs Temp 100.2 F H 09/09/24 12:00 Pulse 80 09/09/24 12:14 Resp 32 H 09/09/24 12:00 BP 144/58 09/08/24 10:30 Pulse Ox 99 09/09/24 12:00 FiO2 50 09/09/24 12:04 Intake & Output 09/08/24 09/09/24 09/09/24 18:59 06:59 18:59 Intake Total 8206.789 2935.632 612.368 Output Total 1455 90 25 Balance 333.396 1759.632 587.368 Weight 83.2 kg Intake: IV 156 169 85 A Line 36 39 15 Cefepime 1 gm In Sodium 50 Chloride 0.9% 50 ml @ 12. 5 mls/hr IVPB DAILY [facility] Rx#:[id number] LR 120 130 20 Intake, IV Titration 352.209 804.632 322.368 Amount Norepinephrine 8 mg In 176.159 628.457 270.843 Sodium Chloride 0.9% 250 ml @ 0.03 MCG/KG/MIN 4. 737 mls/hr IV .Q24H [facility] Rx#:[id number] propofoL 1,000 mg In 176.050 176.175 51.525 Empty Bag 1 bag @ 15 MCG/ KG/MIN 6.75 mls/hr IV . [id number] [facility] Rx#:[id number] Tube Feeding 444 185 Hemodialysis 1400 Other 90 20 Output: Urine 55 90 25 Hemodialysis 800 Hemodialysis Net Amount 600 Other: Voiding Method Indwelling Catheter Indwelling Catheter Indwelling Catheter # Bowel Movements 0 ABP, PAP, CO, CI - Last Documented Arterial Blood Pressure 133/50 - Exam Patient is sedated and intubated. Examination of the heart S1 and S2 Examination of the lungs bilateral breath sounds are heard Abdomen is soft nontender Examination of lower extremities shows no significant edema - Labs CBC & Chem 7: 09/09/24 05:15 09/09/24 05:15 Labs: Abnormal Lab Results - Last 24 Hours (Table) 09/08/24 09/08/24 09/08/24 Range/Units 18:16 19:56 22:59 WBC (3.8-10.6) k/uL RBC (4.30-5.90) m/uL Hgb (13.0-17.5) gm/dL Hct (39.0-53.0) % Plt Count (150-450) k/uL ABG pCO2 (35-45) mmHg ABG O2 Saturation (94-97) % Hemoglobin (13.0-17.5) gm/dL Sodium (137-145) mmol/L Carbon Dioxide (22-30) mmol/L BUN (9-20) mg/dL Creatinine (0.66-1.25) mg/dL Glucose (74-99) mg/dL POC Glucose (mg/dL) 200 H 249 H 300 H (70-110) mg/dL Calcium (8.4-10.2) mg/dL Total Bilirubin (0.2-1.3) mg/dL AST (17-59) U/L Alkaline Phosphatase (38-126) U/L Total Protein (6.3-8.2) g/dL Albumin (3.5-5.0) g/dL 09/09/24 09/09/24 09/09/24 Range/Units 05:09 05:15 05:15 WBC 13.5 H (3.8-10.6) k/uL RBC 3.13 L (4.30-5.90) m/uL Hgb 9.6 L (13.0-17.5) gm/dL Hct 28.5 L (39.0-53.0) % Plt Count 119 L (150-450) k/uL ABG pCO2 33 L (35-45) mmHg ABG O2 Saturation 98.0 H (94-97) % Hemoglobin 9.9 L (13.0-17.5) gm/dL Sodium 133 L (137-145) mmol/L Carbon Dioxide 21 L (22-30) mmol/L BUN 59 H (9-20) mg/dL Creatinine 3.35 H (0.66-1.25) mg/dL Glucose 245 H (74-99) mg/dL POC Glucose (mg/dL) (70-110) mg/dL Calcium 6.8 L (8.4-10.2) mg/dL Total Bilirubin 6.8 H (0.2-1.3) mg/dL AST 78 H (17-59) U/L Alkaline Phosphatase 238 H (38-126) U/L Total Protein 4.4 L (6.3-8.2) g/dL Albumin 1.8 L (3.5-5.0) g/dL 09/09/24 09/09/24 Range/Units 06:04 11:17 WBC (3.8-10.6) k/uL RBC (4.30-5.90) m/uL Hgb (13.0-17.5) gm/dL Hct (39.0-53.0) % Plt Count (150-450) k/uL ABG pCO2 (35-45) mmHg ABG O2 Saturation (94-97) % Hemoglobin (13.0-17.5) gm/dL Sodium (137-145) mmol/L Carbon Dioxide (22-30) mmol/L BUN (9-20) mg/dL Creatinine (0.66-1.25) mg/dL Glucose (74-99) mg/dL POC Glucose (mg/dL) 224 H 243 H (70-110) mg/dL Calcium (8.4-10.2) mg/dL Total Bilirubin (0.2-1.3) mg/dL AST (17-59) U/L Alkaline Phosphatase (38-126) U/L Total Protein (6.3-8.2) g/dL Albumin (3.5-5.0) g/dL Microbiology - Last 24 Hours (Table) 09/05/24 14:30 Blood Culture - Preliminary Blood Assessment and Plan Assessment: 1. Acute kidney injury ATN from hypotension, underlying infection and rhabdomyolysis, initially nonoliguric currently oliguric secondary to worsening hypotension. Maintained on vasopressors and status post IV fluid boluses. UA is suggestive of UTI. Started hemodialysis on 09/06/2024 2. Anion gap metabolic acidosis secondary to diabetic ketoacidosis and acute kidney injury, status post bicarb drip 3. Rhabdomyolysis with CK trending down 4. Acute hypoxic respiratory failure 5. Hyperkalemia associated with acute kidney injury, metabolic acidosis and rhabdomyolysis 6. History of right renal mass with previous MRI in 2022 showing enlarging lesion in the right kidney. This was not seen clearly on ultrasound performed this admission. Patient will need further evaluation and follow-up down the road. Plan: continue off of IV fluids Repeat hemodialysis on 09/10/2024 Continue with antibiotics and pressor support Further evaluation of right renal mass down the road
--- NOTE | 2024-09-09 14:18 | P.PN ---
Subjective Progress Note Date: 09/09/24 Principal diagnosis: Reason for follow-up is sepsis and bacteremia Patient is a 64-year-old male with a past medical history significant for diabetes mellitus hyperlipidemia, chronic kidney disease patient has been brought to the hospital after the patient was found on the ground for unknown amount of time patient was noted to be septic requiring admission to the ICU on the ventilator subsequent did have a positive blood culture with Enterobacter. On today's evaluation that is 09/09/2024, Patient did spike a fever of 103.5 F last evening and did have a temperature 100.2 at noon patient is currently quite a more pressor support as reported by the nursing staff and is in a 50% FiO2 no other changes reported. Patient white count is up to 13.5 creatinine 3.3 5 repeat blood cultures currently pending sputum is negative Objective - Vital Signs Vital signs: Vital Signs Temp 100.2 F H 09/09/24 12:00 Pulse 80 09/09/24 12:14 Resp 32 H 09/09/24 12:00 BP 144/58 09/08/24 10:30 Pulse Ox 99 09/09/24 12:00 FiO2 50 09/09/24 12:04 Intake & Output 09/08/24 09/09/24 09/09/24 18:59 06:59 18:59 Intake Total 8410.854 9583.632 612.368 Output Total 1455 90 25 Balance 198.543 8239.632 587.368 Weight 83.2 kg Intake: IV 156 169 85 A Line 36 39 15 Cefepime 1 gm In Sodium 50 Chloride 0.9% 50 ml @ 12. 5 mls/hr IVPB DAILY [facility] Rx#:[id number] LR 120 130 20 Intake, IV Titration 352.209 804.632 322.368 Amount Norepinephrine 8 mg In 176.159 628.457 270.843 Sodium Chloride 0.9% 250 ml @ 0.03 MCG/KG/MIN 4. 737 mls/hr IV .Q24H [facility] Rx#:[id number] propofoL 1,000 mg In 176.050 176.175 51.525 Empty Bag 1 bag @ 15 MCG/ KG/MIN 6.75 mls/hr IV . [id number] [facility] Rx#:[id number] Tube Feeding 444 185 Hemodialysis 1400 Other 90 20 Output: Urine 55 90 25 Hemodialysis 800 Hemodialysis Net Amount 600 Other: Voiding Method Indwelling Catheter Indwelling Catheter Indwelling Catheter # Bowel Movements 0 ABP, PAP, CO, CI - Last Documented Arterial Blood Pressure 133/50 - Exam GENERAL DESCRIPTION: An elderly male intubated on the vent RESPIRATORY SYSTEM: Unlabored breathing , decreased breath sounds at bases HEART: S1 S2 regular rate and rhythm , ABDOMEN: Soft , no tenderness EXTREMITIES: No edema feet - Labs CBC & Chem 7: 09/09/24 05:15 09/09/24 05:15 Labs: Abnormal Lab Results - Last 24 Hours (Table) 09/08/24 09/08/24 09/08/24 Range/Units 18:16 19:56 22:59 WBC (3.8-10.6) k/uL RBC (4.30-5.90) m/uL Hgb (13.0-17.5) gm/dL Hct (39.0-53.0) % Plt Count (150-450) k/uL ABG pCO2 (35-45) mmHg ABG O2 Saturation (94-97) % Hemoglobin (13.0-17.5) gm/dL Sodium (137-145) mmol/L Carbon Dioxide (22-30) mmol/L BUN (9-20) mg/dL Creatinine (0.66-1.25) mg/dL Glucose (74-99) mg/dL POC Glucose (mg/dL) 200 H 249 H 300 H (70-110) mg/dL Calcium (8.4-10.2) mg/dL Total Bilirubin (0.2-1.3) mg/dL AST (17-59) U/L Alkaline Phosphatase (38-126) U/L Total Protein (6.3-8.2) g/dL Albumin (3.5-5.0) g/dL 09/09/24 09/09/24 09/09/24 Range/Units 05:09 05:15 05:15 WBC 13.5 H (3.8-10.6) k/uL RBC 3.13 L (4.30-5.90) m/uL Hgb 9.6 L (13.0-17.5) gm/dL Hct 28.5 L (39.0-53.0) % Plt Count 119 L (150-450) k/uL ABG pCO2 33 L (35-45) mmHg ABG O2 Saturation 98.0 H (94-97) % Hemoglobin 9.9 L (13.0-17.5) gm/dL Sodium 133 L (137-145) mmol/L Carbon Dioxide 21 L (22-30) mmol/L BUN 59 H (9-20) mg/dL Creatinine 3.35 H (0.66-1.25) mg/dL Glucose 245 H (74-99) mg/dL POC Glucose (mg/dL) (70-110) mg/dL Calcium 6.8 L (8.4-10.2) mg/dL Total Bilirubin 6.8 H (0.2-1.3) mg/dL AST 78 H (17-59) U/L Alkaline Phosphatase 238 H (38-126) U/L Total Protein 4.4 L (6.3-8.2) g/dL Albumin 1.8 L (3.5-5.0) g/dL 09/09/24 09/09/24 Range/Units 06:04 11:17 WBC (3.8-10.6) k/uL RBC (4.30-5.90) m/uL Hgb (13.0-17.5) gm/dL Hct (39.0-53.0) % Plt Count (150-450) k/uL ABG pCO2 (35-45) mmHg ABG O2 Saturation (94-97) % Hemoglobin (13.0-17.5) gm/dL Sodium (137-145) mmol/L Carbon Dioxide (22-30) mmol/L BUN (9-20) mg/dL Creatinine (0.66-1.25) mg/dL Glucose (74-99) mg/dL POC Glucose (mg/dL) 224 H 243 H (70-110) mg/dL Calcium (8.4-10.2) mg/dL Total Bilirubin (0.2-1.3) mg/dL AST (17-59) U/L Alkaline Phosphatase (38-126) U/L Total Protein (6.3-8.2) g/dL Albumin (3.5-5.0) g/dL Microbiology - Last 24 Hours (Table) 09/05/24 14:30 Blood Culture - Preliminary Blood Assessment and Plan (1) Sepsis Current Visit: Yes Status: Acute Code(s): A41.9 - SEPSIS, UNSPECIFIED ORGANISM SNOMED Code(s): 29941519 (2) Pneumonia Current Visit: Yes Status: Acute Code(s): J18.9 - PNEUMONIA, UNSPECIFIED ORGANISM SNOMED Code(s): 812278460 (3) UTI (urinary tract infection) Current Visit: No Status: Acute Code(s): N39.0 - URINARY TRACT INFECTION, SITE NOT SPECIFIED SNOMED Code(s): 00251910 Plan: 1patient with sepsis in this patient who did have a fever hyortension requiring pressor support maintaining criteria for SIRS source is likely UTI pneumonia not entirely excluded 2-blood culture came back positive with Enterobacter and Serratia, urine is growing Enterobacter 3-patient is covered with cefepime awaiting finalization of the blood cultures, CT abdominal pelvis ordered yesterday has been put on hold per yard spotter as per discussion with the patient nurse Dictation was produced using [employer] dictation software. please excuse any grammatical, word or spelling errors. Time with Patient: Less than 30
[2024-09-09 16:43] LABS: Glucose,Whole Blood 251 mg/dL (70-110)
--- NOTE | 2024-09-09 18:40 | P.PN ---
Subjective Progress Note Date: 09/09/24 This is a 64-year-old male with medical history significant for hyperlipidemia, diabetes mellitus, heart failure, chronic kidney disease, hypertension. Medical history is obtained from the patient's sister who is at the bedside. Patient is currently on the mechanical ventilator. Patient presented to the hospital yesterday afternoon after being found on the ground responsive by family. Sister states that she goes over to the patient's house every Tuesday to set up his medications for the week. Patient had another family member in the room states that they had spoken over the phone on . When patient's sister arrived to the house on Tuesday after not hearing from him for a few days she f ound him on the ground unresponsive and states that none of his medications from his pack were taken on Tuesday or Tuesday. This brought into the hospital by ambulance. He is currently intubated and sedated on the mechanical ventilator. Chest x-ray reveals mild linear infiltrate within the mid left lung may be atelectasis or early pneumonia. EKG reveals normal sinus rhythm heart rate of 88 EKG reads as possible right ventricular hypertrophy with inferior NC probably old and an anterior lateral NC of indeterminate age. Brain CT and cervical spine CT revealed no acute changes no evidence for any fracture or stroke. Initial blood work reveals a white blood cell count of 17.3, sodium level of 136 potassium of 5.7, BUN of 137, creatinine of 8.82, blood glucose of 578, lactic acid of 2.6, Phos level 10.6, magnesium of 2.7, AST of 150 ALT of 71, creat kinase of 7555, troponin level is 0.043, proBNP of 4510. Urinalysis is completed with brown turbid urine with greater than 182 RBCs greater than 182 WBCs with many bacteria. His urine drug toxicology is negative serum alcohol is less than 10 he is acetone positive. His viral panel and Legionella screenings are all negative. Was admitted to the hospital intensive care unit secondary to the diabetic ketoacidosis and rhabdomyolysis. There is concern for underlying infection or sepsis he is started empirically on IV azithromycin and IV ceftriaxone. Patient was fluid resuscitated with 2 L of normal saline given in the ER and an infusion of normal saline at 130 mL/h. He did have a repeat chest x-ray completed this morning which is concerning for congestive heart failure and was given a dose of IV Lasix. 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 Echocardiogram has been ordered and is currently pending at this time. 09/06/2024 Patient is seen in follow-up in the ICU continues on mechanical ventilation with an FiO2 of 40% and PEEP is 5 maintaining good oxygen saturations. Patient's kidney functions worsened showing a creatinine of 7.61 with a BUN of 138 and vascular surgery was consulted and patient is being initiated on hemodialysis. Creatinine kinase is trending down and currently 6149, maintained on fluids. Insulin drip has been placed on hold and will initiate sliding scale with Accu- Cheks per protocol. Patient continues on pressor support along with sedation. Patient continues on IV antibiotics with infectious disease following as well. 09/07/2024 Patient evaluated in follow up in the ICU. Remains on the mechanical ventilator with FiO2 of 40% PEEP of 5. Propofol on hold he is responding to stimuli at this time. Patient received temporary dialysis catheter and has undergone hemodialysis yesterday and again today. Labs today show significant improvement in his renal function with BUN of 88 and creatinine of 4.68. Blood culture coming back with serratia marcescens and enterobacter cloacae complex. Urine culture also showing enterobacter cloacae. ID following and patient remains on IV antibiotics. Chest xray reveals possible worsening CHF. Chest xray reveals persistent mild/moderate central vascular congestion bilaterally consistent with fluid overload state. 09/08/2024 Patient is eval today in follow-up in the intensive care unit patient remains in the mechanical ventilator with an FiO2 of 40%, PEEP of 5. Patient is currently sedated with propofol. Patient has been started on hemodialysis and had third session of dialysis today was cut short as patient was unable to obtain ultrafiltration goal secondary to decreased blood pressures. Additionally there was an issue with the hemodialysis catheter and has received dose of alteplase x 2. Patient was started on Levophed 36 mL/h currently. Received an 80 mg dose of IV lasix last night. Blood pressure today in the low 100s systolic. 09/09/2024 Patient evaluated today in follow-up remains in intensive care unit on mechanical ventilator with an FiO2 40% a PEEP of 5. Patient is currently sedated with propofol. Patient is scheduled to undergo hemodialysis tomorrow. Chest x-ray today reveals persistent mild/moderate central venous congestion bilaterally consistent with a fluid overload state. No significant change from 1 day earlier. Patient remains on oral amiodarone. Continues on Levophed. Remains on IV cefepime. Blood glucose in the 200s. Additional blood work reveals a white blood cell count 13.5, hemoglobin 9.6, platelet count of 119, sodium of 133, potassium 3.9, BUN of 59, creatinine of 3.35. His LFTs are improving with a bilirubin of 6.8, AST of 78, ALT of 48, alk phos of 238. REVIEW OF SYSTEMS: Unable to complete review of systems at this time patient is currently intubated and sedated. PHYSICAL EXAMINATION: GENERAL: The patient is sedated and on the mechanical ventilator, FiO2 is 40% with a PEEP of 5. Not in any acute distress. Well developed, well nourished. Ill-appearing, obese, elderly appearing HEENT: Pupils are round and equally reacting to light. EOMI. No scleral icterus. No conjunctival pallor. Normocephalic, atraumatic. No pharyngeal erythema. No thyromegaly. CARDIOVASCULAR: S1 and S2 muffled, tachy PULMONARY: Diminished breath sounds bilaterally otherwise chest is clear to auscultation, no wheezing or crackles. ABDOMEN: Soft, nontender, nondistended, normoactive bowel sounds. No palpable organomegaly. Bruise on the left upper abdomen. MUSCULOSKELETAL: No joint swelling or deformity. EXTREMITIES: No cyanosis, clubbing, or pedal edema. NEUROLOGICAL: Unable to completely assess as patient is on mechanical ventilation and sedated SKIN: No rashes. Pale Assessment and plan Altered mental status secondary to acute metabolic encephalopathy Sepsis with fever and lactic acidosis Acute UTI with sepsis and septic shock; requiring pressor support present on admission Bacteremia with enterobacter and serratia. Acute hypoxemic respiratory failure requiring mechanical intubation, FiO2 is 40% with a PEEP of 5 Diabetic ketoacidosis, improving and patient being transitioned off insulin drip will continue sliding scale along with long-acting if needed Anion gap metabolic acidosis Acute kidney injury acute tubular necrosis secondary to sepsis, worsening kidney functions now requiring hemodialysis, dialysis catheter being placed on 09/06/2024 Acute rhabdomyolysis secondary to prolonged downtime with CK of 7555 on admission Acute on chronic systolic heart failure Chronic Kidney disease Troponin elevation likely type II NC, although need to rule out NSTEMI Transaminitis Leukocytosis Diabetes mellitus type 2 uncontrolled with DKA Hyperlipidemia Hypertension maintained on lisinopril which is currently being held secondary to the renal dysfunction, currently hypotensive, requiring pressor support GI prophylaxis DVT prophylaxis Full Code Plan: Nephrology consultation and has consulted vascular surgery for hemodialysis catheter placement for emergent dialysis Patient continues with hemodialysis per nephrology. Next scheduled hemodialysis is tomorrow 09/10 Echocardiogram was done showing a reduced EF of 30 to 35% with no pericardial effusion with aortic valve sclerosis Cardiology consultation in place. Continue IV cefepime, ID following the patient has ordered an abdomen pelvis CT which is being held at this time Repeat blood cultures have been ordered and negative so far. I do carry that out here urine culture showing enterobacter cloacae. Repeat blood work in the AM The impression and plan of care has been dictated by Kristin Huynh, Nurse Practitioner as directed. Dr. Iwona MD I have performed a history and physical examination and medical decision making of this patient, discussed the same with the dictator, and agree with the dictators assessment and plan as written, documented as a scribe. Based on total visit time, I have performed more than 50% of this visit. Objective - Vital Signs Vital signs: Vital Signs Temp 100.9 F H 09/09/24 04:00 Pulse 76 09/09/24 08:22 Resp 31 H 09/09/24 07:00 BP 144/58 09/08/24 10:30 Pulse Ox 96 09/09/24 07:00 FiO2 50 09/09/24 08:14 Intake & Output 09/08/24 09/09/24 09/09/24 18:59 06:59 18:59 Intake Total 0930.721 9383.632 Output Total 1455 90 Balance 633.553 1837.632 Intake: IV 156 169 A Line 36 39 LR 120 130 Intake, IV Titration 352.209 804.632 Amount Norepinephrine 8 mg In 176.159 628.457 Sodium Chloride 0.9% 250 ml @ 0.03 MCG/KG/MIN 4. 737 mls/hr IV .Q24H [facility] Rx#:[id number] propofoL 1,000 mg In 176.050 176.175 Empty Bag 1 bag @ 15 MCG/ KG/MIN 6.75 mls/hr IV . [id number] [facility] Rx#:[id number] Tube Feeding 444 Hemodialysis 1400 Other 90 Output: Urine 55 90 Hemodialysis 800 Hemodialysis Net Amount 600 Other: Voiding Method Indwelling Catheter Indwelling Catheter ABP, PAP, CO, CI - Last Documented Arterial Blood Pressure 135/49 - Labs CBC & Chem 7: 09/09/24 05:15 09/09/24 05:15 Labs: Abnormal Lab Results - Last 24 Hours (Table) 09/08/24 09/08/24 09/08/24 Range/Units 09:57 11:52 18:16 WBC (3.8-10.6) k/uL RBC (4.30-5.90) m/uL Hgb (13.0-17.5) gm/dL Hct (39.0-53.0) % Plt Count (150-450) k/uL ABG pCO2 (35-45) mmHg ABG O2 Saturation (94-97) % Hemoglobin (13.0-17.5) gm/dL Sodium (137-145) mmol/L Carbon Dioxide (22-30) mmol/L BUN (9-20) mg/dL Creatinine (0.66-1.25) mg/dL Glucose (74-99) mg/dL POC Glucose (mg/dL) 175 H 214 H 200 H (70-110) mg/dL Calcium (8.4-10.2) mg/dL Total Bilirubin (0.2-1.3) mg/dL AST (17-59) U/L Alkaline Phosphatase (38-126) U/L Total Protein (6.3-8.2) g/dL Albumin (3.5-5.0) g/dL 09/08/24 09/08/24 09/09/24 Range/Units 19:56 22:59 05:09 WBC (3.8-10.6) k/uL RBC (4.30-5.90) m/uL Hgb (13.0-17.5) gm/dL Hct (39.0-53.0) % Plt Count (150-450) k/uL ABG pCO2 33 L (35-45) mmHg ABG O2 Saturation 98.0 H (94-97) % Hemoglobin 9.9 L (13.0-17.5) gm/dL Sodium (137-145) mmol/L Carbon Dioxide (22-30) mmol/L BUN (9-20) mg/dL Creatinine (0.66-1.25) mg/dL Glucose (74-99) mg/dL POC Glucose (mg/dL) 249 H 300 H (70-110) mg/dL Calcium (8.4-10.2) mg/dL Total Bilirubin (0.2-1.3) mg/dL AST (17-59) U/L Alkaline Phosphatase (38-126) U/L Total Protein (6.3-8.2) g/dL Albumin (3.5-5.0) g/dL 09/09/24 09/09/24 09/09/24 Range/Units 05:15 05:15 06:04 WBC 13.5 H (3.8-10.6) k/uL RBC 3.13 L (4.30-5.90) m/uL Hgb 9.6 L (13.0-17.5) gm/dL Hct 28.5 L (39.0-53.0) % Plt Count 119 L (150-450) k/uL ABG pCO2 (35-45) mmHg ABG O2 Saturation (94-97) % Hemoglobin (13.0-17.5) gm/dL Sodium 133 L (137-145) mmol/L Carbon Dioxide 21 L (22-30) mmol/L BUN 59 H (9-20) mg/dL Creatinine 3.35 H (0.66-1.25) mg/dL Glucose 245 H (74-99) mg/dL POC Glucose (mg/dL) 224 H (70-110) mg/dL Calcium 6.8 L (8.4-10.2) mg/dL Total Bilirubin 6.8 H (0.2-1.3) mg/dL AST 78 H (17-59) U/L Alkaline Phosphatase 238 H (38-126) U/L Total Protein 4.4 L (6.3-8.2) g/dL Albumin 1.8 L (3.5-5.0) g/dL Microbiology - Last 24 Hours (Table) 09/05/24 14:30 Blood Culture - Preliminary Blood Assessment and Plan Time with Patient: Less than 30
[2024-09-09 23:56] LABS: Glucose,Whole Blood 316 mg/dL (70-110)
[2024-09-10 05:02] LABS: Basophils % (A) 0 %; Eosinophils # (A) 0.2 k/uL (0-0.7); Eosinophils % (A) 2 %; HCT 29.1 % (39.0-53.0); HGB 9.7 gm/dL (13.0-17.5); Lymphocytes # (A) 0.5 k/uL (1.0-4.8); Lymphocytes % (A) 4 %; MCH 30.4 pg (25.0-35.0); MCHC 33.2 g/dL (31.0-37.0); MCV 91.5 fL (80.0-100.0); Mean Platelet Volume 10.6; Monocytes # (A) 0.4 k/uL (0-1.0); Monocytes % (A) 3 %; Neutrophils % (A) 88 %; Platelet Count 116 k/uL (150-450); RBC 3.18 m/uL (4.30-5.90); RDW 15.2 % (11.5-15.5); WBC 11.3 k/uL (3.8-10.6)
[2024-09-10 05:06] LABS: ALT 43 U/L (4-49); AST 47 U/L (17-59); African American GFR (CKD) 18 (>60 ml/min/1.73 sqM); Albumin 1.8 g/dL (3.5-5.0); Alkaline Phosphatase 218 U/L (38-126); Anion Gap 12 mmol/L; Blood Urea Nitrogen 81 mg/dL (9-20); Calcium 6.7 mg/dL (8.4-10.2); Carbon Dioxide 18 mmol/L (22-30); Chloride 101 mmol/L (98-107); Glucose 297 mg/dL (74-99); Non-African American GFR(CKD) 15 (>60 ml/min/1.73 sqM); Potassium 4.4 mmol/L (3.5-5.1); Sodium 131 mmol/L (137-145); Total Bilirubin 5.9 mg/dL (0.2-1.3); Total Protein 4.4 g/dL (6.3-8.2)
[2024-09-10 05:25] LABS: Glucose,Whole Blood 284 mg/dL (70-110)
[2024-09-10 05:38] LABS: ABG HCO3 20 mmol/L (21-25); ABG PCO2 34 mmHg (35-45); ABG PH 7.39 (7.35-7.45); ABG PO2 62 mmHg (83-108); ABG TCO2 22 mmol/L (19-24); Allen Test Performed? Yes
[2024-09-10] MEDS: HYDROmorphone 0.5 MG/0.5 ML SYRINGE IVP PRN (08:06)
--- NOTE | 2024-09-10 08:23 | XR ---
EXAMINATION TYPE: XR chest 1V portable DATE OF EXAM: 09/10/2024 5:05 AM COMPARISON: None. CLINICAL INDICATION: Male, 64 years old with history of respiratory failure, FINDINGS: Indwelling tubes and catheters are unchanged. Scattered infiltrates are unchanged. Stable appearance of the cardio-mediastinal structures at this time. IMPRESSION: 1. Stable portable chest. Clinical correlation and follow up until resolution is recommended. [facility], , 09/10/2024 8:21 AM
--- NOTE | 2024-09-10 08:37 | P.PN ---
Subjective Patient is seen in follow-up for acute kidney injury on chronic kidney disease. Started on hemodialysis September 06, 2024 via right femoral catheter. On Levophed and vasopressin. Oliguric. Intubated. Vital signs are stable. On vasopressor support. General: Resting in bed. HEENT: Intubated. LUNGS: Scattered rhonchi. HEART: Rate and Rhythm are regular. ABDOMEN: No distention. EXTREMITITES: Trace edema. Objective - Vital Signs Vital signs: Vital Signs Temp 98.6 F 09/10/24 08:00 Pulse 72 09/10/24 08:00 Resp 35 H 09/10/24 08:00 BP 144/58 09/08/24 10:30 Pulse Ox 97 09/10/24 08:00 FiO2 50 09/10/24 08:00 Intake & Output 09/09/24 09/10/24 09/10/24 18:59 06:59 18:59 Intake Total 1207.755 946.113 225.486 Output Total 60 80 5 Balance 1147.755 866.113 220.486 Weight 87.4 kg Intake: IV 163 133 10 A Line 33 3 Cefepime 1 gm In Sodium 50 Chloride 0.9% 50 ml @ 12. 5 mls/hr IVPB DAILY [facility] Rx#:[id number] LR 80 130 10 Intake, IV Titration 617.755 443.113 148.486 Amount Norepinephrine 8 mg In 495.580 238.183 65.371 Sodium Chloride 0.9% 250 ml @ 0.03 MCG/KG/MIN 4. 737 mls/hr IV .Q24H [facility] Rx#:[id number] Vasopressin 60 unit In 55.08 4.59 Sodium Chloride 0.9% 150 ml @ 0.03 UNITS/MIN 4.59 mls/hr IV .Q24H [facility] Rx#: [id number] propofoL 1,000 mg In 122.175 149.850 78.525 Empty Bag 1 bag @ 15 MCG/ KG/MIN 6.75 mls/hr IV . [id number] [facility] Rx#:[id number] Tube Feeding 407 370 37 Other 20 30 Output: Urine 60 80 5 Other: Voiding Method Indwelling Catheter Indwelling Catheter Indwelling Catheter # Bowel Movements 0 0 ABP, PAP, CO, CI - Last Documented Arterial Blood Pressure 128/48 - Labs CBC & Chem 7: 09/10/24 03:40 09/10/24 03:40 Labs: Abnormal Lab Results - Last 24 Hours (Table) 09/09/24 09/09/24 09/09/24 Range/Units 11:17 16:41 23:55 WBC (3.8-10.6) k/uL RBC (4.30-5.90) m/uL Hgb (13.0-17.5) gm/dL Hct (39.0-53.0) % Plt Count (150-450) k/uL Neutrophils # (1.3-7.7) k/uL Lymphocytes # (1.0-4.8) k/uL ABG pCO2 (35-45) mmHg ABG pO2 (83-108) mmHg ABG HCO3 (21-25) mmol/L ABG O2 Saturation (94-97) % Hemoglobin (13.0-17.5) gm/dL Sodium (137-145) mmol/L Carbon Dioxide (22-30) mmol/L BUN (9-20) mg/dL Creatinine (0.66-1.25) mg/dL Glucose (74-99) mg/dL POC Glucose (mg/dL) 243 H 251 H 316 H (70-110) mg/dL Calcium (8.4-10.2) mg/dL Total Bilirubin (0.2-1.3) mg/dL Alkaline Phosphatase (38-126) U/L Total Protein (6.3-8.2) g/dL Albumin (3.5-5.0) g/dL 09/10/24 09/10/24 09/10/24 Range/Units 03:40 03:40 05:24 WBC 11.3 H (3.8-10.6) k/uL RBC 3.18 L (4.30-5.90) m/uL Hgb 9.7 L (13.0-17.5) gm/dL Hct 29.1 L (39.0-53.0) % Plt Count 116 L (150-450) k/uL Neutrophils # 10.0 H (1.3-7.7) k/uL Lymphocytes # 0.5 L (1.0-4.8) k/uL ABG pCO2 (35-45) mmHg ABG pO2 (83-108) mmHg ABG HCO3 (21-25) mmol/L ABG O2 Saturation (94-97) % Hemoglobin (13.0-17.5) gm/dL Sodium 131 L (137-145) mmol/L Carbon Dioxide 18 L (22-30) mmol/L BUN 81 H (9-20) mg/dL Creatinine 3.87 H (0.66-1.25) mg/dL Glucose 297 H (74-99) mg/dL POC Glucose (mg/dL) 284 H (70-110) mg/dL Calcium 6.7 L (8.4-10.2) mg/dL Total Bilirubin 5.9 H (0.2-1.3) mg/dL Alkaline Phosphatase 218 H (38-126) U/L Total Protein 4.4 L (6.3-8.2) g/dL Albumin 1.8 L (3.5-5.0) g/dL 09/10/24 Range/Units 05:35 WBC (3.8-10.6) k/uL RBC (4.30-5.90) m/uL Hgb (13.0-17.5) gm/dL Hct (39.0-53.0) % Plt Count (150-450) k/uL Neutrophils # (1.3-7.7) k/uL Lymphocytes # (1.0-4.8) k/uL ABG pCO2 34 L (35-45) mmHg ABG pO2 62 L (83-108) mmHg ABG HCO3 20 L (21-25) mmol/L ABG O2 Saturation 92.0 L (94-97) % Hemoglobin 9.3 L (13.0-17.5) gm/dL Sodium (137-145) mmol/L Carbon Dioxide (22-30) mmol/L BUN (9-20) mg/dL Creatinine (0.66-1.25) mg/dL Glucose (74-99) mg/dL POC Glucose (mg/dL) (70-110) mg/dL Calcium (8.4-10.2) mg/dL Total Bilirubin (0.2-1.3) mg/dL Alkaline Phosphatase (38-126) U/L Total Protein (6.3-8.2) g/dL Albumin (3.5-5.0) g/dL Assessment and Plan Plan: Assessment: 1. Acute kidney injury secondary to ATN secondary to septic shock. Oliguric. Started on hemodialysis September 06, 2024 via right femoral catheter. 2. Chronic kidney disease stage IIIb with baseline creatinine 1.8-2 secondary to diabetic kidney disease. 3. Septic shock with blood cultures positive for Enterobacter and Serratia and urine culture positive for Enterobacter. On antibiotics. 4. Metabolic acidosis secondary to acute kidney injury. 5. Diabetes mellitus. 6. Rhabdomyolysis. CK level 2760 dated September 07, 2024. 7. Acute hypoxic respiratory failure. Intubated. 8. History of right renal mass not clearly seen on ultrasound this admission. Will need to see urology outpatient. Plan: Hemodialysis today. Maintain tube feeds. Wean FiO2 and vasopressors. Continue to monitor renal function and urine output. Repeat CK level.
--- NOTE | 2024-09-10 11:30 | CT ---
EXAMINATION TYPE: CT abdomen pelvis wo con CT DLP: 968.9 mGycm, Automated exposure control for dose reduction was used. DATE OF EXAM: 09/10/2024 10:42 AM COMPARISON: MR kidney 08/01/2023, CT abdomen 06/22/2022, CT abdomen and pelvis 05/01/2018 CLINICAL INDICATION:Male, 64 years old with history of Polymicrobial bacteremia abdominal source; Ralph ymicrobial bacteremia abdominal source TECHNIQUE: Standard CT of the abdomen and pelvis without IV or oral contrast. Lack of IV or oral co ntrast limits evaluation of solid and hollow organ viscera. Coronal and sagittal reformats were perfo rmed. FINDINGS: LOWER CHEST: Right basilar patchy consolidation with air bronchograms. Small right pleural effusion. Bilateral gynecomastia. Cardiomegaly. No significant pericardial effusion. Coronary artery calcificat ions. ABDOMEN LIVER: Unremarkable noncontrast appearance GALLBLADDER AND BILE DUCTS: Layering increased densities within the lumen consistent with gallstones are present. No surrounding inflammatory changes. No biliary duct dilatation. PANCREAS: Unremarkable. SPLEEN: Unremarkable. ADRENAL GLANDS: Unremarkable. KIDNEYS AND URETERS: No evidence of hydronephrosis or renal calculus. Bilateral perinephric fat stran ding without discernible organized fluid collection. Redemonstration of right renal mass which is poo rly evaluated due to lack of intravenous contrast. Difficult to discern borders or change in size due to lack of intravenous contrast. PELVIS BLADDER: Nondistended with Santiago catheter in place. Nondependent foci of gas within the urinary bladd er likely from catheter placement. REPRODUCTIVE: Unremarkable noncontrast appearance ABDOMEN & PELVIS STOMACH AND BOWEL: Enteric tube appropriately terminates within the stomach.No focal bowel wall thick ening. Mild hyperdense colonic stool. No evidence of bowel obstruction. PERITONEUM: No evidence of pneumoperitoneum. Trace free fluid in the pelvis. VASCULATURE: Mild atherosclerotic calcifications are present throughout the abdominal aorta and its b ranches. No evidence of aortic aneurysm. Pelvic phleboliths. Right inguinal approach central venous c atheter identified with disc terminating in the right iliac vein. MUSCULOSKELETAL: No acute osseous abnormalities. Mild disc degeneration changes are present throughou t the thoracolumbar spine. LYMPH NODES: No gross evidence for lymphadenopathy. SOFT TISSUE/ABDOMINAL WALL: Diffuse anasarca. Small fat filled umbilical hernia. Foci of gas with cher ma identified within the dorsal left hand. Probably related to IV access. Additional foci of gas with in the soft tissues of the right lower abdomen likely related to medication injection. IMPRESSION: 1. No evidence for intra-abdominal/pelvic or organized fluid collection within limitations of a nonc ontrast exam. 2. Cholelithiasis. 3. Bibasilar patchy consolidative opacities with air bronchograms suggesting pneumonia. 4. Diffuse anasarca with small right pleural effusion and trace free fluid in the pelvis. Correlate for volume overload. [facility], , 09/10/2024 11:28 AM
[2024-09-10 12:35] LABS: Glucose,Whole Blood 255 mg/dL (70-110)
--- NOTE | 2024-09-10 12:54 | P.PN ---
Subjective Progress Note Date: 09/10/24 Patient is a 64-year-old male with past medical history significant for diabetes mellitus, chronic kidney disease, hyperlipidemia, hypertension, among other things. Patient is currently in the intensive care unit, he is a poor historian. Unable to provide reliable history. The ER provider did not contact me. Per the ER documentation, patient was found on the ground for an unknown known amount of time, last seen well 2 weeks prior by his sister. He was found to be in acute rhabdomyolysis with acute renal failure. He was also found with elevated blood sugars. CT of the brain and C-spine without contrast showing no acute intracranial process and no acute osseous abnormalities of the C-spine. Initial labs include a CBC: WBC count 17.3, hemoglobin 14.6, hematocrit 45.1, platelets 226. CMP: Sodium 136, potassium 5.7, chloride 95, serum bicarb 14, BUN 137, creatinine 8.82, glucose 578. Lactic 1.5. Magnesium 2.7. LFTs mildly elevated. Troponin 0.043. NT proBNP 4510. EKG: normal sinus rhythm, rate 88 bpm, incomplete RBB pattern, without obvious acute ischemic changes. Urine drug screen unremarkable. Serum ETOH < 10. Currently evaluating this patient in the intensive care unit. CPK was 7555 on arrival. Did receive 1.5 L normal saline bolus in in ED and started on normal saline at 130 ml/hr. Subsequently started on sodium bicarbonate infusion 3 A in D5W at 100 mL/h. urine output is in the order of 30 to 50 cc/h. Nephrology is managing. Repeat potassium is down to 4.7. On arrival blood glucose 578, serum bicarb 12, anion gap 27, acetone positive. Patient has also been started on insulin infusion Per protocol. He did develop some respiratory distress, breathing in the high 40s. I did ask for the pateint to be placed on BiPAP with settings 10/5 and FiO2 to be titrated a ppropriately. Chest x-ray showing cardiomegaly. There is a left midlung linear infiltrates concerning for atelectasis or early pneumonia. Patient does have bruising to his left lateral chest. It is painful to palpation without crepitus or subcutaneous emphysema. Patient was empirically started on antibiotics in the ED.Current vitals: 97.6 F, blood pressure 115/85 mmHg, heart rate 78 bpm, tachypneic breathing in the high 40s, SpO2 is 100% on BiPAP with settings 10/5 FiO2 100%. Prognosis is guarded. 09/06/24 - Patient seen at bedside this morning, remaining in the ICU, day 2 of hospitalization, admitted on 09/05/24 and in the ICU since that time. He was placed to mechanical ventilation with intubation yesterday (09/05/24). He is on assist-control with a rate of 20, volume 450, FiO2 40%, PEEP of 5. ABG this morning showed pO2 72, pCO2 34, pH 7.46, indicating respiratory alkalosis with relative hypoxemia. Initial improvement in his WBCs down to 13.6 (from 14.8) this morning, his hemoglobin decreased to 11.2. His BUN is 138, creatinine 7.61. Increase in AST, 3-4, and ALT, up to 113. Phosphorus 5.0, remaining 9, calcium 6.6, remaining well. Creatinine Kinase remains elevated, showing improvements, to 6149. His procalcitonin returned at > 100. His blood cultures were positive for Enterobacter cloacae without resistance noted, patient placed on cefepime - discontinued Rocephin and Zithromax. Patient remained Levophed at 0.09 mcg/kg/min (7.26 mcg/min) and propofol 40 mcg/kg/min. Blood pressure this morning 113/52. He will be started on vital HP 10 cc/h, with a goal being 37 cc/h. 09/07/24 - Patient seen at bedside today, remaining in the ICU, day 3 of [facility]. Admitted on 09/05/24 and in the ICU since that time. He has been intubated on mechanical ventilation since 09/05/24. He remains on assist- control with a rate of 20, volume 450, FiO2 50% and a PEEP of 8. ABG this morning showed pO2 59, pCO2 34, pH 7.46 which indicated respiratory alkalosis with some metabolic alkalosis - this was done while the patient was on an FiO2 of 40%. At that time, patient's FiO2 was up to 50% and his PEEP was increased to 8, since that time he has been saturating well. This morning his WBCs are 9.9, hemoglobin 10.1, platelet count 76, sodium 134, BUN 88, creatinine 4.68, calcium 6.4 and ionized calcium 3.7. Most recent creatinine kinase 2760. Because of the patient's relative hypocalcemia he received 1 g of calcium gluconate. The CVP has been slightly elevated since its insertion, at the time of insertion read ~9, however when seen the patient it was reading 6 indicated the patient is likely euvolemic. Patient remains on Levophed 0.01 mcg/kg/min (8 mcg/min), and on propofol 40 mcg/kg/min and vital HP at 30 cc/h (goal of 37 cc/h). He remains on cefepime and lactated ringer 100 cc/h. His urine was positive, preliminarily, for gram-negative bacilli. Preliminary results of blood culture showed Enterobacter cloacae and Serratia marcescens. 09/08/24 - Patient seen at bedside today, remaining in the ICU, day 4 of hospitalization. Admitted on 09/05/24 and in the ICU since that time. He has been intubated and mechanically ventilated since 09/05/24. He remains on assist-control with a rate of 20, volume 450, FiO2 50% and PEEP of 8. ABG done this morning showed pO2 60, pCO2 32, pH 7.45 indicating a respiratory alkalosis with some evidence of metabolic alkalosis. Patient uneventful overnight. WBCs 10.2, hemoglobin 9.4, sodium 133, BUN 63, creatinine 3.91, calcium 6.7. Patient CVP has been elevated, most recently at 12, indicating some possible hypervolemia. Patient allan on propofol 30 mcg/kg/min, Levophed 0.23 mcg/kg/min (~19 mcg/min), and cefepime. Patient's hemodialysis yesterday, 500 cc was removed. Per the hemodialysis nurse, patient's blood pressure dropped at the start of treatment, leading to pressors being increased at that time. Urine culture now final, positive for Enterobacter cloacae. Blood culture remains preliminary at this time for Enterobacter cloacae and Serratia marcescens. The patient is seen today September 09, 2024 in follow-up in the intensive care unit. He remains intubated on the mechanical ventilator and assist-control mode at a rate of 20, tidal volume 450, FiO2 50% and a PEEP of 8. Morning blood gases revealed a PaO2 of 86, pCO2 33 and a pH of 7.45. He is currently on norep inephrine at 27 mcg/min. Vasopressin at 0.03 units/min. Propofol at 30 mcg/kg/min. Lactated Ringer's at 10 mL/h. Receiving vital HP at 37 mL/h which is goal. He remains on cefepime for Enterobacter Cloacae in the urine. Enterobacter Cloacae and Serratia marcescens in the blood. Have a Tmax last night of 103.4. Currently 99.4. White count 13.5. Hemoglobin 9.6. Platelets 119. Sodium 133. Potassium 3.9. Bicarb 21. BUN 59. Creatinine 3.35. Glucose 245. He is continued on DuoNeb and elations. Heparin for DVT prophylaxis. Remains on Levemir and Lovenox sliding scale. He is currently in a +1.8 L balance. Chest x-ray shows persistent mild to moderate central vascular congestion bilaterally. He has been receiving hemodialysis. On 09/10/2024, the patient is being seen for a follow-up. Remains intubated on the mechanical ventilator. This morning, the patient is on propofol running at 30 mcg/kg/min. He is calm and comfortable and synchronous on mechanical ventilator. He is on assist-control mode of mechanical ventilation at rate of 20, tidal volume of 450, FiO2 of 50% with a PEEP of 5. His chest x-ray from today showing pulmonary vascular congestion and possibly some small bilateral pleural effusion. ET tube is around 4 cm above the nicol. No airspace disease or any consolidations noted. The pH is at 7.39 with a pCO2 of 34 and pO2 of 62. The patient is currently on pressors and is on norepinephrine running at 0.13 mcg/kg/min and he is also on vasopressin physiologic dose regarding his underlying gram-negative sepsis. Antibiotic coverage with IV cefepime for now. Afebrile, urine output is in the order of 5 cc an hour as the patient has developed an acute on top of chronic kidney injury and the fluid balance over the past 24 hours is +2.0 L. The patient is undergoing hemodialysis for now. Hemodialysis catheter is in the right femoral vein. His last hemodialysis session was on 09/09/2024 and another session of hemodialysis is to be done today. The patient blood work from today shows a WBC count of 11.3 with a hemoglobin of 9.7 and a platelet count of 116. Sodium is at 131, bicarb is at 18, potassium is at 4.4, BUN is 81 with a creatinine of 3.8. His liver function tests have improved including a drop in the AST and ALT. Alkaline phosphatase is also down to 218. Albumin is at 1.8 with a total protein of 4.4. As stated earlier, the cultures were positive for Enterobacter in his urine and blood. The blood also showed Serratia marcescens. His echocardiogram done during this current admission shows impaired LV function with an ejection fraction of 30% and there is global decrease in the contractility probably due to his underlying sepsis. He is receiving enteral feeding for nutritional support and is currently on THP vital HP vital HP at a rate of 37 cc an hour. IVF are KVO. Objective - Vital Signs Vital signs: Vital Signs Temp 97.8 F 09/10/24 04:00 Pulse 70 09/10/24 07:00 Resp 33 H 09/10/24 07:00 BP 144/58 09/08/24 10:30 Pulse Ox 97 09/10/24 07:00 FiO2 50 09/10/24 04:00 Intake & Output 09/09/24 09/10/24 09/10/24 18:59 06:59 18:59 Intake Total 1207.755 946.113 Output Total 60 80 Balance 1147.755 866.113 Weight 87.4 kg Intake: IV 163 133 A Line 33 3 Cefepime 1 gm In Sodium 50 Chloride 0.9% 50 ml @ 12. 5 mls/hr IVPB DAILY [facility] Rx#:[id number] LR 80 130 Intake, IV Titration 617.755 443.113 Amount Norepinephrine 8 mg In 495.580 238.183 Sodium Chloride 0.9% 250 ml @ 0.03 MCG/KG/MIN 4. 737 mls/hr IV .Q24H [facility] Rx#:[id number] Vasopressin 60 unit In 55.08 Sodium Chloride 0.9% 150 ml @ 0.03 UNITS/MIN 4.59 mls/hr IV .Q24H [facility] Rx#: [id number] propofoL 1,000 mg In 122.175 149.850 Empty Bag 1 bag @ 15 MCG/ KG/MIN 6.75 mls/hr IV . [id number] [facility] Rx#:[id number] Tube Feeding 407 370 Other 20 Output: Urine 60 80 Other: Voiding Method Indwelling Catheter Indwelling Catheter # Bowel Movements 0 0 ABP, PAP, CO, CI - Last Documented Arterial Blood Pressure 130/48 - Exam GENERAL EXAM: Intubated, sedated 64-year-old male patient on the mechanical ventilator, in no apparent distress. Calm and comfortable, sedated on propofol HEAD: Normocephalic. EYES: Normal reaction of pupils, equal size. NOSE: Clear with pink turbinates. THROAT: Oral endotracheal and gastric tube secured in place. No erythema or exudates. NECK: No masses, no JVD.left IJ tripple lumen and tight radial art line and a right femeral HD cath. CHEST: No chest wall deformity. LUNGS: Equal air entry with coarse scattered rhonchi. CVS: Distant heart tones. S1 and S2 normal with no audible murmur, regular rhythm. ABDOMEN: No hepatosplenomegaly, normal bowel sounds, no guarding or rigidity. SPINE: No scoliosis or deformity SKIN: No rashes CENTRAL NERVOUS SYSTEM: No focal deficits, tone is normal in all 4 extremities. EXTREMITIES: There is 1+ peripheral edema. No clubbing, no cyanosis. Peripheral pulses are intact. - Labs CBC & Chem 7: 09/10/24 03:40 09/10/24 03:40 Labs: Abnormal Lab Results - Last 24 Hours (Table) 09/09/24 09/09/24 09/09/24 Range/Units 11:17 16:41 23:55 WBC (3.8-10.6) k/uL RBC (4.30-5.90) m/uL Hgb (13.0-17.5) gm/dL Hct (39.0-53.0) % Plt Count (150-450) k/uL Neutrophils # (1.3-7.7) k/uL Lymphocytes # (1.0-4.8) k/uL ABG pCO2 (35-45) mmHg ABG pO2 (83-108) mmHg ABG HCO3 (21-25) mmol/L ABG O2 Saturation (94-97) % Hemoglobin (13.0-17.5) gm/dL Sodium (137-145) mmol/L Carbon Dioxide (22-30) mmol/L BUN (9-20) mg/dL Creatinine (0.66-1.25) mg/dL Glucose (74-99) mg/dL POC Glucose (mg/dL) 243 H 251 H 316 H (70-110) mg/dL Calcium (8.4-10.2) mg/dL Total Bilirubin (0.2-1.3) mg/dL Alkaline Phosphatase (38-126) U/L Total Protein (6.3-8.2) g/dL Albumin (3.5-5.0) g/dL 09/10/24 09/10/24 09/10/24 Range/Units 03:40 03:40 05:24 WBC 11.3 H (3.8-10.6) k/uL RBC 3.18 L (4.30-5.90) m/uL Hgb 9.7 L (13.0-17.5) gm/dL Hct 29.1 L (39.0-53.0) % Plt Count 116 L (150-450) k/uL Neutrophils # 10.0 H (1.3-7.7) k/uL Lymphocytes # 0.5 L (1.0-4.8) k/uL ABG pCO2 (35-45) mmHg ABG pO2 (83-108) mmHg ABG HCO3 (21-25) mmol/L ABG O2 Saturation (94-97) % Hemoglobin (13.0-17.5) gm/dL Sodium 131 L (137-145) mmol/L Carbon Dioxide 18 L (22-30) mmol/L BUN 81 H (9-20) mg/dL Creatinine 3.87 H (0.66-1.25) mg/dL Glucose 297 H (74-99) mg/dL POC Glucose (mg/dL) 284 H (70-110) mg/dL Calcium 6.7 L (8.4-10.2) mg/dL Total Bilirubin 5.9 H (0.2-1.3) mg/dL Alkaline Phosphatase 218 H (38-126) U/L Total Protein 4.4 L (6.3-8.2) g/dL Albumin 1.8 L (3.5-5.0) g/dL 09/10/24 Range/Units 05:35 WBC (3.8-10.6) k/uL RBC (4.30-5.90) m/uL Hgb (13.0-17.5) gm/dL Hct (39.0-53.0) % Plt Count (150-450) k/uL Neutrophils # (1.3-7.7) k/uL Lymphocytes # (1.0-4.8) k/uL ABG pCO2 34 L (35-45) mmHg ABG pO2 62 L (83-108) mmHg ABG HCO3 20 L (21-25) mmol/L ABG O2 Saturation 92.0 L (94-97) % Hemoglobin 9.3 L (13.0-17.5) gm/dL Sodium (137-145) mmol/L Carbon Dioxide (22-30) mmol/L BUN (9-20) mg/dL Creatinine (0.66-1.25) mg/dL Glucose (74-99) mg/dL POC Glucose (mg/dL) (70-110) mg/dL Calcium (8.4-10.2) mg/dL Total Bilirubin (0.2-1.3) mg/dL Alkaline Phosphatase (38-126) U/L Total Protein (6.3-8.2) g/dL Albumin (3.5-5.0) g/dL Assessment and Plan Plan: Acute hypoxic respiratory failure, requiring mechanical ventilation and intubation on 09/05/24. Respiratory failure is multifactorial. The patient presented with significant metabolic derangements, acute on top of chronic renal failure, sepsis and decompensated heart failure. Remains intubated on mechanical ventilator and the chest x-ray is consistent with CHF.Repeat chest x- ray from today shows stable findings with scattered infiltrates that are unchanged Acute rhabdomyolysis, resolved, and the CPK levels have been downtrending Acute on top of chronic kidney disease. The patient is known to have stage 3 chronic kidney disease and the patient developed an acute kidney injury/ATN, currently on hemodialysis, femoral hemodialysis catheter in place Systolic heart failure with an ejection fraction of 30% Elevated troponins, in setting of acute renal failure Sepsis, secondary to urinary tract infection. Noted Enterobacter cloacae was cultured in the urine and the blood and the blood culture is also positive for Serratia marcescens. The patient is currently on IV cefepime. Patient remains on a combination of norepinephrine and vasopressin for hemodynamic support. Fever secondary to sepsis, currently afebrile Leukocytosis secondary to above, improving Hypertension Mechanical fall, is on home 2 weeks prior Hyperkalemia, resolved Anion gap metabolic acidosis, resolved Hyperphosphatemia, improving Hypocalcemia likely secondary to decreased albumin History of hypertension Hyperlipidemia diabetes mellitus type 2 Hx of frequent UTIs Plan: Continue ventilator support, no changes on the mechanical ventilator for today Chest x-ray was noted and the findings are essentially stable Continue cefepime Titrate down the pressors as tolerated to keep the mean arterial pressure above 65, currently on norepinephrine CAT scan of the abdomen and pelvis Continue IV cefepime Continue Levemir insulin 10 units in the morning and 50 units at nighttime along with a sliding scale coverage Amiodarone 200 mg p.o. twice a day Dilaudid for pain control Continue bronchodilators Heparin for DVT prophylaxis Continue hemodialysis per nephrology, hemodialysis to be done today We will continue to follow and make further recommendations based on his clinical status Evaluation was done more than 30 minutes and this is a critical care evaluation Time with Patient: Greater than 30
--- NOTE | 2024-09-10 15:51 | P.PN ---
Subjective Progress Note Date: 09/10/24 Principal diagnosis: Acute kidney injury requiring hemodialysis Patient is seen and examined today as a follow-up for acute kidney injury requiring hemodialysis. Over the weekend dialysis was attempted however catheter was malfunctioning and it was ordered to have tPA placed and well overnight. He remains in the ICU sedated and intubated. Dialysis nurse did attempt hemodialysis again today however catheter is malfunctioning and they were unable to perform hemodialysis today. Objective - Vital Signs Vital signs: Vital Signs Temp 98.0 F 09/10/24 14:05 Pulse 81 09/10/24 15:38 Resp 36 H 09/10/24 15:38 BP 125/47 09/10/24 14:05 Pulse Ox 95 09/10/24 15:00 FiO2 50 09/10/24 15:25 Intake & Output 09/09/24 09/10/24 09/10/24 18:59 06:59 18:59 Intake Total 1207.755 899.670 8238.898 Output Total 60 80 520 Balance 1147.755 866.113 759.898 Weight 87.4 kg 87.4 kg Intake: IV 163 133 166 A Line 33 3 36 Cefepime 1 gm In Sodium 50 50 Chloride 0.9% 50 ml @ 12. 5 mls/hr IVPB DAILY [facility] Rx#:[id number] LR 80 130 80 Intake, IV Titration 617.755 443.113 435.898 Amount Norepinephrine 8 mg In 495.580 238.183 162.527 Sodium Chloride 0.9% 250 ml @ 0.03 MCG/KG/MIN 4. 737 mls/hr IV .Q24H [facility] Rx#:[id number] Vasopressin 60 unit In 55.08 122.171 Sodium Chloride 0.9% 150 ml @ 0.03 UNITS/MIN 4.59 mls/hr IV .Q24H [facility] Rx#: [id number] propofoL 1,000 mg In 122.175 149.850 151.200 Empty Bag 1 bag @ 15 MCG/ KG/MIN 6.75 mls/hr IV . [id number] [facility] Rx#:[id number] Tube Feeding 407 370 148 Hemodialysis 500 Other 20 30 Output: Urine 60 80 20 Hemodialysis 0 Hemodialysis Net Amount 500 Other: Voiding Method Indwelling Catheter Indwelling Catheter Indwelling Catheter # Bowel Movements 0 0 ABP, PAP, CO, CI - Last Documented Arterial Blood Pressure 117/49 - Exam General appearance: The patient is sedated and intubated HET: Head is normocephalic and atraumatic. Neck: Supple. Heart: Regular. Lungs: Equal expansion, on mechanical ventilation. Abdomen: Soft, nondistended. Extremities: Normal skin color and turgor. Right groin with temporary HD catheter with dressing, clean dry and intact. Neurological: Sedated and intubated. - Labs CBC & Chem 7: 09/10/24 03:40 09/10/24 03:40 Labs: Abnormal Lab Results - Last 24 Hours (Table) 09/09/24 09/09/24 09/10/24 Range/Units 16:41 23:55 03:40 WBC 11.3 H (3.8-10.6) k/uL RBC 3.18 L (4.30-5.90) m/uL Hgb 9.7 L (13.0-17.5) gm/dL Hct 29.1 L (39.0-53.0) % Plt Count 116 L (150-450) k/uL Neutrophils # 10.0 H (1.3-7.7) k/uL Lymphocytes # 0.5 L (1.0-4.8) k/uL ABG pCO2 (35-45) mmHg ABG pO2 (83-108) mmHg ABG HCO3 (21-25) mmol/L ABG O2 Saturation (94-97) % Hemoglobin (13.0-17.5) gm/dL Sodium (137-145) mmol/L Carbon Dioxide (22-30) mmol/L BUN (9-20) mg/dL Creatinine (0.66-1.25) mg/dL Glucose (74-99) mg/dL POC Glucose (mg/dL) 251 H 316 H (70-110) mg/dL Calcium (8.4-10.2) mg/dL Total Bilirubin (0.2-1.3) mg/dL Alkaline Phosphatase (38-126) U/L Creatine Kinase (55-170) U/L Total Protein (6.3-8.2) g/dL Albumin (3.5-5.0) g/dL 09/10/24 09/10/24 09/10/24 Range/Units 03:40 03:40 05:24 WBC (3.8-10.6) k/uL RBC (4.30-5.90) m/uL Hgb (13.0-17.5) gm/dL Hct (39.0-53.0) % Plt Count (150-450) k/uL Neutrophils # (1.3-7.7) k/uL Lymphocytes # (1.0-4.8) k/uL ABG pCO2 (35-45) mmHg ABG pO2 (83-108) mmHg ABG HCO3 (21-25) mmol/L ABG O2 Saturation (94-97) % Hemoglobin (13.0-17.5) gm/dL Sodium 131 L (137-145) mmol/L Carbon Dioxide 18 L (22-30) mmol/L BUN 81 H (9-20) mg/dL Creatinine 3.87 H (0.66-1.25) mg/dL Glucose 297 H (74-99) mg/dL POC Glucose (mg/dL) 284 H (70-110) mg/dL Calcium 6.7 L (8.4-10.2) mg/dL Total Bilirubin 5.9 H (0.2-1.3) mg/dL Alkaline Phosphatase 218 H (38-126) U/L Creatine Kinase 680 H (55-170) U/L Total Protein 4.4 L (6.3-8.2) g/dL Albumin 1.8 L (3.5-5.0) g/dL 09/10/24 09/10/24 Range/Units 05:35 12:33 WBC (3.8-10.6) k/uL RBC (4.30-5.90) m/uL Hgb (13.0-17.5) gm/dL Hct (39.0-53.0) % Plt Count (150-450) k/uL Neutrophils # (1.3-7.7) k/uL Lymphocytes # (1.0-4.8) k/uL ABG pCO2 34 L (35-45) mmHg ABG pO2 62 L (83-108) mmHg ABG HCO3 20 L (21-25) mmol/L ABG O2 Saturation 92.0 L (94-97) % Hemoglobin 9.3 L (13.0-17.5) gm/dL Sodium (137-145) mmol/L Carbon Dioxide (22-30) mmol/L BUN (9-20) mg/dL Creatinine (0.66-1.25) mg/dL Glucose (74-99) mg/dL POC Glucose (mg/dL) 255 H (70-110) mg/dL Calcium (8.4-10.2) mg/dL Total Bilirubin (0.2-1.3) mg/dL Alkaline Phosphatase (38-126) U/L Creatine Kinase (55-170) U/L Total Protein (6.3-8.2) g/dL Albumin (3.5-5.0) g/dL Assessment and Plan Assessment: 1. Acute kidney injury requiring hemodialysis status post temporary HD catheter placement 2. Malfunctioning temporary HD catheter 3. Altered mental status changes 4. Rhabdomyolysis 5. Positive UTI 6. Bacteremia Plan: 1. Will plan for temporary hemodialysis catheter placement tomorrow 2. Hemodialysis per recommendations from nephrology Thank you for this consultation, we will continue to follow. The impression and plan of care has been dictated as directed. Dr. Buchanan I performed a history and examination of this patient, discussed the same with the dictator. I agree with the dictator's note ,documented as a scribe. Any additional findings or plans will be noted.
[2024-09-10 17:55] LABS: Glucose,Whole Blood 247 mg/dL (70-110)
[2024-09-10 18:00] LABS: Glucose,Whole Blood 237 mg/dL (70-110)
[2024-09-10] MEDS: ZINC OXIDE 20% OINT 28.4 GM TUBE TOPICAL SCH (20:06)
--- NOTE | 2024-09-10 21:36 | P.PN ---
Subjective Progress Note Date: 09/10/24 This is a 64-year-old male with medical history significant for hyperlipidemia, diabetes mellitus, heart failure, chronic kidney disease, hypertension. Medical history is obtained from the patient's sister who is at the bedside. Patient is currently on the mechanical ventilator. Patient presented to the hospital yesterday afternoon after being found on the ground responsive by family. Sister states that she goes over to the patient's house every Tuesday to set up his medications for the week. Patient had another family member in the room states that they had spoken over the phone on . When patient's sister arrived to the house on Tuesday after not hearing from him for a few days she f ound him on the ground unresponsive and states that none of his medications from his pack were taken on Tuesday or Tuesday. This brought into the hospital by ambulance. He is currently intubated and sedated on the mechanical ventilator. Chest x-ray reveals mild linear infiltrate within the mid left lung may be atelectasis or early pneumonia. EKG reveals normal sinus rhythm heart rate of 88 EKG reads as possible right ventricular hypertrophy with inferior NE probably old and an anterior lateral NE of indeterminate age. Brain CT and cervical spine CT revealed no acute changes no evidence for any fracture or stroke. Initial blood work reveals a white blood cell count of 17.3, sodium level of 136 potassium of 5.7, BUN of 137, creatinine of 8.82, blood glucose of 578, lactic acid of 2.6, Phos level 10.6, magnesium of 2.7, AST of 150 ALT of 71, creat kinase of 7555, troponin level is 0.043, proBNP of 4510. Urinalysis is completed with brown turbid urine with greater than 182 RBCs greater than 182 WBCs with many bacteria. His urine drug toxicology is negative serum alcohol is less than 10 he is acetone positive. His viral panel and Legionella screenings are all negative. Was admitted to the hospital intensive care unit secondary to the diabetic ketoacidosis and rhabdomyolysis. There is concern for underlying infection or sepsis he is started empirically on IV azithromycin and IV ceftriaxone. Patient was fluid resuscitated with 2 L of normal saline given in the ER and an infusion of normal saline at 130 mL/h. He did have a repeat chest x-ray completed this morning which is concerning for congestive heart failure and was given a dose of IV Lasix. 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 Echocardiogram has been ordered and is currently pending at this time. 09/06/2024 Patient is seen in follow-up in the ICU continues on mechanical ventilation with an FiO2 of 40% and PEEP is 5 maintaining good oxygen saturations. Patient's kidney functions worsened showing a creatinine of 7.61 with a BUN of 138 and vascular surgery was consulted and patient is being initiated on hemodialysis. Creatinine kinase is trending down and currently 6149, maintained on fluids. Insulin drip has been placed on hold and will initiate sliding scale with Accu- Cheks per protocol. Patient continues on pressor support along with sedation. Patient continues on IV antibiotics with infectious disease following as well. 09/07/2024 Patient evaluated in follow up in the ICU. Remains on the mechanical ventilator with FiO2 of 40% PEEP of 5. Propofol on hold he is responding to stimuli at this time. Patient received temporary dialysis catheter and has undergone hemodialysis yesterday and again today. Labs today show significant improvement in his renal function with BUN of 88 and creatinine of 4.68. Blood culture coming back with serratia marcescens and enterobacter cloacae complex. Urine culture also showing enterobacter cloacae. ID following and patient remains on IV antibiotics. Chest xray reveals possible worsening CHF. Chest xray reveals persistent mild/moderate central vascular congestion bilaterally consistent with fluid overload state. 09/08/2024 Patient is eval today in follow-up in the intensive care unit patient remains in the mechanical ventilator with an FiO2 of 40%, PEEP of 5. Patient is currently sedated with propofol. Patient has been started on hemodialysis and had third session of dialysis today was cut short as patient was unable to obtain ultrafiltration goal secondary to decreased blood pressures. Additionally there was an issue with the hemodialysis catheter and has received dose of alteplase x 2. Patient was started on Levophed 36 mL/h currently. Received an 80 mg dose of IV lasix last night. Blood pressure today in the low 100s systolic. 09/09/2024 Patient evaluated today in follow-up remains in intensive care unit on mechanical ventilator with an FiO2 40% a PEEP of 5. Patient is currently sedated with propofol. Patient is scheduled to undergo hemodialysis tomorrow. Chest x-ray today reveals persistent mild/moderate central venous congestion bilaterally consistent with a fluid overload state. No significant change from 1 day earlier. Patient remains on oral amiodarone. Continues on Levophed. Remains on IV cefepime. Blood glucose in the 200s. Additional blood work reveals a white blood cell count 13.5, hemoglobin 9.6, platelet count of 119, sodium of 133, potassium 3.9, BUN of 59, creatinine of 3.35. His LFTs are improving with a bilirubin of 6.8, AST of 78, ALT of 48, alk phos of 238. 09/10/2024 Patient is evaluated in follow-up in the intensive care unit. Patient continues on mechanical ventilator with an FiO2 of 50%, PEEP of 5. Patient remains sedated with propofol. Blood pressures remain in the 100s systolic and he continues on Levophed. Patient's blood glucose has been elevated in the mid 100s. He continues on enteral feedings. Continues on IV cefepime. Repeat blood culture is negative. Patient did have abdominal pelvis CT completed today which reveals no evidence for intra-abdominal pelvic or organized fluid collection within the limitations of a noncontrast exam. There is cholelithiasis. Bibasilar patchy consolidative opacities with air bronchograms suggesting pneumonia. Diffuse anasarca with small right pleural effusion and trace free fluid in the pelvis. Correlate for volume overload. Blood work today reveals a white blood cell count 11.3, hemoglobin 9.7, sodium of 131, BUN of 81 creatinine of 3.87. His bilirubin is trending down to 5.9 AST and ALT have normalized alk phos of 218. Creat kinase is down to 680. Chest x-ray r eveals scattered infiltrates. REVIEW OF SYSTEMS: Unable to complete review of systems at this time patient is currently intubated and sedated. PHYSICAL EXAMINATION: GENERAL: The patient is sedated and on the mechanical ventilator, FiO2 is 50% with a PEEP of 5. Not in any acute distress. Well developed, well nourished. Ill-appearing, obese, elderly appearing HEENT: Pupils are round and equally reacting to light. EOMI. No scleral icterus. No conjunctival pallor. Normocephalic, atraumatic. No pharyngeal erythema. No thyromegaly. CARDIOVASCULAR: S1 and S2 muffled, tachy PULMONARY: Diminished breath sounds bilaterally otherwise chest is clear to auscultation, no wheezing or crackles. ABDOMEN: Soft, nontender, nondistended, normoactive bowel sounds. No palpable organomegaly. Bruise on the left upper abdomen. MUSCULOSKELETAL: No joint swelling or deformity. EXTREMITIES: No cyanosis, clubbing, or pedal edema. NEUROLOGICAL: Unable to completely assess as patient is on mechanical vent ilation and sedated SKIN: No rashes. Pale Pt is jaundiced. Has a scab in the left axilla. Assessment and plan Altered mental status secondary to acute metabolic encephalopathy Sepsis with fever and lactic acidosis Acute UTI with sepsis and septic shock; requiring pressor support present on admission Bacteremia with enterobacter and serratia. Acute hypoxemic respiratory failure requiring mechanical intubation, FiO2 is 50% with a PEEP of 5 Diabetic ketoacidosis, improving and patient being transitioned off insulin drip will continue sliding scale along with long-acting Anion gap metabolic acidosis Acute kidney injury acute tubular necrosis secondary to sepsis, worsening kidney functions now requiring hemodialysis, dialysis catheter placed on 09/06/2024 Acute rhabdomyolysis secondary to prolonged downtime with CK of 7555 on admission. Significantly improved. Acute on chronic systolic heart failure Chronic Kidney disease Troponin elevation likely type II NE, although need to rule out NSTEMI Transaminitis Leukocytosis Diabetes mellitus type 2 uncontrolled with DKA Hyperlipidemia Hypertension maintained on lisinopril which is currently being held secondary to the renal dysfunction, currently hypotensive, requiring pressor support GI prophylaxis DVT prophylaxis Full Code Plan: Nephrology consultation and has consulted vascular surgery for hemodialysis catheter placement for emergent dialysis Patient continues with hemodialysis per nephrology. Patient underwent hemodialysis today. Echocardiogram was done showing a reduced EF of 30 to 35% with no pericardial effusion with aortic valve sclerosis Cardiology consultation in place. Continue IV cefepime. Repeat blood cultures are negative Patient is significantly jaundiced bilirubin is trending down and LFTS are improved. Blood glucose elevated in the 250s and levemir will be increased to 20 units BID with further adjustments if patient remains hyperglycemic. Continue accuchecks with sliding scale insulin Q6hour. Repeat blood work in the AM The impression and plan of care has been dictated by Kristin Huynh Nurse Practitioner as directed. Dr. Iwona MD I have performed a history and physical examination and medical decision making of this patient, discussed the same with the dictator, and agree with the dictators assessment and plan as written, documented as a scribe. Based on total visit time, I have performed more than 50% of this visit. Objective - Vital Signs Vital signs: Vital Signs Temp 99.4 F 09/10/24 20:00 Pulse 84 09/10/24 20:29 Resp 32 H 09/10/24 20:15 BP 125/47 09/10/24 14:05 Pulse Ox 96 09/10/24 20:15 FiO2 50 09/10/24 20:15 Intake & Output 09/10/24 09/10/24 09/11/24 06:59 18:59 06:59 Intake Total 664.003 7718.398 329.662 Output Total 80 550 18 Balance 697.744 2777.398 311.662 Weight 87.4 kg 87.4 kg Intake: IV 133 214 32 A Line 3 54 12 Cefepime 1 gm In Sodium 50 Chloride 0.9% 50 ml @ 12. 5 mls/hr IVPB DAILY [facility] Rx#:[id number] LR 130 110 20 Intake, IV Titration 443.113 494.398 201.662 Amount Norepinephrine 8 mg In 238.183 162.527 151.524 Sodium Chloride 0.9% 250 ml @ 0.03 MCG/KG/MIN 4. 737 mls/hr IV .Q24H [facility] Rx#:[id number] Vasopressin 60 unit In 55.08 122.171 Sodium Chloride 0.9% 150 ml @ 0.03 UNITS/MIN 4.59 mls/hr IV .Q24H [facility] Rx#: [id number] propofoL 1,000 mg In 149.850 209.700 50.138 Empty Bag 1 bag @ 15 MCG/ KG/MIN 6.75 mls/hr IV . [id number] [facility] Rx#:[id number] Tube Feeding 370 484 96 Hemodialysis 500 Other 30 Output: Urine 80 50 18 Hemodialysis 0 Hemodialysis Net Amount 500 Other: Voiding Method Indwelling Catheter Indwelling Catheter # Bowel Movements 0 ABP, PAP, CO, CI - Last Documented Arterial Blood Pressure 113/46 - Labs CBC & Chem 7: 09/10/24 03:40 09/10/24 03:40 Labs: Abnormal Lab Results - Last 24 Hours (Table) 09/09/24 09/10/24 09/10/24 Range/Units 23:55 03:40 03:40 WBC 11.3 H (3.8-10.6) k/uL RBC 3.18 L (4.30-5.90) m/uL Hgb 9.7 L (13.0-17.5) gm/dL Hct 29.1 L (39.0-53.0) % Plt Count 116 L (150-450) k/uL Neutrophils # 10.0 H (1.3-7.7) k/uL Lymphocytes # 0.5 L (1.0-4.8) k/uL ABG pCO2 (35-45) mmHg ABG pO2 (83-108) mmHg ABG HCO3 (21-25) mmol/L ABG O2 Saturation (94-97) % Hemoglobin (13.0-17.5) gm/dL Sodium 131 L (137-145) mmol/L Carbon Dioxide 18 L (22-30) mmol/L BUN 81 H (9-20) mg/dL Creatinine 3.87 H (0.66-1.25) mg/dL Glucose 297 H (74-99) mg/dL POC Glucose (mg/dL) 316 H (70-110) mg/dL Calcium 6.7 L (8.4-10.2) mg/dL Total Bilirubin 5.9 H (0.2-1.3) mg/dL Alkaline Phosphatase 218 H (38-126) U/L Creatine Kinase (55-170) U/L Total Protein 4.4 L (6.3-8.2) g/dL Albumin 1.8 L (3.5-5.0) g/dL 09/10/24 09/10/24 09/10/24 Range/Units 03:40 05:24 05:35 WBC (3.8-10.6) k/uL RBC (4.30-5.90) m/uL Hgb (13.0-17.5) gm/dL Hct (39.0-53.0) % Plt Count (150-450) k/uL Neutrophils # (1.3-7.7) k/uL Lymphocytes # (1.0-4.8) k/uL ABG pCO2 34 L (35-45) mmHg ABG pO2 62 L (83-108) mmHg ABG HCO3 20 L (21-25) mmol/L ABG O2 Saturation 92.0 L (94-97) % Hemoglobin 9.3 L (13.0-17.5) gm/dL Sodium (137-145) mmol/L Carbon Dioxide (22-30) mmol/L BUN (9-20) mg/dL Creatinine (0.66-1.25) mg/dL Glucose (74-99) mg/dL POC Glucose (mg/dL) 284 H (70-110) mg/dL Calcium (8.4-10.2) mg/dL Total Bilirubin (0.2-1.3) mg/dL Alkaline Phosphatase (38-126) U/L Creatine Kinase 680 H (55-170) U/L Total Protein (6.3-8.2) g/dL Albumin (3.5-5.0) g/dL 09/10/24 09/10/24 09/10/24 Range/Units 12:33 17:53 17:59 WBC (3.8-10.6) k/uL RBC (4.30-5.90) m/uL Hgb (13.0-17.5) gm/dL Hct (39.0-53.0) % Plt Count (150-450) k/uL Neutrophils # (1.3-7.7) k/uL Lymphocytes # (1.0-4.8) k/uL ABG pCO2 (35-45) mmHg ABG pO2 (83-108) mmHg ABG HCO3 (21-25) mmol/L ABG O2 Saturation (94-97) % Hemoglobin (13.0-17.5) gm/dL Sodium (137-145) mmol/L Carbon Dioxide (22-30) mmol/L BUN (9-20) mg/dL Creatinine (0.66-1.25) mg/dL Glucose (74-99) mg/dL POC Glucose (mg/dL) 255 H 247 H 237 H (70-110) mg/dL Calcium (8.4-10.2) mg/dL Total Bilirubin (0.2-1.3) mg/dL Alkaline Phosphatase (38-126) U/L Creatine Kinase (55-170) U/L Total Protein (6.3-8.2) g/dL Albumin (3.5-5.0) g/dL Microbiology - Last 24 Hours (Table) 09/05/24 14:30 Blood Culture - Final Blood Assessment and Plan Time with Patient: Less than 30
[2024-09-10 23:28] LABS: Glucose,Whole Blood 209 mg/dL (70-110)
[2024-09-11 05:24] LABS: Glucose,Whole Blood 173 mg/dL (70-110)
[2024-09-11 05:35] LABS: ABG Base Excess -2.9 mmol/L; ABG HCO3 21 mmol/L (21-25); ABG Oxygen Saturation 88.1 % (94-97); ABG PCO2 34 mmHg (35-45); ABG PH 7.41 (7.35-7.45); ABG TCO2 22 mmol/L (19-24); Allen Test Performed? Yes
[2024-09-11 05:36] LABS: ABG PO2 54 mmHg (83-108)
[2024-09-11 05:43] LABS: HCT 26.2 % (39.0-53.0); HGB 8.9 gm/dL (13.0-17.5); MCH 30.6 pg (25.0-35.0); MCV 89.9 fL (80.0-100.0); Mean Platelet Volume 10.2; Platelet Count 155 k/uL (150-450); RBC 2.91 m/uL (4.30-5.90); RDW 15.3 % (11.5-15.5); WBC 12.6 k/uL (3.8-10.6)
[2024-09-11 05:55] LABS: ALT 30 U/L (4-49); AST 28 U/L (17-59); African American GFR (CKD) 15 (>60 ml/min/1.73 sqM); Albumin 1.8 g/dL (3.5-5.0); Alkaline Phosphatase 187 U/L (38-126); Anion Gap 11 mmol/L; Blood Urea Nitrogen 92 mg/dL (9-20); Calcium 7.1 mg/dL (8.4-10.2); Carbon Dioxide 18 mmol/L (22-30); Chloride 103 mmol/L (98-107); Glucose 161 mg/dL (74-99); Non-African American GFR(CKD) 13 (>60 ml/min/1.73 sqM); Potassium 4.4 mmol/L (3.5-5.1); Sodium 132 mmol/L (137-145); Total Bilirubin 5.7 mg/dL (0.2-1.3); Total Protein 4.7 g/dL (6.3-8.2)
--- NOTE | 2024-09-11 07:56 | XR ---
EXAMINATION TYPE: XR chest 1V portable DATE OF EXAM: 09/11/2024 5:17 AM COMPARISON: 09/10/2024 CLINICAL INDICATION: Male, 64 years old with history of mechanical ventilation, FINDINGS: Indwelling tubes and catheters are unchanged. Stable scattered in bibasilar infiltrates with reticulonodular appearance. Stable appearance of the cardio-mediastinal structures at this time. IMPRESSION: 1. Stable portable chest. Clinical correlation and follow up until resolution is recommended. [facility], , 09/11/2024 7:54 AM
[2024-09-11] MEDS: INSULIN DETEMIR (LEVEMIR) 100 UNIT/ML SYR SQ SCH (08:48)
[2024-09-11] MEDS: HEPARIN SODIUM 1,000 UN/ML (10ML VL) MISCELLANE ONE (09:39)
[2024-09-11] MEDS: FUROSEMIDE 10 MG/ML 10 ML VIAL IV STA (09:39)
--- NOTE | 2024-09-11 09:54 | P.PN ---
Subjective Patient is seen in follow-up for acute kidney injury on chronic kidney disease. Started on hemodialysis September 06, 2024 via right femoral catheter. Catheter was not functioning yesterday and new catheter was placed this morning. On Levophed and vasopressin. Oliguric. Intubated. Vital signs are stable. On vasopressor support. General: Resting in bed. HEENT: Intubated. LUNGS: Scattered rhonchi. HEART: Rate and Rhythm are regular. ABDOMEN: No distention. EXTREMITITES: Trace edema. Objective - Vital Signs Vital signs: Vital Signs Temp 99.6 F 09/11/24 08:00 Pulse 81 09/11/24 09:00 Resp 33 H 09/11/24 09:00 BP 125/47 09/10/24 14:05 Pulse Ox 91 L 09/11/24 09:00 FiO2 50 09/11/24 09:00 Intake & Output 09/10/24 09/11/24 09/11/24 18:59 06:59 18:59 Intake Total 3316.104 2166.880 351.631 Output Total 550 48 15 Balance 7104.905 9083.880 336.631 Weight 87.4 kg 90.6 kg Intake: IV 214 192 48 A Line 54 72 18 Cefepime 1 gm In Sodium 50 Chloride 0.9% 50 ml @ 12. 5 mls/hr IVPB DAILY [facility] Rx#:[id number] LR 110 120 30 Intake, IV Titration 494.398 600.880 129.631 Amount Norepinephrine 8 mg In 162.527 390.442 42.631 Sodium Chloride 0.9% 250 ml @ 0.03 MCG/KG/MIN 4. 737 mls/hr IV .Q24H [facility] Rx#:[id number] Vasopressin 60 unit In 122.171 Sodium Chloride 0.9% 150 ml @ 0.03 UNITS/MIN 4.59 mls/hr IV .Q24H [facility] Rx#: [id number] propofoL 1,000 mg In 209.700 210.438 87 Empty Bag 1 bag @ 15 MCG/ KG/MIN 6.75 mls/hr IV . [id number] [facility] Rx#:[id number] Tube Feeding 484 576 144 Hemodialysis 500 Other 30 30 Output: Urine 50 48 15 Hemodialysis 0 Hemodialysis Net Amount 500 Other: Voiding Method Indwelling Catheter Indwelling Catheter Indwelling Catheter ABP, PAP, CO, CI - Last Documented Arterial Blood Pressure 117/47 - Labs CBC & Chem 7: 09/11/24 05:20 09/11/24 05:20 Labs: Abnormal Lab Results - Last 24 Hours (Table) 09/10/24 09/10/24 09/10/24 Range/Units 03:40 12:33 17:53 WBC (3.8-10.6) k/uL RBC (4.30-5.90) m/uL Hgb (13.0-17.5) gm/dL Hct (39.0-53.0) % ABG pCO2 (35-45) mmHg ABG pO2 (83-108) mmHg ABG O2 Saturation (94-97) % Hemoglobin (13.0-17.5) gm/dL Sodium (137-145) mmol/L Carbon Dioxide (22-30) mmol/L BUN (9-20) mg/dL Creatinine (0.66-1.25) mg/dL Glucose (74-99) mg/dL POC Glucose (mg/dL) 255 H 247 H (70-110) mg/dL Calcium (8.4-10.2) mg/dL Total Bilirubin (0.2-1.3) mg/dL Alkaline Phosphatase (38-126) U/L Creatine Kinase 680 H (55-170) U/L Total Protein (6.3-8.2) g/dL Albumin (3.5-5.0) g/dL 09/10/24 09/10/24 09/11/24 Range/Units 17:59 23:26 05:20 WBC 12.6 H (3.8-10.6) k/uL RBC 2.91 L (4.30-5.90) m/uL Hgb 8.9 L (13.0-17.5) gm/dL Hct 26.2 L (39.0-53.0) % ABG pCO2 (35-45) mmHg ABG pO2 (83-108) mmHg ABG O2 Saturation (94-97) % Hemoglobin (13.0-17.5) gm/dL Sodium (137-145) mmol/L Carbon Dioxide (22-30) mmol/L BUN (9-20) mg/dL Creatinine (0.66-1.25) mg/dL Glucose (74-99) mg/dL POC Glucose (mg/dL) 237 H 209 H (70-110) mg/dL Calcium (8.4-10.2) mg/dL Total Bilirubin (0.2-1.3) mg/dL Alkaline Phosphatase (38-126) U/L Creatine Kinase (55-170) U/L Total Protein (6.3-8.2) g/dL Albumin (3.5-5.0) g/dL 09/11/24 09/11/24 09/11/24 Range/Units 05:20 05:22 05:31 WBC (3.8-10.6) k/uL RBC (4.30-5.90) m/uL Hgb (13.0-17.5) gm/dL Hct (39.0-53.0) % ABG pCO2 34 L (35-45) mmHg ABG pO2 54 L* (83-108) mmHg ABG O2 Saturation 88.1 L (94-97) % Hemoglobin 8.7 L (13.0-17.5) gm/dL Sodium 132 L (137-145) mmol/L Carbon Dioxide 18 L (22-30) mmol/L BUN 92 H (9-20) mg/dL Creatinine 4.53 H (0.66-1.25) mg/dL Glucose 161 H (74-99) mg/dL POC Glucose (mg/dL) 173 H (70-110) mg/dL Calcium 7.1 L (8.4-10.2) mg/dL Total Bilirubin 5.7 H (0.2-1.3) mg/dL Alkaline Phosphatase 187 H (38-126) U/L Creatine Kinase (55-170) U/L Total Protein 4.7 L (6.3-8.2) g/dL Albumin 1.8 L (3.5-5.0) g/dL Microbiology - Last 24 Hours (Table) 09/05/24 14:30 Blood Culture - Final Blood Assessment and Plan Plan: Assessment: 1. Acute kidney injury secondary to ATN secondary to septic shock. Oliguric. No hydronephrosis noted on imaging. Started on hemodialysis September 06, 2024 via right femoral catheter; left femoral catheter was placed September 11, 2024. 2. Chronic kidney disease stage IIIb with baseline creatinine 1.8-2 secondary to diabetic kidney disease. 3. Septic shock with blood cultures positive for Enterobacter and Serratia and urine culture positive for Enterobacter. On antibiotics. 4. Metabolic acidosis secondary to acute kidney injury. 5. Diabetes mellitus. 6. Rhabdomyolysis. CK levels trending down. CK level 680 dated September 10, 2024. 7. Acute hypoxic respiratory failure. Intubated. 8. History of right renal mass not clearly seen on ultrasound this admission. Will need to see urology outpatient. 9. Volume overload. m Plan: Hemodialysis today and again tomorrow. Lasix 80 mg IV once today. Maintain tube feeds. Wean FiO2 and vasopressors. Continue to monitor renal function and urine output. Phosphorus level 5.0 dated September 06, 2024. Will repeat.
[2024-09-11] MEDS: ERTAPENEM 0.5 GM in SODIUM CHLORIDE 0.9% 50 ML IVPB SCH (11:03)
--- NOTE | 2024-09-11 11:14 | P.PN ---
Progress Note - Text Progress Note Date: 09/11/24 Patient remains sedated and intubated. Scrotal swelling. Right groin with temp catheter in place with dressing clean dry and intact. Palpable radial and DP pulses. Yesterday his dialysis catheter was malfunctioning. Patient was unable to get dialysis. He will get temp HD catheter placed today. Then dialysis per recommendations from nephrology. 1. Malfunctioning temporary HD catheter 2. Acute kidney injury requiring hemodialysis Will plan for temporary HD catheter placement. Hemodialysis per recommendations from neurology. The impression and plan of care has been dictated as directed. I performed a history and examination of this patient, discussed the same with the dictator. I agree with the dictator's note ,documented as a scribe. Any additional findings or plans will be noted.
[2024-09-11 11:18] LABS: Glucose,Whole Blood 196 mg/dL (70-110)
[2024-09-11] MEDS ORDERED: VANCOMYCIN IV PER PHARMACY 1 EACH MISC MISCELLANE PRN (11:36)
[2024-09-11] MEDS: VANCOMYCIN 1,500 MG in SODIUM CHLORIDE 0.9% 500 ML 500 ML IVPB ONE (11:59)
--- NOTE | 2024-09-11 12:37 | P.PN ---
Subjective Progress Note Date: 09/10/24 Principal diagnosis: Reason for follow-up is sepsis and bacteremia Patient is a 64-year-old male with a past medical history significant for diabetes mellitus hyperlipidemia, chronic kidney disease patient has been brought to the hospital after the patient was found on the ground for unknown amount of time patient was noted to be septic requiring admission to the ICU on the ventilator subsequent did have a positive blood culture with Enterobacter. On today's evaluation that is 09/10/2024, patient has been afebrile, patient is intubated on the ventilator FiO2 is currently stable at 50% patient is requiring pressor support no purulent secretion through the ET or any other changes reported. Patient did have a white count down to 11.3 creatinine 3.87 blood and urine is growing Enterobacter, blood is growing both Enterobacter and Serratia patient did have abdominal pelvis CT no evidence of intra-abdominal abscess cholelithiasis bibasilar patchy consolidative opacities, sputum culture as of 09/05/2024 has been negative Objective - Vital Signs Vital signs: Vital Signs Temp 98.0 F 09/10/24 14:05 Pulse 71 09/10/24 14:05 Resp 14 09/10/24 14:05 BP 125/47 09/10/24 14:05 Pulse Ox 94 L 09/10/24 14:00 FiO2 50 09/10/24 14:05 Intake & Output 09/09/24 09/10/24 09/10/24 18:59 06:59 18:59 Intake Total 1207.755 761.856 8874.898 Output Total 60 80 520 Balance 1147.755 866.113 743.898 Weight 87.4 kg 87.4 kg Intake: IV 163 133 150 A Line 33 3 30 Cefepime 1 gm In Sodium 50 50 Chloride 0.9% 50 ml @ 12. 5 mls/hr IVPB DAILY [facility] Rx#:[id number] LR 80 130 70 Intake, IV Titration 617.755 443.113 435.898 Amount Norepinephrine 8 mg In 495.580 238.183 162.527 Sodium Chloride 0.9% 250 ml @ 0.03 MCG/KG/MIN 4. 737 mls/hr IV .Q24H [facility] Rx#:[id number] Vasopressin 60 unit In 55.08 122.171 Sodium Chloride 0.9% 150 ml @ 0.03 UNITS/MIN 4.59 mls/hr IV .Q24H [facility] Rx#: [id number] propofoL 1,000 mg In 122.175 149.850 151.200 Empty Bag 1 bag @ 15 MCG/ KG/MIN 6.75 mls/hr IV . [id number] [facility] Rx#:[id number] Tube Feeding 407 370 148 Hemodialysis 500 Other 20 30 Output: Urine 60 80 20 Hemodialysis 0 Hemodialysis Net Amount 500 Other: Voiding Method Indwelling Catheter Indwelling Catheter Indwelling Catheter # Bowel Movements 0 0 ABP, PAP, CO, CI - Last Documented Arterial Blood Pressure 127/51 - Exam GENERAL DESCRIPTION: An elderly male intubated on the vent RESPIRATORY SYSTEM: Unlabored breathing , decreased breath sounds at bases HEART: S1 S2 regular rate and rhythm , ABDOMEN: Soft , no tenderness EXTREMITIES: No edema feet - Labs CBC & Chem 7: 09/11/24 05:20 09/11/24 05:20 Labs: Abnormal Lab Results - Last 24 Hours (Table) 09/09/24 09/09/24 09/10/24 Range/Units 16:41 23:55 03:40 WBC 11.3 H (3.8-10.6) k/uL RBC 3.18 L (4.30-5.90) m/uL Hgb 9.7 L (13.0-17.5) gm/dL Hct 29.1 L (39.0-53.0) % Plt Count 116 L (150-450) k/uL Neutrophils # 10.0 H (1.3-7.7) k/uL Lymphocytes # 0.5 L (1.0-4.8) k/uL ABG pCO2 (35-45) mmHg ABG pO2 (83-108) mmHg ABG HCO3 (21-25) mmol/L ABG O2 Saturation (94-97) % Hemoglobin (13.0-17.5) gm/dL Sodium (137-145) mmol/L Carbon Dioxide (22-30) mmol/L BUN (9-20) mg/dL Creatinine (0.66-1.25) mg/dL Glucose (74-99) mg/dL POC Glucose (mg/dL) 251 H 316 H (70-110) mg/dL Calcium (8.4-10.2) mg/dL Total Bilirubin (0.2-1.3) mg/dL Alkaline Phosphatase (38-126) U/L Creatine Kinase (55-170) U/L Total Protein (6.3-8.2) g/dL Albumin (3.5-5.0) g/dL 09/10/24 09/10/24 09/10/24 Range/Units 03:40 03:40 05:24 WBC (3.8-10.6) k/uL RBC (4.30-5.90) m/uL Hgb (13.0-17.5) gm/dL Hct (39.0-53.0) % Plt Count (150-450) k/uL Neutrophils # (1.3-7.7) k/uL Lymphocytes # (1.0-4.8) k/uL ABG pCO2 (35-45) mmHg ABG pO2 (83-108) mmHg ABG HCO3 (21-25) mmol/L ABG O2 Saturation (94-97) % Hemoglobin (13.0-17.5) gm/dL Sodium 131 L (137-145) mmol/L Carbon Dioxide 18 L (22-30) mmol/L BUN 81 H (9-20) mg/dL Creatinine 3.87 H (0.66-1.25) mg/dL Glucose 297 H (74-99) mg/dL POC Glucose (mg/dL) 284 H (70-110) mg/dL Calcium 6.7 L (8.4-10.2) mg/dL Total Bilirubin 5.9 H (0.2-1.3) mg/dL Alkaline Phosphatase 218 H (38-126) U/L Creatine Kinase 680 H (55-170) U/L Total Protein 4.4 L (6.3-8.2) g/dL Albumin 1.8 L (3.5-5.0) g/dL 09/10/24 09/10/24 Range/Units 05:35 12:33 WBC (3.8-10.6) k/uL RBC (4.30-5.90) m/uL Hgb (13.0-17.5) gm/dL Hct (39.0-53.0) % Plt Count (150-450) k/uL Neutrophils # (1.3-7.7) k/uL Lymphocytes # (1.0-4.8) k/uL ABG pCO2 34 L (35-45) mmHg ABG pO2 62 L (83-108) mmHg ABG HCO3 20 L (21-25) mmol/L ABG O2 Saturation 92.0 L (94-97) % Hemoglobin 9.3 L (13.0-17.5) gm/dL Sodium (137-145) mmol/L Carbon Dioxide (22-30) mmol/L BUN (9-20) mg/dL Creatinine (0.66-1.25) mg/dL Glucose (74-99) mg/dL POC Glucose (mg/dL) 255 H (70-110) mg/dL Calcium (8.4-10.2) mg/dL Total Bilirubin (0.2-1.3) mg/dL Alkaline Phosphatase (38-126) U/L Creatine Kinase (55-170) U/L Total Protein (6.3-8.2) g/dL Albumin (3.5-5.0) g/dL Assessment and Plan (1) Sepsis Current Visit: Yes Status: Acute Code(s): A41.9 - SEPSIS, UNSPECIFIED ORGANISM SNOMED Code(s): 59863980 (2) Pneumonia Current Visit: Yes Status: Acute Code(s): J18.9 - PNEUMONIA, UNSPECIFIED ORGANISM SNOMED Code(s): 732003627 (3) UTI (urinary tract infection) Current Visit: No Status: Acute Code(s): N39.0 - URINARY TRACT INFECTION, SITE NOT SPECIFIED SNOMED Code(s): 17416816 Plan: 1patient with sepsis in this patient who did have a fever hyortension requiring pressor support maintaining criteria for SIRS source is likely UTI pneumonia not entirely excluded 2-blood culture came back positive with Enterobacter and Serratia, urine is growing Enterobacter 3-patient CT abdominal pelvis did not show any intra-abdominal pelvic abscess concerning for bibasilar pneumonia and cholelithiasis 4patient did have resolution of his fever white count is down continue with cefepime Dictation was produced using [employer] dictation software. please excuse any grammatical, word or spelling errors.
--- NOTE | 2024-09-11 12:38 | P.PN ---
Subjective Progress Note Date: 09/11/24 Principal diagnosis: Reason for follow-up is sepsis and bacteremia Patient is a 64-year-old male with a past medical history significant for diabetes mellitus hyperlipidemia, chronic kidney disease patient has been brought to the hospital after the patient was found on the ground for unknown amount of time patient was noted to be septic requiring admission to the ICU on the ventilator subsequent did have a positive blood culture with Enterobacter. On today's evaluation that is 09/11/2024 the patient did have a low-grade fever 100.6 at midnight the patient is afebrile since then patient remains to be intubated on the vent FiO2 is currently stable at 55% patient is still requiring pressor support however amount is slightly smaller no vomiting diarrhea of the change reported by the nursing staff. Patient white count is 12.6, creatinine is up to 4.53 blood culture repeat has been negative Objective - Vital Signs Vital signs: Vital Signs Temp 98.8 F 09/11/24 12:00 Pulse 81 09/11/24 12:00 Resp 27 H 09/11/24 12:00 BP 125/47 09/10/24 14:05 Pulse Ox 96 09/11/24 12:00 FiO2 55 09/11/24 12:00 Intake & Output 09/10/24 09/11/24 09/11/24 18:59 06:59 18:59 Intake Total 2267.387 9786.880 699.959 Output Total 550 48 20 Balance 9649.098 7703.880 679.959 Weight 87.4 kg 90.6 kg Intake: IV 214 192 96 A Line 54 72 36 Cefepime 1 gm In Sodium 50 Chloride 0.9% 50 ml @ 12. 5 mls/hr IVPB DAILY [facility] Rx#:[id number] LR 110 120 60 Intake, IV Titration 494.398 600.880 291.959 Amount Norepinephrine 8 mg In 162.527 390.442 114.209 Sodium Chloride 0.9% 250 ml @ 0.03 MCG/KG/MIN 4. 737 mls/hr IV .Q24H [facility] Rx#:[id number] Vasopressin 60 unit In 122.171 Sodium Chloride 0.9% 150 ml @ 0.03 UNITS/MIN 4.59 mls/hr IV .Q24H [facility] Rx#: [id number] propofoL 1,000 mg In 209.700 210.438 177.75 Empty Bag 1 bag @ 15 MCG/ KG/MIN 6.75 mls/hr IV . [id number] [facility] Rx#:[id number] Tube Feeding 484 576 252 Hemodialysis 500 Other 30 60 Output: Urine 50 48 20 Hemodialysis 0 Hemodialysis Net Amount 500 Other: Voiding Method Indwelling Catheter Indwelling Catheter Indwelling Catheter ABP, PAP, CO, CI - Last Documented Arterial Blood Pressure 114/43 - Exam GENERAL DESCRIPTION: An elderly male intubated on the vent RESPIRATORY SYSTEM: Unlabored breathing , decreased breath sounds at bases HEART: S1 S2 regular rate and rhythm , ABDOMEN: Soft , no tenderness EXTREMITIES: No edema feet - Labs CBC & Chem 7: 09/11/24 05:20 09/11/24 05:20 Labs: Abnormal Lab Results - Last 24 Hours (Table) 09/10/24 09/10/24 09/10/24 Range/Units 17:53 17:59 23:26 WBC (3.8-10.6) k/uL RBC (4.30-5.90) m/uL Hgb (13.0-17.5) gm/dL Hct (39.0-53.0) % ABG pCO2 (35-45) mmHg ABG pO2 (83-108) mmHg ABG O2 Saturation (94-97) % Hemoglobin (13.0-17.5) gm/dL Sodium (137-145) mmol/L Carbon Dioxide (22-30) mmol/L BUN (9-20) mg/dL Creatinine (0.66-1.25) mg/dL Glucose (74-99) mg/dL POC Glucose (mg/dL) 247 H 237 H 209 H (70-110) mg/dL Calcium (8.4-10.2) mg/dL Total Bilirubin (0.2-1.3) mg/dL Alkaline Phosphatase (38-126) U/L Total Protein (6.3-8.2) g/dL Albumin (3.5-5.0) g/dL 09/11/24 09/11/24 09/11/24 Range/Units 05:20 05:20 05:22 WBC 12.6 H (3.8-10.6) k/uL RBC 2.91 L (4.30-5.90) m/uL Hgb 8.9 L (13.0-17.5) gm/dL Hct 26.2 L (39.0-53.0) % ABG pCO2 (35-45) mmHg ABG pO2 (83-108) mmHg ABG O2 Saturation (94-97) % Hemoglobin (13.0-17.5) gm/dL Sodium 132 L (137-145) mmol/L Carbon Dioxide 18 L (22-30) mmol/L BUN 92 H (9-20) mg/dL Creatinine 4.53 H (0.66-1.25) mg/dL Glucose 161 H (74-99) mg/dL POC Glucose (mg/dL) 173 H (70-110) mg/dL Calcium 7.1 L (8.4-10.2) mg/dL Total Bilirubin 5.7 H (0.2-1.3) mg/dL Alkaline Phosphatase 187 H (38-126) U/L Total Protein 4.7 L (6.3-8.2) g/dL Albumin 1.8 L (3.5-5.0) g/dL 09/11/24 09/11/24 Range/Units 05:31 11:16 WBC (3.8-10.6) k/uL RBC (4.30-5.90) m/uL Hgb (13.0-17.5) gm/dL Hct (39.0-53.0) % ABG pCO2 34 L (35-45) mmHg ABG pO2 54 L* (83-108) mmHg ABG O2 Saturation 88.1 L (94-97) % Hemoglobin 8.7 L (13.0-17.5) gm/dL Sodium (137-145) mmol/L Carbon Dioxide (22-30) mmol/L BUN (9-20) mg/dL Creatinine (0.66-1.25) mg/dL Glucose (74-99) mg/dL POC Glucose (mg/dL) 196 H (70-110) mg/dL Calcium (8.4-10.2) mg/dL Total Bilirubin (0.2-1.3) mg/dL Alkaline Phosphatase (38-126) U/L Total Protein (6.3-8.2) g/dL Albumin (3.5-5.0) g/dL Microbiology - Last 24 Hours (Table) 09/04/24 17:04 Blood Culture Gram Stain - Final Blood Blood Culture - Final Enterobacter cloacae Complex Serratia marcescens Molecular ID 09/05/24 14:30 Blood Culture - Final Blood Assessment and Plan (1) Sepsis Current Visit: Yes Status: Acute Code(s): A41.9 - SEPSIS, UNSPECIFIED ORGANISM SNOMED Code(s): 09381119 (2) Pneumonia Current Visit: Yes Status: Acute Code(s): J18.9 - PNEUMONIA, UNSPECIFIED ORGANISM SNOMED Code(s): 336946902 (3) UTI (urinary tract infection) Current Visit: No Status: Acute Code(s): N39.0 - URINARY TRACT INFECTION, SITE NOT SPECIFIED SNOMED Code(s): 62086062 Plan: 1patient with sepsis in this patient who did have a fever hyortension requiring pressor support maintaining criteria for SIRS source is likely UTI pneumonia not entirely excluded 2-blood culture came back positive with Enterobacter and Serratia, urine is growing Enterobacter 3-patient CT abdominal pelvis did not show any intra-abdominal pelvic abscess concerning for bibasilar pneumonia and cholelithiasis 4patient antibiotics has been adjusted by pulmonary to Invanz and vancomycin however the kidney function need to be monitored closely with the vancomycin repeat culture has been ordered results will be followed Dictation was produced using [employer] dictation software. please excuse any grammatical, word or spelling errors. Time with Patient: Less than 30
--- NOTE | 2024-09-11 15:18 | P.PCN ---
Date of Procedure: 09/11/24 Preoperative Diagnosis: Acute kidney failure, Malfunctioning right common femoral vein hemodialysis catheter Postoperative Diagnosis: Same Procedure(s) Performed: Ultrasound-guided left common femoral vein temporary hemodialysis catheter placement Anesthesia: local Surgeon: Romel Buchanan Estimated Blood Loss (ml): 5 Pathology: none sent Condition: stable Disposition: ICU Indications for Procedure: 64-year-old gentleman currently on hemodialysis due to acute renal failure via right common femoral vein temporary catheter which has not been able to be utilized due to thrombus and malfunction. He is in need of new catheter placement for hemodialysis today. Description of Procedure: The left groin was prepped and draped in usual sterile fashion. Local anesthetic was infused overlying the common femoral vein which was visualized under ultrasound and shown to be patent. Under direct visualization the vein was cannulated with a multipurpose needle and guidewire was placed. Serial dilation was then performed and a 20 cm hemodialysis catheter was guided over the guidewire in the usual manner. The catheter akhil and flushed easily and was hep-locked. The catheter was then sutured in place and cleansed and dressings were placed. Patient tolerated the procedure well.
[2024-09-11] MEDS ORDERED: CEFEPIME 1 GM in SODIUM CHLORIDE 0.9% 50 ML IVPB SCH (16:00)
--- NOTE | 2024-09-11 17:16 | P.PN ---
Subjective Progress Note Date: 09/11/24 This is a 64-year-old male with medical history significant for hyperlipidemia, diabetes mellitus, heart failure, chronic kidney disease, hypertension. Medical history is obtained from the patient's sister who is at the bedside. Patient is currently on the mechanical ventilator. Patient presented to the hospital yesterday afternoon after being found on the ground responsive by family. Sister states that she goes over to the patient's house every Tuesday to set up his medications for the week. Patient had another family member in the room states that they had spoken over the phone on . When patient's sister arrived to the house on Tuesday after not hearing from him for a few days she f ound him on the ground unresponsive and states that none of his medications from his pack were taken on Tuesday or Tuesday. This brought into the hospital by ambulance. He is currently intubated and sedated on the mechanical ventilator. Chest x-ray reveals mild linear infiltrate within the mid left lung may be atelectasis or early pneumonia. EKG reveals normal sinus rhythm heart rate of 88 EKG reads as possible right ventricular hypertrophy with inferior AR probably old and an anterior lateral AR of indeterminate age. Brain CT and cervical spine CT revealed no acute changes no evidence for any fracture or stroke. Initial blood work reveals a white blood cell count of 17.3, sodium level of 136 potassium of 5.7, BUN of 137, creatinine of 8.82, blood glucose of 578, lactic acid of 2.6, Phos level 10.6, magnesium of 2.7, AST of 150 ALT of 71, creat kinase of 7555, troponin level is 0.043, proBNP of 4510. Urinalysis is completed with brown turbid urine with greater than 182 RBCs greater than 182 WBCs with many bacteria. His urine drug toxicology is negative serum alcohol is less than 10 he is acetone positive. His viral panel and Legionella screenings are all negative. Was admitted to the hospital intensive care unit secondary to the diabetic ketoacidosis and rhabdomyolysis. There is concern for underlying infection or sepsis he is started empirically on IV azithromycin and IV ceftriaxone. Patient was fluid resuscitated with 2 L of normal saline given in the ER and an infusion of normal saline at 130 mL/h. He did have a repeat chest x-ray completed this morning which is concerning for congestive heart failure and was given a dose of IV Lasix. Multiple consults in place including nephrology and pulmonary clean room assembler. Echocardiogram has been ordered and is currently pending at this time. 09/06/2024 Patient is seen in follow-up in the ICU continues on mechanical ventilation with an FiO2 of 40% and PEEP is 5 maintaining good oxygen saturations. Patient's kidney functions worsened showing a creatinine of 7.61 with a BUN of 138 and vascular surgery was consulted and patient is being initiated on hemodialysis. Creatinine kinase is trending down and currently 6149, maintained on fluids. Insulin drip has been placed on hold and will initiate sliding scale with Accu- Cheks per protocol. Patient continues on pressor support along with sedation. Patient continues on IV antibiotics with infectious disease following as well. 09/07/2024 Patient evaluated in follow up in the ICU. Remains on the mechanical ventilator with FiO2 of 40% PEEP of 5. Propofol on hold he is responding to stimuli at this time. Patient received temporary dialysis catheter and has undergone hemodialysis yesterday and again today. Labs today show significant improvement in his renal function with BUN of 88 and creatinine of 4.68. Blood culture coming back with serratia marcescens and enterobacter cloacae complex. Urine culture also showing enterobacter cloacae. ID following and patient remains on IV antibiotics. Chest xray reveals possible worsening CHF. Chest xray reveals persistent mild/moderate central vascular congestion bilaterally consistent with fluid overload state. 09/08/2024 Patient is eval today in follow-up in the intensive care unit patient remains in the mechanical ventilator with an FiO2 of 40%, PEEP of 5. Patient is currently sedated with propofol. Patient has been started on hemodialysis and had third session of dialysis today was cut short as patient was unable to obtain ultrafiltration goal secondary to decreased blood pressures. Additionally there was an issue with the hemodialysis catheter and has received dose of alteplase x 2. Patient was started on Levophed 36 mL/h currently. Received an 80 mg dose of IV lasix last night. Blood pressure today in the low 100s systolic. 09/09/2024 Patient evaluated today in follow-up remains in intensive care unit on mechanical ventilator with an FiO2 40% a PEEP of 5. Patient is currently sedated with propofol. Patient is scheduled to undergo hemodialysis tomorrow. Chest x-ray today reveals persistent mild/moderate central venous congestion bilaterally consistent with a fluid overload state. No significant change from 1 day earlier. Patient remains on oral amiodarone. Continues on Levophed. Remains on IV cefepime. Blood glucose in the 200s. Additional blood work reveals a white blood cell count 13.5, hemoglobin 9.6, platelet count of 119, sodium of 133, potassium 3.9, BUN of 59, creatinine of 3.35. His LFTs are improving with a bilirubin of 6.8, AST of 78, ALT of 48, alk phos of 238. 09/10/2024 Patient is evaluated in follow-up in the intensive care unit. Patient continues on mechanical ventilator with an FiO2 of 50%, PEEP of 5. Patient remains sedated with propofol. Blood pressures remain in the 100s systolic and he continues on Levophed. Patient's blood glucose has been elevated in the mid 100s. He continues on enteral feedings. Continues on IV cefepime. Repeat blood culture is negative. Patient did have abdominal pelvis CT completed today which reveals no evidence for intra-abdominal pelvic or organized fluid collection within the limitations of a noncontrast exam. There is cholelithiasis. Bibasilar patchy consolidative opacities with air bronchograms suggesting pneumonia. Diffuse anasarca with small right pleural effusion and trace free fluid in the pelvis. Correlate for volume overload. Blood work today reveals a white blood cell count 11.3, hemoglobin 9.7, sodium of 131, BUN of 81 creatinine of 3.87. His bilirubin is trending down to 5.9 AST and ALT have normalized alk phos of 218. Creat kinase is down to 680. Chest x-ray r eveals scattered infiltrates. 09/11/2024 Patient evaluated in the ICU remains on the mechanical ventilator intubated and sedated. He continues on levophed and vasopressin. On enteral feedings. Chest xray continues to show scattered infiltrates. BUN 92, creatinine 4.53. REVIEW OF SYSTEMS: Unable to complete review of systems at this time patient is currently intubated and sedated. PHYSICAL EXAMINATION: GENERAL: The patient is sedated and on the mechanical ventilator, FiO2 is 50% with a PEEP of 5. Not in any acute distress. Well developed, well nourished. Ill-appearing, obese, elderly appearing HEENT: Pupils are round and equally reacting to light. EOMI. No scleral icterus. No conjunctival pallor. Normocephalic, atraumatic. No pharyngeal erythema. No thyromegaly. CARDIOVASCULAR: S1 and S2 muffled, tachy PULMONARY: Diminished breath sounds bilaterally otherwise chest is clear to auscultation, no wheezing or crackles. ABDOMEN: Soft, nontender, nondistended, normoactive bowel sounds. No palpable organomegaly. Bruise on the left upper abdomen. MUSCULOSKELETAL: No joint swelling or deformity. EXTREMITIES: No cyanosis, clubbing, or pedal edema. NEUROLOGICAL: Unable to completely assess as patient is on mechanical ventilation and sedated SKIN: No rashes. Pale Pt is jaundiced. Has a scab in the left axilla. Assessment and plan Altered mental status secondary to acute metabolic encephalopathy Sepsis with fever and lactic acidosis Acute UTI with sepsis and septic shock; requiring pressor support present on admission Bacteremia with enterobacter and serratia. Acute hypoxemic respiratory failure requiring mechanical intubation, FiO2 is 50% with a PEEP of 5 Diabetic ketoacidosis, improving and patient being transitioned off insulin drip will continue sliding scale along with long-acting Anion gap metabolic acidosis Acute kidney injury acute tubular necrosis secondary to sepsis, worsening kidney functions now requiring hemodialysis, dialysis catheter placed on 09/06/2024 Acute rhabdomyolysis secondary to prolonged downtime with CK of 7555 on admission. Significantly improved. Acute on chronic systolic heart failure Chronic Kidney disease Troponin elevation likely type II AR, although need to rule out NSTEMI Transaminitis Leukocytosis Diabetes mellitus type 2 uncontrolled with DKA Hyperlipidemia Hypertension maintained on lisinopril which is currently being held secondary to the renal dysfunction, currently hypotensive, requiring pressor support GI prophylaxis DVT prophylaxis Full Code Plan: Nephrology consultation and has consulted vascular surgery for hemodialysis catheter placement for emergent dialysis Patient continues with hemodialysis per nephrology. Echocardiogram was done showing a reduced EF of 30 to 35% with no pericardial effusion with aortic valve sclerosis Cardiology consultation in place. Continue IV cefepime. Repeat blood cultures are negative Patient is significantly jaundiced bilirubin is trending down and LFTS are improved. Blood glucose elevated in the 250s and levemir will be increased to 20 units BID with further adjustments if patient remains hyperglycemic. Continue accuchecks with sliding scale insulin Q6hour. Repeat blood work in the AM The impression and plan of care has been dictated by Kristin Huynh, Nurse Practitioner as directed. Dr. Iwona MD I have performed a history and physical examination and medical decision making of this patient, discussed the same with the dictator, and agree with the dictators assessment and plan as written, documented as a scribe. Based on total visit time, I have performed more than 50% of this visit. Objective - Vital Signs Vital signs: Vital Signs Temp 99.6 F 09/11/24 08:00 Pulse 81 09/11/24 08:30 Resp 30 H 09/11/24 08:30 BP 125/47 09/10/24 14:05 Pulse Ox 95 09/11/24 08:30 FiO2 50 09/11/24 08:30 Intake & Output 09/10/24 09/11/24 09/11/24 18:59 06:59 18:59 Intake Total 6307.316 5047.880 351.631 Output Total 550 48 15 Balance 6045.719 6225.880 336.631 Weight 87.4 kg 90.6 kg Intake: IV 214 192 48 A Line 54 72 18 Cefepime 1 gm In Sodium 50 Chloride 0.9% 50 ml @ 12. 5 mls/hr IVPB DAILY [facility] Rx#:[id number] LR 110 120 30 Intake, IV Titration 494.398 600.880 129.631 Amount Norepinephrine 8 mg In 162.527 390.442 42.631 Sodium Chloride 0.9% 250 ml @ 0.03 MCG/KG/MIN 4. 737 mls/hr IV .Q24H [facility] Rx#:[id number] Vasopressin 60 unit In 122.171 Sodium Chloride 0.9% 150 ml @ 0.03 UNITS/MIN 4.59 mls/hr IV .Q24H [facility] Rx#: [id number] propofoL 1,000 mg In 209.700 210.438 87 Empty Bag 1 bag @ 15 MCG/ KG/MIN 6.75 mls/hr IV . [id number] [facility] Rx#:[id number] Tube Feeding 484 576 144 Hemodialysis 500 Other 30 30 Output: Urine 50 48 15 Hemodialysis 0 Hemodialysis Net Amount 500 Other: Voiding Method Indwelling Catheter Indwelling Catheter ABP, PAP, CO, CI - Last Documented Arterial Blood Pressure 136/48 - Labs CBC & Chem 7: 09/11/24 05:20 09/11/24 05:20 Labs: Abnormal Lab Results - Last 24 Hours (Table) 12/16/24 12/16/24 12/16/24 Range/Units 03:40 12:33 17:53 WBC (3.8-10.6) k/uL RBC (4.30-5.90) m/uL Hgb (13.0-17.5) gm/dL Hct (39.0-53.0) % ABG pCO2 (35-45) mmHg ABG pO2 (83-108) mmHg ABG O2 Saturation (94-97) % Hemoglobin (13.0-17.5) gm/dL Sodium (137-145) mmol/L Carbon Dioxide (22-30) mmol/L BUN (9-20) mg/dL Creatinine (0.66-1.25) mg/dL Glucose (74-99) mg/dL POC Glucose (mg/dL) 255 H 247 H (70-110) mg/dL Calcium (8.4-10.2) mg/dL Total Bilirubin (0.2-1.3) mg/dL Alkaline Phosphatase (38-126) U/L Creatine Kinase 680 H (55-170) U/L Total Protein (6.3-8.2) g/dL Albumin (3.5-5.0) g/dL 09/10/24 09/10/24 09/11/24 Range/Units 17:59 23:26 05:20 WBC 12.6 H (3.8-10.6) k/uL RBC 2.91 L (4.30-5.90) m/uL Hgb 8.9 L (13.0-17.5) gm/dL Hct 26.2 L (39.0-53.0) % ABG pCO2 (35-45) mmHg ABG pO2 (83-108) mmHg ABG O2 Saturation (94-97) % Hemoglobin (13.0-17.5) gm/dL Sodium (137-145) mmol/L Carbon Dioxide (22-30) mmol/L BUN (9-20) mg/dL Creatinine (0.66-1.25) mg/dL Glucose (74-99) mg/dL POC Glucose (mg/dL) 237 H 209 H (70-110) mg/dL Calcium (8.4-10.2) mg/dL Total Bilirubin (0.2-1.3) mg/dL Alkaline Phosphatase (38-126) U/L Creatine Kinase (55-170) U/L Total Protein (6.3-8.2) g/dL Albumin (3.5-5.0) g/dL 09/11/24 09/11/24 09/11/24 Range/Units 05:20 05:22 05:31 WBC (3.8-10.6) k/uL RBC (4.30-5.90) m/uL Hgb (13.0-17.5) gm/dL Hct (39.0-53.0) % ABG pCO2 34 L (35-45) mmHg ABG pO2 54 L* (83-108) mmHg ABG O2 Saturation 88.1 L (94-97) % Hemoglobin 8.7 L (13.0-17.5) gm/dL Sodium 132 L (137-145) mmol/L Carbon Dioxide 18 L (22-30) mmol/L BUN 92 H (9-20) mg/dL Creatinine 4.53 H (0.66-1.25) mg/dL Glucose 161 H (74-99) mg/dL POC Glucose (mg/dL) 173 H (70-110) mg/dL Calcium 7.1 L (8.4-10.2) mg/dL Total Bilirubin 5.7 H (0.2-1.3) mg/dL Alkaline Phosphatase 187 H (38-126) U/L Creatine Kinase (55-170) U/L Total Protein 4.7 L (6.3-8.2) g/dL Albumin 1.8 L (3.5-5.0) g/dL Microbiology - Last 24 Hours (Table) 09/05/24 14:30 Blood Culture - Final Blood Assessment and Plan Time with Patient: Less than 30
--- NOTE | 2024-09-11 17:17 | P.PN ---
Subjective Progress Note Date: 09/11/24 Patient is a 64-year-old male with past medical history significant for diabetes mellitus, chronic kidney disease, hyperlipidemia, hypertension, among other things. Patient is currently in the intensive care unit, he is a poor historian. Unable to provide reliable history. The ER provider did not contact me. Per the ER documentation, patient was found on the ground for an unknown known amount of time, last seen well 2 weeks prior by his sister. He was found to be in acute rhabdomyolysis with acute renal failure. He was also found with elevated blood sugars. CT of the brain and C-spine without contrast showing no acute intracranial process and no acute osseous abnormalities of the C-spine. Initial labs include a CBC: WBC count 17.3, hemoglobin 14.6, hematocrit 45.1, platelets 226. CMP: Sodium 136, potassium 5.7, chloride 95, serum bicarb 14, BUN 137, creatinine 8.82, glucose 578. Lactic 1.5. Magnesium 2.7. LFTs mildly elevated. Troponin 0.043. NT proBNP 4510. EKG: normal sinus rhythm, rate 88 bpm, incomplete RBB pattern, without obvious acute ischemic changes. Urine drug screen unremarkable. Serum ETOH < 10. Currently evaluating this patient in the intensive care unit. CPK was 7555 on arrival. Did receive 1.5 L normal saline bolus in in ED and started on normal saline at 130 ml/hr. Subsequently started on sodium bicarbonate infusion 3 A in D5W at 100 mL/h. urine output is in the order of 30 to 50 cc/h. Nephrology is managing. Repeat potassium is down to 4.7. On arrival blood glucose 578, serum bicarb 12, anion gap 27, acetone positive. Patient has also been started on insulin infusion Per protocol. He did develop some respiratory distress, breathing in the high 40s. I did ask for the pateint to be placed on BiPAP with settings 10/5 and FiO2 to be titrated a ppropriately. Chest x-ray showing cardiomegaly. There is a left midlung linear infiltrates concerning for atelectasis or early pneumonia. Patient does have bruising to his left lateral chest. It is painful to palpation without crepitus or subcutaneous emphysema. Patient was empirically started on antibiotics in the ED.Current vitals: 97.6 F, blood pressure 115/85 mmHg, heart rate 78 bpm, tachypneic breathing in the high 40s, SpO2 is 100% on BiPAP with settings 10/5 FiO2 100%. Prognosis is guarded. 09/06/24 - Patient seen at bedside this morning, remaining in the ICU, day 2 of hospitalization, admitted on 09/05/24 and in the ICU since that time. He was placed to mechanical ventilation with intubation yesterday (09/05/24). He is on assist-control with a rate of 20, volume 450, FiO2 40%, PEEP of 5. ABG this morning showed pO2 72, pCO2 34, pH 7.46, indicating respiratory alkalosis with relative hypoxemia. Initial improvement in his WBCs down to 13.6 (from 14.8) this morning, his hemoglobin decreased to 11.2. His BUN is 138, creatinine 7.61. Increase in AST, 3-4, and ALT, up to 113. Phosphorus 5.0, remaining 9, calcium 6.6, remaining well. Creatinine Kinase remains elevated, showing improvements, to 6149. His procalcitonin returned at > 100. His blood cultures were positive for Enterobacter cloacae without resistance noted, patient placed on cefepime - discontinued Rocephin and Zithromax. Patient remained Levophed at 0.09 mcg/kg/min (7.26 mcg/min) and propofol 40 mcg/kg/min. Blood pressure this morning 113/52. He will be started on vital HP 10 cc/h, with a goal being 37 cc/h. 09/07/24 - Patient seen at bedside today, remaining in the ICU, day 3 of [facility]. Admitted on 09/05/24 and in the ICU since that time. He has been intubated on mechanical ventilation since 09/05/24. He remains on assist- control with a rate of 20, volume 450, FiO2 50% and a PEEP of 8. ABG this morning showed pO2 59, pCO2 34, pH 7.46 which indicated respiratory alkalosis with some metabolic alkalosis - this was done while the patient was on an FiO2 of 40%. At that time, patient's FiO2 was up to 50% and his PEEP was increased to 8, since that time he has been saturating well. This morning his WBCs are 9.9, hemoglobin 10.1, platelet count 76, sodium 134, BUN 88, creatinine 4.68, calcium 6.4 and ionized calcium 3.7. Most recent creatinine kinase 2760. Because of the patient's relative hypocalcemia he received 1 g of calcium gluconate. The CVP has been slightly elevated since its insertion, at the time of insertion read ~9, however when seen the patient it was reading 6 indicated the patient is likely euvolemic. Patient remains on Levophed 0.01 mcg/kg/min (8 mcg/min), and on propofol 40 mcg/kg/min and vital HP at 30 cc/h (goal of 37 cc/h). He remains on cefepime and lactated ringer 100 cc/h. His urine was positive, preliminarily, for gram-negative bacilli. Preliminary results of blood culture showed Enterobacter cloacae and Serratia marcescens. 09/08/24 - Patient seen at bedside today, remaining in the ICU, day 4 of hospitalization. Admitted on 09/05/24 and in the ICU since that time. He has been intubated and mechanically ventilated since 09/05/24. He remains on assist-control with a rate of 20, volume 450, FiO2 50% and PEEP of 8. ABG done this morning showed pO2 60, pCO2 32, pH 7.45 indicating a respiratory alkalosis with some evidence of metabolic alkalosis. Patient uneventful overnight. WBCs 10.2, hemoglobin 9.4, sodium 133, BUN 63, creatinine 3.91, calcium 6.7. Patient CVP has been elevated, most recently at 12, indicating some possible hypervolemia. Patient allan on propofol 30 mcg/kg/min, Levophed 0.23 mcg/kg/min (~19 mcg/min), and cefepime. Patient's hemodialysis yesterday, 500 cc was removed. Per the hemodialysis nurse, patient's blood pressure dropped at the start of treatment, leading to pressors being increased at that time. Urine culture now final, positive for Enterobacter cloacae. Blood culture remains preliminary at this time for Enterobacter cloacae and Serratia marcescens. The patient is seen today September 09, 2024 in follow-up in the intensive care unit. He remains intubated on the mechanical ventilator and assist-control mode at a rate of 20, tidal volume 450, FiO2 50% and a PEEP of 8. Morning blood gases revealed a PaO2 of 86, pCO2 33 and a pH of 7.45. He is currently on norep inephrine at 27 mcg/min. Vasopressin at 0.03 units/min. Propofol at 30 mcg/kg/min. Lactated Ringer's at 10 mL/h. Receiving vital HP at 37 mL/h which is goal. He remains on cefepime for Enterobacter Cloacae in the urine. Enterobacter Cloacae and Serratia marcescens in the blood. Have a Tmax last night of 103.4. Currently 99.4. White count 13.5. Hemoglobin 9.6. Platelets 119. Sodium 133. Potassium 3.9. Bicarb 21. BUN 59. Creatinine 3.35. Glucose 245. He is continued on DuoNeb and elations. Heparin for DVT prophylaxis. Remains on Levemir and Lovenox sliding scale. He is currently in a +1.8 L balance. Chest x-ray shows persistent mild to moderate central vascular congestion bilaterally. He has been receiving hemodialysis. On 09/10/2024, the patient is being seen for a follow-up. Remains intubated on the mechanical ventilator. This morning, the patient is on propofol running at 30 mcg/kg/min. He is calm and comfortable and synchronous on mechanical ventilator. He is on assist-control mode of mechanical ventilation at rate of 20, tidal volume of 450, FiO2 of 50% with a PEEP of 5. His chest x-ray from today showing pulmonary vascular congestion and possibly some small bilateral pleural effusion. ET tube is around 4 cm above the nicol. No airspace disease or any consolidations noted. The pH is at 7.39 with a pCO2 of 34 and pO2 of 62. The patient is currently on pressors and is on norepinephrine running at 0.13 mcg/kg/min and he is also on vasopressin physiologic dose regarding his underlying gram-negative sepsis. Antibiotic coverage with IV cefepime for now. Afebrile, urine output is in the order of 5 cc an hour as the patient has developed an acute on top of chronic kidney injury and the fluid balance over the past 24 hours is +2.0 L. The patient is undergoing hemodialysis for now. Hemodialysis catheter is in the right femoral vein. His last hemodialysis session was on 09/09/2024 and another session of hemodialysis is to be done today. The patient blood work from today shows a WBC count of 11.3 with a hemoglobin of 9.7 and a platelet count of 116. Sodium is at 131, bicarb is at 18, potassium is at 4.4, BUN is 81 with a creatinine of 3.8. His liver function tests have improved including a drop in the AST and ALT. Alkaline phosphatase is also down to 218. Albumin is at 1.8 with a total protein of 4.4. As stated earlier, the cultures were positive for Enterobacter in his urine and blood. The blood also showed Serratia marcescens. His echocardiogram done during this current admission shows impaired LV function with an ejection fraction of 30% and there is global decrease in the contractility probably due to his underlying sepsis. He is receiving enteral feeding for nutritional support and is currently on THP vital HP vital HP at a rate of 37 cc an hour. IVF are KVO. On 09/11/2024, the patient is being seen in follow-up in the intensive care unit. The patient remains intubated on the mechanical ventilator. This morning, the patient is on propofol running at 50 mcg/kg/min. Earlier this morning, a blood gas was done as the patient was on a assist-control mode at a rate of 20 with a tidal volume of 450 and FiO2 of 50% with a PEEP of 8. The patient was found to be hypoxic with a pH of 7.41 with a pCO2 of 34 and pO2 54. The PEEP accordingly was brought up to 12. Current pulse ox is around 92 to 93%. The patient is still having episodes of fever. Remains septic and the patient remains on pressors and the patient is currently on norepinephrine running with 0.13 mcg/kg/min and vasopressin at 0.03 units. The patient is on IV cefepime. A CAT scan of the abdomen and pelvis was done yesterday and the patient was found to have consolidation in lung bases bilaterally consistent with pneumonia. Based on that, I recommended broadening his antibiotic coverage. Noted the patient was also supposed to undergo hemodialysis yesterday. He did have a problem with his hemodialysis catheter and the dial ysis was not successful. Based on that, the catheter was exchanged and the patient was given another dialysis catheter in his left femoral vein today. Hemodialysis to follow today. The patient remains on vital high-protein for enteral feeding and titrate support at rate of 48 cc an hour. Meanwhile, he is white cell count of 12.6 with a hemoglobin 8.9 and platelet count of 155. BUN is 92 with a creatinine of 4.5 and a sodium levels at 1 of 32 and a potassium level is at 4.4. Serum bicarb is 18. Calcium level is at 7.1. LFTs are within normal limits. Sputum samples were sent for culture. Antibiotic modification was done and the patient was taken off the cefepime and the patient was started on a combination of IV Invanz and Vanco mycin. The patient remains on amiodarone 200 mg p.o. twice a day. The patient is on DuoNeb nebulized treatments [id number]. He is receiving Levemir insulin 20 units twice daily and NovoLog sliding scale coverage. Objective - Vital Signs Vital signs: Vital Signs Temp 99.6 F 09/11/24 08:00 Pulse 81 09/11/24 09:00 Resp 33 H 09/11/24 09:00 BP 125/47 09/10/24 14:05 Pulse Ox 91 L 09/11/24 09:00 FiO2 50 09/11/24 09:00 Intake & Output 09/10/24 09/11/24 09/11/24 18:59 06:59 18:59 Intake Total 7241.406 4395.880 351.631 Output Total 550 48 15 Balance 6533.815 7104.880 336.631 Weight 87.4 kg 90.6 kg Intake: IV 214 192 48 A Line 54 72 18 Cefepime 1 gm In Sodium 50 Chloride 0.9% 50 ml @ 12. 5 mls/hr IVPB DAILY [facility] Rx#:[id number] LR 110 120 30 Intake, IV Titration 494.398 600.880 129.631 Amount Norepinephrine 8 mg In 162.527 390.442 42.631 Sodium Chloride 0.9% 250 ml @ 0.03 MCG/KG/MIN 4. 737 mls/hr IV .Q24H [facility] Rx#:[id number] Vasopressin 60 unit In 122.171 Sodium Chloride 0.9% 150 ml @ 0.03 UNITS/MIN 4.59 mls/hr IV .Q24H [facility] Rx#: [id number] propofoL 1,000 mg In 209.700 210.438 87 Empty Bag 1 bag @ 15 MCG/ KG/MIN 6.75 mls/hr IV . [id number] [facility] Rx#:[id number] Tube Feeding 484 576 144 Hemodialysis 500 Other 30 30 Output: Urine 50 48 15 Hemodialysis 0 Hemodialysis Net Amount 500 Other: Voiding Method Indwelling Catheter Indwelling Catheter Indwelling Catheter ABP, PAP, CO, CI - Last Documented Arterial Blood Pressure 117/47 - Exam GENERAL EXAM: Intubated, sedated 64-year-old male patient on the mechanical ventilator, in no apparent distress. Calm and comfortable, sedated on propofol HEAD: Normocephalic. EYES: Normal reaction of pupils, equal size. NOSE: Clear with pink turbinates. THROAT: Oral endotracheal and gastric tube secured in place. No erythema or exudates. NECK: No masses, no JVD.left IJ tripple lumen and tight radial art line and a right femeral HD cath. CHEST: No chest wall deformity. LUNGS: Equal air entry with coarse scattered rhonchi. CVS: Distant heart tones. S1 and S2 normal with no audible murmur, regular rhythm. ABDOMEN: No hepatosplenomegaly, normal bowel sounds, no guarding or rigidity. SPINE: No scoliosis or deformity SKIN: No rashes CENTRAL NERVOUS SYSTEM: No focal deficits, tone is normal in all 4 extremities. EXTREMITIES: There is 1+ peripheral edema. No clubbing, no cyanosis. Peripheral pulses are intact. - Labs CBC & Chem 7: 09/11/24 05:20 09/11/24 05:20 Labs: Abnormal Lab Results - Last 24 Hours (Table) 09/10/24 09/10/24 09/10/24 Range/Units 03:40 12:33 17:53 WBC (3.8-10.6) k/uL RBC (4.30-5.90) m/uL Hgb (13.0-17.5) gm/dL Hct (39.0-53.0) % ABG pCO2 (35-45) mmHg ABG pO2 (83-108) mmHg ABG O2 Saturation (94-97) % Hemoglobin (13.0-17.5) gm/dL Sodium (137-145) mmol/L Carbon Dioxide (22-30) mmol/L BUN (9-20) mg/dL Creatinine (0.66-1.25) mg/dL Glucose (74-99) mg/dL POC Glucose (mg/dL) 255 H 247 H (70-110) mg/dL Calcium (8.4-10.2) mg/dL Total Bilirubin (0.2-1.3) mg/dL Alkaline Phosphatase (38-126) U/L Creatine Kinase 680 H (55-170) U/L Total Protein (6.3-8.2) g/dL Albumin (3.5-5.0) g/dL 09/10/24 09/10/24 09/11/24 Range/Units 17:59 23:26 05:20 WBC 12.6 H (3.8-10.6) k/uL RBC 2.91 L (4.30-5.90) m/uL Hgb 8.9 L (13.0-17.5) gm/dL Hct 26.2 L (39.0-53.0) % ABG pCO2 (35-45) mmHg ABG pO2 (83-108) mmHg ABG O2 Saturation (94-97) % Hemoglobin (13.0-17.5) gm/dL Sodium (137-145) mmol/L Carbon Dioxide (22-30) mmol/L BUN (9-20) mg/dL Creatinine (0.66-1.25) mg/dL Glucose (74-99) mg/dL POC Glucose (mg/dL) 237 H 209 H (70-110) mg/dL Calcium (8.4-10.2) mg/dL Total Bilirubin (0.2-1.3) mg/dL Alkaline Phosphatase (38-126) U/L Creatine Kinase (55-170) U/L Total Protein (6.3-8.2) g/dL Albumin (3.5-5.0) g/dL 09/11/24 09/11/24 09/11/24 Range/Units 05:20 05:22 05:31 WBC (3.8-10.6) k/uL RBC (4.30-5.90) m/uL Hgb (13.0-17.5) gm/dL Hct (39.0-53.0) % ABG pCO2 34 L (35-45) mmHg ABG pO2 54 L* (83-108) mmHg ABG O2 Saturation 88.1 L (94-97) % Hemoglobin 8.7 L (13.0-17.5) gm/dL Sodium 132 L (137-145) mmol/L Carbon Dioxide 18 L (22-30) mmol/L BUN 92 H (9-20) mg/dL Creatinine 4.53 H (0.66-1.25) mg/dL Glucose 161 H (74-99) mg/dL POC Glucose (mg/dL) 173 H (70-110) mg/dL Calcium 7.1 L (8.4-10.2) mg/dL Total Bilirubin 5.7 H (0.2-1.3) mg/dL Alkaline Phosphatase 187 H (38-126) U/L Creatine Kinase (55-170) U/L Total Protein 4.7 L (6.3-8.2) g/dL Albumin 1.8 L (3.5-5.0) g/dL Microbiology - Last 24 Hours (Table) 09/05/24 14:30 Blood Culture - Final Blood Assessment and Plan Plan: Acute hypoxic respiratory failure, requiring mechanical ventilation and intubation on 09/05/24. Respiratory failure is multifactorial. The patient presented with significant metabolic derangements, acute on top of chronic renal failure, sepsis and decompensated heart failure. Remains intubated on mechanical ventilator and the chest x-ray is consistent with CHF.Repeat chest x- ray from today shows stable findings with scattered infiltrates that are unchang ed. On 09/11/2024, there is no interval worsening in the patient's oxygenation and the patient has developed bilateral lower lobe consolidation as evident on the CAT scan of the abdomen. Suspect ongoing pneumonia or a hospital-acquired pneumonia. Sputum samples will be collected and antibiotics to be modified accordingly. Episodes of fever Acute rhabdomyolysis, resolved, and the CPK levels have been downtrending Acute on top of chronic kidney disease. The patient is known to have stage 3 chronic kidney disease and the patient developed an acute kidney injury/ATN, currently on hemodialysis, femoral hemodialysis catheter was placed on the left femoral vein and dialysis is to follow Systolic heart failure with an ejection fraction of 30% Elevated troponins, in setting of acute renal failure Sepsis, secondary to urinary tract infection. Noted Enterobacter cloacae was cultured in the urine and the blood and the blood culture is also positive for Serratia marcescens. The patient i was receiving IV cefepime patient remains on a combination of norepinephrine and vasopressin for hemodynamic support. Fever secondary to sepsis, currently afebrile Leukocytosis secondary to above, improving Hypertension Mechanical fall, is on home 2 weeks prior Hyperkalemia, resolved Anion gap metabolic acidosis, resolved Hyperphosphatemia, improving Hypocalcemia likely secondary to decreased albumin History of hypertension Hyperlipidemia diabetes mellitus type 2 Hx of frequent UTIs Plan: Continue ventilator support, the PEEP has been brought up to 12 Chest x-ray was noted and the findings are essentially stable Stop IV cefepime and switch the patient on a combination of IV Invanz and vancomycin titrate down the pressors as tolerated to keep the mean arterial pressure above 65, currently on norepinephrine CAT scan of the abdomen and pelvis was noted Continue Levemir insulin 20 units twice daily along with a sliding scale coverage Amiodarone 200 mg p.o. twice a day Dilaudid for pain control Continue bronchodilators Heparin for DVT prophylaxis Continue hemodialysis per nephrology, hemodialysis to be done today Enteral feeding for nutritional support and the patient is currently on vital HP We will continue to follow and make further recommendations based on his clinical status Evaluation was done more than 30 minutes and this is a critical care evaluation Time with Patient: Greater than 30
[2024-09-11 18:13] LABS: Glucose,Whole Blood 138 mg/dL (70-110)
[2024-09-11 22:58] LABS: Glucose,Whole Blood 214 mg/dL (70-110)
[2024-09-12 05:19] LABS: ABG Base Excess 1.5 mmol/L; ABG HCO3 25 mmol/L (21-25); ABG Oxygen Saturation 97.1 % (94-97); ABG PCO2 34 mmHg (35-45); ABG PH 7.47 (7.35-7.45); ABG PO2 81 mmHg (83-108); ABG TCO2 26 mmol/L (19-24); Allen Test Performed? Yes
[2024-09-12 05:24] LABS: Basophils % (A) 0 %; Eosinophils # (A) 0.1 k/uL (0-0.7); Eosinophils % (A) 1 %; HCT 24.7 % (39.0-53.0); HGB 8.4 gm/dL (13.0-17.5); Lymphocytes # (A) 0.7 k/uL (1.0-4.8); Lymphocytes % (A) 6 %; MCH 30.5 pg (25.0-35.0); MCHC 34.2 g/dL (31.0-37.0); MCV 89.4 fL (80.0-100.0); Mean Platelet Volume 10.2; Monocytes # (A) 0.4 k/uL (0-1.0); Monocytes % (A) 3 %; Neutrophils # (A) 9.4 k/uL (1.3-7.7); Neutrophils % (A) 86 %; Platelet Count 164 k/uL (150-450); RBC 2.77 m/uL (4.30-5.90); RDW 15.3 % (11.5-15.5)
[2024-09-12 05:26] LABS: Glucose,Whole Blood 271 mg/dL (70-110)
[2024-09-12 06:07] LABS: African American GFR (CKD) 19 (>60 ml/min/1.73 sqM); Anion Gap 8 mmol/L; Blood Urea Nitrogen 63 mg/dL (9-20); Calcium 7.1 mg/dL (8.4-10.2); Carbon Dioxide 23 mmol/L (22-30); Chloride 97 mmol/L (98-107); Glucose 227 mg/dL (74-99); Non-African American GFR(CKD) 17 (>60 ml/min/1.73 sqM); Potassium 4.2 mmol/L (3.5-5.1); Sodium 128 mmol/L (137-145)
--- NOTE | 2024-09-12 07:45 | XR ---
EXAMINATION TYPE: XR chest 1V portable DATE OF EXAM: 09/12/2024 3:40 AM COMPARISON: 09/11/2024 CLINICAL INDICATION: Male, 64 years old with history of mechanical ventilation, FINDINGS: Indwelling tubes and catheters are unchanged. Increasing perihilar and basilar infiltrates may reflect underlying pneumonia. Correlate clinically a nd progress studies are recommended. Stable appearance of the cardio-mediastinal structures at this time. IMPRESSION: 1. Increasing perihilar and basilar infiltrates may reflect underlying pneumonia. Correlate clinical ly and progress studies are recommended. [facility], , 09/12/2024 7:43 AM
[2024-09-12] MEDS: VANCOMYCIN 1,500 MG in SODIUM CHLORIDE 0.9% 500 ML 500 ML IVPB ONE (08:10)
--- NOTE | 2024-09-12 10:02 | P.PN ---
Subjective Patient is seen in follow-up for acute kidney injury on chronic kidney disease. Started on hemodialysis September 06, 2024 via right femoral catheter. Catheter was not functioning yesterday and new catheter was placed September 11, 2024. On Levophed and vasopressin. Oliguric. Intubated. Tolerated 1 L ultrafiltration yesterday. Vital signs are stable. On vasopressor support. General: Resting in bed. HEENT: Intubated. LUNGS: Scattered rhonchi. HEART: Rate and Rhythm are regular. ABDOMEN: No distention. EXTREMITITES: Trace edema. Scrotal edema noted. Objective - Vital Signs Vital signs: Vital Signs Temp 101.6 F H 09/12/24 08:00 Pulse 86 09/12/24 08:15 Resp 23 09/12/24 08:15 BP 166/58 09/11/24 16:57 Pulse Ox 100 09/12/24 08:15 FiO2 55 09/12/24 08:00 Intake & Output 09/11/24 09/12/24 09/12/24 18:59 06:59 18:59 Intake Total 2351.368 1044.020 773.488 Output Total 2560 550 10 Balance -208.632 494.020 763.488 Weight 90.6 kg 90.3 kg Intake: IV 192 208 522 A Line 72 78 12 LR 120 130 10 Vancomycin 1,500 mg In 500 Sodium Chloride 0.9% 500 ml 500 ml @ 167 mls/hr IVPB ONCE ONE Rx#: [id number] Intake, IV Titration 1137.368 416.020 121.488 Amount Norepinephrine 8 mg In 256.841 162.270 32.238 Sodium Chloride 0.9% 250 ml @ 0.03 MCG/KG/MIN 4. 737 mls/hr IV .Q24H [facility] Rx#:[id number] Vancomycin 1,500 mg In 500 Sodium Chloride 0.9% 500 ml 500 ml @ 167 mls/hr IVPB ONCE ONE Rx#: [id number] Vasopressin 60 unit In 128.902 Sodium Chloride 0.9% 150 ml @ 0.03 UNITS/MIN 4.59 mls/hr IV .Q24H [facility] Rx#: [id number] propofoL 1,000 mg In 251.625 253.75 89.25 Empty Bag 1 bag @ 15 MCG/ KG/MIN 6.75 mls/hr IV . [id number] [facility] Rx#:[id number] Tube Feeding 432 330 70 Hemodialysis 500 Other 90 90 60 Output: Urine 60 50 10 Stool 500 Hemodialysis 1500 Hemodialysis Net Amount 1000 Other: Voiding Method Indwelling Catheter Indwelling Catheter # Bowel Movements 1 ABP, PAP, CO, CI - Last Documented Arterial Blood Pressure 124/50 - Labs CBC & Chem 7: 09/12/24 06:00 09/12/24 06:00 Labs: Abnormal Lab Results - Last 24 Hours (Table) 09/11/24 09/11/24 09/11/24 Range/Units 11:16 18:11 22:57 WBC (3.8-10.6) k/uL RBC (4.30-5.90) m/uL Hgb (13.0-17.5) gm/dL Hct (39.0-53.0) % Neutrophils # (1.3-7.7) k/uL Lymphocytes # (1.0-4.8) k/uL ABG pH (7.35-7.45) ABG pCO2 (35-45) mmHg ABG pO2 (83-108) mmHg ABG Total CO2 (19-24) mmol/L ABG O2 Saturation (94-97) % Hemoglobin (13.0-17.5) gm/dL Sodium (137-145) mmol/L Chloride (98-107) mmol/L BUN (9-20) mg/dL Creatinine (0.66-1.25) mg/dL Glucose (74-99) mg/dL POC Glucose (mg/dL) 196 H 138 H 214 H (70-110) mg/dL Calcium (8.4-10.2) mg/dL 09/12/24 09/12/24 09/12/24 Range/Units 05:19 05:26 06:00 WBC (3.8-10.6) k/uL RBC (4.30-5.90) m/uL Hgb (13.0-17.5) gm/dL Hct (39.0-53.0) % Neutrophils # (1.3-7.7) k/uL Lymphocytes # (1.0-4.8) k/uL ABG pH 7.47 H (7.35-7.45) ABG pCO2 34 L (35-45) mmHg ABG pO2 81 L (83-108) mmHg ABG Total CO2 26 H (19-24) mmol/L ABG O2 Saturation 97.1 H (94-97) % Hemoglobin 8.0 L (13.0-17.5) gm/dL Sodium 128 L (137-145) mmol/L Chloride 97 L (98-107) mmol/L BUN 63 H (9-20) mg/dL Creatinine 3.58 H (0.66-1.25) mg/dL Glucose 227 H (74-99) mg/dL POC Glucose (mg/dL) 271 H (70-110) mg/dL Calcium 7.1 L (8.4-10.2) mg/dL 09/12/24 Range/Units 06:00 WBC 11.0 H (3.8-10.6) k/uL RBC 2.77 L (4.30-5.90) m/uL Hgb 8.4 L (13.0-17.5) gm/dL Hct 24.7 L (39.0-53.0) % Neutrophils # 9.4 H (1.3-7.7) k/uL Lymphocytes # 0.7 L (1.0-4.8) k/uL ABG pH (7.35-7.45) ABG pCO2 (35-45) mmHg ABG pO2 (83-108) mmHg ABG Total CO2 (19-24) mmol/L ABG O2 Saturation (94-97) % Hemoglobin (13.0-17.5) gm/dL Sodium (137-145) mmol/L Chloride (98-107) mmol/L BUN (9-20) mg/dL Creatinine (0.66-1.25) mg/dL Glucose (74-99) mg/dL POC Glucose (mg/dL) (70-110) mg/dL Calcium (8.4-10.2) mg/dL Microbiology - Last 24 Hours (Table) 09/11/24 10:45 Gram Stain - Preliminary Sputum 09/04/24 17:04 Blood Culture Gram Stain - Final Blood Blood Culture - Final Enterobacter cloacae Complex Serratia marcescens Molecular ID Assessment and Plan Plan: Assessment: 1. Acute kidney injury secondary to ATN secondary to septic shock. Oliguric. No hydronephrosis noted on imaging. Started on hemodialysis September 06, 2024 via right femoral catheter; left femoral catheter was placed September 11, 2024. 2. Chronic kidney disease stage IIIb with baseline creatinine 1.8-2 secondary to diabetic kidney disease. 3. Septic shock with blood cultures positive for Enterobacter and Serratia and urine culture positive for Enterobacter. On antibiotics. 4. Metabolic acidosis secondary to acute kidney injury. 5. Diabetes mellitus. 6. Rhabdomyolysis. CK levels trending down. CK level 680 dated September 10, 2024. 7. Acute hypoxic respiratory failure. Intubated. 8. History of right renal mass not clearly seen on ultrasound this admission. Will need to see urology outpatient. 9. Volume overload. 10. Hypervolemic hyponatremia. 11. Anemia of chronic kidney disease. Plan: Daily dialysis for now due to volume overload. No response in urine output status post IV Lasix given September 11, 2024. Maintain tube feeds. Add Aranesp. Wean FiO2 and vasopressors. Continue to monitor renal function and urine output. Phosphorus level 4.0 dated September 12, 2024.
[2024-09-12] MEDS: DARBEPOETIN ALFA 40 MCG/0.4 ML SYRINGE SQ SCH (11:52)
[2024-09-12 12:00] LABS: Glucose,Whole Blood 177 mg/dL (70-110)
--- NOTE | 2024-09-12 13:47 | P.PN ---
Subjective Progress Note Date: 09/12/24 Principal diagnosis: Acute kidney injury requiring hemodialysis Patient is seen and examined today as a follow-up for acute kidney injury requiring hemodialysis. Yesterday patient underwent temporary left femoral vein HD catheter placement. He underwent dialysis yesterday without any complications. Right groin catheter removed. No bleeding or hematoma noted. Objective - Vital Signs Vital signs: Vital Signs Temp 101.5 F H 09/12/24 04:00 Pulse 89 09/12/24 07:00 Resp 31 H 09/12/24 07:00 BP 166/58 09/11/24 16:57 Pulse Ox 100 09/12/24 07:00 FiO2 55 09/12/24 04:00 Intake & Output 09/11/24 09/12/24 09/12/24 18:59 06:59 18:59 Intake Total 2351.368 1044.020 Output Total 2560 550 Balance -208.632 494.020 Weight 90.6 kg 90.3 kg Intake: IV 192 208 A Line 72 78 LR 120 130 Intake, IV Titration 1137.368 416.020 Amount Norepinephrine 8 mg In 256.841 162.270 Sodium Chloride 0.9% 250 ml @ 0.03 MCG/KG/MIN 4. 737 mls/hr IV .Q24H [facility] Rx#:[id number] Vancomycin 1,500 mg In 500 Sodium Chloride 0.9% 500 ml 500 ml @ 167 mls/hr IVPB ONCE ONE Rx#: [id number] Vasopressin 60 unit In 128.902 Sodium Chloride 0.9% 150 ml @ 0.03 UNITS/MIN 4.59 mls/hr IV .Q24H [facility] Rx#: [id number] propofoL 1,000 mg In 251.625 253.75 Empty Bag 1 bag @ 15 MCG/ KG/MIN 6.75 mls/hr IV . [id number] [facility] Rx#:[id number] Tube Feeding 432 330 Hemodialysis 500 Other 90 90 Output: Urine 60 50 Stool 500 Hemodialysis 1500 Hemodialysis Net Amount 1000 Other: Voiding Method Indwelling Catheter Indwelling Catheter # Bowel Movements 1 ABP, PAP, CO, CI - Last Documented Arterial Blood Pressure 111/44 - Exam General appearance: The patient is sedated and intubated HET: Head is normocephalic and atraumatic. Neck: Supple. Heart: Regular. Lungs: Equal expansion, on mechanical ventilation. Abdomen: Soft, nondistended. Extremities: Normal skin color and turgor. Right groin with dressing clean dry and intact, no hematoma or bleeding noted. Left groin with temporary HD catheter with dressing, clean dry and intact. Neurological: Sedated and intubated. - Labs CBC & Chem 7: 09/12/24 06:00 09/12/24 06:00 Labs: Abnormal Lab Results - Last 24 Hours (Table) 09/11/24 09/11/24 09/11/24 Range/Units 11:16 18:11 22:57 WBC (3.8-10.6) k/uL RBC (4.30-5.90) m/uL Hgb (13.0-17.5) gm/dL Hct (39.0-53.0) % Neutrophils # (1.3-7.7) k/uL Lymphocytes # (1.0-4.8) k/uL ABG pH (7.35-7.45) ABG pCO2 (35-45) mmHg ABG pO2 (83-108) mmHg ABG Total CO2 (19-24) mmol/L ABG O2 Saturation (94-97) % Hemoglobin (13.0-17.5) gm/dL Sodium (137-145) mmol/L Chloride (98-107) mmol/L BUN (9-20) mg/dL Creatinine (0.66-1.25) mg/dL Glucose (74-99) mg/dL POC Glucose (mg/dL) 196 H 138 H 214 H (70-110) mg/dL Calcium (8.4-10.2) mg/dL 09/12/24 09/12/24 09/12/24 Range/Units 05:19 05:26 06:00 WBC (3.8-10.6) k/uL RBC (4.30-5.90) m/uL Hgb (13.0-17.5) gm/dL Hct (39.0-53.0) % Neutrophils # (1.3-7.7) k/uL Lymphocytes # (1.0-4.8) k/uL ABG pH 7.47 H (7.35-7.45) ABG pCO2 34 L (35-45) mmHg ABG pO2 81 L (83-108) mmHg ABG Total CO2 26 H (19-24) mmol/L ABG O2 Saturation 97.1 H (94-97) % Hemoglobin 8.0 L (13.0-17.5) gm/dL Sodium 128 L (137-145) mmol/L Chloride 97 L (98-107) mmol/L BUN 63 H (9-20) mg/dL Creatinine 3.58 H (0.66-1.25) mg/dL Glucose 227 H (74-99) mg/dL POC Glucose (mg/dL) 271 H (70-110) mg/dL Calcium 7.1 L (8.4-10.2) mg/dL 09/12/24 Range/Units 06:00 WBC 11.0 H (3.8-10.6) k/uL RBC 2.77 L (4.30-5.90) m/uL Hgb 8.4 L (13.0-17.5) gm/dL Hct 24.7 L (39.0-53.0) % Neutrophils # 9.4 H (1.3-7.7) k/uL Lymphocytes # 0.7 L (1.0-4.8) k/uL ABG pH (7.35-7.45) ABG pCO2 (35-45) mmHg ABG pO2 (83-108) mmHg ABG Total CO2 (19-24) mmol/L ABG O2 Saturation (94-97) % Hemoglobin (13.0-17.5) gm/dL Sodium (137-145) mmol/L Chloride (98-107) mmol/L BUN (9-20) mg/dL Creatinine (0.66-1.25) mg/dL Glucose (74-99) mg/dL POC Glucose (mg/dL) (70-110) mg/dL Calcium (8.4-10.2) mg/dL Microbiology - Last 24 Hours (Table) 09/11/24 10:45 Gram Stain - Preliminary Sputum 09/04/24 17:04 Blood Culture Gram Stain - Final Blood Blood Culture - Final Enterobacter cloacae Complex Serratia marcescens Molecular ID Assessment and Plan Assessment: 1. Acute kidney injury requiring hemodialysis status post temporary HD catheter placement 2. Malfunctioning temporary HD catheter status post replacement 3. Altered mental status changes 4. Rhabdomyolysis 5. Positive UTI 6. Bacteremia Plan: 1. Hemodialysis per recommendations from nephrology 2. Rest of medical management per primary medical team Thank you for this consultation, we will be on standby. Please call us back if patient should need permacath placement. The impression and plan of care has been dictated as directed. Dr. Santiago I performed a history and examination of this patient, discussed the same with the dictator. I agree with the dictator's note ,documented as a scribe. Any additional findings or plans will be noted.
--- NOTE | 2024-09-12 15:32 | P.PN ---
Subjective Progress Note Date: 09/12/24 Patient is a 64-year-old male with past medical history significant for diabetes mellitus, chronic kidney disease, hyperlipidemia, hypertension, among other things. Patient is currently in the intensive care unit, he is a poor historian. Unable to provide reliable history. The ER provider did not contact me. Per the ER documentation, patient was found on the ground for an unknown known amount of time, last seen well 2 weeks prior by his sister. He was found to be in acute rhabdomyolysis with acute renal failure. He was also found with elevated blood sugars. CT of the brain and C-spine without contrast showing no acute intracranial process and no acute osseous abnormalities of the C-spine. Initial labs include a CBC: WBC count 17.3, hemoglobin 14.6, hematocrit 45.1, platelets 226. CMP: Sodium 136, potassium 5.7, chloride 95, serum bicarb 14, BUN 137, creatinine 8.82, glucose 578. Lactic 1.5. Magnesium 2.7. LFTs mildly elevated. Troponin 0.043. NT proBNP 4510. EKG: normal sinus rhythm, rate 88 bpm, incomplete RBB pattern, without obvious acute ischemic changes. Urine drug screen unremarkable. Serum ETOH < 10. Currently evaluating this patient in the intensive care unit. CPK was 7555 on arrival. Did receive 1.5 L normal saline bolus in in ED and started on normal saline at 130 ml/hr. Subsequently started on sodium bicarbonate infusion 3 A in D5W at 100 mL/h. urine output is in the order of 30 to 50 cc/h. Nephrology is managing. Repeat potassium is down to 4.7. On arrival blood glucose 578, serum bicarb 12, anion gap 27, acetone positive. Patient has also been started on insulin infusion Per protocol. He did develop some respiratory distress, breathing in the high 40s. I did ask for the pateint to be placed on BiPAP with settings 10/5 and FiO2 to be titrated a ppropriately. Chest x-ray showing cardiomegaly. There is a left midlung linear infiltrates concerning for atelectasis or early pneumonia. Patient does have bruising to his left lateral chest. It is painful to palpation without crepitus or subcutaneous emphysema. Patient was empirically started on antibiotics in the ED.Current vitals: 97.6 F, blood pressure 115/85 mmHg, heart rate 78 bpm, tachypneic breathing in the high 40s, SpO2 is 100% on BiPAP with settings 10/5 FiO2 100%. Prognosis is guarded. 09/06/24 - Patient seen at bedside this morning, remaining in the ICU, day 2 of hospitalization, admitted on 09/05/24 and in the ICU since that time. He was placed to mechanical ventilation with intubation yesterday (09/05/24). He is on assist-control with a rate of 20, volume 450, FiO2 40%, PEEP of 5. ABG this morning showed pO2 72, pCO2 34, pH 7.46, indicating respiratory alkalosis with relative hypoxemia. Initial improvement in his WBCs down to 13.6 (from 14.8) this morning, his hemoglobin decreased to 11.2. His BUN is 138, creatinine 7.61. Increase in AST, 3-4, and ALT, up to 113. Phosphorus 5.0, remaining 9, calcium 6.6, remaining well. Creatinine Kinase remains elevated, showing improvements, to 6149. His procalcitonin returned at > 100. His blood cultures were positive for Enterobacter cloacae without resistance noted, patient placed on cefepime - discontinued Rocephin and Zithromax. Patient remained Levophed at 0.09 mcg/kg/min (7.26 mcg/min) and propofol 40 mcg/kg/min. Blood pressure this morning 113/52. He will be started on vital HP 10 cc/h, with a goal being 37 cc/h. 09/07/24 - Patient seen at bedside today, remaining in the ICU, day 3 of [facility]. Admitted on 09/05/24 and in the ICU since that time. He has been intubated on mechanical ventilation since 09/05/24. He remains on assist- control with a rate of 20, volume 450, FiO2 50% and a PEEP of 8. ABG this morning showed pO2 59, pCO2 34, pH 7.46 which indicated respiratory alkalosis with some metabolic alkalosis - this was done while the patient was on an FiO2 of 40%. At that time, patient's FiO2 was up to 50% and his PEEP was increased to 8, since that time he has been saturating well. This morning his WBCs are 9.9, hemoglobin 10.1, platelet count 76, sodium 134, BUN 88, creatinine 4.68, calcium 6.4 and ionized calcium 3.7. Most recent creatinine kinase 2760. Because of the patient's relative hypocalcemia he received 1 g of calcium gluconate. The CVP has been slightly elevated since its insertion, at the time of insertion read ~9, however when seen the patient it was reading 6 indicated the patient is likely euvolemic. Patient remains on Levophed 0.01 mcg/kg/min (8 mcg/min), and on propofol 40 mcg/kg/min and vital HP at 30 cc/h (goal of 37 cc/h). He remains on cefepime and lactated ringer 100 cc/h. His urine was positive, preliminarily, for gram-negative bacilli. Preliminary results of blood culture showed Enterobacter cloacae and Serratia marcescens. 09/08/24 - Patient seen at bedside today, remaining in the ICU, day 4 of hospitalization. Admitted on 09/05/24 and in the ICU since that time. He has been intubated and mechanically ventilated since 09/05/24. He remains on assist-control with a rate of 20, volume 450, FiO2 50% and PEEP of 8. ABG done this morning showed pO2 60, pCO2 32, pH 7.45 indicating a respiratory alkalosis with some evidence of metabolic alkalosis. Patient uneventful overnight. WBCs 10.2, hemoglobin 9.4, sodium 133, BUN 63, creatinine 3.91, calcium 6.7. Patient CVP has been elevated, most recently at 12, indicating some possible hypervolemia. Patient allan on propofol 30 mcg/kg/min, Levophed 0.23 mcg/kg/min (~19 mcg/min), and cefepime. Patient's hemodialysis yesterday, 500 cc was removed. Per the hemodialysis nurse, patient's blood pressure dropped at the start of treatment, leading to pressors being increased at that time. Urine culture now final, positive for Enterobacter cloacae. Blood culture remains preliminary at this time for Enterobacter cloacae and Serratia marcescens. The patient is seen today September 09, 2024 in follow-up in the intensive care unit. He remains intubated on the mechanical ventilator and assist-control mode at a rate of 20, tidal volume 450, FiO2 50% and a PEEP of 8. Morning blood gases revealed a PaO2 of 86, pCO2 33 and a pH of 7.45. He is currently on norep inephrine at 27 mcg/min. Vasopressin at 0.03 units/min. Propofol at 30 mcg/kg/min. Lactated Ringer's at 10 mL/h. Receiving vital HP at 37 mL/h which is goal. He remains on cefepime for Enterobacter Cloacae in the urine. Enterobacter Cloacae and Serratia marcescens in the blood. Have a Tmax last night of 103.4. Currently 99.4. White count 13.5. Hemoglobin 9.6. Platelets 119. Sodium 133. Potassium 3.9. Bicarb 21. BUN 59. Creatinine 3.35. Glucose 245. He is continued on DuoNeb and elations. Heparin for DVT prophylaxis. Remains on Levemir and Lovenox sliding scale. He is currently in a +1.8 L balance. Chest x-ray shows persistent mild to moderate central vascular congestion bilaterally. He has been receiving hemodialysis. On 09/10/2024, the patient is being seen for a follow-up. Remains intubated on the mechanical ventilator. This morning, the patient is on propofol running at 30 mcg/kg/min. He is calm and comfortable and synchronous on mechanical ventilator. He is on assist-control mode of mechanical ventilation at rate of 20, tidal volume of 450, FiO2 of 50% with a PEEP of 5. His chest x-ray from today showing pulmonary vascular congestion and possibly some small bilateral pleural effusion. ET tube is around 4 cm above the nicol. No airspace disease or any consolidations noted. The pH is at 7.39 with a pCO2 of 34 and pO2 of 62. The patient is currently on pressors and is on norepinephrine running at 0.13 mcg/kg/min and he is also on vasopressin physiologic dose regarding his underlying gram-negative sepsis. Antibiotic coverage with IV cefepime for now. Afebrile, urine output is in the order of 5 cc an hour as the patient has developed an acute on top of chronic kidney injury and the fluid balance over the past 24 hours is +2.0 L. The patient is undergoing hemodialysis for now. Hemodialysis catheter is in the right femoral vein. His last hemodialysis session was on 09/09/2024 and another session of hemodialysis is to be done today. The patient blood work from today shows a WBC count of 11.3 with a hemoglobin of 9.7 and a platelet count of 116. Sodium is at 131, bicarb is at 18, potassium is at 4.4, BUN is 81 with a creatinine of 3.8. His liver function tests have improved including a drop in the AST and ALT. Alkaline phosphatase is also down to 218. Albumin is at 1.8 with a total protein of 4.4. As stated earlier, the cultures were positive for Enterobacter in his urine and blood. The blood also showed Serratia marcescens. His echocardiogram done during this current admission shows impaired LV function with an ejection fraction of 30% and there is global decrease in the contractility probably due to his underlying sepsis. He is receiving enteral feeding for nutritional support and is currently on THP vital HP vital HP at a rate of 37 cc an hour. IVF are KVO. On 09/11/2024, the patient is being seen in follow-up in the intensive care unit. The patient remains intubated on the mechanical ventilator. This morning, the patient is on propofol running at 50 mcg/kg/min. Earlier this morning, a blood gas was done as the patient was on a assist-control mode at a rate of 20 with a tidal volume of 450 and FiO2 of 50% with a PEEP of 8. The patient was found to be hypoxic with a pH of 7.41 with a pCO2 of 34 and pO2 54. The PEEP accordingly was brought up to 12. Current pulse ox is around 92 to 93%. The patient is still having episodes of fever. Remains septic and the patient remains on pressors and the patient is currently on norepinephrine running with 0.13 mcg/kg/min and vasopressin at 0.03 units. The patient is on IV cefepime. A CAT scan of the abdomen and pelvis was done yesterday and the patient was found to have consolidation in lung bases bilaterally consistent with pneumonia. Based on that, I recommended broadening his antibiotic coverage. Noted the patient was also supposed to undergo hemodialysis yesterday. He did have a problem with his hemodialysis catheter and the dial ysis was not successful. Based on that, the catheter was exchanged and the patient was given another dialysis catheter in his left femoral vein today. Hemodialysis to follow today. The patient remains on vital high-protein for enteral feeding and titrate support at rate of 48 cc an hour. Meanwhile, he is white cell count of 12.6 with a hemoglobin 8.9 and platelet count of 155. BUN is 92 with a creatinine of 4.5 and a sodium levels at 1 of 32 and a potassium level is at 4.4. Serum bicarb is 18. Calcium level is at 7.1. LFTs are within normal limits. Sputum samples were sent for culture. Antibiotic modification was done and the patient was taken off the cefepime and the patient was started on a combination of IV Invanz and Vanco mycin. The patient remains on amiodarone 200 mg p.o. twice a day. The patient is on DuoNeb nebulized treatments [id number]. He is receiving Levemir insulin 20 units twice daily and NovoLog sliding scale coverage. On 09/12/2024, the patient remains intubated on mechanical ventilator. No significant change in his condition since yesterday. Noted the patient was given a session of hemodialysis yesterday and is undergoing another session of hemodialysis this morning. The patient remains sedated on propofol. He remains on 50 mcg/kg/min and the patient will be given a sedation holiday to assess his underlying mental status. He remains on the mechanical ventilator assist- control mode with rate of 20, tidal volume of 450, FiO2 55% with a PEEP of 12. Blood gas showed a pH of 7.47 with a pCO2 of 34 and a pO2 of 81. He is still having episodes of fever with a temperature of 101.6. His antibiotics is modified and the patient is currently on a combination of IV Invanz and vancomycin. Pressor requirements have improved since yesterday and the patient is currently on norepinephrine running at 0.04 mcg/kg/min and the patient is on a vasopressin physiologic dose. IV fluids are KVO. He is on vital high-protein at rate of 35 cc an hour. WBC count is 11 with a hemoglobin of 8.4 and a platelet count of 164. Sodium is at 128, BUN is 63 with a creatinine of 3.58. Potassium levels of 4.2. Sputum samples were obtained yesterday and results are still pending for now. Meanwhile, the patient will be kept on the same antibiotic coverage. Remains on Levemir insulin and the patient is on 20 units twice daily and NovoLog sliding scale coverage. Objective - Vital Signs Vital signs: Vital Signs Temp 101.6 F H 09/12/24 08:00 Pulse 83 09/12/24 10:00 Resp 31 H 09/12/24 10:00 BP 166/58 09/11/24 16:57 Pulse Ox 100 09/12/24 10:00 FiO2 55 09/12/24 08:00 Intake & Output 09/11/24 09/12/24 09/12/24 18:59 06:59 18:59 Intake Total 2351.368 1044.020 773.488 Output Total 2560 550 10 Balance -208.632 494.020 763.488 Weight 90.6 kg 90.3 kg Intake: IV 192 208 522 A Line 72 78 12 LR 120 130 10 Vancomycin 1,500 mg In 500 Sodium Chloride 0.9% 500 ml 500 ml @ 167 mls/hr IVPB ONCE ONE Rx#: [id number] Intake, IV Titration 1137.368 416.020 121.488 Amount Norepinephrine 8 mg In 256.841 162.270 32.238 Sodium Chloride 0.9% 250 ml @ 0.03 MCG/KG/MIN 4. 737 mls/hr IV .Q24H [facility] Rx#:[id number] Vancomycin 1,500 mg In 500 Sodium Chloride 0.9% 500 ml 500 ml @ 167 mls/hr IVPB ONCE ONE Rx#: [id number] Vasopressin 60 unit In 128.902 Sodium Chloride 0.9% 150 ml @ 0.03 UNITS/MIN 4.59 mls/hr IV .Q24H [facility] Rx#: [id number] propofoL 1,000 mg In 251.625 253.75 89.25 Empty Bag 1 bag @ 15 MCG/ KG/MIN 6.75 mls/hr IV . [id number] [facility] Rx#:[id number] Tube Feeding 432 330 70 Hemodialysis 500 Other 90 90 60 Output: Urine 60 50 10 Stool 500 Hemodialysis 1500 Hemodialysis Net Amount 1000 Other: Voiding Method Indwelling Catheter Indwelling Catheter Indwelling Catheter # Bowel Movements 1 ABP, PAP, CO, CI - Last Documented Arterial Blood Pressure 122/49 - Exam GENERAL EXAM: Intubated, sedated 64-year-old male patient on the mechanical ventilator, in no apparent distress. Calm and comfortable, sedated on propofol HEAD: Normocephalic. EYES: Normal reaction of pupils, equal size. NOSE: Clear with pink turbinates. THROAT: Oral endotracheal and gastric tube secured in place. No erythema or exudates. NECK: No masses, no JVD.left IJ tripple lumen and tight radial art line and a right femeral HD cath. CHEST: No chest wall deformity. LUNGS: Equal air entry with coarse scattered rhonchi. CVS: Distant heart tones. S1 and S2 normal with no audible murmur, regular rhythm. ABDOMEN: No hepatosplenomegaly, normal bowel sounds, no guarding or rigidity. SPINE: No scoliosis or deformity SKIN: No rashes CENTRAL NERVOUS SYSTEM: No focal deficits, tone is normal in all 4 extremities. EXTREMITIES: There is 1+ peripheral edema. No clubbing, no cyanosis. Peripheral pulses are intact. - Labs CBC & Chem 7: 09/12/24 06:00 09/12/24 06:00 Labs: Abnormal Lab Results - Last 24 Hours (Table) 09/11/24 09/11/24 09/11/24 Range/Units 11:16 18:11 22:57 WBC (3.8-10.6) k/uL RBC (4.30-5.90) m/uL Hgb (13.0-17.5) gm/dL Hct (39.0-53.0) % Neutrophils # (1.3-7.7) k/uL Lymphocytes # (1.0-4.8) k/uL ABG pH (7.35-7.45) ABG pCO2 (35-45) mmHg ABG pO2 (83-108) mmHg ABG Total CO2 (19-24) mmol/L ABG O2 Saturation (94-97) % Hemoglobin (13.0-17.5) gm/dL Sodium (137-145) mmol/L Chloride (98-107) mmol/L BUN (9-20) mg/dL Creatinine (0.66-1.25) mg/dL Glucose (74-99) mg/dL POC Glucose (mg/dL) 196 H 138 H 214 H (70-110) mg/dL Calcium (8.4-10.2) mg/dL 09/12/24 09/12/24 09/12/24 Range/Units 05:19 05:26 06:00 WBC (3.8-10.6) k/uL RBC (4.30-5.90) m/uL Hgb (13.0-17.5) gm/dL Hct (39.0-53.0) % Neutrophils # (1.3-7.7) k/uL Lymphocytes # (1.0-4.8) k/uL ABG pH 7.47 H (7.35-7.45) ABG pCO2 34 L (35-45) mmHg ABG pO2 81 L (83-108) mmHg ABG Total CO2 26 H (19-24) mmol/L ABG O2 Saturation 97.1 H (94-97) % Hemoglobin 8.0 L (13.0-17.5) gm/dL Sodium 128 L (137-145) mmol/L Chloride 97 L (98-107) mmol/L BUN 63 H (9-20) mg/dL Creatinine 3.58 H (0.66-1.25) mg/dL Glucose 227 H (74-99) mg/dL POC Glucose (mg/dL) 271 H (70-110) mg/dL Calcium 7.1 L (8.4-10.2) mg/dL 09/12/24 Range/Units 06:00 WBC 11.0 H (3.8-10.6) k/uL RBC 2.77 L (4.30-5.90) m/uL Hgb 8.4 L (13.0-17.5) gm/dL Hct 24.7 L (39.0-53.0) % Neutrophils # 9.4 H (1.3-7.7) k/uL Lymphocytes # 0.7 L (1.0-4.8) k/uL ABG pH (7.35-7.45) ABG pCO2 (35-45) mmHg ABG pO2 (83-108) mmHg ABG Total CO2 (19-24) mmol/L ABG O2 Saturation (94-97) % Hemoglobin (13.0-17.5) gm/dL Sodium (137-145) mmol/L Chloride (98-107) mmol/L BUN (9-20) mg/dL Creatinine (0.66-1.25) mg/dL Glucose (74-99) mg/dL POC Glucose (mg/dL) (70-110) mg/dL Calcium (8.4-10.2) mg/dL Microbiology - Last 24 Hours (Table) 09/11/24 10:45 Gram Stain - Preliminary Sputum 09/04/24 17:04 Blood Culture Gram Stain - Final Blood Blood Culture - Final Enterobacter cloacae Complex Serratia marcescens Molecular ID Assessment and Plan Plan: Acute hypoxic respiratory failure, requiring mechanical ventilation and intubation on 09/05/24. Respiratory failure is multifactorial. The patient presented with significant metabolic derangements, acute on top of chronic renal failure, sepsis and decompensated heart failure. Remains intubated on mechanical ventilator and the chest x-ray is consistent with CHF.Repeat chest x- ray from today shows stable findings with scattered infiltrates that are unchanged. Patient has lower lobe consolidation suggestive of pneumonia. The patient is currently on a combination of IV Invanz and vancomycin. The blood gases are stable from today. The patient remains intubated on the mechanical ventilator with ongoing respiratory support. Awaiting sputum sample cultures. Bilateral lower lobe pneumonia, this is a hospital-acquired Episodes of fever Acute rhabdomyolysis, resolved, and the CPK levels have been downtrending Acute on top of chronic kidney disease. The patient is known to have stage 3 chronic kidney disease and the patient developed an acute kidney injury/ATN, currently on hemodialysis, femoral hemodialysis catheter was placed on the left femoral vein and the patient has undergone hemodialysis on 09/11/2024 and 09/12/2024 Systolic heart failure with an ejection fraction of 30% Elevated troponins, in setting of acute renal failure Sepsis, secondary to urinary tract infection. Noted Enterobacter cloacae was cultured in the urine and the blood and the blood culture is also positive for Serratia marcescens. The patient is on IV antibiotics patient remains on a combination of norepinephrine and vasopressin for hemodynamic support. The pres sor requirements improved over the past 24 hours Fever secondary to sepsis, currently afebrile Leukocytosis secondary to above, improving Hypertension Mechanical fall, is on home 2 weeks prior Hyperkalemia, resolved Anion gap metabolic acidosis, resolved Hyperphosphatemia, improving Hypocalcemia likely secondary to decreased albumin History of hypertension Hyperlipidemia diabetes mellitus type 2 Hx of frequent UTIs Plan: Continue ventilator support Chest x-ray was noted and the findings are essentially stable Continue IV Invanz and vancomycin titrate down the pressors as tolerated to keep the mean arterial pressure above 65, currently on norepinephrine CAT scan of the abdomen and pelvis was noted Continue Levemir insulin 20 units twice daily along with a sliding scale cover age Amiodarone 200 mg p.o. twice a day Dilaudid for pain control Continue bronchodilators Heparin for DVT prophylaxis Continue hemodialysis per nephrology, hemodialysis to be done today Enteral feeding for nutritional support and the patient is currently on vital HP Give the patient a sedation holiday and assess mental status We will continue to follow and make further recommendations based on his clinical status Not ready for weaning at this point in time due to above-mentioned comorbidities. Evaluation was done more than 30 minutes and this is a critical care evaluation Time with Patient: Greater than 30
[2024-09-12] MEDS: ACETAMINOPHEN TAB 325 MG TAB PO PRN (15:59)
[2024-09-12 18:52] LABS: Glucose,Whole Blood 150 mg/dL (70-110)
[2024-09-12] MEDS: INSULIN DETEMIR (LEVEMIR) 100 UNIT/ML SYR SQ SCH (20:52)
[2024-09-13 05:30] LABS: Glucose,Whole Blood 165 mg/dL (70-110)
[2024-09-13 05:40] LABS: Basophils % (A) 0 %; Eosinophils # (A) 0.1 k/uL (0-0.7); Eosinophils % (A) 1 %; HCT 21.5 % (39.0-53.0); HGB 7.3 gm/dL (13.0-17.5); Lymphocytes # (A) 0.8 k/uL (1.0-4.8); Lymphocytes % (A) 8 %; MCH 29.9 pg (25.0-35.0); MCHC 33.8 g/dL (31.0-37.0); MCV 88.5 fL (80.0-100.0); Mean Platelet Volume 10.7; Monocytes # (A) 0.4 k/uL (0-1.0); Monocytes % (A) 4 %; Neutrophils # (A) 8.1 k/uL (1.3-7.7); Neutrophils % (A) 82 %; Platelet Count 184 k/uL (150-450); RBC 2.43 m/uL (4.30-5.90); RDW 15.8 % (11.5-15.5); WBC 9.9 k/uL (3.8-10.6)
[2024-09-13 06:03] LABS: ABG Base Excess 2.7 mmol/L; ABG HCO3 27 mmol/L (21-25); ABG PCO2 37 mmHg (35-45); ABG PH 7.47 (7.35-7.45); ABG PO2 92 mmHg (83-108); ABG TCO2 28 mmol/L (19-24); Allen Test Performed? Yes
[2024-09-13 06:40] LABS: African American GFR (CKD) 26 (>60 ml/min/1.73 sqM); Anion Gap 6 mmol/L; Blood Urea Nitrogen 52 mg/dL (9-20); Calcium 7.4 mg/dL (8.4-10.2); Carbon Dioxide 24 mmol/L (22-30); Chloride 98 mmol/L (98-107); Glucose 141 mg/dL (74-99); Non-African American GFR(CKD) 22 (>60 ml/min/1.73 sqM); Sodium 128 mmol/L (137-145)
[2024-09-13 06:45] LABS: Vancomycin,Random 15.2 ug/mL
--- NOTE | 2024-09-13 07:23 | XR ---
EXAMINATION TYPE: XR chest 1V portable DATE OF EXAM: 09/13/2024 6:36 AM COMPARISON: 09/12/2024 CLINICAL INDICATION: Male, 64 years old with history of mechanical ventilation, FINDINGS: Indwelling tubes and catheters are unchanged. No change in bibasilar opacities. Stable appearance of the cardio-mediastinal structures at this time. IMPRESSION: 1. Stable portable chest. Clinical correlation and follow up until resolution is recommended. [facility], , 09/13/2024 7:21 AM
--- NOTE | 2024-09-13 08:09 | P.PN ---
Subjective Progress Note Date: 09/12/24 Principal diagnosis: Reason for follow-up is sepsis and bacteremia Patient is a 64-year-old male with a past medical history significant for diabetes mellitus hyperlipidemia, chronic kidney disease patient has been brought to the hospital after the patient was found on the ground for unknown amount of time patient was noted to be septic requiring admission to the ICU on the ventilator subsequent did have a positive blood culture with Enterobacter. On today's evaluation that is 09/12/2024,the patient did spike a fever of 101.1 degrees Fahrenheit this morning patient remains to be intubated on the vent FiO2 is currently stable at 55% no significant purulent secretion through the ET patient is requiring pressor support but lesser amount. Patient white count is down to 11,000, creatinine 3.58 stool for C. difficile is negative repeat blood and sputum cultures currently pending Objective - Vital Signs Vital signs: Vital Signs Temp 98.6 F 09/12/24 12:00 Pulse 73 09/12/24 13:00 Resp 34 H 09/12/24 13:00 BP 166/58 09/11/24 16:57 Pulse Ox 100 09/12/24 13:00 FiO2 55 09/12/24 12:00 Intake & Output 09/11/24 09/12/24 09/12/24 18:59 06:59 18:59 Intake Total 2351.368 7124.174 7824.738 Output Total 2560 550 15 Balance -208.632 229.296 9978.738 Weight 90.6 kg 90.3 kg Intake: IV 192 208 586 A Line 72 78 36 LR 120 130 50 Vancomycin 1,500 mg In 500 Sodium Chloride 0.9% 500 ml 500 ml @ 167 mls/hr IVPB ONCE ONE Rx#: [id number] Intake, IV Titration 1137.368 416.020 207.738 Amount Norepinephrine 8 mg In 256.841 162.270 32.238 Sodium Chloride 0.9% 250 ml @ 0.03 MCG/KG/MIN 4. 737 mls/hr IV .Q24H [facility] Rx#:[id number] Vancomycin 1,500 mg In 500 Sodium Chloride 0.9% 500 ml 500 ml @ 167 mls/hr IVPB ONCE ONE Rx#: [id number] Vasopressin 60 unit In 128.902 Sodium Chloride 0.9% 150 ml @ 0.03 UNITS/MIN 4.59 mls/hr IV .Q24H [facility] Rx#: [id number] propofoL 1,000 mg In 251.625 253.75 175.50 Empty Bag 1 bag @ 15 MCG/ KG/MIN 6.75 mls/hr IV . [id number] [facility] Rx#:[id number] Tube Feeding 432 330 210 Hemodialysis 500 Other 90 90 90 Output: Urine 60 50 15 Stool 500 Hemodialysis 1500 Hemodialysis Net Amount 1000 Other: Voiding Method Indwelling Catheter Indwelling Catheter Indwelling Catheter # Bowel Movements 1 ABP, PAP, CO, CI - Last Documented Arterial Blood Pressure 110/49 - Exam GENERAL DESCRIPTION: An elderly male intubated on the vent RESPIRATORY SYSTEM: Unlabored breathing , decreased breath sounds at bases HEART: S1 S2 regular rate and rhythm , ABDOMEN: Soft , no tenderness EXTREMITIES: No edema feet - Labs CBC & Chem 7: 09/13/24 05:27 09/13/24 05:27 Labs: Abnormal Lab Results - Last 24 Hours (Table) 09/11/24 09/11/24 09/12/24 Range/Units 18:11 22:57 05:19 WBC (3.8-10.6) k/uL RBC (4.30-5.90) m/uL Hgb (13.0-17.5) gm/dL Hct (39.0-53.0) % Neutrophils # (1.3-7.7) k/uL Lymphocytes # (1.0-4.8) k/uL ABG pH 7.47 H (7.35-7.45) ABG pCO2 34 L (35-45) mmHg ABG pO2 81 L (83-108) mmHg ABG Total CO2 26 H (19-24) mmol/L ABG O2 Saturation 97.1 H (94-97) % Hemoglobin 8.0 L (13.0-17.5) gm/dL Sodium (137-145) mmol/L Chloride (98-107) mmol/L BUN (9-20) mg/dL Creatinine (0.66-1.25) mg/dL Glucose (74-99) mg/dL POC Glucose (mg/dL) 138 H 214 H (70-110) mg/dL Calcium (8.4-10.2) mg/dL 09/12/24 09/12/24 09/12/24 Range/Units 05:26 06:00 06:00 WBC 11.0 H (3.8-10.6) k/uL RBC 2.77 L (4.30-5.90) m/uL Hgb 8.4 L (13.0-17.5) gm/dL Hct 24.7 L (39.0-53.0) % Neutrophils # 9.4 H (1.3-7.7) k/uL Lymphocytes # 0.7 L (1.0-4.8) k/uL ABG pH (7.35-7.45) ABG pCO2 (35-45) mmHg ABG pO2 (83-108) mmHg ABG Total CO2 (19-24) mmol/L ABG O2 Saturation (94-97) % Hemoglobin (13.0-17.5) gm/dL Sodium 128 L (137-145) mmol/L Chloride 97 L (98-107) mmol/L BUN 63 H (9-20) mg/dL Creatinine 3.58 H (0.66-1.25) mg/dL Glucose 227 H (74-99) mg/dL POC Glucose (mg/dL) 271 H (70-110) mg/dL Calcium 7.1 L (8.4-10.2) mg/dL 09/12/24 Range/Units 11:59 WBC (3.8-10.6) k/uL RBC (4.30-5.90) m/uL Hgb (13.0-17.5) gm/dL Hct (39.0-53.0) % Neutrophils # (1.3-7.7) k/uL Lymphocytes # (1.0-4.8) k/uL ABG pH (7.35-7.45) ABG pCO2 (35-45) mmHg ABG pO2 (83-108) mmHg ABG Total CO2 (19-24) mmol/L ABG O2 Saturation (94-97) % Hemoglobin (13.0-17.5) gm/dL Sodium (137-145) mmol/L Chloride (98-107) mmol/L BUN (9-20) mg/dL Creatinine (0.66-1.25) mg/dL Glucose (74-99) mg/dL POC Glucose (mg/dL) 177 H (70-110) mg/dL Calcium (8.4-10.2) mg/dL Microbiology - Last 24 Hours (Table) 09/11/24 10:45 Gram Stain - Preliminary Sputum Sputum Culture - Preliminary 09/04/24 17:04 Blood Culture Gram Stain - Final Blood Blood Culture - Final Enterobacter cloacae Complex Serratia marcescens Molecular ID Assessment and Plan (1) Sepsis Current Visit: Yes Status: Acute Code(s): A41.9 - SEPSIS, UNSPECIFIED ORGANISM SNOMED Code(s): 68256040 (2) Pneumonia Current Visit: Yes Status: Acute Code(s): J18.9 - PNEUMONIA, UNSPECIFIED ORGANISM SNOMED Code(s): 585279468 (3) UTI (urinary tract infection) Current Visit: No Status: Acute Code(s): N39.0 - URINARY TRACT INFECTION, SITE NOT SPECIFIED SNOMED Code(s): 48755579 Plan: 1patient with sepsis in this patient who did have a fever hyortension requiring pressor support maintaining criteria for SIRS source is likely UTI pneumonia not entirely excluded 2-blood culture came back positive with Enterobacter and Serratia, urine is growing Enterobacter 3-patient CT abdominal pelvis did not show any intra-abdominal pelvic abscess concerning for bibasilar pneumonia and cholelithiasis 4patient has developed a new fever culture have been repeated which are currently pending antibiotic were adjusted to vancomycin and ertapenem yesterday may be continued while watching his kidney function closely and waiting for repeat culture to finalize Dictation was produced using [employer] dictation software. please excuse any grammatical, word or spelling errors. Time with Patient: Less than 30
[2024-09-13] MEDS: PANTOPRAZOLE 40 MG/10 ML VIAL IVP SCH (08:11)
--- NOTE | 2024-09-13 09:19 | PN ---
PROGRESS NOTE DATE OF SERVICE: 09/12/2024 SUBJECTIVE: This is a 64-year-old gentleman who was admitted with change in mental status, metabolic encephalopathy, also had sepsis and UTI. The patient is currently on newly started hemodialysis, the blood sugars have been 227. The patient is still on pressor support. The patient is being closely monitored at this time. PAST MEDICAL HISTORY: Reviewed. REVIEW OF SYSTEMS: Could not be taken. The patient is mechanically sedated. CURRENT MEDICATIONS: Reviewed. PHYSICAL EXAMINATION: VITAL SIGNS: Pulse is 73, blood pressure 110/49. HEENT: Conjunctivae normal. CARDIOVASCULAR: S1, S2. RESPIRATIONS: Breath sounds diminished at the bases. A few scattered rhonchi. ABDOMEN: Soft. NERVOUS SYSTEM: Nonfocal. LABORATORY DATA: WBC 11. Sodium is 128. Urine culture, enterobacter cloacae and blood culture is enterobacter cloacae and Serratia marcescens. ASSESSMENT: 1. Enterobacter cloacae, sepsis with urinary tract infection. 2. Acute respiratory failure, on mechanical ventilation. 3. Acute diabetic ketoacidosis present on admission. 4. Acute renal failure, on hemodialysis. 5. History of diabetes mellitus type 2. 6. Hyperlipidemia. 7. Bilateral pneumonia. RECOMMENDATIONS AND DISCUSSION: This is a 64-year-old gentleman presented with multiple complex medical issues. At this time, continue the current medications, continue symptomatic treatment. The most recent cultures are negative at this time. The white count is improving. I recommend repeat blood cultures. The creatinine is 3.58. Continue to monitor. Continue the pressor support. The patient has hypoalbuminemia. CT of the abdomen and pelvis showed cholelithiasis. Chest x-ray was reviewed. Prognosis guarded. Further recommendations to follow. MMODL / IJN: [id number] /
--- NOTE | 2024-09-13 10:36 | CDI ---
Documentation Clarification Form Date: 09/13/2024 09:18:32 AM From: Estela Self RN,CCDS Phone: [phone] Admit Date: 09/04/2024 06:11:00 PM Patient Name: Gopi York Visit Number: [id number] Discharge Date: ATTENTION: The Clinical Documentation Specialists (CDI) and [facility] Coding Staff appreciate your assistance in clarifying documentation. Please respond to the clarification below the line at the bottom and electronically sign. The CDI & [facility] Coding staff will review the response and follow-up if needed. Please note: Queries are made part of the Legal Health Record. If you have any questions, please contact the author of this message via ITS. Doctor/Provider: Chavo Howard 09/11 Pulmonary progress notes: CT abdomen bilateral lower lobe consolidation. Suspect ongoing pneumonia or a hospital-acquired pneumonia. Hospital acquired Pneumonia is documented in your progress note on 09/12/24. Additional clarification regarding the type of pneumonia is requested. History/Risk Factors: Diabetes Mellitus, Hyperlipidemia Clinical Indicators: 64 male who presents on 09/04/24 for evaluation being found on the ground for unknown amount of time. 09/04 VS: 80/60 89 24 97.7 91% RA (23:04) RR 44, Labored, accessory muscle use, Shallow, Tachypnea 09/04 CXR: Mild linear infiltrate within the mid left lung may be atelectasis concern early pneumonia. 09/05 Pulmonary consult: Acute hypoxemic respiratory failure, was placed on BiPAP to support work of breathing, chest x-ray showing cardiomegaly and pulmonary vascular congestion, concerning for fluid overload. Left midlung linear infiltrate concerning for atelectasis or early pneumonia. 09/05 ID: patient with sepsis in this patient who did have a fever hypotension requiring pressor support maintaining criteria for SIRS source is likely UTI, pneumonia not entirely excluded WBC/Left shift: WBC 17.3, Neutrophils 16.0, Procalcitonin >100.00 BUN 137, CR 8.82, Lactic acid 2.6 CPK 7555 Lung/Breathing assessment Treatment: ICU/Telemetry monitoring Rocephin 2 GM IVPB 09/04-09/05 Zithromax 500 MB IVPB 09/04-09/05 Duoneb Inhalation Q 4 HRS Invanz 0.5 GM IVPB Q 24 HRS Vancomycin HCl 1,500 MG IVPB Once (PTD) Please clarify the type of pneumonia, if known: [ x ] Pneumonia POA, specify type if known [ ] Gram Negative Bacterial Pneumonia [ ] Other bacteria (please specify) [ ] Other, please specify [ ] Unable to determine (Template Last Revised: November 2020) MTDD
--- NOTE | 2024-09-13 11:18 | P.PN ---
Subjective Patient is seen in follow-up for acute kidney injury on chronic kidney disease. Started on hemodialysis September 06, 2024 via right femoral catheter. Catheter was not functioning well and new catheter was placed September 11, 2024. Off Levophed. On vasopressin. Oliguric. Intubated. Tolerated 1.5 L ultrafiltration yesterday. Vital signs are stable. On vasopressor support. General: Resting in bed. HEENT: Intubated. LUNGS: Scattered rhonchi. HEART: Rate and Rhythm are regular. ABDOMEN: No distention. EXTREMITITES: 1+ edema. Scrotal edema noted. Objective - Vital Signs Vital signs: Vital Signs Temp 99.1 F 09/13/24 08:00 Pulse 77 09/13/24 11:16 Resp 27 H 09/13/24 10:45 BP 138/57 09/12/24 16:30 Pulse Ox 99 09/13/24 10:45 FiO2 40 09/13/24 10:45 Intake & Output 09/12/24 09/13/24 09/13/24 18:59 06:59 18:59 Intake Total 2029.811 850.937 278.291 Output Total 3420 20 10 Balance -1390.189 830.937 268.291 Weight 91.1 kg Intake: IV 706 192 64 Ertapenem 0.5 gm In 50 Sodium Chloride 0.9% 50 ml @ 100 mls/hr IVPB Q24H [facility] Rx#:[id number] LR 90 120 40 Vancomycin 1,500 mg In 500 Sodium Chloride 0.9% 500 ml 500 ml @ 167 mls/hr IVPB ONCE ONE Rx#: [id number] a line + CVP 66 72 24 Intake, IV Titration 418.811 148.937 74.291 Amount Norepinephrine 8 mg In 89.292 49.187 1.131 Sodium Chloride 0.9% 250 ml @ 0.03 MCG/KG/MIN 4. 737 mls/hr IV .Q24H [facility] Rx#:[id number] Vasopressin 60 unit In 124.619 73.160 Sodium Chloride 0.9% 150 ml @ 0.03 UNITS/MIN 4.59 mls/hr IV .Q24H [facility] Rx#: [id number] propofoL 1,000 mg In 204.90 99.75 Empty Bag 1 bag @ 15 MCG/ KG/MIN 6.75 mls/hr IV . [id number] [facility] Rx#:[id number] Tube Feeding 385 420 140 Hemodialysis 400 Other 120 90 Output: Urine 20 20 10 Hemodialysis 1900 Hemodialysis Net Amount 1500 Other: Voiding Method Indwelling Catheter Indwelling Catheter Indwelling Catheter ABP, PAP, CO, CI - Last Documented Arterial Blood Pressure 136/55 - Labs CBC & Chem 7: 09/13/24 05:27 09/13/24 05:27 Labs: Abnormal Lab Results - Last 24 Hours (Table) 09/12/24 09/12/24 09/13/24 Range/Units 11:59 18:51 05:27 RBC 2.43 L (4.30-5.90) m/uL Hgb 7.3 L (13.0-17.5) gm/dL Hct 21.5 L (39.0-53.0) % RDW 15.8 H (11.5-15.5) % Neutrophils # 8.1 H (1.3-7.7) k/uL Lymphocytes # 0.8 L (1.0-4.8) k/uL ABG pH (7.35-7.45) ABG HCO3 (21-25) mmol/L ABG Total CO2 (19-24) mmol/L ABG O2 Saturation (94-97) % Hemoglobin (13.0-17.5) gm/dL Sodium (137-145) mmol/L BUN (9-20) mg/dL Creatinine (0.66-1.25) mg/dL Glucose (74-99) mg/dL POC Glucose (mg/dL) 177 H 150 H (70-110) mg/dL Calcium (8.4-10.2) mg/dL 09/13/24 09/13/24 09/13/24 Range/Units 05:27 05:29 06:03 RBC (4.30-5.90) m/uL Hgb (13.0-17.5) gm/dL Hct (39.0-53.0) % RDW (11.5-15.5) % Neutrophils # (1.3-7.7) k/uL Lymphocytes # (1.0-4.8) k/uL ABG pH 7.47 H (7.35-7.45) ABG HCO3 27 H (21-25) mmol/L ABG Total CO2 28 H (19-24) mmol/L ABG O2 Saturation 98.0 H (94-97) % Hemoglobin 7.2 L (13.0-17.5) gm/dL Sodium 128 L (137-145) mmol/L BUN 52 H (9-20) mg/dL Creatinine 2.83 H (0.66-1.25) mg/dL Glucose 141 H (74-99) mg/dL POC Glucose (mg/dL) 165 H (70-110) mg/dL Calcium 7.4 L (8.4-10.2) mg/dL Microbiology - Last 24 Hours (Table) 09/11/24 10:45 Gram Stain - Final Sputum Sputum Culture - Final Assessment and Plan Plan: Assessment: 1. Acute kidney injury secondary to ATN secondary to septic shock. Oliguric. No hydronephrosis noted on imaging. Started on hemodialysis September 06, 2024 via right femoral catheter; left femoral catheter was placed September 11, 2024. 2. Chronic kidney disease stage IIIb with baseline creatinine 1.8-2 secondary to diabetic kidney disease. 3. Septic shock with blood cultures positive for Enterobacter and Serratia and urine culture positive for Enterobacter. On antibiotics. 4. Metabolic acidosis secondary to acute kidney injury. Improved. 5. Diabetes mellitus. 6. Rhabdomyolysis. CK levels trending down. CK level 680 dated September 10, 2024. 7. Acute hypoxic respiratory failure. Intubated. 8. History of right renal mass not clearly seen on ultrasound this admission. Will need to see urology outpatient. 9. Volume overload. Improving with daily ultrafiltration. 10. Hypervolemic hyponatremia. 11. Anemia of chronic kidney disease. On Aranesp. Plan: Daily dialysis for now due to volume overload. No response in urine output status post IV Lasix given September 11, 2024. Maintain tube feeds. Wean FiO2 and vasopressors. Continue to monitor renal function and urine output. Phosphorus level 4.0 dated September 12, 2024.
[2024-09-13 11:24] LABS: Glucose,Whole Blood 118 mg/dL (70-110)
--- NOTE | 2024-09-13 11:33 | P.PN ---
Subjective Progress Note Date: 09/13/24 Principal diagnosis: Acute kidney injury requiring hemodialysis Patient was seen and examined today as a follow-up. He remains intubated and sedated. He is currently undergoing hemodialysis from his left temporary HD catheter without any complications. Objective - Vital Signs Vital signs: Vital Signs Temp 99.1 F 09/13/24 08:00 Pulse 70 09/13/24 09:45 Resp 29 H 09/13/24 09:45 BP 138/57 09/12/24 16:30 Pulse Ox 98 09/13/24 09:45 FiO2 40 09/13/24 09:45 Intake & Output 09/12/24 09/13/24 09/13/24 18:59 06:59 18:59 Intake Total 2029.811 850.937 278.291 Output Total 3420 20 10 Balance -1390.189 830.937 268.291 Weight 91.1 kg Intake: IV 706 192 64 Ertapenem 0.5 gm In 50 Sodium Chloride 0.9% 50 ml @ 100 mls/hr IVPB Q24H [facility] Rx#:[id number] LR 90 120 40 Vancomycin 1,500 mg In 500 Sodium Chloride 0.9% 500 ml 500 ml @ 167 mls/hr IVPB ONCE ONE Rx#: [id number] a line + CVP 66 72 24 Intake, IV Titration 418.811 148.937 74.291 Amount Norepinephrine 8 mg In 89.292 49.187 1.131 Sodium Chloride 0.9% 250 ml @ 0.03 MCG/KG/MIN 4. 737 mls/hr IV .Q24H [facility] Rx#:[id number] Vasopressin 60 unit In 124.619 73.160 Sodium Chloride 0.9% 150 ml @ 0.03 UNITS/MIN 4.59 mls/hr IV .Q24H [facility] Rx#: [id number] propofoL 1,000 mg In 204.90 99.75 Empty Bag 1 bag @ 15 MCG/ KG/MIN 6.75 mls/hr IV . [id number] [facility] Rx#:[id number] Tube Feeding 385 420 140 Hemodialysis 400 Other 120 90 Output: Urine 20 20 10 Hemodialysis 1900 Hemodialysis Net Amount 1500 Other: Voiding Method Indwelling Catheter Indwelling Catheter ABP, PAP, CO, CI - Last Documented Arterial Blood Pressure 102/45 - Exam General appearance: The patient is sedated and intubated HET: Head is normocephalic and atraumatic. Neck: Supple. Heart: Regular. Lungs: Equal expansion, on mechanical ventilation. Abdomen: Soft, nondistended. Extremities: Normal skin color and turgor. Right groin with dressing clean dry and intact, no hematoma or bleeding noted. Left groin with temporary HD catheter with dressing, clean dry and intact. Neurological: Sedated and intubated. - Labs CBC & Chem 7: 09/13/24 05:27 09/13/24 05:27 Labs: Abnormal Lab Results - Last 24 Hours (Table) 09/12/24 09/12/24 09/13/24 Range/Units 11:59 18:51 05:27 RBC 2.43 L (4.30-5.90) m/uL Hgb 7.3 L (13.0-17.5) gm/dL Hct 21.5 L (39.0-53.0) % RDW 15.8 H (11.5-15.5) % Neutrophils # 8.1 H (1.3-7.7) k/uL Lymphocytes # 0.8 L (1.0-4.8) k/uL ABG pH (7.35-7.45) ABG HCO3 (21-25) mmol/L ABG Total CO2 (19-24) mmol/L ABG O2 Saturation (94-97) % Hemoglobin (13.0-17.5) gm/dL Sodium (137-145) mmol/L BUN (9-20) mg/dL Creatinine (0.66-1.25) mg/dL Glucose (74-99) mg/dL POC Glucose (mg/dL) 177 H 150 H (70-110) mg/dL Calcium (8.4-10.2) mg/dL 09/13/24 09/13/24 09/13/24 Range/Units 05:27 05:29 06:03 RBC (4.30-5.90) m/uL Hgb (13.0-17.5) gm/dL Hct (39.0-53.0) % RDW (11.5-15.5) % Neutrophils # (1.3-7.7) k/uL Lymphocytes # (1.0-4.8) k/uL ABG pH 7.47 H (7.35-7.45) ABG HCO3 27 H (21-25) mmol/L ABG Total CO2 28 H (19-24) mmol/L ABG O2 Saturation 98.0 H (94-97) % Hemoglobin 7.2 L (13.0-17.5) gm/dL Sodium 128 L (137-145) mmol/L BUN 52 H (9-20) mg/dL Creatinine 2.83 H (0.66-1.25) mg/dL Glucose 141 H (74-99) mg/dL POC Glucose (mg/dL) 165 H (70-110) mg/dL Calcium 7.4 L (8.4-10.2) mg/dL Microbiology - Last 24 Hours (Table) 09/11/24 10:45 Gram Stain - Final Sputum Sputum Culture - Final Assessment and Plan Assessment: 1. Acute kidney injury requiring hemodialysis status post temporary HD catheter placement 2. Malfunctioning temporary HD catheter status post replacement 3. Altered mental status changes 4. Rhabdomyolysis 5. Positive UTI 6. Bacteremia Plan: 1. Hemodialysis per recommendations from nephrology 2. Rest of medical management per primary medical team Thank you for this consultation, we will be on standby. Please call us back if patient should need permacath placement. The impression and plan of care has been dictated as directed. Dr. Santiago I performed a history and examination of this patient, discussed the same with the dictator. I agree with the dictator's note ,documented as a scribe. Any additional findings or plans will be noted.
[2024-09-13 11:56] LABS: Glucose,Whole Blood 105 mg/dL (70-110)
--- NOTE | 2024-09-13 13:07 | P.PN ---
Subjective Progress Note Date: 09/13/24 Principal diagnosis: Reason for follow-up is sepsis and bacteremia Patient is a 64-year-old male with a past medical history significant for diabetes mellitus hyperlipidemia, chronic kidney disease patient has been brought to the hospital after the patient was found on the ground for unknown amount of time patient was noted to be septic requiring admission to the ICU on the ventilator subsequent did have a positive blood culture with Enterobacter. On today's evaluation that is 09/13/2024,the patient did have improvement in his fever pattern with a temperature of 99.1 F 8 AM patient still requiring pressor however requiring less of the vasopressin as reported by the nursing staff patient FiO2 stable at 40% and is undergoing dialysis. No other changes reporte d The patient white count is 9.9 creatinine is 2.80 3 repeat cultures are pending Objective - Vital Signs Vital signs: Vital Signs Temp 99.1 F 09/13/24 08:00 Pulse 75 09/13/24 12:15 Resp 25 H 09/13/24 12:15 BP 138/57 09/12/24 16:30 Pulse Ox 99 09/13/24 12:15 FiO2 40 09/13/24 12:15 Intake & Output 09/12/24 09/13/24 09/13/24 18:59 06:59 18:59 Intake Total 2029.811 850.937 491.579 Output Total 3420 20 510 Balance -1390.189 830.937 -18.421 Weight 91.1 kg Intake: IV 706 192 96 Ertapenem 0.5 gm In 50 Sodium Chloride 0.9% 50 ml @ 100 mls/hr IVPB Q24H [facility] Rx#:[id number] LR 90 120 60 Vancomycin 1,500 mg In 500 Sodium Chloride 0.9% 500 ml 500 ml @ 167 mls/hr IVPB ONCE ONE Rx#: [id number] a line + CVP 66 72 36 Intake, IV Titration 418.811 148.937 125.579 Amount Norepinephrine 8 mg In 89.292 49.187 11.263 Sodium Chloride 0.9% 250 ml @ 0.03 MCG/KG/MIN 4. 737 mls/hr IV .Q24H [facility] Rx#:[id number] Vasopressin 60 unit In 124.619 74.716 Sodium Chloride 0.9% 150 ml @ 0.03 UNITS/MIN 4.59 mls/hr IV .Q24H [facility] Rx#: [id number] propofoL 1,000 mg In 204.90 99.75 39.6 Empty Bag 1 bag @ 15 MCG/ KG/MIN 6.75 mls/hr IV . [id number] [facility] Rx#:[id number] Tube Feeding 385 420 210 Hemodialysis 400 Other 120 90 60 Output: Urine 20 20 10 Stool 500 Hemodialysis 1900 Hemodialysis Net Amount 1500 Other: Voiding Method Indwelling Catheter Indwelling Catheter Indwelling Catheter ABP, PAP, CO, CI - Last Documented Arterial Blood Pressure 136/50 - Exam GENERAL DESCRIPTION: An elderly male intubated on the vent RESPIRATORY SYSTEM: Unlabored breathing , decreased breath sounds at bases HEART: S1 S2 regular rate and rhythm , ABDOMEN: Soft , no tenderness EXTREMITIES: No edema feet - Labs CBC & Chem 7: 09/13/24 05:27 09/13/24 05:27 Labs: Abnormal Lab Results - Last 24 Hours (Table) 09/12/24 09/13/24 09/13/24 Range/Units 18:51 05:27 05:27 RBC 2.43 L (4.30-5.90) m/uL Hgb 7.3 L (13.0-17.5) gm/dL Hct 21.5 L (39.0-53.0) % RDW 15.8 H (11.5-15.5) % Neutrophils # 8.1 H (1.3-7.7) k/uL Lymphocytes # 0.8 L (1.0-4.8) k/uL ABG pH (7.35-7.45) ABG HCO3 (21-25) mmol/L ABG Total CO2 (19-24) mmol/L ABG O2 Saturation (94-97) % Hemoglobin (13.0-17.5) gm/dL Sodium 128 L (137-145) mmol/L BUN 52 H (9-20) mg/dL Creatinine 2.83 H (0.66-1.25) mg/dL Glucose 141 H (74-99) mg/dL POC Glucose (mg/dL) 150 H (70-110) mg/dL Calcium 7.4 L (8.4-10.2) mg/dL 09/13/24 09/13/24 09/13/24 Range/Units 05:29 06:03 11:23 RBC (4.30-5.90) m/uL Hgb (13.0-17.5) gm/dL Hct (39.0-53.0) % RDW (11.5-15.5) % Neutrophils # (1.3-7.7) k/uL Lymphocytes # (1.0-4.8) k/uL ABG pH 7.47 H (7.35-7.45) ABG HCO3 27 H (21-25) mmol/L ABG Total CO2 28 H (19-24) mmol/L ABG O2 Saturation 98.0 H (94-97) % Hemoglobin 7.2 L (13.0-17.5) gm/dL Sodium (137-145) mmol/L BUN (9-20) mg/dL Creatinine (0.66-1.25) mg/dL Glucose (74-99) mg/dL POC Glucose (mg/dL) 165 H 118 H (70-110) mg/dL Calcium (8.4-10.2) mg/dL Microbiology - Last 24 Hours (Table) 09/11/24 10:45 Gram Stain - Final Sputum Sputum Culture - Final Assessment and Plan (1) Sepsis Current Visit: Yes Status: Acute Code(s): A41.9 - SEPSIS, UNSPECIFIED ORGANISM SNOMED Code(s): 48059275 (2) Pneumonia Current Visit: Yes Status: Acute Code(s): J18.9 - PNEUMONIA, UNSPECIFIED ORGANISM SNOMED Code(s): 158113798 (3) UTI (urinary tract infection) Current Visit: No Status: Acute Code(s): N39.0 - URINARY TRACT INFECTION, SITE NOT SPECIFIED SNOMED Code(s): 24148314 Plan: 1patient with sepsis in this patient who did have a fever hyortension requiring pressor support maintaining criteria for SIRS source is likely UTI pneumonia not entirely excluded 2-blood culture came back positive with Enterobacter and Serratia, urine is growing Enterobacter 3-patient CT abdominal pelvis did not show any intra-abdominal pelvic abscess concerning for bibasilar pneumonia and cholelithiasis 4patient did have some improvement in his fever pattern and his white count is normalized patient is currently covered with vancomycin and ertapenem to be continued while watching his kidney function closely and waiting for repeat culture to finalize Dictation was produced using [employer] dictation software. please excuse any grammatical, word or spelling errors. Time with Patient: Less than 30
[2024-09-13] MEDS: VANCOMYCIN 1,500 MG in SODIUM CHLORIDE 0.9% 500 ML 500 ML IVPB ONE (13:51)
[2024-09-13 16:54] LABS: Glucose,Whole Blood 134 mg/dL (70-110)
--- NOTE | 2024-09-13 17:18 | P.PN ---
Subjective Progress Note Date: 09/13/24 Patient is a 64-year-old male with past medical history significant for diabetes mellitus, chronic kidney disease, hyperlipidemia, hypertension, among other things. Patient is currently in the intensive care unit, he is a poor historian. Unable to provide reliable history. The ER provider did not contact me. Per the ER documentation, patient was found on the ground for an unknown known amount of time, last seen well 2 weeks prior by his sister. He was found to be in acute rhabdomyolysis with acute renal failure. He was also found with elevated blood sugars. CT of the brain and C-spine without contrast showing no acute intracranial process and no acute osseous abnormalities of the C-spine. Initial labs include a CBC: WBC count 17.3, hemoglobin 14.6, hematocrit 45.1, platelets 226. CMP: Sodium 136, potassium 5.7, chloride 95, serum bicarb 14, BUN 137, creatinine 8.82, glucose 578. Lactic 1.5. Magnesium 2.7. LFTs mildly elevated. Troponin 0.043. NT proBNP 4510. EKG: normal sinus rhythm, rate 88 bpm, incomplete RBB pattern, without obvious acute ischemic changes. Urine drug screen unremarkable. Serum ETOH < 10. Currently evaluating this patient in the intensive care unit. CPK was 7555 on arrival. Did receive 1.5 L normal saline bolus in in ED and started on normal saline at 130 ml/hr. Subsequently started on sodium bicarbonate infusion 3 A in D5W at 100 mL/h. urine output is in the order of 30 to 50 cc/h. Nephrology is managing. Repeat potassium is down to 4.7. On arrival blood glucose 578, serum bicarb 12, anion gap 27, acetone positive. Patient has also been started on insulin infusion Per protocol. He did develop some respiratory distress, breathing in the high 40s. I did ask for the pateint to be placed on BiPAP with settings 10/5 and FiO2 to be titrated a ppropriately. Chest x-ray showing cardiomegaly. There is a left midlung linear infiltrates concerning for atelectasis or early pneumonia. Patient does have bruising to his left lateral chest. It is painful to palpation without crepitus or subcutaneous emphysema. Patient was empirically started on antibiotics in the ED.Current vitals: 97.6 F, blood pressure 115/85 mmHg, heart rate 78 bpm, tachypneic breathing in the high 40s, SpO2 is 100% on BiPAP with settings 10/5 FiO2 100%. Prognosis is guarded. 09/06/24 - Patient seen at bedside this morning, remaining in the ICU, day 2 of hospitalization, admitted on 09/05/24 and in the ICU since that time. He was placed to mechanical ventilation with intubation yesterday (09/05/24). He is on assist-control with a rate of 20, volume 450, FiO2 40%, PEEP of 5. ABG this morning showed pO2 72, pCO2 34, pH 7.46, indicating respiratory alkalosis with relative hypoxemia. Initial improvement in his WBCs down to 13.6 (from 14.8) this morning, his hemoglobin decreased to 11.2. His BUN is 138, creatinine 7.61. Increase in AST, 3-4, and ALT, up to 113. Phosphorus 5.0, remaining 9, calcium 6.6, remaining well. Creatinine Kinase remains elevated, showing improvements, to 6149. His procalcitonin returned at > 100. His blood cultures were positive for Enterobacter cloacae without resistance noted, patient placed on cefepime - discontinued Rocephin and Zithromax. Patient remained Levophed at 0.09 mcg/kg/min (7.26 mcg/min) and propofol 40 mcg/kg/min. Blood pressure this morning 113/52. He will be started on vital HP 10 cc/h, with a goal being 37 cc/h. 09/07/24 - Patient seen at bedside today, remaining in the ICU, day 3 of [facility]. Admitted on 09/05/24 and in the ICU since that time. He has been intubated on mechanical ventilation since 09/05/24. He remains on assist- control with a rate of 20, volume 450, FiO2 50% and a PEEP of 8. ABG this morning showed pO2 59, pCO2 34, pH 7.46 which indicated respiratory alkalosis with some metabolic alkalosis - this was done while the patient was on an FiO2 of 40%. At that time, patient's FiO2 was up to 50% and his PEEP was increased to 8, since that time he has been saturating well. This morning his WBCs are 9.9, hemoglobin 10.1, platelet count 76, sodium 134, BUN 88, creatinine 4.68, calcium 6.4 and ionized calcium 3.7. Most recent creatinine kinase 2760. Because of the patient's relative hypocalcemia he received 1 g of calcium gluconate. The CVP has been slightly elevated since its insertion, at the time of insertion read ~9, however when seen the patient it was reading 6 indicated the patient is likely euvolemic. Patient remains on Levophed 0.01 mcg/kg/min (8 mcg/min), and on propofol 40 mcg/kg/min and vital HP at 30 cc/h (goal of 37 cc/h). He remains on cefepime and lactated ringer 100 cc/h. His urine was positive, preliminarily, for gram-negative bacilli. Preliminary results of blood culture showed Enterobacter cloacae and Serratia marcescens. 09/08/24 - Patient seen at bedside today, remaining in the ICU, day 4 of hospitalization. Admitted on 09/05/24 and in the ICU since that time. He has been intubated and mechanically ventilated since 09/05/24. He remains on assist-control with a rate of 20, volume 450, FiO2 50% and PEEP of 8. ABG done this morning showed pO2 60, pCO2 32, pH 7.45 indicating a respiratory alkalosis with some evidence of metabolic alkalosis. Patient uneventful overnight. WBCs 10.2, hemoglobin 9.4, sodium 133, BUN 63, creatinine 3.91, calcium 6.7. Patient CVP has been elevated, most recently at 12, indicating some possible hypervolemia. Patient allan on propofol 30 mcg/kg/min, Levophed 0.23 mcg/kg/min (~19 mcg/min), and cefepime. Patient's hemodialysis yesterday, 500 cc was removed. Per the hemodialysis nurse, patient's blood pressure dropped at the start of treatment, leading to pressors being increased at that time. Urine culture now final, positive for Enterobacter cloacae. Blood culture remains preliminary at this time for Enterobacter cloacae and Serratia marcescens. The patient is seen today September 09, 2024 in follow-up in the intensive care unit. He remains intubated on the mechanical ventilator and assist-control mode at a rate of 20, tidal volume 450, FiO2 50% and a PEEP of 8. Morning blood gases revealed a PaO2 of 86, pCO2 33 and a pH of 7.45. He is currently on norep inephrine at 27 mcg/min. Vasopressin at 0.03 units/min. Propofol at 30 mcg/kg/min. Lactated Ringer's at 10 mL/h. Receiving vital HP at 37 mL/h which is goal. He remains on cefepime for Enterobacter Cloacae in the urine. Enterobacter Cloacae and Serratia marcescens in the blood. Have a Tmax last night of 103.4. Currently 99.4. White count 13.5. Hemoglobin 9.6. Platelets 119. Sodium 133. Potassium 3.9. Bicarb 21. BUN 59. Creatinine 3.35. Glucose 245. He is continued on DuoNeb and elations. Heparin for DVT prophylaxis. Remains on Levemir and Lovenox sliding scale. He is currently in a +1.8 L balance. Chest x-ray shows persistent mild to moderate central vascular congestion bilaterally. He has been receiving hemodialysis. On 09/10/2024, the patient is being seen for a follow-up. Remains intubated on the mechanical ventilator. This morning, the patient is on propofol running at 30 mcg/kg/min. He is calm and comfortable and synchronous on mechanical ventilator. He is on assist-control mode of mechanical ventilation at rate of 20, tidal volume of 450, FiO2 of 50% with a PEEP of 5. His chest x-ray from today showing pulmonary vascular congestion and possibly some small bilateral pleural effusion. ET tube is around 4 cm above the nicol. No airspace disease or any consolidations noted. The pH is at 7.39 with a pCO2 of 34 and pO2 of 62. The patient is currently on pressors and is on norepinephrine running at 0.13 mcg/kg/min and he is also on vasopressin physiologic dose regarding his underlying gram-negative sepsis. Antibiotic coverage with IV cefepime for now. Afebrile, urine output is in the order of 5 cc an hour as the patient has developed an acute on top of chronic kidney injury and the fluid balance over the past 24 hours is +2.0 L. The patient is undergoing hemodialysis for now. Hemodialysis catheter is in the right femoral vein. His last hemodialysis session was on 09/09/2024 and another session of hemodialysis is to be done today. The patient blood work from today shows a WBC count of 11.3 with a hemoglobin of 9.7 and a platelet count of 116. Sodium is at 131, bicarb is at 18, potassium is at 4.4, BUN is 81 with a creatinine of 3.8. His liver function tests have improved including a drop in the AST and ALT. Alkaline phosphatase is also down to 218. Albumin is at 1.8 with a total protein of 4.4. As stated earlier, the cultures were positive for Enterobacter in his urine and blood. The blood also showed Serratia marcescens. His echocardiogram done during this current admission shows impaired LV function with an ejection fraction of 30% and there is global decrease in the contractility probably due to his underlying sepsis. He is receiving enteral feeding for nutritional support and is currently on THP vital HP vital HP at a rate of 37 cc an hour. IVF are KVO. On 09/11/2024, the patient is being seen in follow-up in the intensive care unit. The patient remains intubated on the mechanical ventilator. This morning, the patient is on propofol running at 50 mcg/kg/min. Earlier this morning, a blood gas was done as the patient was on a assist-control mode at a rate of 20 with a tidal volume of 450 and FiO2 of 50% with a PEEP of 8. The patient was found to be hypoxic with a pH of 7.41 with a pCO2 of 34 and pO2 54. The PEEP accordingly was brought up to 12. Current pulse ox is around 92 to 93%. The patient is still having episodes of fever. Remains septic and the patient remains on pressors and the patient is currently on norepinephrine running with 0.13 mcg/kg/min and vasopressin at 0.03 units. The patient is on IV cefepime. A CAT scan of the abdomen and pelvis was done yesterday and the patient was found to have consolidation in lung bases bilaterally consistent with pneumonia. Based on that, I recommended broadening his antibiotic coverage. Noted the patient was also supposed to undergo hemodialysis yesterday. He did have a problem with his hemodialysis catheter and the dial ysis was not successful. Based on that, the catheter was exchanged and the patient was given another dialysis catheter in his left femoral vein today. Hemodialysis to follow today. The patient remains on vital high-protein for enteral feeding and titrate support at rate of 48 cc an hour. Meanwhile, he is white cell count of 12.6 with a hemoglobin 8.9 and platelet count of 155. BUN is 92 with a creatinine of 4.5 and a sodium levels at 1 of 32 and a potassium level is at 4.4. Serum bicarb is 18. Calcium level is at 7.1. LFTs are within normal limits. Sputum samples were sent for culture. Antibiotic modification was done and the patient was taken off the cefepime and the patient was started on a combination of IV Invanz and Vanco mycin. The patient remains on amiodarone 200 mg p.o. twice a day. The patient is on DuoNeb nebulized treatments [id number]. He is receiving Levemir insulin 20 units twice daily and NovoLog sliding scale coverage. On 09/12/2024, the patient remains intubated on mechanical ventilator. No significant change in his condition since yesterday. Noted the patient was given a session of hemodialysis yesterday and is undergoing another session of hemodialysis this morning. The patient remains sedated on propofol. He remains on 50 mcg/kg/min and the patient will be given a sedation holiday to assess his underlying mental status. He remains on the mechanical ventilator assist- control mode with rate of 20, tidal volume of 450, FiO2 55% with a PEEP of 12. Blood gas showed a pH of 7.47 with a pCO2 of 34 and a pO2 of 81. He is still having episodes of fever with a temperature of 101.6. His antibiotics is modified and the patient is currently on a combination of IV Invanz and vancomycin. Pressor requirements have improved since yesterday and the patient is currently on norepinephrine running at 0.04 mcg/kg/min and the patient is on a vasopressin physiologic dose. IV fluids are KVO. He is on vital high-protein at rate of 35 cc an hour. WBC count is 11 with a hemoglobin of 8.4 and a platelet count of 164. Sodium is at 128, BUN is 63 with a creatinine of 3.58. Potassium levels of 4.2. Sputum samples were obtained yesterday and results are still pending for now. Meanwhile, the patient will be kept on the same antibiotic coverage. Remains on Levemir insulin and the patient is on 20 units twice daily and NovoLog sliding scale coverage. On 09/13/2024, the patient's condition is essentially unchanged. The patient remains sedated and the patient remains on propofol which is running at 50 mcg/kg/min. Remains on the mechanical ventilator, this morning is on assist- control rate of 20, tidal volume of 450, FiO2 55% with a PEEP of 12. Most recent blood gas from this morning showed a pH of 7.47 with a pCO2 of 37 and pO2 of 97. The patient has no major respiratory secretions. The sputum sample that was collected earlier was negative. The chest x-ray findings are essentially unchanged and the patient continues to have stable bibasilar atelectatic changes/limited consolidation. In terms of antibiotic coverage, the patient is currently on a combination of Invanz and vancomycin. He is off norepinephrine. Vasopressin is running at physiologic dose of 0.03 units/min. He is having limited diarrhea. He is on vital high-protein at rate of 35 cc an hour. In terms of his blood work, the white cell count is at 9.9 with a hemoglobin 7.3 and a platelet count of 184. BUN is 52 with a creatinine of 2.8 and a sodium levels at 128 and a potassium level is at 4. Vancomycin trough level was 15. Objective - Vital Signs Vital signs: Vital Signs Temp 101.1 F H 09/13/24 04:00 Pulse 71 09/13/24 08:30 Resp 28 H 09/13/24 08:30 BP 138/57 09/12/24 16:30 Pulse Ox 98 09/13/24 08:30 FiO2 55 09/13/24 08:30 Intake & Output 09/12/24 09/13/24 09/13/24 18:59 06:59 18:59 Intake Total 2029.811 850.937 83 Output Total 3420 20 10 Balance -1390.189 830.937 73 Weight 91.1 kg Intake: IV 706 192 48 Ertapenem 0.5 gm In 50 Sodium Chloride 0.9% 50 ml @ 100 mls/hr IVPB Q24H [facility] Rx#:[id number] LR 90 120 30 Vancomycin 1,500 mg In 500 Sodium Chloride 0.9% 500 ml 500 ml @ 167 mls/hr IVPB ONCE ONE Rx#: [id number] a line + CVP 66 72 18 Intake, IV Titration 418.811 148.937 Amount Norepinephrine 8 mg In 89.292 49.187 Sodium Chloride 0.9% 250 ml @ 0.03 MCG/KG/MIN 4. 737 mls/hr IV .Q24H [facility] Rx#:[id number] Vasopressin 60 unit In 124.619 Sodium Chloride 0.9% 150 ml @ 0.03 UNITS/MIN 4.59 mls/hr IV .Q24H [facility] Rx#: [id number] propofoL 1,000 mg In 204.90 99.75 Empty Bag 1 bag @ 15 MCG/ KG/MIN 6.75 mls/hr IV . [id number] [facility] Rx#:[id number] Tube Feeding 385 420 35 Hemodialysis 400 Other 120 90 Output: Urine 20 20 10 Hemodialysis 1900 Hemodialysis Net Amount 1500 Other: Voiding Method Indwelling Catheter Indwelling Catheter ABP, PAP, CO, CI - Last Documented Arterial Blood Pressure 125/51 - Exam GENERAL EXAM: Intubated, sedated 64-year-old male patient on the mechanical ventilator, in no apparent distress. Calm and comfortable, sedated on propofol HEAD: Normocephalic. EYES: Normal reaction of pupils, equal size. NOSE: Clear with pink turbinates. THROAT: Oral endotracheal and gastric tube secured in place. No erythema or exudates. NECK: No masses, no JVD.left IJ tripple lumen and tight radial art line and a right femeral HD cath. CHEST: No chest wall deformity. LUNGS: Equal air entry with coarse scattered rhonchi. CVS: Distant heart tones. S1 and S2 normal with no audible murmur, regular rhythm. ABDOMEN: No hepatosplenomegaly, normal bowel sounds, no guarding or rigidity. SPINE: No scoliosis or deformity SKIN: No rashes CENTRAL NERVOUS SYSTEM: No focal deficits, tone is normal in all 4 extremities. EXTREMITIES: There is 1+ peripheral edema. No clubbing, no cyanosis. Peripheral pulses are intact. - Labs CBC & Chem 7: 09/13/24 05:27 09/13/24 05:27 Labs: Abnormal Lab Results - Last 24 Hours (Table) 09/12/24 09/12/24 09/13/24 Range/Units 11:59 18:51 05:27 RBC 2.43 L (4.30-5.90) m/uL Hgb 7.3 L (13.0-17.5) gm/dL Hct 21.5 L (39.0-53.0) % RDW 15.8 H (11.5-15.5) % Neutrophils # 8.1 H (1.3-7.7) k/uL Lymphocytes # 0.8 L (1.0-4.8) k/uL ABG pH (7.35-7.45) ABG HCO3 (21-25) mmol/L ABG Total CO2 (19-24) mmol/L ABG O2 Saturation (94-97) % Hemoglobin (13.0-17.5) gm/dL Sodium (137-145) mmol/L BUN (9-20) mg/dL Creatinine (0.66-1.25) mg/dL Glucose (74-99) mg/dL POC Glucose (mg/dL) 177 H 150 H (70-110) mg/dL Calcium (8.4-10.2) mg/dL 09/13/24 09/13/24 09/13/24 Range/Units 05:27 05:29 06:03 RBC (4.30-5.90) m/uL Hgb (13.0-17.5) gm/dL Hct (39.0-53.0) % RDW (11.5-15.5) % Neutrophils # (1.3-7.7) k/uL Lymphocytes # (1.0-4.8) k/uL ABG pH 7.47 H (7.35-7.45) ABG HCO3 27 H (21-25) mmol/L ABG Total CO2 28 H (19-24) mmol/L ABG O2 Saturation 98.0 H (94-97) % Hemoglobin 7.2 L (13.0-17.5) gm/dL Sodium 128 L (137-145) mmol/L BUN 52 H (9-20) mg/dL Creatinine 2.83 H (0.66-1.25) mg/dL Glucose 141 H (74-99) mg/dL POC Glucose (mg/dL) 165 H (70-110) mg/dL Calcium 7.4 L (8.4-10.2) mg/dL Microbiology - Last 24 Hours (Table) 09/11/24 10:45 Gram Stain - Final Sputum Sputum Culture - Final Assessment and Plan Plan: Acute hypoxic respiratory failure, requiring mechanical ventilation and intubation on 09/05/24. Respiratory failure is multifactorial. The patient presented with significant metabolic derangements, acute on top of chronic renal failure, sepsis and decompensated heart failure. Remains intubated on mec hanical ventilator and the chest x-ray is consistent with CHF.Repeat chest x-ray from today shows stable findings with scattered infiltrates that are unchanged. Patient has lower lobe consolidation suggestive of pneumonia. The patient is currently on a combination of IV Invanz and vancomycin. The blood gases are stable from today. The patient remains intubated on the mechanical ventilator with ongoing respiratory support. Sputum samples are negative. Limited improvement in oxygenation on today's blood gas. Chest x-ray findings are stable. Bilateral lower lobe pneumonia, this is a hospital-acquired Episodes of fever Acute rhabdomyolysis, resolved, and the CPK levels have been downtrending Acute on top of chronic kidney disease. The patient is known to have stage 3 chronic kidney disease and the patient developed an acute kidney injury/ATN, currently on hemodialysis, femoral hemodialysis catheter was placed on the left femoral vein and the patient has undergone hemodialysis on 09/11/2024 and 09/12/2024 Systolic heart failure with an ejection fraction of 30% Elevated troponins, in setting of acute renal failure Sepsis, secondary to urinary tract infection. Noted Enterobacter cloacae was cultured in the urine and the blood and the blood culture is also positive for Serratia marcescens. The patient is on IV antibiotics patient remains on a combination of norepinephrine and vasopressin for hemodynamic support. 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 Discontinue the vasopressin. CAT scan of the abdomen and pelvis was noted Continue Levemir insulin 20 units twice daily along with a sliding scale coverage Amiodarone 200 mg p.o. twice a day Dilaudid for pain control Continue bronchodilators Heparin for DVT prophylaxis Continue hemodialysis per nephrology, hemodialysis to be done today Monitor diarrhea and check stool for C. difficile. Enteral feeding for nutritional support and the patient is currently on vital HP Give the patient a sedation holiday and assess mental status We will continue to follow and make further recommendations based on his clinical status Not ready for weaning at this point in time due to above-mentioned comorbidities. Evaluation was done more than 30 minutes and this is a critical care evaluation I had a lengthy discussion with the sister at the bedside. Long-term prognosis poor based on above-mentioned comorbidities. Time with Patient: Greater than 30
[2024-09-13 18:25] LABS: Glucose,Whole Blood 133 mg/dL (70-110)
[2024-09-13 23:33] LABS: Glucose,Whole Blood 113 mg/dL (70-110)
--- NOTE | 2024-09-14 05:52 | PN ---
PROGRESS NOTE DATE OF SERVICE: 09/13/2024 SUBJECTIVE: This is a 64-year-old gentleman, who was admitted with metabolic encephalopathy, sepsis, UTI, rhabdomyolysis, also had respiratory failure and renal failure. The patient has hemodialysis, about 1.5 L of fluid out every day. Blood sugars have been in 200s. The patient is also on pressor support. Vasopressor has been tapered off. The patient is jaundiced also. PAST MEDICAL HISTORY: Reviewed. REVIEW OF SYSTEMS: Could not be taken. CURRENT MEDICATIONS: Reviewed. PHYSICAL EXAMINATION: VITAL SIGNS: Pulse is 75, blood pressure 124/50, respirations 25. HEENT: Conjunctivae normal. CARDIOVASCULAR: S1, S2. RESPIRATIONS: A few scattered rhonchi. ABDOMEN: Soft. LEGS: No edema. No swelling. NERVOUS SYSTEM: Nonfocal. LABORATORY DATA: Reviewed. Creatinine is 2.83. ASSESSMENT: 1. Enterobacter cloacae, sepsis with urinary tract infection. 2. Acute respiratory failure, on mechanical ventilation. 3. Acute on chronic renal failure, on hemodialysis. 4. Acute diabetic ketoacidosis present on admission. 5. Rhabdomyolysis, present on admission. 6. Diabetes mellitus, type 2. 7. Hyperlipidemia. 8. Bilateral pneumonia. 9. Jaundice and liver failure. RECOMMENDATIONS AND DISCUSSION: I recommend to continue current medications, continue symptomatic treatment. The most recent LFTs are unknown. The bilirubin was showing a diminishing tendency previously. Avoid hepatotoxic medications. Guarded prognosis because of multiple complex medical issues. Further recommendations to follow. C diff is negative. MMODL / IJN: [id number] /
[2024-09-14 05:54] LABS: ABG Base Excess 5.3 mmol/L; ABG HCO3 29 mmol/L (21-25); ABG Oxygen Saturation 96.9 % (94-97); ABG PCO2 38 mmHg (35-45); ABG PH 7.49 (7.35-7.45); ABG PO2 78 mmHg (83-108); ABG TCO2 30 mmol/L (19-24); Allen Test Performed? Yes
[2024-09-14 06:01] LABS: Basophils % (A) 0 %; Eosinophils # (A) 0.1 k/uL (0-0.7); Eosinophils % (A) 1 %; HCT 21.9 % (39.0-53.0); HGB 7.9 gm/dL (13.0-17.5); Lymphocytes % (A) 9 %; MCH 32.3 pg (25.0-35.0); MCHC 36.1 g/dL (31.0-37.0); MCV 89.4 fL (80.0-100.0); Mean Platelet Volume 9.7; Monocytes # (A) 0.4 k/uL (0-1.0); Monocytes % (A) 4 %; Neutrophils # (A) 8.2 k/uL (1.3-7.7); Neutrophils % (A) 81 %; Platelet Count 232 k/uL (150-450); RBC 2.45 m/uL (4.30-5.90); RDW 15.2 % (11.5-15.5); WBC 10.2 k/uL (3.8-10.6)
[2024-09-14 06:12] LABS: Glucose,Whole Blood 90 mg/dL (70-110)
[2024-09-14 06:30] LABS: ALT 39 U/L (4-49); AST 77 U/L (17-59); African American GFR (CKD) 28 (>60 ml/min/1.73 sqM); Albumin 1.9 g/dL (3.5-5.0); Alkaline Phosphatase 237 U/L (38-126); Anion Gap 5 mmol/L; Blood Urea Nitrogen 48 mg/dL (9-20); Calcium 7.2 mg/dL (8.4-10.2); Carbon Dioxide 27 mmol/L (22-30); Chloride 96 mmol/L (98-107); Glucose 75 mg/dL (74-99); Non-African American GFR(CKD) 24 (>60 ml/min/1.73 sqM); Potassium 3.9 mmol/L (3.5-5.1); Sodium 128 mmol/L (137-145); Total Bilirubin 6.8 mg/dL (0.2-1.3); Total Protein 5.1 g/dL (6.3-8.2)
[2024-09-14 06:56] LABS: Vancomycin,Random 23.8 ug/mL
--- NOTE | 2024-09-14 08:26 | XR ---
EXAMINATION TYPE: XR chest 1V portable DATE OF EXAM: 09/14/2024 6:26 AM COMPARISON: 09/13/2024 CLINICAL INDICATION: Male, 64 years old with history of mechanical ventilation, FINDINGS: Indwelling tubes and catheters are unchanged. No change in bibasilar opacities. Stable appearance of the cardio-mediastinal structures at this time. Pleural effusion unchanged. IMPRESSION: 1. Stable portable chest. Clinical correlation and follow up until resolution is recommended. [facility], , 09/14/2024 8:24 AM
[2024-09-14] MEDS: ACETAMINOPHEN TAB 325 MG TAB PO PRN (10:54)
[2024-09-14 10:55] LABS: Glucose,Whole Blood 154 mg/dL (70-110)
[2024-09-14 11:10] LABS: Glucose,Whole Blood 115 mg/dL (70-110)
--- NOTE | 2024-09-14 11:22 | P.PN ---
Subjective Patient is seen in follow-up for acute kidney injury on chronic kidney disease. Started on hemodialysis September 06, 2024 via right femoral catheter. Catheter was not functioning well and new catheter was placed September 11, 2024. On Levophed. Oliguric. Intubated. Tolerated 1.5 L ultrafiltration yesterday. Receiving tube feeds. Vital signs are stable. On vasopressor support. General: Resting in bed. HEENT: Intubated. LUNGS: Scattered rhonchi. HEART: Rate and Rhythm are regular. ABDOMEN: No distention. EXTREMITITES: 1+ edema. Scrotal edema noted. Objective - Vital Signs Vital signs: Vital Signs Temp 102.2 F H 09/14/24 09:45 Pulse 77 09/14/24 10:00 Resp 27 H 09/14/24 10:00 BP 136/61 09/14/24 08:00 Pulse Ox 95 09/14/24 10:00 FiO2 40 09/14/24 10:00 Intake & Output 09/13/24 09/14/24 09/14/24 18:59 06:59 18:59 Intake Total 1232.932 780.739 201.423 Output Total 3410 15 5 Balance -2177.068 765.739 196.423 Weight 90.5 kg Intake: IV 192 192 64 LR 120 120 40 a line + CVP 72 72 24 Intake, IV Titration 200.932 78.739 37.423 Amount Norepinephrine 8 mg In 57.028 78.739 37.423 Sodium Chloride 0.9% 250 ml @ 0.03 MCG/KG/MIN 4. 737 mls/hr IV .Q24H [facility] Rx#:[id number] Vasopressin 60 unit In 74.716 Sodium Chloride 0.9% 150 ml @ 0.03 UNITS/MIN 4.59 mls/hr IV .Q24H [facility] Rx#: [id number] propofoL 1,000 mg In 69.188 Empty Bag 1 bag @ 15 MCG/ KG/MIN 6.75 mls/hr IV . [id number] [facility] Rx#:[id number] Tube Feeding 350 420 70 Hemodialysis 400 Other 90 90 30 Output: Urine 10 15 5 Hemodialysis 1900 Hemodialysis Net Amount 1500 Other: Voiding Method Indwelling Catheter Indwelling Catheter # Bowel Movements 0 0 0 ABP, PAP, CO, CI - Last Documented Arterial Blood Pressure 137/53 - Labs CBC & Chem 7: 09/14/24 05:30 09/14/24 05:30 Labs: Abnormal Lab Results - Last 24 Hours (Table) 09/12/24 09/13/24 09/13/24 Range/Units 23:41 11:23 16:51 RBC (4.30-5.90) m/uL Hgb (13.0-17.5) gm/dL Hct (39.0-53.0) % Neutrophils # (1.3-7.7) k/uL ABG pH (7.35-7.45) ABG pO2 (83-108) mmHg ABG HCO3 (21-25) mmol/L ABG Total CO2 (19-24) mmol/L Hemoglobin (13.0-17.5) gm/dL Sodium (137-145) mmol/L Chloride (98-107) mmol/L BUN (9-20) mg/dL Creatinine (0.66-1.25) mg/dL POC Glucose (mg/dL) 154 H 118 H 134 H (70-110) mg/dL Calcium (8.4-10.2) mg/dL Total Bilirubin (0.2-1.3) mg/dL AST (17-59) U/L Alkaline Phosphatase (38-126) U/L Total Protein (6.3-8.2) g/dL Albumin (3.5-5.0) g/dL 09/13/24 09/13/24 09/14/24 Range/Units 18:23 23:32 05:30 RBC 2.45 L (4.30-5.90) m/uL Hgb 7.9 L (13.0-17.5) gm/dL Hct 21.9 L (39.0-53.0) % Neutrophils # 8.2 H (1.3-7.7) k/uL ABG pH (7.35-7.45) ABG pO2 (83-108) mmHg ABG HCO3 (21-25) mmol/L ABG Total CO2 (19-24) mmol/L Hemoglobin (13.0-17.5) gm/dL Sodium (137-145) mmol/L Chloride (98-107) mmol/L BUN (9-20) mg/dL Creatinine (0.66-1.25) mg/dL POC Glucose (mg/dL) 133 H 113 H (70-110) mg/dL Calcium (8.4-10.2) mg/dL Total Bilirubin (0.2-1.3) mg/dL AST (17-59) U/L Alkaline Phosphatase (38-126) U/L Total Protein (6.3-8.2) g/dL Albumin (3.5-5.0) g/dL 09/14/24 09/14/24 09/14/24 Range/Units 05:30 05:50 11:09 RBC (4.30-5.90) m/uL Hgb (13.0-17.5) gm/dL Hct (39.0-53.0) % Neutrophils # (1.3-7.7) k/uL ABG pH 7.49 H (7.35-7.45) ABG pO2 78 L (83-108) mmHg ABG HCO3 29 H (21-25) mmol/L ABG Total CO2 30 H (19-24) mmol/L Hemoglobin 7.3 L (13.0-17.5) gm/dL Sodium 128 L (137-145) mmol/L Chloride 96 L (98-107) mmol/L BUN 48 H (9-20) mg/dL Creatinine 2.69 H (0.66-1.25) mg/dL POC Glucose (mg/dL) 115 H (70-110) mg/dL Calcium 7.2 L (8.4-10.2) mg/dL Total Bilirubin 6.8 H (0.2-1.3) mg/dL AST 77 H (17-59) U/L Alkaline Phosphatase 237 H (38-126) U/L Total Protein 5.1 L (6.3-8.2) g/dL Albumin 1.9 L (3.5-5.0) g/dL Microbiology - Last 24 Hours (Table) 09/12/24 18:57 Blood Culture - Preliminary Blood 09/11/24 10:45 Gram Stain - Final Sputum Sputum Culture - Final Assessment and Plan Plan: Assessment: 1. Acute kidney injury secondary to ATN secondary to septic shock. Oliguric. No hydronephrosis noted on imaging. Started on hemodialysis September 06, 2024 via right femoral catheter; left femoral catheter was placed September 11, 2024. 2. Chronic kidney disease stage IIIb with baseline creatinine 1.8-2 secondary to diabetic kidney disease. 3. Septic shock with blood cultures positive for Enterobacter and Serratia and urine culture positive for Enterobacter. On antibiotics. 4. Metabolic acidosis secondary to acute kidney injury. Improved. 5. Diabetes mellitus. 6. Rhabdomyolysis. CK levels trending down. CK level 680 dated September 10, 2024. 7. Acute hypoxic respiratory failure. Intubated. 8. History of right renal mass not clearly seen on ultrasound this admission. Will need to see urology outpatient. 9. Volume overload. Improving with daily ultrafiltration. 10. Hypervolemic hyponatremia. 11. Anemia of chronic kidney disease. On Aranesp. Plan: Daily dialysis for now due to volume overload. No response in urine output status post IV Lasix given September 11, 2024. Maintain tube feeds. Wean FiO2 and vasopressors. Continue to monitor renal function and urine output. Phosphorus level 4.0 dated September 12, 2024. Off sedation.
--- NOTE | 2024-09-14 14:05 | P.PN ---
Subjective Progress Note Date: 09/14/24 Patient is a 64-year-old male with past medical history significant for diabetes mellitus, chronic kidney disease, hyperlipidemia, hypertension, among other things. Patient is currently in the intensive care unit, he is a poor historian. Unable to provide reliable history. The ER provider did not contact me. Per the ER documentation, patient was found on the ground for an unknown known amount of time, last seen well 2 weeks prior by his sister. He was found to be in acute rhabdomyolysis with acute renal failure. He was also found with elevated blood sugars. CT of the brain and C-spine without contrast showing no acute intracranial process and no acute osseous abnormalities of the C-spine. Initial labs include a CBC: WBC count 17.3, hemoglobin 14.6, hematocrit 45.1, platelets 226. CMP: Sodium 136, potassium 5.7, chloride 95, serum bicarb 14, BUN 137, creatinine 8.82, glucose 578. Lactic 1.5. Magnesium 2.7. LFTs mildly elevated. Troponin 0.043. NT proBNP 4510. EKG: normal sinus rhythm, rate 88 bpm, incomplete RBB pattern, without obvious acute ischemic changes. Urine drug screen unremarkable. Serum ETOH < 10. Currently evaluating this patient in the intensive care unit. CPK was 7555 on arrival. Did receive 1.5 L normal saline bolus in in ED and started on normal saline at 130 ml/hr. Subsequently started on sodium bicarbonate infusion 3 A in D5W at 100 mL/h. urine output is in the order of 30 to 50 cc/h. Nephrology is managing. Repeat potassium is down to 4.7. On arrival blood glucose 578, serum bicarb 12, anion gap 27, acetone positive. Patient has also been started on insulin infusion Per protocol. He did develop some respiratory distress, breathing in the high 40s. I did ask for the pateint to be placed on BiPAP with settings 10/5 and FiO2 to be titrated a ppropriately. Chest x-ray showing cardiomegaly. There is a left midlung linear infiltrates concerning for atelectasis or early pneumonia. Patient does have bruising to his left lateral chest. It is painful to palpation without crepitus or subcutaneous emphysema. Patient was empirically started on antibiotics in the ED.Current vitals: 97.6 F, blood pressure 115/85 mmHg, heart rate 78 bpm, tachypneic breathing in the high 40s, SpO2 is 100% on BiPAP with settings 10/5 FiO2 100%. Prognosis is guarded. 09/06/24 - Patient seen at bedside this morning, remaining in the ICU, day 2 of hospitalization, admitted on 09/05/24 and in the ICU since that time. He was placed to mechanical ventilation with intubation yesterday (09/05/24). He is on assist-control with a rate of 20, volume 450, FiO2 40%, PEEP of 5. ABG this morning showed pO2 72, pCO2 34, pH 7.46, indicating respiratory alkalosis with relative hypoxemia. Initial improvement in his WBCs down to 13.6 (from 14.8) this morning, his hemoglobin decreased to 11.2. His BUN is 138, creatinine 7.61. Increase in AST, 3-4, and ALT, up to 113. Phosphorus 5.0, remaining 9, calcium 6.6, remaining well. Creatinine Kinase remains elevated, showing improvements, to 6149. His procalcitonin returned at > 100. His blood cultures were positive for Enterobacter cloacae without resistance noted, patient placed on cefepime - discontinued Rocephin and Zithromax. Patient remained Levophed at 0.09 mcg/kg/min (7.26 mcg/min) and propofol 40 mcg/kg/min. Blood pressure this morning 113/52. He will be started on vital HP 10 cc/h, with a goal being 37 cc/h. 09/07/24 - Patient seen at bedside today, remaining in the ICU, day 3 of [facility]. Admitted on 09/05/24 and in the ICU since that time. He has been intubated on mechanical ventilation since 09/05/24. He remains on assist- control with a rate of 20, volume 450, FiO2 50% and a PEEP of 8. ABG this morning showed pO2 59, pCO2 34, pH 7.46 which indicated respiratory alkalosis with some metabolic alkalosis - this was done while the patient was on an FiO2 of 40%. At that time, patient's FiO2 was up to 50% and his PEEP was increased to 8, since that time he has been saturating well. This morning his WBCs are 9.9, hemoglobin 10.1, platelet count 76, sodium 134, BUN 88, creatinine 4.68, calcium 6.4 and ionized calcium 3.7. Most recent creatinine kinase 2760. Because of the patient's relative hypocalcemia he received 1 g of calcium gluconate. The CVP has been slightly elevated since its insertion, at the time of insertion read ~9, however when seen the patient it was reading 6 indicated the patient is likely euvolemic. Patient remains on Levophed 0.01 mcg/kg/min (8 mcg/min), and on propofol 40 mcg/kg/min and vital HP at 30 cc/h (goal of 37 cc/h). He remains on cefepime and lactated ringer 100 cc/h. His urine was positive, preliminarily, for gram-negative bacilli. Preliminary results of blood culture showed Enterobacter cloacae and Serratia marcescens. 09/08/24 - Patient seen at bedside today, remaining in the ICU, day 4 of hospitalization. Admitted on 09/05/24 and in the ICU since that time. He has been intubated and mechanically ventilated since 09/05/24. He remains on assist-control with a rate of 20, volume 450, FiO2 50% and PEEP of 8. ABG done this morning showed pO2 60, pCO2 32, pH 7.45 indicating a respiratory alkalosis with some evidence of metabolic alkalosis. Patient uneventful overnight. WBCs 10.2, hemoglobin 9.4, sodium 133, BUN 63, creatinine 3.91, calcium 6.7. Patient CVP has been elevated, most recently at 12, indicating some possible hypervolemia. Patient allan on propofol 30 mcg/kg/min, Levophed 0.23 mcg/kg/min (~19 mcg/min), and cefepime. Patient's hemodialysis yesterday, 500 cc was removed. Per the hemodialysis nurse, patient's blood pressure dropped at the start of treatment, leading to pressors being increased at that time. Urine culture now final, positive for Enterobacter cloacae. Blood culture remains preliminary at this time for Enterobacter cloacae and Serratia marcescens. The patient is seen today September 09, 2024 in follow-up in the intensive care unit. He remains intubated on the mechanical ventilator and assist-control mode at a rate of 20, tidal volume 450, FiO2 50% and a PEEP of 8. Morning blood gases revealed a PaO2 of 86, pCO2 33 and a pH of 7.45. He is currently on norep inephrine at 27 mcg/min. Vasopressin at 0.03 units/min. Propofol at 30 mcg/kg/min. Lactated Ringer's at 10 mL/h. Receiving vital HP at 37 mL/h which is goal. He remains on cefepime for Enterobacter Cloacae in the urine. Enterobacter Cloacae and Serratia marcescens in the blood. Have a Tmax last night of 103.4. Currently 99.4. White count 13.5. Hemoglobin 9.6. Platelets 119. Sodium 133. Potassium 3.9. Bicarb 21. BUN 59. Creatinine 3.35. Glucose 245. He is continued on DuoNeb and elations. Heparin for DVT prophylaxis. Remains on Levemir and Lovenox sliding scale. He is currently in a +1.8 L balance. Chest x-ray shows persistent mild to moderate central vascular congestion bilaterally. He has been receiving hemodialysis. On 09/10/2024, the patient is being seen for a follow-up. Remains intubated on the mechanical ventilator. This morning, the patient is on propofol running at 30 mcg/kg/min. He is calm and comfortable and synchronous on mechanical ventilator. He is on assist-control mode of mechanical ventilation at rate of 20, tidal volume of 450, FiO2 of 50% with a PEEP of 5. His chest x-ray from today showing pulmonary vascular congestion and possibly some small bilateral pleural effusion. ET tube is around 4 cm above the nicol. No airspace disease or any consolidations noted. The pH is at 7.39 with a pCO2 of 34 and pO2 of 62. The patient is currently on pressors and is on norepinephrine running at 0.13 mcg/kg/min and he is also on vasopressin physiologic dose regarding his underlying gram-negative sepsis. Antibiotic coverage with IV cefepime for now. Afebrile, urine output is in the order of 5 cc an hour as the patient has developed an acute on top of chronic kidney injury and the fluid balance over the past 24 hours is +2.0 L. The patient is undergoing hemodialysis for now. Hemodialysis catheter is in the right femoral vein. His last hemodialysis session was on 09/09/2024 and another session of hemodialysis is to be done today. The patient blood work from today shows a WBC count of 11.3 with a hemoglobin of 9.7 and a platelet count of 116. Sodium is at 131, bicarb is at 18, potassium is at 4.4, BUN is 81 with a creatinine of 3.8. His liver function tests have improved including a drop in the AST and ALT. Alkaline phosphatase is also down to 218. Albumin is at 1.8 with a total protein of 4.4. As stated earlier, the cultures were positive for Enterobacter in his urine and blood. The blood also showed Serratia marcescens. His echocardiogram done during this current admission shows impaired LV function with an ejection fraction of 30% and there is global decrease in the contractility probably due to his underlying sepsis. He is receiving enteral feeding for nutritional support and is currently on THP vital HP vital HP at a rate of 37 cc an hour. IVF are KVO. On 09/11/2024, the patient is being seen in follow-up in the intensive care unit. The patient remains intubated on the mechanical ventilator. This morning, the patient is on propofol running at 50 mcg/kg/min. Earlier this morning, a blood gas was done as the patient was on a assist-control mode at a rate of 20 with a tidal volume of 450 and FiO2 of 50% with a PEEP of 8. The patient was found to be hypoxic with a pH of 7.41 with a pCO2 of 34 and pO2 54. The PEEP accordingly was brought up to 12. Current pulse ox is around 92 to 93%. The patient is still having episodes of fever. Remains septic and the patient remains on pressors and the patient is currently on norepinephrine running with 0.13 mcg/kg/min and vasopressin at 0.03 units. The patient is on IV cefepime. A CAT scan of the abdomen and pelvis was done yesterday and the patient was found to have consolidation in lung bases bilaterally consistent with pneumonia. Based on that, I recommended broadening his antibiotic coverage. Noted the patient was also supposed to undergo hemodialysis yesterday. He did have a problem with his hemodialysis catheter and the dial ysis was not successful. Based on that, the catheter was exchanged and the patient was given another dialysis catheter in his left femoral vein today. Hemodialysis to follow today. The patient remains on vital high-protein for enteral feeding and titrate support at rate of 48 cc an hour. Meanwhile, he is white cell count of 12.6 with a hemoglobin 8.9 and platelet count of 155. BUN is 92 with a creatinine of 4.5 and a sodium levels at 1 of 32 and a potassium level is at 4.4. Serum bicarb is 18. Calcium level is at 7.1. LFTs are within normal limits. Sputum samples were sent for culture. Antibiotic modification was done and the patient was taken off the cefepime and the patient was started on a combination of IV Invanz and Vanco mycin. The patient remains on amiodarone 200 mg p.o. twice a day. The patient is on DuoNeb nebulized treatments [id number]. He is receiving Levemir insulin 20 units twice daily and NovoLog sliding scale coverage. On 09/12/2024, the patient remains intubated on mechanical ventilator. No significant change in his condition since yesterday. Noted the patient was given a session of hemodialysis yesterday and is undergoing another session of hemodialysis this morning. The patient remains sedated on propofol. He remains on 50 mcg/kg/min and the patient will be given a sedation holiday to assess his underlying mental status. He remains on the mechanical ventilator assist- control mode with rate of 20, tidal volume of 450, FiO2 55% with a PEEP of 12. Blood gas showed a pH of 7.47 with a pCO2 of 34 and a pO2 of 81. He is still having episodes of fever with a temperature of 101.6. His antibiotics is modified and the patient is currently on a combination of IV Invanz and vancomycin. Pressor requirements have improved since yesterday and the patient is currently on norepinephrine running at 0.04 mcg/kg/min and the patient is on a vasopressin physiologic dose. IV fluids are KVO. He is on vital high-protein at rate of 35 cc an hour. WBC count is 11 with a hemoglobin of 8.4 and a platelet count of 164. Sodium is at 128, BUN is 63 with a creatinine of 3.58. Potassium levels of 4.2. Sputum samples were obtained yesterday and results are still pending for now. Meanwhile, the patient will be kept on the same antibiotic coverage. Remains on Levemir insulin and the patient is on 20 units twice daily and NovoLog sliding scale coverage. On 09/13/2024, the patient's condition is essentially unchanged. The patient remains sedated and the patient remains on propofol which is running at 50 mcg/kg/min. Remains on the mechanical ventilator, this morning is on assist- control rate of 20, tidal volume of 450, FiO2 55% with a PEEP of 12. Most recent blood gas from this morning showed a pH of 7.47 with a pCO2 of 37 and pO2 of 97. The patient has no major respiratory secretions. The sputum sample that was collected earlier was negative. The chest x-ray findings are essentially unchanged and the patient continues to have stable bibasilar atelectatic changes/limited consolidation. In terms of antibiotic coverage, the patient is currently on a combination of Invanz and vancomycin. He is off norepinephrine. Vasopressin is running at physiologic dose of 0.03 units/min. He is having limited diarrhea. He is on vital high-protein at rate of 35 cc an hour. In terms of his blood work, the white cell count is at 9.9 with a hemoglobin 7.3 and a platelet count of 184. BUN is 52 with a creatinine of 2.8 and a sodium levels at 128 and a potassium level is at 4. Vancomycin trough level was 15. On 09/14/2024, the patient is being seen for a follow-up. The patient is off sedation since yesterday. He is not following commands. Not opening his eyes. Only grimaces to deep painful stimulation. Will continue monitoring his mental status. He remains on mechanical ventilator, assist-control mode rate of 20, t idal volume of 450, FiO2 40% with a PEEP of 10. The blood gas showed a pH of 7.49 with a pCO2 of 38 and a pO2 of 78. He remains on norepinephrine at a dose of 0.02 mcg/kg/min. Underwent hemodialysis yesterday with a total of 1.5 L of ultrafiltration. Continues to have episodes of fever with a Tmax of 102. Remains on a combination of IV Invanz and vancomycin. The patient is receiving enteral feeding for nutritional support. He remains on vital high-protein at rate of 30 cc an hour. LFTs are normal. Nevertheless, the bilirubin is quite elevated and there has been ongoing elevation in bilirubin level which is currently up to 6.8. AST 77, ALT is 39. CAT scan of the abdomen and pelvis showed gallstones. No evidence of biliary dilatation or intrahepatic ductal dilatation. The rest of the blood work from today shows a WC of 10.2, hemoglobin 7.9 and platelet count of 232. Sodium is at 128, BUN is 48 with a creatinine of 2.6. Objective - Vital Signs Vital signs: Vital Signs Temp 99.7 F H 09/14/24 13:30 Pulse 61 09/14/24 14:00 Resp 18 09/14/24 14:00 BP 137/64 09/14/24 12:15 Pulse Ox 94 L 09/14/24 14:00 FiO2 40 09/14/24 14:00 Intake & Output 09/13/24 09/14/24 09/14/24 18:59 06:59 18:59 Intake Total 1232.932 780.739 300.976 Output Total 3410 15 5 Balance -2177.068 765.739 295.976 Weight 90.5 kg 90.5 kg Intake: IV 192 192 146 Ertapenem 0.5 gm In 50 Sodium Chloride 0.9% 50 ml @ 100 mls/hr IVPB Q24H [facility] Rx#:[id number] LR 120 120 60 a line + CVP 72 72 36 Intake, IV Titration 200.932 78.739 54.976 Amount Norepinephrine 8 mg In 57.028 78.739 54.976 Sodium Chloride 0.9% 250 ml @ 0.03 MCG/KG/MIN 4. 737 mls/hr IV .Q24H [facility] Rx#:[id number] Vasopressin 60 unit In 74.716 Sodium Chloride 0.9% 150 ml @ 0.03 UNITS/MIN 4.59 mls/hr IV .Q24H [facility] Rx#: [id number] propofoL 1,000 mg In 69.188 Empty Bag 1 bag @ 15 MCG/ KG/MIN 6.75 mls/hr IV . [id number] [facility] Rx#:[id number] Tube Feeding 350 420 70 Hemodialysis 400 Other 90 90 30 Output: Urine 10 15 5 Hemodialysis 1900 Hemodialysis Net Amount 1500 Other: Voiding Method Indwelling Catheter Indwelling Catheter # Bowel Movements 0 0 0 ABP, PAP, CO, CI - Last Documented Arterial Blood Pressure 122/46 - Exam GENERAL EXAM: Intubated, sedated 64-year-old male patient on the mechanical ventilator, in no apparent distress. Calm and comfortable, off sedation, unresponsive, grimaces only to painful stimulation. HEAD: Normocephalic. EYES: Normal reaction of pupils, equal size. NOSE: Clear with pink turbinates. THROAT: Oral endotracheal and gastric tube secured in place. No erythema or exudates. NECK: No masses, no JVD.left IJ tripple lumen and tight radial art line and a right femeral HD cath. CHEST: No chest wall deformity. LUNGS: Equal air entry with coarse scattered rhonchi. CVS: Distant heart tones. S1 and S2 normal with no audible murmur, regular rhythm. ABDOMEN: No hepatosplenomegaly, normal bowel sounds, no guarding or rigidity. SPINE: No scoliosis or deformity SKIN: No rashes CENTRAL NERVOUS SYSTEM: No focal deficits, tone is normal in all 4 extremities. EXTREMITIES: There is 1+ peripheral edema. No clubbing, no cyanosis. Peripheral pulses are intact. - Labs CBC & Chem 7: 09/14/24 05:30 09/14/24 05:30 Labs: Abnormal Lab Results - Last 24 Hours (Table) 09/12/24 09/13/24 09/13/24 Range/Units 23:41 16:51 18:23 RBC (4.30-5.90) m/uL Hgb (13.0-17.5) gm/dL Hct (39.0-53.0) % Neutrophils # (1.3-7.7) k/uL ABG pH (7.35-7.45) ABG pO2 (83-108) mmHg ABG HCO3 (21-25) mmol/L ABG Total CO2 (19-24) mmol/L Hemoglobin (13.0-17.5) gm/dL Sodium (137-145) mmol/L Chloride (98-107) mmol/L BUN (9-20) mg/dL Creatinine (0.66-1.25) mg/dL POC Glucose (mg/dL) 154 H 134 H 133 H (70-110) mg/dL Calcium (8.4-10.2) mg/dL Total Bilirubin (0.2-1.3) mg/dL AST (17-59) U/L Alkaline Phosphatase (38-126) U/L Total Protein (6.3-8.2) g/dL Albumin (3.5-5.0) g/dL 09/13/24 09/14/24 09/14/24 Range/Units 23:32 05:30 05:30 RBC 2.45 L (4.30-5.90) m/uL Hgb 7.9 L (13.0-17.5) gm/dL Hct 21.9 L (39.0-53.0) % Neutrophils # 8.2 H (1.3-7.7) k/uL ABG pH (7.35-7.45) ABG pO2 (83-108) mmHg ABG HCO3 (21-25) mmol/L ABG Total CO2 (19-24) mmol/L Hemoglobin (13.0-17.5) gm/dL Sodium 128 L (137-145) mmol/L Chloride 96 L (98-107) mmol/L BUN 48 H (9-20) mg/dL Creatinine 2.69 H (0.66-1.25) mg/dL POC Glucose (mg/dL) 113 H (70-110) mg/dL Calcium 7.2 L (8.4-10.2) mg/dL Total Bilirubin 6.8 H (0.2-1.3) mg/dL AST 77 H (17-59) U/L Alkaline Phosphatase 237 H (38-126) U/L Total Protein 5.1 L (6.3-8.2) g/dL Albumin 1.9 L (3.5-5.0) g/dL 09/14/24 09/14/24 Range/Units 05:50 11:09 RBC (4.30-5.90) m/uL Hgb (13.0-17.5) gm/dL Hct (39.0-53.0) % Neutrophils # (1.3-7.7) k/uL ABG pH 7.49 H (7.35-7.45) ABG pO2 78 L (83-108) mmHg ABG HCO3 29 H (21-25) mmol/L ABG Total CO2 30 H (19-24) mmol/L Hemoglobin 7.3 L (13.0-17.5) gm/dL Sodium (137-145) mmol/L Chloride (98-107) mmol/L BUN (9-20) mg/dL Creatinine (0.66-1.25) mg/dL POC Glucose (mg/dL) 115 H (70-110) mg/dL Calcium (8.4-10.2) mg/dL Total Bilirubin (0.2-1.3) mg/dL AST (17-59) U/L Alkaline Phosphatase (38-126) U/L Total Protein (6.3-8.2) g/dL Albumin (3.5-5.0) g/dL Microbiology - Last 24 Hours (Table) 09/12/24 13:31 Urine Culture - Preliminary Urine,Catheterized Gram Neg Bacilli 09/12/24 18:57 Blood Culture - Preliminary Blood 09/11/24 10:45 Gram Stain - Final Sputum Sputum Culture - Final Assessment and Plan Plan: Acute hypoxic respiratory failure, requiring mechanical ventilation and intubation on 09/05/24. Respiratory failure is multifactorial. The patient presented with significant metabolic derangements, acute on top of chronic renal failure, sepsis and decompensated heart failure. Remains intubated on mechanical ventilator and the chest x-ray is consistent with CHF.Repeat chest x- ray from today shows stable findings with scattered infiltrates that are unchanged. Patient has lower lobe consolidation suggestive of pneumonia. The patient is currently on a combination of IV Invanz and vancomycin. The blood gases are stable from today. The patient remains intubated on the mechanical ventilator with ongoing respiratory support. Sputum samples are negative. Limited improvement in oxygenation on today's blood gas. Chest x-ray findings are stable. Episodes of fever Cholestatic picture with elevated bilirubin level Acute rhabdomyolysis, resolved, and the CPK levels have been downtrending Acute on top of chronic kidney disease. The patient is known to have stage 3 chronic kidney disease and the patient developed an acute kidney injury/ATN, currently on hemodialysis, femoral hemodialysis catheter was placed on the left femoral vein and the patient has undergone hemodialysis and the last session of hemodialysis was yesterday with a total of 1.5 L of ultrafiltration. Systolic heart failure with an ejection fraction of 30% Elevated troponins, in setting of acute renal failure Sepsis, secondary to urinary tract infection. Noted Enterobacter cloacae was cultured in the urine and the blood and the blood culture is also positive for Serratia marcescens. The patient is on IV antibiotics patient remains on a combination of norepinephrine and vasopressin for hemodynamic support. The pressor requirements improved over the past 24 hours Fever secondary to sepsis, currently afebrile Leukocytosis secondary to above, improving Hypertension Mechanical fall, is on home 2 weeks prior Hyperkalemia, resolved Anion gap metabolic acidosis, resolved Hyperphosphatemia, improving Hypocalcemia likely secondary to decreased albumin History of hypertension Hyperlipidemia diabetes mellitus type 2 Hx of frequent UTIs Right kidney mass, post cryoablation at [facility] (renal cell ca) Plan: Continue ventilator support, no vent changes for today Chest x-ray was noted and the findings are essentially stable Continue IV Invanz and vancomycin Monitor fever pattern Patient is currently on low-dose norepinephrine and vasopressin has been discontinued CAT scan of the abdomen and pelvis was noted, the patient has gallstones. Based on the ongoing elevation of bilirubin, will repeat the ultrasound of the gallb ladder and same time check haptoglobin and LDH Continue Levemir insulin 20 units twice daily along with a sliding scale coverage Off amiodarone Dilaudid for pain control Continue bronchodilators Heparin for DVT prophylaxis Continue hemodialysis per nephrology, hemodialysis was done yesterday with a total of 1.5 L of ultrafiltration Monitor diarrhea and check stool for C. difficile. Enteral feeding for nutritional support and the patient is currently on vital HP Significant impairment in mental status off propofol. Will continue monitoring the mentation we will keep the patient off sedation. We will continue to follow and make further recommendations based on his clinical status Not ready for weaning at this point in time due to above-mentioned comorbidities. Evaluation was done more than 30 minutes and this is a critical care evaluation I had a lengthy discussion with the sister at the bedside. Long-term prognosis poor based on above-mentioned comorbidities. Time with Patient: Greater than 30
--- NOTE | 2024-09-14 16:17 | US ---
EXAMINATION TYPE: US gallbladder DATE OF EXAM: 09/14/2024 COMPARISON: NONE CLINICAL INDICATION: Male, 64 years old with history of jaundice; jaundice increased bilirubin hx of gallstones. TECHNIQUE: FINDINGS: EXAM MEASUREMENTS: Liver Length: 21.3 cm Gallbladder Wall: .3 cm CBD: .6 cm Right Kidney: 11 x 5.3 x 4.5 cm Pancreas: Obscured by bowel gas Liver: Increased attenuation hepatomegaly. Gallbladder: Stones seen pericholecystic fluid seen. Evidence for sonographic Jones's sign: no CBD: No stones seen upper limits. Right Kidney: No hydronephrosis or masses seen IMPRESSION: 1. Moderate hepatomegaly with coarsened echotexture suggesting fatty infiltration or cirrhosis. 2. Cholelithiasis. Negative sonographic Jones sign. 3. Limited evaluation of pancreas. 4. Normal right kidney. [facility]jandro, Workstation: [facility], 09/14/2024 4:14 PM
[2024-09-14 16:58] LABS: Glucose,Whole Blood 70 mg/dL (70-110)
[2024-09-14 18:50] LABS: Glucose,Whole Blood 77 mg/dL (70-110)
[2024-09-15 00:05] LABS: Glucose,Whole Blood 84 mg/dL (70-110)
--- NOTE | 2024-09-15 04:43 | PN ---
PROGRESS NOTE DATE OF SERVICE: 09/14/2024 SUBJECTIVE: This 64-year-old gentleman was admitted with metabolic encephalopathy, sepsis, UTI, rhabdomyolysis, also with acute respiratory failure. The patient also has hypertension. The patient was on hemodialysis. The patient also had hyperbilirubinemia possibly from medication induced, as well as from sepsis. The patient is closely monitored. The patient is sedated. The most recent chest x-ray was reviewed. PAST MEDICAL HISTORY: Reviewed. REVIEW OF SYSTEMS: Could not be taken. CURRENT MEDICATIONS: Reviewed. PHYSICAL EXAMINATION: VITAL SIGNS: Pulse is 63, blood pressure 120/80, respirations 24. Vent settings are noted. HEENT: Conjunctivae normal. CARDIOVASCULAR: S1, S2. RESPIRATIONS: A few scattered rhonchi. ABDOMEN: Soft, obese. LEGS: No edema. No swelling. SKIN: Has a yellowish hue. LABORATORY DATA: Hemoglobin 7.9, creatinine 2.69, bilirubin is 6.8. ASSESSMENT: 1. Enterobacter cloacae sepsis with urinary tract infection, present on admission. 2. Acute hypoxic respiratory failure, on mechanical ventilation. 3. Acute on chronic renal failure, on hemodialysis. 4. Acute diabetic ketoacidosis, present on admission. 5. Rhabdomyolysis, present on admission. 6. Diabetes mellitus, type 2. 7. Hyperlipidemia. 8. Jaundice and liver failure with liver function tests improving, bilirubin elevated. 9. Bilateral pneumonia. 10.No code, no CPR. RECOMMENDATION: Recommend to continue current management and continue symptomatic treatment, repeat labs. Otherwise, continue current antibiotics. Continue with hemodialysis. Otherwise, the family had a discussion with the ICU team, and they will make a decision if the patient is not improving in the next few days. MMODL / IJN: [id number] /
[2024-09-15 05:37] LABS: Glucose,Whole Blood 51 mg/dL (70-110)
[2024-09-15 05:37] LABS: Glucose,Whole Blood 51 mg/dL (70-110)
[2024-09-15] MEDS: DEXTROSE 50% SYRINGE 50 ML IVP PRN (05:39)
[2024-09-15 05:44] LABS: ABG HCO3 29 mmol/L (21-25); ABG Oxygen Saturation 99.5 % (94-97); ABG PCO2 40 mmHg (35-45); ABG PH 7.47 (7.35-7.45); ABG PO2 128 mmHg (83-108); ABG TCO2 30 mmol/L (19-24); Allen Test Performed? Yes
[2024-09-15 06:01] LABS: Glucose,Whole Blood 85 mg/dL (70-110)
--- NOTE | 2024-09-15 08:00 | XR ---
EXAMINATION TYPE: XR chest 1V portable DATE OF EXAM: 09/15/2024 4:26 AM COMPARISON: Chest radiographs from 09/14/2024 CLINICAL INDICATION: Male, 64 years old with history of intubation; TECHNIQUE: XR chest 1V portable Frontal view of the chest. FINDINGS: Lungs/Pleura: There is no evidence of pleural effusion, focal consolidation, or pneumothorax. Pulmonary vascularity: Pulmonary vascular congestion. Heart/mediastinum: Cardiomediastinal silhouette is enlarged. Musculoskeletal: No acute osseous pathology. Lines/Tubes: Endotracheal tube with distal tip xx cm above the nicol. Nasogastric tube with side-port projecting over the distal esophagus. Left internal jugular central venous catheter with distal tip at the cavoatrial junction. IMPRESSION: 1. Endotracheal tube felt to be above the nicol. 2. Nasogastric tube side-port near the distal esophagus and advancement of 10 cm recommend frontal p lacement. 3. Cardiomegaly with pulmonary edema. [facility], , 09/15/2024 7:58 AM
[2024-09-15 08:24] LABS: Glucose,Whole Blood 84 mg/dL (70-110)
[2024-09-15 08:51] LABS: ALT 101 U/L (4-49); AST 272 U/L (17-59); African American GFR (CKD) 28 (>60 ml/min/1.73 sqM); Alkaline Phosphatase 307 U/L (38-126); Anion Gap 8 mmol/L; Blood Urea Nitrogen 51 mg/dL (9-20); Calcium 7.1 mg/dL (8.4-10.2); Carbon Dioxide 27 mmol/L (22-30); Chloride 95 mmol/L (98-107); Glucose 77 mg/dL (74-99); Non-African American GFR(CKD) 24 (>60 ml/min/1.73 sqM); Sodium 130 mmol/L (137-145); Total Bilirubin 6.9 mg/dL (0.2-1.3); Total Protein 5.1 g/dL (6.3-8.2)
[2024-09-15 09:33] LABS: Basophils % (A) 0 %; Eosinophils # (A) 0.2 k/uL (0-0.7); Eosinophils % (A) 2 %; HCT 23.2 % (39.0-53.0); HGB 7.4 gm/dL (13.0-17.5); Lymphocytes % (A) 8 %; MCV 90.7 fL (80.0-100.0); Mean Platelet Volume 9.8; Monocytes # (A) 0.5 k/uL (0-1.0); Monocytes % (A) 4 %; Neutrophils # (A) 9.3 k/uL (1.3-7.7); Neutrophils % (A) 81 %; Platelet Count 296 k/uL (150-450); RBC 2.56 m/uL (4.30-5.90); RDW 15.5 % (11.5-15.5); WBC 11.5 k/uL (3.8-10.6)
--- NOTE | 2024-09-15 09:44 | P.PN ---
Subjective Patient is seen in follow-up for acute kidney injury on chronic kidney disease. Started on hemodialysis September 06, 2024 via right femoral catheter. Catheter was not functioning well and new catheter was placed September 11, 2024. On Levophed. Oliguric. Intubated. Undergoing daily dialysis. Receiving tube feeds. Vital signs are stable. On vasopressor support. General: Resting in bed. HEENT: Intubated. LUNGS: Scattered rhonchi. HEART: Rate and Rhythm are regular. ABDOMEN: No distention. EXTREMITITES: 1+ edema. Scrotal edema noted. Objective - Vital Signs Vital signs: Vital Signs Temp 99.0 F 09/15/24 07:15 Pulse 66 09/15/24 09:00 Resp 20 09/15/24 09:00 BP 111/59 09/15/24 09:00 Pulse Ox 100 09/15/24 09:00 FiO2 40 09/15/24 07:48 Intake & Output 09/14/24 09/15/24 09/15/24 18:59 06:59 18:59 Intake Total 486.309 855.529 47.975 Output Total 5 9 8 Balance 481.309 846.529 39.975 Weight 90.5 kg 90 kg Intake: IV 242 208 32 Ertapenem 0.5 gm In 50 Sodium Chloride 0.9% 50 ml @ 100 mls/hr IVPB Q24H [facility]I Rx#:[id number] LR 120 130 20 a line + CVP 72 78 12 Intake, IV Titration 74.309 72.529 15.975 Amount Norepinephrine 8 mg In 74.309 72.529 15.975 Sodium Chloride 0.9% 250 ml @ 0.03 MCG/KG/MIN 4. 737 mls/hr IV .Q24H [facility]I Rx#:[id number] Tube Feeding 140 455 Other 30 120 Output: Urine 5 9 8 Other: Voiding Method Indwelling Catheter Indwelling Catheter # Bowel Movements 1 ABP, PAP, CO, CI - Last Documented Arterial Blood Pressure 126/45 - Labs CBC & Chem 7: 09/15/24 08:24 09/15/24 08:24 Labs: Abnormal Lab Results - Last 24 Hours (Table) 09/12/24 09/14/24 09/14/24 Range/Units 23:41 11:09 11:10 WBC (3.8-10.6) k/uL RBC (4.30-5.90) m/uL Hgb (13.0-17.5) gm/dL Hct (39.0-53.0) % Neutrophils # (1.3-7.7) k/uL Haptoglobin 402.0 H (31.2-198.0) mg/dL ABG pH (7.35-7.45) ABG pO2 (83-108) mmHg ABG HCO3 (21-25) mmol/L ABG Total CO2 (19-24) mmol/L ABG O2 Saturation (94-97) % Hemoglobin (13.0-17.5) gm/dL Sodium (137-145) mmol/L Chloride (98-107) mmol/L BUN (9-20) mg/dL Creatinine (0.66-1.25) mg/dL POC Glucose (mg/dL) 154 H 115 H (70-110) mg/dL Calcium (8.4-10.2) mg/dL Total Bilirubin (0.2-1.3) mg/dL AST (17-59) U/L ALT (4-49) U/L Alkaline Phosphatase (38-126) U/L Total Protein (6.3-8.2) g/dL Albumin (3.5-5.0) g/dL 09/15/24 09/15/24 09/15/24 Range/Units 05:34 05:36 05:40 WBC (3.8-10.6) k/uL RBC (4.30-5.90) m/uL Hgb (13.0-17.5) gm/dL Hct (39.0-53.0) % Neutrophils # (1.3-7.7) k/uL Haptoglobin (31.2-198.0) mg/dL ABG pH 7.47 H (7.35-7.45) ABG pO2 128 H (83-108) mmHg ABG HCO3 29 H (21-25) mmol/L ABG Total CO2 30 H (19-24) mmol/L ABG O2 Saturation 99.5 H (94-97) % Hemoglobin 7.3 L (13.0-17.5) gm/dL Sodium (137-145) mmol/L Chloride (98-107) mmol/L BUN (9-20) mg/dL Creatinine (0.66-1.25) mg/dL POC Glucose (mg/dL) 51 L 51 L (70-110) mg/dL Calcium (8.4-10.2) mg/dL Total Bilirubin (0.2-1.3) mg/dL AST (17-59) U/L ALT (4-49) U/L Alkaline Phosphatase (38-126) U/L Total Protein (6.3-8.2) g/dL Albumin (3.5-5.0) g/dL 09/15/24 09/15/24 Range/Units 08:24 08:24 WBC 11.5 H (3.8-10.6) k/uL RBC 2.56 L (4.30-5.90) m/uL Hgb 7.4 L (13.0-17.5) gm/dL Hct 23.2 L (39.0-53.0) % Neutrophils # 9.3 H (1.3-7.7) k/uL Haptoglobin (31.2-198.0) mg/dL ABG pH (7.35-7.45) ABG pO2 (83-108) mmHg ABG HCO3 (21-25) mmol/L ABG Total CO2 (19-24) mmol/L ABG O2 Saturation (94-97) % Hemoglobin (13.0-17.5) gm/dL Sodium 130 L (137-145) mmol/L Chloride 95 L (98-107) mmol/L BUN 51 H (9-20) mg/dL Creatinine 2.69 H (0.66-1.25) mg/dL POC Glucose (mg/dL) (70-110) mg/dL Calcium 7.1 L (8.4-10.2) mg/dL Total Bilirubin 6.9 H (0.2-1.3) mg/dL AST 272 H (17-59) U/L ALT 101 H (4-49) U/L Alkaline Phosphatase 307 H (38-126) U/L Total Protein 5.1 L (6.3-8.2) g/dL Albumin 2.0 L (3.5-5.0) g/dL Microbiology - Last 24 Hours (Table) 09/12/24 18:57 Blood Culture - Preliminary Blood 09/12/24 13:31 Urine Culture - Preliminary Urine,Catheterized Gram Neg Bacilli Assessment and Plan Plan: Assessment: 1. Acute kidney injury secondary to ATN secondary to septic shock. Oliguric. No hydronephrosis noted on imaging. Started on hemodialysis September 06, 2024 via right femoral catheter; left femoral catheter was placed September 11, 2024. 2. Chronic kidney disease stage IIIb with baseline creatinine 1.8-2 secondary to diabetic kidney disease. 3. Septic shock with blood cultures positive for Enterobacter and Serratia and urine culture positive for Enterobacter. On antibiotics. 4. Metabolic acidosis secondary to acute kidney injury. Improved. 5. Diabetes mellitus. 6. Rhabdomyolysis. CK levels trending down. CK level 680 dated September 10, 2024. 7. Acute hypoxic respiratory failure. Intubated. 8. History of right renal mass not clearly seen on ultrasound this admission. Will need to see urology outpatient. 9. Volume overload. Improving with daily ultrafiltration. 10. Hypervolemic hyponatremia. Better. 11. Anemia of chronic kidney disease. On Aranesp. Plan: Continue Daily dialysis for now due to volume overload. No response in urine output status post IV Lasix given September 11, 2024. Maintain tube feeds. Wean FiO2 and vasopressors. Continue to monitor renal function and urine output. Phosphorus level 4.0 dated September 12, 2024. Prognosis guarded.
[2024-09-15 11:23] LABS: Glucose,Whole Blood 96 mg/dL (70-110)
[2024-09-15] MEDS: VANCOMYCIN 1,500 MG in SODIUM CHLORIDE 0.9% 500 ML 500 ML IVPB ONE (11:29)
--- NOTE | 2024-09-15 12:23 | P.PN ---
Subjective Progress Note Date: 09/15/24 Patient is a 64-year-old male with past medical history significant for diabetes mellitus, chronic kidney disease, hyperlipidemia, hypertension, among other things. Patient is currently in the intensive care unit, he is a poor historian. Unable to provide reliable history. The ER provider did not contact me. Per the ER documentation, patient was found on the ground for an unknown known amount of time, last seen well 2 weeks prior by his sister. He was found to be in acute rhabdomyolysis with acute renal failure. He was also found with elevated blood sugars. CT of the brain and C-spine without contrast showing no acute intracranial process and no acute osseous abnormalities of the C-spine. Initial labs include a CBC: WBC count 17.3, hemoglobin 14.6, hematocrit 45.1, platelets 226. CMP: Sodium 136, potassium 5.7, chloride 95, serum bicarb 14, BUN 137, creatinine 8.82, glucose 578. Lactic 1.5. Magnesium 2.7. LFTs mildly elevated. Troponin 0.043. NT proBNP 4510. EKG: normal sinus rhythm, rate 88 bpm, incomplete RBB pattern, without obvious acute ischemic changes. Urine drug screen unremarkable. Serum ETOH < 10. Currently evaluating this patient in the intensive care unit. CPK was 7555 on arrival. Did receive 1.5 L normal saline bolus in in ED and started on normal saline at 130 ml/hr. Subsequently started on sodium bicarbonate infusion 3 A in D5W at 100 mL/h. urine output is in the order of 30 to 50 cc/h. Nephrology is managing. Repeat potassium is down to 4.7. On arrival blood glucose 578, serum bicarb 12, anion gap 27, acetone positive. Patient has also been started on insulin infusion Per protocol. He did develop some respiratory distress, breathing in the high 40s. I did ask for the pateint to be placed on BiPAP with settings 10/5 and FiO2 to be titrated a ppropriately. Chest x-ray showing cardiomegaly. There is a left midlung linear infiltrates concerning for atelectasis or early pneumonia. Patient does have bruising to his left lateral chest. It is painful to palpation without crepitus or subcutaneous emphysema. Patient was empirically started on antibiotics in the ED.Current vitals: 97.6 F, blood pressure 115/85 mmHg, heart rate 78 bpm, tachypneic breathing in the high 40s, SpO2 is 100% on BiPAP with settings 10/5 FiO2 100%. Prognosis is guarded. 09/06/24 - Patient seen at bedside this morning, remaining in the ICU, day 2 of hospitalization, admitted on 09/05/24 and in the ICU since that time. He was placed to mechanical ventilation with intubation yesterday (09/05/24). He is on assist-control with a rate of 20, volume 450, FiO2 40%, PEEP of 5. ABG this morning showed pO2 72, pCO2 34, pH 7.46, indicating respiratory alkalosis with relative hypoxemia. Initial improvement in his WBCs down to 13.6 (from 14.8) this morning, his hemoglobin decreased to 11.2. His BUN is 138, creatinine 7.61. Increase in AST, 3-4, and ALT, up to 113. Phosphorus 5.0, remaining 9, calcium 6.6, remaining well. Creatinine Kinase remains elevated, showing improvements, to 6149. His procalcitonin returned at > 100. His blood cultures were positive for Enterobacter cloacae without resistance noted, patient placed on cefepime - discontinued Rocephin and Zithromax. Patient remained Levophed at 0.09 mcg/kg/min (7.26 mcg/min) and propofol 40 mcg/kg/min. Blood pressure this morning 113/52. He will be started on vital HP 10 cc/h, with a goal being 37 cc/h. 09/07/24 - Patient seen at bedside today, remaining in the ICU, [facility]. Admitted on 09/05/24 and in the ICU since that time. He has been intubated on mechanical ventilation since 09/05/24. He remains on assist- control with a rate of 20, volume 450, FiO2 50% and a PEEP of 8. ABG this morning showed pO2 59, pCO2 34, pH 7.46 which indicated respiratory alkalosis with some metabolic alkalosis - this was done while the patient was on an FiO2 of 40%. At that time, patient's FiO2 was up to 50% and his PEEP was increased to 8, since that time he has been saturating well. This morning his WBCs are 9.9, hemoglobin 10.1, platelet count 76, sodium 134, BUN 88, creatinine 4.68, calcium 6.4 and ionized calcium 3.7. Most recent creatinine kinase 2760. Because of the patient's relative hypocalcemia he received 1 g of calcium gluconate. The CVP has been slightly elevated since its insertion, at the time of insertion read ~9, however when seen the patient it was reading 6 indicated the patient is likely euvolemic. Patient remains on Levophed 0.01 mcg/kg/min (8 mcg/min), and on propofol 40 mcg/kg/min and vital HP at 30 cc/h (goal of 37 cc/h). He remains on cefepime and lactated ringer 100 cc/h. His urine was positive, preliminarily, for gram-negative bacilli. Preliminary results of blood culture showed Enterobacter cloacae and Serratia marcescens. 09/08/24 - Patient seen at bedside today, remaining in the ICU, day 4 of hospitalization. Admitted on 09/05/24 and in the ICU since that time. He has been intubated and mechanically ventilated since 09/05/24. He remains on assist-control with a rate of 20, volume 450, FiO2 50% and PEEP of 8. ABG done this morning showed pO2 60, pCO2 32, pH 7.45 indicating a respiratory alkalosis with some evidence of metabolic alkalosis. Patient uneventful overnight. WBCs 10.2, hemoglobin 9.4, sodium 133, BUN 63, creatinine 3.91, calcium 6.7. Patient CVP has been elevated, most recently at 12, indicating some possible hypervolemia. Patient allan on propofol 30 mcg/kg/min, Levophed 0.23 mcg/kg/min (~19 mcg/min), and cefepime. Patient's hemodialysis yesterday, 500 cc was removed. Per the hemodialysis nurse, patient's blood pressure dropped at the start of treatment, leading to pressors being increased at that time. Urine culture now final, positive for Enterobacter cloacae. Blood culture remains preliminary at this time for Enterobacter cloacae and Serratia marcescens. The patient is seen today September 09, 2024 in follow-up in the intensive care unit. He remains intubated on the mechanical ventilator and assist-control mode at a rate of 20, tidal volume 450, FiO2 50% and a PEEP of 8. Morning blood gases revealed a PaO2 of 86, pCO2 33 and a pH of 7.45. He is currently on norep inephrine at 27 mcg/min. Vasopressin at 0.03 units/min. Propofol at 30 mcg/kg/min. Lactated Ringer's at 10 mL/h. Receiving vital HP at 37 mL/h which is goal. He remains on cefepime for Enterobacter Cloacae in the urine. Enterobacter Cloacae and Serratia marcescens in the blood. Have a Tmax last night of 103.4. Currently 99.4. White count 13.5. Hemoglobin 9.6. Platelets 119. Sodium 133. Potassium 3.9. Bicarb 21. BUN 59. Creatinine 3.35. Glucose 245. He is continued on DuoNeb and elations. Heparin for DVT prophylaxis. Remains on Levemir and Lovenox sliding scale. He is currently in a +1.8 L balance. Chest x-ray shows persistent mild to moderate central vascular congestion bilaterally. He has been receiving hemodialysis. On 09/10/2024, the patient is being seen for a follow-up. Remains intubated on the mechanical ventilator. This morning, the patient is on propofol running at 30 mcg/kg/min. He is calm and comfortable and synchronous on mechanical ventilator. He is on assist-control mode of mechanical ventilation at rate of 20, tidal volume of 450, FiO2 of 50% with a PEEP of 5. His chest x-ray from today showing pulmonary vascular congestion and possibly some small bilateral pleural effusion. ET tube is around 4 cm above the nicol. No airspace disease or any consolidations noted. The pH is at 7.39 with a pCO2 of 34 and pO2 of 62. The patient is currently on pressors and is on norepinephrine running at 0.13 mcg/kg/min and he is also on vasopressin physiologic dose regarding his underlying gram-negative sepsis. Antibiotic coverage with IV cefepime for now. Afebrile, urine output is in the order of 5 cc an hour as the patient has developed an acute on top of chronic kidney injury and the fluid balance over the past 24 hours is +2.0 L. The patient is undergoing hemodialysis for now. Hemodialysis catheter is in the right femoral vein. His last hemodialysis session was on 09/09/2024 and another session of hemodialysis is to be done today. The patient blood work from today shows a WBC count of 11.3 with a hemoglobin of 9.7 and a platelet count of 116. Sodium is at 131, bicarb is at 18, potassium is at 4.4, BUN is 81 with a creatinine of 3.8. His liver function tests have improved including a drop in the AST and ALT. Alkaline phosphatase is also down to 218. Albumin is at 1.8 with a total protein of 4.4. As stated earlier, the cultures were positive for Enterobacter in his urine and blood. The blood also showed Serratia marcescens. His echocardiogram done during this current admission shows impaired LV function with an ejection fraction of 30% and there is global decrease in the contractility probably due to his underlying sepsis. He is receiving enteral feeding for nutritional support and is currently on THP vital HP vital HP at a rate of 37 cc an hour. IVF are KVO. On 09/11/2024, the patient is being seen in follow-up in the intensive care unit. The patient remains intubated on the mechanical ventilator. This morning, the patient is on propofol running at 50 mcg/kg/min. Earlier this morning, a blood gas was done as the patient was on a assist-control mode at a rate of 20 with a tidal volume of 450 and FiO2 of 50% with a PEEP of 8. The patient was found to be hypoxic with a pH of 7.41 with a pCO2 of 34 and pO2 54. The PEEP accordingly was brought up to 12. Current pulse ox is around 92 to 93%. The patient is still having episodes of fever. Remains septic and the patient remains on pressors and the patient is currently on norepinephrine running with 0.13 mcg/kg/min and vasopressin at 0.03 units. The patient is on IV cefepime. A CAT scan of the abdomen and pelvis was done yesterday and the patient was found to have consolidation in lung bases bilaterally consistent with pneumonia. Based on that, I recommended broadening his antibiotic coverage. Noted the patient was also supposed to undergo hemodialysis yesterday. He did have a problem with his hemodialysis catheter and the dial ysis was not successful. Based on that, the catheter was exchanged and the patient was given another dialysis catheter in his left femoral vein today. Hemodialysis to follow today. The patient remains on vital high-protein for enteral feeding and titrate support at rate of 48 cc an hour. Meanwhile, he is white cell count of 12.6 with a hemoglobin 8.9 and platelet count of 155. BUN is 92 with a creatinine of 4.5 and a sodium levels at 1 of 32 and a potassium level is at 4.4. Serum bicarb is 18. Calcium level is at 7.1. LFTs are within normal limits. Sputum samples were sent for culture. Antibiotic modification was done and the patient was taken off the cefepime and the patient was started on a combination of IV Invanz and Vanco mycin. The patient remains on amiodarone 200 mg p.o. twice a day. The patient is on DuoNeb nebulized treatments [id number]. He is receiving Levemir insulin 20 units twice daily and NovoLog sliding scale coverage. On 09/12/2024, the patient remains intubated on mechanical ventilator. No significant change in his condition since yesterday. Noted the patient was given a session of hemodialysis yesterday and is undergoing another session of hemodialysis this morning. The patient remains sedated on propofol. He remains on 50 mcg/kg/min and the patient will be given a sedation holiday to assess his underlying mental status. He remains on the mechanical ventilator assist- control mode with rate of 20, tidal volume of 450, FiO2 55% with a PEEP of 12. Blood gas showed a pH of 7.47 with a pCO2 of 34 and a pO2 of 81. He is still having episodes of fever with a temperature of 101.6. His antibiotics is modified and the patient is currently on a combination of IV Invanz and vancomycin. Pressor requirements have improved since yesterday and the patient is currently on norepinephrine running at 0.04 mcg/kg/min and the patient is on a vasopressin physiologic dose. IV fluids are KVO. He is on vital high-protein at rate of 35 cc an hour. WBC count is 11 with a hemoglobin of 8.4 and a platelet count of 164. Sodium is at 128, BUN is 63 with a creatinine of 3.58. Potassium levels of 4.2. Sputum samples were obtained yesterday and results are still pending for now. Meanwhile, the patient will be kept on the same antibiotic coverage. Remains on Levemir insulin and the patient is on 20 units twice daily and NovoLog sliding scale coverage. On 09/13/2024, the patient's condition is essentially unchanged. The patient remains sedated and the patient remains on propofol which is running at 50 mcg/kg/min. Remains on the mechanical ventilator, this morning is on assist- control rate of 20, tidal volume of 450, FiO2 55% with a PEEP of 12. Most recent blood gas from this morning showed a pH of 7.47 with a pCO2 of 37 and pO2 of 97. The patient has no major respiratory secretions. The sputum sample that was collected earlier was negative. The chest x-ray findings are essentially unchanged and the patient continues to have stable bibasilar atelectatic changes/limited consolidation. In terms of antibiotic coverage, the patient is currently on a combination of Invanz and vancomycin. He is off norepinephrine. Vasopressin is running at physiologic dose of 0.03 units/min. He is having limited diarrhea. He is on vital high-protein at rate of 35 cc an hour. In terms of his blood work, the white cell count is at 9.9 with a hemoglobin 7.3 and a platelet count of 184. BUN is 52 with a creatinine of 2.8 and a sodium levels at 128 and a potassium level is at 4. Vancomycin trough level was 15. On 09/14/2024, the patient is being seen for a follow-up. The patient is off sedation since yesterday. He is not following commands. Not opening his eyes. Only grimaces to deep painful stimulation. Will continue monitoring his mental status. He remains on mechanical ventilator, assist-control mode rate of 20, t idal volume of 450, FiO2 40% with a PEEP of 10. The blood gas showed a pH of 7.49 with a pCO2 of 38 and a pO2 of 78. He remains on norepinephrine at a dose of 0.02 mcg/kg/min. Underwent hemodialysis yesterday with a total of 1.5 L of ultrafiltration. Continues to have episodes of fever with a Tmax of 102. Remains on a combination of IV Invanz and vancomycin. The patient is receiving enteral feeding for nutritional support. He remains on vital high-protein at rate of 30 cc an hour. LFTs are normal. Nevertheless, the bilirubin is quite elevated and there has been ongoing elevation in bilirubin level which is currently up to 6.8. AST 77, ALT is 39. CAT scan of the abdomen and pelvis showed gallstones. No evidence of biliary dilatation or intrahepatic ductal dilatation. The rest of the blood work from today shows a WC of 10.2, hemoglobin 7.9 and platelet count of 232. Sodium is at 128, BUN is 48 with a creatinine of 2.6. On 09/15/2024, the patient is still off sedation and the patient has been off sedation for the past 24 hours. Slightly more arousable on today's evaluation. He tries to move upon tactile stimulation. Does not respond to any verbal commands. He remains intubated on the mechanical ventilator. He remains on assist-control mode rate of 20, tidal volume of 450, FiO2 40% with a PEEP of 5. Blood gas showed a pH of 7.47 with a pCO2 of 40 and pO2 128. Chest x-ray findings are unchanged. He underwent hemodialysis yesterday another session of hemodialysis to be done today. Remains on norepinephrine running at 0.07 mcg/kg/min. The patient is also on vital high-protein at rate of 75 cc an hour. Bilirubin remains elevated. Ultrasound abdomen showed evidence of chronic liver disease possibly cirrhosis. There is also cholelithiasis without evidence of any cholecystitis. There is also moderate hepatomegaly. The bilirubin from today is at 7.1. LFTs remain elevated and the patient has a cholestatic picture. Sodium is at 130 with a potassium of 4 and a chloride of 95 and a serum bicarb is 27. White second 11.5 with hemoglobin 7.4. Ammonia levels are nonelevated. The patient is currently afebrile although he did have a low-grade temperature of 100.3 overnight. Objective - Vital Signs Vital signs: Vital Signs Temp 99.0 F 09/15/24 07:15 Pulse 70 09/15/24 08:00 Resp 22 09/15/24 08:00 BP 137/64 09/14/24 14:45 Pulse Ox 99 09/15/24 08:00 FiO2 40 09/15/24 07:48 Intake & Output 09/14/24 09/15/24 09/15/24 18:59 06:59 18:59 Intake Total 486.309 855.529 11.106 Output Total 5 9 Balance 481.309 846.529 11.106 Weight 90.5 kg 90 kg Intake: IV 242 208 Ertapenem 0.5 gm In 50 Sodium Chloride 0.9% 50 ml @ 100 mls/hr IVPB Q24H [facility] Rx#:[id number] LR 120 130 a line + CVP 72 78 Intake, IV Titration 74.309 72.529 11.106 Amount Norepinephrine 8 mg In 74.309 72.529 11.106 Sodium Chloride 0.9% 250 ml @ 0.03 MCG/KG/MIN 4. 737 mls/hr IV .Q24H [facility] Rx#:[id number] Tube Feeding 140 455 Other 30 120 Output: Urine 5 9 Other: Voiding Method Indwelling Catheter Indwelling Catheter # Bowel Movements 1 ABP, PAP, CO, CI - Last Documented Arterial Blood Pressure 139/47 - Exam GENERAL EXAM: Intubated, sedated 64-year-old male patient on the mechanical ventilator, in no apparent distress. Calm and comfortable, off sedation, unresponsive, grimaces only to painful stimulation. HEAD: Normocephalic. EYES: Normal reaction of pupils, equal size. NOSE: Clear with pink turbinates. THROAT: Oral endotracheal and gastric tube secured in place. No erythema or exudates. NECK: No masses, no JVD.left IJ tripple lumen and tight radial art line and a right femeral HD cath. CHEST: No chest wall deformity. LUNGS: Equal air entry with coarse scattered rhonchi. CVS: Distant heart tones. S1 and S2 normal with no audible murmur, regular rhythm. ABDOMEN: No hepatosplenomegaly, normal bowel sounds, no guarding or rigidity. SPINE: No scoliosis or deformity SKIN: No rashes CENTRAL NERVOUS SYSTEM: No focal deficits, tone is normal in all 4 extremities. EXTREMITIES: There is 1+ peripheral edema. No clubbing, no cyanosis. Peripheral pulses are intact. - Labs CBC & Chem 7: 09/15/24 08:24 09/15/24 08:24 Labs: Abnormal Lab Results - Last 24 Hours (Table) 09/12/24 09/14/24 09/14/24 Range/Units 23:41 11:09 11:10 Haptoglobin 402.0 H (31.2-198.0) mg/dL ABG pH (7.35-7.45) ABG pO2 (83-108) mmHg ABG HCO3 (21-25) mmol/L ABG Total CO2 (19-24) mmol/L ABG O2 Saturation (94-97) % Hemoglobin (13.0-17.5) gm/dL Sodium (137-145) mmol/L Chloride (98-107) mmol/L BUN (9-20) mg/dL Creatinine (0.66-1.25) mg/dL POC Glucose (mg/dL) 154 H 115 H (70-110) mg/dL Calcium (8.4-10.2) mg/dL Total Bilirubin (0.2-1.3) mg/dL AST (17-59) U/L ALT (4-49) U/L Alkaline Phosphatase (38-126) U/L Total Protein (6.3-8.2) g/dL Albumin (3.5-5.0) g/dL 09/15/24 09/15/24 09/15/24 Range/Units 05:34 05:36 05:40 Haptoglobin (31.2-198.0) mg/dL ABG pH 7.47 H (7.35-7.45) ABG pO2 128 H (83-108) mmHg ABG HCO3 29 H (21-25) mmol/L ABG Total CO2 30 H (19-24) mmol/L ABG O2 Saturation 99.5 H (94-97) % Hemoglobin 7.3 L (13.0-17.5) gm/dL Sodium (137-145) mmol/L Chloride (98-107) mmol/L BUN (9-20) mg/dL Creatinine (0.66-1.25) mg/dL POC Glucose (mg/dL) 51 L 51 L (70-110) mg/dL Calcium (8.4-10.2) mg/dL Total Bilirubin (0.2-1.3) mg/dL AST (17-59) U/L ALT (4-49) U/L Alkaline Phosphatase (38-126) U/L Total Protein (6.3-8.2) g/dL Albumin (3.5-5.0) g/dL 09/15/24 Range/Units 08:24 Haptoglobin (31.2-198.0) mg/dL ABG pH (7.35-7.45) ABG pO2 (83-108) mmHg ABG HCO3 (21-25) mmol/L ABG Total CO2 (19-24) mmol/L ABG O2 Saturation (94-97) % Hemoglobin (13.0-17.5) gm/dL Sodium 130 L (137-145) mmol/L Chloride 95 L (98-107) mmol/L BUN 51 H (9-20) mg/dL Creatinine 2.69 H (0.66-1.25) mg/dL POC Glucose (mg/dL) (70-110) mg/dL Calcium 7.1 L (8.4-10.2) mg/dL Total Bilirubin 6.9 H (0.2-1.3) mg/dL AST 272 H (17-59) U/L ALT 101 H (4-49) U/L Alkaline Phosphatase 307 H (38-126) U/L Total Protein 5.1 L (6.3-8.2) g/dL Albumin 2.0 L (3.5-5.0) g/dL Microbiology - Last 24 Hours (Table) 09/12/24 18:57 Blood Culture - Preliminary Blood 09/12/24 13:31 Urine Culture - Preliminary Urine,Catheterized Gram Neg Bacilli Assessment and Plan Plan: Acute hypoxic respiratory failure, requiring mechanical ventilation and intubation on 09/05/24. Respiratory failure is multifactorial. The patient presented with significant metabolic derangements, acute on top of chronic renal failure, sepsis and decompensated heart failure. Remains intubated on mechanical ventilator and the chest x-ray is consistent with CHF.Repeat chest x- ray from today shows stable findings with scattered infiltrates that are unchanged. Patient has lower lobe consolidation suggestive of pneumonia. The patient is currently on a combination of IV Invanz and vancomycin. The blood gases are stable from today. The patient remains intubated on the mechanical ventilator with ongoing respiratory support. Sputum samples are negative. Chest x-ray findings remain stable Episodes of fever, still running low-grade fever Cholestatic picture with elevated bilirubin level, ultrasound of the liver shows hepatomegaly and possibly static pictures versus a component of liver cirrhosis Acute rhabdomyolysis, resolved, and the CPK levels have been downtrending Acute on top of chronic kidney disease. The patient is known to have stage 3 chronic kidney disease and the patient developed an acute kidney injury/ATN, currently on hemodialysis, femoral hemodialysis catheter was placed on the left femoral vein and the patient has undergone hemodialysis, underwent dialysis yesterday another session to be done today Systolic heart failure with an ejection fraction of 30% Elevated troponins, in setting of acute renal failure Sepsis, secondary to urinary tract infection. Noted Enterobacter cloacae was cultured in the urine and the blood and the blood culture is also positive for Serratia marcescens. The patient is on IV antibiotics patient remains on low- dose norepinephrine Altered mentation, rule out metabolic encephalopathy, rule out drug-induced encephalopathy. Hepatic encephalopathy is felt to be less likely. Ammonia level is not elevated. Uremic encephalopathy could also contribute to his condition. Sluggishly reactive and responsive and the patient has been off sedation for the past 48 hours. Leukocytosis secondary to above, improving Hypertension Mechanical fall, is on home 2 weeks prior Hyperkalemia, resolved Anion gap metabolic acidosis, resolved Hyperphosphatemia, improving Hypocalcemia likely secondary to decreased albumin History of hypertension Hyperlipidemia diabetes mellitus type 2 Hx of frequent UTIs Right kidney mass, post cryoablation at [facility] (renal cell ca) Plan: Continue ventilator support, changed the PEEP down to 8 Monitor mental status No sedatives Hemodialysis today Chest x-ray was noted and the findings are essentially stable Continue IV Invanz and vancomycin Monitor fever pattern Patient is currently on low-dose norepinephrine and vasopressin has been discontinued CAT scan of the abdomen and pelvis was noted, the patient has gallstones. Based on the ongoing elevation of bilirubin, will repeat the ultrasound of the gallbladder and same time check haptoglobin and LDH Continue Levemir insulin 20 units twice daily along with a sliding scale coverage Off amiodarone Dilaudid for pain control Continue bronchodilators Heparin for DVT prophylaxis Enteral feeding for nutritional support and the patient is currently on vital HP Significant impairment in mental status off propofol. Will continue monitoring the mentation we will keep the patient off sedation. We will continue to follow and make further recommendations based on his clinical status Not ready for weaning at this point in time due to above-mentioned comorbidities. Evaluation was done more than 30 minutes and this is a critical care evaluation I had a lengthy discussion with the sister at the bedside. Long-term prognosis poor based on above-mentioned comorbidities. Time with Patient: Greater than 30
[2024-09-15 12:48] VITALS: BMI 35.1
--- NOTE | 2024-09-15 16:15 | P.PN ---
Subjective Progress Note Date: 09/15/24 64-year-old male with medical history significant for hyperlipidemia, diabetes mellitus, heart failure, chronic kidney disease, hypertension. Medical history is obtained from the patient's sister who is at the bedside. Patient is currently on the mechanical ventilator. Patient presented to the hospital yesterday afternoon after being found on the ground responsive by family. Sister states that she goes over to the patient's house every Tuesday to set up his medications for the week. Patient had another family member in the room states that they had spoken over the phone on . When patient's sister arrived to the house on Tuesday after not hearing from him for a few days she found him on the ground unresponsive and states that none of his medications from his pack were taken on Tuesday or Tuesday. This brought into the hospital by ambulance. He is currently intubated and sedated on the mechanical ventilator. Chest x-ray reveals mild linear infiltrate within the mid left lung may be atelectasis or early pneumonia. EKG reveals normal sinus rhythm heart rate of 88 EKG reads as possible right ventricular hypertrophy with inferior OK probably old and an anterior lateral OK of indeterminate age. Brain CT and cervical spine CT revealed no acute changes no evidence for any fracture or stroke. Initial blood work reveals a white blood cell count of 17.3, sodium level of 136 potassium of 5.7, BUN of 137, creatinine of 8.82, blood glucose of 578, lactic acid of 2.6, Phos level 10.6, magnesium of 2.7, AST of 150 ALT of 71, creat kinase of 7555, troponin level is 0.043, proBNP of 4510. Urinalysis is completed with brown turbid urine with greater than 182 RBCs greater than 182 WBCs with many bacteria. His urine drug toxicology is negative serum alcohol is less than 10 he is acetone positive. His viral panel and Legionella screenings are all negative. Was admitted to the hospital intensive care unit secondary to the diabetic ketoacidosis and rhabdomyolysis. There is concern for underlying infection or sepsis he is started empirically on IV azithromycin and IV ceftriaxone. Patient was fluid resuscitated with 2 L of normal saline given in the ER and an infusion of normal saline at 130 mL/h. He did have a repeat chest x-ray completed this morning which is concerning for congestive heart failure and was given a dose of IV Lasix. Multiple consults in place including nephrology and pulmonary senior project leader/team lead. Objective - Vital Signs Vital signs: Vital Signs Temp 99.0 F 09/15/24 07:15 Pulse 65 09/15/24 11:10 Resp 20 09/15/24 09:00 BP 111/59 09/15/24 09:00 Pulse Ox 100 09/15/24 09:00 FiO2 40 09/15/24 11:07 Intake & Output 09/14/24 09/15/24 09/15/24 18:59 06:59 18:59 Intake Total 486.309 855.529 47.975 Output Total 5 9 8 Balance 481.309 846.529 39.975 Weight 90.5 kg 90 kg Intake: IV 242 208 32 Ertapenem 0.5 gm In 50 Sodium Chloride 0.9% 50 ml @ 100 mls/hr IVPB Q24H [facility] Rx#:[id number] LR 120 130 20 a line + CVP 72 78 12 Intake, IV Titration 74.309 72.529 15.975 Amount Norepinephrine 8 mg In 74.309 72.529 15.975 Sodium Chloride 0.9% 250 ml @ 0.03 MCG/KG/MIN 4. 737 mls/hr IV .Q24H [facility] Rx#:[id number] Tube Feeding 140 455 Other 30 120 Output: Urine 5 9 8 Other: Voiding Method Indwelling Catheter Indwelling Catheter # Bowel Movements 1 ABP, PAP, CO, CI - Last Documented Arterial Blood Pressure 126/45 - Exam The patient is sedated and on the mechanical ventilator, FiO2 is 50% with a PEEP of 5. Not in any acute distress. Well developed, well nourished. Ill- appearing, obese, elderly appearing HEENT: Pupils are round and equally reacting to light. EOMI. No scleral icterus. No conjunctival pallor. Normocephalic, atraumatic. No pharyngeal erythema. No thyromegaly. CARDIOVASCULAR: S1 and S2 muffled, tachy PULMONARY: Diminished breath sounds bilaterally otherwise chest is clear to auscultation, no wheezing or crackles. ABDOMEN: Soft, nontender, nondistended, normoactive bowel sounds. No palpable organomegaly. Bruise on the left upper abdomen. MUSCULOSKELETAL: No joint swelling or deformity. EXTREMITIES: No cyanosis, clubbing, or pedal edema. NEUROLOGICAL: Unable to completely assess as patient is on mechanical ventilation and sedated SKIN: No rashes. Pale Pt is jaundiced. Has a scab in the left axilla. - Labs CBC & Chem 7: 09/15/24 08:24 09/15/24 08:24 Labs: Abnormal Lab Results - Last 24 Hours (Table) 09/14/24 09/15/24 09/15/24 Range/Units 11:10 05:34 05:36 WBC (3.8-10.6) k/uL RBC (4.30-5.90) m/uL Hgb (13.0-17.5) gm/dL Hct (39.0-53.0) % Neutrophils # (1.3-7.7) k/uL Haptoglobin 402.0 H (31.2-198.0) mg/dL ABG pH (7.35-7.45) ABG pO2 (83-108) mmHg ABG HCO3 (21-25) mmol/L ABG Total CO2 (19-24) mmol/L ABG O2 Saturation (94-97) % Hemoglobin (13.0-17.5) gm/dL Sodium (137-145) mmol/L Chloride (98-107) mmol/L BUN (9-20) mg/dL Creatinine (0.66-1.25) mg/dL POC Glucose (mg/dL) 51 L 51 L (70-110) mg/dL Calcium (8.4-10.2) mg/dL Total Bilirubin (0.2-1.3) mg/dL AST (17-59) U/L ALT (4-49) U/L Alkaline Phosphatase (38-126) U/L Total Protein (6.3-8.2) g/dL Albumin (3.5-5.0) g/dL 09/15/24 09/15/24 09/15/24 Range/Units 05:40 08:24 08:24 WBC 11.5 H (3.8-10.6) k/uL RBC 2.56 L (4.30-5.90) m/uL Hgb 7.4 L (13.0-17.5) gm/dL Hct 23.2 L (39.0-53.0) % Neutrophils # 9.3 H (1.3-7.7) k/uL Haptoglobin (31.2-198.0) mg/dL ABG pH 7.47 H (7.35-7.45) ABG pO2 128 H (83-108) mmHg ABG HCO3 29 H (21-25) mmol/L ABG Total CO2 30 H (19-24) mmol/L ABG O2 Saturation 99.5 H (94-97) % Hemoglobin 7.3 L (13.0-17.5) gm/dL Sodium 130 L (137-145) mmol/L Chloride 95 L (98-107) mmol/L BUN 51 H (9-20) mg/dL Creatinine 2.69 H (0.66-1.25) mg/dL POC Glucose (mg/dL) (70-110) mg/dL Calcium 7.1 L (8.4-10.2) mg/dL Total Bilirubin 6.9 H (0.2-1.3) mg/dL AST 272 H (17-59) U/L ALT 101 H (4-49) U/L Alkaline Phosphatase 307 H (38-126) U/L Total Protein 5.1 L (6.3-8.2) g/dL Albumin 2.0 L (3.5-5.0) g/dL Microbiology - Last 24 Hours (Table) 09/12/24 18:57 Blood Culture - Preliminary Blood 09/12/24 13:31 Urine Culture - Preliminary Urine,Catheterized Gram Neg Bacilli Assessment and Plan Assessment: Altered mental status secondary to acute metabolic encephalopathy Sepsis with fever and lactic acidosis Acute UTI with sepsis and septic shock; requiring pressor support present on admission Bacteremia with enterobacter and serratia. Acute hypoxemic respiratory failure requiring mechanical intubation, FiO2 is 50% with a PEEP of 5 Diabetic ketoacidosis, improving and patient being transitioned off insulin drip will continue sliding scale along with long-acting Anion gap metabolic acidosis Acute kidney injury acute tubular necrosis secondary to sepsis, worsening kidney functions now requiring hemodialysis, dialysis catheter placed on 09/06/2024 Acute rhabdomyolysis secondary to prolonged downtime with CK of 7555 on admission. Significantly improved. Acute on chronic systolic heart failure Chronic Kidney disease Troponin elevation likely type II OK, although need to rule out NSTEMI Transaminitis Leukocytosis Diabetes mellitus type 2 uncontrolled with DKA Hyperlipidemia Hypertension maintained on lisinopril which is currently being held secondary to the renal dysfunction, currently hypotensive, requiring pressor support GI prophylaxis DVT prophylaxis Full Code Plan: Nephrology consultation and has consulted vascular surgery for hemodialysis catheter placement for emergent dialysis Patient continues with hemodialysis per nephrology. Echocardiogram was done showing a reduced EF of 30 to 35% with no pericardial effusion with aortic valve sclerosis Cardiology consultation in place. Continue IV cefepime. Repeat blood cultures are negative Patient is significantly jaundiced bilirubin is trending down and LFTS are improved. Blood glucose elevated in the 250s and levemir will be increased to 20 units BID with further adjustments if patient remains hyperglycemic. Continue accuchecks with sliding scale insulin Q6hour. Repeat blood work in the AM
[2024-09-15 17:41] LABS: Glucose,Whole Blood 130 mg/dL (70-110)
[2024-09-16 00:11] LABS: Glucose,Whole Blood 162 mg/dL (70-110)
[2024-09-16 05:40] LABS: ABG Base Excess 2.8 mmol/L; ABG HCO3 27 mmol/L (21-25); ABG Oxygen Saturation 98.8 % (94-97); ABG PCO2 41 mmHg (35-45); ABG PH 7.43 (7.35-7.45); ABG PO2 110 mmHg (83-108); ABG TCO2 29 mmol/L (19-24); Allen Test Performed? Yes
[2024-09-16 05:46] LABS: African American GFR (CKD) 33 (>60 ml/min/1.73 sqM); Anion Gap 6 mmol/L; Blood Urea Nitrogen 51 mg/dL (9-20); Calcium 7.2 mg/dL (8.4-10.2); Carbon Dioxide 25 mmol/L (22-30); Chloride 98 mmol/L (98-107); Glucose 162 mg/dL (74-99); Non-African American GFR(CKD) 29 (>60 ml/min/1.73 sqM); Potassium 4.1 mmol/L (3.5-5.1); Sodium 129 mmol/L (137-145)
[2024-09-16 05:51] LABS: Vancomycin,Random 20.7 ug/mL
[2024-09-16 05:57] LABS: Glucose,Whole Blood 177 mg/dL (70-110)
--- NOTE | 2024-09-16 06:44 | XR ---
EXAMINATION TYPE: XR chest 1V portable DATE OF EXAM: 09/16/2024 COMPARISON: 09/15/2024 CLINICAL INDICATION: Male, 64 years old with history of intubated; TECHNIQUE: Single frontal view of the chest is obtained. FINDINGS: ET tube is 2.2 cm above the nicol. The lungs jugular central venous catheter tip is in the SVC/RA ju nction and is unchanged in position. There is an NG tube within the stomach. Diffuse interstitial opacity is stable likely reflecting pulmonary edema or diffuse interstitial pneu monia. The heart size is normal for technique. There is no pneumothorax or large pleural effusion. The osseous structures are intact. IMPRESSION: 1. ET tube 2.2 cm above the nicol. NG tube within the stomach. Central venous catheter tip unchanged in position. 2. No change in diffuse interstitial process likely pulmonary edema. [facility], , 09/16/2024 6:42 AM
[2024-09-16 07:03] LABS: Anisocytosis Slight; HCT 23.2 % (39.0-53.0); HGB 7.5 gm/dL (13.0-17.5); MCH 29.1 pg (25.0-35.0); MCHC 32.4 g/dL (31.0-37.0); MCV 89.9 fL (80.0-100.0); Mean Platelet Volume 9.9; Platelet Count 342 k/uL (150-450); RBC 2.58 m/uL (4.30-5.90); RDW 16.1 % (11.5-15.5); WBC 10.9 k/uL (3.8-10.6)
[2024-09-16] MEDS: VANCOMYCIN 1,500 MG in SODIUM CHLORIDE 0.9% 500 ML 500 ML IVPB ONE (08:13)
[2024-09-16 08:16] LABS: Band Neutrophils % 2 %; Eosinophils # (M) 0.44 k/uL (0-0.7); Lymphocytes # (M) 1.53 k/uL (1.0-4.8); Monocytes # (M) 0.65 k/uL (0-1.0); Neutrophils % (M) 74 %; Nucleated Red Blood Cells 0 /100 WBC (0-0); Target Cells Present; Total Cells Counted 100
--- NOTE | 2024-09-16 09:31 | P.PN ---
Subjective Patient is seen in follow-up for acute kidney injury on chronic kidney disease. Started on hemodialysis September 06, 2024 via right femoral catheter. Catheter was not functioning well and new catheter was placed September 11, 2024. On Levophed. Oliguric. Intubated. Undergoing daily dialysis. Receiving tube feeds. Dialysis had to be cut short yesterday as patient was getting tachycardic and requiring higher doses of Levophed. Vital signs are stable. On vasopressor support. General: Resting in bed. HEENT: Intubated. LUNGS: Scattered rhonchi. HEART: Rate and Rhythm are regular. ABDOMEN: No distention. EXTREMITITES: 1+ edema. Scrotal edema noted. Objective - Vital Signs Vital signs: Vital Signs Temp 98.6 F 09/16/24 04:00 Pulse 73 09/16/24 08:04 Resp 20 09/16/24 07:00 BP 131/49 09/15/24 20:16 Pulse Ox 100 09/16/24 07:00 FiO2 40 09/16/24 07:56 Intake & Output 09/15/24 09/16/24 09/16/24 18:59 06:59 18:59 Intake Total 151.196 7258.477 141.185 Output Total 33 3309 Balance 623.529 -1711.523 141.185 Weight 90 kg 89.6 kg Intake: IV 176 208 16 LR 110 130 10 a line + CVP 66 78 6 Intake, IV Titration 65.529 134.477 40.185 Amount Norepinephrine 8 mg In 65.529 134.477 40.185 Sodium Chloride 0.9% 250 ml @ 0.03 MCG/KG/MIN 4. 737 mls/hr IV .Q24H [facility] Rx#:[id number] Tube Feeding 415 665 55 Hemodialysis 500 Other 90 30 Output: Urine 33 9 Hemodialysis 1900 Hemodialysis Net Amount 1400 Other: Voiding Method Indwelling Catheter Indwelling Catheter ABP, PAP, CO, CI - Last Documented Arterial Blood Pressure 125/43 - Labs CBC & Chem 7: 09/16/24 05:20 09/16/24 05:20 Labs: Abnormal Lab Results - Last 24 Hours (Table) 09/15/24 09/15/24 09/16/24 Range/Units 08:24 17:39 00:09 WBC 11.5 H (3.8-10.6) k/uL RBC 2.56 L (4.30-5.90) m/uL Hgb 7.4 L (13.0-17.5) gm/dL Hct 23.2 L (39.0-53.0) % RDW (11.5-15.5) % Neutrophils # 9.3 H (1.3-7.7) k/uL Neutrophils # (Manual) (1.3-7.7) k/uL ABG pO2 (83-108) mmHg ABG HCO3 (21-25) mmol/L ABG Total CO2 (19-24) mmol/L ABG O2 Saturation (94-97) % Hemoglobin (13.0-17.5) gm/dL Sodium (137-145) mmol/L BUN (9-20) mg/dL Creatinine (0.66-1.25) mg/dL Glucose (74-99) mg/dL POC Glucose (mg/dL) 130 H 162 H (70-110) mg/dL Calcium (8.4-10.2) mg/dL 09/16/24 09/16/24 09/16/24 Range/Units 05:20 05:20 05:38 WBC 10.9 H (3.8-10.6) k/uL RBC 2.58 L (4.30-5.90) m/uL Hgb 7.5 L (13.0-17.5) gm/dL Hct 23.2 L (39.0-53.0) % RDW 16.1 H (11.5-15.5) % Neutrophils # (1.3-7.7) k/uL Neutrophils # (Manual) 8.20 H (1.3-7.7) k/uL ABG pO2 110 H (83-108) mmHg ABG HCO3 27 H (21-25) mmol/L ABG Total CO2 29 H (19-24) mmol/L ABG O2 Saturation 98.8 H (94-97) % Hemoglobin 7.4 L (13.0-17.5) gm/dL Sodium 129 L (137-145) mmol/L BUN 51 H (9-20) mg/dL Creatinine 2.32 H (0.66-1.25) mg/dL Glucose 162 H (74-99) mg/dL POC Glucose (mg/dL) (70-110) mg/dL Calcium 7.2 L (8.4-10.2) mg/dL 09/16/24 Range/Units 05:55 WBC (3.8-10.6) k/uL RBC (4.30-5.90) m/uL Hgb (13.0-17.5) gm/dL Hct (39.0-53.0) % RDW (11.5-15.5) % Neutrophils # (1.3-7.7) k/uL Neutrophils # (Manual) (1.3-7.7) k/uL ABG pO2 (83-108) mmHg ABG HCO3 (21-25) mmol/L ABG Total CO2 (19-24) mmol/L ABG O2 Saturation (94-97) % Hemoglobin (13.0-17.5) gm/dL Sodium (137-145) mmol/L BUN (9-20) mg/dL Creatinine (0.66-1.25) mg/dL Glucose (74-99) mg/dL POC Glucose (mg/dL) 177 H (70-110) mg/dL Calcium (8.4-10.2) mg/dL Microbiology - Last 24 Hours (Table) 09/14/24 15:40 Blood Culture - Preliminary Blood 09/12/24 18:57 Blood Culture - Preliminary Blood Assessment and Plan Plan: Assessment: 1. Acute kidney injury secondary to ATN secondary to septic shock. Oliguric. No hydronephrosis noted on imaging. Started on hemodialysis September 06, 2024 via right femoral catheter; left femoral catheter was placed September 11, 2024. 2. Chronic kidney disease stage IIIb with baseline creatinine 1.8-2 secondary to diabetic kidney disease. 3. Septic shock with blood cultures positive for Enterobacter and Serratia and urine culture positive for Enterobacter. On antibiotics. 4. Metabolic acidosis secondary to acute kidney injury. Improved. 5. Diabetes mellitus. 6. Rhabdomyolysis. CK levels trending down. CK level 680 dated September 10, 2024. 7. Acute hypoxic respiratory failure. Intubated. 8. History of right renal mass not clearly seen on ultrasound this admission. Will need to see urology outpatient. 9. Volume overload. Improving with daily ultrafiltration. 10. Hypervolemic hyponatremia. Better. 11. Anemia of chronic kidney disease. On Aranesp. Plan: Plan for dialysis tomorrow. Challenge again with IV Lasix 80 mg once today. No response in urine output status post IV Lasix given September 11, 2024. Maintain tube feeds. Wean FiO2 and vasopressors. Continue to monitor renal function and urine output. Phosphorus level 4.0 dated September 12, 2024. Prognosis guarded.
[2024-09-16] MEDS: FUROSEMIDE 10 MG/ML 10 ML VIAL IV STA (09:38)
[2024-09-16 09:45] LABS: ALT 71 U/L (4-49); AST 67 U/L (17-59); Albumin 1.9 g/dL (3.5-5.0); Alkaline Phosphatase 264 U/L (38-126); Total Bilirubin 3.8 mg/dL (0.2-1.3); Total Protein 5.1 g/dL (6.3-8.2)
[2024-09-16 11:26] LABS: Glucose,Whole Blood 223 mg/dL (70-110)
--- NOTE | 2024-09-16 11:33 | P.PN ---
Subjective Progress Note Date: 09/16/24 Patient is a 64-year-old male with past medical history significant for diabetes mellitus, chronic kidney disease, hyperlipidemia, hypertension, among other things. Patient is currently in the intensive care unit, he is a poor historian. Unable to provide reliable history. The ER provider did not contact me. Per the ER documentation, patient was found on the ground for an unknown known amount of time, last seen well 2 weeks prior by his sister. He was found to be in acute rhabdomyolysis with acute renal failure. He was also found with elevated blood sugars. CT of the brain and C-spine without contrast showing no acute intracranial process and no acute osseous abnormalities of the C-spine. Initial labs include a CBC: WBC count 17.3, hemoglobin 14.6, hematocrit 45.1, platelets 226. CMP: Sodium 136, potassium 5.7, chloride 95, serum bicarb 14, BUN 137, creatinine 8.82, glucose 578. Lactic 1.5. Magnesium 2.7. LFTs mildly elevated. Troponin 0.043. NT proBNP 4510. EKG: normal sinus rhythm, rate 88 bpm, incomplete RBB pattern, without obvious acute ischemic changes. Urine drug screen unremarkable. Serum ETOH < 10. Currently evaluating this patient in the intensive care unit. CPK was 7555 on arrival. Did receive 1.5 L normal saline bolus in in ED and started on normal saline at 130 ml/hr. Subsequently started on sodium bicarbonate infusion 3 A in D5W at 100 mL/h. urine output is in the order of 30 to 50 cc/h. Nephrology is managing. Repeat potassium is down to 4.7. On arrival blood glucose 578, serum bicarb 12, anion gap 27, acetone positive. Patient has also been started on insulin infusion Per protocol. He did develop some respiratory distress, breathing in the high 40s. I did ask for the pateint to be placed on BiPAP with settings 10/5 and FiO2 to be titrated a ppropriately. Chest x-ray showing cardiomegaly. There is a left midlung linear infiltrates concerning for atelectasis or early pneumonia. Patient does have bruising to his left lateral chest. It is painful to palpation without crepitus or subcutaneous emphysema. Patient was empirically started on antibiotics in the ED.Current vitals: 97.6 F, blood pressure 115/85 mmHg, heart rate 78 bpm, tachypneic breathing in the high 40s, SpO2 is 100% on BiPAP with settings 10/5 FiO2 100%. Prognosis is guarded. 09/06/24 - Patient seen at bedside this morning, remaining in the ICU, day 2 of hospitalization, admitted on 09/05/24 and in the ICU since that time. He was placed to mechanical ventilation with intubation yesterday (09/05/24). He is on assist-control with a rate of 20, volume 450, FiO2 40%, PEEP of 5. ABG this morning showed pO2 72, pCO2 34, pH 7.46, indicating respiratory alkalosis with relative hypoxemia. Initial improvement in his WBCs down to 13.6 (from 14.8) this morning, his hemoglobin decreased to 11.2. His BUN is 138, creatinine 7.61. Increase in AST, 3-4, and ALT, up to 113. Phosphorus 5.0, remaining 9, calcium 6.6, remaining well. Creatinine Kinase remains elevated, showing improvements, to 6149. His procalcitonin returned at > 100. His blood cultures were positive for Enterobacter cloacae without resistance noted, patient placed on cefepime - discontinued Rocephin and Zithromax. Patient remained Levophed at 0.09 mcg/kg/min (7.26 mcg/min) and propofol 40 mcg/kg/min. Blood pressure this morning 113/52. He will be started on vital HP 10 cc/h, with a goal being 37 cc/h. 09/07/24 - Patient seen at bedside today, remaining in the ICU, day 3 of [facility]. Admitted on 09/05/24 and in the ICU since that time. He has been intubated on mechanical ventilation since 09/05/24. He remains on assist- control with a rate of 20, volume 450, FiO2 50% and a PEEP of 8. ABG this morning showed pO2 59, pCO2 34, pH 7.46 which indicated respiratory alkalosis with some metabolic alkalosis - this was done while the patient was on an FiO2 of 40%. At that time, patient's FiO2 was up to 50% and his PEEP was increased to 8, since that time he has been saturating well. This morning his WBCs are 9.9, hemoglobin 10.1, platelet count 76, sodium 134, BUN 88, creatinine 4.68, calcium 6.4 and ionized calcium 3.7. Most recent creatinine kinase 2760. Because of the patient's relative hypocalcemia he received 1 g of calcium gluconate. The CVP has been slightly elevated since its insertion, at the time of insertion read ~9, however when seen the patient it was reading 6 indicated the patient is likely euvolemic. Patient remains on Levophed 0.01 mcg/kg/min (8 mcg/min), and on propofol 40 mcg/kg/min and vital HP at 30 cc/h (goal of 37 cc/h). He remains on cefepime and lactated ringer 100 cc/h. His urine was positive, preliminarily, for gram-negative bacilli. Preliminary results of blood culture showed Enterobacter cloacae and Serratia marcescens. 09/08/24 - Patient seen at bedside today, remaining in the ICU, day 4 of hospitalization. Admitted on 09/05/24 and in the ICU since that time. He has been intubated and mechanically ventilated since 09/05/24. He remains on assist-control with a rate of 20, volume 450, FiO2 50% and PEEP of 8. ABG done this morning showed pO2 60, pCO2 32, pH 7.45 indicating a respiratory alkalosis with some evidence of metabolic alkalosis. Patient uneventful overnight. WBCs 10.2, hemoglobin 9.4, sodium 133, BUN 63, creatinine 3.91, calcium 6.7. Patient CVP has been elevated, most recently at 12, indicating some possible hypervolemia. Patient allan on propofol 30 mcg/kg/min, Levophed 0.23 mcg/kg/min (~19 mcg/min), and cefepime. Patient's hemodialysis yesterday, 500 cc was removed. Per the hemodialysis nurse, patient's blood pressure dropped at the start of treatment, leading to pressors being increased at that time. Urine culture now final, positive for Enterobacter cloacae. Blood culture remains preliminary at this time for Enterobacter cloacae and Serratia marcescens. The patient is seen today September 09, 2024 in follow-up in the intensive care unit. He remains intubated on the mechanical ventilator and assist-control mode at a rate of 20, tidal volume 450, FiO2 50% and a PEEP of 8. Morning blood gases revealed a PaO2 of 86, pCO2 33 and a pH of 7.45. He is currently on norep inephrine at 27 mcg/min. Vasopressin at 0.03 units/min. Propofol at 30 mcg/kg/min. Lactated Ringer's at 10 mL/h. Receiving vital HP at 37 mL/h which is goal. He remains on cefepime for Enterobacter Cloacae in the urine. Enterobacter Cloacae and Serratia marcescens in the blood. Have a Tmax last night of 103.4. Currently 99.4. White count 13.5. Hemoglobin 9.6. Platelets 119. Sodium 133. Potassium 3.9. Bicarb 21. BUN 59. Creatinine 3.35. Glucose 245. He is continued on DuoNeb and elations. Heparin for DVT prophylaxis. Remains on Levemir and Lovenox sliding scale. He is currently in a +1.8 L balance. Chest x-ray shows persistent mild to moderate central vascular congestion bilaterally. He has been receiving hemodialysis. On 09/10/2024, the patient is being seen for a follow-up. Remains intubated on the mechanical ventilator. This morning, the patient is on propofol running at 30 mcg/kg/min. He is calm and comfortable and synchronous on mechanical ventilator. He is on assist-control mode of mechanical ventilation at rate of 20, tidal volume of 450, FiO2 of 50% with a PEEP of 5. His chest x-ray from today showing pulmonary vascular congestion and possibly some small bilateral pleural effusion. ET tube is around 4 cm above the nicol. No airspace disease or any consolidations noted. The pH is at 7.39 with a pCO2 of 34 and pO2 of 62. The patient is currently on pressors and is on norepinephrine running at 0.13 mcg/kg/min and he is also on vasopressin physiologic dose regarding his underlying gram-negative sepsis. Antibiotic coverage with IV cefepime for now. Afebrile, urine output is in the order of 5 cc an hour as the patient has developed an acute on top of chronic kidney injury and the fluid balance over the past 24 hours is +2.0 L. The patient is undergoing hemodialysis for now. Hemodialysis catheter is in the right femoral vein. His last hemodialysis session was on 09/09/2024 and another session of hemodialysis is to be done today. The patient blood work from today shows a WBC count of 11.3 with a hemoglobin of 9.7 and a platelet count of 116. Sodium is at 131, bicarb is at 18, potassium is at 4.4, BUN is 81 with a creatinine of 3.8. His liver function tests have improved including a drop in the AST and ALT. Alkaline phosphatase is also down to 218. Albumin is at 1.8 with a total protein of 4.4. As stated earlier, the cultures were positive for Enterobacter in his urine and blood. The blood also showed Serratia marcescens. His echocardiogram done during this current admission shows impaired LV function with an ejection fraction of 30% and there is global decrease in the contractility probably due to his underlying sepsis. He is receiving enteral feeding for nutritional support and is currently on THP vital HP vital HP at a rate of 37 cc an hour. IVF are KVO. On 09/11/2024, the patient is being seen in follow-up in the intensive care unit. The patient remains intubated on the mechanical ventilator. This morning, the patient is on propofol running at 50 mcg/kg/min. Earlier this morning, a blood gas was done as the patient was on a assist-control mode at a rate of 20 with a tidal volume of 450 and FiO2 of 50% with a PEEP of 8. The patient was found to be hypoxic with a pH of 7.41 with a pCO2 of 34 and pO2 54. The PEEP accordingly was brought up to 12. Current pulse ox is around 92 to 93%. The patient is still having episodes of fever. Remains septic and the patient remains on pressors and the patient is currently on norepinephrine running with 0.13 mcg/kg/min and vasopressin at 0.03 units. The patient is on IV cefepime. A CAT scan of the abdomen and pelvis was done yesterday and the patient was found to have consolidation in lung bases bilaterally consistent with pneumonia. Based on that, I recommended broadening his antibiotic coverage. Noted the patient was also supposed to undergo hemodialysis yesterday. He did have a problem with his hemodialysis catheter and the dial ysis was not successful. Based on that, the catheter was exchanged and the patient was given another dialysis catheter in his left femoral vein today. Hemodialysis to follow today. The patient remains on vital high-protein for enteral feeding and titrate support at rate of 48 cc an hour. Meanwhile, he is white cell count of 12.6 with a hemoglobin 8.9 and platelet count of 155. BUN is 92 with a creatinine of 4.5 and a sodium levels at 1 of 32 and a potassium level is at 4.4. Serum bicarb is 18. Calcium level is at 7.1. LFTs are within normal limits. Sputum samples were sent for culture. Antibiotic modification was done and the patient was taken off the cefepime and the patient was started on a combination of IV Invanz and Vanco mycin. The patient remains on amiodarone 200 mg p.o. twice a day. The patient is on DuoNeb nebulized treatments [id number]. He is receiving Levemir insulin 20 units twice daily and NovoLog sliding scale coverage. On 09/12/2024, the patient remains intubated on mechanical ventilator. No significant change in his condition since yesterday. Noted the patient was given a session of hemodialysis yesterday and is undergoing another session of hemodialysis this morning. The patient remains sedated on propofol. He remains on 50 mcg/kg/min and the patient will be given a sedation holiday to assess his underlying mental status. He remains on the mechanical ventilator assist- control mode with rate of 20, tidal volume of 450, FiO2 55% with a PEEP of 12. Blood gas showed a pH of 7.47 with a pCO2 of 34 and a pO2 of 81. He is still having episodes of fever with a temperature of 101.6. His antibiotics is modified and the patient is currently on a combination of IV Invanz and vancomycin. Pressor requirements have improved since yesterday and the patient is currently on norepinephrine running at 0.04 mcg/kg/min and the patient is on a vasopressin physiologic dose. IV fluids are KVO. He is on vital high-protein at rate of 35 cc an hour. WBC count is 11 with a hemoglobin of 8.4 and a platelet count of 164. Sodium is at 128, BUN is 63 with a creatinine of 3.58. Potassium levels of 4.2. Sputum samples were obtained yesterday and results are still pending for now. Meanwhile, the patient will be kept on the same antibiotic coverage. Remains on Levemir insulin and the patient is on 20 units twice daily and NovoLog sliding scale coverage. On 09/13/2024, the patient's condition is essentially unchanged. The patient remains sedated and the patient remains on propofol which is running at 50 mcg/kg/min. Remains on the mechanical ventilator, this morning is on assist- control rate of 20, tidal volume of 450, FiO2 55% with a PEEP of 12. Most recent blood gas from this morning showed a pH of 7.47 with a pCO2 of 37 and pO2 of 97. The patient has no major respiratory secretions. The sputum sample that was collected earlier was negative. The chest x-ray findings are essentially unchanged and the patient continues to have stable bibasilar atelectatic changes/limited consolidation. In terms of antibiotic coverage, the patient is currently on a combination of Invanz and vancomycin. He is off norepinephrine. Vasopressin is running at physiologic dose of 0.03 units/min. He is having limited diarrhea. He is on vital high-protein at rate of 35 cc an hour. In terms of his blood work, the white cell count is at 9.9 with a hemoglobin 7.3 and a platelet count of 184. BUN is 52 with a creatinine of 2.8 and a sodium levels at 128 and a potassium level is at 4. Vancomycin trough level was 15. On 09/14/2024, the patient is being seen for a follow-up. The patient is off sedation since yesterday. He is not following commands. Not opening his eyes. Only grimaces to deep painful stimulation. Will continue monitoring his mental status. He remains on mechanical ventilator, assist-control mode rate of 20, t idal volume of 450, FiO2 40% with a PEEP of 10. The blood gas showed a pH of 7.49 with a pCO2 of 38 and a pO2 of 78. He remains on norepinephrine at a dose of 0.02 mcg/kg/min. Underwent hemodialysis yesterday with a total of 1.5 L of ultrafiltration. Continues to have episodes of fever with a Tmax of 102. Remains on a combination of IV Invanz and vancomycin. The patient is receiving enteral feeding for nutritional support. He remains on vital high-protein at rate of 30 cc an hour. LFTs are normal. Nevertheless, the bilirubin is quite elevated and there has been ongoing elevation in bilirubin level which is currently up to 6.8. AST 77, ALT is 39. CAT scan of the abdomen and pelvis showed gallstones. No evidence of biliary dilatation or intrahepatic ductal dilatation. The rest of the blood work from today shows a WC of 10.2, hemoglobin 7.9 and platelet count of 232. Sodium is at 128, BUN is 48 with a creatinine of 2.6. On 09/15/2024, the patient is still off sedation and the patient has been off sedation for the past 24 hours. Slightly more arousable on today's evaluation. He tries to move upon tactile stimulation. Does not respond to any verbal commands. He remains intubated on the mechanical ventilator. He remains on assist-control mode rate of 20, tidal volume of 450, FiO2 40% with a PEEP of 5. Blood gas showed a pH of 7.47 with a pCO2 of 40 and pO2 128. Chest x-ray findings are unchanged. He underwent hemodialysis yesterday another session of hemodialysis to be done today. Remains on norepinephrine running at 0.07 mcg/kg/min. The patient is also on vital high-protein at rate of 75 cc an hour. Bilirubin remains elevated. Ultrasound abdomen showed evidence of chronic liver disease possibly cirrhosis. There is also cholelithiasis without evidence of any cholecystitis. There is also moderate hepatomegaly. The bilirubin from today is at 7.1. LFTs remain elevated and the patient has a cholestatic picture. Sodium is at 130 with a potassium of 4 and a chloride of 95 and a serum bicarb is 27. White second 11.5 with hemoglobin 7.4. Ammonia levels are nonelevated. The patient is currently afebrile although he did have a low-grade temperature of 100.3 overnight. On 09/16/2024, neurologically, the patient remains unchanged. Has been off sedation for the past 3 days. He does react to repeated stimulation and tactile stimulation and painful stimulation. Nevertheless, he does not open his eyes spontaneously. Does not follow commands yet. He is afebrile. Remains on a mechanical ventilator assist-control mode with rate of 20, tidal volume of 400, FiO2 of 40% with a PEEP of 8. pH is 7.43 with a pCO2 of 41 and pO2 of 110. C hest x-ray findings are stable. Remains on low-dose norepinephrine 0.04 mcg/kg/min. Hemodialysis was performed yesterday with a total of 1.5 L of ultrafiltration. He is on vital high-protein at rate of 55 cc an hour. The white cell count is at 10 with a hemoglobin 7.5 and platelet count of 342. Sodium is 129, BUN is 51 with a creatinine of 2.3 and a potassium level is at 4.1. Remains on broad-spectrum antibiotics. Remains on vancomycin and IV Invanz. Remains quite jaundiced. Awaiting follow-up liver function test. Objective - Vital Signs Vital signs: Vital Signs Temp 100.1 F H 09/16/24 08:00 Pulse 76 09/16/24 11:25 Resp 25 H 09/16/24 11:00 BP 138/61 09/16/24 09:45 Pulse Ox 98 09/16/24 11:00 FiO2 40 09/16/24 11:16 Intake & Output 09/15/24 09/16/24 09/16/24 18:59 06:59 18:59 Intake Total 202.604 6518.477 299.185 Output Total 33 3309 Balance 623.529 -1711.523 299.185 Weight 90 kg 89.6 kg Intake: IV 176 208 64 LR 110 130 40 a line + CVP 66 78 24 Intake, IV Titration 65.529 134.477 40.185 Amount Norepinephrine 8 mg In 65.529 134.477 40.185 Sodium Chloride 0.9% 250 ml @ 0.03 MCG/KG/MIN 4. 737 mls/hr IV .Q24H [facility] Rx#:[id number] Tube Feeding 415 665 165 Hemodialysis 500 Other 90 30 Output: Urine 33 9 Hemodialysis 1900 Hemodialysis Net Amount 1400 Other: Voiding Method Indwelling Catheter Indwelling Catheter ABP, PAP, CO, CI - Last Documented Arterial Blood Pressure 155/50 - Exam GENERAL EXAM: Intubated, sedated 64-year-old male patient on the mechanical ventilator, in no apparent distress. Calm and comfortable, off sedation, u nresponsive, grimaces only to painful stimulation. HEAD: Normocephalic. EYES: Normal reaction of pupils, equal size. NOSE: Clear with pink turbinates. THROAT: Oral endotracheal and gastric tube secured in place. No erythema or exudates. NECK: No masses, no JVD.left IJ tripple lumen and tight radial art line and a right femeral HD cath. CHEST: No chest wall deformity. LUNGS: Equal air entry with coarse scattered rhonchi. CVS: Distant heart tones. S1 and S2 normal with no audible murmur, regular rhythm. ABDOMEN: No hepatosplenomegaly, normal bowel sounds, no guarding or rigidity. SPINE: No scoliosis or deformity SKIN: No rashes CENTRAL NERVOUS SYSTEM: No focal deficits, tone is normal in all 4 extremities. EXTREMITIES: There is 1+ peripheral edema. No clubbing, no cyanosis. Peripheral pulses are intact. - Labs CBC & Chem 7: 09/16/24 05:20 09/16/24 05:20 Labs: Abnormal Lab Results - Last 24 Hours (Table) 09/15/24 09/16/24 09/16/24 Range/Units 17:39 00:09 05:20 WBC (3.8-10.6) k/uL RBC (4.30-5.90) m/uL Hgb (13.0-17.5) gm/dL Hct (39.0-53.0) % RDW (11.5-15.5) % Neutrophils # (Manual) (1.3-7.7) k/uL ABG pO2 (83-108) mmHg ABG HCO3 (21-25) mmol/L ABG Total CO2 (19-24) mmol/L ABG O2 Saturation (94-97) % Hemoglobin (13.0-17.5) gm/dL Sodium 129 L (137-145) mmol/L BUN 51 H (9-20) mg/dL Creatinine 2.32 H (0.66-1.25) mg/dL Glucose 162 H (74-99) mg/dL POC Glucose (mg/dL) 130 H 162 H (70-110) mg/dL Calcium 7.2 L (8.4-10.2) mg/dL Total Bilirubin 3.8 H (0.2-1.3) mg/dL AST 67 H (17-59) U/L ALT 71 H (4-49) U/L Alkaline Phosphatase 264 H (38-126) U/L Total Protein 5.1 L (6.3-8.2) g/dL Albumin 1.9 L (3.5-5.0) g/dL 09/16/24 09/16/24 09/16/24 Range/Units 05:20 05:38 05:55 WBC 10.9 H (3.8-10.6) k/uL RBC 2.58 L (4.30-5.90) m/uL Hgb 7.5 L (13.0-17.5) gm/dL Hct 23.2 L (39.0-53.0) % RDW 16.1 H (11.5-15.5) % Neutrophils # (Manual) 8.20 H (1.3-7.7) k/uL ABG pO2 110 H (83-108) mmHg ABG HCO3 27 H (21-25) mmol/L ABG Total CO2 29 H (19-24) mmol/L ABG O2 Saturation 98.8 H (94-97) % Hemoglobin 7.4 L (13.0-17.5) gm/dL Sodium (137-145) mmol/L BUN (9-20) mg/dL Creatinine (0.66-1.25) mg/dL Glucose (74-99) mg/dL POC Glucose (mg/dL) 177 H (70-110) mg/dL Calcium (8.4-10.2) mg/dL Total Bilirubin (0.2-1.3) mg/dL AST (17-59) U/L ALT (4-49) U/L Alkaline Phosphatase (38-126) U/L Total Protein (6.3-8.2) g/dL Albumin (3.5-5.0) g/dL 09/16/24 Range/Units 11:24 WBC (3.8-10.6) k/uL RBC (4.30-5.90) m/uL Hgb (13.0-17.5) gm/dL Hct (39.0-53.0) % RDW (11.5-15.5) % Neutrophils # (Manual) (1.3-7.7) k/uL ABG pO2 (83-108) mmHg ABG HCO3 (21-25) mmol/L ABG Total CO2 (19-24) mmol/L ABG O2 Saturation (94-97) % Hemoglobin (13.0-17.5) gm/dL Sodium (137-145) mmol/L BUN (9-20) mg/dL Creatinine (0.66-1.25) mg/dL Glucose (74-99) mg/dL POC Glucose (mg/dL) 223 H (70-110) mg/dL Calcium (8.4-10.2) mg/dL Total Bilirubin (0.2-1.3) mg/dL AST (17-59) U/L ALT (4-49) U/L Alkaline Phosphatase (38-126) U/L Total Protein (6.3-8.2) g/dL Albumin (3.5-5.0) g/dL Microbiology - Last 24 Hours (Table) 09/12/24 13:31 Urine Culture - Final Urine,Catheterized Gram Neg Bacilli 09/14/24 15:40 Blood Culture - Preliminary Blood 09/12/24 18:57 Blood Culture - Preliminary Blood Assessment and Plan Plan: Acute hypoxic respiratory failure, requiring mechanical ventilation and intubati on on 09/05/24. Respiratory failure is multifactorial. The patient presented with significant metabolic derangements, acute on top of chronic renal failure, sepsis and decompensated heart failure. Remains intubated on mechanical ventilator and the chest x-ray is consistent with CHF.Repeat chest x-ray from today shows stable findings with scattered infiltrates that are unchanged. Patient has lower lobe consolidation suggestive of pneumonia. The patient is currently on a combination of IV Invanz and vancomycin. The blood gases are stable from today. The patient remains intubated on the mechanical ventilator with ongoing respiratory support. Sputum samples are negative. Chest x-ray fi ndings remain stable Episodes of fever, currently afebrile Cholestatic picture with elevated bilirubin level, ultrasound of the liver shows hepatomegaly and possibly static pictures versus a component of liver cirrhosis Acute rhabdomyolysis, resolved, and the CPK levels have been downtrending Acute on top of chronic kidney disease. The patient is known to have stage 3 chronic kidney disease and the patient developed an acute kidney injury/ATN, currently on hemodialysis, femoral hemodialysis catheter was placed on the left femoral vein and the patient has undergone hemodialysis, underwent dialysis yesterday another session to be done today Systolic heart failure with an ejection fraction of 30% Elevated troponins, in setting of acute renal failure Sepsis, secondary to urinary tract infection. Noted Enterobacter cloacae was cultured in the urine and the blood and the blood culture is also positive for Serratia marcescens. The patient is on IV antibiotics patient remains on low- dose norepinephrine Altered mentation, rule out metabolic encephalopathy, rule out drug-induced en cephalopathy. Hepatic encephalopathy is felt to be less likely. Ammonia level is not elevated. Uremic encephalopathy could also contribute to his condition. Sluggishly reactive and responsive and the patient has been off sedation for the past 72 hours. Leukocytosis secondary to above, improving Hypertension Mechanical fall, is on home 2 weeks prior Hyperkalemia, resolved Anion gap metabolic acidosis, resolved Hyperphosphatemia, improving Hypocalcemia likely secondary to decreased albumin History of hypertension Hyperlipidemia diabetes mellitus type 2 Hx of frequent UTIs Right kidney mass, post cryoablation at [facility] (renal cell ca) Plan: Continue ventilator support, changed the PEEP down to 6 Monitor mental status, slow but ongoing improvement and the patient seems to be more reactive. Nevertheless, remains unresponsive not following any commands No sedatives Hemodialysis was completed yesterday on 09/15/2024 with a total of 1.5 L of ultrafiltration. Chest x-ray was noted and the findings are essentially stable Continue IV Invanz and vancomycin Monitor fever pattern Patient is currently on low-dose norepinephrine CAT scan of the abdomen and pelvis was noted, the patient has gallstones. Continue Levemir insulin 20 units twice daily along with a sliding scale coverage Dilaudid for pain control Continue bronchodilators Heparin for DVT prophylaxis Enteral feeding for nutritional support and the patient is currently on vital HP Significant impairment in mental status off propofol. Will continue monitoring the mentation we will keep the patient off sedation. We will continue to follow and make further recommendations based on his clinical status Not ready for weaning at this point in time due to above-mentioned comorbidities. Evaluation was done more than 30 minutes and this is a critical care evaluation I had a lengthy discussion with the sister at the bedside. Long-term prognosis poor based on above-mentioned comorbidities. Time with Patient: Greater than 30
[2024-09-16 17:44] LABS: Glucose,Whole Blood 173 mg/dL (70-110)
--- NOTE | 2024-09-16 19:30 | CT ---
EXAMINATION TYPE: CT brain wo con DATE OF EXAM: 09/16/2024 7:07 PM COMPARISON: 09/04/2024. CLINICAL INDICATION: Male, 64 years old with history of possible seizure, Patient intubated x 10 days . Possible seizure. TECHNIQUE: Brain: Axial CT images of the brain were obtained with coronal and sagittal reformats created and rev iewed. Contrast used: None. Oral contrast used: None. CT DLP: 1213.4 mGycm, Automated exposure control for dose reduction was used. FINDINGS: Brain: Extra-axial spaces: No abnormal extra-axial fluid collections. Ventricular system: Dilatation in proportion to cerebral atrophy. Cerebral parenchyma: Cerebral atrophy. No acute intraparenchymal hemorrhage or mass effect. The rosales -white junction is well differentiated. Scattered hypoattenuating areas are seen within the white mat ter. Cerebellum: Unremarkable. Mass effect: No evidence of midline shift. Intracranial vasculature: Atherosclerotic calcifications of the intracranial vessels. Soft tissues: Normal. Calvarium/osseous structures: No depressed skull fracture. 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 Paranasal sinuses and mastoid air cells: Mild scattered paranasal sinus disease. Opacified bilateral mastoid air cells right greater than left. Right middle ear effusion present left middle ear effusion present. Visualized orbits: Bilateral aphakia Support tubes partially visualized IMPRESSION: 1. No acute intracranial process. 2. Bilateral mastoid air cell and middle ear effusions correlate for otomastoiditis. [facility], , 09/16/2024 7:27 PM
[2024-09-16] MEDS: levETIRAcetam IV 500 MG/5 ML VIAL IVP SCH (20:29)
[2024-09-16 23:25] LABS: Glucose,Whole Blood 132 mg/dL (70-110)
[2024-09-17 05:22] LABS: ABG Base Excess 0.4 mmol/L; ABG HCO3 25 mmol/L (21-25); ABG Oxygen Saturation 99.4 % (94-97); ABG PCO2 40 mmHg (35-45); ABG PH 7.41 (7.35-7.45); ABG PO2 124 mmHg (83-108); ABG TCO2 26 mmol/L (19-24); Allen Test Performed? Yes
--- NOTE | 2024-09-17 05:28 | P.PN ---
Subjective Progress Note Date: 09/14/24 Principal diagnosis: Reason for follow-up is sepsis and bacteremia Patient is a 64-year-old male with a past medical history significant for diabetes mellitus hyperlipidemia, chronic kidney disease patient has been brought to the hospital after the patient was found on the ground for unknown amount of time patient was noted to be septic requiring admission to the ICU on the ventilator subsequent did have a positive blood culture with Enterobacter. On today's evaluation that is 09/14/2024, the patient did spike a fever of 102.2 F this morning patient is requiring some pressor support patient reported to stable no significant purulent secretion through the ET, diarrhea or any other changes reported Patient white count is 10.2 creatinine is 2.69 Objective - Vital Signs Vital signs: Vital Signs Temp 102.2 F H 09/14/24 09:45 Pulse 72 09/14/24 12:15 Resp 25 H 09/14/24 12:15 BP 137/64 09/14/24 12:15 Pulse Ox 96 09/14/24 12:15 FiO2 40 09/14/24 11:29 Intake & Output 09/13/24 09/14/24 09/14/24 18:59 06:59 18:59 Intake Total 1232.932 780.739 283.423 Output Total 3410 15 5 Balance -2177.068 765.739 278.423 Weight 90.5 kg Intake: IV 192 192 146 Ertapenem 0.5 gm In 50 Sodium Chloride 0.9% 50 ml @ 100 mls/hr IVPB Q24H [facility] Rx#:[id number] LR 120 120 60 a line + CVP 72 72 36 Intake, IV Titration 200.932 78.739 37.423 Amount Norepinephrine 8 mg In 57.028 78.739 37.423 Sodium Chloride 0.9% 250 ml @ 0.03 MCG/KG/MIN 4. 737 mls/hr IV .Q24H [facility] Rx#:[id number] Vasopressin 60 unit In 74.716 Sodium Chloride 0.9% 150 ml @ 0.03 UNITS/MIN 4.59 mls/hr IV .Q24H [facility] Rx#: [id number] propofoL 1,000 mg In 69.188 Empty Bag 1 bag @ 15 MCG/ KG/MIN 6.75 mls/hr IV . [id number] [facility] Rx#:[id number] Tube Feeding 350 420 70 Hemodialysis 400 Other 90 90 30 Output: Urine 10 15 5 Hemodialysis 1900 Hemodialysis Net Amount 1500 Other: Voiding Method Indwelling Catheter Indwelling Catheter # Bowel Movements 0 0 0 ABP, PAP, CO, CI - Last Documented Arterial Blood Pressure 94/41 - Exam GENERAL DESCRIPTION: An elderly male intubated on the vent RESPIRATORY SYSTEM: Unlabored breathing , decreased breath sounds at bases HEART: S1 S2 regular rate and rhythm , ABDOMEN: Soft , no tenderness EXTREMITIES: No edema feet - Labs CBC & Chem 7: 09/16/24 05:20 09/16/24 05:20 Labs: Abnormal Lab Results - Last 24 Hours (Table) 09/12/24 09/13/24 09/13/24 Range/Units 23:41 16:51 18:23 RBC (4.30-5.90) m/uL Hgb (13.0-17.5) gm/dL Hct (39.0-53.0) % Neutrophils # (1.3-7.7) k/uL ABG pH (7.35-7.45) ABG pO2 (83-108) mmHg ABG HCO3 (21-25) mmol/L ABG Total CO2 (19-24) mmol/L Hemoglobin (13.0-17.5) gm/dL Sodium (137-145) mmol/L Chloride (98-107) mmol/L BUN (9-20) mg/dL Creatinine (0.66-1.25) mg/dL POC Glucose (mg/dL) 154 H 134 H 133 H (70-110) mg/dL Calcium (8.4-10.2) mg/dL Total Bilirubin (0.2-1.3) mg/dL AST (17-59) U/L Alkaline Phosphatase (38-126) U/L Total Protein (6.3-8.2) g/dL Albumin (3.5-5.0) g/dL 09/13/24 09/14/24 09/14/24 Range/Units 23:32 05:30 05:30 RBC 2.45 L (4.30-5.90) m/uL Hgb 7.9 L (13.0-17.5) gm/dL Hct 21.9 L (39.0-53.0) % Neutrophils # 8.2 H (1.3-7.7) k/uL ABG pH (7.35-7.45) ABG pO2 (83-108) mmHg ABG HCO3 (21-25) mmol/L ABG Total CO2 (19-24) mmol/L Hemoglobin (13.0-17.5) gm/dL Sodium 128 L (137-145) mmol/L Chloride 96 L (98-107) mmol/L BUN 48 H (9-20) mg/dL Creatinine 2.69 H (0.66-1.25) mg/dL POC Glucose (mg/dL) 113 H (70-110) mg/dL Calcium 7.2 L (8.4-10.2) mg/dL Total Bilirubin 6.8 H (0.2-1.3) mg/dL AST 77 H (17-59) U/L Alkaline Phosphatase 237 H (38-126) U/L Total Protein 5.1 L (6.3-8.2) g/dL Albumin 1.9 L (3.5-5.0) g/dL 09/14/24 09/14/24 Range/Units 05:50 11:09 RBC (4.30-5.90) m/uL Hgb (13.0-17.5) gm/dL Hct (39.0-53.0) % Neutrophils # (1.3-7.7) k/uL ABG pH 7.49 H (7.35-7.45) ABG pO2 78 L (83-108) mmHg ABG HCO3 29 H (21-25) mmol/L ABG Total CO2 30 H (19-24) mmol/L Hemoglobin 7.3 L (13.0-17.5) gm/dL Sodium (137-145) mmol/L Chloride (98-107) mmol/L BUN (9-20) mg/dL Creatinine (0.66-1.25) mg/dL POC Glucose (mg/dL) 115 H (70-110) mg/dL Calcium (8.4-10.2) mg/dL Total Bilirubin (0.2-1.3) mg/dL AST (17-59) U/L Alkaline Phosphatase (38-126) U/L Total Protein (6.3-8.2) g/dL Albumin (3.5-5.0) g/dL Microbiology - Last 24 Hours (Table) 09/12/24 13:31 Urine Culture - Preliminary Urine,Catheterized Gram Neg Bacilli 09/12/24 18:57 Blood Culture - Preliminary Blood 09/11/24 10:45 Gram Stain - Final Sputum Sputum Culture - Final Assessment and Plan (1) Sepsis Current Visit: Yes Status: Acute Code(s): A41.9 - SEPSIS, UNSPECIFIED ORGANISM SNOMED Code(s): 07132097 (2) Pneumonia Current Visit: Yes Status: Acute Code(s): J18.9 - PNEUMONIA, UNSPECIFIED ORGANISM SNOMED Code(s): 767063550 (3) UTI (urinary tract infection) Current Visit: No Status: Acute Code(s): N39.0 - URINARY TRACT INFECTION, SITE NOT SPECIFIED SNOMED Code(s): 41494365 Plan: 1patient with sepsis in this patient who did have a fever hyortension requiring pressor support maintaining criteria for SIRS source is likely UTI pneumonia not entirely excluded 2-blood culture came back positive with Enterobacter and Serratia, urine is growing Enterobacter 3-patient CT abdominal pelvis did not show any intra-abdominal pelvic abscess concerning for bibasilar pneumonia and cholelithiasis 4patient did have some improvement in his fever pattern and his white count is normalized 5- patient is currently covered with vancomycin and ertapenem to be continued while watching his kidney function closely however consider discontinuation of the vancomycin if no MRSA Dictation was produced using [employer] dictation software. please excuse any grammatical, word or spelling errors. Time with Patient: Less than 30
--- NOTE | 2024-09-17 05:29 | P.PN ---
Subjective Progress Note Date: 09/16/24 Principal diagnosis: Reason for follow-up is sepsis and bacteremia Patient is a 64-year-old male with a past medical history significant for diabetes mellitus hyperlipidemia, chronic kidney disease patient has been brought to the hospital after the patient was found on the ground for unknown amount of time patient was noted to be septic requiring admission to the ICU on the ventilator subsequent did have a positive blood culture with Enterobacter. On today's evaluation that is 09/16/2024 patient did have a low-grade fever 100.1 F this morning patient is requiring pressor support but lesser amount no significant purulent secretions from the ET diarrhea or urinary changes reported Patient white count is 10.9 creatinine is 2.32 Objective - Vital Signs Vital signs: Vital Signs Temp 99.9 F H 09/16/24 20:00 Pulse 89 09/16/24 20:15 Resp 24 09/16/24 20:15 BP 138/61 09/16/24 09:30 Pulse Ox 98 09/16/24 20:15 FiO2 40 09/16/24 18:48 Intake & Output 09/16/24 09/16/24 09/17/24 06:59 18:59 06:59 Intake Total 1597.477 983.372 84.290 Output Total 3309 20 0 Balance -1711.523 963.372 84.290 Weight 89.6 kg Intake: IV 208 176 16 LR 130 110 10 a line + CVP 78 66 6 Intake, IV Titration 134.477 112.372 13.290 Amount Norepinephrine 8 mg In 134.477 112.372 13.290 Sodium Chloride 0.9% 250 ml @ 0.03 MCG/KG/MIN 4. 737 mls/hr IV .Q24H [facility] Rx#:[id number] Tube Feeding 665 605 55 Hemodialysis 500 Other 90 90 Output: Urine 9 20 0 Hemodialysis 1900 Hemodialysis Net Amount 1400 Other: Voiding Method Indwelling Catheter Indwelling Catheter ABP, PAP, CO, CI - Last Documented Arterial Blood Pressure 141/51 - Exam GENERAL DESCRIPTION: An elderly male intubated on the vent RESPIRATORY SYSTEM: Unlabored breathing , decreased breath sounds at bases HEART: S1 S2 regular rate and rhythm , ABDOMEN: Soft , no tenderness EXTREMITIES: No edema feet - Labs CBC & Chem 7: 09/16/24 05:20 09/16/24 05:20 Labs: Abnormal Lab Results - Last 24 Hours (Table) 09/16/24 09/16/24 09/16/24 Range/Units 00:09 05:20 05:20 WBC 10.9 H (3.8-10.6) k/uL RBC 2.58 L (4.30-5.90) m/uL Hgb 7.5 L (13.0-17.5) gm/dL Hct 23.2 L (39.0-53.0) % RDW 16.1 H (11.5-15.5) % Neutrophils # (Manual) 8.20 H (1.3-7.7) k/uL ABG pO2 (83-108) mmHg ABG HCO3 (21-25) mmol/L ABG Total CO2 (19-24) mmol/L ABG O2 Saturation (94-97) % Hemoglobin (13.0-17.5) gm/dL Sodium 129 L (137-145) mmol/L BUN 51 H (9-20) mg/dL Creatinine 2.32 H (0.66-1.25) mg/dL Glucose 162 H (74-99) mg/dL POC Glucose (mg/dL) 162 H (70-110) mg/dL Calcium 7.2 L (8.4-10.2) mg/dL Total Bilirubin 3.8 H (0.2-1.3) mg/dL AST 67 H (17-59) U/L ALT 71 H (4-49) U/L Alkaline Phosphatase 264 H (38-126) U/L Total Protein 5.1 L (6.3-8.2) g/dL Albumin 1.9 L (3.5-5.0) g/dL 09/16/24 09/16/24 09/16/24 Range/Units 05:38 05:55 11:24 WBC (3.8-10.6) k/uL RBC (4.30-5.90) m/uL Hgb (13.0-17.5) gm/dL Hct (39.0-53.0) % RDW (11.5-15.5) % Neutrophils # (Manual) (1.3-7.7) k/uL ABG pO2 110 H (83-108) mmHg ABG HCO3 27 H (21-25) mmol/L ABG Total CO2 29 H (19-24) mmol/L ABG O2 Saturation 98.8 H (94-97) % Hemoglobin 7.4 L (13.0-17.5) gm/dL Sodium (137-145) mmol/L BUN (9-20) mg/dL Creatinine (0.66-1.25) mg/dL Glucose (74-99) mg/dL POC Glucose (mg/dL) 177 H 223 H (70-110) mg/dL Calcium (8.4-10.2) mg/dL Total Bilirubin (0.2-1.3) mg/dL AST (17-59) U/L ALT (4-49) U/L Alkaline Phosphatase (38-126) U/L Total Protein (6.3-8.2) g/dL Albumin (3.5-5.0) g/dL 09/16/24 Range/Units 17:42 WBC (3.8-10.6) k/uL RBC (4.30-5.90) m/uL Hgb (13.0-17.5) gm/dL Hct (39.0-53.0) % RDW (11.5-15.5) % Neutrophils # (Manual) (1.3-7.7) k/uL ABG pO2 (83-108) mmHg ABG HCO3 (21-25) mmol/L ABG Total CO2 (19-24) mmol/L ABG O2 Saturation (94-97) % Hemoglobin (13.0-17.5) gm/dL Sodium (137-145) mmol/L BUN (9-20) mg/dL Creatinine (0.66-1.25) mg/dL Glucose (74-99) mg/dL POC Glucose (mg/dL) 173 H (70-110) mg/dL Calcium (8.4-10.2) mg/dL Total Bilirubin (0.2-1.3) mg/dL AST (17-59) U/L ALT (4-49) U/L Alkaline Phosphatase (38-126) U/L Total Protein (6.3-8.2) g/dL Albumin (3.5-5.0) g/dL Microbiology - Last 24 Hours (Table) 09/12/24 13:31 Urine Culture - Final Urine,Catheterized Gram Neg Bacilli 09/14/24 15:40 Blood Culture - Preliminary Blood 09/12/24 18:57 Blood Culture - Preliminary Blood Assessment and Plan (1) Sepsis Current Visit: Yes Status: Acute Code(s): A41.9 - SEPSIS, UNSPECIFIED ORGANISM SNOMED Code(s): 62604568 (2) Pneumonia Current Visit: Yes Status: Acute Code(s): J18.9 - PNEUMONIA, UNSPECIFIED ORGANISM SNOMED Code(s): 089992575 (3) UTI (urinary tract infection) Current Visit: No Status: Acute Code(s): N39.0 - URINARY TRACT INFECTION, SITE NOT SPECIFIED SNOMED Code(s): 10929035 Plan: 1patient with sepsis in this patient who did have a fever hyortension requiring pressor support maintaining criteria for SIRS source is likely UTI pneumonia not entirely excluded 2-blood culture came back positive with Enterobacter and Serratia, urine is growing Enterobacter 3-patient CT abdominal pelvis did not show any intra-abdominal pelvic abscess concerning for bibasilar pneumonia and cholelithiasis 4patient did have some improvement in his fever pattern and his white count is normalized 5- patient being treated with vancomycin and ertapenem repeat culture has been negative so far, recommend to discontinue vancomycin and ertapenem start the patient on cefepime to cover for the Enterobacter and Serratia that was grown on the initial culture Dictation was produced using [employer] dictation software. please excuse any grammatical, word or spelling errors. Time with Patient: Less than 30
--- NOTE | 2024-09-17 05:29 | P.PN ---
Subjective Progress Note Date: 09/15/24 Principal diagnosis: Reason for follow-up is sepsis and bacteremia Patient is a 64-year-old male with a past medical history significant for diabetes mellitus hyperlipidemia, chronic kidney disease patient has been brought to the hospital after the patient was found on the ground for unknown amount of time patient was noted to be septic requiring admission to the ICU on the ventilator subsequent did have a positive blood culture with Enterobacter. On today's evaluation that is 09/15/2024 patient did have improvement in his fever pattern with a temperature of 99 F this morning, the patient is requiring less pressor support as reported by the nursing staff no significant purulent secretion through the ET or diarrhea reported Patient white count is 11.5 creatinine is 2.6 Liver enzymes are elevated Objective - Vital Signs Vital signs: Vital Signs Temp 99.0 F 09/15/24 07:15 Pulse 66 09/15/24 09:00 Resp 20 09/15/24 09:00 BP 111/59 09/15/24 09:00 Pulse Ox 100 09/15/24 09:00 FiO2 40 09/15/24 07:48 Intake & Output 09/14/24 09/15/24 09/15/24 18:59 06:59 18:59 Intake Total 486.309 855.529 47.975 Output Total 5 9 8 Balance 481.309 846.529 39.975 Weight 90.5 kg 90 kg Intake: IV 242 208 32 Ertapenem 0.5 gm In 50 Sodium Chloride 0.9% 50 ml @ 100 mls/hr IVPB Q24H [facility] Rx#:[id number] LR 120 130 20 a line + CVP 72 78 12 Intake, IV Titration 74.309 72.529 15.975 Amount Norepinephrine 8 mg In 74.309 72.529 15.975 Sodium Chloride 0.9% 250 ml @ 0.03 MCG/KG/MIN 4. 737 mls/hr IV .Q24H [facility] Rx#:[id number] Tube Feeding 140 455 Other 30 120 Output: Urine 5 9 8 Other: Voiding Method Indwelling Catheter Indwelling Catheter # Bowel Movements 1 ABP, PAP, CO, CI - Last Documented Arterial Blood Pressure 126/45 - Exam GENERAL DESCRIPTION: An elderly male intubated on the vent RESPIRATORY SYSTEM: Unlabored breathing , decreased breath sounds at bases HEART: S1 S2 regular rate and rhythm , ABDOMEN: Soft , no tenderness EXTREMITIES: No edema feet - Labs CBC & Chem 7: 09/16/24 05:20 09/16/24 05:20 Labs: Abnormal Lab Results - Last 24 Hours (Table) 09/12/24 09/14/24 09/14/24 Range/Units 23:41 11:09 11:10 WBC (3.8-10.6) k/uL RBC (4.30-5.90) m/uL Hgb (13.0-17.5) gm/dL Hct (39.0-53.0) % Neutrophils # (1.3-7.7) k/uL Haptoglobin 402.0 H (31.2-198.0) mg/dL ABG pH (7.35-7.45) ABG pO2 (83-108) mmHg ABG HCO3 (21-25) mmol/L ABG Total CO2 (19-24) mmol/L ABG O2 Saturation (94-97) % Hemoglobin (13.0-17.5) gm/dL Sodium (137-145) mmol/L Chloride (98-107) mmol/L BUN (9-20) mg/dL Creatinine (0.66-1.25) mg/dL POC Glucose (mg/dL) 154 H 115 H (70-110) mg/dL Calcium (8.4-10.2) mg/dL Total Bilirubin (0.2-1.3) mg/dL AST (17-59) U/L ALT (4-49) U/L Alkaline Phosphatase (38-126) U/L Total Protein (6.3-8.2) g/dL Albumin (3.5-5.0) g/dL 09/15/24 09/15/24 09/15/24 Range/Units 05:34 05:36 05:40 WBC (3.8-10.6) k/uL RBC (4.30-5.90) m/uL Hgb (13.0-17.5) gm/dL Hct (39.0-53.0) % Neutrophils # (1.3-7.7) k/uL Haptoglobin (31.2-198.0) mg/dL ABG pH 7.47 H (7.35-7.45) ABG pO2 128 H (83-108) mmHg ABG HCO3 29 H (21-25) mmol/L ABG Total CO2 30 H (19-24) mmol/L ABG O2 Saturation 99.5 H (94-97) % Hemoglobin 7.3 L (13.0-17.5) gm/dL Sodium (137-145) mmol/L Chloride (98-107) mmol/L BUN (9-20) mg/dL Creatinine (0.66-1.25) mg/dL POC Glucose (mg/dL) 51 L 51 L (70-110) mg/dL Calcium (8.4-10.2) mg/dL Total Bilirubin (0.2-1.3) mg/dL AST (17-59) U/L ALT (4-49) U/L Alkaline Phosphatase (38-126) U/L Total Protein (6.3-8.2) g/dL Albumin (3.5-5.0) g/dL 09/15/24 09/15/24 Range/Units 08:24 08:24 WBC 11.5 H (3.8-10.6) k/uL RBC 2.56 L (4.30-5.90) m/uL Hgb 7.4 L (13.0-17.5) gm/dL Hct 23.2 L (39.0-53.0) % Neutrophils # 9.3 H (1.3-7.7) k/uL Haptoglobin (31.2-198.0) mg/dL ABG pH (7.35-7.45) ABG pO2 (83-108) mmHg ABG HCO3 (21-25) mmol/L ABG Total CO2 (19-24) mmol/L ABG O2 Saturation (94-97) % Hemoglobin (13.0-17.5) gm/dL Sodium 130 L (137-145) mmol/L Chloride 95 L (98-107) mmol/L BUN 51 H (9-20) mg/dL Creatinine 2.69 H (0.66-1.25) mg/dL POC Glucose (mg/dL) (70-110) mg/dL Calcium 7.1 L (8.4-10.2) mg/dL Total Bilirubin 6.9 H (0.2-1.3) mg/dL AST 272 H (17-59) U/L ALT 101 H (4-49) U/L Alkaline Phosphatase 307 H (38-126) U/L Total Protein 5.1 L (6.3-8.2) g/dL Albumin 2.0 L (3.5-5.0) g/dL Microbiology - Last 24 Hours (Table) 09/12/24 18:57 Blood Culture - Preliminary Blood 09/12/24 13:31 Urine Culture - Preliminary Urine,Catheterized Gram Neg Bacilli Assessment and Plan (1) Sepsis Current Visit: Yes Status: Acute Code(s): A41.9 - SEPSIS, UNSPECIFIED ORGANISM SNOMED Code(s): 83347977 (2) Pneumonia Current Visit: Yes Status: Acute Code(s): J18.9 - PNEUMONIA, UNSPECIFIED ORGANISM SNOMED Code(s): 051121048 (3) UTI (urinary tract infection) Current Visit: No Status: Acute Code(s): N39.0 - URINARY TRACT INFECTION, SITE NOT SPECIFIED SNOMED Code(s): 62619558 Plan: 1patient with sepsis in this patient who did have a fever hyortension requiring pressor support maintaining criteria for SIRS source is likely UTI pneumonia not entirely excluded 2-blood culture came back positive with Enterobacter and Serratia, urine is growing Enterobacter 3-patient CT abdominal pelvis did not show any intra-abdominal pelvic abscess concerning for bibasilar pneumonia and cholelithiasis 4patient did have some improvement in his fever pattern and his white count is normalized 5- patient being treated with vancomycin and ertapenem repeat culture has been negative so far and monitoring clinical course closely Dictation was produced using [employer] dictation software. please excuse any grammatical, word or spelling errors. Time with Patient: Less than 30
[2024-09-17 05:50] LABS: Glucose,Whole Blood 49 mg/dL (70-110)
[2024-09-17 06:09] LABS: Glucose,Whole Blood 135 mg/dL (70-110)
[2024-09-17 06:42] LABS: HCT 21.2 % (39.0-53.0); Hypochromasia Slight; MCHC 32.3 g/dL (31.0-37.0); MCV 92.8 fL (80.0-100.0); Mean Platelet Volume 8.8; Platelet Count 382 k/uL (150-450); RBC 2.28 m/uL (4.30-5.90); RDW 15.9 % (11.5-15.5); WBC 9.8 k/uL (3.8-10.6)
[2024-09-17 06:51] LABS: HGB 6.9 gm/dL (13.0-17.5)
[2024-09-17 06:53] LABS: African American GFR (CKD) 20 (>60 ml/min/1.73 sqM); Anion Gap 10 mmol/L; Blood Urea Nitrogen 70 mg/dL (9-20); Calcium 6.9 mg/dL (8.4-10.2); Carbon Dioxide 23 mmol/L (22-30); Chloride 98 mmol/L (98-107); Glucose 150 mg/dL (74-99); Non-African American GFR(CKD) 17 (>60 ml/min/1.73 sqM); Potassium 4.3 mmol/L (3.5-5.1); Sodium 131 mmol/L (137-145)
--- NOTE | 2024-09-17 08:06 | XR ---
EXAMINATION TYPE: XR chest 1V portable DATE OF EXAM: 09/17/2024 5:08 AM COMPARISON: 09/16/2024 CLINICAL INDICATION: Male, 64 years old with history of intubated patient, , FINDINGS: ET and NG tubes are satisfactory. Heart borderline in size. Diffuse interstitial densities persist. P atchy mid and lower lung opacities show some improvement though with persistent retrocardiac opacity. Left CVC tip cavoatrial junction. IMPRESSION: Ongoing interstitial infiltrates/interstitial edema. Some of the more patchy densities at the lower l ungs show some improvement, particularly on the right. [facility], , 09/17/2024 8:04 AM
[2024-09-17] MEDS: CEFEPIME 1 GM in SODIUM CHLORIDE 0.9% 50 ML IVPB SCH (08:22)
--- NOTE | 2024-09-17 09:54 | P.PN ---
Subjective Patient is seen in follow-up for acute kidney injury on chronic kidney disease. Started on hemodialysis September 06, 2024 via right femoral catheter. Catheter was not functioning well and new catheter was placed September 11, 2024. On Levophed. Oliguric. Intubated. Undergoing daily dialysis. Receiving tube feeds. Tolerating dialysis well. On low-dose Levophed. Vital signs are stable. On vasopressor support. General: Resting in bed. HEENT: Intubated. LUNGS: Scattered rhonchi. HEART: Rate and Rhythm are regular. ABDOMEN: No distention. EXTREMITITES: 1+ edema. Scrotal edema noted. Objective - Vital Signs Vital signs: Vital Signs Temp 97.4 F L 09/17/24 08:00 Pulse 86 09/17/24 08:30 Resp 20 09/17/24 08:30 BP 138/61 09/16/24 22:00 Pulse Ox 97 09/17/24 08:30 FiO2 35 09/17/24 08:50 Intake & Output 09/16/24 09/17/24 09/17/24 18:59 06:59 18:59 Intake Total 983.372 962.396 192.738 Output Total 20 20 5 Balance 963.372 942.396 187.738 Weight 91.4 kg Intake: IV 176 192 32 LR 110 120 20 a line + CVP 66 72 12 Intake, IV Titration 112.372 20.396 20.738 Amount Norepinephrine 8 mg In 112.372 20.396 20.738 Sodium Chloride 0.9% 250 ml @ 0.03 MCG/KG/MIN 4. 737 mls/hr IV .Q24H [facility] Rx#:[id number] Tube Feeding 605 660 110 Other 90 90 30 Output: Urine 20 20 5 Other: Voiding Method Indwelling Catheter Indwelling Catheter # Bowel Movements 1 ABP, PAP, CO, CI - Last Documented Arterial Blood Pressure 121/54 - Labs CBC & Chem 7: 09/17/24 06:05 09/17/24 06:05 Labs: Abnormal Lab Results - Last 24 Hours (Table) 09/16/24 09/16/24 09/16/24 Range/Units 11:24 17:42 23:24 RBC (4.30-5.90) m/uL Hgb (13.0-17.5) gm/dL Hct (39.0-53.0) % RDW (11.5-15.5) % ABG pO2 (83-108) mmHg ABG Total CO2 (19-24) mmol/L ABG O2 Saturation (94-97) % Hemoglobin (13.0-17.5) gm/dL Sodium (137-145) mmol/L BUN (9-20) mg/dL Creatinine (0.66-1.25) mg/dL Glucose (74-99) mg/dL POC Glucose (mg/dL) 223 H 173 H 132 H (70-110) mg/dL Calcium (8.4-10.2) mg/dL 09/17/24 09/17/24 09/17/24 Range/Units 05:18 05:48 06:05 RBC 2.28 L (4.30-5.90) m/uL Hgb 6.9 L* (13.0-17.5) gm/dL Hct 21.2 L (39.0-53.0) % RDW 15.9 H (11.5-15.5) % ABG pO2 124 H (83-108) mmHg ABG Total CO2 26 H (19-24) mmol/L ABG O2 Saturation 99.4 H (94-97) % Hemoglobin 7.2 L (13.0-17.5) gm/dL Sodium (137-145) mmol/L BUN (9-20) mg/dL Creatinine (0.66-1.25) mg/dL Glucose (74-99) mg/dL POC Glucose (mg/dL) 49 L* (70-110) mg/dL Calcium (8.4-10.2) mg/dL 09/17/24 09/17/24 Range/Units 06:05 06:08 RBC (4.30-5.90) m/uL Hgb (13.0-17.5) gm/dL Hct (39.0-53.0) % RDW (11.5-15.5) % ABG pO2 (83-108) mmHg ABG Total CO2 (19-24) mmol/L ABG O2 Saturation (94-97) % Hemoglobin (13.0-17.5) gm/dL Sodium 131 L (137-145) mmol/L BUN 70 H (9-20) mg/dL Creatinine 3.53 H (0.66-1.25) mg/dL Glucose 150 H (74-99) mg/dL POC Glucose (mg/dL) 135 H (70-110) mg/dL Calcium 6.9 L (8.4-10.2) mg/dL Microbiology - Last 24 Hours (Table) 09/14/24 15:40 Blood Culture - Preliminary Blood 09/12/24 13:31 Urine Culture - Final Urine,Catheterized Gram Neg Bacilli 09/12/24 18:57 Blood Culture - Preliminary Blood Assessment and Plan Plan: Assessment: 1. Acute kidney injury secondary to ATN secondary to septic shock. Oliguric. No hydronephrosis noted on imaging. Started on hemodialysis September 06, 2024 via right femoral catheter; left femoral catheter was placed September 11, 2024. 2. Chronic kidney disease stage IIIb with baseline creatinine 1.8-2 secondary to diabetic kidney disease. 3. Septic shock with blood cultures positive for Enterobacter and Serratia and urine culture positive for Enterobacter. On antibiotics. 4. Metabolic acidosis secondary to acute kidney injury. Improved. 5. Diabetes mellitus. 6. Rhabdomyolysis. CK levels trending down. CK level 680 dated September 10, 2024. 7. Acute hypoxic respiratory failure. Intubated. 8. History of right renal mass not clearly seen on ultrasound this admission. Will need to see urology outpatient. 9. Volume overload. Improving with daily ultrafiltration. 10. Hypervolemic hyponatremia. Better. 11. Anemia of chronic kidney disease. On Aranesp. Hemoglobin 6.9 today. Plan: Currently seen while undergoing hemodialysis. No response in urine output status post IV Lasix given September 11 and September 16, 2024. Maintain tube feeds. Wean FiO2 and vasopressors. Continue to monitor renal function and urine output. Phosphorus level 4.0 dated September 12, 2024. Prognosis guarded. Depending on long-term plans, he will need permacath placed and temporary dialysis catheter removed this week.
[2024-09-17 11:52] LABS: Glucose,Whole Blood 121 mg/dL (70-110)
--- NOTE | 2024-09-17 13:04 | P.PN ---
Subjective Progress Note Date: 09/17/24 Principal diagnosis: Acute hypoxic respiratory failure, acute sepsis and septic shock secondary to Serratia marcescens and Enterobacter cloacae and severe LV dysfunction Patient is a 64-year-old male with past medical history significant for diabetes mellitus, chronic kidney disease, hyperlipidemia, hypertension, among other things. Patient is currently in the intensive care unit, he is a poor historian. Unable to provide reliable history. The ER provider did not contact me. Per the ER documentation, patient was found on the ground for an unknown known amount of time, last seen well 2 weeks prior by his sister. He was found to be in acute rhabdomyolysis with acute renal failure. He was also found with elevated blood sugars. CT of the brain and C-spine without contrast showing no acute intracranial process and no acute osseous abnormalities of the C-spine. Initial labs include a CBC: WBC count 17.3, hemoglobin 14.6, hematocrit 45.1, platelets 226. CMP: Sodium 136, potassium 5.7, chloride 95, serum bicarb 14, BUN 137, creatinine 8.82, glucose 578. Lactic 1.5. Magnesium 2.7. LFTs mildly elevated. Troponin 0.043. NT proBNP 4510. EKG: normal sinus rhythm, rate 88 bpm, incomplete RBB pattern, without obvious acute ischemic changes. Urine drug screen unremarkable. Serum ETOH < 10. Currently evaluating this patient in the intensive care unit. CPK was 7555 on arrival. Did receive 1.5 L normal saline bolus in in ED and started on normal saline at 130 ml/hr. Subsequently started on sodium bicarbonate infusion 3 A in D5W at 100 mL/h. urine output is in the order of 30 to 50 cc/h. Nephrology is managing. Repeat potassium is down to 4.7. On arrival blood glucose 578, serum bicarb 12, anion gap 27, acetone positive. Patient has also been started on insulin infusion Per protocol. He did develop some respiratory distress, breathing in the high 40s. I did ask for the pateint to be placed on BiPAP with settings 10/5 and FiO2 to be titrated kushal ropriately. Chest x-ray showing cardiomegaly. There is a left midlung linear infiltrates concerning for atelectasis or early pneumonia. Patient does have bruising to his left lateral chest. It is painful to palpation without crepitus or subcutaneous emphysema. Patient was empirically started on antibiotics in the ED.Current vitals: 97.6 F, blood pressure 115/85 mmHg, heart rate 78 bpm, tachypneic breathing in the high 40s, SpO2 is 100% on BiPAP with settings 10/5 FiO2 100%. Prognosis is guarded. 09/06/24 - Patient seen at bedside this morning, remaining in the ICU, day 2 of hospitalization, admitted on 09/05/24 and in the ICU since that time. He was placed to mechanical ventilation with intubation yesterday (09/05/24). He is on assist-control with a rate of 20, volume 450, FiO2 40%, PEEP of 5. ABG this morning showed pO2 72, pCO2 34, pH 7.46, indicating respiratory alkalosis with relative hypoxemia. Initial improvement in his WBCs down to 13.6 (from 14.8) this morning, his hemoglobin decreased to 11.2. His BUN is 138, creatinine 7.61. Increase in AST, 3-4, and ALT, up to 113. Phosphorus 5.0, remaining 9, calcium 6.6, remaining well. Creatinine Kinase remains elevated, showing improvements, to 6149. His procalcitonin returned at > 100. His blood cultures were positive for Enterobacter cloacae without resistance noted, patient placed on cefepime - discontinued Rocephin and Zithromax. Patient remained Levophed at 0.09 mcg/kg/min (7.26 mcg/min) and propofol 40 mcg/kg/min. Blood pressure this morning 113/52. He will be started on vital HP 10 cc/h, with a goal being 37 cc/h. 09/07/24 - Patient seen at bedside today, remaining in the ICU, day 3 of hospitalization. Admitted on 09/05/24 and in the ICU since that time. He has been intubated on mechanical ventilation since 09/05/24. He remains on assist- control with a rate of 20, volume 450, FiO2 50% and a PEEP of 8. ABG this morning showed pO2 59, pCO2 34, pH 7.46 which indicated respiratory alkalosis with some metabolic alkalosis - this was done while the patient was on an FiO2 of 40%. At that time, patient's FiO2 was up to 50% and his PEEP was increased to 8, since that time he has been saturating well. This morning his WBCs are 9.9, hemoglobin 10.1, platelet count 76, sodium 134, BUN 88, creatinine 4.68, calcium 6.4 and ionized calcium 3.7. Most recent creatinine kinase 2760. Because of the patient's relative hypocalcemia he received 1 g of calcium gluconate. The CVP has been slightly elevated since its insertion, at the time of insertion read ~9, however when seen the patient it was reading 6 indicated the patient is likely euvolemic. Patient remains on Levophed 0.01 mcg/kg/min (8 mcg/min), and on propofol 40 mcg/kg/min and vital HP at 30 cc/h (goal of 37 cc/h). He remains on cefepime and lactated ringer 100 cc/h. His urine was positive, preliminarily, for gram-negative bacilli. Preliminary results of blood culture showed Enterobacter cloacae and Serratia marcescens. 09/08/24 - Patient seen at bedside today, remaining in the ICU, day 4 of hospitalization. Admitted on 09/05/24 and in the ICU since that time. He has been intubated and mechanically ventilated since 09/05/24. He remains on assist-control with a rate of 20, volume 450, FiO2 50% and PEEP of 8. ABG done this morning showed pO2 60, pCO2 32, pH 7.45 indicating a respiratory alkalosis with some evidence of metabolic alkalosis. Patient uneventful overnight. WBCs 10.2, hemoglobin 9.4, sodium 133, BUN 63, creatinine 3.91, calcium 6.7. Patient CVP has been elevated, most recently at 12, indicating some possible hypervolemia. Patient allan on propofol 30 mcg/kg/min, Levophed 0.23 mcg/kg/min (~19 mcg/min), and cefepime. Patient's hemodialysis yesterday, 500 cc was removed. Per the hemodialysis nurse, patient's blood pressure dropped at the start of treatment, leading to pressors being increased at that time. Urine culture now final, positive for Enterobacter cloacae. Blood culture remains preliminary at this time for Enterobacter cloacae and Serratia marcescens. The patient is seen today September 09, 2024 in follow-up in the intensive care unit. He remains intubated on the mechanical ventilator and assist-control mode at a rate of 20, tidal volume 450, FiO2 50% and a PEEP of 8. Morning blood gases revealed a PaO2 of 86, pCO2 33 and a pH of 7.45. He is currently on norepinephrine at 27 mcg/min. Vasopressin at 0.03 units/min. Propofol at 30 mcg/kg/min. Lactated Ringer's at 10 mL/h. Receiving vital HP at 37 mL/h which is goal. He remains on cefepime for Enterobacter Cloacae in the urine. Enterobacter Cloacae and Serratia marcescens in the blood. Have a Tmax last night of 103.4. Currently 99.4. White count 13.5. Hemoglobin 9.6. Platelets 119. Sodium 133. Potassium 3.9. Bicarb 21. BUN 59. Creatinine 3.35. Glucose 245. He is continued on DuoNeb and elations. Heparin for DVT prophylaxis. Remains on Levemir and Lovenox sliding scale. He is currently in a +1.8 L balance. Chest x-ray shows persistent mild to moderate central vascular congestion bilaterally. He has been receiving hemodialysis. On 09/10/2024, the patient is being seen for a follow-up. Remains intubated on the mechanical ventilator. This morning, the patient is on propofol running at 30 mcg/kg/min. He is calm and comfortable and synchronous on mechanical ventilator. He is on assist-control mode of mechanical ventilation at rate of 20, tidal volume of 450, FiO2 of 50% with a PEEP of 5. His chest x-ray from today showing pulmonary vascular congestion and possibly some small bilateral pleural effusion. ET tube is around 4 cm above the nicol. No airspace disease or any consolidations noted. The pH is at 7.39 with a pCO2 of 34 and pO2 of 62. The patient is currently on pressors and is on norepinephrine running at 0.13 mcg/kg/min and he is also on vasopressin physiologic dose regarding his underlying gram-negative sepsis. Antibiotic coverage with IV cefepime for now. Afebrile, urine output is in the order of 5 cc an hour as the patient has developed an acute on top of chronic kidney injury and the fluid balance over the past 24 hours is +2.0 L. The patient is undergoing hemodialysis for now. Hemodialysis catheter is in the right femoral vein. His last hemodialysis session was on 09/09/2024 and another session of hemodialysis is to be done today. The patient blood work from today shows a WBC count of 11.3 with a hemoglobin of 9.7 and a platelet count of 116. Sodium is at 131, bicarb is at 18, potassium is at 4.4, BUN is 81 with a creatinine of 3.8. His liver function tests have improved including a drop in the AST and ALT. Alkaline phosphatase is also down to 218. Albumin is at 1.8 with a total protein of 4.4. As stated earlier, the cultures were positive for Enterobacter in his urine and blood. The blood also showed Serratia marcescens. His echocardiogram done during this current admission shows impaired LV function with an ejection fraction of 30% and there is global decrease in the contractility probably due to his underlying sepsis. He is receiving enteral feeding for nutritional support and is currently on THP vital HP vital HP at a rate of 37 cc an hour. IVF are KVO. On 09/11/2024, the patient is being seen in follow-up in the intensive care unit. The patient remains intubated on the mechanical ventilator. This morning, the patient is on propofol running at 50 mcg/kg/min. Earlier this morning, a blood gas was done as the patient was on a assist-control mode at a rate of 20 with a tidal volume of 450 and FiO2 of 50% with a PEEP of 8. The patient was found to be hypoxic with a pH of 7.41 with a pCO2 of 34 and pO2 54. The PEEP accordingly was brought up to 12. Current pulse ox is around 92 to 93%. The patient is still having episodes of fever. Remains septic and the patient remains on pressors and the patient is currently on norepinephrine running with 0.13 mcg/kg/min and vasopressin at 0.03 units. The patient is on IV cefepime. A CAT scan of the abdomen and pelvis was done yesterday and the patient was found to have consolidation in lung bases bilaterally consistent with pneumonia. Based on that, I recommended broadening his antibiotic coverage. Noted the patient was also supposed to undergo hemodialysis yesterday. He did have a problem with his hemodialysis catheter and the dialys is was not successful. Based on that, the catheter was exchanged and the patient was given another dialysis catheter in his left femoral vein today. Hemodialysis to follow today. The patient remains on vital high-protein for enteral feeding and titrate support at rate of 48 cc an hour. Meanwhile, he is white cell count of 12.6 with a hemoglobin 8.9 and platelet count of 155. BUN is 92 with a creatinine of 4.5 and a sodium levels at 1 of 32 and a potassium level is at 4.4. Serum bicarb is 18. Calcium level is at 7.1. LFTs are within normal limits. Sputum samples were sent for culture. Antibiotic modification was done and the patient was taken off the cefepime and the patient was started on a combination of IV Invanz and Vanco mycin. The patient remains on amiodarone 200 mg p.o. twice a day. The patient is on DuoNeb nebulized treatments [id number]. He is receiving Levemir insulin 20 units twice daily and NovoLog sliding scale coverage. On 09/12/2024, the patient remains intubated on mechanical ventilator. No significant change in his condition since yesterday. Noted the patient was given a session of hemodialysis yesterday and is undergoing another session of hemodialysis this morning. The patient remains sedated on propofol. He remains on 50 mcg/kg/min and the patient will be given a sedation holiday to assess his underlying mental status. He remains on the mechanical ventilator assist- control mode with rate of 20, tidal volume of 450, FiO2 55% with a PEEP of 12. Blood gas showed a pH of 7.47 with a pCO2 of 34 and a pO2 of 81. He is still having episodes of fever with a temperature of 101.6. His antibiotics is modified and the patient is currently on a combination of IV Invanz and vancomycin. Pressor requirements have improved since yesterday and the patient is currently on norepinephrine running at 0.04 mcg/kg/min and the patient is on a vasopressin physiologic dose. IV fluids are KVO. He is on vital high-protein at rate of 35 cc an hour. WBC count is 11 with a hemoglobin of 8.4 and a platelet count of 164. Sodium is at 128, BUN is 63 with a creatinine of 3.58. Potassium levels of 4.2. Sputum samples were obtained yesterday and results are still pending for now. Meanwhile, the patient will be kept on the same antibiotic coverage. Remains on Levemir insulin and the patient is on 20 units twice daily and NovoLog sliding scale coverage. On 09/13/2024, the patient's condition is essentially unchanged. The patient remains sedated and the patient remains on propofol which is running at 50 mcg/kg/min. Remains on the mechanical ventilator, this morning is on assist- control rate of 20, tidal volume of 450, FiO2 55% with a PEEP of 12. Most recent blood gas from this morning showed a pH of 7.47 with a pCO2 of 37 and pO2 of 97. The patient has no major respiratory secretions. The sputum sample that was collected earlier was negative. The chest x-ray findings are essentially unchanged and the patient continues to have stable bibasilar atelectatic changes/limited consolidation. In terms of antibiotic coverage, the patient is currently on a combination of Invanz and vancomycin. He is off norepinephrine. Vasopressin is running at physiologic dose of 0.03 units/min. He is having limited diarrhea. He is on vital high-protein at rate of 35 cc an hour. In terms of his blood work, the white cell count is at 9.9 with a hemoglobin 7.3 and a platelet count of 184. BUN is 52 with a creatinine of 2.8 and a sodium levels at 128 and a potassium level is at 4. Vancomycin trough level was 15. On 09/14/2024, the patient is being seen for a follow-up. The patient is off sedation since yesterday. He is not following commands. Not opening his eyes. Only grimaces to deep painful stimulation. Will continue monitoring his mental status. He remains on mechanical ventilator, assist-control mode rate of 20, tidal volume of 450, FiO2 40% with a PEEP of 10. The blood gas showed a pH of 7.49 with a pCO2 of 38 and a pO2 of 78. He remains on norepinephrine at a dose of 0.02 mcg/kg/min. Underwent hemodialysis yesterday with a total of 1.5 L of ultrafiltration. Continues to have episodes of fever with a Tmax of 102. Remains on a combination of IV Invanz and vancomycin. The patient is receiving enteral feeding for nutritional support. He remains on vital high-protein at rate of 30 cc an hour. LFTs are normal. Nevertheless, the bilirubin is quite elevated and there has been ongoing elevation in bilirubin level which is currently up to 6.8. AST 77, ALT is 39. CAT scan of the abdomen and pelvis sh owed gallstones. No evidence of biliary dilatation or intrahepatic ductal dilatation. The rest of the blood work from today shows a WC of 10.2, hemoglobin 7.9 and platelet count of 232. Sodium is at 128, BUN is 48 with a creatinine of 2.6. On 09/15/2024, the patient is still off sedation and the patient has been off sedation for the past 24 hours. Slightly more arousable on today's evaluation. He tries to move upon tactile stimulation. Does not respond to any verbal commands. He remains intubated on the mechanical ventilator. He remains on assist-control mode rate of 20, tidal volume of 450, FiO2 40% with a PEEP of 5. Blood gas showed a pH of 7.47 with a pCO2 of 40 and pO2 128. Chest x-ray findings are unchanged. He underwent hemodialysis yesterday another session of hemodialysis to be done today. Remains on norepinephrine running at 0.07 mcg/kg/min. The patient is also on vital high-protein at rate of 75 cc an hour. Bilirubin remains elevated. Ultrasound abdomen showed evidence of chronic liver disease possibly cirrhosis. There is also cholelithiasis without evidence of any cholecystitis. There is also moderate hepatomegaly. The bilirubin from today is at 7.1. LFTs remain elevated and the patient has a cholestatic picture. Sodium is at 130 with a potassium of 4 and a chloride of 95 and a serum bicarb is 27. White second 11.5 with hemoglobin 7.4. Ammonia levels are nonelevated. The patient is currently afebrile although he did have a low-grade temperature of 100.3 overnight. On 09/16/2024, neurologically, the patient remains unchanged. Has been off sedation for the past 3 days. He does react to repeated stimulation and tactile stimulation and painful stimulation. Nevertheless, he does not open his eyes spontaneously. Does not follow commands yet. He is afebrile. Remains on a mechanical ventilator assist-control mode with rate of 20, tidal volume of 400, FiO2 of 40% with a PEEP of 8. pH is 7.43 with a pCO2 of 41 and pO2 of [address]. [address] x-ray findings are stable. Remains on low-dose norepinephrine 0.04 mcg/kg/min. Hemodialysis was performed yesterday with a total of 1.5 L of ultrafiltration. He is on vital high-protein at rate of 55 cc an hour. The white cell count is at 10 with a hemoglobin 7.5 and platelet count of 342. S odium is 129, BUN is 51 with a creatinine of 2.3 and a potassium level is at 4.1. Remains on broad-spectrum antibiotics. Remains on vancomycin and IV Invanz. Remains quite jaundiced. Awaiting follow-up liver function test. Patient was seen today on , remains in the ICU, intubated and mec hanically ventilated. He is on assist-control rate of 20 tidal volume 450 FiO2 40% and PEEP of 6, ABG showed a pO2 of 124 pCO2 4 0 pH 7.41 hence FiO2 was cut down to 35% patient is undergoing hemodialysis this morning, and the plan is to remove 2 L of fluids. He is on norepinephrine at 0.02 mcg/kg/min, vital HP at 55/55 patient has poor urine output, remains on cefepime for his positive urine and blood cultures. Patient is opens eyes but does not follow any instructions. CODE STATUS has been changed to DNR globin today is 6.9, will hold on blood transfusion, may transfuse in the next 24 hours if we notice a further drop in hemoglobin. WBC count is 9.8 hemoglobin 6.9 electrolytes are normal BUN is 17 creatinine 3.53 chest x-ray is showing ongoing interstitial infiltrates/interstitial edema right more so than left. Objective - Vital Signs Vital signs: Vital Signs Temp 98.7 F 09/17/24 12:33 Pulse 80 09/17/24 12:33 Resp 21 09/17/24 12:33 BP 148/56 09/17/24 12:33 Pulse Ox 100 09/17/24 10:30 FiO2 35 09/17/24 11:31 Intake & Output 09/16/24 09/17/24 09/17/24 18:59 06:59 18:59 Intake Total 983.372 962.396 633.186 Output Total 20 20 4405 Balance 963.372 942.396 -3771.814 Weight 91.4 kg Intake: IV 176 192 64 LR 110 120 40 a line + CVP 66 72 24 Intake, IV Titration 112.372 20.396 29.186 Amount Norepinephrine 8 mg In 112.372 20.396 29.186 Sodium Chloride 0.9% 250 ml @ 0.03 MCG/KG/MIN 4. 737 mls/hr IV .Q24H [facility] Rx#:[id number] Tube Feeding 605 660 110 Hemodialysis 400 Other 90 90 30 Output: Urine 20 20 5 Hemodialysis 2400 Hemodialysis Net Amount 1999 Other: Voiding Method Indwelling Catheter Indwelling Catheter Indwelling Catheter # Bowel Movements 1 ABP, PAP, CO, CI - Last Documented Arterial Blood Pressure 119/52 - Exam GENERAL EXAM: Revealed 64-year-old white male intubated mechanically ventilated call opens eyes to verbal stimuli but does not follow any instructions HEAD: Normocephalic. EYES: Normal reaction of pupils, equal size. NOSE: Clear with pink turbinates. THROAT: Oral endotracheal and gastric tube secured in place. No erythema or exudates. NECK: No neck masses no JVD no stridor CHEST: No chest wall deformity. LUNGS: Minimal crackles and rhonchi at the bases CVS: Normal S1-S2, no S3 gallop, no murmur ABDOMEN: No hepatosplenomegaly, normal bowel sounds, no guarding or rigidity. SKIN: No rashes CENTRAL NERVOUS SYSTEM: Opens eyes, does not follow any instructions EXTREMITIES: There is 1+ peripheral edema. No clubbing, no cyanosis. Peripheral pulses are intact. - Labs CBC & Chem 7: 09/17/24 06:05 09/17/24 06:05 Labs: Abnormal Lab Results - Last 24 Hours (Table) 09/16/24 09/16/24 09/17/24 Range/Units 17:42 23:24 05:18 RBC (4.30-5.90) m/uL Hgb (13.0-17.5) gm/dL Hct (39.0-53.0) % RDW (11.5-15.5) % ABG pO2 124 H (83-108) mmHg ABG Total CO2 26 H (19-24) mmol/L ABG O2 Saturation 99.4 H (94-97) % Hemoglobin 7.2 L (13.0-17.5) gm/dL Sodium (137-145) mmol/L BUN (9-20) mg/dL Creatinine (0.66-1.25) mg/dL Glucose (74-99) mg/dL POC Glucose (mg/dL) 173 H 132 H (70-110) mg/dL Calcium (8.4-10.2) mg/dL 09/17/24 09/17/24 09/17/24 Range/Units 05:48 06:05 06:05 RBC 2.28 L (4.30-5.90) m/uL Hgb 6.9 L* (13.0-17.5) gm/dL Hct 21.2 L (39.0-53.0) % RDW 15.9 H (11.5-15.5) % ABG pO2 (83-108) mmHg ABG Total CO2 (19-24) mmol/L ABG O2 Saturation (94-97) % Hemoglobin (13.0-17.5) gm/dL Sodium 131 L (137-145) mmol/L BUN 70 H (9-20) mg/dL Creatinine 3.53 H (0.66-1.25) mg/dL Glucose 150 H (74-99) mg/dL POC Glucose (mg/dL) 49 L* (70-110) mg/dL Calcium 6.9 L (8.4-10.2) mg/dL 09/17/24 09/17/24 Range/Units 06:08 11:51 RBC (4.30-5.90) m/uL Hgb (13.0-17.5) gm/dL Hct (39.0-53.0) % RDW (11.5-15.5) % ABG pO2 (83-108) mmHg ABG Total CO2 (19-24) mmol/L ABG O2 Saturation (94-97) % Hemoglobin (13.0-17.5) gm/dL Sodium (137-145) mmol/L BUN (9-20) mg/dL Creatinine (0.66-1.25) mg/dL Glucose (74-99) mg/dL POC Glucose (mg/dL) 135 H 121 H (70-110) mg/dL Calcium (8.4-10.2) mg/dL Microbiology - Last 24 Hours (Table) 09/14/24 15:40 Blood Culture - Preliminary Blood 09/12/24 13:31 Urine Culture - Final Urine,Catheterized Gram Neg Bacilli Assessment and Plan Assessment: Impression Acute hypoxic respiratory failure, requiring mechanical ventilation and intubation on 09/05/24. Respiratory failure is multifactorial. The patient presented with significant metabolic derangements, acute on top of chronic renal failure, sepsis and decompensated heart failure. Remains intubated urine cultures are positive for Enterobacter cloacae, blood cultures are positive for Enterobacter cloacae and Serratia marcescens Acute rhabdomyolysis, resolved, and the CPK levels have been downtrending Acute on top of chronic kidney disease. T Systolic heart failure with an ejection fraction of 30% Sepsis, secondary to urinary tract infection. Altered mentation, secondary to acute metabolic encephalopathy Hypertension Mechanical fall, is on home 2 weeks prior Hyperkalemia, resolved History of hypertension Hyperlipidemia diabetes mellitus type 2 Right kidney mass, post cryoablation at [facility] (renal cell ca) Plan: Continue ventilatory support Continue hemodynamic support Continue antibiotics patient is receiving cefepime off Invanz and vancomycin Continue patient off sedation hoping his mental status will gradually improve Continue hemodialysis Patient is currently on low-dose norepinephrine Continue Levemir insulin 20 units twice daily along with a sliding scale cov erage Continue bronchodilators Heparin for DVT prophylaxis Continue nutritional support/enteral feeding Keep patient off sedation for now As his mental status improved will consult trials of weaning if possible Patient is critically ill Critical care time is over 30 minutes Time with Patient: Greater than 30
--- NOTE | 2024-09-17 14:47 | P.CNNES ---
History of Present Illness Consult date: 09/17/24 Requesting physician: Mounika Roberson Reason for Consult: possible seizure like-activity 09/16/2024 lasting for 1 minute History of Present Illness: This is a 64-year-old gentleman who presented emergency department on 09/04/2024 since the patient was found down for unknown period of time. History is obtained from medical record. Neurology is consulted for possible seizure-like activity on 09/16/2024 at 18:30 lasting for 1 minute. [facility] Medical record seems to the patient was found down for unknown period time and last seen normal 2 weeks prior to this by his sister. He was found to have acute rhabdomyolysis with acute renal failure with elevated blood sugar. The patient had a fall about 2 weeks ago prior to presentation. Patient does have underlying history of diabetes, chronic kidney disease, hypertension. Patient had initial CT of the head CT cervical spine and it was negative for any acute process. His glucose during beginning of presentation was 578. It seems that yesterday around 830 at nighttime patient had seizure-like activity noted by the nursing staff and he was postictal for 30 minutes. Per the nurse today it seems unusual that he was postictal since the patient has been unresponsive for the last 2 to 3 days without sedation. This hospital visit patient's getting dialysis. Patient has anemia during this hospital visit. During this hospital visit since 09/15/2024 patient's been having a hypoglycemic event as low as 51 on 09/15/2024 and today 49. Today patient was started on Keppra 500 mg every 12 hours by the ICU attending. Some of the other workup during this hospital visit consisted of: Patient was febrile but now it is improving and his high Tmax max over the last 24 hours 99.9. Ionized calcium is 3.7. His creatinine is trending down currently is 3.53. A level has normalized during this hospital visit was a high as 9300. Ammonia level is 18. His AST and ALT is trending down Urine culture is gram-negative bacilli, Enterobacter. Blood culture is positive for Serratia and Enterobacter Repeat CT of the head on 09/16/2024 is reported as no acute intracranial process. Bilateral mastoid cell and middle ear effusion correlate for otomastoiditis. I personally viewed the CT and I agree there is no acute or subacute stroke. Review of Systems Limited Past Medical History Past Medical History: Diabetes Mellitus, Hyperlipidemia History of Any Multi-Drug Resistant Organisms: None Reported Past Surgical History: Orthopedic Surgery, Tonsillectomy Additional Past Surgical History / Comment(s): tip of rt middle finger removed from work injury Past Anesthesia/Blood Transfusion Reactions: No Reported Reaction Past Psychological History: No Psychological Hx Reported Smoking Status: Never smoker Past Alcohol Use History: Unable to Obtain Past Drug Use History: Unable to Obtain Medications and Allergies Home Medications Medication Instructions Recorded Confirmed Type Lovastatin [Mevacor] 40 mg PO W/SUPPER 05/01/18 09/04/24 History Ferrous Sulfate [Iron (65 MG 325 mg PO DAILY 06/17/22 09/04/24 History Elemental)] Furosemide [Lasix] 40 mg PO BID@0900,1600 08/05/22 09/04/24 History hydrALAZINE HCL [Apresoline] 100 mg PO TID 08/05/22 09/04/24 History Isosorbide Mononitrate ER [Imdur] 30 mg PO DAILY 12/10/22 09/04/24 History allopurinoL [Zyloprim] 100 mg PO BID 12/10/22 09/04/24 History Famotidine [Pepcid] 20 mg PO HS PRN 05/06/23 09/04/24 History Glimepiride [Amaryl] 8 mg PO W/BRKFST 05/06/23 09/04/24 History carvediloL [Coreg] 25 mg PO BID-W/MEALS 05/06/23 09/04/24 History metFORMIN HCL ER [Glucophage XR] 500 mg PO DAILY 05/06/23 09/04/24 History Dulaglutide [Trulicity] 3 mg SQ Q7D 04/25/24 09/04/24 History amLODIPine [Norvasc] 5 mg PO DAILY 04/25/24 09/04/24 History lisinopriL [Zestril] 2.5 mg PO DAILY 04/25/24 09/04/24 History Dapagliflozin Propanediol [Farxiga] 5 mg PO DAILY 09/04/24 09/04/24 History Tamsulosin [Flomax] 0.4 mg PO HS 09/04/24 09/04/24 History calcitrioL [Rocaltrol] 0.25 mcg PO Q7D 09/04/24 09/04/24 History Allergies Allergy/AdvReac Type Severity Reaction Status Date / Time No Known Allergies Allergy Verified 09/04/24 19:37 Physical Examination - Vital Signs Vital Signs: Vital Signs Temp Pulse Pulse Resp BP BP Pulse Ox 09/17/24 13:15 84 22 99 09/17/24 13:00 75 20 100 09/17/24 12:45 75 15 100 09/17/24 12:33 98.7 F 80 21 148/56 09/17/24 12:30 78 31 H 100 09/17/24 12:15 82 26 H 100 09/17/24 12:00 98.6 F 99 16 100 09/17/24 11:45 80 15 100 09/17/24 11:43 70 09/17/24 11:35 72 09/17/24 11:31 09/17/24 11:30 84 23 98 09/17/24 11:15 74 18 100 09/17/24 11:00 78 6 L 100 09/17/24 10:45 69 20 100 09/17/24 10:30 71 20 100 09/17/24 10:15 68 20 100 09/17/24 10:00 69 22 100 09/17/24 09:45 79 20 99 09/17/24 09:30 68 20 100 09/17/24 09:15 68 21 100 09/17/24 09:00 70 21 100 09/17/24 08:50 09/17/24 08:45 75 20 99 09/17/24 08:30 86 20 97 09/17/24 08:15 73 20 98 09/17/24 08:07 70 09/17/24 08:00 97.4 F L 75 20 97 09/17/24 07:55 68 09/17/24 07:45 70 20 99 09/17/24 07:30 64 20 100 09/17/24 07:15 67 20 100 09/17/24 07:00 72 20 100 09/17/24 06:45 72 20 100 09/17/24 06:30 73 20 99 09/17/24 06:15 84 20 99 09/17/24 06:00 73 21 100 09/17/24 05:45 79 21 100 09/17/24 05:30 65 20 100 09/17/24 05:15 70 20 100 09/17/24 05:00 65 20 100 09/17/24 04:45 73 21 100 09/17/24 04:30 71 20 100 09/17/24 04:19 75 20 09/17/24 04:15 75 20 100 09/17/24 04:14 09/17/24 04:13 77 20 09/17/24 04:00 98.6 F 68 20 100 09/17/24 03:45 73 20 100 09/17/24 03:30 79 20 100 09/17/24 03:15 80 20 100 09/17/24 03:00 85 20 99 09/17/24 02:45 88 20 98 09/17/24 02:30 95 20 97 09/17/24 02:15 99 23 96 09/17/24 02:00 94 31 H 95 09/17/24 01:45 84 20 85 L 09/17/24 01:30 76 20 100 09/17/24 01:15 79 20 97 09/17/24 01:00 69 20 99 09/17/24 00:45 73 20 98 09/17/24 00:30 72 20 99 09/17/24 00:17 70 22 09/17/24 00:15 72 20 99 09/17/24 00:13 09/17/24 00:11 75 22 09/17/24 00:00 99.9 F H 80 20 98 09/16/24 23:45 73 20 99 09/16/24 23:30 87 20 98 09/16/24 23:15 79 20 98 09/16/24 23:05 77 25 H 98 09/16/24 23:00 76 27 H 99 09/16/24 22:45 75 25 H 98 09/16/24 22:30 73 27 H 98 09/16/24 22:15 77 20 98 09/16/24 22:00 81 30 H 138/61 98 09/16/24 21:45 80 24 98 09/16/24 21:30 83 22 98 09/16/24 21:15 79 20 98 09/16/24 21:00 80 24 98 09/16/24 20:45 86 22 98 09/16/24 20:30 86 25 H 98 09/16/24 20:15 89 24 98 09/16/24 20:04 91 29 H 09/16/24 20:00 99.9 F H 88 20 98 09/16/24 19:57 86 21 09/16/24 19:45 80 20 99 09/16/24 19:30 75 20 99 09/16/24 19:15 76 23 99 09/16/24 19:09 76 22 100 09/16/24 18:48 09/16/24 18:45 74 20 99 09/16/24 18:30 73 20 99 09/16/24 18:15 99 20 98 09/16/24 18:00 71 20 98 09/16/24 17:45 75 20 97 09/16/24 17:30 71 20 98 09/16/24 17:15 71 20 98 09/16/24 17:00 72 20 98 09/16/24 16:45 73 20 98 09/16/24 16:30 73 20 98 09/16/24 16:15 78 20 99 09/16/24 16:00 99.9 F H 74 20 99 09/16/24 15:45 74 15 99 09/16/24 15:37 76 09/16/24 15:30 75 4 L 99 09/16/24 15:22 09/16/24 15:19 77 09/16/24 15:15 75 15 99 09/16/24 15:00 75 7 L 98 09/16/24 14:45 74 27 H 99 09/16/24 14:30 76 28 H 98 FiO2 09/17/24 13:15 09/17/24 13:00 09/17/24 12:45 09/17/24 12:33 09/17/24 12:30 09/17/24 12:15 09/17/24 12:00 35 09/17/24 11:45 09/17/24 11:43 09/17/24 11:35 09/17/24 11:31 35 09/17/24 11:30 09/17/24 11:15 09/17/24 11:00 09/17/24 10:45 09/17/24 10:30 35 09/17/24 10:15 35 09/17/24 10:00 35 09/17/24 09:45 35 09/17/24 09:30 35 09/17/24 09:15 35 09/17/24 09:00 35 09/17/24 08:50 35 09/17/24 08:45 40 09/17/24 08:30 09/17/24 08:15 09/17/24 08:07 09/17/24 08:00 40 09/17/24 07:55 09/17/24 07:45 40 09/17/24 07:30 09/17/24 07:15 09/17/24 07:00 09/17/24 06:45 09/17/24 06:30 09/17/24 06:15 09/17/24 06:00 09/17/24 05:45 09/17/24 05:30 09/17/24 05:15 09/17/24 05:00 09/17/24 04:45 09/17/24 04:30 09/17/24 04:19 09/17/24 04:15 09/17/24 04:14 40 09/17/24 04:13 09/17/24 04:00 40 09/17/24 03:45 09/17/24 03:30 09/17/24 03:15 09/17/24 03:00 09/17/24 02:45 09/17/24 02:30 09/17/24 02:15 09/17/24 02:00 09/17/24 01:45 09/17/24 01:30 09/17/24 01:15 09/17/24 01:00 09/17/24 00:45 09/17/24 00:30 09/17/24 00:17 09/17/24 00:15 09/17/24 00:13 40 09/17/24 00:11 09/17/24 00:00 40 09/16/24 23:45 09/16/24 23:30 09/16/24 23:15 09/16/24 23:05 09/16/24 23:00 09/16/24 22:45 09/16/24 22:30 09/16/24 22:15 09/16/24 22:00 09/16/24 21:45 09/16/24 21:30 09/16/24 21:15 09/16/24 21:00 09/16/24 20:45 09/16/24 20:30 09/16/24 20:15 09/16/24 20:04 09/16/24 20:00 40 09/16/24 19:57 09/16/24 19:45 09/16/24 19:30 09/16/24 19:15 09/16/24 19:09 09/16/24 18:48 40 09/16/24 18:45 09/16/24 18:30 09/16/24 18:15 09/16/24 18:00 09/16/24 17:45 09/16/24 17:30 09/16/24 17:15 09/16/24 17:00 09/16/24 16:45 09/16/24 16:30 09/16/24 16:15 09/16/24 16:00 40 09/16/24 15:45 09/16/24 15:37 09/16/24 15:30 09/16/24 15:22 40 09/16/24 15:19 09/16/24 15:15 09/16/24 15:00 09/16/24 14:45 09/16/24 14:30 Intake and Output 09/16/24 09/17/24 09/17/24 22:59 06:59 14:59 Intake Total 667.870 635.106 958.423 Output Total 25 15 4405 Balance 642.870 620.106 -3446.577 Intake: IV 128 128 128 LR 80 80 80 a line + CVP 48 48 48 Intake, IV Titration 39.870 7.106 40.423 Amount Norepinephrine 8 mg In 39.870 7.106 40.423 Sodium Chloride 0.9% 250 ml @ 0.03 MCG/KG/MIN 4. 737 mls/hr IV .Q24H [facility] Rx#:[id number] Tube Feeding 440 440 330 Hemodialysis 400 Other 60 60 60 Output: Urine 25 15 5 Hemodialysis 2400 Hemodialysis Net Amount 1999 Other: Voiding Method Indwelling Catheter Indwelling Catheter Indwelling Catheter # Bowel Movements 1 Weight 91.4 kg ABP, PAP, CO, CI - Last 8 Hours Arterial Blood Pressure 142/51 Arterial Blood Pressure 107/44 Arterial Blood Pressure 107/44 Arterial Blood Pressure 135/51 Arterial Blood Pressure 142/53 Arterial Blood Pressure 141/58 Arterial Blood Pressure 130/55 Arterial Blood Pressure 107/46 Arterial Blood Pressure 115/50 Arterial Blood Pressure 105/49 Arterial Blood Pressure 111/49 Arterial Blood Pressure 119/52 Arterial Blood Pressure 113/51 Arterial Blood Pressure 117/51 Arterial Blood Pressure 127/55 Arterial Blood Pressure 123/54 Arterial Blood Pressure 107/50 Arterial Blood Pressure 105/49 Arterial Blood Pressure 148/59 Arterial Blood Pressure 121/54 Arterial Blood Pressure 92/44 Arterial Blood Pressure 115/51 Arterial Blood Pressure 133/52 Arterial Blood Pressure 139/52 Arterial Blood Pressure 147/56 Arterial Blood Pressure 141/55 Arterial Blood Pressure 133/54 Arterial Blood Pressure 110/46 General: Lying in bed and does not appear in acute distress. Lung: Intubated on a ventilator. Neuro: Limited. Patient is severely drowsy but is briefly awakeable to voice. His eyes briefly to voice. He tracks his eyes looking to the right and left and he did that with commands. Moved his head [id number] spontaneously. Round equal about 3 mm reactive to light No facial weakness. Motor: The strength is very limited and patient had no movement of the upper or lower extremity. Increased tone throughout. Reflexes is 1 positive. Results - Laboratory Findings CBC and BMP: 09/17/24 06:05 09/17/24 06:05 Abnormal Lab Findings: Abnormal Labs 09/04/24 09/04/24 09/04/24 16:56 17:04 17:04 WBC 17.3 H RBC Hgb Hct RDW Plt Count Neutrophils # 16.0 H Neutrophils # (Manual) Lymphocytes # 0.5 L Haptoglobin ABG pH ABG pCO2 ABG pO2 ABG HCO3 ABG Total CO2 ABG O2 Saturation VBG pH VBG HCO3 Hemoglobin Sodium 136 L Potassium 5.7 H Chloride 95 L Carbon Dioxide 14 L BUN 137 H* Creatinine 8.82 H* Glucose 578 H* POC Glucose (mg/dL) 557 H* Plasma Lactic Acid Portillo Calcium 8.2 L Ionized Calcium Antony Phosphorus 10.6 H* Magnesium 2.7 H Total Bilirubin AST 150 H ALT 71 H Alkaline Phosphatase Creatine Kinase 7555 H* Troponin I Total Protein Albumin Procalcitonin Urine RBC Urine WBC Urine WBC Clumps Urine Bacteria 09/04/24 09/04/24 09/04/24 17:04 17:04 18:20 WBC RBC Hgb Hct RDW Plt Count Neutrophils # Neutrophils # (Manual) Lymphocytes # Haptoglobin ABG pH ABG pCO2 ABG pO2 ABG HCO3 ABG Total CO2 ABG O2 Saturation VBG pH 7.30 L VBG HCO3 18 L Hemoglobin Sodium Potassium Chloride Carbon Dioxide BUN Creatinine Glucose POC Glucose (mg/dL) Plasma Lactic Acid Portillo 2.6 H* Calcium Ionized Calcium Antony Phosphorus Magnesium Total Bilirubin AST ALT Alkaline Phosphatase Creatine Kinase Troponin I 0.043 H* Total Protein Albumin Procalcitonin Urine RBC Urine WBC Urine WBC Clumps Urine Bacteria 09/04/24 09/04/24 09/04/24 18:24 21:00 22:11 WBC RBC Hgb Hct RDW Plt Count Neutrophils # Neutrophils # (Manual) Lymphocytes # Haptoglobin ABG pH ABG pCO2 ABG pO2 ABG HCO3 ABG Total CO2 ABG O2 Saturation VBG pH VBG HCO3 Hemoglobin Sodium Potassium Chloride Carbon Dioxide BUN Creatinine Glucose POC Glucose (mg/dL) 538 H* 549 H* Plasma Lactic Acid Portillo Calcium Ionized Calcium Antony Phosphorus Magnesium Total Bilirubin AST ALT Alkaline Phosphatase Creatine Kinase Troponin I Total Protein Albumin Procalcitonin Urine RBC >182 H Urine WBC >182 H Urine WBC Clumps Many H Urine Bacteria Many H 09/04/24 09/04/24 09/05/24 23:17 23:22 00:18 WBC RBC Hgb Hct RDW Plt Count Neutrophils # Neutrophils # (Manual) Lymphocytes # Haptoglobin ABG pH ABG pCO2 ABG pO2 ABG HCO3 ABG Total CO2 ABG O2 Saturation VBG pH VBG HCO3 Hemoglobin Sodium Potassium Chloride Carbon Dioxide 16 L BUN 141 H* Creatinine 7.78 H* Glucose 540 H* POC Glucose (mg/dL) 557 H* 517 H* Plasma Lactic Acid Portillo Calcium 7.0 L Ionized Calcium Antony Phosphorus Magnesium Total Bilirubin AST ALT Alkaline Phosphatase Creatine Kinase Troponin I Total Protein Albumin Procalcitonin Urine RBC Urine WBC Urine WBC Clumps Urine Bacteria 09/05/24 09/05/24 09/05/24 01:21 02:11 03:06 WBC RBC Hgb Hct RDW Plt Count Neutrophils # Neutrophils # (Manual) Lymphocytes # Haptoglobin ABG pH ABG pCO2 ABG pO2 ABG HCO3 ABG Total CO2 ABG O2 Saturation VBG pH VBG HCO3 Hemoglobin Sodium Potassium Chloride Carbon Dioxide BUN Creatinine Glucose POC Glucose (mg/dL) 477 H 488 H 367 H Plasma Lactic Acid Port[place] Calcium Ionized Calcium Antony Phosphorus Magnesium Total Bilirubin AST ALT Alkaline Phosphatase Creatine Kinase Troponin I Total Protein Albumin Procalcitonin Urine RBC Urine WBC Urine WBC Clumps Urine Bacteria 09/05/24 09/05/24 09/05/24 04:05 04:54 05:30 WBC RBC Hgb Hct RDW Plt Count Neutrophils # Neutrophils # (Manual) Lymphocytes # Haptoglobin ABG pH ABG pCO2 ABG pO2 ABG HCO3 ABG Total CO2 ABG O2 Saturation VBG pH VBG HCO3 Hemoglobin Sodium Potassium Chloride Carbon Dioxide BUN 147 H* Creatinine 7.44 H* Glucose 190 H POC Glucose (mg/dL) 276 H 254 H Plasma Lactic Acid Portillo Calcium 7.3 L Ionized Calcium Antony Phosphorus Magnesium Total Bilirubin AST ALT Alkaline Phosphatase Creatine Kinase 9320 H* Troponin I Total Protein Albumin Procalcitonin Urine RBC Urine WBC Urine WBC Clumps Urine Bacteria 09/05/24 09/05/24 09/05/24 05:30 05:30 06:15 WBC 14.8 H RBC 4.20 L Hgb 12.3 L Hct 37.8 L RDW Plt Count Neutrophils # 14.1 H Neutrophils # (Manual) Lymphocytes # 0.2 L Haptoglobin ABG pH ABG pCO2 ABG pO2 ABG HCO3 ABG Total CO2 ABG O2 Saturation VBG pH VBG HCO3 Hemoglobin Sodium Potassium Chloride Carbon Dioxide BUN Creatinine Glucose POC Glucose (mg/dL) 222 H Plasma Lactic Acid Portillo Calcium Ionized Calcium Antony Phosphorus Magnesium Total Bilirubin AST ALT Alkaline Phosphatase Creatine Kinase Troponin I Total Protein Albumin Procalcitonin >100.00 H Urine RBC Urine WBC Urine WBC Clumps Urine Bacteria 09/05/24 09/05/24 09/05/24 06:20 07:06 09:47 WBC RBC Hgb Hct RDW Plt Count Neutrophils # Neutrophils # (Manual) Lymphocytes # Haptoglobin ABG pH 7.56 H* ABG pCO2 28 L ABG pO2 178 H ABG HCO3 ABG Total CO2 25 H ABG O2 Saturation 100.0 H VBG pH VBG HCO3 Hemoglobin 12.2 L Sodium Potassium Chloride Carbon Dioxide BUN Creatinine Glucose POC Glucose (mg/dL) 140 H 122 H Plasma Lactic Acid Portillo Calcium Ionized Calcium Antony Phosphorus Magnesium Total Bilirubin AST ALT Alkaline Phosphatase Creatine Kinase Troponin I Total Protein Albumin Procalcitonin Urine RBC Urine WBC Urine WBC Clumps Urine Bacteria 09/05/24 09/05/24 09/05/24 09:52 09:54 11:27 WBC RBC Hgb Hct RDW Plt Count Neutrophils # Neutrophils # (Manual) Lymphocytes # Haptoglobin ABG pH 7.49 H ABG pCO2 ABG pO2 321 H ABG HCO3 27 H ABG Total CO2 28 H ABG O2 Saturation >100.0 H VBG pH VBG HCO3 Hemoglobin 10.8 L Sodium Potassium Chloride Carbon Dioxide BUN Creatinine Glucose POC Glucose (mg/dL) 140 H Plasma Lactic Acid Portillo Calcium Ionized Calcium Antony Phosphorus Magnesium Total Bilirubin AST ALT Alkaline Phosphatase Creatine Kinase Troponin I 0.050 H* Total Protein Albumin Procalcitonin Urine RBC Urine WBC Urine WBC Clumps Urine Bacteria 09/05/24 09/05/24 09/05/24 11:54 12:59 13:58 WBC RBC Hgb Hct RDW Plt Count Neutrophils # Neutrophils # (Manual) Lymphocytes # Haptoglobin ABG pH ABG pCO2 ABG pO2 ABG HCO3 ABG Total CO2 ABG O2 Saturation VBG pH VBG HCO3 Hemoglobin Sodium Potassium Chloride Carbon Dioxide BUN Creatinine Glucose POC Glucose (mg/dL) 256 H 232 H 189 H Plasma Lactic Acid Portillo Calcium Ionized Calcium Antony Phosphorus Magnesium Total Bilirubin AST ALT Alkaline Phosphatase Creatine Kinase Troponin I Total Protein Albumin Procalcitonin Urine RBC Urine WBC Urine WBC Clumps Urine Bacteria 09/05/24 09/05/24 09/05/24 14:24 14:24 15:57 WBC RBC Hgb Hct RDW Plt Count Neutrophils # Neutrophils # (Manual) Lymphocytes # Haptoglobin ABG pH ABG pCO2 ABG pO2 ABG HCO3 ABG Total CO2 ABG O2 Saturation VBG pH VBG HCO3 Hemoglobin Sodium Potassium 3.1 L Chloride Carbon Dioxide BUN 139 H* Creatinine 7.75 H* Glucose 163 H POC Glucose (mg/dL) 159 H Plasma Lactic Acid Portillo Calcium 6.7 L Ionized Calcium Antony Phosphorus Magnesium Total Bilirubin AST ALT Alkaline Phosphatase Creatine Kinase Troponin I 0.044 H* Total Protein Albumin Procalcitonin Urine RBC Urine WBC Urine WBC Clumps Urine Bacteria 09/05/24 09/05/24 09/05/24 18:04 18:22 19:05 WBC RBC Hgb Hct RDW Plt Count Neutrophils # Neutrophils # (Manual) Lymphocytes # Haptoglobin ABG pH ABG pCO2 ABG pO2 ABG HCO3 ABG Total CO2 ABG O2 Saturation VBG pH VBG HCO3 Hemoglobin Sodium Potassium Chloride Carbon Dioxide BUN Creatinine Glucose POC Glucose (mg/dL) 45 L* 124 H 119 H Plasma Lactic Acid Portillo Calcium Ionized Calcium Antony Phosphorus Magnesium Total Bilirubin AST ALT Alkaline Phosphatase Creatine Kinase Troponin I Total Protein Albumin Procalcitonin Urine RBC Urine WBC Urine WBC Clumps Urine Bacteria 09/05/24 09/05/24 09/05/24 20:12 21:04 22:17 WBC RBC Hgb Hct RDW Plt Count Neutrophils # Neutrophils # (Manual) Lymphocytes # Haptoglobin ABG pH ABG pCO2 ABG pO2 ABG HCO3 ABG Total CO2 ABG O2 Saturation VBG pH VBG HCO3 Hemoglobin Sodium Potassium Chloride Carbon Dioxide BUN Creatinine Glucose POC Glucose (mg/dL) 144 H 163 H 175 H Plasma Lactic Acid Portillo Calcium Ionized Calcium Antony Phosphorus Magnesium Total Bilirubin AST ALT Alkaline Phosphatase Creatine Kinase Troponin I Total Protein Albumin Procalcitonin Urine RBC Urine WBC Urine WBC Clumps Urine Bacteria 09/05/24 09/06/24 09/06/24 23:17 00:04 01:07 WBC RBC Hgb Hct RDW Plt Count Neutrophils # Neutrophils # (Manual) Lymphocytes # Haptoglobin ABG pH ABG pCO2 ABG pO2 ABG HCO3 ABG Total CO2 ABG O2 Saturation VBG pH VBG HCO3 Hemoglobin Sodium Potassium Chloride Carbon Dioxide BUN Creatinine Glucose POC Glucose (mg/dL) 191 H 197 H 178 H Plasma Lactic Acid Portillo Calcium Ionized Calcium Antony Phosphorus Magnesium Total Bilirubin AST ALT Alkaline Phosphatase Creatine Kinase Troponin I Total Protein Albumin Procalcitonin Urine RBC Urine WBC Urine WBC Clumps Urine Bacteria 09/06/24 09/06/24 09/06/24 02:09 03:07 04:15 WBC RBC Hgb Hct RDW Plt Count Neutrophils # Neutrophils # (Manual) Lymphocytes # Haptoglobin ABG pH ABG pCO2 ABG pO2 ABG HCO3 ABG Total CO2 ABG O2 Saturation VBG pH VBG HCO3 Hemoglobin Sodium Potassium Chloride Carbon Dioxide BUN Creatinine Glucose POC Glucose (mg/dL) 169 H 139 H 124 H Plasma Lactic Acid Portillo Calcium Ionized Calcium Antony Phosphorus Magnesium Total Bilirubin AST ALT Alkaline Phosphatase Creatine Kinase Troponin I Total Protein Albumin Procalcitonin Urine RBC Urine WBC Urine WBC Clumps Urine Bacteria 09/06/24 09/06/24 09/06/24 04:47 04:47 05:30 WBC 13.6 H RBC 3.75 L Hgb 11.2 L Hct 33.1 L RDW Plt Count 119 L Neutrophils # 12.4 H Neutrophils # (Manual) Lymphocytes # 0.4 L Haptoglobin ABG pH 7.46 H ABG pCO2 34 L ABG pO2 72 L ABG HCO3 ABG Total CO2 25 H ABG O2 Saturation VBG pH VBG HCO3 Hemoglobin 11.3 L Sodium Potassium Chloride Carbon Dioxide BUN 138 H* Creatinine 7.61 H* Glucose 137 H POC Glucose (mg/dL) Plasma Lactic Acid Portillo Calcium 6.6 L Ionized Calcium Antony Phosphorus 5.0 H Magnesium Total Bilirubin 2.2 H AST 304 H ALT 113 H Alkaline Phosphatase 135 H Creatine Kinase 6149 H* Troponin I Total Protein 4.8 L Albumin 2.3 L Procalcitonin Urine RBC Urine WBC Urine WBC Clumps Urine Bacteria 09/06/24 09/06/24 09/06/24 07:57 09:09 11:28 WBC RBC Hgb Hct RDW Plt Count Neutrophils # Neutrophils # (Manual) Lymphocytes # Haptoglobin ABG pH ABG pCO2 ABG pO2 ABG HCO3 ABG Total CO2 ABG O2 Saturation VBG pH VBG HCO3 Hemoglobin Sodium Potassium Chloride Carbon Dioxide BUN Creatinine Glucose POC Glucose (mg/dL) 164 H 196 H 168 H Plasma Lactic Acid Portillo Calcium Ionized Calcium Antony Phosphorus Magnesium Total Bilirubin AST ALT Alkaline Phosphatase Creatine Kinase Troponin I Total Protein Albumin Procalcitonin Urine RBC Urine WBC Urine WBC Clumps Urine Bacteria 09/06/24 09/06/24 09/06/24 16:13 17:50 23:56 WBC RBC Hgb Hct RDW Plt Count Neutrophils # Neutrophils # (Manual) Lymphocytes # Haptoglobin ABG pH ABG pCO2 ABG pO2 ABG HCO3 ABG Total CO2 ABG O2 Saturation VBG pH VBG HCO3 Hemoglobin Sodium Potassium Chloride Carbon Dioxide BUN Creatinine Glucose POC Glucose (mg/dL) 143 H 166 H 273 H Plasma Lactic Acid Portillo Calcium Ionized Calcium Antony Phosphorus Magnesium Total Bilirubin AST ALT Alkaline Phosphatase Creatine Kinase Troponin I Total Protein Albumin Procalcitonin Urine RBC Urine WBC Urine WBC Clumps Urine Bacteria 09/07/24 09/07/24 09/07/24 04:40 04:40 05:17 WBC RBC 3.29 L Hgb 10.1 L Hct 29.6 L RDW Plt Count 76 L Neutrophils # Neutrophils # (Manual) Lymphocytes # Haptoglobin ABG pH ABG pCO2 ABG pO2 ABG HCO3 ABG Total CO2 ABG O2 Saturation VBG pH VBG HCO3 Hemoglobin Sodium 134 L Potassium Chloride Carbon Dioxide BUN 88 H Creatinine 4.68 H Glucose 176 H POC Glucose (mg/dL) 237 H Plasma Lactic Acid Portillo Calcium 6.4 L* Ionized Calcium Antony Phosphorus Magnesium Total Bilirubin AST ALT Alkaline Phosphatase Creatine Kinase Troponin I Total Protein Albumin Procalcitonin Urine RBC Urine WBC Urine WBC Clumps Urine Bacteria 09/07/24 09/07/24 09/07/24 05:25 05:55 09:30 WBC RBC Hgb Hct RDW Plt Count Neutrophils # Neutrophils # (Manual) Lymphocytes # Haptoglobin ABG pH 7.46 H ABG pCO2 34 L ABG pO2 59 L* ABG HCO3 ABG Total CO2 26 H ABG O2 Saturation 91.4 L VBG pH VBG HCO3 Hemoglobin 9.9 L Sodium Potassium Chloride Carbon Dioxide BUN Creatinine Glucose POC Glucose (mg/dL) Plasma Lactic Acid Portillo Calcium Ionized Calcium Antony 3.7 L Phosphorus Magnesium Total Bilirubin AST ALT Alkaline Phosphatase Creatine Kinase 2760 H* Troponin I Total Protein Albumin Procalcitonin Urine RBC Urine WBC Urine WBC Clumps Urine Bacteria 09/07/24 09/07/24 09/08/24 11:35 17:38 00:14 WBC RBC Hgb Hct RDW Plt Count Neutrophils # Neutrophils # (Manual) Lymphocytes # Haptoglobin ABG pH ABG pCO2 ABG pO2 ABG HCO3 ABG Total CO2 ABG O2 Saturation VBG pH VBG HCO3 Hemoglobin Sodium Potassium Chloride Carbon Dioxide BUN Creatinine Glucose POC Glucose (mg/dL) 148 H 208 H 174 H Plasma Lactic Acid [place] Calcium Ionized Calcium Antony Phosphorus Magnesium Total Bilirubin AST ALT Alkaline Phosphatase Creatine Kinase Troponin I Total Protein Albumin Procalcitonin Urine RBC Urine WBC Urine WBC Clumps Urine Bacteria 09/08/24 09/08/24 09/08/24 05:00 05:00 05:00 WBC RBC 3.11 L Hgb 9.4 L Hct 28.1 L RDW Plt Count 87 L Neutrophils # Neutrophils # (Manual) Lymphocytes # Haptoglobin ABG pH ABG pCO2 32 L ABG pO2 60 L ABG HCO3 ABG Total CO2 ABG O2 Saturation 92.3 L VBG pH VBG HCO3 Hemoglobin 9.8 L Sodium 133 L Potassium Chloride Carbon Dioxide 20 L BUN 63 H Creatinine 3.91 H Glucose 274 H POC Glucose (mg/dL) Plasma Lactic Acid [place] Calcium 6.7 L Ionized Calcium Antony Phosphorus Magnesium Total Bilirubin 4.9 H AST 96 H ALT 52 H Alkaline Phosphatase 177 H Creatine Kinase Troponin I Total Protein 4.3 L Albumin 1.8 L Procalcitonin Urine RBC Urine WBC Urine WBC Clumps Urine Bacteria 09/08/24 09/08/24 09/08/24 05:52 09:57 11:52 WBC RBC Hgb Hct RDW Plt Count Neutrophils # Neutrophils # (Manual) Lymphocytes # Haptoglobin ABG pH ABG pCO2 ABG pO2 ABG HCO3 ABG Total CO2 ABG O2 Saturation VBG pH VBG HCO3 Hemoglobin Sodium Potassium Chloride Carbon Dioxide BUN Creatinine Glucose POC Glucose (mg/dL) 295 H 175 H 214 H Plasma Lactic Acid Portillo Calcium Ionized Calcium Antony Phosphorus Magnesium Total Bilirubin AST ALT Alkaline Phosphatase Creatine Kinase Troponin I Total Protein Albumin Procalcitonin Urine RBC Urine WBC Urine WBC Clumps Urine Bacteria 09/08/24 09/08/24 09/08/24 18:16 19:56 22:59 WBC RBC Hgb Hct RDW Plt Count Neutrophils # Neutrophils # (Manual) Lymphocytes # Haptoglobin ABG pH ABG pCO2 ABG pO2 ABG HCO3 ABG Total CO2 ABG O2 Saturation VBG pH VBG HCO3 Hemoglobin Sodium Potassium Chloride Carbon Dioxide BUN Creatinine Glucose POC Glucose (mg/dL) 200 H 249 H 300 H Plasma Lactic Acid Portillo Calcium Ionized Calcium Antony Phosphorus Magnesium Total Bilirubin AST ALT Alkaline Phosphatase Creatine Kinase Troponin I Total Protein Albumin Procalcitonin Urine RBC Urine WBC Urine WBC Clumps Urine Bacteria 09/09/24 09/09/24 09/09/24 05:09 05:15 05:15 WBC 13.5 H RBC 3.13 L Hgb 9.6 L Hct 28.5 L RDW Plt Count 119 L Neutrophils # Neutrophils # (Manual) Lymphocytes # Haptoglobin ABG pH ABG pCO2 33 L ABG pO2 ABG HCO3 ABG Total CO2 ABG O2 Saturation 98.0 H VBG pH VBG HCO3 Hemoglobin 9.9 L Sodium 133 L Potassium Chloride Carbon Dioxide 21 L BUN 59 H Creatinine 3.35 H Glucose 245 H POC Glucose (mg/dL) Plasma Lactic Acid Portillo Calcium 6.8 L Ionized Calcium Antony Phosphorus Magnesium Total Bilirubin 6.8 H AST 78 H ALT Alkaline Phosphatase 238 H Creatine Kinase Troponin I Total Protein 4.4 L Albumin 1.8 L Procalcitonin Urine RBC Urine WBC Urine WBC Clumps Urine Bacteria 09/09/24 09/09/24 09/09/24 06:04 11:17 16:41 WBC RBC Hgb Hct RDW Plt Count Neutrophils # Neutrophils # (Manual) Lymphocytes # Haptoglobin ABG pH ABG pCO2 ABG pO2 ABG HCO3 ABG Total CO2 ABG O2 Saturation VBG pH VBG HCO3 Hemoglobin Sodium Potassium Chloride Carbon Dioxide BUN Creatinine Glucose POC Glucose (mg/dL) 224 H 243 H 251 H Plasma Lactic Acid Portillo Calcium Ionized Calcium Antony Phosphorus Magnesium Total Bilirubin AST ALT Alkaline Phosphatase Creatine Kinase Troponin I Total Protein Albumin Procalcitonin Urine RBC Urine WBC Urine WBC Clumps Urine Bacteria 09/09/24 09/10/24 09/10/24 23:55 03:40 03:40 WBC 11.3 H RBC 3.18 L Hgb 9.7 L Hct 29.1 L RDW Plt Count 116 L Neutrophils # 10.0 H Neutrophils # (Manual) Lymphocytes # 0.5 L Haptoglobin ABG pH ABG pCO2 ABG pO2 ABG HCO3 ABG Total CO2 ABG O2 Saturation VBG pH VBG HCO3 Hemoglobin Sodium 131 L Potassium Chloride Carbon Dioxide 18 L BUN 81 H Creatinine 3.87 H Glucose 297 H POC Glucose (mg/dL) 316 H Plasma Lactic Acid Portillo Calcium 6.7 L Ionized Calcium Antony Phosphorus Magnesium Total Bilirubin 5.9 H AST ALT Alkaline Phosphatase 218 H Creatine Kinase Troponin I Total Protein 4.4 L Albumin 1.8 L Procalcitonin Urine RBC Urine WBC Urine WBC Clumps Urine Bacteria 09/10/24 09/10/24 09/10/24 03:40 05:24 05:35 WBC RBC Hgb Hct RDW Plt Count Neutrophils # Neutrophils # (Manual) Lymphocytes # Haptoglobin ABG pH ABG pCO2 34 L ABG pO2 62 L ABG HCO3 20 L ABG Total CO2 ABG O2 Saturation 92.0 L VBG pH VBG HCO3 Hemoglobin 9.3 L Sodium Potassium Chloride Carbon Dioxide BUN Creatinine Glucose POC Glucose (mg/dL) 284 H Plasma Lactic Acid Portillo Calcium Ionized Calcium Antony Phosphorus Magnesium Total Bilirubin AST ALT Alkaline Phosphatase Creatine Kinase 680 H Troponin I Total Protein Albumin Procalcitonin Urine RBC Urine WBC Urine WBC Clumps Urine Bacteria 09/10/24 09/10/24 09/10/24 12:33 17:53 17:59 WBC RBC Hgb Hct RDW Plt Count Neutrophils # Neutrophils # (Manual) Lymphocytes # Haptoglobin ABG pH ABG pCO2 ABG pO2 ABG HCO3 ABG Total CO2 ABG O2 Saturation VBG pH VBG HCO3 Hemoglobin Sodium Potassium Chloride Carbon Dioxide BUN Creatinine Glucose POC Glucose (mg/dL) 255 H 247 H 237 H Plasma Lactic Acid Portillo Calcium Ionized Calcium Antony Phosphorus Magnesium Total Bilirubin AST ALT Alkaline Phosphatase Creatine Kinase Troponin I Total Protein Albumin Procalcitonin Urine RBC Urine WBC Urine WBC Clumps Urine Bacteria 09/10/24 09/11/24 09/11/24 23:26 05:20 05:20 WBC 12.6 H RBC 2.91 L Hgb 8.9 L Hct 26.2 L RDW Plt Count Neutrophils # Neutrophils # (Manual) Lymphocytes # Haptoglobin ABG pH ABG pCO2 ABG pO2 ABG HCO3 ABG Total CO2 ABG O2 Saturation VBG pH VBG HCO3 Hemoglobin Sodium 132 L Potassium Chloride Carbon Dioxide 18 L BUN 92 H Creatinine 4.53 H Glucose 161 H POC Glucose (mg/dL) 209 H Plasma Lactic Acid Portillo Calcium 7.1 L Ionized Calcium Antony Phosphorus Magnesium Total Bilirubin 5.7 H AST ALT Alkaline Phosphatase 187 H Creatine Kinase Troponin I Total Protein 4.7 L Albumin 1.8 L Procalcitonin Urine RBC Urine WBC Urine WBC Clumps Urine Bacteria 09/11/24 09/11/24 09/11/24 05:22 05:31 11:16 WBC RBC Hgb Hct RDW Plt Count Neutrophils # Neutrophils # (Manual) Lymphocytes # Haptoglobin ABG pH ABG pCO2 34 L ABG pO2 54 L* ABG HCO3 ABG Total CO2 ABG O2 Saturation 88.1 L VBG pH VBG HCO3 Hemoglobin 8.7 L Sodium Potassium Chloride Carbon Dioxide BUN Creatinine Glucose POC Glucose (mg/dL) 173 H 196 H Plasma Lactic Acid Portillo Calcium Ionized Calcium Antony Phosphorus Magnesium Total Bilirubin AST ALT Alkaline Phosphatase Creatine Kinase Troponin I Total Protein Albumin Procalcitonin Urine RBC Urine WBC Urine WBC Clumps Urine Bacteria 09/11/24 09/11/24 09/12/24 18:11 22:57 05:19 WBC RBC Hgb Hct RDW Plt Count Neutrophils # Neutrophils # (Manual) Lymphocytes # Haptoglobin ABG pH 7.47 H ABG pCO2 34 L ABG pO2 81 L ABG HCO3 ABG Total CO2 26 H ABG O2 Saturation 97.1 H VBG pH VBG HCO3 Hemoglobin 8.0 L Sodium Potassium Chloride Carbon Dioxide BUN Creatinine Glucose POC Glucose (mg/dL) 138 H 214 H Plasma Lactic Acid Portillo Calcium Ionized Calcium Antony Phosphorus Magnesium Total Bilirubin AST ALT Alkaline Phosphatase Creatine Kinase Troponin I Total Protein Albumin Procalcitonin Urine RBC Urine WBC Urine WBC Clumps Urine Bacteria 09/12/24 09/12/24 09/12/24 05:26 06:00 06:00 WBC 11.0 H RBC 2.77 L Hgb 8.4 L Hct 24.7 L RDW Plt Count Neutrophils # 9.4 H Neutrophils # (Manual) Lymphocytes # 0.7 L Haptoglobin ABG pH ABG pCO2 ABG pO2 ABG HCO3 ABG Total CO2 ABG O2 Saturation VBG pH VBG HCO3 Hemoglobin Sodium 128 L Potassium Chloride 97 L Carbon Dioxide BUN 63 H Creatinine 3.58 H Glucose 227 H POC Glucose (mg/dL) 271 H Plasma Lactic Acid Portillo Calcium 7.1 L Ionized Calcium Antony Phosphorus Magnesium Total Bilirubin AST ALT Alkaline Phosphatase Creatine Kinase Troponin I Total Protein Albumin Procalcitonin Urine RBC Urine WBC Urine WBC Clumps Urine Bacteria 09/12/24 09/12/24 09/12/24 11:59 18:51 23:41 WBC RBC Hgb Hct RDW Plt Count Neutrophils # Neutrophils # (Manual) Lymphocytes # Haptoglobin ABG pH ABG pCO2 ABG pO2 ABG HCO3 ABG Total CO2 ABG O2 Saturation VBG pH VBG HCO3 Hemoglobin Sodium Potassium Chloride Carbon Dioxide BUN Creatinine Glucose POC Glucose (mg/dL) 177 H 150 H 154 H Plasma Lactic Acid Portillo Calcium Ionized Calcium Antony Phosphorus Magnesium Total Bilirubin AST ALT Alkaline Phosphatase Creatine Kinase Troponin I Total Protein Albumin Procalcitonin Urine RBC Urine WBC Urine WBC Clumps Urine Bacteria 09/13/24 09/13/24 09/13/24 05:27 05:27 05:29 WBC RBC 2.43 L Hgb 7.3 L Hct 21.5 L RDW 15.8 H Plt Count Neutrophils # 8.1 H Neutrophils # (Manual) Lymphocytes # 0.8 L Haptoglobin ABG pH ABG pCO2 ABG pO2 ABG HCO3 ABG Total CO2 ABG O2 Saturation VBG pH VBG HCO3 Hemoglobin Sodium 128 L Potassium Chloride Carbon Dioxide BUN 52 H Creatinine 2.83 H Glucose 141 H POC Glucose (mg/dL) 165 H Plasma Lactic Acid Portillo Calcium 7.4 L Ionized Calcium Antony Phosphorus Magnesium Total Bilirubin AST ALT Alkaline Phosphatase Creatine Kinase Troponin I Total Protein Albumin Procalcitonin Urine RBC Urine WBC Urine WBC Clumps Urine Bacteria 09/13/24 09/13/24 09/13/24 06:03 11:23 16:51 WBC RBC Hgb Hct RDW Plt Count Neutrophils # Neutrophils # (Manual) Lymphocytes # Haptoglobin ABG pH 7.47 H ABG pCO2 ABG pO2 ABG HCO3 27 H ABG Total CO2 28 H ABG O2 Saturation 98.0 H VBG pH VBG HCO3 Hemoglobin 7.2 L Sodium Potassium Chloride Carbon Dioxide BUN Creatinine Glucose POC Glucose (mg/dL) 118 H 134 H Plasma Lactic Acid Portillo Calcium Ionized Calcium Antony Phosphorus Magnesium Total Bilirubin AST ALT Alkaline Phosphatase Creatine Kinase Troponin I Total Protein Albumin Procalcitonin Urine RBC Urine WBC Urine WBC Clumps Urine Bacteria 09/13/24 09/13/24 09/14/24 18:23 23:32 05:30 WBC RBC 2.45 L Hgb 7.9 L Hct 21.9 L RDW Plt Count Neutrophils # 8.2 H Neutrophils # (Manual) Lymphocytes # Haptoglobin ABG pH ABG pCO2 ABG pO2 ABG HCO3 ABG Total CO2 ABG O2 Saturation VBG pH VBG HCO3 Hemoglobin Sodium Potassium Chloride Carbon Dioxide BUN Creatinine Glucose POC Glucose (mg/dL) 133 H 113 H Plasma Lactic Acid Portillo Calcium Ionized Calcium Antony Phosphorus Magnesium Total Bilirubin AST ALT Alkaline Phosphatase Creatine Kinase Troponin I Total Protein Albumin Procalcitonin Urine RBC Urine WBC Urine WBC Clumps Urine Bacteria 09/14/24 09/14/24 09/14/24 05:30 05:50 11:09 WBC RBC Hgb Hct RDW Plt Count Neutrophils # Neutrophils # (Manual) Lymphocytes # Haptoglobin ABG pH 7.49 H ABG pCO2 ABG pO2 78 L ABG HCO3 29 H ABG Total CO2 30 H ABG O2 Saturation VBG pH VBG HCO3 Hemoglobin 7.3 L Sodium 128 L Potassium Chloride 96 L Carbon Dioxide BUN 48 H Creatinine 2.69 H Glucose POC Glucose (mg/dL) 115 H Plasma Lactic Acid Portillo Calcium 7.2 L Ionized Calcium Antony Phosphorus Magnesium Total Bilirubin 6.8 H AST 77 H ALT Alkaline Phosphatase 237 H Creatine Kinase Troponin I Total Protein 5.1 L Albumin 1.9 L Procalcitonin Urine RBC Urine WBC Urine WBC Clumps Urine Bacteria 09/14/24 09/15/24 09/15/24 11:10 05:34 05:36 WBC RBC Hgb Hct RDW Plt Count Neutrophils # Neutrophils # (Manual) Lymphocytes # Haptoglobin 402.0 H ABG pH ABG pCO2 ABG pO2 ABG HCO3 ABG Total CO2 ABG O2 Saturation VBG pH VBG HCO3 Hemoglobin Sodium Potassium Chloride Carbon Dioxide BUN Creatinine Glucose POC Glucose (mg/dL) 51 L 51 L Plasma Lactic Acid Portillo Calcium Ionized Calcium Antony Phosphorus Magnesium Total Bilirubin AST ALT Alkaline Phosphatase Creatine Kinase Troponin I Total Protein Albumin Procalcitonin Urine RBC Urine WBC Urine WBC Clumps Urine Bacteria 09/15/24 09/15/24 09/15/24 05:40 08:24 08:24 WBC 11.5 H RBC 2.56 L Hgb 7.4 L Hct 23.2 L RDW Plt Count Neutrophils # 9.3 H Neutrophils # (Manual) Lymphocytes # Haptoglobin ABG pH 7.47 H ABG pCO2 ABG pO2 128 H ABG HCO3 29 H ABG Total CO2 30 H ABG O2 Saturation 99.5 H VBG pH VBG HCO3 Hemoglobin 7.3 L Sodium 130 L Potassium Chloride 95 L Carbon Dioxide BUN 51 H Creatinine 2.69 H Glucose POC Glucose (mg/dL) Plasma Lactic Acid Portillo Calcium 7.1 L Ionized Calcium Antony Phosphorus Magnesium Total Bilirubin 6.9 H AST 272 H ALT 101 H Alkaline Phosphatase 307 H Creatine Kinase Troponin I Total Protein 5.1 L Albumin 2.0 L Procalcitonin Urine RBC Urine WBC Urine WBC Clumps Urine Bacteria 09/15/24 09/16/24 09/16/24 17:39 00:09 05:20 WBC RBC Hgb Hct RDW Plt Count Neutrophils # Neutrophils # (Manual) Lymphocytes # Haptoglobin ABG pH ABG pCO2 ABG pO2 ABG HCO3 ABG Total CO2 ABG O2 Saturation VBG pH VBG HCO3 Hemoglobin Sodium 129 L Potassium Chloride Carbon Dioxide BUN 51 H Creatinine 2.32 H Glucose 162 H POC Glucose (mg/dL) 130 H 162 H Plasma Lactic Acid Portillo Calcium 7.2 L Ionized Calcium Antony Phosphorus Magnesium Total Bilirubin 3.8 H AST 67 H ALT 71 H Alkaline Phosphatase 264 H Creatine Kinase Troponin I Total Protein 5.1 L Albumin 1.9 L Procalcitonin Urine RBC Urine WBC Urine WBC Clumps Urine Bacteria 09/16/24 09/16/24 09/16/24 05:20 05:38 05:55 WBC 10.9 H RBC 2.58 L Hgb 7.5 L Hct 23.2 L RDW 16.1 H Plt Count Neutrophils # Neutrophils # (Manual) 8.20 H Lymphocytes # Haptoglobin ABG pH ABG pCO2 ABG pO2 110 H ABG HCO3 27 H ABG Total CO2 29 H ABG O2 Saturation 98.8 H VBG pH VBG HCO3 Hemoglobin 7.4 L Sodium Potassium Chloride Carbon Dioxide BUN Creatinine Glucose POC Glucose (mg/dL) 177 H Plasma Lactic Acid Portillo Calcium Ionized Calcium Antony Phosphorus Magnesium Total Bilirubin AST ALT Alkaline Phosphatase Creatine Kinase Troponin I Total Protein Albumin Procalcitonin Urine RBC Urine WBC Urine WBC Clumps Urine Bacteria 09/16/24 09/16/24 09/16/24 11:24 17:42 23:24 WBC RBC Hgb Hct RDW Plt Count Neutrophils # Neutrophils # (Manual) Lymphocytes # Haptoglobin ABG pH ABG pCO2 ABG pO2 ABG HCO3 ABG Total CO2 ABG O2 Saturation VBG pH VBG HCO3 Hemoglobin Sodium Potassium Chloride Carbon Dioxide BUN Creatinine Glucose POC Glucose (mg/dL) 223 H 173 H 132 H Plasma Lactic Acid Portillo Calcium Ionized Calcium Antony Phosphorus Magnesium Total Bilirubin AST ALT Alkaline Phosphatase Creatine Kinase Troponin I Total Protein Albumin Procalcitonin Urine RBC Urine WBC Urine WBC Clumps Urine Bacteria 09/17/24 09/17/24 09/17/24 05:18 05:48 06:05 WBC RBC 2.28 L Hgb 6.9 L* Hct 21.2 L RDW 15.9 H Plt Count Neutrophils # Neutrophils # (Manual) Lymphocytes # Haptoglobin ABG pH ABG pCO2 ABG pO2 124 H ABG HCO3 ABG Total CO2 26 H ABG O2 Saturation 99.4 H VBG pH VBG HCO3 Hemoglobin 7.2 L Sodium Potassium Chloride Carbon Dioxide BUN Creatinine Glucose POC Glucose (mg/dL) 49 L* Plasma Lactic Acid Portillo Calcium Ionized Calcium Antony Phosphorus Magnesium Total Bilirubin AST ALT Alkaline Phosphatase Creatine Kinase Troponin I Total Protein Albumin Procalcitonin Urine RBC Urine WBC Urine WBC Clumps Urine Bacteria 09/17/24 09/17/24 09/17/24 06:05 06:08 11:51 WBC RBC Hgb Hct RDW Plt Count Neutrophils # Neutrophils # (Manual) Lymphocytes # Haptoglobin ABG pH ABG pCO2 ABG pO2 ABG HCO3 ABG Total CO2 ABG O2 Saturation VBG pH VBG HCO3 Hemoglobin Sodium 131 L Potassium Chloride Carbon Dioxide BUN 70 H Creatinine 3.53 H Glucose 150 H POC Glucose (mg/dL) 135 H 121 H Plasma Lactic Acid Portillo Calcium 6.9 L Ionized Calcium Antony Phosphorus Magnesium Total Bilirubin AST ALT Alkaline Phosphatase Creatine Kinase Troponin I Total Protein Albumin Procalcitonin Urine RBC Urine WBC Urine WBC Clumps Urine Bacteria Assessment and Plan Assessment: This is a 64-year-old gentleman who presented emergency department on 09/04/2024 since was found down and unknown downtime and he was found last normal by his sister about 2 weeks ago prior to that. He presents with acute rhabdomyolysis and has sepsis, acute renal failure. It seems that on 09/16/2024 around 1830 p atient had possible seizure-like activity noted by the nurse lasting for 1 minute with questionable postictal event for 30 minutes. The last 2 days patient has been having sugar in the 40s to 50s. Possible seizure-like activity and probably provoked due to hypoglycemia, electrolyte imbalance underlying infection. Altered mental status seems due to multifactorial, metabolic encephalopathy, septic encephalopathy, hepatic encephalopathy, . On examination patient tracks looking to the left and moves head [id number]. Hypoglycemia as low as 40s to 50s Hypocalcemia Acute rhabdomyolysis--trending down Mechanical fall at home 2 weeks prior Transaminitis Hypertension Hyperlipidemia History of renal cell cancer and patient has right kidney mass post cryoablation at [facility] Anemia trending down Sepsis and it seems the patient has urinary tract infection, pneumonia cannot rule out Otomastoiditis as per CT head imaging Acute on chronic kidney insufficiency the patient is getting dialysis--trending down Underlying diabetes mellitus Plan: I ordered a routine EEG Recommend MRI of the brain with and without once the patient is extubated and if possible with gadolinium if kidney drastically improves. Patient is on Keppra 500 mg twice daily that was started by the ICU attending Ordered TSH, vitamin B12. Recommend avoiding hypoglycemia and correct electrolyte imbalance Recommend lumbar puncture if patient continues to be confused even though his electrolyte and sepsis is controlled Infection diseases on board and there is a concern for ?Otomastoiditis and will defer management to I.D. team. Will defer the rest of the medical management the primary and other specialist. Thank you for the consultation Dr. Lackey will resume neurology service tomorrow AM Time with Patient: Greater than 30
[2024-09-17 17:10] LABS: Glucose,Whole Blood 160 mg/dL (70-110)
--- NOTE | 2024-09-17 21:58 | PN ---
PROGRESS NOTE DATE OF SERVICE: 09/17/2024 SUBJECTIVE: This is a 64-year-old gentleman who was admitted with metabolic encephalopathy, sepsis, UTI, rhabdomyolysis, also had acute hypoxic respiratory failure. The patient also had hypotension. The patient is on hemodialysis. The patient also had hyperbilirubinemia. Blood sugar is also fluctuating. The most recent bilirubin was 3.8 showing some improving trend. Creatinine is elevated up to 3.53. The patient is unresponsive. Hemoglobin 6.9 today. PAST MEDICAL HISTORY: Reviewed. REVIEW OF SYSTEMS: Could not be taken. CURRENT MEDICATIONS: Reviewed. PHYSICAL EXAMINATION: VITAL SIGNS: Pulse is 84, blood pressure 142/51, respirations 22. HEENT: Conjunctivae pale. NECK: No JVD. CARDIOVASCULAR: S1, S2. RESPIRATIONS: Breath sounds diminished at the bases. A few scattered rhonchi. ABDOMEN: Soft. NERVOUS SYSTEM: Nonfocal. LABORATORY DATA: Hemoglobin 6.9. ASSESSMENT: 1. Enterobacter cloacae sepsis with urinary tract infection, present on admission. 2. Acute hypoxic respiratory failure, on mechanical ventilation. 3. Acute on chronic renal failure. Continue chronic hemodialysis. 4. Anemia, multifactorial. 5. Acute diabetic ketoacidosis present on admission. 6. Rhabdomyolysis, present on admission. 7. Diabetes mellitus, type 2. 8. Hyperlipidemia. 9. Jaundice and liver failure with liver function test improving. Bilirubin is improving. 10.Bilateral pneumonia. 11.NO CODE, NO CPR, NO VENT. RECOMMENDATIONS AND DISCUSSION: Recommend to continue current management and continue symptomatic treatment. Otherwise, at this time, chest x-ray showed some left pleural effusion as well. I would recommend continue with current medications. Continue with empiric antibiotics. Follow closely with multiple consultants. The urine culture showed some gram-negative bacilli from 18th, which is rather persistent. CT abdomen and pelvis showed some cholelithiasis. Prognosis guarded. Further recommendations to follow. MMODL / IJN: [id number] /
[2024-09-17 23:17] LABS: Glucose,Whole Blood 197 mg/dL (70-110)
[2024-09-18 04:45] LABS: ALT 64 U/L (4-49); AST 66 U/L (17-59); African American GFR (CKD) 28 (>60 ml/min/1.73 sqM); Albumin 1.9 g/dL (3.5-5.0); Alkaline Phosphatase 230 U/L (38-126); Anion Gap 4 mmol/L; Blood Urea Nitrogen 54 mg/dL (9-20); Calcium 6.8 mg/dL (8.4-10.2); Carbon Dioxide 25 mmol/L (22-30); Chloride 100 mmol/L (98-107); Glucose 218 mg/dL (74-99); Non-African American GFR(CKD) 24 (>60 ml/min/1.73 sqM); Potassium 4.5 mmol/L (3.5-5.1); Sodium 129 mmol/L (137-145); Total Bilirubin 2.8 mg/dL (0.2-1.3)
[2024-09-18 05:46] LABS: ABG Base Excess 1.9 mmol/L; ABG HCO3 26 mmol/L (21-25); ABG Oxygen Saturation 97.9 % (94-97); ABG PCO2 40 mmHg (35-45); ABG PH 7.43 (7.35-7.45); ABG PO2 92 mmHg (83-108); ABG TCO2 28 mmol/L (19-24); Allen Test Performed? Yes
[2024-09-18 05:58] LABS: Anisocytosis Slight; HCT 22.1 % (39.0-53.0); Hypochromasia Slight; MCHC 31.6 g/dL (31.0-37.0); MCV 91.6 fL (80.0-100.0); Mean Platelet Volume 9.3; Platelet Count 419 k/uL (150-450); RBC 2.41 m/uL (4.30-5.90); RDW 16.5 % (11.5-15.5); WBC 8.7 k/uL (3.8-10.6)
[2024-09-18 06:00] LABS: Glucose,Whole Blood 243 mg/dL (70-110)
[2024-09-18 06:58] LABS: Band Neutrophils % 3 %; Eosinophils # (M) 0.17 k/uL (0-0.7); Lymphocytes # (M) 1.13 k/uL (1.0-4.8); Monocytes # (M) 0.78 k/uL (0-1.0); Neutrophils % (M) 73 %; Nucleated Red Blood Cells 0 /100 WBC (0-0); Poikilocytosis (M) Present; Total Cells Counted 100
--- NOTE | 2024-09-18 08:55 | P.PN ---
Subjective Progress Note Date: 09/17/24 Principal diagnosis: Reason for follow-up is sepsis and bacteremia Patient is a 64-year-old male with a past medical history significant for diabetes mellitus hyperlipidemia, chronic kidney disease patient has been brought to the hospital after the patient was found on the ground for unknown amount of time patient was noted to be septic requiring admission to the ICU on the ventilator subsequent did have a positive blood culture with Enterobacter. On today's evaluation that is 09/17/2024, patient did have improvement in his fever pattern and has been afebrile this morning, patient remains to be on ventilator FiO2 is currently stable at 35% no significant purulent secretion through the ET or any other changes reported. Patient white count is 9.8 creatinine is 3.53 urine is growing gram-negative repeat blood cultures so far negative Objective - Vital Signs Vital signs: Vital Signs Temp 97.4 F L 09/17/24 08:00 Pulse 70 09/17/24 11:43 Resp 20 09/17/24 10:30 BP 138/61 09/16/24 22:00 Pulse Ox 100 09/17/24 10:30 FiO2 35 09/17/24 11:31 Intake & Output 09/16/24 09/17/24 09/17/24 18:59 06:59 18:59 Intake Total 983.372 962.396 233.186 Output Total 20 20 5 Balance 963.372 942.396 228.186 Weight 91.4 kg Intake: IV 176 192 64 LR 110 120 40 a line + CVP 66 72 24 Intake, IV Titration 112.372 20.396 29.186 Amount Norepinephrine 8 mg In 112.372 20.396 29.186 Sodium Chloride 0.9% 250 ml @ 0.03 MCG/KG/MIN 4. 737 mls/hr IV .Q24H [facility] Rx#:[id number] Tube Feeding 605 660 110 Other 90 90 30 Output: Urine 20 20 5 Other: Voiding Method Indwelling Catheter Indwelling Catheter Indwelling Catheter # Bowel Movements 1 ABP, PAP, CO, CI - Last Documented Arterial Blood Pressure 119/52 - Exam GENERAL DESCRIPTION: An elderly male intubated on the vent RESPIRATORY SYSTEM: Unlabored breathing , decreased breath sounds at bases HEART: S1 S2 regular rate and rhythm , ABDOMEN: Soft , no tenderness EXTREMITIES: No edema feet - Labs CBC & Chem 7: 09/18/24 04:01 09/18/24 04:01 Labs: Abnormal Lab Results - Last 24 Hours (Table) 09/16/24 09/16/24 09/17/24 Range/Units 17:42 23:24 05:18 RBC (4.30-5.90) m/uL Hgb (13.0-17.5) gm/dL Hct (39.0-53.0) % RDW (11.5-15.5) % ABG pO2 124 H (83-108) mmHg ABG Total CO2 26 H (19-24) mmol/L ABG O2 Saturation 99.4 H (94-97) % Hemoglobin 7.2 L (13.0-17.5) gm/dL Sodium (137-145) mmol/L BUN (9-20) mg/dL Creatinine (0.66-1.25) mg/dL Glucose (74-99) mg/dL POC Glucose (mg/dL) 173 H 132 H (70-110) mg/dL Calcium (8.4-10.2) mg/dL 09/17/24 09/17/24 09/17/24 Range/Units 05:48 06:05 06:05 RBC 2.28 L (4.30-5.90) m/uL Hgb 6.9 L* (13.0-17.5) gm/dL Hct 21.2 L (39.0-53.0) % RDW 15.9 H (11.5-15.5) % ABG pO2 (83-108) mmHg ABG Total CO2 (19-24) mmol/L ABG O2 Saturation (94-97) % Hemoglobin (13.0-17.5) gm/dL Sodium 131 L (137-145) mmol/L BUN 70 H (9-20) mg/dL Creatinine 3.53 H (0.66-1.25) mg/dL Glucose 150 H (74-99) mg/dL POC Glucose (mg/dL) 49 L* (70-110) mg/dL Calcium 6.9 L (8.4-10.2) mg/dL 09/17/24 09/17/24 Range/Units 06:08 11:51 RBC (4.30-5.90) m/uL Hgb (13.0-17.5) gm/dL Hct (39.0-53.0) % RDW (11.5-15.5) % ABG pO2 (83-108) mmHg ABG Total CO2 (19-24) mmol/L ABG O2 Saturation (94-97) % Hemoglobin (13.0-17.5) gm/dL Sodium (137-145) mmol/L BUN (9-20) mg/dL Creatinine (0.66-1.25) mg/dL Glucose (74-99) mg/dL POC Glucose (mg/dL) 135 H 121 H (70-110) mg/dL Calcium (8.4-10.2) mg/dL Microbiology - Last 24 Hours (Table) 09/14/24 15:40 Blood Culture - Preliminary Blood 09/12/24 13:31 Urine Culture - Final Urine,Catheterized Gram Neg Bacilli Assessment and Plan (1) Sepsis Current Visit: Yes Status: Acute Code(s): A41.9 - SEPSIS, UNSPECIFIED ORGANISM SNOMED Code(s): 39600952 (2) Pneumonia Current Visit: Yes Status: Acute Code(s): J18.9 - PNEUMONIA, UNSPECIFIED ORGANISM SNOMED Code(s): 345624419 (3) UTI (urinary tract infection) Current Visit: No Status: Acute Code(s): N39.0 - URINARY TRACT INFECTION, SITE NOT SPECIFIED SNOMED Code(s): 48027678 Plan: 1patient with sepsis in this patient who did have a fever hyortension requiring pressor support maintaining criteria for SIRS source is likely UTI pneumonia not entirely excluded 2-blood culture came back positive with Enterobacter and Serratia, urine is growing Enterobacter 3-patient CT abdominal pelvis did not show any intra-abdominal pelvic abscess concerning for bibasilar pneumonia and cholelithiasis 4patient did have some improvement in his fever pattern and his white count is normalized 5- patient did have improvement in the fever pattern white count is normal, patient will be treated with cefepime to cover for the Enterobacter and Serratia that was grown on the initial culture and monitor clinical course closely Dictation was produced using [employer] dictation software. please excuse any grammatical, word or spelling errors. Time with Patient: Less than 30
--- NOTE | 2024-09-18 09:03 | XR ---
EXAMINATION TYPE: XR chest 1V portable DATE OF EXAM: 09/18/2024 5:09 AM COMPARISON: 09/17/2024 CLINICAL INDICATION: Male, 64 years old with history of mechanical ventilation, , FINDINGS: ET and NG tubes are satisfactory. Heart borderline in size. Diffuse interstitial opacities persist. P atchy left basilar/retrocardiac opacity also persists. IMPRESSION: Diffuse interstitial densities and patchy left basilar opacity, overall similar appearance. [facility], , 09/18/2024 9:01 AM
--- NOTE | 2024-09-18 10:02 | P.PN ---
Subjective Patient is seen in follow-up for acute kidney injury on chronic kidney disease. Started on hemodialysis September 06, 2024 via right femoral catheter. Catheter was not functioning well and new catheter was placed September 11, 2024. Oliguric. Intubated. Receiving tube feeds. Tolerating dialysis well. On low-dose Levophed. Vital signs are stable. On vasopressor support. General: Resting in bed. HEENT: Intubated. LUNGS: Scattered rhonchi. HEART: Rate and Rhythm are regular. ABDOMEN: No distention. EXTREMITITES: 1+ edema. Scrotal edema noted. Objective - Vital Signs Vital signs: Vital Signs Temp 98.6 F 09/18/24 04:00 Pulse 100 09/18/24 08:19 Resp 20 09/18/24 07:00 BP 125/59 09/18/24 07:00 Pulse Ox 99 09/18/24 07:00 FiO2 35 09/18/24 08:14 Intake & Output 09/17/24 09/18/24 09/18/24 18:59 06:59 18:59 Intake Total 1283.949 994.055 78.553 Output Total 4405 15 0 Balance -3121.051 979.055 78.553 Weight 89.9 kg 89.9 kg Intake: IV 192 192 16 LR 120 120 10 a line + CVP 72 72 6 Intake, IV Titration 51.949 52.055 7.553 Amount Norepinephrine 8 mg In 51.949 52.055 7.553 Sodium Chloride 0.9% 250 ml @ 0.03 MCG/KG/MIN 4. 737 mls/hr IV .Q24H [facility] Rx#:[id number] Tube Feeding 550 660 55 Hemodialysis 400 Other 90 90 Output: Urine 5 15 0 Hemodialysis 2400 Hemodialysis Net Amount 2000 Other: Voiding Method Indwelling Catheter Indwelling Catheter # Bowel Movements 1 ABP, PAP, CO, CI - Last Documented Arterial Blood Pressure 125/43 - Labs CBC & Chem 7: 09/18/24 04:01 09/18/24 04:01 Labs: Abnormal Lab Results - Last 24 Hours (Table) 09/17/24 09/17/24 09/17/24 Range/Units 06:05 11:51 17:08 RBC (4.30-5.90) m/uL Hgb (13.0-17.5) gm/dL Hct (39.0-53.0) % RDW (11.5-15.5) % ABG HCO3 (21-25) mmol/L ABG Total CO2 (19-24) mmol/L ABG O2 Saturation (94-97) % Hemoglobin (13.0-17.5) gm/dL Sodium (137-145) mmol/L BUN (9-20) mg/dL Creatinine (0.66-1.25) mg/dL Glucose (74-99) mg/dL POC Glucose (mg/dL) 121 H 160 H (70-110) mg/dL Calcium (8.4-10.2) mg/dL Total Bilirubin (0.2-1.3) mg/dL AST (17-59) U/L ALT (4-49) U/L Alkaline Phosphatase (38-126) U/L Total Protein (6.3-8.2) g/dL Albumin (3.5-5.0) g/dL Vitamin B12 1077.0 H (200.0-944.0) pg/mL 09/17/24 09/18/24 09/18/24 Range/Units 23:15 04:01 04:01 RBC 2.41 L (4.30-5.90) m/uL Hgb 7.0 L (13.0-17.5) gm/dL Hct 22.1 L (39.0-53.0) % RDW 16.5 H (11.5-15.5) % ABG HCO3 (21-25) mmol/L ABG Total CO2 (19-24) mmol/L ABG O2 Saturation (94-97) % Hemoglobin (13.0-17.5) gm/dL Sodium 129 L (137-145) mmol/L BUN 54 H (9-20) mg/dL Creatinine 2.69 H (0.66-1.25) mg/dL Glucose 218 H (74-99) mg/dL POC Glucose (mg/dL) 197 H (70-110) mg/dL Calcium 6.8 L (8.4-10.2) mg/dL Total Bilirubin 2.8 H (0.2-1.3) mg/dL AST 66 H (17-59) U/L ALT 64 H (4-49) U/L Alkaline Phosphatase 230 H (38-126) U/L Total Protein 5.0 L (6.3-8.2) g/dL Albumin 1.9 L (3.5-5.0) g/dL Vitamin B12 (200.0-944.0) pg/mL 09/18/24 09/18/24 Range/Units 05:41 05:58 RBC (4.30-5.90) m/uL Hgb (13.0-17.5) gm/dL Hct (39.0-53.0) % RDW (11.5-15.5) % ABG HCO3 26 H (21-25) mmol/L ABG Total CO2 28 H (19-24) mmol/L ABG O2 Saturation 97.9 H (94-97) % Hemoglobin 7.3 L (13.0-17.5) gm/dL Sodium (137-145) mmol/L BUN (9-20) mg/dL Creatinine (0.66-1.25) mg/dL Glucose (74-99) mg/dL POC Glucose (mg/dL) 243 H (70-110) mg/dL Calcium (8.4-10.2) mg/dL Total Bilirubin (0.2-1.3) mg/dL AST (17-59) U/L ALT (4-49) U/L Alkaline Phosphatase (38-126) U/L Total Protein (6.3-8.2) g/dL Albumin (3.5-5.0) g/dL Vitamin B12 (200.0-944.0) pg/mL Microbiology - Last 24 Hours (Table) 09/14/24 15:40 Blood Culture - Preliminary Blood 09/12/24 18:57 Blood Culture - Final Blood Assessment and Plan Plan: Assessment: 1. Acute kidney injury secondary to ATN secondary to septic shock. Oliguric. No hydronephrosis noted on imaging. Started on hemodialysis September 06, 2024 via right femoral catheter; left femoral catheter was placed September 11, 2024. 2. Chronic kidney disease stage IIIb with baseline creatinine 1.8-2 secondary to diabetic kidney disease. 3. Septic shock with blood cultures positive for Enterobacter and Serratia and urine culture positive for Enterobacter. On antibiotics. 4. Metabolic acidosis secondary to acute kidney injury. Improved. 5. Diabetes mellitus. 6. Rhabdomyolysis. CK levels trending down. CK level 680 dated September 10, 2024. 7. Acute hypoxic respiratory failure. Intubated. 8. History of right renal mass not clearly seen on ultrasound this admission. Will need to see urology outpatient. 9. Volume overload. Improving with daily ultrafiltration. 10. Hypervolemic hyponatremia. Better. 11. Anemia of chronic kidney disease. On Aranesp. Hemoglobin 7.0 today. Plan: Currently seen while undergoing hemodialysis. No response in urine output status post IV Lasix given September 11 and September 16, 2024. Maintain tube feeds. Wean FiO2 and vasopressors. Continue to monitor renal function and urine output. Phosphorus level 4.0 dated September 12, 2024. Prognosis guarded. Depending on long-term plans, he will need permacath placed and temporary dialysis catheter removed this week. Case discussed with RN. Comfort measures being considered.
--- NOTE | 2024-09-18 10:04 | P.PN ---
Subjective Progress Note Date: 09/18/24 Principal diagnosis: Acute kidney injury requiring hemodialysis Patient seen and examined today as a follow-up. He remains intubated. Had EEG for possible new onset of seizures. No overall changes. Apparently patient's family is going to make patient comfort care in the next 1 to 2 days. Objective - Vital Signs Vital signs: Vital Signs Temp 98.6 F 09/18/24 04:00 Pulse 100 09/18/24 08:19 Resp 20 09/18/24 07:00 BP 125/59 09/18/24 07:00 Pulse Ox 99 09/18/24 07:00 FiO2 35 09/18/24 08:14 Intake & Output 09/17/24 09/18/24 09/18/24 18:59 06:59 18:59 Intake Total 1283.949 994.055 76.842 Output Total 4405 15 0 Balance -3121.051 979.055 76.842 Weight 89.9 kg Intake: IV 192 192 16 LR 120 120 10 a line + CVP 72 72 6 Intake, IV Titration 51.949 52.055 5.842 Amount Norepinephrine 8 mg In 51.949 52.055 5.842 Sodium Chloride 0.9% 250 ml @ 0.03 MCG/KG/MIN 4. 737 mls/hr IV .Q24H [facility] Rx#:[id number] Tube Feeding 550 660 55 Hemodialysis 400 Other 90 90 Output: Urine 5 15 0 Hemodialysis 2400 Hemodialysis Net Amount 2000 Other: Voiding Method Indwelling Catheter Indwelling Catheter # Bowel Movements 1 ABP, PAP, CO, CI - Last Documented Arterial Blood Pressure 125/43 - Exam General appearance: The patient is sedated and intubated HET: Head is normocephalic and atraumatic. Neck: Supple. Heart: Regular. Lungs: Equal expansion, on mechanical ventilation. Abdomen: Soft, nondistended. Extremities: Normal skin color and turgor. Right groin with dressing clean dry and intact, no hematoma or bleeding noted. Left groin with temporary HD catheter with dressing, clean dry and intact. Neurological: Sedated and intubated. - Labs CBC & Chem 7: 09/18/24 04:01 09/18/24 04:01 Labs: Abnormal Lab Results - Last 24 Hours (Table) 09/17/24 09/17/24 09/17/24 Range/Units 06:05 11:51 17:08 RBC (4.30-5.90) m/uL Hgb (13.0-17.5) gm/dL Hct (39.0-53.0) % RDW (11.5-15.5) % ABG HCO3 (21-25) mmol/L ABG Total CO2 (19-24) mmol/L ABG O2 Saturation (94-97) % Hemoglobin (13.0-17.5) gm/dL Sodium (137-145) mmol/L BUN (9-20) mg/dL Creatinine (0.66-1.25) mg/dL Glucose (74-99) mg/dL POC Glucose (mg/dL) 121 H 160 H (70-110) mg/dL Calcium (8.4-10.2) mg/dL Total Bilirubin (0.2-1.3) mg/dL AST (17-59) U/L ALT (4-49) U/L Alkaline Phosphatase (38-126) U/L Total Protein (6.3-8.2) g/dL Albumin (3.5-5.0) g/dL Vitamin B12 1077.0 H (200.0-944.0) pg/mL 09/17/24 09/18/24 09/18/24 Range/Units 23:15 04:01 04:01 RBC 2.41 L (4.30-5.90) m/uL Hgb 7.0 L (13.0-17.5) gm/dL Hct 22.1 L (39.0-53.0) % RDW 16.5 H (11.5-15.5) % ABG HCO3 (21-25) mmol/L ABG Total CO2 (19-24) mmol/L ABG O2 Saturation (94-97) % Hemoglobin (13.0-17.5) gm/dL Sodium 129 L (137-145) mmol/L BUN 54 H (9-20) mg/dL Creatinine 2.69 H (0.66-1.25) mg/dL Glucose 218 H (74-99) mg/dL POC Glucose (mg/dL) 197 H (70-110) mg/dL Calcium 6.8 L (8.4-10.2) mg/dL Total Bilirubin 2.8 H (0.2-1.3) mg/dL AST 66 H (17-59) U/L ALT 64 H (4-49) U/L Alkaline Phosphatase 230 H (38-126) U/L Total Protein 5.0 L (6.3-8.2) g/dL Albumin 1.9 L (3.5-5.0) g/dL Vitamin B12 (200.0-944.0) pg/mL 09/18/24 09/18/24 Range/Units 05:41 05:58 RBC (4.30-5.90) m/uL Hgb (13.0-17.5) gm/dL Hct (39.0-53.0) % RDW (11.5-15.5) % ABG HCO3 26 H (21-25) mmol/L ABG Total CO2 28 H (19-24) mmol/L ABG O2 Saturation 97.9 H (94-97) % Hemoglobin 7.3 L (13.0-17.5) gm/dL Sodium (137-145) mmol/L BUN (9-20) mg/dL Creatinine (0.66-1.25) mg/dL Glucose (74-99) mg/dL POC Glucose (mg/dL) 243 H (70-110) mg/dL Calcium (8.4-10.2) mg/dL Total Bilirubin (0.2-1.3) mg/dL AST (17-59) U/L ALT (4-49) U/L Alkaline Phosphatase (38-126) U/L Total Protein (6.3-8.2) g/dL Albumin (3.5-5.0) g/dL Vitamin B12 (200.0-944.0) pg/mL Microbiology - Last 24 Hours (Table) 09/14/24 15:40 Blood Culture - Preliminary Blood 09/12/24 18:57 Blood Culture - Final Blood Assessment and Plan Assessment: 1. Acute kidney injury requiring hemodialysis status post temporary HD catheter placement 2. Malfunctioning temporary HD catheter status post replacement 3. Altered mental status changes 4. Rhabdomyolysis 5. Positive UTI 6. Bacteremia Plan: Patient's family is going to move forward with comfort measures in the next 1 to 2 days. No plans for permacath placement. Vascular surgery will sign off at this time. 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 The impression and plan of care has been dictated as directed. Dr. Santiago I performed a history and examination of this patient, discussed the same with the dictator. I agree with the dictator's note ,documented as a scribe. Any additional findings or plans will be noted.
--- NOTE | 2024-09-18 11:38 | P.PN ---
Subjective Progress Note Date: 09/18/24 Principal diagnosis: Acute hypoxic respiratory failure, acute sepsis and septic shock secondary to Serratia marcescens and Enterobacter cloacae and severe LV dysfunction Patient is a 64-year-old male with past medical history significant for diabetes mellitus, chronic kidney disease, hyperlipidemia, hypertension, among other things. Patient is currently in the intensive care unit, he is a poor historian. Unable to provide reliable history. The ER provider did not contact me. Per the ER documentation, patient was found on the ground for an unknown known amount of time, last seen well 2 weeks prior by his sister. He was found to be in acute rhabdomyolysis with acute renal failure. He was also found with elevated blood sugars. CT of the brain and C-spine without contrast showing no acute intracranial process and no acute osseous abnormalities of the C-spine. Initial labs include a CBC: WBC count 17.3, hemoglobin 14.6, hematocrit 45.1, platelets 226. CMP: Sodium 136, potassium 5.7, chloride 95, serum bicarb 14, BUN 137, creatinine 8.82, glucose 578. Lactic 1.5. Magnesium 2.7. LFTs mildly elevated. Troponin 0.043. NT proBNP 4510. EKG: normal sinus rhythm, rate 88 bpm, incomplete RBB pattern, without obvious acute ischemic changes. Urine drug screen unremarkable. Serum ETOH < 10. Currently evaluating this patient in the intensive care unit. CPK was 7555 on arrival. Did receive 1.5 L normal saline bolus in in ED and started on normal saline at 130 ml/hr. Subsequently started on sodium bicarbonate infusion 3 A in D5W at 100 mL/h. urine output is in the order of 30 to 50 cc/h. Nephrology is managing. Repeat potassium is down to 4.7. On arrival blood glucose 578, serum bicarb 12, anion gap 27, acetone positive. Patient has also been started on insulin infusion Per protocol. He did develop some respiratory distress, breathing in the high 40s. I did ask for the pateint to be placed on BiPAP with settings 10/5 and FiO2 to be titrated kushal ropriately. Chest x-ray showing cardiomegaly. There is a left midlung linear infiltrates concerning for atelectasis or early pneumonia. Patient does have bruising to his left lateral chest. It is painful to palpation without crepitus or subcutaneous emphysema. Patient was empirically started on antibiotics in the ED.Current vitals: 97.6 F, blood pressure 115/85 mmHg, heart rate 78 bpm, tachypneic breathing in the high 40s, SpO2 is 100% on BiPAP with settings 10/5 FiO2 100%. Prognosis is guarded. 09/06/24 - Patient seen at bedside this morning, remaining in the ICU, day 2 of hospitalization, admitted on 09/05/24 and in the ICU since that time. He was placed to mechanical ventilation with intubation yesterday (09/05/24). He is on assist-control with a rate of 20, volume 450, FiO2 40%, PEEP of 5. ABG this morning showed pO2 72, pCO2 34, pH 7.46, indicating respiratory alkalosis with relative hypoxemia. Initial improvement in his WBCs down to 13.6 (from 14.8) this morning, his hemoglobin decreased to 11.2. His BUN is 138, creatinine 7.61. Increase in AST, 3-4, and ALT, up to 113. Phosphorus 5.0, remaining 9, calcium 6.6, remaining well. Creatinine Kinase remains elevated, showing improvements, to 6149. His procalcitonin returned at > 100. His blood cultures were positive for Enterobacter cloacae without resistance noted, patient placed on cefepime - discontinued Rocephin and Zithromax. Patient remained Levophed at 0.09 mcg/kg/min (7.26 mcg/min) and propofol 40 mcg/kg/min. Blood pressure this morning 113/52. He will be started on vital HP 10 cc/h, with a goal being 37 cc/h. 09/07/24 - Patient seen at bedside today, remaining in the ICU, day 3 of hospitalization. Admitted on 09/05/24 and in the ICU since that time. He has been intubated on mechanical ventilation since 09/05/24. He remains on assist- control with a rate of 20, volume 450, FiO2 50% and a PEEP of 8. ABG this morning showed pO2 59, pCO2 34, pH 7.46 which indicated respiratory alkalosis with some metabolic alkalosis - this was done while the patient was on an FiO2 of 40%. At that time, patient's FiO2 was up to 50% and his PEEP was increased to 8, since that time he has been saturating well. This morning his WBCs are 9.9, hemoglobin 10.1, platelet count 76, sodium 134, BUN 88, creatinine 4.68, calcium 6.4 and ionized calcium 3.7. Most recent creatinine kinase 2760. Because of the patient's relative hypocalcemia he received 1 g of calcium gluconate. The CVP has been slightly elevated since its insertion, at the time of insertion read ~9, however when seen the patient it was reading 6 indicated the patient is likely euvolemic. Patient remains on Levophed 0.01 mcg/kg/min (8 mcg/min), and on propofol 40 mcg/kg/min and vital HP at 30 cc/h (goal of 37 cc/h). He remains on cefepime and lactated ringer 100 cc/h. His urine was positive, preliminarily, for gram-negative bacilli. Preliminary results of blood culture showed Enterobacter cloacae and Serratia marcescens. 09/08/24 - Patient seen at bedside today, remaining in the ICU, day 4 of hospitalization. Admitted on 09/05/24 and in the ICU since that time. He has been intubated and mechanically ventilated since 09/05/24. He remains on assist-control with a rate of 20, volume 450, FiO2 50% and PEEP of 8. ABG done this morning showed pO2 60, pCO2 32, pH 7.45 indicating a respiratory alkalosis with some evidence of metabolic alkalosis. Patient uneventful overnight. WBCs 10.2, hemoglobin 9.4, sodium 133, BUN 63, creatinine 3.91, calcium 6.7. Patient CVP has been elevated, most recently at 12, indicating some possible hypervolemia. Patient allan on propofol 30 mcg/kg/min, Levophed 0.23 mcg/kg/min (~19 mcg/min), and cefepime. Patient's hemodialysis yesterday, 500 cc was removed. Per the hemodialysis nurse, patient's blood pressure dropped at the start of treatment, leading to pressors being increased at that time. Urine culture now final, positive for Enterobacter cloacae. Blood culture remains preliminary at this time for Enterobacter cloacae and Serratia marcescens. The patient is seen today September 09, 2024 in follow-up in the intensive care unit. He remains intubated on the mechanical ventilator and assist-control mode at a rate of 20, tidal volume 450, FiO2 50% and a PEEP of 8. Morning blood gases revealed a PaO2 of 86, pCO2 33 and a pH of 7.45. He is currently on norepinephrine at 27 mcg/min. Vasopressin at 0.03 units/min. Propofol at 30 mcg/kg/min. Lactated Ringer's at 10 mL/h. Receiving vital HP at 37 mL/h which is goal. He remains on cefepime for Enterobacter Cloacae in the urine. Enterobacter Cloacae and Serratia marcescens in the blood. Have a Tmax last night of 103.4. Currently 99.4. White count 13.5. Hemoglobin 9.6. Platelets 119. Sodium 133. Potassium 3.9. Bicarb 21. BUN 59. Creatinine 3.35. Glucose 245. He is continued on DuoNeb and elations. Heparin for DVT prophylaxis. Remains on Levemir and Lovenox sliding scale. He is currently in a +1.8 L balance. Chest x-ray shows persistent mild to moderate central vascular congestion bilaterally. He has been receiving hemodialysis. On 09/10/2024, the patient is being seen for a follow-up. Remains intubated on the mechanical ventilator. This morning, the patient is on propofol running at 30 mcg/kg/min. He is calm and comfortable and synchronous on mechanical ventilator. He is on assist-control mode of mechanical ventilation at rate of 20, tidal volume of 450, FiO2 of 50% with a PEEP of 5. His chest x-ray from today showing pulmonary vascular congestion and possibly some small bilateral pleural effusion. ET tube is around 4 cm above the nicol. No airspace disease or any consolidations noted. The pH is at 7.39 with a pCO2 of 34 and pO2 of 62. The patient is currently on pressors and is on norepinephrine running at 0.13 mcg/kg/min and he is also on vasopressin physiologic dose regarding his underlying gram-negative sepsis. Antibiotic coverage with IV cefepime for now. Afebrile, urine output is in the order of 5 cc an hour as the patient has developed an acute on top of chronic kidney injury and the fluid balance over the past 24 hours is +2.0 L. The patient is undergoing hemodialysis for now. Hemodialysis catheter is in the right femoral vein. His last hemodialysis session was on 09/09/2024 and another session of hemodialysis is to be done today. The patient blood work from today shows a WBC count of 11.3 with a hemoglobin of 9.7 and a platelet count of 116. Sodium is at 131, bicarb is at 18, potassium is at 4.4, BUN is 81 with a creatinine of 3.8. His liver function tests have improved including a drop in the AST and ALT. Alkaline phosphatase is also down to 218. Albumin is at 1.8 with a total protein of 4.4. As stated earlier, the cultures were positive for Enterobacter in his urine and blood. The blood also showed Serratia marcescens. His echocardiogram done during this current admission shows impaired LV function with an ejection fraction of 30% and there is global decrease in the contractility probably due to his underlying sepsis. He is receiving enteral feeding for nutritional support and is currently on THP vital HP vital HP at a rate of 37 cc an hour. IVF are KVO. On 09/11/2024, the patient is being seen in follow-up in the intensive care unit. The patient remains intubated on the mechanical ventilator. This morning, the patient is on propofol running at 50 mcg/kg/min. Earlier this morning, a blood gas was done as the patient was on a assist-control mode at a rate of 20 with a tidal volume of 450 and FiO2 of 50% with a PEEP of 8. The patient was found to be hypoxic with a pH of 7.41 with a pCO2 of 34 and pO2 54. The PEEP accordingly was brought up to 12. Current pulse ox is around 92 to 93%. The patient is still having episodes of fever. Remains septic and the patient remains on pressors and the patient is currently on norepinephrine running with 0.13 mcg/kg/min and vasopressin at 0.03 units. The patient is on IV cefepime. A CAT scan of the abdomen and pelvis was done yesterday and the patient was found to have consolidation in lung bases bilaterally consistent with pneumonia. Based on that, I recommended broadening his antibiotic coverage. Noted the patient was also supposed to undergo hemodialysis yesterday. He did have a problem with his hemodialysis catheter and the dialys is was not successful. Based on that, the catheter was exchanged and the patient was given another dialysis catheter in his left femoral vein today. Hemodialysis to follow today. The patient remains on vital high-protein for enteral feeding and titrate support at rate of 48 cc an hour. Meanwhile, he is white cell count of 12.6 with a hemoglobin 8.9 and platelet count of 155. BUN is 92 with a creatinine of 4.5 and a sodium levels at 1 of 32 and a potassium level is at 4.4. Serum bicarb is 18. Calcium level is at 7.1. LFTs are within normal limits. Sputum samples were sent for culture. Antibiotic modification was done and the patient was taken off the cefepime and the patient was started on a combination of IV Invanz and Vanco mycin. The patient remains on amiodarone 200 mg p.o. twice a day. The patient is on DuoNeb nebulized treatments [id number]. He is receiving Levemir insulin 20 units twice daily and NovoLog sliding scale coverage. On 09/12/2024, the patient remains intubated on mechanical ventilator. No significant change in his condition since yesterday. Noted the patient was given a session of hemodialysis yesterday and is undergoing another session of hemodialysis this morning. The patient remains sedated on propofol. He remains on 50 mcg/kg/min and the patient will be given a sedation holiday to assess his underlying mental status. He remains on the mechanical ventilator assist- control mode with rate of 20, tidal volume of 450, FiO2 55% with a PEEP of 12. Blood gas showed a pH of 7.47 with a pCO2 of 34 and a pO2 of 81. He is still having episodes of fever with a temperature of 101.6. His antibiotics is modified and the patient is currently on a combination of IV Invanz and vancomycin. Pressor requirements have improved since yesterday and the patient is currently on norepinephrine running at 0.04 mcg/kg/min and the patient is on a vasopressin physiologic dose. IV fluids are KVO. He is on vital high-protein at rate of 35 cc an hour. WBC count is 11 with a hemoglobin of 8.4 and a platelet count of 164. Sodium is at 128, BUN is 63 with a creatinine of 3.58. Potassium levels of 4.2. Sputum samples were obtained yesterday and results are still pending for now. Meanwhile, the patient will be kept on the same antibiotic coverage. Remains on Levemir insulin and the patient is on 20 units twice daily and NovoLog sliding scale coverage. On 09/13/2024, the patient's condition is essentially unchanged. The patient remains sedated and the patient remains on propofol which is running at 50 mcg/kg/min. Remains on the mechanical ventilator, this morning is on assist- control rate of 20, tidal volume of 450, FiO2 55% with a PEEP of 12. Most recent blood gas from this morning showed a pH of 7.47 with a pCO2 of 37 and pO2 of 97. The patient has no major respiratory secretions. The sputum sample that was collected earlier was negative. The chest x-ray findings are essentially unchanged and the patient continues to have stable bibasilar atelectatic changes/limited consolidation. In terms of antibiotic coverage, the patient is currently on a combination of Invanz and vancomycin. He is off norepinephrine. Vasopressin is running at physiologic dose of 0.03 units/min. He is having limited diarrhea. He is on vital high-protein at rate of 35 cc an hour. In terms of his blood work, the white cell count is at 9.9 with a hemoglobin 7.3 and a platelet count of 184. BUN is 52 with a creatinine of 2.8 and a sodium levels at 128 and a potassium level is at 4. Vancomycin trough level was 15. On 09/14/2024, the patient is being seen for a follow-up. The patient is off sedation since yesterday. He is not following commands. Not opening his eyes. Only grimaces to deep painful stimulation. Will continue monitoring his mental status. He remains on mechanical ventilator, assist-control mode rate of 20, tidal volume of 450, FiO2 40% with a PEEP of 10. The blood gas showed a pH of 7.49 with a pCO2 of 38 and a pO2 of 78. He remains on norepinephrine at a dose of 0.02 mcg/kg/min. Underwent hemodialysis yesterday with a total of 1.5 L of ultrafiltration. Continues to have episodes of fever with a Tmax of 102. Remains on a combination of IV Invanz and vancomycin. The patient is receiving enteral feeding for nutritional support. He remains on vital high-protein at rate of 30 cc an hour. LFTs are normal. Nevertheless, the bilirubin is quite elevated and there has been ongoing elevation in bilirubin level which is currently up to 6.8. AST 77, ALT is 39. CAT scan of the abdomen and pelvis sh owed gallstones. No evidence of biliary dilatation or intrahepatic ductal dilatation. The rest of the blood work from today shows a WC of 10.2, hemoglobin 7.9 and platelet count of 232. Sodium is at 128, BUN is 48 with a creatinine of 2.6. On 09/15/2024, the patient is still off sedation and the patient has been off sedation for the past 24 hours. Slightly more arousable on today's evaluation. He tries to move upon tactile stimulation. Does not respond to any verbal commands. He remains intubated on the mechanical ventilator. He remains on assist-control mode rate of 20, tidal volume of 450, FiO2 40% with a PEEP of 5. Blood gas showed a pH of 7.47 with a pCO2 of 40 and pO2 128. Chest x-ray findings are unchanged. He underwent hemodialysis yesterday another session of hemodialysis to be done today. Remains on norepinephrine running at 0.07 mcg/kg/min. The patient is also on vital high-protein at rate of 75 cc an hour. Bilirubin remains elevated. Ultrasound abdomen showed evidence of chronic liver disease possibly cirrhosis. There is also cholelithiasis without evidence of any cholecystitis. There is also moderate hepatomegaly. The bilirubin from today is at 7.1. LFTs remain elevated and the patient has a cholestatic picture. Sodium is at 130 with a potassium of 4 and a chloride of 95 and a serum bicarb is 27. White second 11.5 with hemoglobin 7.4. Ammonia levels are nonelevated. The patient is currently afebrile although he did have a low-grade temperature of 100.3 overnight. On 09/16/2024, neurologically, the patient remains unchanged. Has been off sedation for the past 3 days. He does react to repeated stimulation and tactile stimulation and painful stimulation. Nevertheless, he does not open his eyes spontaneously. Does not follow commands yet. He is afebrile. Remains on a mechanical ventilator assist-control mode with rate of 20, tidal volume of 400, FiO2 of 40% with a PEEP of 8. pH is 7.43 with a pCO2 of 41 and pO2 of 110. [address] x-ray findings are stable. Remains on low-dose norepinephrine 0.04 mcg/kg/min. Hemodialysis was performed yesterday with a total of 1.5 L of ultrafiltration. He is on vital high-protein at rate of 55 cc an hour. The white cell count is at 10 with a hemoglobin 7.5 and platelet count of 342. S odium is 129, BUN is 51 with a creatinine of 2.3 and a potassium level is at 4.1. Remains on broad-spectrum antibiotics. Remains on vancomycin and IV Invanz. Remains quite jaundiced. Awaiting follow-up liver function test. Patient was seen today on , remains in the ICU, intubated and mec hanically ventilated. He is on assist-control rate of 20 tidal volume 450 FiO2 40% and PEEP of 6, ABG showed a pO2 of 124 pCO2 4 0 pH 7.41 hence FiO2 was cut down to 35% patient is undergoing hemodialysis this morning, and the plan is to remove 2 L of fluids. He is on norepinephrine at 0.02 mcg/kg/min, vital HP at 55/55 patient has poor urine output, remains on cefepime for his positive urine and blood cultures. Patient is opens eyes but does not follow any instructions. CODE STATUS has been changed to DNR globin today is 6.9, will hold on blood transfusion, may transfuse in the next 24 hours if we notice a further drop in hemoglobin. WBC count is 9.8 hemoglobin 6.9 electrolytes are normal BUN is 17 creatinine 3.53 chest x-ray is showing ongoing interstitial infiltrates/interstitial edema right more so than left. Patient was reevaluated today on 09/18/2024, remains in the ICU intubated and mechanically ventilated, on assist-control rate of 20 tidal volume 450 FiO2 35% PEEP of 6 patient is undergoing hemodialysis again today, remains on antibiotics/cefepime for positive blood and urine cultures. ABG today showed a pO2 of 92 pCO2 40 pH of 7.43 hence no changes were made in his vent settings. Clinically the patient remains off sedation, opens eyes but does not follow any instructions does not track, does not follow, does not follow any instructions. Today the patient was placed on IMV of 8 pressure support of 14 and CPAP, seems to be tolerating that mode of mechanical ventilation well, and the plan is to taper down IMV mode until we get him on pressure support and CPAP. However I discussed his condition with his sister who is his legal guardian, and family seems to be tempted to consider comfort care measures in the next 24 to 48 hours. Cussed the option of continuing the same treatment for now and possibly consider a trach, definitely no trach per family wishes BBC count is 8.7 hemoglobin is 7, Basic metabolic profile is normal except for sodium of 129 BUN is 54 creatinine 2.69 Objective - Vital Signs Vital signs: Vital Signs Temp 99.3 F 09/18/24 08:00 Pulse 78 09/18/24 10:45 Resp 16 09/18/24 10:45 BP 108/64 09/18/24 10:15 Pulse Ox 100 09/18/24 10:45 FiO2 35 09/18/24 08:14 Intake & Output 09/17/24 09/18/24 09/18/24 18:59 06:59 18:59 Intake Total 1283.949 994.055 291.553 Output Total 4405 15 0 Balance -3121.051 979.055 291.553 Weight 89.9 kg 89.9 kg Intake: IV 192 192 64 LR 120 120 40 a line + CVP 72 72 24 Intake, IV Titration 51.949 52.055 7.553 Amount Norepinephrine 8 mg In 51.949 52.055 7.553 Sodium Chloride 0.9% 250 ml @ 0.03 MCG/KG/MIN 4. 737 mls/hr IV .Q24H [facility] Rx#:[id number] Tube Feeding 550 660 220 Hemodialysis 400 Other 90 90 Output: Urine 5 15 0 Hemodialysis 2400 Hemodialysis Net Amount 2000 Other: Voiding Method Indwelling Catheter Indwelling Catheter # Bowel Movements 1 ABP, PAP, CO, CI - Last Documented Arterial Blood Pressure 146/53 - Exam GENERAL EXAM: Revealed 64-year-old white male intubated mechanically ventilated call opens eyes to verbal stimuli but does not follow any instructions HEAD: Normocephalic. EYES: Normal reaction of pupils, equal size. NOSE: Clear with pink turbinates. THROAT: Oral endotracheal and gastric tube secured in place. No erythema or exudates. NECK: No neck masses no JVD no stridor CHEST: No chest wall deformity. LUNGS: Minimal crackles and rhonchi at the bases CVS: Normal S1-S2, no S3 gallop, no murmur ABDOMEN: No hepatosplenomegaly, normal bowel sounds, no guarding or rigidity. SKIN: No rashes CENTRAL NERVOUS SYSTEM: Opens eyes, does not follow any instructions EXTREMITIES: There is 1+ peripheral edema. No clubbing, no cyanosis. Peripheral pulses are intact. - Labs CBC & Chem 7: 09/18/24 04:01 09/18/24 04:01 Labs: Abnormal Lab Results - Last 24 Hours (Table) 09/17/24 09/17/24 09/17/24 Range/Units 06:05 11:51 17:08 RBC (4.30-5.90) m/uL Hgb (13.0-17.5) gm/dL Hct (39.0-53.0) % RDW (11.5-15.5) % ABG HCO3 (21-25) mmol/L ABG Total CO2 (19-24) mmol/L ABG O2 Saturation (94-97) % Hemoglobin (13.0-17.5) gm/dL Sodium (137-145) mmol/L BUN (9-20) mg/dL Creatinine (0.66-1.25) mg/dL Glucose (74-99) mg/dL POC Glucose (mg/dL) 121 H 160 H (70-110) mg/dL Calcium (8.4-10.2) mg/dL Total Bilirubin (0.2-1.3) mg/dL AST (17-59) U/L ALT (4-49) U/L Alkaline Phosphatase (38-126) U/L Total Protein (6.3-8.2) g/dL Albumin (3.5-5.0) g/dL Vitamin B12 1077.0 H (200.0-944.0) pg/mL 09/17/24 09/18/24 09/18/24 Range/Units 23:15 04:01 04:01 RBC 2.41 L (4.30-5.90) m/uL Hgb 7.0 L (13.0-17.5) gm/dL Hct 22.1 L (39.0-53.0) % RDW 16.5 H (11.5-15.5) % ABG HCO3 (21-25) mmol/L ABG Total CO2 (19-24) mmol/L ABG O2 Saturation (94-97) % Hemoglobin (13.0-17.5) gm/dL Sodium 129 L (137-145) mmol/L BUN 54 H (9-20) mg/dL Creatinine 2.69 H (0.66-1.25) mg/dL Glucose 218 H (74-99) mg/dL POC Glucose (mg/dL) 197 H (70-110) mg/dL Calcium 6.8 L (8.4-10.2) mg/dL Total Bilirubin 2.8 H (0.2-1.3) mg/dL AST 66 H (17-59) U/L ALT 64 H (4-49) U/L Alkaline Phosphatase 230 H (38-126) U/L Total Protein 5.0 L (6.3-8.2) g/dL Albumin 1.9 L (3.5-5.0) g/dL Vitamin B12 (200.0-944.0) pg/mL 09/18/24 09/18/24 Range/Units 05:41 05:58 RBC (4.30-5.90) m/uL Hgb (13.0-17.5) gm/dL Hct (39.0-53.0) % RDW (11.5-15.5) % ABG HCO3 26 H (21-25) mmol/L ABG Total CO2 28 H (19-24) mmol/L ABG O2 Saturation 97.9 H (94-97) % Hemoglobin 7.3 L (13.0-17.5) gm/dL Sodium (137-145) mmol/L BUN (9-20) mg/dL Creatinine (0.66-1.25) mg/dL Glucose (74-99) mg/dL POC Glucose (mg/dL) 243 H (70-110) mg/dL Calcium (8.4-10.2) mg/dL Total Bilirubin (0.2-1.3) mg/dL AST (17-59) U/L ALT (4-49) U/L Alkaline Phosphatase (38-126) U/L Total Protein (6.3-8.2) g/dL Albumin (3.5-5.0) g/dL Vitamin B12 (200.0-944.0) pg/mL Microbiology - Last 24 Hours (Table) 09/14/24 15:40 Blood Culture - Preliminary Blood 09/12/24 18:57 Blood Culture - Final Blood Assessment and Plan Assessment: Impression Acute hypoxic respiratory failure, requiring mechanical ventilation and intubation on 09/05/24. Respiratory failure is multifactorial. The patient presented with significant metabolic derangements, acute on top of chronic renal failure, sepsis and decompensated heart failure. Remains intubated urine cultures are positive for Enterobacter cloacae, blood cultures are positive for Enterobacter cloacae and Serratia marcescens Acute rhabdomyolysis, resolved, and the CPK levels have been downtrending Acute on top of chronic kidney disease. T Systolic heart failure with an ejection fraction of 30% Sepsis, secondary to urinary tract infection. Altered mentation, secondary to acute metabolic encephalopathy Hypertension Mechanical fall, is on home 2 weeks prior Hyperkalemia, resolved History of hypertension Hyperlipidemia diabetes mellitus type 2 Right kidney mass, post cryoablation at [facility] (renal cell ca) Plan: Continue ventilatory support, patient will be given a trial of pressure support CPAP and if not tolerated will use pressure support and IMV mode of mechanical ventilation with a backup rate of 8 since the patient seems to have episodes of apnea. Continue hemodynamic support Continue antibiotics patient is receiving cefepime Continue patient off sedation hoping his mental status will gradually improve Continue hemodialysis Continue Levemir insulin 20 units twice daily along with a sliding scale coverage Continue bronchodilators Heparin for DVT prophylaxis Continue nutritional support/enteral feeding Keep patient off sedation for now Family/sister updated on his condition and the send family seems to be inclined to consider comfort care measures in the next 24 to 48 hours. Patient is critically ill Critical care time is over 30 minutes Time with Patient: Greater than 30
[2024-09-18 11:58] LABS: Glucose,Whole Blood 189 mg/dL (70-110)
[2024-09-18 17:55] LABS: Glucose,Whole Blood 181 mg/dL (70-110)
--- NOTE | 2024-09-18 20:34 | PN ---
PROGRESS NOTE DATE OF SERVICE: 09/18/2024 SUBJECTIVE: This is a 64-year-old gentleman who was admitted with Enterobacter cloacae sepsis, and multiple complex medical issues also. The patient is on hemodialysis as well. The family is planning a discussion with Dr. Camarillo regarding the intensity of care. PAST MEDICAL HISTORY: Reviewed. REVIEW OF SYSTEMS: Could not be taken. CURRENT MEDICATIONS: Reviewed. PHYSICAL EXAMINATION: VITAL SIGNS: Pulse is 73, blood pressure 150/61, respirations 14. CHEST: A few scattered rhonchi and crackles. ABDOMEN: Soft. NERVOUS SYSTEM: Unresponsive. LABORATORY DATA: Hemoglobin 7. Rest of the labs are noted. ASSESSMENT: 1. Enterobacter cloacae sepsis with acute urinary tract infection present on admission. 2. Acute hypoxic respiratory failure, on mechanical ventilation. 3. Acute on chronic renal failure, on hemodialysis. 4. Anemia, multifactorial. 5. Acute diabetic ketoacidosis present on admission. 6. Rhabdomyolysis, acute. 7. Diabetes mellitus, type 2. 8. Hyperlipidemia. 9. Jaundice and liver failure with liver function tests improving. 10.Bilateral pneumonia. 11.NO CODE. NO CPR. NO VENT. RECOMMENDATIONS AND DISCUSSION: Recommend to continue current management and continue symptomatic treatment. Otherwise, repeat labs. Closely follow with Dr. Camarillo. Levophed on and off because of the change in blood pressures. The patient's neurological status is not improving. Further recommendations to follow. JAYLENE / ISSACN: [id number] /
--- NOTE | 2024-09-19 00:10 | EEG ---
ELECTROENCEPHALOGRAM REPORT PREAMBLE: This is a 64-year-old male with seizure-like activity. MEDICATIONS: The patient currently on, 1. Cefepime. 2. Peridex. 3. Heparin. 4. Dilaudid. 5. Levemir. 6. Keppra. 7. Norepinephrine. 8. Zofran. 9. Propranolol. 10.Vasopressin. EEG FINDING: This is a 21-channel digital EEG recorded with video component, utilizing 10/20 international system with referential and bipolar montages. Recording starts and continues with presence of mixed frequencies of moderate amplitude 6 hertz, theta intermixed with some delta slowing in bihemispheric region. Background does not seem to be reactive to eye opening and closing. Hyperventilation and photic stimulation were not performed. Different stages of sleep were not seen. No focal or generalized epileptiform activity was seen. IMPRESSION: This is an abnormal EEG due to background slowing of [id number] degree. This is suggestive of generalized cerebral dysfunction as can be seen with toxic metabolic encephalopathy or related to diffuse structural brain abnormality. Clinical correlation is recommended. No epileptiform activity was seen. MMODL / IJN: [id number] /
[2024-09-19 00:19] LABS: Glucose,Whole Blood 188 mg/dL (70-110)
[2024-09-19 01:04] LABS: African American GFR (CKD) 30 (>60 ml/min/1.73 sqM); Anion Gap 6 mmol/L; Blood Urea Nitrogen 50 mg/dL (9-20); Carbon Dioxide 26 mmol/L (22-30); Chloride 97 mmol/L (98-107); Glucose 181 mg/dL (74-99); Non-African American GFR(CKD) 26 (>60 ml/min/1.73 sqM); Potassium 4.5 mmol/L (3.5-5.1); Sodium 129 mmol/L (137-145)
[2024-09-19 01:22] LABS: HCT 22.2 % (39.0-53.0); Hypochromasia Slight; MCH 29.2 pg (25.0-35.0); MCHC 31.7 g/dL (31.0-37.0); MCV 92.2 fL (80.0-100.0); Mean Platelet Volume 8.7; Platelet Count 474 k/uL (150-450); RDW 15.9 % (11.5-15.5)
[2024-09-19 01:47] LABS: Eosinophils # (M) 0.16 k/uL (0-0.7); Lymphocytes # (M) 1.04 k/uL (1.0-4.8); Myelocytes # (M) 0.08 k/uL (0); Myelocytes % 1 %; Neutrophils # (M) 5.92 k/uL (1.3-7.7); Neutrophils % (M) 74 %; Nucleated Red Blood Cells 0 /100 WBC (0-0); Total Cells Counted 100
[2024-09-19 04:56] LABS: ABG Base Excess 1.9 mmol/L; ABG HCO3 28 mmol/L (21-25); ABG Oxygen Saturation 98.6 % (94-97); ABG PCO2 52 mmHg (35-45); ABG PH 7.34 (7.35-7.45); ABG PO2 105 mmHg (83-108); ABG TCO2 30 mmol/L (19-24)
[2024-09-19 05:03] LABS: Allen Test Performed? no
[2024-09-19 05:40] LABS: HGB 7.1 gm/dL (13.0-17.5); Hypochromasia Slight; MCH 29.5 pg (25.0-35.0); MCV 92.1 fL (80.0-100.0); Mean Platelet Volume 8.6; Platelet Count 447 k/uL (150-450); RBC 2.39 m/uL (4.30-5.90); RDW 15.6 % (11.5-15.5); WBC 8.6 k/uL (3.8-10.6)
[2024-09-19 05:55] LABS: African American GFR (CKD) 31 (>60 ml/min/1.73 sqM); Anion Gap 7 mmol/L; Blood Urea Nitrogen 58 mg/dL (9-20); Calcium 6.9 mg/dL (8.4-10.2); Carbon Dioxide 26 mmol/L (22-30); Chloride 96 mmol/L (98-107); Glucose 172 mg/dL (74-99); Non-African American GFR(CKD) 27 (>60 ml/min/1.73 sqM); Potassium 4.7 mmol/L (3.5-5.1); Sodium 129 mmol/L (137-145)
[2024-09-19 06:04] LABS: Glucose,Whole Blood 169 mg/dL (70-110)
[2024-09-19 07:01] LABS: Eosinophils # (M) 0.34 k/uL (0-0.7); Lymphocytes # (M) 0.95 k/uL (1.0-4.8); Monocytes # (M) 0.69 k/uL (0-1.0); Neutrophils # (M) 6.62 k/uL (1.3-7.7); Neutrophils % (M) 77 %; Nucleated Red Blood Cells 0 /100 WBC (0-0); Total Cells Counted 100
--- NOTE | 2024-09-19 07:04 | XR ---
EXAMINATION TYPE: XR chest 1V portable DATE OF EXAM: 09/19/2024 COMPARISON: 09/18/2024 CLINICAL INDICATION: Male, 64 years old with history of mechanical ventilation; TECHNIQUE: Single frontal view of the chest is obtained. FINDINGS: ET tube is 3.4 cm above the nicol. There is an NG tube in stomach. There is a central venous catheter tip in the SVC/junction. There is mild pulmonary vascular congestion unchanged. There is no pleural effusion. There is no pneumothorax. IMPRESSION: 1. ET tube 3.4 cm above the nicol. NG tube within the stomach. 2. No change in the acute cardiopulmonary disease. [facility], , 09/19/2024 7:02 AM
--- NOTE | 2024-09-19 09:40 | P.PN ---
Subjective Patient is seen in follow-up for acute kidney injury on chronic kidney disease. Started on hemodialysis September 06, 2024 via right femoral catheter. Catheter was not functioning well and new catheter was placed September 11, 2024. Oliguric. Intubated. Receiving tube feeds. Tolerating dialysis well. Off vasopressors. Vital signs are stable. General: Resting in bed. HEENT: Intubated. LUNGS: Scattered rhonchi. HEART: Rate and Rhythm are regular. ABDOMEN: No distention. EXTREMITITES: 1+ edema. Scrotal edema noted. Objective - Vital Signs Vital signs: Vital Signs Temp 99.1 F 09/19/24 04:00 Pulse 80 09/19/24 08:06 Resp 13 09/19/24 07:00 BP 166/77 09/19/24 04:30 Pulse Ox 99 09/19/24 07:00 FiO2 35 09/19/24 08:07 Intake & Output 09/18/24 09/19/24 09/19/24 18:59 06:59 18:59 Intake Total 1149.731 1416.711 81 Output Total 4500 29 2 Balance -3122.709 1046.711 79 Weight 89.9 kg 88.9 kg Intake: IV 192 314.5 26 0.9% NS KVO 60 10 Cefepime 1 gm In Sodium 62.5 Chloride 0.9% 50 ml @ 12. 5 mls/hr IVPB Q12HR [facility] Rx#:[id number] LR 120 120 10 a line + CVP 72 72 6 Intake, IV Titration 25.291 11.211 Amount Norepinephrine 8 mg In 25.291 11.211 Sodium Chloride 0.9% 250 ml @ 0.03 MCG/KG/MIN 4. 737 mls/hr IV .Q24H [facility] Rx#:[id number] Tube Feeding 660 660 55 Hemodialysis 500 Other 90 Output: Urine 0 29 2 Hemodialysis 2500 Hemodialysis Net Amount 2000 Other: Voiding Method Indwelling Catheter Indwelling Catheter ABP, PAP, CO, CI - Last Documented Arterial Blood Pressure 132/49 - Labs CBC & Chem 7: 09/19/24 05:20 09/19/24 05:20 Labs: Abnormal Lab Results - Last 24 Hours (Table) 09/18/24 09/18/24 09/19/24 Range/Units 11:56 17:54 00:18 RBC (4.30-5.90) m/uL Hgb (13.0-17.5) gm/dL Hct (39.0-53.0) % RDW (11.5-15.5) % Plt Count (150-450) k/uL Lymphocytes # (Manual) (1.0-4.8) k/uL Myelocytes # (Manual) (0) k/uL ABG pH (7.35-7.45) ABG pCO2 (35-45) mmHg ABG HCO3 (21-25) mmol/L ABG Total CO2 (19-24) mmol/L ABG O2 Saturation (94-97) % Hemoglobin (13.0-17.5) gm/dL Sodium (137-145) mmol/L Chloride (98-107) mmol/L BUN (9-20) mg/dL Creatinine (0.66-1.25) mg/dL Glucose (74-99) mg/dL POC Glucose (mg/dL) 189 H 181 H 188 H (70-110) mg/dL Calcium (8.4-10.2) mg/dL 09/19/24 09/19/24 09/19/24 Range/Units 00:35 00:35 04:54 RBC 2.40 L (4.30-5.90) m/uL Hgb 7.0 L (13.0-17.5) gm/dL Hct 22.2 L (39.0-53.0) % RDW 15.9 H (11.5-15.5) % Plt Count 474 H (150-450) k/uL Lymphocytes # (Manual) (1.0-4.8) k/uL Myelocytes # (Manual) 0.08 H (0) k/uL ABG pH 7.34 L (7.35-7.45) ABG pCO2 52 H (35-45) mmHg ABG HCO3 28 H (21-25) mmol/L ABG Total CO2 30 H (19-24) mmol/L ABG O2 Saturation 98.6 H (94-97) % Hemoglobin 6.9 L* (13.0-17.5) gm/dL Sodium 129 L (137-145) mmol/L Chloride 97 L (98-107) mmol/L BUN 50 H (9-20) mg/dL Creatinine 2.49 H (0.66-1.25) mg/dL Glucose 181 H (74-99) mg/dL POC Glucose (mg/dL) (70-110) mg/dL Calcium 7.0 L (8.4-10.2) mg/dL 09/19/24 09/19/24 09/19/24 Range/Units 05:20 05:20 06:03 RBC 2.39 L (4.30-5.90) m/uL Hgb 7.1 L (13.0-17.5) gm/dL Hct 22.0 L (39.0-53.0) % RDW 15.6 H (11.5-15.5) % Plt Count (150-450) k/uL Lymphocytes # (Manual) 0.95 L (1.0-4.8) k/uL Myelocytes # (Manual) (0) k/uL ABG pH (7.35-7.45) ABG pCO2 (35-45) mmHg ABG HCO3 (21-25) mmol/L ABG Total CO2 (19-24) mmol/L ABG O2 Saturation (94-97) % Hemoglobin (13.0-17.5) gm/dL Sodium 129 L (137-145) mmol/L Chloride 96 L (98-107) mmol/L BUN 58 H (9-20) mg/dL Creatinine 2.44 H (0.66-1.25) mg/dL Glucose 172 H (74-99) mg/dL POC Glucose (mg/dL) 169 H (70-110) mg/dL Calcium 6.9 L (8.4-10.2) mg/dL Microbiology - Last 24 Hours (Table) 09/14/24 15:40 Blood Culture - Preliminary Blood 09/12/24 18:57 Blood Culture - Final Blood Assessment and Plan Plan: Assessment: 1. Acute kidney injury secondary to ATN secondary to septic shock. Oliguric. No hydronephrosis noted on imaging. Started on hemodialysis September 06, 2024 via right femoral catheter; left femoral catheter was placed September 11, 2024. 2. Chronic kidney disease stage IIIb with baseline creatinine 1.8-2 secondary to diabetic kidney disease. 3. Septic shock with blood cultures positive for Enterobacter and Serratia and urine culture positive for Enterobacter. On antibiotics. 4. Metabolic acidosis secondary to acute kidney injury. Improved. 5. Diabetes mellitus. 6. Rhabdomyolysis. CK levels trending down. CK level 680 dated September 10, 2024. 7. Acute hypoxic respiratory failure. Intubated. 8. History of right renal mass not clearly seen on ultrasound this admission. Will need to see urology outpatient. 9. Volume overload. Improving with daily ultrafiltration. 10. Hypervolemic hyponatremia. Better. 11. Anemia of chronic kidney disease. On Aranesp. Hemoglobin 7.1 today. Plan: Hemodialysis tomorrow. No response in urine output status post IV Lasix given September 11 and September 16, 2024. Maintain tube feeds. Wean FiO2. Continue to monitor renal function and urine output. Phosphorus level 4.0 dated September 12, 2024. Prognosis guarded. Depending on long-term plans, he will need permacath placed and temporary dialys is catheter removed this week. Case discussed with RN. Potential comfort measures tomorrow.
--- NOTE | 2024-09-19 09:40 | P.PN ---
Subjective Progress Note Date: 09/18/24 Patient was initially seen by Dr. Vance Leon yesterday. Please refer to his note for details. Patient is 64-year-old male, who was found down and he has multiple medical issues. Patient has sepsis, hypoglycemia. He recently had questionable seizure-like activity and Dr. Leon felt was provoked. Patient is on Keppra. EEG was completed today. No seizure-like activity has been witnessed. Patient is present is intubated. Patient is currently on norepinephrine 0.02 mcg/mg per minute. Please refer to examination below for details. Some of the other workup during this hospital visit consisted of: Patient continues to be febrile, with T-max of 101.0. Ionized calcium is 3.7. His creatinine is trending down currently is 2.69 Ammonia level is 18. His AST and ALT is trending down Urine culture is gram-negative bacilli, Enterobacter. Blood culture is positive for Serratia and Enterobacter Repeat CT of the head on 09/16/2024 is reported as no acute intracranial proc ess. Bilateral mastoid cell and middle ear effusion correlate for otomastoiditis. I personally viewed the CT and I agree there is no acute or subacute stroke. Objective - Vital Signs Vital signs: Vital Signs Temp 98.4 F 09/18/24 13:08 Pulse 96 09/18/24 15:38 Resp 8 L 09/18/24 15:15 BP 174/77 09/18/24 15:15 Pulse Ox 100 09/18/24 15:15 FiO2 35 09/18/24 15:39 Intake & Output 09/17/24 09/18/24 09/18/24 18:59 06:59 18:59 Intake Total 1283.949 974.125 7066.291 Output Total 4405 15 4500 Balance -3121.051 979.055 -3335.709 Weight 89.9 kg 89.9 kg Intake: IV 192 192 144 LR 120 120 90 a line + CVP 72 72 54 Intake, IV Titration 51.949 52.055 25.291 Amount Norepinephrine 8 mg In 51.949 52.055 25.291 Sodium Chloride 0.9% 250 ml @ 0.03 MCG/KG/MIN 4. 737 mls/hr IV .Q24H [facility] Rx#:[id number] Tube Feeding 550 660 495 Hemodialysis 400 500 Other 90 90 Output: Urine 5 15 0 Hemodialysis 2400 2500 Hemodialysis Net Amount 1999 1999 Other: Voiding Method Indwelling Catheter Indwelling Catheter # Bowel Movements 1 ABP, PAP, CO, CI - Last Documented Arterial Blood Pressure 163/55 - Exam Patient is intubated, not on sedation. Patient does open his eyes to calling his name. He moves his head and eyes to the examiner on either side. Patient's pupils are equal, round and reacting. Gaze is midline. Oculocephalics are limited. Patient does not squeeze hands, or moves his arms or legs. He does not respond to painful stimuli in the upper limbs or lower extremities. Patient does have mild to moderate peripheral edema. No obvious seizure-like activity n oted. - Labs CBC & Chem 7: 09/19/24 05:20 09/19/24 05:20 Labs: Abnormal Lab Results - Last 24 Hours (Table) 09/17/24 09/17/24 09/17/24 Range/Units 06:05 17:08 23:15 RBC (4.30-5.90) m/uL Hgb (13.0-17.5) gm/dL Hct (39.0-53.0) % RDW (11.5-15.5) % ABG HCO3 (21-25) mmol/L ABG Total CO2 (19-24) mmol/L ABG O2 Saturation (94-97) % Hemoglobin (13.0-17.5) gm/dL Sodium (137-145) mmol/L BUN (9-20) mg/dL Creatinine (0.66-1.25) mg/dL Glucose (74-99) mg/dL POC Glucose (mg/dL) 160 H 197 H (70-110) mg/dL Calcium (8.4-10.2) mg/dL Total Bilirubin (0.2-1.3) mg/dL AST (17-59) U/L ALT (4-49) U/L Alkaline Phosphatase (38-126) U/L Total Protein (6.3-8.2) g/dL Albumin (3.5-5.0) g/dL Vitamin B12 1077.0 H (200.0-944.0) pg/mL 09/18/24 09/18/24 09/18/24 Range/Units 04:01 04:01 05:41 RBC 2.41 L (4.30-5.90) m/uL Hgb 7.0 L (13.0-17.5) gm/dL Hct 22.1 L (39.0-53.0) % RDW 16.5 H (11.5-15.5) % ABG HCO3 26 H (21-25) mmol/L ABG Total CO2 28 H (19-24) mmol/L ABG O2 Saturation 97.9 H (94-97) % Hemoglobin 7.3 L (13.0-17.5) gm/dL Sodium 129 L (137-145) mmol/L BUN 54 H (9-20) mg/dL Creatinine 2.69 H (0.66-1.25) mg/dL Glucose 218 H (74-99) mg/dL POC Glucose (mg/dL) (70-110) mg/dL Calcium 6.8 L (8.4-10.2) mg/dL Total Bilirubin 2.8 H (0.2-1.3) mg/dL AST 66 H (17-59) U/L ALT 64 H (4-49) U/L Alkaline Phosphatase 230 H (38-126) U/L Total Protein 5.0 L (6.3-8.2) g/dL Albumin 1.9 L (3.5-5.0) g/dL Vitamin B12 (200.0-944.0) pg/mL 09/18/24 / Range/Units 05:58 11:56 RBC (4.30-5.90) m/uL Hgb (13.0-17.5) gm/dL Hct (39.0-53.0) % RDW (11.5-15.5) % ABG HCO3 (21-25) mmol/L ABG Total CO2 (19-24) mmol/L ABG O2 Saturation (94-97) % Hemoglobin (13.0-17.5) gm/dL Sodium (137-145) mmol/L BUN (9-20) mg/dL Creatinine (0.66-1.25) mg/dL Glucose (74-99) mg/dL POC Glucose (mg/dL) 243 H 189 H (70-110) mg/dL Calcium (8.4-10.2) mg/dL Total Bilirubin (0.2-1.3) mg/dL AST (17-59) U/L ALT (4-49) U/L Alkaline Phosphatase (38-126) U/L Total Protein (6.3-8.2) g/dL Albumin (3.5-5.0) g/dL Vitamin B12 (200.0-944.0) pg/mL Microbiology - Last 24 Hours (Table) 09/14/24 15:40 Blood Culture - Preliminary Blood 09/12/24 18:57 Blood Culture - Final Blood Assessment and Plan Assessment: This is a 64-year-old gentleman who presented emergency department on 09/04/2024 since was found down and unknown downtime and he was found last normal by his sister about 2 weeks ago prior to that. He presents with acute rhabdomyolysis and has sepsis, acute renal failure. It seems that on 09/16/2024 around 1830 patient had possible seizure-like activity noted by the nurse lasting for 1 minute with questionable postictal event for 30 minutes. The last 2 days patient has been having sugar in the 40s to 50s. Possible seizure-like activity and probably provoked due to hypoglycemia, electrolyte imbalance underlying infection. Altered mental status seems due to multifactorial, metabolic encephalopathy, septic encephalopathy, hepatic encephalopathy, . On examination patient tracks looking to the left and moves head [id number]. Hypoglycemia as low as 40s to 50s Hypocalcemia Acute rhabdomyolysis--trending down Mechanical fall at home 2 weeks prior Transaminitis Hypertension Hyperlipidemia History of renal cell cancer and patient has right kidney mass post cryoablation at [facility] Anemia trending down Sepsis and it seems the patient has urinary tract infection, pneumonia cannot rule out Otomastoiditis as per CT head imaging Acute on chronic kidney insufficiency the patient is getting dialysis--trending down Underlying diabetes mellitus Plan: Routine EEG was performed today, which is abnormal due to background slowing of moderate to severe degree. This suggested generalized cerebral dysfunction as can be seen with toxic metabolic encephalopathy or related to diffuse structural brain abnormality. Clinical correlation is recommended. No epileptiform activity was seen. Dr. Leon has recommend MRI of the brain with and without once the patient is extubated and if possible with gadolinium if kidney drastically improves. Patient is on Keppra 500 mg twice daily that was started by the ICU attending TSH 2.07, B12 1077, both normal. Recommend avoiding hypoglycemia and correct electrolyte imbalance CT head revealed no acute intracranial process. Bilateral mastoid air cell and middle ear effusions, correlate for otomastoiditis. I personally reviewed CT head and agree with the findings. Infection diseases on board and there is a concern for ?Otomastoiditis and will defer management to I.D. team. Patient currently on cefepime. Will defer the rest of the medical management the primary and other specialist.
--- NOTE | 2024-09-19 10:24 | P.PN ---
Subjective Progress Note Date: 09/19/24 Principal diagnosis: Acute hypoxic respiratory failure, acute sepsis and septic shock secondary to Serratia marcescens and Enterobacter cloacae and severe LV dysfunction Patient is a 64-year-old male with past medical history significant for diabetes mellitus, chronic kidney disease, hyperlipidemia, hypertension, among other things. Patient is currently in the intensive care unit, he is a poor historian. Unable to provide reliable history. The ER provider did not contact me. Per the ER documentation, patient was found on the ground for an unknown known amount of time, last seen well 2 weeks prior by his sister. He was found to be in acute rhabdomyolysis with acute renal failure. He was also found with elevated blood sugars. CT of the brain and C-spine without contrast showing no acute intracranial process and no acute osseous abnormalities of the C-spine. Initial labs include a CBC: WBC count 17.3, hemoglobin 14.6, hematocrit 45.1, platelets 226. CMP: Sodium 136, potassium 5.7, chloride 95, serum bicarb 14, BUN 137, creatinine 8.82, glucose 578. Lactic 1.5. Magnesium 2.7. LFTs mildly elevated. Troponin 0.043. NT proBNP 4510. EKG: normal sinus rhythm, rate 88 bpm, incomplete RBB pattern, without obvious acute ischemic changes. Urine drug screen unremarkable. Serum ETOH < 10. Currently evaluating this patient in the intensive care unit. CPK was 7555 on arrival. Did receive 1.5 L normal saline bolus in in ED and started on normal saline at 130 ml/hr. Subsequently started on sodium bicarbonate infusion 3 A in D5W at 100 mL/h. urine output is in the order of 30 to 50 cc/h. Nephrology is managing. Repeat potassium is down to 4.7. On arrival blood glucose 578, serum bicarb 12, anion gap 27, acetone positive. Patient has also been started on insulin infusion Per protocol. He did develop some respiratory distress, breathing in the high 40s. I did ask for the pateint to be placed on BiPAP with settings 10/5 and FiO2 to be titrated kushal ropriately. Chest x-ray showing cardiomegaly. There is a left midlung linear infiltrates concerning for atelectasis or early pneumonia. Patient does have bruising to his left lateral chest. It is painful to palpation without crepitus or subcutaneous emphysema. Patient was empirically started on antibiotics in the ED.Current vitals: 97.6 F, blood pressure 115/85 mmHg, heart rate 78 bpm, tachypneic breathing in the high 40s, SpO2 is 100% on BiPAP with settings 10/5 FiO2 100%. Prognosis is guarded. 09/06/24 - Patient seen at bedside this morning, remaining in the ICU, day 2 of hospitalization, admitted on 09/05/24 and in the ICU since that time. He was placed to mechanical ventilation with intubation yesterday (09/05/24). He is on assist-control with a rate of 20, volume 450, FiO2 40%, PEEP of 5. ABG this morning showed pO2 72, pCO2 34, pH 7.46, indicating respiratory alkalosis with relative hypoxemia. Initial improvement in his WBCs down to 13.6 (from 14.8) this morning, his hemoglobin decreased to 11.2. His BUN is 138, creatinine 7.61. Increase in AST, 3-4, and ALT, up to 113. Phosphorus 5.0, remaining 9, calcium 6.6, remaining well. Creatinine Kinase remains elevated, showing improvements, to 6149. His procalcitonin returned at > 100. His blood cultures were positive for Enterobacter cloacae without resistance noted, patient placed on cefepime - discontinued Rocephin and Zithromax. Patient remained Levophed at 0.09 mcg/kg/min (7.26 mcg/min) and propofol 40 mcg/kg/min. Blood pressure this morning 113/52. He will be started on vital HP 10 cc/h, with a goal being 37 cc/h. 09/07/24 - Patient seen at bedside today, remaining in the ICU, day 3 of hospitalization. Admitted on 09/05/24 and in the ICU since that time. He has been intubated on mechanical ventilation since 09/05/24. He remains on assist- control with a rate of 20, volume 450, FiO2 50% and a PEEP of 8. ABG this morning showed pO2 59, pCO2 34, pH 7.46 which indicated respiratory alkalosis with some metabolic alkalosis - this was done while the patient was on an FiO2 of 40%. At that time, patient's FiO2 was up to 50% and his PEEP was increased to 8, since that time he has been saturating well. This morning his WBCs are 9.9, hemoglobin 10.1, platelet count 76, sodium 134, BUN 88, creatinine 4.68, calcium 6.4 and ionized calcium 3.7. Most recent creatinine kinase 2760. Because of the patient's relative hypocalcemia he received 1 g of calcium gluconate. The CVP has been slightly elevated since its insertion, at the time of insertion read ~9, however when seen the patient it was reading 6 indicated the patient is likely euvolemic. Patient remains on Levophed 0.01 mcg/kg/min (8 mcg/min), and on propofol 40 mcg/kg/min and vital HP at 30 cc/h (goal of 37 cc/h). He remains on cefepime and lactated ringer 100 cc/h. His urine was positive, preliminarily, for gram-negative bacilli. Preliminary results of blood culture showed Enterobacter cloacae and Serratia marcescens. 09/08/24 - Patient seen at bedside today, remaining in the ICU, day 4 of hospitalization. Admitted on 09/05/24 and in the ICU since that time. He has been intubated and mechanically ventilated since 09/05/24. He remains on assist-control with a rate of 20, volume 450, FiO2 50% and PEEP of 8. ABG done this morning showed pO2 60, pCO2 32, pH 7.45 indicating a respiratory alkalosis with some evidence of metabolic alkalosis. Patient uneventful overnight. WBCs 10.2, hemoglobin 9.4, sodium 133, BUN 63, creatinine 3.91, calcium 6.7. Patient CVP has been elevated, most recently at 12, indicating some possible hypervolemia. Patient allan on propofol 30 mcg/kg/min, Levophed 0.23 mcg/kg/min (~19 mcg/min), and cefepime. Patient's hemodialysis yesterday, 500 cc was removed. Per the hemodialysis nurse, patient's blood pressure dropped at the start of treatment, leading to pressors being increased at that time. Urine culture now final, positive for Enterobacter cloacae. Blood culture remains preliminary at this time for Enterobacter cloacae and Serratia marcescens. The patient is seen today September 09, 2024 in follow-up in the intensive care unit. He remains intubated on the mechanical ventilator and assist-control mode at a rate of 20, tidal volume 450, FiO2 50% and a PEEP of 8. Morning blood gases revealed a PaO2 of 86, pCO2 33 and a pH of 7.45. He is currently on norepinephrine at 27 mcg/min. Vasopressin at 0.03 units/min. Propofol at 30 mcg/kg/min. Lactated Ringer's at 10 mL/h. Receiving vital HP at 37 mL/h which is goal. He remains on cefepime for Enterobacter Cloacae in the urine. Enterobacter Cloacae and Serratia marcescens in the blood. Have a Tmax last night of 103.4. Currently 99.4. White count 13.5. Hemoglobin 9.6. Platelets 119. Sodium 133. Potassium 3.9. Bicarb 21. BUN 59. Creatinine 3.35. Glucose 245. He is continued on DuoNeb and elations. Heparin for DVT prophylaxis. Remains on Levemir and Lovenox sliding scale. He is currently in a +1.8 L balance. Chest x-ray shows persistent mild to moderate central vascular congestion bilaterally. He has been receiving hemodialysis. On 09/10/2024, the patient is being seen for a follow-up. Remains intubated on the mechanical ventilator. This morning, the patient is on propofol running at 30 mcg/kg/min. He is calm and comfortable and synchronous on mechanical ventilator. He is on assist-control mode of mechanical ventilation at rate of 20, tidal volume of 450, FiO2 of 50% with a PEEP of 5. His chest x-ray from today showing pulmonary vascular congestion and possibly some small bilateral pleural effusion. ET tube is around 4 cm above the nicol. No airspace disease or any consolidations noted. The pH is at 7.39 with a pCO2 of 34 and pO2 of 62. The patient is currently on pressors and is on norepinephrine running at 0.13 mcg/kg/min and he is also on vasopressin physiologic dose regarding his underlying gram-negative sepsis. Antibiotic coverage with IV cefepime for now. Afebrile, urine output is in the order of 5 cc an hour as the patient has developed an acute on top of chronic kidney injury and the fluid balance over the past 24 hours is +2.0 L. The patient is undergoing hemodialysis for now. Hemodialysis catheter is in the right femoral vein. His last hemodialysis session was on 09/09/2024 and another session of hemodialysis is to be done today. The patient blood work from today shows a WBC count of 11.3 with a hemoglobin of 9.7 and a platelet count of 116. Sodium is at 131, bicarb is at 18, potassium is at 4.4, BUN is 81 with a creatinine of 3.8. His liver function tests have improved including a drop in the AST and ALT. Alkaline phosphatase is also down to 218. Albumin is at 1.8 with a total protein of 4.4. As stated earlier, the cultures were positive for Enterobacter in his urine and blood. The blood also showed Serratia marcescens. His echocardiogram done during this current admission shows impaired LV function with an ejection fraction of 30% and there is global decrease in the contractility probably due to his underlying sepsis. He is receiving enteral feeding for nutritional support and is currently on THP vital HP vital HP at a rate of 37 cc an hour. IVF are KVO. On 09/11/2024, the patient is being seen in follow-up in the intensive care unit. The patient remains intubated on the mechanical ventilator. This morning, the patient is on propofol running at 50 mcg/kg/min. Earlier this morning, a blood gas was done as the patient was on a assist-control mode at a rate of 20 with a tidal volume of 450 and FiO2 of 50% with a PEEP of 8. The patient was found to be hypoxic with a pH of 7.41 with a pCO2 of 34 and pO2 54. The PEEP accordingly was brought up to 12. Current pulse ox is around 92 to 93%. The patient is still having episodes of fever. Remains septic and the patient remains on pressors and the patient is currently on norepinephrine running with 0.13 mcg/kg/min and vasopressin at 0.03 units. The patient is on IV cefepime. A CAT scan of the abdomen and pelvis was done yesterday and the patient was found to have consolidation in lung bases bilaterally consistent with pneumonia. Based on that, I recommended broadening his antibiotic coverage. Noted the patient was also supposed to undergo hemodialysis yesterday. He did have a problem with his hemodialysis catheter and the dialys is was not successful. Based on that, the catheter was exchanged and the patient was given another dialysis catheter in his left femoral vein today. Hemodialysis to follow today. The patient remains on vital high-protein for enteral feeding and titrate support at rate of 48 cc an hour. Meanwhile, he is white cell count of 12.6 with a hemoglobin 8.9 and platelet count of 155. BUN is 92 with a creatinine of 4.5 and a sodium levels at 1 of 32 and a potassium level is at 4.4. Serum bicarb is 18. Calcium level is at 7.1. LFTs are within normal limits. Sputum samples were sent for culture. Antibiotic modification was done and the patient was taken off the cefepime and the patient was started on a combination of IV Invanz and Vanco mycin. The patient remains on amiodarone 200 mg p.o. twice a day. The patient is on DuoNeb nebulized treatments [id number]. He is receiving Levemir insulin 20 units twice daily and NovoLog sliding scale coverage. On 09/12/2024, the patient remains intubated on mechanical ventilator. No significant change in his condition since yesterday. Noted the patient was given a session of hemodialysis yesterday and is undergoing another session of hemodialysis this morning. The patient remains sedated on propofol. He remains on 50 mcg/kg/min and the patient will be given a sedation holiday to assess his underlying mental status. He remains on the mechanical ventilator assist- control mode with rate of 20, tidal volume of 450, FiO2 55% with a PEEP of 12. Blood gas showed a pH of 7.47 with a pCO2 of 34 and a pO2 of 81. He is still having episodes of fever with a temperature of 101.6. His antibiotics is modified and the patient is currently on a combination of IV Invanz and vancomycin. Pressor requirements have improved since yesterday and the patient is currently on norepinephrine running at 0.04 mcg/kg/min and the patient is on a vasopressin physiologic dose. IV fluids are KVO. He is on vital high-protein at rate of 35 cc an hour. WBC count is 11 with a hemoglobin of 8.4 and a platelet count of 164. Sodium is at 128, BUN is 63 with a creatinine of 3.58. Potassium levels of 4.2. Sputum samples were obtained yesterday and results are still pending for now. Meanwhile, the patient will be kept on the same antibiotic coverage. Remains on Levemir insulin and the patient is on 20 units twice daily and NovoLog sliding scale coverage. On 09/13/2024, the patient's condition is essentially unchanged. The patient remains sedated and the patient remains on propofol which is running at 50 mcg/kg/min. Remains on the mechanical ventilator, this morning is on assist- control rate of 20, tidal volume of 450, FiO2 55% with a PEEP of 12. Most recent blood gas from this morning showed a pH of 7.47 with a pCO2 of 37 and pO2 of 97. The patient has no major respiratory secretions. The sputum sample that was collected earlier was negative. The chest x-ray findings are essentially unchanged and the patient continues to have stable bibasilar atelectatic changes/limited consolidation. In terms of antibiotic coverage, the patient is currently on a combination of Invanz and vancomycin. He is off norepinephrine. Vasopressin is running at physiologic dose of 0.03 units/min. He is having limited diarrhea. He is on vital high-protein at rate of 35 cc an hour. In terms of his blood work, the white cell count is at 9.9 with a hemoglobin 7.3 and a platelet count of 184. BUN is 52 with a creatinine of 2.8 and a sodium levels at 128 and a potassium level is at 4. Vancomycin trough level was 15. On 09/14/2024, the patient is being seen for a follow-up. The patient is off sedation since yesterday. He is not following commands. Not opening his eyes. Only grimaces to deep painful stimulation. Will continue monitoring his mental status. He remains on mechanical ventilator, assist-control mode rate of 20, tidal volume of 450, FiO2 40% with a PEEP of 10. The blood gas showed a pH of 7.49 with a pCO2 of 38 and a pO2 of 78. He remains on norepinephrine at a dose of 0.02 mcg/kg/min. Underwent hemodialysis yesterday with a total of 1.5 L of ultrafiltration. Continues to have episodes of fever with a Tmax of 102. Remains on a combination of IV Invanz and vancomycin. The patient is receiving enteral feeding for nutritional support. He remains on vital high-protein at rate of 30 cc an hour. LFTs are normal. Nevertheless, the bilirubin is quite elevated and there has been ongoing elevation in bilirubin level which is currently up to 6.8. AST 77, ALT is 39. CAT scan of the abdomen and pelvis sh owed gallstones. No evidence of biliary dilatation or intrahepatic ductal dilatation. The rest of the blood work from today shows a WC of 10.2, hemoglobin 7.9 and platelet count of 232. Sodium is at 128, BUN is 48 with a creatinine of 2.6. On 09/15/2024, the patient is still off sedation and the patient has been off sedation for the past 24 hours. Slightly more arousable on today's evaluation. He tries to move upon tactile stimulation. Does not respond to any verbal commands. He remains intubated on the mechanical ventilator. He remains on assist-control mode rate of 20, tidal volume of 450, FiO2 40% with a PEEP of 5. Blood gas showed a pH of 7.47 with a pCO2 of 40 and pO2 128. Chest x-ray findings are unchanged. He underwent hemodialysis yesterday another session of hemodialysis to be done today. Remains on norepinephrine running at 0.07 mcg/kg/min. The patient is also on vital high-protein at rate of 75 cc an hour. Bilirubin remains elevated. Ultrasound abdomen showed evidence of chronic liver disease possibly cirrhosis. There is also cholelithiasis without evidence of any cholecystitis. There is also moderate hepatomegaly. The bilirubin from today is at 7.1. LFTs remain elevated and the patient has a cholestatic picture. Sodium is at 130 with a potassium of 4 and a chloride of 95 and a serum bicarb is 27. White second 11.5 with hemoglobin 7.4. Ammonia levels are nonelevated. The patient is currently afebrile although he did have a low-grade temperature of 100.3 overnight. On 09/16/2024, neurologically, the patient remains unchanged. Has been off sedation for the past 3 days. He does react to repeated stimulation and tactile stimulation and painful stimulation. Nevertheless, he does not open his eyes spontaneously. Does not follow commands yet. He is afebrile. Remains on a mechanical ventilator assist-control mode with rate of 20, tidal volume of 400, FiO2 of 40% with a PEEP of 8. pH is 7.43 with a pCO2 of 41 and pO2 of 110. [address] x-ray findings are stable. Remains on low-dose norepinephrine 0.04 mcg/kg/min. Hemodialysis was performed yesterday with a total of 1.5 L of ultrafiltration. He is on vital high-protein at rate of 55 cc an hour. The white cell count is at 10 with a hemoglobin 7.5 and platelet count of 342. S odium is 129, BUN is 51 with a creatinine of 2.3 and a potassium level is at 4.1. Remains on broad-spectrum antibiotics. Remains on vancomycin and IV Invanz. Remains quite jaundiced. Awaiting follow-up liver function test. Patient was seen today on , remains in the ICU, intubated and mec hanically ventilated. He is on assist-control rate of 20 tidal volume 450 FiO2 40% and PEEP of 6, ABG showed a pO2 of 124 pCO2 4 0 pH 7.41 hence FiO2 was cut down to 35% patient is undergoing hemodialysis this morning, and the plan is to remove 2 L of fluids. He is on norepinephrine at 0.02 mcg/kg/min, vital HP at 55/55 patient has poor urine output, remains on cefepime for his positive urine and blood cultures. Patient is opens eyes but does not follow any instructions. CODE STATUS has been changed to DNR globin today is 6.9, will hold on blood transfusion, may transfuse in the next 24 hours if we notice a further drop in hemoglobin. WBC count is 9.8 hemoglobin 6.9 electrolytes are normal BUN is 17 creatinine 3.53 chest x-ray is showing ongoing interstitial infiltrates/interstitial edema right more so than left. Patient was reevaluated today on 09/18/2024, remains in the ICU intubated and mechanically ventilated, on assist-control rate of 20 tidal volume 450 FiO2 35% PEEP of 6 patient is undergoing hemodialysis again today, remains on antibiotics/cefepime for positive blood and urine cultures. ABG today showed a pO2 of 92 pCO2 40 pH of 7.43 hence no changes were made in his vent settings. Clinically the patient remains off sedation, opens eyes but does not follow any instructions does not track, does not follow, does not follow any instructions. Today the patient was placed on IMV of 8 pressure support of 14 and CPAP, seems to be tolerating that mode of mechanical ventilation well, and the plan is to taper down IMV mode until we get him on pressure support and CPAP. However I discussed his condition with his sister who is his legal guardian, and family seems to be tempted to consider comfort care measures in the next 24 to 48 hours. Cussed the option of continuing the same treatment for now and possibly consider a trach, definitely no trach per family wishes BBC count is 8.7 hemoglobin is 7, Basic metabolic profile is normal except for sodium of 129 BUN is 54 creatinine 2.69 patient was seen today on 09/19/2024, remains in the ICU, intubated and mech anically ventilated. Patient is on IMV rate of 8 which I increased up to 10 pressure support of 14 tidal volume 450 FiO2 35% and PEEP of 6 ABG showed a pO2 of 105 pCO2 52 pH of 7.34 hence FiO2 was The same and rate increased from 8-10. Patient still requiring norepinephrine at 0.01 mcg/kg/min he is on IV fluids at KVO remains on cefepime remains on enteral feeding/nutritional support, remains on DVT and GI prophylaxis, neurologically the patient is about the same. Family is planning comfort care measures in the next 24 hours. Neurologically patient opens eyes to deep painful stimuli, does not track, does not follow, and does not seem to follow any instructions. WBC count is 8.6 hemoglobin 7.1, sodium 129 potassium 4.7 BUN is 58 creatinine 2.44 Objective - Vital Signs Vital signs: Vital Signs Temp 99.1 F 09/19/24 04:00 Pulse 80 09/19/24 08:06 Resp 13 09/19/24 07:00 BP 166/77 09/19/24 04:30 Pulse Ox 99 09/19/24 07:00 FiO2 35 09/19/24 08:07 Intake & Output 09/18/24 09/19/24 09/19/24 18:59 06:59 18:59 Intake Total 7832.075 2847.711 81 Output Total 4500 29 2 Balance -3122.709 1046.711 79 Weight 89.9 kg 88.9 kg Intake: IV 192 314.5 26 0.9% NS KVO 60 10 Cefepime 1 gm In Sodium 62.5 Chloride 0.9% 50 ml @ 12. 5 mls/hr IVPB Q12HR [facility] Rx#:[id number] LR 120 120 10 a line + CVP 72 72 6 Intake, IV Titration 25.291 11.211 Amount Norepinephrine 8 mg In 25.291 11.211 Sodium Chloride 0.9% 250 ml @ 0.03 MCG/KG/MIN 4. 737 mls/hr IV .Q24H [facility] Rx#:[id number] Tube Feeding 660 660 55 Hemodialysis 500 Other 90 Output: Urine 0 29 2 Hemodialysis 2500 Hemodialysis Net Amount 1999 Other: Voiding Method Indwelling Catheter Indwelling Catheter ABP, PAP, CO, CI - Last Documented Arterial Blood Pressure 132/49 - Exam GENERAL EXAM: Revealed 64-year-old white male intubated mechanically ventilated HEAD: Normocephalic. EYES: Normal reaction of pupils, equal size. NOSE: Clear with pink turbinates. THROAT: Oral endotracheal and gastric tube secured in place. No erythema or exudates. NECK: No neck masses no JVD no stridor CHEST: No chest wall deformity. LUNGS: Minimal crackles and rhonchi at the bases CVS: Normal S1-S2, no S3 gallop, no murmur ABDOMEN: No hepatosplenomegaly, normal bowel sounds, no guarding or rigidity. SKIN: No rashes CENTRAL NERVOUS SYSTEM: Opens eyes, does not follow any instructions EXTREMITIES: There is 1+ peripheral edema. No clubbing, no cyanosis. Peripheral pulses are intact. - Labs CBC & Chem 7: 09/19/24 05:20 09/19/24 05:20 Labs: Abnormal Lab Results - Last 24 Hours (Table) 09/18/24 09/18/24 09/19/24 Range/Units 11:56 17:54 00:18 RBC (4.30-5.90) m/uL Hgb (13.0-17.5) gm/dL Hct (39.0-53.0) % RDW (11.5-15.5) % Plt Count (150-450) k/uL Lymphocytes # (Manual) (1.0-4.8) k/uL Myelocytes # (Manual) (0) k/uL ABG pH (7.35-7.45) ABG pCO2 (35-45) mmHg ABG HCO3 (21-25) mmol/L ABG Total CO2 (19-24) mmol/L ABG O2 Saturation (94-97) % Hemoglobin (13.0-17.5) gm/dL Sodium (137-145) mmol/L Chloride (98-107) mmol/L BUN (9-20) mg/dL Creatinine (0.66-1.25) mg/dL Glucose (74-99) mg/dL POC Glucose (mg/dL) 189 H 181 H 188 H (70-110) mg/dL Calcium (8.4-10.2) mg/dL 09/19/24 09/19/24 09/19/24 Range/Units 00:35 00:35 04:54 RBC 2.40 L (4.30-5.90) m/uL Hgb 7.0 L (13.0-17.5) gm/dL Hct 22.2 L (39.0-53.0) % RDW 15.9 H (11.5-15.5) % Plt Count 474 H (150-450) k/uL Lymphocytes # (Manual) (1.0-4.8) k/uL Myelocytes # (Manual) 0.08 H (0) k/uL ABG pH 7.34 L (7.35-7.45) ABG pCO2 52 H (35-45) mmHg ABG HCO3 28 H (21-25) mmol/L ABG Total CO2 30 H (19-24) mmol/L ABG O2 Saturation 98.6 H (94-97) % Hemoglobin 6.9 L* (13.0-17.5) gm/dL Sodium 129 L (137-145) mmol/L Chloride 97 L (98-107) mmol/L BUN 50 H (9-20) mg/dL Creatinine 2.49 H (0.66-1.25) mg/dL Glucose 181 H (74-99) mg/dL POC Glucose (mg/dL) (70-110) mg/dL Calcium 7.0 L (8.4-10.2) mg/dL 09/19/24 09/19/24 09/19/24 Range/Units 05:20 05:20 06:03 RBC 2.39 L (4.30-5.90) m/uL Hgb 7.1 L (13.0-17.5) gm/dL Hct 22.0 L (39.0-53.0) % RDW 15.6 H (11.5-15.5) % Plt Count (150-450) k/uL Lymphocytes # (Manual) 0.95 L (1.0-4.8) k/uL Myelocytes # (Manual) (0) k/uL ABG pH (7.35-7.45) ABG pCO2 (35-45) mmHg ABG HCO3 (21-25) mmol/L ABG Total CO2 (19-24) mmol/L ABG O2 Saturation (94-97) % Hemoglobin (13.0-17.5) gm/dL Sodium 129 L (137-145) mmol/L Chloride 96 L (98-107) mmol/L BUN 58 H (9-20) mg/dL Creatinine 2.44 H (0.66-1.25) mg/dL Glucose 172 H (74-99) mg/dL POC Glucose (mg/dL) 169 H (70-110) mg/dL Calcium 6.9 L (8.4-10.2) mg/dL Assessment and Plan Assessment: Impression Acute hypoxic respiratory failure, requiring mechanical ventilation and intubation on 09/05/24. Respiratory failure is multifactorial. The patient presented with significant metabolic derangements, acute on top of chronic renal failure, sepsis and decompensated heart failure. Remains intubated urine cult ures are positive for Enterobacter cloacae, blood cultures are positive for Enterobacter cloacae and Serratia marcescens Acute rhabdomyolysis, resolved Acute on top of chronic kidney disease. Acute systolic heart failure with an ejection fraction of 30% Sepsis, secondary to urinary tract infection. Altered mentation, secondary to acute metabolic encephalopathy, not showing any improvement in spite of sedation and narcotics been on hold for quite some time now. Hypertension Mechanical fall, is on home 2 weeks prior Hyperkalemia, resolved History of hypertension Hyperlipidemia diabetes mellitus type 2 Right kidney mass, post cryoablation at [facility] (renal cell ca) Plan: Continue ventilatory support, IMV/pressure support mode of mechanical ventilation Continue hemodynamic support, intermittently on norepinephrine Continue antibiotics/cefepime Continue to hold narcotics and sedatives Continue hemodialysis Continue Levemir insulin 20 units twice daily along with a sliding scale coverage Continue bronchodilators Heparin for DVT prophylaxis Continue nutritional support/enteral feeding Continues to have extremely poor prognosis and family is aware of this, no plans for tracheostomy, plans for terminal weaning in the next 24 hours. Patient is critically ill Critical care time is over 30 minutes Time with Patient: Greater than 30
[2024-09-19 12:34] LABS: Glucose,Whole Blood 172 mg/dL (70-110)
--- NOTE | 2024-09-19 14:27 | P.PN ---
Subjective Progress Note Date: 09/18/24 Principal diagnosis: Reason for follow-up is sepsis and bacteremia Patient is a 64-year-old male with a past medical history significant for diabetes mellitus hyperlipidemia, chronic kidney disease patient has been brought to the hospital after the patient was found on the ground for unknown amount of time patient was noted to be septic requiring admission to the ICU on the ventilator subsequent did have a positive blood culture with Enterobacter. On today's evaluation that is 09/18/2024, Patient did spike a fever of 101 F last night, patient iss afebrile this morning patient remains to be debated on the vent FiO2 is currently stable no significant purulent secretion bradycardia diarrhea or any other changes reported by nursing staff. Patient white count is 8.0, creatinine is 2.49 Objective - Vital Signs Vital signs: Vital Signs Temp 98.4 F 09/18/24 13:08 Pulse 96 09/18/24 15:38 Resp 8 L 09/18/24 15:15 BP 174/77 09/18/24 15:15 Pulse Ox 100 09/18/24 15:15 FiO2 35 09/18/24 11:42 Intake & Output 09/17/24 09/18/24 09/18/24 18:59 06:59 18:59 Intake Total 1283.949 802.719 5671.553 Output Total 4405 15 4500 Balance -3121.051 979.055 -3353.447 Weight 89.9 kg 89.9 kg Intake: IV 192 192 144 LR 120 120 90 a line + CVP 72 72 54 Intake, IV Titration 51.949 52.055 7.553 Amount Norepinephrine 8 mg In 51.949 52.055 7.553 Sodium Chloride 0.9% 250 ml @ 0.03 MCG/KG/MIN 4. 737 mls/hr IV .Q24H [facility] Rx#:[id number] Tube Feeding 550 660 495 Hemodialysis 400 500 Other 90 90 Output: Urine 5 15 0 Hemodialysis 2400 2500 Hemodialysis Net Amount 1999 1999 Other: Voiding Method Indwelling Catheter Indwelling Catheter # Bowel Movements 1 ABP, PAP, CO, CI - Last Documented Arterial Blood Pressure 163/55 - Exam GENERAL DESCRIPTION: An elderly male intubated on the vent RESPIRATORY SYSTEM: Unlabored breathing , decreased breath sounds at bases HEART: S1 S2 regular rate and rhythm , ABDOMEN: Soft , no tenderness EXTREMITIES: No edema feet - Labs CBC & Chem 7: 09/19/24 05:20 09/19/24 05:20 Labs: Abnormal Lab Results - Last 24 Hours (Table) 09/17/24 09/17/24 09/17/24 Range/Units 06:05 17:08 23:15 RBC (4.30-5.90) m/uL Hgb (13.0-17.5) gm/dL Hct (39.0-53.0) % RDW (11.5-15.5) % ABG HCO3 (21-25) mmol/L ABG Total CO2 (19-24) mmol/L ABG O2 Saturation (94-97) % Hemoglobin (13.0-17.5) gm/dL Sodium (137-145) mmol/L BUN (9-20) mg/dL Creatinine (0.66-1.25) mg/dL Glucose (74-99) mg/dL POC Glucose (mg/dL) 160 H 197 H (70-110) mg/dL Calcium (8.4-10.2) mg/dL Total Bilirubin (0.2-1.3) mg/dL AST (17-59) U/L ALT (4-49) U/L Alkaline Phosphatase (38-126) U/L Total Protein (6.3-8.2) g/dL Albumin (3.5-5.0) g/dL Vitamin B12 1077.0 H (200.0-944.0) pg/mL 09/18/24 09/18/24 09/18/24 Range/Units 04:01 04:01 05:41 RBC 2.41 L (4.30-5.90) m/uL Hgb 7.0 L (13.0-17.5) gm/dL Hct 22.1 L (39.0-53.0) % RDW 16.5 H (11.5-15.5) % ABG HCO3 26 H (21-25) mmol/L ABG Total CO2 28 H (19-24) mmol/L ABG O2 Saturation 97.9 H (94-97) % Hemoglobin 7.3 L (13.0-17.5) gm/dL Sodium 129 L (137-145) mmol/L BUN 54 H (9-20) mg/dL Creatinine 2.69 H (0.66-1.25) mg/dL Glucose 218 H (74-99) mg/dL POC Glucose (mg/dL) (70-110) mg/dL Calcium 6.8 L (8.4-10.2) mg/dL Total Bilirubin 2.8 H (0.2-1.3) mg/dL AST 66 H (17-59) U/L ALT 64 H (4-49) U/L Alkaline Phosphatase 230 H (38-126) U/L Total Protein 5.0 L (6.3-8.2) g/dL Albumin 1.9 L (3.5-5.0) g/dL Vitamin B12 (200.0-944.0) pg/mL 09/18/24 09/18/24 Range/Units 05:58 11:56 RBC (4.30-5.90) m/uL Hgb (13.0-17.5) gm/dL Hct (39.0-53.0) % RDW (11.5-15.5) % ABG HCO3 (21-25) mmol/L ABG Total CO2 (19-24) mmol/L ABG O2 Saturation (94-97) % Hemoglobin (13.0-17.5) gm/dL Sodium (137-145) mmol/L BUN (9-20) mg/dL Creatinine (0.66-1.25) mg/dL Glucose (74-99) mg/dL POC Glucose (mg/dL) 243 H 189 H (70-110) mg/dL Calcium (8.4-10.2) mg/dL Total Bilirubin (0.2-1.3) mg/dL AST (17-59) U/L ALT (4-49) U/L Alkaline Phosphatase (38-126) U/L Total Protein (6.3-8.2) g/dL Albumin (3.5-5.0) g/dL Vitamin B12 (200.0-944.0) pg/mL Microbiology - Last 24 Hours (Table) 09/14/24 15:40 Blood Culture - Preliminary Blood 09/12/24 18:57 Blood Culture - Final Blood Assessment and Plan (1) Sepsis Current Visit: Yes Status: Acute Code(s): A41.9 - SEPSIS, UNSPECIFIED ORGANISM SNOMED Code(s): 10885293 (2) Pneumonia Current Visit: Yes Status: Acute Code(s): J18.9 - PNEUMONIA, UNSPECIFIED ORGANISM SNOMED Code(s): 761550575 (3) UTI (urinary tract infection) Current Visit: No Status: Acute Code(s): N39.0 - URINARY TRACT INFECTION, SITE NOT SPECIFIED SNOMED Code(s): 71558169 Plan: 1patient with sepsis in this patient who did have a fever hyortension requiring pressor support maintaining criteria for SIRS source is likely UTI pneumonia not entirely excluded 2-blood culture came back positive with Enterobacter and Serratia, urine is growing Enterobacter 3-patient CT abdominal pelvis did not show any intra-abdominal pelvic abscess concerning for bibasilar pneumonia and cholelithiasis 4patient did have some improvement in his fever pattern and his white count is normalized, repeat culture have been negative 5- patient currently be treated with cefepime to cover for the Enterobacter and Serratia that was grown on the initial culture and monitor clinical course closely Dictation was produced using [employer] dictation software. please excuse any grammatical, word or spelling errors. Time with Patient: Less than 30
--- NOTE | 2024-09-19 14:28 | P.PN ---
Subjective Progress Note Date: 09/19/24 Principal diagnosis: Reason for follow-up is sepsis and bacteremia Patient is a 64-year-old male with a past medical history significant for diabetes mellitus hyperlipidemia, chronic kidney disease patient has been brought to the hospital after the patient was found on the ground for unknown amount of time patient was noted to be septic requiring admission to the ICU on the ventilator subsequent did have a positive blood culture with Enterobacter. On today's evaluation that is 09/19/2024,the patient did have a low-grade fever 100.1 F this morning the patient is intubated on the vent FiO2 is currently stable at 35% no significant purulent secretion through the ET diarrhea any change reported by the nursing staff. Patient white count is 8.6, creatinine is 2.44 Objective - Vital Signs Vital signs: Vital Signs Temp 100.1 F H 09/19/24 08:00 Pulse 93 09/19/24 13:30 Resp 15 09/19/24 13:30 BP 146/64 09/19/24 13:00 Pulse Ox 97 09/19/24 13:30 FiO2 35 09/19/24 12:00 Intake & Output 09/18/24 09/19/24 09/19/24 18:59 06:59 18:59 Intake Total 4556.810 7728.711 677 Output Total 4500 29 12 Balance -3122.709 1046.711 665 Weight 89.9 kg 88.9 kg Intake: IV 192 314.5 232 0.9% NS KVO 60 70 Cefepime 1 gm In Sodium 62.5 50 Chloride 0.9% 50 ml @ 12. 5 mls/hr IVPB Q12HR [facility] Rx#:[id number] LR 120 120 70 a line + CVP 72 72 42 Intake, IV Titration 25.291 11.211 Amount Norepinephrine 8 mg In 25.291 11.211 Sodium Chloride 0.9% 250 ml @ 0.03 MCG/KG/MIN 4. 737 mls/hr IV .Q24H [facility] Rx#:[id number] Tube Feeding 660 660 385 Hemodialysis 500 Other 90 60 Output: Urine 0 29 12 Hemodialysis 2500 Hemodialysis Net Amount 1999 Other: Voiding Method Indwelling Catheter Indwelling Catheter Indwelling Catheter ABP, PAP, CO, CI - Last Documented Arterial Blood Pressure 146/59 - Exam GENERAL DESCRIPTION: An elderly male intubated on the vent RESPIRATORY SYSTEM: Unlabored breathing , decreased breath sounds at bases HEART: S1 S2 regular rate and rhythm , ABDOMEN: Soft , no tenderness EXTREMITIES: No edema feet - Labs CBC & Chem 7: 09/19/24 05:20 09/19/24 05:20 Labs: Abnormal Lab Results - Last 24 Hours (Table) 09/18/24 09/19/24 09/19/24 Range/Units 17:54 00:18 00:35 RBC 2.40 L (4.30-5.90) m/uL Hgb 7.0 L (13.0-17.5) gm/dL Hct 22.2 L (39.0-53.0) % RDW 15.9 H (11.5-15.5) % Plt Count 474 H (150-450) k/uL Lymphocytes # (Manual) (1.0-4.8) k/uL Myelocytes # (Manual) 0.08 H (0) k/uL ABG pH (7.35-7.45) ABG pCO2 (35-45) mmHg ABG HCO3 (21-25) mmol/L ABG Total CO2 (19-24) mmol/L ABG O2 Saturation (94-97) % Hemoglobin (13.0-17.5) gm/dL Sodium (137-145) mmol/L Chloride (98-107) mmol/L BUN (9-20) mg/dL Creatinine (0.66-1.25) mg/dL Glucose (74-99) mg/dL POC Glucose (mg/dL) 181 H 188 H (70-110) mg/dL Calcium (8.4-10.2) mg/dL 09/19/24 09/19/24 09/19/24 Range/Units 00:35 04:54 05:20 RBC 2.39 L (4.30-5.90) m/uL Hgb 7.1 L (13.0-17.5) gm/dL Hct 22.0 L (39.0-53.0) % RDW 15.6 H (11.5-15.5) % Plt Count (150-450) k/uL Lymphocytes # (Manual) 0.95 L (1.0-4.8) k/uL Myelocytes # (Manual) (0) k/uL ABG pH 7.34 L (7.35-7.45) ABG pCO2 52 H (35-45) mmHg ABG HCO3 28 H (21-25) mmol/L ABG Total CO2 30 H (19-24) mmol/L ABG O2 Saturation 98.6 H (94-97) % Hemoglobin 6.9 L* (13.0-17.5) gm/dL Sodium 129 L (137-145) mmol/L Chloride 97 L (98-107) mmol/L BUN 50 H (9-20) mg/dL Creatinine 2.49 H (0.66-1.25) mg/dL Glucose 181 H (74-99) mg/dL POC Glucose (mg/dL) (70-110) mg/dL Calcium 7.0 L (8.4-10.2) mg/dL 09/19/24 09/19/24 09/19/24 Range/Units 05:20 06:03 12:32 RBC (4.30-5.90) m/uL Hgb (13.0-17.5) gm/dL Hct (39.0-53.0) % RDW (11.5-15.5) % Plt Count (150-450) k/uL Lymphocytes # (Manual) (1.0-4.8) k/uL Myelocytes # (Manual) (0) k/uL ABG pH (7.35-7.45) ABG pCO2 (35-45) mmHg ABG HCO3 (21-25) mmol/L ABG Total CO2 (19-24) mmol/L ABG O2 Saturation (94-97) % Hemoglobin (13.0-17.5) gm/dL Sodium 129 L (137-145) mmol/L Chloride 96 L (98-107) mmol/L BUN 58 H (9-20) mg/dL Creatinine 2.44 H (0.66-1.25) mg/dL Glucose 172 H (74-99) mg/dL POC Glucose (mg/dL) 169 H 172 H (70-110) mg/dL Calcium 6.9 L (8.4-10.2) mg/dL Assessment and Plan (1) Sepsis Current Visit: Yes Status: Acute Code(s): A41.9 - SEPSIS, UNSPECIFIED ORGANISM SNOMED Code(s): 93675168 (2) Pneumonia Current Visit: Yes Status: Acute Code(s): J18.9 - PNEUMONIA, UNSPECIFIED ORGANISM SNOMED Code(s): 037331053 (3) UTI (urinary tract infection) Current Visit: No Status: Acute Code(s): N39.0 - URINARY TRACT INFECTION, SITE NOT SPECIFIED SNOMED Code(s): 06174116 Plan: 1patient with sepsis in this patient who did have a fever hyortension requiring pressor support maintaining criteria for SIRS source is likely UTI pneumonia not entirely excluded 2-blood culture came back positive with Enterobacter and Serratia, urine is growing Enterobacter 3-patient CT abdominal pelvis did not show any intra-abdominal pelvic abscess concerning for bibasilar pneumonia and cholelithiasis 4patient did have some improvement in his fever pattern and his white count is normalized, repeat culture have been negative 5- patient is currently covered with cefepime for the Enterobacter and Serratia bacteremia, blood culture repeat has been negative family is planning for possible hospice-hence will hold on adding any further workup at this point Dictation was produced using [employer] dictation software. please excuse any grammatical, word or spelling errors. Time with Patient: Less than 30
[2024-09-19 17:25] LABS: Glucose,Whole Blood 178 mg/dL (70-110)
--- NOTE | 2024-09-19 18:43 | PN ---
PROGRESS NOTE DATE OF SERVICE: 09/19/2024 This 64-year-old gentleman was admitted with Enterobacter cloacae sepsis, also had acute hypoxic respiratory failure. The patient is on mechanical ventilation. The family is considering the possibility of comfort measures at this time. PAST MEDICAL HISTORY: Reviewed. REVIEW OF SYSTEMS: Could not be taken. CURRENT MEDICATIONS: Reviewed. PHYSICAL EXAMINATION: VITAL SIGNS: Pulse 92, blood pressure 133/89, respiration 20. CHEST: A few scattered rhonchi. ABDOMEN: Soft. NERVOUS SYSTEM: Nonfocal. LABORATORY DATA: Hemoglobin 7.1. Rest of the labs are noted. ASSESSMENT: 1. Enterobacter cloacae sepsis with acute urinary tract infection, present on admission. 2. Acute hypoxic respiratory failure, on mechanical ventilation. 3. Acute on chronic renal failure, on hemodialysis. 4. Anemia, multifactorial. 5. Acute diabetic ketoacidosis, present on admission. 6. Acute rhabdomyolysis. 7. Diabetes mellitus, type 2. 8. Hyperlipidemia. 9. Jaundice with liver failure. 10.Bilateral pneumonia. 11.No code. No CPR. No vent. RECOMMENDATION: I recommend to continue current management and symptomatic treatment. Otherwise, closely follow with Critical Care/Pulmonary. As mentioned earlier, the patient's prognosis is extremely guarded. Further recommendations to follow. MMODL / IJN: [id number] /
[2024-09-19 23:41] LABS: Glucose,Whole Blood 204 mg/dL (70-110)
[2024-09-20 03:09] LABS: HGB 7.1 gm/dL (13.0-17.5); Hypochromasia Slight; MCH 29.5 pg (25.0-35.0); MCHC 32.1 g/dL (31.0-37.0); Platelet Count 509 k/uL (150-450); RDW 15.7 % (11.5-15.5); WBC 9.7 k/uL (3.8-10.6)
[2024-09-20 03:19] LABS: African American GFR (CKD) 19 (>60 ml/min/1.73 sqM); Anion Gap 7 mmol/L; Blood Urea Nitrogen 79 mg/dL (9-20); Calcium 6.7 mg/dL (8.4-10.2); Carbon Dioxide 23 mmol/L (22-30); Chloride 98 mmol/L (98-107); Glucose 166 mg/dL (74-99); Non-African American GFR(CKD) 16 (>60 ml/min/1.73 sqM); Potassium 5.2 mmol/L (3.5-5.1); Sodium 128 mmol/L (137-145)
[2024-09-20 06:08] LABS: Glucose,Whole Blood 179 mg/dL (70-110)
[2024-09-20] MEDS ORDERED: LORazepam 2 MG/ML INJ IV PRN (10:04)
--- NOTE | 2024-09-20 10:30 | P.PN ---
Subjective Progress Note Date: 09/19/24 09/19/2024: Patient was seen for a follow-up. Patient appears slightly worse today, not as responsive as yesterday. Patient continues to be intubated. Not on any pressors. 09/18/2024: Patient was initially seen by Dr. Vance Leon yesterday. Please refer to his note for details. Patient is 64-year-old male, who was found down and he has multiple medical issues. Patient has sepsis, hypoglycemia. He recently had questionable seizure-like activity and Dr. Leon felt was provoked. Patient is on Keppra. EEG was completed today. No seizure-like activity has been witnessed. Patient is present is intubated. Patient is currently on norepinephrine 0.02 mcg/mg per minute. Please refer to examination below for details. Some of the other workup during this hospital visit consisted of: Patient continues to be febrile, with T-max of 101.0. Ionized calcium is 3.7. His creatinine is trending down currently is 2.69 Ammonia level is 18. His AST and ALT is trending down Urine culture is gram-negative bacilli, Enterobacter. Blood culture is positive for Serratia and Enterobacter Repeat CT of the head on 09/16/2024 is reported as no acute intracranial process. Bilateral mastoid cell and middle ear effusion correlate for otomastoiditis. I personally viewed the CT and I agree there is no acute or subacute stroke. Objective - Vital Signs Vital signs: Vital Signs Temp 99.6 F 09/20/24 08:00 Pulse 95 09/20/24 09:00 Resp 27 H 09/20/24 08:30 BP 147/67 09/20/24 06:00 Pulse Ox 97 09/20/24 09:00 FiO2 35 09/20/24 08:10 Intake & Output 09/19/24 09/20/24 09/20/24 18:59 06:59 18:59 Intake Total 1112 916.0 45 Output Total 32 40 Balance 1080 876.0 45 Weight 90.7 kg Intake: IV 362 256.0 45 0.9% NS 120 120 30 0.9% NS KVO 120 80 15 Cefepime 1 gm In Sodium 50 50.0 Chloride 0.9% 50 ml @ 12. 5 mls/hr IVPB Q12HR [facility] Rx#:[id number] a line + CVP 72 6 Tube Feeding 660 660 Other 90 Output: Urine 32 40 Other: Voiding Method Indwelling Catheter Indwelling Catheter Indwelling Catheter ABP, PAP, CO, CI - Last Documented Arterial Blood Pressure 168/62 - Exam Patient is intubated, not on sedation. Patient does open his eyes to calling his name, although less consistently as compared to yesterday. He moves his head and eyes to the examiner on either side. Patient's pupils are equal, round and reacting. Gaze is midline. Oculocephalics are inhibited. Patient does not squeeze hands, or moves his arms or legs. He does not respond to painful stimuli in the upper limbs or lower extremities. Patient does have mild to moderate peripheral edema. No obvious seizure-like activity noted. - Labs CBC & Chem 7: 09/20/24 02:30 09/20/24 02:30 Labs: Abnormal Lab Results - Last 24 Hours (Table) 09/19/24 09/19/24 09/19/24 Range/Units 12:32 17:24 23:40 RBC (4.30-5.90) m/uL Hgb (13.0-17.5) gm/dL Hct (39.0-53.0) % RDW (11.5-15.5) % Plt Count (150-450) k/uL Sodium (137-145) mmol/L Potassium (3.5-5.1) mmol/L BUN (9-20) mg/dL Creatinine (0.66-1.25) mg/dL Glucose (74-99) mg/dL POC Glucose (mg/dL) 172 H 178 H 204 H (70-110) mg/dL Calcium (8.4-10.2) mg/dL 09/20/24 09/20/24 09/20/24 Range/Units 02:30 02:30 06:08 RBC 2.40 L (4.30-5.90) m/uL Hgb 7.1 L (13.0-17.5) gm/dL Hct 22.0 L (39.0-53.0) % RDW 15.7 H (11.5-15.5) % Plt Count 509 H (150-450) k/uL Sodium 128 L (137-145) mmol/L Potassium 5.2 H (3.5-5.1) mmol/L BUN 79 H (9-20) mg/dL Creatinine 3.73 H (0.66-1.25) mg/dL Glucose 166 H (74-99) mg/dL POC Glucose (mg/dL) 179 H (70-110) mg/dL Calcium 6.7 L (8.4-10.2) mg/dL Microbiology - Last 24 Hours (Table) 09/14/24 15:40 Blood Culture - Final Blood Assessment and Plan Assessment: This is a 64-year-old gentleman who presented emergency department on 09/04/2024 since was found down and unknown downtime and he was found last normal by his sister about 2 weeks ago prior to that. He presents with acute rhabdomyolysis and has sepsis, acute renal failure. It seems that on 09/16/2024 around 1830 patient had possible seizure-like activity noted by the nurse lasting for 1 minute with questionable postictal event for 30 minutes. The last 2 days patient has been having sugar in the 40s to 50s. Possible seizure-like activity and probably provoked due to hypoglycemia, electrolyte imbalance underlying infection. Altered mental status seems due to multifactorial, metabolic encephalopathy, se ptic encephalopathy, hepatic encephalopathy, . On examination patient tracks looking to the left and moves head [id number]. Hypoglycemia as low as 40s to 50s Hypocalcemia Acute rhabdomyolysis--trending down Mechanical fall at home 2 weeks prior Transaminitis Hypertension Hyperlipidemia History of renal cell cancer and patient has right kidney mass post cryoablation at [facility] Anemia trending down Sepsis and it seems the patient has urinary tract infection, pneumonia cannot rule out Otomastoiditis as per CT head imaging Acute on chronic kidney insufficiency the patient is getting dialysis--trending down Underlying diabetes mellitus Plan: Routine EEG 09/18/2024 was abnormal due to background slowing of moderate to severe degree. This suggested generalized cerebral dysfunction as can be seen with toxic metabolic encephalopathy or related to diffuse structural brain abnormality. Clinical correlation is recommended. No epileptiform activity was seen. Dr. Leon has recommend MRI of the brain with and without once the patient is extubated and if possible with gadolinium if kidney drastically improves. Patient is on Keppra 500 mg twice daily that was started by the ICU attending TSH 2.07, B12 1077, both normal. Recommend avoiding hypoglycemia and correct electrolyte imbalance CT head revealed no acute intracranial process. Bilateral mastoid air cell and middle ear effusions, correlate for otomastoiditis. I personally reviewed CT head and agree with the findings. Infection diseases on board and there is a concern for ?Otomastoiditis and will defer management to I.D. team. Patient currently on cefepime. Will defer the rest of the medical management the primary and other specialist.
[2024-09-20] MEDS: MORPHINE SULFATE (100 MG/2 ML) 100 MG in SODIUM CHLORIDE 0.9% 100 ML IV SCH (10:33)
[2024-09-20] MEDS: MORPHINE SULFATE 4 MG/ML SYRINGE IV PRN (10:36)
--- NOTE | 2024-09-20 11:19 | P.PN ---
Subjective Progress Note Date: 09/20/24 Principal diagnosis: Acute hypoxic respiratory failure, acute sepsis and septic shock secondary to Serratia marcescens and Enterobacter cloacae and severe LV dysfunction Patient is a 64-year-old male with past medical history significant for diabetes mellitus, chronic kidney disease, hyperlipidemia, hypertension, among other things. Patient is currently in the intensive care unit, he is a poor historian. Unable to provide reliable history. The ER provider did not contact me. Per the ER documentation, patient was found on the ground for an unknown known amount of time, last seen well 2 weeks prior by his sister. He was found to be in acute rhabdomyolysis with acute renal failure. He was also found with elevated blood sugars. CT of the brain and C-spine without contrast showing no acute intracranial process and no acute osseous abnormalities of the C-spine. Initial labs include a CBC: WBC count 17.3, hemoglobin 14.6, hematocrit 45.1, platelets 226. CMP: Sodium 136, potassium 5.7, chloride 95, serum bicarb 14, BUN 137, creatinine 8.82, glucose 578. Lactic 1.5. Magnesium 2.7. LFTs mildly elevated. Troponin 0.043. NT proBNP 4510. EKG: normal sinus rhythm, rate 88 bpm, incomplete RBB pattern, without obvious acute ischemic changes. Urine drug screen unremarkable. Serum ETOH < 10. Currently evaluating this patient in the intensive care unit. CPK was 7555 on arrival. Did receive 1.5 L normal saline bolus in in ED and started on normal saline at 130 ml/hr. Subsequently started on sodium bicarbonate infusion 3 A in D5W at 100 mL/h. urine output is in the order of 30 to 50 cc/h. Nephrology is managing. Repeat potassium is down to 4.7. On arrival blood glucose 578, serum bicarb 12, anion gap 27, acetone positive. Patient has also been started on insulin infusion Per protocol. He did develop some respiratory distress, breathing in the high 40s. I did ask for the pateint to be placed on BiPAP with settings 10/5 and FiO2 to be titrated kushal ropriately. Chest x-ray showing cardiomegaly. There is a left midlung linear infiltrates concerning for atelectasis or early pneumonia. Patient does have bruising to his left lateral chest. It is painful to palpation without crepitus or subcutaneous emphysema. Patient was empirically started on antibiotics in the ED.Current vitals: 97.6 F, blood pressure 115/85 mmHg, heart rate 78 bpm, tachypneic breathing in the high 40s, SpO2 is 100% on BiPAP with settings 10/5 FiO2 100%. Prognosis is guarded. 09/06/24 - Patient seen at bedside this morning, remaining in the ICU, day 2 of hospitalization, admitted on 09/05/24 and in the ICU since that time. He was placed to mechanical ventilation with intubation yesterday (09/05/24). He is on assist-control with a rate of 20, volume 450, FiO2 40%, PEEP of 5. ABG this morning showed pO2 72, pCO2 34, pH 7.46, indicating respiratory alkalosis with relative hypoxemia. Initial improvement in his WBCs down to 13.6 (from 14.8) this morning, his hemoglobin decreased to 11.2. His BUN is 138, creatinine 7.61. Increase in AST, 3-4, and ALT, up to 113. Phosphorus 5.0, remaining 9, calcium 6.6, remaining well. Creatinine Kinase remains elevated, showing improvements, to 6149. His procalcitonin returned at > 100. His blood cultures were positive for Enterobacter cloacae without resistance noted, patient placed on cefepime - discontinued Rocephin and Zithromax. Patient remained Levophed at 0.09 mcg/kg/min (7.26 mcg/min) and propofol 40 mcg/kg/min. Blood pressure this morning 113/52. He will be started on vital HP 10 cc/h, with a goal being 37 cc/h. 09/07/24 - Patient seen at bedside today, remaining in the ICU, day 3 of hospitalization. Admitted on 09/05/24 and in the ICU since that time. He has been intubated on mechanical ventilation since 09/05/24. He remains on assist- control with a rate of 20, volume 450, FiO2 50% and a PEEP of 8. ABG this morning showed pO2 59, pCO2 34, pH 7.46 which indicated respiratory alkalosis with some metabolic alkalosis - this was done while the patient was on an FiO2 of 40%. At that time, patient's FiO2 was up to 50% and his PEEP was increased to 8, since that time he has been saturating well. This morning his WBCs are 9.9, hemoglobin 10.1, platelet count 76, sodium 134, BUN 88, creatinine 4.68, calcium 6.4 and ionized calcium 3.7. Most recent creatinine kinase 2760. Because of the patient's relative hypocalcemia he received 1 g of calcium gluconate. The CVP has been slightly elevated since its insertion, at the time of insertion read ~9, however when seen the patient it was reading 6 indicated the patient is likely euvolemic. Patient remains on Levophed 0.01 mcg/kg/min (8 mcg/min), and on propofol 40 mcg/kg/min and vital HP at 30 cc/h (goal of 37 cc/h). He remains on cefepime and lactated ringer 100 cc/h. His urine was positive, preliminarily, for gram-negative bacilli. Preliminary results of blood culture showed Enterobacter cloacae and Serratia marcescens. 09/08/24 - Patient seen at bedside today, remaining in the ICU, day 4 of hospitalization. Admitted on 09/05/24 and in the ICU since that time. He has been intubated and mechanically ventilated since 09/05/24. He remains on assist-control with a rate of 20, volume 450, FiO2 50% and PEEP of 8. ABG done this morning showed pO2 60, pCO2 32, pH 7.45 indicating a respiratory alkalosis with some evidence of metabolic alkalosis. Patient uneventful overnight. WBCs 10.2, hemoglobin 9.4, sodium 133, BUN 63, creatinine 3.91, calcium 6.7. Patient CVP has been elevated, most recently at 12, indicating some possible hypervolemia. Patient allan on propofol 30 mcg/kg/min, Levophed 0.23 mcg/kg/min (~19 mcg/min), and cefepime. Patient's hemodialysis yesterday, 500 cc was removed. Per the hemodialysis nurse, patient's blood pressure dropped at the start of treatment, leading to pressors being increased at that time. Urine culture now final, positive for Enterobacter cloacae. Blood culture remains preliminary at this time for Enterobacter cloacae and Serratia marcescens. The patient is seen today September 09, 2024 in follow-up in the intensive care unit. He remains intubated on the mechanical ventilator and assist-control mode at a rate of 20, tidal volume 450, FiO2 50% and a PEEP of 8. Morning blood gases revealed a PaO2 of 86, pCO2 33 and a pH of 7.45. He is currently on norepinephrine at 27 mcg/min. Vasopressin at 0.03 units/min. Propofol at 30 mcg/kg/min. Lactated Ringer's at 10 mL/h. Receiving vital HP at 37 mL/h which is goal. He remains on cefepime for Enterobacter Cloacae in the urine. Enterobacter Cloacae and Serratia marcescens in the blood. Have a Tmax last night of 103.4. Currently 99.4. White count 13.5. Hemoglobin 9.6. Platelets 119. Sodium 133. Potassium 3.9. Bicarb 21. BUN 59. Creatinine 3.35. Glucose 245. He is continued on DuoNeb and elations. Heparin for DVT prophylaxis. Remains on Levemir and Lovenox sliding scale. He is currently in a +1.8 L balance. Chest x-ray shows persistent mild to moderate central vascular congestion bilaterally. He has been receiving hemodialysis. On 09/10/2024, the patient is being seen for a follow-up. Remains intubated on the mechanical ventilator. This morning, the patient is on propofol running at 30 mcg/kg/min. He is calm and comfortable and synchronous on mechanical ventilator. He is on assist-control mode of mechanical ventilation at rate of 20, tidal volume of 450, FiO2 of 50% with a PEEP of 5. His chest x-ray from today showing pulmonary vascular congestion and possibly some small bilateral pleural effusion. ET tube is around 4 cm above the nicol. No airspace disease or any consolidations noted. The pH is at 7.39 with a pCO2 of 34 and pO2 of 62. The patient is currently on pressors and is on norepinephrine running at 0.13 mcg/kg/min and he is also on vasopressin physiologic dose regarding his underlying gram-negative sepsis. Antibiotic coverage with IV cefepime for now. Afebrile, urine output is in the order of 5 cc an hour as the patient has developed an acute on top of chronic kidney injury and the fluid balance over the past 24 hours is +2.0 L. The patient is undergoing hemodialysis for now. Hemodialysis catheter is in the right femoral vein. His last hemodialysis session was on 09/09/2024 and another session of hemodialysis is to be done today. The patient blood work from today shows a WBC count of 11.3 with a hemoglobin of 9.7 and a platelet count of 116. Sodium is at 131, bicarb is at 18, potassium is at 4.4, BUN is 81 with a creatinine of 3.8. His liver function tests have improved including a drop in the AST and ALT. Alkaline phosphatase is also down to 218. Albumin is at 1.8 with a total protein of 4.4. As stated earlier, the cultures were positive for Enterobacter in his urine and blood. The blood also showed Serratia marcescens. His echocardiogram done during this current admission shows impaired LV function with an ejection fraction of 30% and there is global decrease in the contractility probably due to his underlying sepsis. He is receiving enteral feeding for nutritional support and is currently on THP vital HP vital HP at a rate of 37 cc an hour. IVF are KVO. On 09/11/2024, the patient is being seen in follow-up in the intensive care unit. The patient remains intubated on the mechanical ventilator. This morning, the patient is on propofol running at 50 mcg/kg/min. Earlier this morning, a blood gas was done as the patient was on a assist-control mode at a rate of 20 with a tidal volume of 450 and FiO2 of 50% with a PEEP of 8. The patient was found to be hypoxic with a pH of 7.41 with a pCO2 of 34 and pO2 54. The PEEP accordingly was brought up to 12. Current pulse ox is around 92 to 93%. The patient is still having episodes of fever. Remains septic and the patient remains on pressors and the patient is currently on norepinephrine running with 0.13 mcg/kg/min and vasopressin at 0.03 units. The patient is on IV cefepime. A CAT scan of the abdomen and pelvis was done yesterday and the patient was found to have consolidation in lung bases bilaterally consistent with pneumonia. Based on that, I recommended broadening his antibiotic coverage. Noted the patient was also supposed to undergo hemodialysis yesterday. He did have a problem with his hemodialysis catheter and the dialys is was not successful. Based on that, the catheter was exchanged and the patient was given another dialysis catheter in his left femoral vein today. Hemodialysis to follow today. The patient remains on vital high-protein for enteral feeding and titrate support at rate of 48 cc an hour. Meanwhile, he is white cell count of 12.6 with a hemoglobin 8.9 and platelet count of 155. BUN is 92 with a creatinine of 4.5 and a sodium levels at 1 of 32 and a potassium level is at 4.4. Serum bicarb is 18. Calcium level is at 7.1. LFTs are within normal limits. Sputum samples were sent for culture. Antibiotic modification was done and the patient was taken off the cefepime and the patient was started on a combination of IV Invanz and Vanco mycin. The patient remains on amiodarone 200 mg p.o. twice a day. The patient is on DuoNeb nebulized treatments [id number]. He is receiving Levemir insulin 20 units twice daily and NovoLog sliding scale coverage. On 09/12/2024, the patient remains intubated on mechanical ventilator. No significant change in his condition since yesterday. Noted the patient was given a session of hemodialysis yesterday and is undergoing another session of hemodialysis this morning. The patient remains sedated on propofol. He remains on 50 mcg/kg/min and the patient will be given a sedation holiday to assess his underlying mental status. He remains on the mechanical ventilator assist- control mode with rate of 20, tidal volume of 450, FiO2 55% with a PEEP of 12. Blood gas showed a pH of 7.47 with a pCO2 of 34 and a pO2 of 81. He is still having episodes of fever with a temperature of 101.6. His antibiotics is modified and the patient is currently on a combination of IV Invanz and vancomycin. Pressor requirements have improved since yesterday and the patient is currently on norepinephrine running at 0.04 mcg/kg/min and the patient is on a vasopressin physiologic dose. IV fluids are KVO. He is on vital high-protein at rate of 35 cc an hour. WBC count is 11 with a hemoglobin of 8.4 and a platelet count of 164. Sodium is at 128, BUN is 63 with a creatinine of 3.58. Potassium levels of 4.2. Sputum samples were obtained yesterday and results are still pending for now. Meanwhile, the patient will be kept on the same antibiotic coverage. Remains on Levemir insulin and the patient is on 20 units twice daily and NovoLog sliding scale coverage. On 09/13/2024, the patient's condition is essentially unchanged. The patient remains sedated and the patient remains on propofol which is running at 50 mcg/kg/min. Remains on the mechanical ventilator, this morning is on assist- control rate of 20, tidal volume of 450, FiO2 55% with a PEEP of 12. Most recent blood gas from this morning showed a pH of 7.47 with a pCO2 of 37 and pO2 of 97. The patient has no major respiratory secretions. The sputum sample that was collected earlier was negative. The chest x-ray findings are essentially unchanged and the patient continues to have stable bibasilar atelectatic changes/limited consolidation. In terms of antibiotic coverage, the patient is currently on a combination of Invanz and vancomycin. He is off norepinephrine. Vasopressin is running at physiologic dose of 0.03 units/min. He is having limited diarrhea. He is on vital high-protein at rate of 35 cc an hour. In terms of his blood work, the white cell count is at 9.9 with a hemoglobin 7.3 and a platelet count of 184. BUN is 52 with a creatinine of 2.8 and a sodium levels at 128 and a potassium level is at 4. Vancomycin trough level was 15. On 09/14/2024, the patient is being seen for a follow-up. The patient is off sedation since yesterday. He is not following commands. Not opening his eyes. Only grimaces to deep painful stimulation. Will continue monitoring his mental status. He remains on mechanical ventilator, assist-control mode rate of 20, tidal volume of 450, FiO2 40% with a PEEP of 10. The blood gas showed a pH of 7.49 with a pCO2 of 38 and a pO2 of 78. He remains on norepinephrine at a dose of 0.02 mcg/kg/min. Underwent hemodialysis yesterday with a total of 1.5 L of ultrafiltration. Continues to have episodes of fever with a Tmax of 102. Remains on a combination of IV Invanz and vancomycin. The patient is receiving enteral feeding for nutritional support. He remains on vital high-protein at rate of 30 cc an hour. LFTs are normal. Nevertheless, the bilirubin is quite elevated and there has been ongoing elevation in bilirubin level which is currently up to 6.8. AST 77, ALT is 39. CAT scan of the abdomen and pelvis sh owed gallstones. No evidence of biliary dilatation or intrahepatic ductal dilatation. The rest of the blood work from today shows a WC of 10.2, hemoglobin 7.9 and platelet count of 232. Sodium is at 128, BUN is 48 with a creatinine of 2.6. On 09/15/2024, the patient is still off sedation and the patient has been off sedation for the past 24 hours. Slightly more arousable on today's evaluation. He tries to move upon tactile stimulation. Does not respond to any verbal commands. He remains intubated on the mechanical ventilator. He remains on assist-control mode rate of 20, tidal volume of 450, FiO2 40% with a PEEP of 5. Blood gas showed a pH of 7.47 with a pCO2 of 40 and pO2 128. Chest x-ray findings are unchanged. He underwent hemodialysis yesterday another session of hemodialysis to be done today. Remains on norepinephrine running at 0.07 mcg/kg/min. The patient is also on vital high-protein at rate of 75 cc an hour. Bilirubin remains elevated. Ultrasound abdomen showed evidence of chronic liver disease possibly cirrhosis. There is also cholelithiasis without evidence of any cholecystitis. There is also moderate hepatomegaly. The bilirubin from today is at 7.1. LFTs remain elevated and the patient has a cholestatic picture. Sodium is at 130 with a potassium of 4 and a chloride of 95 and a serum bicarb is 27. White second 11.5 with hemoglobin 7.4. Ammonia levels are nonelevated. The patient is currently afebrile although he did have a low-grade temperature of 100.3 overnight. On 09/16/2024, neurologically, the patient remains unchanged. Has been off sedation for the past 3 days. He does react to repeated stimulation and tactile stimulation and painful stimulation. Nevertheless, he does not open his eyes spontaneously. Does not follow commands yet. He is afebrile. Remains on a mechanical ventilator assist-control mode with rate of 20, tidal volume of 400, FiO2 of 40% with a PEEP of 8. pH is 7.43 with a pCO2 of 41 and pO2 of 110. [address] x-ray findings are stable. Remains on low-dose norepinephrine 0.04 mcg/kg/min. Hemodialysis was performed yesterday with a total of 1.5 L of ultrafiltration. He is on vital high-protein at rate of 55 cc an hour. The white cell count is at 10 with a hemoglobin 7.5 and platelet count of 342. S odium is 129, BUN is 51 with a creatinine of 2.3 and a potassium level is at 4.1. Remains on broad-spectrum antibiotics. Remains on vancomycin and IV Invanz. Remains quite jaundiced. Awaiting follow-up liver function test. Patient was seen today on , remains in the ICU, intubated and mec hanically ventilated. He is on assist-control rate of 20 tidal volume 450 FiO2 40% and PEEP of 6, ABG showed a pO2 of 124 pCO2 4 0 pH 7.41 hence FiO2 was cut down to 35% patient is undergoing hemodialysis this morning, and the plan is to remove 2 L of fluids. He is on norepinephrine at 0.02 mcg/kg/min, vital HP at 55/55 patient has poor urine output, remains on cefepime for his positive urine and blood cultures. Patient is opens eyes but does not follow any instructions. CODE STATUS has been changed to DNR globin today is 6.9, will hold on blood transfusion, may transfuse in the next 24 hours if we notice a further drop in hemoglobin. WBC count is 9.8 hemoglobin 6.9 electrolytes are normal BUN is 17 creatinine 3.53 chest x-ray is showing ongoing interstitial infiltrates/interstitial edema right more so than left. Patient was reevaluated today on 09/18/2024, remains in the ICU intubated and mechanically ventilated, on assist-control rate of 20 tidal volume 450 FiO2 35% PEEP of 6 patient is undergoing hemodialysis again today, remains on antibiotics/cefepime for positive blood and urine cultures. ABG today showed a pO2 of 92 pCO2 40 pH of 7.43 hence no changes were made in his vent settings. Clinically the patient remains off sedation, opens eyes but does not follow any instructions does not track, does not follow, does not follow any instructions. Today the patient was placed on IMV of 8 pressure support of 14 and CPAP, seems to be tolerating that mode of mechanical ventilation well, and the plan is to taper down IMV mode until we get him on pressure support and CPAP. However I discussed his condition with his sister who is his legal guardian, and family seems to be tempted to consider comfort care measures in the next 24 to 48 hours. Cussed the option of continuing the same treatment for now and possibly consider a trach, definitely no trach per family wishes BBC count is 8.7 hemoglobin is 7, Basic metabolic profile is normal except for sodium of 129 BUN is 54 creatinine 2.69 patient was seen today on 09/19/2024, remains in the ICU, intubated and mech anically ventilated. Patient is on IMV rate of 8 which I increased up to 10 pressure support of 14 tidal volume 450 FiO2 35% and PEEP of 6 ABG showed a pO2 of 105 pCO2 52 pH of 7.34 hence FiO2 was The same and rate increased from 8-10. Patient still requiring norepinephrine at 0.01 mcg/kg/min he is on IV fluids at KVO remains on cefepime remains on enteral feeding/nutritional support, remains on DVT and GI prophylaxis, neurologically the patient is about the same. Family is planning comfort care measures in the next 24 hours. Neurologically patient opens eyes to deep painful stimuli, does not track, does not follow, and does not seem to follow any instructions. WBC count is 8.6 hemoglobin 7.1, sodium 129 potassium today on 09/20/2024, remains in the ICU, intubated and mechanically ventilated. . patient is on IMV rate of 8 pressure support of 14, tidal volume 450 FiO2 35% and PEEP of 16, no ABG was done today, clinically the patient is about the same, opens eyes but does not follow any instructions, does not seem to comprehend. Remains on vital HP at 55 cc/h IV fluid at KVO he is also on cefepime and on heparin. His last hemodialysis was on 09/18 and no hemodialysis has been done in the last 2 days, family is planning to proceed with comfort care measures sometime later today. WBC count is 9.7 hemoglobin 7.1 sodium 128 potassium 5.2 BUN is 17 creatinine 3.73. Objective - Vital Signs Vital signs: Vital Signs Temp 99.6 F 09/20/24 08:00 Pulse 95 09/20/24 09:00 Resp 27 H 09/20/24 08:30 BP 147/67 09/20/24 06:00 Pulse Ox 97 09/20/24 09:00 FiO2 35 09/20/24 08:10 Intake & Output 09/19/24 09/20/24 09/20/24 18:59 06:59 18:59 Intake Total 1112 916.0 45 Output Total 32 40 Balance 1080 876.0 45 Weight 90.7 kg Intake: IV 362 256.0 45 0.9% NS 120 120 30 0.9% NS KVO 120 80 15 Cefepime 1 gm In Sodium 50 50.0 Chloride 0.9% 50 ml @ 12. 5 mls/hr IVPB Q12HR [facility] Rx#:[id number] a line + CVP 72 6 Tube Feeding 660 660 Other 90 Output: Urine 32 40 Other: Voiding Method Indwelling Catheter Indwelling Catheter Indwelling Catheter ABP, PAP, CO, CI - Last Documented Arterial Blood Pressure 168/62 - Exam GENERAL EXAM: Revealed 64-year-old white male intubated mechanically ventilated HEAD: Normocephalic. EYES: Normal reaction of pupils, equal size. NOSE: Clear with pink turbinates. THROAT: Oral endotracheal and gastric tube secured in place. No erythema or exudates. NECK: No neck masses no JVD no stridor CHEST: No chest wall deformity. LUNGS: Minimal crackles and rhonchi at the bases CVS: Normal S1-S2, no S3 gallop, no murmur ABDOMEN: No hepatosplenomegaly, normal bowel sounds, no guarding or rigidity. SKIN: No rashes CENTRAL NERVOUS SYSTEM: Opens eyes, does not follow any instructions EXTREMITIES: There is 1+ peripheral edema. No clubbing, no cyanosis. Peripheral pulses are intact. - Labs CBC & Chem 7: 09/20/24 02:30 09/20/24 02:30 Labs: Abnormal Lab Results - Last 24 Hours (Table) 09/19/24 09/19/24 09/19/24 Range/Units 12:32 17:24 23:40 RBC (4.30-5.90) m/uL Hgb (13.0-17.5) gm/dL Hct (39.0-53.0) % RDW (11.5-15.5) % Plt Count (150-450) k/uL Sodium (137-145) mmol/L Potassium (3.5-5.1) mmol/L BUN (9-20) mg/dL Creatinine (0.66-1.25) mg/dL Glucose (74-99) mg/dL POC Glucose (mg/dL) 172 H 178 H 204 H (70-110) mg/dL Calcium (8.4-10.2) mg/dL 09/20/24 09/20/24 09/20/24 Range/Units 02:30 02:30 06:08 RBC 2.40 L (4.30-5.90) m/uL Hgb 7.1 L (13.0-17.5) gm/dL Hct 22.0 L (39.0-53.0) % RDW 15.7 H (11.5-15.5) % Plt Count 509 H (150-450) k/uL Sodium 128 L (137-145) mmol/L Potassium 5.2 H (3.5-5.1) mmol/L BUN 79 H (9-20) mg/dL Creatinine 3.73 H (0.66-1.25) mg/dL Glucose 166 H (74-99) mg/dL POC Glucose (mg/dL) 179 H (70-110) mg/dL Calcium 6.7 L (8.4-10.2) mg/dL Microbiology - Last 24 Hours (Table) 09/14/24 15:40 Blood Culture - Final Blood Assessment and Plan Assessment: Impression Acute hypoxic respiratory failure, requiring mechanical ventilation and intubation on 09/05/24. Respiratory failure is multifactorial. The patient presented with significant metabolic derangements, acute on top of chronic renal failure, sepsis and decompensated heart failure. Remains intubated urine cultures are positive for Enterobacter cloacae, blood cultures are positive for Enterobacter cloacae and Serratia marcescens Acute rhabdomyolysis, resolved Acute on top of chronic kidney disease. Acute systolic heart failure with an ejection fraction of 30% Sepsis, secondary to urinary tract infection. Altered mentation, secondary to acute metabolic encephalopathy, not showing any improvement in spite of sedation and narcotics been on hold for quite some time now. Hypertension Mechanical fall, is on home 2 weeks prior Hyperkalemia, resolved History of hypertension Hyperlipidemia diabetes mellitus type 2 Right kidney mass, post cryoablation at [facility] (renal cell ca) Plan: Discussed his condition with his sister at bedside again today, waiting for more family members to initiate the process of comfort care measures. Continue ventilatory support, IMV/pressure support mode of mechanical ventilation Continue hemodynamic support, intermittently on norepinephrine, until a final decision is made about comfort care. Continue antibiotics/cefepime, discontinue after final decision is made regarding comfort care Continue to hold narcotics and sedatives, patient could be placed on morphine drip postextubation today if we proceed with terminal weaning Hold on any plans for hemodialysis Continue Levemir insulin 20 units twice daily along with a sliding scale coverage Continue bronchodilators Heparin for DVT prophylaxis Continue nutritional support/enteral feeding Patient is critically ill Critical care time is over 30 minutes Time with Patient: Greater than 30
[2024-09-20] MEDS: ATROPINE OPHTH SOLN 1% 5ML BTL SUBLINGUAL PRN (14:06)
[2024-09-20 22:37] VITALS: RESP 8
[2024-09-20 22:38] VITALS: BP 138/68; PULSE 59; TEMP 98.7
--- NOTE | 2024-09-21 02:25 | PN ---
PROGRESS NOTE DATE OF SERVICE: 09/20/2024 SUBJECTIVE: This is a 64-year-old gentleman, who was admitted after Enterobacter cloaca sepsis and acute UTI, has been transitioned to comfort measures at this time. The patient was started on morphine. No chest pain. No palpitation. OBJECTIVE: VITAL SIGNS: Pulse 87, blood pressure 158/52, respirations 20. HEENT: Conjunctivae normal. NECK: No JVD. CARDIOVASCULAR: S1, S2. RESPIRATIONS: Breath sounds diminished at the bases. ABDOMEN: Soft. LABORATORY DATA: Reviewed. ASSESSMENT: 1. Enterobacter cloacae sepsis and acute urinary tract infection, present on admission. 2. Acute hypoxic respiratory failure, status post mechanical ventilation. 3. Acute on chronic renal failure, on hemodialysis. 4. Anemia, multifactorial. 5. Acute diabetic ketoacidosis present on admission. 6. Acute rhabdomyolysis. 7. Diabetes mellitus, type 2. 8. Hyperlipidemia. 9. Jaundice with liver failure. 10.Bilateral pneumonia. 11.NO CODE. NO CPR. NO VENT. 12.Comfort measures and hospice. RECOMMENDATIONS: Recommend to continue current medications. I will continue the hospice measures. Continue with morphine drip and morphine p.r.n. Otherwise, closely follow with hospice. Prognosis guarded. Further recommendations to follow. See orders for further details. MMODL / IJN: [id number] /
--- NOTE | 2024-09-21 11:00 | P.PN ---
Subjective Progress Note Date: 09/20/24 09/20/2024: Patient was seen for follow-up. Patient apparently has been terminally weaned, in hospice care, on morphine drip 8 mg/h. 09/19/2024: Patient was seen for a follow-up. Patient appears slightly worse today, not as responsive as yesterday. Patient continues to be intubated. Not on any pressors. 09/18/2024: Patient was initially seen by Dr. Vance Leon yesterday. Please refer to his note for details. Patient is 64-year-old male, who was found down and he has multiple medical issues. Patient has sepsis, hypoglycemia. He recently had questionable seizure-like activity and Dr. Leon felt was provoked. Patient is on Keppra. EEG was completed today. No seizure-like activity has been witnessed. Patient is present is intubated. Patient is currently on norepinephrine 0.02 mcg/mg per minute. Please refer to examination below for details. Some of the other workup during this hospital visit consisted of: Patient continues to be febrile, with T-max of 101.0. Ionized calcium is 3.7. His creatinine is trending down currently is 2.69 Ammonia level is 18. His AST and ALT is trending down Urine culture is gram-negative bacilli, Enterobacter. Blood culture is positive for Serratia and Enterobacter Repeat CT of the head on 09/16/2024 is reported as no acute intracranial process. Bilateral mastoid cell and middle ear effusion correlate for otomastoiditis. I personally viewed the CT and I agree there is no acute or subacute stroke. Objective - Vital Signs Vital signs: Vital Signs Temp 99.6 F 09/20/24 08:00 Pulse 95 09/20/24 09:00 Resp 27 H 09/20/24 08:30 BP 147/67 09/20/24 06:00 Pulse Ox 97 09/20/24 09:00 FiO2 35 09/20/24 08:10 Intake & Output 09/19/24 09/20/24 09/20/24 18:59 06:59 18:59 Intake Total 1112 916.0 71.303 Output Total 32 40 5 Balance 1080 876.0 66.303 Weight 90.7 kg Intake: IV 362 256.0 55 0.9% NS 120 120 30 0.9% NS KVO 120 80 25 Cefepime 1 gm In Sodium 50 50.0 Chloride 0.9% 50 ml @ 12. 5 mls/hr IVPB Q12HR [facility] Rx#:[id number] a line + CVP 72 6 Intake, IV Titration 16.303 Amount Morphine Sulfate (100 mg/ 16.303 2 ml) 100 mg In Sodium Chloride 0.9% 100 ml @ 1 MG/HR 1.02 mls/hr IV . Q24H [facility] Rx#:[id number] Tube Feeding 660 660 Other 90 Output: Urine 32 40 5 Other: Voiding Method Indwelling Catheter Indwelling Catheter Indwelling Catheter ABP, PAP, CO, CI - Last Documented Arterial Blood Pressure 168/62 - Exam Patient is extubated, terminally weaned, on morphine drip at 8 mg/h. Patient appears comfortable. Appears pale. - Labs CBC & Chem 7: 09/20/24 02:30 09/20/24 02:30 Labs: Abnormal Lab Results - Last 24 Hours (Table) 09/19/24 09/20/24 09/20/24 Range/Units 23:40 02:30 02:30 RBC 2.40 L (4.30-5.90) m/uL Hgb 7.1 L (13.0-17.5) gm/dL Hct 22.0 L (39.0-53.0) % RDW 15.7 H (11.5-15.5) % Plt Count 509 H (150-450) k/uL Sodium 128 L (137-145) mmol/L Potassium 5.2 H (3.5-5.1) mmol/L BUN 79 H (9-20) mg/dL Creatinine 3.73 H (0.66-1.25) mg/dL Glucose 166 H (74-99) mg/dL POC Glucose (mg/dL) 204 H (70-110) mg/dL Calcium 6.7 L (8.4-10.2) mg/dL 09/20/24 Range/Units 06:08 RBC (4.30-5.90) m/uL Hgb (13.0-17.5) gm/dL Hct (39.0-53.0) % RDW (11.5-15.5) % Plt Count (150-450) k/uL Sodium (137-145) mmol/L Potassium (3.5-5.1) mmol/L BUN (9-20) mg/dL Creatinine (0.66-1.25) mg/dL Glucose (74-99) mg/dL POC Glucose (mg/dL) 179 H (70-110) mg/dL Calcium (8.4-10.2) mg/dL Microbiology - Last 24 Hours (Table) 09/14/24 15:40 Blood Culture - Final Blood Assessment and Plan Assessment: This is a 64-year-old gentleman who presented emergency department on 09/04/2024 since was found down and unknown downtime and he was found last normal by his sister about 2 weeks ago prior to that. He presents with acute rhabdomyolysis and has sepsis, acute renal failure. It seems that on 09/16/2024 around 1830 p atient had possible seizure-like activity noted by the nurse lasting for 1 minute with questionable postictal event for 30 minutes. The last 2 days patient has been having sugar in the 40s to 50s. Possible seizure-like activity and probably provoked due to hypoglycemia, electrolyte imbalance underlying infection. Altered mental status seems due to multifactorial, metabolic encephalopathy, septic encephalopathy, hepatic encephalopathy, . On examination patient tracks looking to the left and moves head [id number]. Hypoglycemia as low as 40s to 50s Hypocalcemia Acute rhabdomyolysis--trending down Mechanical fall at home 2 weeks prior Transaminitis Hypertension Hyperlipidemia History of renal cell cancer and patient has right kidney mass post cryoablation at [facility] Anemia trending down Sepsis and it seems the patient has urinary tract infection, pneumonia cannot rule out Otomastoiditis as per CT head imaging Acute on chronic kidney insufficiency the patient is getting dialysis--trending down Underlying diabetes mellitus Status post terminal weaning, now on hospice. Plan: Patient has been terminally weaned, on morphine drip at 8 mg/h. Patient in hospice. Routine EEG 09/18/2024 was abnormal due to background slowing of moderate to severe degree. This suggested generalized cerebral dysfunction as can be seen with toxic metabolic encephalopathy or related to diffuse structural brain abnormality. Clinical correlation is recommended. No epileptiform activity was seen. Dr. Leon has recommend MRI of the brain with and without once the patient is ex tubated and if possible with gadolinium if kidney drastically improves. Patient is on Keppra 500 mg twice daily that was started by the ICU attending TSH 2.07, B12 1077, both normal. Recommend avoiding hypoglycemia and correct electrolyte imbalance CT head revealed no acute intracranial process. Bilateral mastoid air cell and middle ear effusions, correlate for otomastoiditis. I personally reviewed CT head and agree with the findings. Infection diseases on board and there is a concern for ?Otomastoiditis and will defer management to I.D. team. Patient currently on cefepime. We will sign off. Discussed with patient's nurse.
--- NOTE | 2024-09-21 11:20 | P.DS ---
Providers Date of admission: 09/04/24 18:11 Expected date of discharge: 09/20/24 Attending physician: Logan Lewis Consults: 09/04/24 18:07 Consult Physician Routine Consulting Provider: Apollo Leon Consult Reason/Comments: icu Do you want consulting provider notified?: Yes 09/04/24 18:09 Consult Physician Routine Consulting Provider: Andrei Arguello Consult Reason/Comments: rhabdo Do you want consulting provider notified?: Yes 09/05/24 09:38 Consult Physician Routine Consulting Provider: Evelyne Galdamez Consult Reason/Comments: fever sepsis Do you want consulting provider notified?: Yes 09/05/24 14:07 Consult Physician Routine Consulting Provider: Faye Lerma Consult Reason/Comments: Troponin elevation, CHF Do you want consulting provider notified?: Yes 09/17/24 10:42 Consult Physician Routine Consulting Provider: Vance Leon Consult Reason/Comments: possible seizure activity 09/16 1830 for approx. 1 min Do you want consulting provider notified?: Yes Primary care physician: [facility] Hospital Course: Preliminary cause of Sepsis secondary to urinary tract infection, present on admission with Enterobacter Cloquae Final diagnosis Enterobacter cloacae sepsis with acute urinary tract infection, present on admission Altered mental status, multifactorial with metabolic encephalopathy and septic encephalopathy with hepatic encephalopathy on admission Acute hypoxic respiratory failure, status post mechanical ventilation Acute on chronic renal failure, requiring hemodialysis Anemia, multifactorial Acute DKA, present on admission that had resolved with uncontrolled diabetes type 2 with hyper and hypoglycemia Acute rhabdomyolysis, traumatic with prolonged downtime Diabetes mellitus, type II history uncontrolled with hyperglycemia History of renal cell carcinoma and had a right kidney mass status post cryoablation at [facility] Hyperlipidemia Jaundice with liver failure Bilateral pneumonia No code, no CPR, no event Discharge disposition Patient has . According to nursing documentation, time of was 2315 09/20/2024. Patient family had removed patient from all treatment care and requesting comfort measures and patient was placed on morphine drip and with family at bedside. Total time taken greater than 35 minutes Hospital course This is a 64-year-old male who was recently admitted with sepsis and acute urinary tract infection with acute hypoxic respiratory failure requiring mechanical ventilation. Multiple comorbidities ongoing including acute on chronic renal failure leading to hemodialysis. Patient was maintained on hemodialysis along with continued antibiotics showing no significant improvements and family did not want to proceed with tracheostomy and PEG tube. Patient family had discussion and wanted to proceed with comfort measures. Care was transitioned to morphine drip and patient at 2315 on 09/20/2024. Refer to other consultation notes and director audience marketing notes along with nursing notes for further HPI. Overall prognosis was extremely poor. The impression and plan of care has been dictated as a scribe by Eneida James, Nurse Practitioner as directed. Dr. Joshua MD I have performed a history and examination and MDM of this patient, discussed the same with the dictator, and agree with the dictator's assessment and plan a s written ,documented as a scribe. Based on total visit time, I have performed more than 50% of the visit. Patient Condition at Discharge: Critical Plan - Discharge Summary New Discharge Prescriptions: No Action Lovastatin [Mevacor] 40 mg PO W/SUPPER Ferrous Sulfate [Iron (65 MG Elemental)] 325 mg PO DAILY hydrALAZINE HCL [Apresoline] 100 mg PO TID Furosemide [Lasix] 40 mg PO BID@0900,1600 allopurinoL [Zyloprim] 100 mg PO BID Isosorbide Mononitrate ER [Imdur] 30 mg PO DAILY Glimepiride [Amaryl] 8 mg PO W/BRKFST Famotidine [Pepcid] 20 mg PO HS PRN PRN Reason: Gi Upset carvediloL [Coreg] 25 mg PO BID-W/MEALS metFORMIN HCL ER [Glucophage XR] 500 mg PO DAILY amLODIPine [Norvasc] 5 mg PO DAILY Tamsulosin [Flomax] 0.4 mg PO HS calcitrioL [Rocaltrol] 0.25 mcg PO Q7D lisinopriL [Zestril] 2.5 mg PO DAILY Dulaglutide [Trulicity] 3 mg SQ Q7D Dapagliflozin Propanediol [Farxiga] 5 mg PO DAILY Discharge Medication List Lovastatin [Mevacor] 40 mg PO W/SUPPER 05/01/18 [History] Ferrous Sulfate [Iron (65 MG Elemental)] 325 mg PO DAILY 06/17/22 [History] Furosemide [Lasix] 40 mg PO BID@0900,1600 08/05/22 [History] hydrALAZINE HCL [Apresoline] 100 mg PO TID 08/05/22 [History] Isosorbide Mononitrate ER [Imdur] 30 mg PO DAILY 12/10/22 [History] allopurinoL [Zyloprim] 100 mg PO BID 12/10/22 [History] Famotidine [Pepcid] 20 mg PO HS PRN 05/06/23 [History] Glimepiride [Amaryl] 8 mg PO W/BRKFST 05/06/23 [History] carvediloL [Coreg] 25 mg PO BID-W/MEALS 05/06/23 [History] metFORMIN HCL ER [Glucophage XR] 500 mg PO DAILY 05/06/23 [History] Dulaglutide [Trulicity] 3 mg SQ Q7D 04/25/24 [History] amLODIPine [Norvasc] 5 mg PO DAILY 04/25/24 [History] lisinopriL [Zestril] 2.5 mg PO DAILY 04/25/24 [History] Dapagliflozin Propanediol [Farxiga] 5 mg PO DAILY 09/04/24 [History] Tamsulosin [Flomax] 0.4 mg PO HS 09/04/24 [History] calcitrioL [Rocaltrol] 0.25 mcg PO Q7D 09/04/24 [History] Follow up Appointment(s)/Referral(s): [facility]-STAFF] - 1 Week Tawanna Canela MD [Primary Care Provider] - 1-2 days Discharge Disposition: - Preliminary Cause of Preliminary Cause of : Sepsis secondary to urinary tract infection, present on admission with Ente
--- NOTE | 2024-09-22 20:47 | CDI ---
Documentation Clarification Form Date: 09/22/2024 08:31:31 PM From: Pam Jones Phone: Admit Date: 09/04/2024 06:11:00 PM Patient Name: Gopi York Visit Number: [id number] Discharge Date: 09/20/2024 11:15:00 PM ATTENTION: The Clinical Documentation Specialists (CDI) and [facility] Coding Staff appreciate your assistance in clarifying documentation. Please respond to the clarification below the line at the bottom and electronically sign. The CDI & [facility] Coding staff will review the response and follow-up if needed. Please note: Queries are made part of the Legal Health Record. If you have any questions, please contact the author of this message via ITS. Doctor/Provider: Hanh Han Unspecified CKD is documented stage IIIB to 4 per Consult Note 09/05. Additional clarification regarding the stage of CKD is requested. History/Risk Factors: 64yo M, ATNfromhypotension, rhabdo, UTI, AGMA d/t DMKA, AHR, uncontrolled DMIIwith hype/hypoglycemia, hyperkalemia Historical: baseline creatinine at 1.8-2.0 mg/dL Clinical Indicators: BUN: 09/04 137 09/08 63 09/10 81 09/11 92 CR: 09/04 8.82 09/08 3.91 09/10 3.87 09/11 4.53 GFR: 09/04 6-7 09/08 15-18 09/10 15-09/11 13-15 Treatment: temp HD; patient Please clarify the stage of the CKD, if known: [ x ] CKD Stage 3b [ ] CKD Stage 4 [ ] Other, please specify [ ] Unable to determine Reference: National Kidney Foundation Stage 1 eGFR = 90 and kidney damage for =3 months Stage 2 eGFR 60-89 and kidney damage for =3 months Stage 3a eGFR 45-59 and kidney damage for =3 months Stage 3b eGFR 30-44 and kidney damage for =3 months Stage 4 eGFR 15-29 r and kidney damage for =3 months Stage 5 eGFR <15 and kidney damage for =3 months (Template last revised: September 2023) MTDD
--- NOTE | 2024-09-22 20:52 | CDI ---
Documentation Clarification Form Date: 09/22/2024 08:31:31 PM From: Pam Jones Phone: Admit Date: 09/04/2024 06:11:00 PM Patient Name: Gopi York Visit Number: [id number] Discharge Date: 09/20/2024 11:15:00 PM ATTENTION: The Clinical Documentation Specialists (CDI) and [facility] Coding Staff appreciate your assistance in clarifying documentation. Please respond to the clarification below the line at the bottom and electronically sign. The CDI & [facility] Coding staff will review the response and follow-up if needed. Please note: Queries are made part of the Legal Health Record. If you have any questions, please contact the author of this message via ITS. Doctor/Provider: Hanh Han Unspecified CKD is documented stage IIIB to 4 per Consult Note 09/05. Additional clarification regarding the stage of CKD is requested. History/Risk Factors: 64yo M, ATNfromhypotension, rhabdo, UTI, AGMA d/t DMKA, AHR, uncontrolled DMIIwith hype/hypoglycemia, hyperkalemia Historical: baseline creatinine at 1.8-2.0 mg/dL Clinical Indicators: BUN: 09/04 137 09/08 63 09/10 81 09/11 92 CR: 09/04 8.82 09/08 3.91 09/10 3.87 09/11 4.53 GFR: 09/04 6-7 09/08 15-18 09/10 15-09/11 13-15 Treatment: temp HD; patient Please clarify the stage of the CKD, if known: [ x ] CKD Stage 3b [ ] CKD Stage 4 [ ] Other, please specify [ ] Unable to determine Reference: National Kidney Foundation Stage 1 eGFR = 90 and kidney damage for =3 months Stage 2 eGFR 60-89 and kidney damage for =3 months Stage 3a eGFR 45-59 and kidney damage for =3 months Stage 3b eGFR 30-44 and kidney damage for =3 months Stage 4 eGFR 15-29 r and kidney damage for =3 months Stage 5 eGFR <15 and kidney damage for =3 months (Template last revised: September 2023) MTDD
--- NOTE | 2024-09-22 21:06 | CDI ---
Documentation Clarification Form Date: 09/22/2024 08:53:20 PM From: Pam Jones Phone: Admit Date: 09/04/2024 06:11:00 PM Patient Name: Gopi York Visit Number: [id number] Discharge Date: 09/20/2024 11:15:00 PM ATTENTION: The Clinical Documentation Specialists (CDI) and [facility] Coding Staff appreciate your assistance in clarifying documentation. Please respond to the clarification below the line at the bottom and electronically sign. The CDI & [facility] Coding staff will review the response and follow-up if needed. Please note: Queries are made part of the Legal Health Record. If you have any questions, please contact the author of this message via ITS. Doctor/Provider: Chucho Aguilera Your patient has the documented diagnosis: Acute onchronic diastolic heart failure per H&P and Progress Note 09/06 Acute on chronic systolic heart failure per Progress 09/07 and multiple following Clarification regarding the type of CHF is requested. History/Risk Factors: 64yo M, ATNfromhypotension, rhabdo, UTI, AGMA d/t DMKA, AHR, uncontrolled DMIIwith hype/hypoglycemia, hyperkalemia, CKD, NSTEMI II Clinical Indicators: VS/Pulse OX: 91 BNP: 4510 Echo: reducedEF of 30 to 35%with nopericardial effusionwithaortic valve sclerosis Chest X Ray: 09/04 The heart size is the prominent. The pulmonary vasculature is normal. There is some mild linearopacitywithin the left peripheral midlung. Correlate foratelectasis. Earlypneumoniacould be considered. Treatment: Continue supportive Tx. Start low-dose statin withelevated troponins. Resume beta-blockers once offLevophed. No further recommendations from the cardiac standpoint In your professional opinion, can you please clarify the type of CHF if known? [ XXX] Acute on Chronic Systolic Heart Failure (reduced EF) (Template Last Revised: October 2020) The differentiation between systolic and diastolic is very clear on the Medicare ICD classification of diseases Ejection fraction 50% and above is classified diastolic heart failure Below that threshold of 50% is considered systolic heart failure Very often when the patient comes to the hospital physicians do not know the cardiac systolic function is and the H&P therefore reflects past documentation/previous notation Once the echo was performed reduced systolic function was noted and therefore that becomes systolic in nature and hence the progress note on the 13th reflected that This should be obvious to a lead man over all dies in pattern shop and should never need clarification because it is fairly obvious Since there is documentation of systolic on the progress note of 1213 and there is an echo report in the chart noting a left ventricular ejection fraction of less than 50%, a lead man over all dies in pattern shop should be able to directly assign this heart failure as systolic in nature. This would not be considered an unlawful act in any court of law and would be very defensible. I believe this is the coders job; otherwise we can simply have billers without recruiting coders. MTDMarlin
== END 2024-09-20 23:15 | disposition expired | DRG 870 ==
LOC: EC 16:36 → 2SICU 18:11
PROVIDERS: ADMIT Hospitalist; ATTEND Hospitalist
PROC: 5A1955Z Respiratory Ventilation, Greater than 96 Consecutive Hours (ICD-10-PCS; principal; 2024-09-05)
PROC: 0BH18EZ Insertion of Endotracheal Airway into Trachea, Via Natural or Artificial Opening Endoscopic (ICD-10-PCS; principal; 2024-09-05)
PROC: 03HY32Z Insertion of Monitoring Device into Upper Artery, Percutaneous Approach (ICD-10-PCS; 2024-09-05)
PROC: 4A133B1 Monitoring of Arterial Pressure, Peripheral, Percutaneous Approach (ICD-10-PCS; 2024-09-05)
PROC: 4A133J1 Monitoring of Arterial Pulse, Peripheral, Percutaneous Approach (ICD-10-PCS; 2024-09-05)
PROC: 02HV33Z Insertion of Infusion Device into Superior Vena Cava, Percutaneous Approach (ICD-10-PCS; 2024-09-05)
PROC: 3E043XZ Introduction of Vasopressor into Central Vein, Percutaneous Approach (ICD-10-PCS; 2024-09-05)
PROC: 5A09357 Assistance with Respiratory Ventilation, Less than 24 Consecutive Hours, Continuous Positive Airway Pressure (ICD-10-PCS; 2024-09-05)
PROC: 06HY33Z Insertion of Infusion Device into Lower Vein, Percutaneous Approach (ICD-10-PCS; 2024-09-06)
PROC: 5A1D80Z Performance of Urinary Filtration, Prolonged Intermittent, 6-18 hours Per Day (ICD-10-PCS; 2024-09-06)
PROC: 06HY33Z Insertion of Infusion Device into Lower Vein, Percutaneous Approach (ICD-10-PCS; 2024-09-11)
DX: A41.53 Sepsis due to Serratia (principal); E11.10 Type 2 diabetes mellitus with ketoacidosis without coma; N17.0 Acute kidney failure with tubular necrosis; R65.21 Severe sepsis with septic shock; J96.01 Acute respiratory failure with hypoxia; G93.41 Metabolic encephalopathy; I21.A1 Myocardial infarction type 2; J18.9 Pneumonia, unspecified organism; I50.23 Acute on chronic systolic (congestive) heart failure; T82.868A Thrombosis due to vascular prosthetic devices, implants and grafts, initial encounter; I82.411 Acute embolism and thrombosis of right femoral vein; I13.0 Hypertensive heart and chronic kidney disease with heart failure and stage 1 through stage 4 chronic kidney disease, or unspecified chronic kidney disease; F05 Delirium due to known physiological condition; E87.3 Alkalosis; E87.1 Hypo-osmolality and hyponatremia; N39.0 Urinary tract infection, site not specified; Z66 Do not resuscitate; Z51.5 Encounter for palliative care; K76.82 Hepatic encephalopathy; T79.6XXA Traumatic ischemia of muscle, initial encounter; D69.6 Thrombocytopenia, unspecified; R56.9 Unspecified convulsions; E11.22 Type 2 diabetes mellitus with diabetic chronic kidney disease; E11.649 Type 2 diabetes mellitus with hypoglycemia without coma; N18.32 Chronic kidney disease, stage 3b; D63.1 Anemia in chronic kidney disease; E87.5 Hyperkalemia; R16.0 Hepatomegaly, not elsewhere classified; E83.39 Other disorders of phosphorus metabolism; E83.51 Hypocalcemia; E78.5 Hyperlipidemia, unspecified; E86.0 Dehydration; K80.20 Calculus of gallbladder without cholecystitis without obstruction; N50.89 Other specified disorders of the male genital organs; B96.89 Other specified bacterial agents as the cause of diseases classified elsewhere; W19.XXXA Unspecified fall, initial encounter; Y71.1 Therapeutic (nonsurgical) and rehabilitative cardiovascular devices associated with adverse incidents; Y92.009 Unspecified place in unspecified non-institutional (private) residence as the place of occurrence of the external cause; Z85.528 Personal history of other malignant neoplasm of kidney; Z79.84 Long term (current) use of oral hypoglycemic drugs; Z79.899 Other long term (current) drug therapy; Z87.440 Personal history of urinary (tract) infections
CPT/HCPCS: 36415; 36600; 70450; 71045; 72125; 74176; 76705; 76770; 80048; 80053; 80143; 80179; 80202; 80306; 80320; 81001; 82009; 82140; 82330; 82533; 82550; 82607; 82803; 82805; 83010; 83605; 83615; 83735; 83880; 84100; 84145; 84443; 84484; 85025; 85027; 85610; 85730; 86022; 86706; 86850; 86900; 86901; 87040; 87070; 87077; 87086; 87186; 87205; 87324; 87340; 87449; 87636; 90935; 93005; 93306; 94002; 94003; 94640; 94660; 95822; 96361; 96365; 96366; 96375; 99291